=== PATIENT | female | born 1960 | race Caucasian/White ===

== ENCOUNTER 2023-05-25 08:48 | Outpatient (OUT) | payer OTHER, SELFPAY ==
--- NOTE | 2023-05-25 09:02 | ECG_ITS ---
[facility] Test Date: 2023-05-25 Pat Name: SULY HUFFMAN Department: Room: - Gender: Female [employer]: : [id number] Requested By: MATTHEW VICENTE Order Number: [id number] Reading MD: ODALYS SALAZAR Measurements Intervals [place] Rate: 44 P: 25 NC: 193 QRS: -42 QRSD: 108 T: -16 QT: 490 QTc: 421 Interpretive Statements SINUS BRADYCARDIA MARKED LEFT AXIS DEVIATION [QRS AXIS < -30] MINIMAL ST DEPRESSION [0.025+ mV ST DEPRESSION, can't exclude inferolateral ischemia Compared to ECG 05/22/2019 11:27:37 Electronically Signed On 05-26-2023 6:38:53 EDT by ODALYS SALAZAR
[2023-05-25 09:54] LABS: Anion Gap 12.9; BUN Creatinine Ratio 19.6; Carbon Dioxide 29.9 mmol/L (21.0-32.0); Chloride 102 mmol/L (98-107); Estimated GFR (African America >60 (>=60); Estimated GFR (Non-African Ame 50 (>=60); Glucose 123 mg/dL (74-106); Sodium 142 mmol/L (136-145)
[2023-05-25 10:06] LABS: Potassium 2.8 mmol/L (3.5-5.1)
== END 2023-05-25 08:49 | disposition home or self-care (01) ==
LOC: PST 08:51
PROVIDERS: PCP Family Medicine; Visit Provider Obstetrics & Gynecology
DX: Z01.810 Encounter for preprocedural cardiovascular examination (principal); Z01.812 Encounter for preprocedural laboratory examination; D25.0 Submucous leiomyoma of uterus; R10.2 Pelvic and perineal pain
CPT/HCPCS: 80048; 93005

== ENCOUNTER 2023-06-01 13:09 | Outpatient (OUT) | payer OTHER, SELFPAY ==
--- OUTSIDE RECORDS SUMMARY | 2023-06-01 13:23 | XMS_ITS | CCD ---
Author Name Unknown Address [address] [facility] [address] [place] [address] Organization [facility] Care Team Providers Care Athletic Monitor Name Role Phone WADDELL, SELINA S Admitting Unavailable WADDELL, SELINA S Attending Unavailable ELADIA DAVID Primary Care Unavailable ELADIA DAVID Admitting Unavailable ELADIA DAVID Attending Unavailable MISC, DOCTOR Primary Care Unavailable MISC, DOCTOR Consulting Unavailable GILDA REZA Consulting Unavailable WADDELL, SELINA S Admitting Unavailable WADDELL, SELINA S Attending Unavailable ELADIA DAVID Primary Care Unavailable WADDELL, SELINA S Consulting Unavailable WADDELL, SELINA S Admitting Unavailable WADDELL, SELINA S Attending Unavailable ELADIA DAVID Primary Care Unavailable WADDELL, SELINA S Consulting Unavailable WADDELL, SELINA S Admitting Unavailable WADDELL, SELINA S Attending Unavailable ELADIA DAVID Primary Care Unavailable CLINKER, YRIS Consulting Unavailable WADDELL, SELINA S Admitting Unavailable WADDELL, SELINA S Attending Unavailable ELADIA DAVID Primary Care Unavailable WADDELL, SELINA S Consulting Unavailable WADDELL, SELINA S Admitting Unavailable WADDELL, SELINA S Attending Unavailable ELADIA DAVID Primary Care Unavailable WADDELL, SELINA S Consulting Unavailable CLINKER, YRIS Consulting Unavailable WADDELL, SELINA S Admitting Unavailable WADDELL, SELINA S Attending Unavailable ELADIA DAVID Primary Care Unavailable CLINKER, YRIS Consulting Unavailable WADDELL, SELINA S Admitting Unavailable WADDELL, SELINA S Attending Unavailable ELADIA DAVID Consulting Unavailable WADDELL, SELINA S Consulting Unavailable WADDELL, SELINA S Admitting Unavailable WADDELL, SELINA S Attending Unavailable ELADIA DAVID Primary Care Unavailable ELADIA DAVID Primary Care Unavailable NING MCDERMOTT Admitting Unavailable NING MCDERMOTT Attending Unavailable FALGUNI DAVID Consulting Unavailable LOUISE CORCORAN Consulting Unavailable PHIL FRANZ Consulting Unavailable COURTNEY LION Referring Unavailable ELADIA BRAN Primary Care Un available NICOLASA HANNAH Referring Unavailable ELADIA BRAN Primary Care Un available COURTNEY LION Referring Unavailable ELADIA BRAN Primary Care Un available JOSE MICHAEL Consulting Unavailable ELADIA BRAN Primary Care Un available CECILIO SHERMAN Admitting Unavailable CECILIO SHERMAN Attending Unavailable LELA STEPHENS Consulting Unavailable DARRYN CHARLES Consulting Unavailable CECILIO SHERMAN Consulting Unavailable GARFIELD DUMONT Consulting Unavailable CRISTOPHER MCNAIR Consulting Unavailable GERALDINE HUSAIN Consulting Unavailable JESÚS DARBY Consulting Unavailable Eladia Bran Primary Care Provi archana Hussain Kay II Admitting Unavaila shaheen Kay II, Hussain Cowan Attending UnavailEladia Joseph Primary Care Unavailable Eladia David Referring Unavailable MATTEHW VICENTE Attending Unavailable MATTHEW VICENTE Attending Unavailable WHIT GODINEZ Attending Unavailable Allergies Allergy Classification Reported Allergen(s) Allergy Type Date of Onset Reaction(s) Facility (2 sources) Amoxicillin / Clavulanate Drug Allergy 7 [facility] Repository (4 sources) Amoxicillin-Pot Clavulanate Propensity to adverse reactions to drug 0 [place], [place] (2 sources) Amoxicillin; Translations: [amoxicillin] Drug Allergy 1 [facility] (2 sources) Clavulanate; Translations: [clavulanic acid] Drug Allergy 1 [facility] Medications Current Medications Medication Drug Class(es) Dates Sig (Normalized) Sig (Original) acetaminophen 325 mg oral tablet (2 sources) Start: 05-22-2019 acetaminophen (TYLENOL) tablet 650 mg atorvastatin 10 mg oral tablet (7 sources) HMG-CoA Reductase Inhibitor Start: 01-11-2021 take 10 mg by mouth once daily Atorvastatin Active 10 MG PO Daily January 11, 2021 12:00am Start: 05-24-2019 take 1 tablet by ramila th once daily atorvastatin (LIPITOR) 10 MG tablet Take 1 tablet by mouth nightly 30 tablet 3 05/27/2019 Active Start: 05-22-2019 End: 05-24-2019 take 40 mg by mouth once daily 40 mg, Oral, NIGHTLY, F irst dose on 05/22/19 at 2100 docusate sodium 50 mg / sennosides, [facility] 8.6 mg oral tablet (1 source) Start: 05-24-2019 sennosides-docusate sodium (SENOKOT-S) 8.6-50 MG tablet 2 tablet 0.4 ml enoxaparin sodium 100 mg/ml prefilled syringe (1 source) Low Molecular Weight Heparin Start: 05-24-2019 enoxaparin (LOVENOX) injection 40 mg escitalopram 20 mg oral tablet (2 sources) Serotonin Reuptake Inhibitor Start: 01-11-2021 take 20 mg by mouth once daily Escitalopram Oxalate Active 20 MG PO Daily January 11, 2021 12:00am End: 05-27-2019 take 1 tablet by mouth once daily escitalopram (LEXAPRO) 20 MG tablet Take 20 mg by mouth daily 0 05/27/2019 Discontinued (Stop Taking at Discharge) 2 ml famotidine 10 mg/ml injection (2 sources) Histamine-2 Receptor Antagonist Start: 05-24-2019 famotidine (PEPCID) injection 20 mg Start: 05-22-2019 End: 05-23-2019 20 mg, Intravenous, 2 TIMES DAILY, First dose on 05/22/19 at 2100 Administer over 2 minutes. fluticasone propionate 0.05 mg/actuat metered dose nasal spray (5 sources) Corticosteroid Start: 05-28-2019 take 1 spray(s) nasal route once daily fluticasone (FLONASE) 50 MCG/ACT nasal spray 1 spray by Each Nostril route daily 1 Bottle 3 05/28/2019 Active Start: 05-23-2019 fluticasone (F LONASE) 50 MCG/ACT nasal spray 1 spray glucagon (rdna) 1 mg injection (1 source) Antihypoglycemic Agent Start: 05-24-2019 glucago n (rDNA) injection 1 mg 1000 ml glucose 500 mg/ml injection (3 sources) Start: 05-24-2019 glucose (GLUTO SE) 40 % oral gel 15 g Start: 05-24-2019 dextrose 50 % IV solution Start: 05-24-2019 dextrose 5 % s olution 1 ml hydrALAZINE hydrochloride 20 mg/ml injection (1 source) Arteriolar Vasodilator Start: 05-24-2019 hydrALAZINE (APRESOLINE) injection 10 mg hydroCHLOROthiazide 25 mg / triamterene 37.5 mg oral tablet (6 sources) Potassium-sparing Diuretic, Thiazide Diuretic Start: 01-11-2021 take 1 tablet by mouth once daily Triamterene-Eitzen chlorothiazid Active 1 TAB PO Daily January 11, 2021 12:00am Start: 05-25-2019 triamterene-hy drochlorothiazide (MAXZIDE-25) 37.5-25 MG per tablet 1 tablet take 1 tablet by mouth once daily triamterene-hydrochlorothiazide (MAXZIDE -25) 37.5-25 MG per tablet Take 1 tablet by mouth daily 0 Active ibuprofen 800 mg oral tablet (1 source) Nonsteroidal Anti-inflammatory Drug Start: 01-11-2021 take 800 mg by mouth every eight hours Ibuprofen Active 800 MG PO Q8H January 11, 2021 12:00am insulin lispro 100 unt/ml injectable solution (2 sources) Insulin Analog Start: 05-24-2019 insulin lispro (HUMALOG) injection vial 0-3 Units labetalol (NORMODYNE;TRANDA TE) injection syringe 10 mg (1 source) Start: 05-22-2019 10 mg, Intravenous, EVERY 10 MIN PRN, High Blood Pressure, Starting 05/22/19 at 2040 For systolic blood pressure greater than >150 mmHg. Hold for HR less than 50 and notify provider. losartan potassium 50 mg oral tablet (6 sources) Angiotensin 2 Receptor Jay Start: 01-11-2021 take 50 mg by mouth once daily Losartan Active 50 MG PO Daily January 11, 2021 12:00am Start: 05-25-2019 take 50 mg by mouth once daily 50 mg, Oral, DAILY, First dose on Thu05/25/19 at 0900 100 ml magnesium sulfate 10 mg/ml injection (1 source) Start: 05-22-2019 take 1 mL intravenous route every hour as needed 1 g, Intravenous, at 100 mL/hr, Administ er over 1 Hours, PRN, Other, Magnesium Replacement, Starting 05/22/19 at 2041 Mg Lab Replacement Action 1.4-1.6 1 gram IVPB x 2 doses &nb sp; (2 grams total) 1.0-1.3 1 gram IVPB x 4 doses &nb sp; (4 grams total) <1.0 CALL PROVIDER and &nbs p; & nbsp; 1 gram IVPB x 4 doses (4 grams total) Infuse at 1 gram/hr. Repeat Mag level next AM. Not for use in Patients with CrCl less than 30 mL/min. melatonin 1 mg oral tablet (3 sources) Start: 05-25-2019 melatonin tablet 5 mg Start: 05-25-2019 End: 05-25-2019 melatonin tablet 2 mg Start: 05-24-2019 End: 05-24-2019 melatonin tablet 1 mg 24 hr metoprolol succinate 25 mg extended release oral tablet (2 sources) beta-Adrenergic Jay Start: 01-11-2021 take 50 mg by mouth once daily Metoprolol Succinate Active 50 MG PO Daily January 11, 2021 12:00am End: 05-27-2019 take 1 tablet by mouth twice daily metoprolol (LOPRESSOR) 100 MG tablet Take 100 mg by mouth 2 times daily 0 05/27/2019 Discontinued (Stop Taking at Discharge) oxyCODONE hydrochloride 5 mg oral tablet (3 sources) Opioid Agonist Start: 05-24-2019 End: 05-23-2019 oxyCODONE (ROXICODONE) immediate release tablet 5 mg Start: 05-23-2019 End: 05-23-2019 oxyCODONE (ROXICODONE) immed iate release tablet 5 mg perflutren lipid microspheres (DEFINITY) injection 1.65 mg (1 source) Start: 05-22-2019 1.65 mg (1.5 mL), Intravenous, IMG ONCE PRN, Other, Inability to detect 2 or more contiguous segments in any of the 3 apical views due to poor endocardial border definition, Starting 05/22/19 at 2040, For 1 dose Echocardiogram should first be performed without contrast and if exam is adequate then DO NOT administer the contrast and delete the order using Per Protocol order mode. If unable to detect 2 or more contiguous segments in any of the 3 apical views due to poor endocardial border definition, then assess patient for any contraindications to echo contrast and if none present administer the echo contrast. Promethazine (1 source) Phenothiazine Start: 05-22-2019 promethazine (PHENERGAN) tablet 12.5 mg verapamil hydrochloride 40 mg oral tablet (5 sources) Calcium Channel Jay Start: 05-24-2019 take 1 tablet by mouth every eight hours verapamil (CALAN) 40 MG tablet Take 1 tablet by mouth every 8 hours 90 tablet 2 05/27/2019 Active Completed/Discontinued Medications Medication Drug Class(es) Dates Sig (Normalized) Sig (Original) acetaminophen 325 mg / HYDROcodone bitartrate 5 mg oral tablet (1 source) Opioid Agonist Start: 01-11-2021 End: 01-14-2021 take 1 tablet by mouth every six hours Hydrocodone-Acetam inophen ([place]) 5-325 mg Tablet Discontinued 1 TAB PO Q6H January 11, 2021 12:00am January 14, 2021 1:53pm benzonatate 100 mg oral capsule (2 sources) Non-narcotic Antitussive Start: 01-11-2021 End: 01-14-2021 take 1 capsule by mouth three times daily Benzonatate (Tessalon Perles) 100 mg Capsule Discontinued 100 MG PO Three times daily January 11, 2021 12:00am January 14, 2021 1:53pm Start: 05-23-2019 benzonatate (T ESSALON) capsule 100 mg ceFAZolin (ANCEF) 2 g in dextrose 5 % 50 mL IVPB (1 source) Start: 05-24-2019 End: 05-24-2019 ceFAZolin (ANCEF) 2 g in dextrose 5 % 50 mL IVPB 2 ml fentaNYL 0.05 mg/ml injection (3 sources) Opioid Agonist Start: 05-24-2019 End: 05-24-2019 fentaNYL (SUBLIMAZE) injection 50 mcg Start: 05-24-2019 End: 05-24-2019 fentaNYL (SUBLIMAZE) injecti on gadoteridol (PROHANCE) injection 19 mL (1 source) Start: 05-22-2019 End: 05-22-2019 gadoteridol (PROHANCE) injection 19 mL iodixanol (VISIPAQUE) injection 200 mL (1 source) Start: 05-24-2019 End: 05-24-2019 iodixanol (VISIPAQUE) injection 200 mL Iohexol (1 source) Radiographic Contrast Agent Start: 05-22-2019 End: 05-22-2019 iohexol (OMNIPAQUE 350) solution 90 mL iopamidol (ISOVUE-370) 76 % injection 75 mL (1 source) Start: 06-10-2019 End: 06-10-2019 iopamidol (ISOVUE-370) 76 % injection 75 mL levETIRAcetam 500 mg oral tablet (6 sources) Start: 01-11-2021 End: 01-14-2021 take 500 mg by mouth twice daily Levetiracetam Discontinued 500 MG PO Twice daily January 11, 2021 12:00am January 14, 2021 1:53pm Start: 05-23-2019 take 1 tablet by ramila twice daily levETIRAcetam (KEPPRA) 500 MG tablet Take 1 tablet by mouth 2 times daily 60 tablet 2 05/27/2019 Active levETIRAcetam (KEPPRA) 2,000 mg in sodium chloride 0.9 % 100 mL IVPB (1 source) Start: 05-23-2019 End: 05-23-2019 levETIRAcetam (KEPPRA) 2,000 mg in sodium chloride 0.9 % 100 mL IVPB methylPREDNISolone sodium (SOLU-MEDROL) 1,000 mg in sodium chloride 0.9 % 250 mL IVPB (1 source) Start: 05-24-2019 End: 05-26-2019 methylPREDNISolone sodium (SOLU-MEDROL) 1,000 mg in sodium chloride 0.9 % 250 mL IVPB 2 ml midazolam 1 mg/ml injection (1 source) Benzodiazepine Start: 05-24-2019 End: 05-24-2019 midazolam (VERSED) injection niMODipine 30 mg oral capsule (1 source) Dihydropyridine Calcium Channel Jay Start: 05-22-2019 End: 05-24-2019 60 mg, Oral, EVERY 4 HOURS SCHEDULED (6 times per day), First dose on 05/22/19 at 2100 Notify provider for systolic blood pressure below 110 mmHg after administering niMODipine. predniSONE 5 mg oral tablet (1 source) Start: 01-11-2021 End: 01-14-2021 Prednisone Discontinued 5 MG PO As Directed January 11, 2021 12:00am January 14, 2021 1:54pm simvastatin 20 mg oral tablet (2 sources) HMG-CoA Reductase Inhibitor Start: 01-11-2021 End: 01-14-2021 take 1 tablet by mouth once daily at bedtime Simvastatin (Zocor) 20 mg Tablet Discontinued 20 MG PO Daily at bedtime January 11, 2021 12:00am January 14, 2021 1:54pm End: 05-27-2019 take 1 tablet by mouth once daily simvastatin (ZOCOR) 20 MG tablet Take 20 mg by mouth nightly 0 05/27/2019 Discontinued (Stop Taking at Discharge) 50 ml sodium chloride 9 mg/m l injection (5 sources) Start: 06-10-2019 End: 06-10-2019 0.9 % sodium chloride bolus Start: 05-22-2019 End: 05-25-2019 0.9 % sodium chloride infusi on Start: 05-22-2019 10 mL, Intrave nous, EVERY 12 HOURS SCHEDULED (2 times per day), First dose on 05/22/19 at 2100 Start: 05-22-2019 take 10 mL intraveno us route once as needed 10 mL, Intravenous, PRN, Line Care, After every IV line use, Starting 05/22/19 at 2040 Start: 05-22-2019 sodium chlorid e flush 0.9 % injection 10 mL zolpidem tartrate 10 mg oral tablet (1 source) gamma-Aminobutyric Acid-ergic Agonist Start: 01-11-2021 End: 01-14-2021 take 1 tablet by mouth once daily at bedtime Zolpidem (Ambien) 10 mg Tablet Discontinued 10 MG PO Daily at bedtime January 11, 2021 12:00am January 14, 2021 1:54pm Problems Active Problems Problem Classification Problem Date Documented Da te Episodic/Chronic Acute cerebrovascular disease (9 sources) Nontraumatic subarachnoid hemorrhage, unspecified; Translations: [Hemorrhage into subarachnoid space of neuraxis] Onset: 05-22-2019 05-22-2019 Chronic Other aftercare (1 source) 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 extermination inspector (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; Translations: [OTH SECURITY TESTER CURRENT DRUG THERAPY] Onset: 05-24-2019 Episodic Other circulatory disease (1 source) Vasculitis; Translations: [Vasculitis (HCC)] Chronic Other nervous system disorders (3 sources) Anesthesia of skin; Translations: [ANESTHESIA OF SKIN] Onset: 05-22-2019 Episodic Other nervous system disorders (1 source) Ataxia, unspecified; Translations: [ATAXIA UNSPECIFIED] Onset: 05-24-2019 Episodic Paralysis (1 source) 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; Translations: [MONOPLEG UP LIMB LT NONDOM SIDE] Onset: 05-24-2019 Chronic Spondylosis; intervertebral disc disorders; other back problems (2 sources) Other intervertebral disc degeneration, lumbar region; Translations: [Spondylosis without myelopathy or radiculopathy, lumbar region] Onset: 03-29-2019 Chronic Spondylosis; intervertebral disc disorders; other back problems (11 sources) Low back pain; Translations: [Muscle spasm of back] Onset: 08-30-2018 Episodic Transient cerebral ischemia (5 sources) Transient cerebral ischemia; Translations: [TIA (transient ischemic attack)] 05-23-2019 Chronic Past or Other Problems Problem Classification Problem Date Documented Da te Episodic/Chronic Other acquired deformities (1 source) Spondylolisthesis , lumbar region; Translations: [SPONDYLOLISTHESI S LUMBAR REGION] Onset: 12-03-2018 Episodic Other screening for suspected conditions (not mental disorders or infectious disease) (6 sources) Encounter for screening mammogram for malignant neoplasm of breast; Translations: [Protein level - finding] Onset: 07-29-2018 01-14-2021 Episodic Residual codes; unclassified (1 source) Family history of malignant neoplasm of trachea, bronchus and lung; Translations: [FAM HX MALIG NEOPLSM TRACH BRON LNG] Onset: 08-06-2018 Episodic Residual codes; unclassified (1 source) Family history of malignant neoplasm of other organs or systems; Translations: [FAM HX MALIG NEOPLASM OTH ORGN/SYS] Onset: 08-06-2018 Episodic Results Test Name Value Interpretation Reference Range Facility SCREENING MAMMOGRAM W/BOSSMAN, BILATERAL*on 09-10-2021 SCREENING MAMMOGRAM W/BOSSMAN, BILATERAL* COMPARISON: Dating back to August 30, 2020 and August 19, 2019. TECHNIQUE: 2D and 3D Tomosynthesis of the right and left breasts was performed. FINDINGS: Breast composition demonstrates scattered fibroglandular densities. Overall appearance is stable. Typically benign calcifications. No suspicious microcalcifications, dominant mass lesions, or distortion is present. IMPRESSION: BI-RADS 2- Benign Mammogram Board Certified Radiologist. Accredited by the ACR and FDA. MAMMOGRAPHY IS VERY IMPORTANT TO YOUR HEALTH. THE CURRENT [place] [employer] GUIDELINES RECOMMENDS ANNUAL MAMMOGRAPHY BEGINNING AT AGE 42 THIS FACILITY USES A REMINDER SYSTEM TO ENSURE ALL PATIENTS RECEIVE REMINDER NOTIFICATIONS AT THE APPROPRIATE TIME BASED ON THE RECOMMENDATIONS OF THIS EXAM. Report reported and signed by Salo Pacheco on 09/10/2021 1532 Normal [facility] Specialist Discharge CCD Assessmenton 0 11-19-2020 Discharge CCD Assessment [facility] Patient: SULY HUFFMAN [address] [place] [address] MR#: [id number] DISCHARGE CCD ASSESSMENT : 64 Service Date: 11/19/20 0853 Discharge CCD Assessment Assessment Mr Huffman, 59 y/o C f. PMHx of HTN, unprovoked hemorrhagic CVA (2019), HLD, CHRISTIE, obesity, rosacea, CHAPIS. S/p L4-L5 decompressive laminectomy POD#1, done for lumbar stenosis. Surgery was uneventful, with minimal blood loss, done under general anaesthesia. Postoperative period is uneventful. Vitally and medically stable. Ambulates with help since yesterday evening. No Lui, has drainage. Going home with drainage, ppx Abx prescribed. Electronically Signed eSign Date and Time Hina Richardson [place] Normal [facility] Anesthesia Noteon 11-17-2020 Anesthesia Note [facility] Patient: SULY HUFFMAN [address] [place] [address] MR#: [id number] ANESTHESIA NOTE : Service Date: 11/17/20 1223 Post-anesthesia Note Note Patient assessed post operatively for the following: [x ] Respiratory function, including respiratory rate, airway patency and oxygen saturation [x ] Cardiovascular function, including pulse rate and blood pressure [x ] Mental status [x ] Temperature [x ] Pain [x ] Nausea and vomiting [x ] Postoperative hydration [x ] No Visual Changes Due to the following condition(s) additional monitoring may be necessary: [ ] [x ] No apparent anesthesia complications noted. [ ] Status as per pre-op Electronically Signed eSign Date and Time Vicente Llamas 11/17/20 1224 Garland Harris MD Normal [facility] BASIC MET PANELon 11-17-2020 Anion gap [Moles/Vol] 12 mmol/L Normal 6-18 [facility] Comment on above: Performed By: #### L [id number], L500.74629 ####Test performed at: [address] [address] Calcium [Mass/Vol] 8.2 mg/dL Low 8.5-10.1 [facility] Comment on above: Performed By: #### L 500.56158, L500.75830 ####Test performed at: [address] [address] Chloride [Moles/Vol] 100 mmol/L Normal 98-107 [facility] Comment on above: Performed By: #### L 500.31219, L500.92704 ####Test performed at: [address] [address] CO2 [Moles/Vol] 27 mmol/L Normal 21-32 [facility] Comment on above: Performed By: #### L 500.31191, L500.37094 ####Test performed at: [address] [address] Creatinine [Mass/Vol] 0.909 mg/dL Normal 0.550-1.020 [facility] Comment on above: Performed By: #### L 500.94130, L500.66080 ####Test performed at: [address] [address] Glucose [Mass/Vol] 190 mg/dL High 70-99 [facility] Comment on above: Result Comment: Fast ing GLUCOSE reference range has been updated per (ADA) [place] [employer]'s recommendation. 06/08/2018 Performed By: #### L 500.50269, L500.70141 ####Test performed at: [address] [address] OSM 289 mosm/kg Normal 270-300 [facility] Comment on above: Performed By: #### L 500.65977, L500.35709 ####Test performed at: [address] [address] Potassium [Moles/Vol] 3.2 mmol/L Critically low 3.5-5.1 [facility] Comment on above: Result Comment: Crit ical Result(s) Called at: 09:36:29 on 11/17/2020 by: Diana Fontaine and read back by: trinh pandey Performed By: #### L 500.69862, L500.16401 ####Test performed at: [address] [address] Sodium [Moles/Vol] 136 mmol/L Normal 136-145 [facility] Comment on above: Performed By: #### L 500.08714, L500.34848 ####Test performed at: [address] [address] Urea nitrogen [Mass/Vol] 17 mg/dL Normal 7-18 [facility] Comment on above: Performed By: #### L 500.23691, L500.77321 ####Test performed at: [address] [address] GFR ESTIMATEon 11-17-2020 IF AMER > 60 Normal > 60 [facility] Comment on above: Result Comment: eGFR (Estimated GFR) Units of measure:mL/min/1.73 meters sq. *CALCULATION REVISED 01/02/2015;IDMS-traceable MDRD equation eGFR is derived from the reexpressed MDRD Study equation using the following parameters: serum creatinine, age, gender and race. An eGFR<60 mL/min/1.73m2 for >3 months is consistent with chronic kidney disease. Refer to KDOQI guidelines for clinical interpretation. Performed By: #### L 500.42847, L500.20003 ####Test performed at: [place] [id number] IF non-AFR AMER > 60 Normal > 60 [facility] Comment on above: Performed By: #### L 500.25498, L500.31391 ####Test performed at: [address] [address] HGB AND HCTon 11-17-2020 Hematocrit (Bld) [Volume fraction] 39.2 % Normal 36.0-48.0 [facility] Comment on above: Performed By: #### L 200.43811 ####Test performed at: [address] [address] Hemoglobin (Bld) [Mass/Vol] 13.4 g/dL Normal 12.0-15.0 [facility] Comment on above: Performed By: #### L 200.49289 ####Test performed at: [address] [address] Internal Med Progress Noteon 11-17-2020 Internal Med Progress Note [facility] Patient: SULY HUFFMAN [address] [place], [place] [id number] MR#: [id number] PROGRESS NOTE - Internal Medicine : 64 Service Date: 11/17/20 0556 Assessment/Plan-[facility] Director al Med Be sure to note changes Be sure to note changes Electronically Signed eSign Date and Time Hina Richardson Residen Normal [facility] Internal Med Progress Note [facility] Patient: SULY HUFFMAN [facility] [place] [id number] MR#: [id number] PROGRESS NOTE - Internal Medicine : 64 Service Date: 11/17/20 0554 Subjective Primary Resident: Miki Richardson After Hours Call: [phone] Red Team Summary of Stay Mr Huffman, 59 y/o C f. PMHx of HTN, unprovoked hemorrhagic CVA (2019), HLD, CHRISTIE, obesity, rosacea, CHAPIS. S/p L4-L5 decompressive laminectomy POD#1, done for lumbar stenosis. Surgery was uneventful, with minimal blood loss, done under general anaesthesia. Postoperative period is uneventful. Vitally and medically stable. Ambulates with help since yesterday evening. No Lui, has drainage. Events since last encounter Uneventful Subjective seen and examined No complaints, ambulates by herself Objective Exam Vitals and I/O Vital Signs Verdana 4d Result Date Time Pulse Ox 95 11/170 B/P 136/63 11/17 109 O2 Delivery ROOM AIR 11/17 109 Temp 36.3 11/17 109 Pulse 64 11/17 109 Resp 20 11/17 109 O2 Flow Rate 3.0 09/03 1930 Intake AND Output Verdana 4d 11/17 2300 11/16 2300 Intake Total 1480 480 Output Total 30 230 Balance 1450 250 Intake, IV 1000 Oral 480 480 utput, 30 30 rainage Output, Urine 0 200 Patient 95.45 kg eight Weight PREADMISSION TESTING WGT easurement ethod Assessment/Plan-[facility] Laboratory Director al Med Problem List 1. S/P laminectomy Med Reasons/Tx for Con't stay s/p decompressive laminectomy POD #1 Assessment # s/p L4-L5 decompressive laminectomy POD#1 for lumbar stenosis, 11/16/20 * Denies complaints, ambulates well w/o help * V/s: BP 130/60s; HR 62, t 36.3C, sat 95% on RA * PE: 5/5 b/l strength, sensation preserved * Labs: K 3.2 * Plan: - Percocet Q4PRN po - Milk of Mg 30 ml PRN po - Zofran 4 mg Q8PRN - Vasotec 2.5 mg Q6PRN IV - Carisoprodol 350 mg TIDPRN po - Tylenol 650 mg Q4PRN po - incencive spirometry encouraged - given Klor-Con 40 mEq once po # Hx of HTN, controlled * PE: * EKG prior surgery (11/06/20): sinus bradycardia 50 (pt on Metoprolol), normal axis, LA enlargement, no ST-changes * Plan: - Losartan 50 mg daily po - Metoprolol 50 mg daily po - Maxzide 1 tab daily po # Hx of unprovoked hemorrhagic CVA, 2020 # Rosacea # Obesity, BMI 32 # hx of HLD # hx of CHRISTIE * Labs: wnl # hx of CHAPIS * Lexapro 20 mg daily po # DVT ppx * ICPDs * Ambulation Be sure to note changes Be sure to note changes DVT Prophylaxis ICPD, ambulation *Attending Attestation Attending Attestation Attending Attestation patient stable for dc All pertinent elements of history and physical exam were confirmed by me. Agree with above documentation. The [resident's, PA's, RN OPERATING ROOM's] assessment and plan reflect my input. Discussed with documenting provider and patient. Plan is as outlined above. Electronically Signed eSign Date and Time Ushakova,Hina ResideJean Claude Navarrete Res, Katarzyn a MD 11/17/20 1125 Normal [facility] OT Therapy Recommendationson 11-17-2020 OT Therapy Recommendations [facility] Patient: SULY HUFFMAN [address] [id number] MR#: [id number] OT THERAPY RECOMMENDATIONS : 64 Service Date: 11/17/20 1037 Therapy Recommendations Therapy Recommendations Recommendations Occupational therapy eval complete. Continue acute OT as per POC. Recommend d/c home with family assist. See OT eval for details. Electronically Signed eSign Date and Time Brynn Suero OT Rich 11/17/20 1038 Tammi Ham OT Normal [facility] PT Therapy Recommendationson 11-17-2020 PT Therapy Recommendations [facility] Patient: SULY HUFFMAN [address] [place], [place] [id number] MR#: [id number] PT THERAPY RECOMMENDATIONS : 64 Service Date: 11/17/20 1123 Therapy Recommendations Therapy Recommendations Recommendations PT eval complete. No further acute PT needs. Recommend d/c home when medically cleared. Electronically Signed eSign Date and Time Bettie Sorensen PT 11/17/20 1123 Normal [facility] z OT Inpatient Evaluationon 11-17-2020 z OT Inpatient Evaluation [facility] Patient: SULY HUFFMAN [address] [id number] MR#: [id number] OT INPATIENT EVALUATION : 64 Inpatient OT HPI Date of Service 11/17/20 Time In: 09 Time Out: 0939 Total Treatment Time (Mins) 23 Visit Reason LUMBAR STENOSIS Surgery Type/Date L4-L5 decompressive laminectomy 11/16/20 Referral Date 11/17/20 Tx Diagnosis: LUMBAGO Insurance Name [facility] Course Pt is a 59 y/o F POD 1 s/p L4-L5 decompressive laminectomy. Pt has PMHx of HTN, unprovoked hemorrhagic CVA (2019), HLD, CHRISTIE, obesity, rosacea, and CHAPIS. Pt cleared for OT eval by RN. Pt supine in bed, agreeable to therapy session. Past Medical/Social History Problem List Surgical Problems S/P laminectomy Living Arrangements Home Lives With Spouse Steps to Enter House 4 Stairs Inside House 0 Railings Right Handrail ADL Equipment Elev. Toilet Seat w Arms, Produce Team Lead, Shower Chair Bedroom Location 1st Floor Bathroom Location 1st Floor Transportation Method Patient Drives Functional Level Pt reports being independent with all ADLs/IADLs prior to surgery. Pt did not use device for ambulation. Objective Precautions Back Brace, Lumbar Spine Equipment Peripheral IV Orientation Person, Place, Time, Situation Behavior Within Functional Limits Sensation Within Functional Limits Tone Within Functional Limits Hand Dominance Right Coordination Fine Motor Coordination Within Functional Limits Gross Motor Coordination Within Functional Limits Coordination Within Functional Limits Opposition Intact Proprioception Within Normal Limits ROM RUE ROM Within Functional Limits LUE ROM Within Functional Limits Strength RUE Strength Within Functional Limits LUE Strength Within Functional Limits Outcome Measures Mitzi Score Mitzi Score Response Value Feeding Independent 10 Bathing Needs Help 0 Grooming Independent 5 Dressing Independent 10 Bowels Continent 10 Bladder Continent 10 Toilet Independent 10 Transfer(Bed to Chair and Back) Independent 15 obility (On Level Surfaces) Independent 15 tairs Needs Help 5 otal 90 AM-PAC Inpt Daily Activity AM-PAC Inpt Daily Activity Response Value Lower Body Clothing None 4 Bathing A Little 3 Toileting None 4 Upper Body Clothing None 4 Personal Grooming None 4 Eating Meals None 4 Total 23 Comments 10% disability based on the Mitzi Index ADL Function ADL Function Upper Body Dressing Anticipated, Modified Independent Lower Body Dressing Anticipated, Supervision Upper Body Bathing Anticipated, Supervision Lower Body Bathing Anticipated, Standby Assist Toileting Anticipated, Supervision Feeding Anticipated, Independent Grooming Anticipated, Independent Transfers Transfers Supine to Sit Supervision (log roll) Sit to Stand Supervision Stand to Sit Supervision Bed to Chair Supervision Comments Pt ambulated in hallway 100'x2 with supervision, no device Static Sitting Balance Good Dynamic Sitting Balance Good Static Standing Balance Good Dynamic Standing Balance Good Treatment Additional Minutes of Tx Performed 15 Remained in Chair All Needs Within Reach Yes Comments Pt remained in bedside chair, all needs met. Call wade in reach. Assessment/Plan for Inpt OT DC Recommendations Home-No Home Health Care, Family Assistance Topic #1 Rehabilitation Techniques Teaching Method: WRITTEN MATERIALS Teaching Method: VERBAL EXPLANATION Teaching Method: TEACHBACK Outcome: VERBALIZED/ADEQ TEACHBACK Comments Pt provided with home going instructions packet and educated on spinal precautions. Pt educated on modified ADL techniques and use of adaptive equipment for LB dressing. Pt also educated on 3 luis UB exercises and instructed to complete 3-5 times/day. Problems ADL Skills, Activity Tolerance, Functional Mobility, Functional Balance Rehab Potential Good Treatment Tolerance Good Assessment Patient demonstrates limitations and decline from functional baseline due to post operative pain, weakness, and precautions. Skilled OT services are indicated to address patient deficits and to increase patient safety/independence with ADL management and functional mobility tasks. Patient was pleasant, alert, and cooperative throughout the session. Transfer in/out of bed with: MOD I Complete LB dressing/bathing with: MOD I Transfer in/out tub or walk in shower: MOD I Performs UE Exercise With: Mod I LUIS UE HEP Attend to toilet tasks: MOD I Increased Strength and Endurance >8 Mins Standing balance at sink during ADL 10 Mins Verbalize/demo Spinal Precautions for ADLs and Transfers Patient Stated Goal: to go home Goals discussed with: Patient Frequency of Therapy 1-3 Times/Week, PRN Duration Until Discharge Treatment Neuromuscular Reeducation, Therapeutic Exercise, Therapeutic Activity, Gait Trainin (more content not included)... Normal [facility] z PT Inpatient Discharge Not efraín 11-17-2020 z PT Inpatient Discharge Note [facility] Patient: SULY HUFFMAN [address] [place] [address] MR#: [id number] PT INPATIENT DISCHARGE NOTE : 64 Service Date: 11/17/20 1435 z PT Inpt. HPI Discharge Note Total number of visits 1 Date of Discharge 11/17/20 Start of Care Date 11/17/20 Final Date of Care 11/17/20 z PT Inpatient AP Discharge Treatment: Therapeutic Activity, Patient Education, Therapeutic Exercise, Gait Training, HEP Treatment Goals Achieved: Yes Plan Discharge from PT Discharge Recommendations Home-No Home Health Care PT Status: DISCHARGED Electronically Signed eSign Date and Time Bettie Sorensen PT 11/17/20 1436 Normal [facility] z PT Inpatient Evaluationon 11-17-2020 z PT Inpatient Evaluation [facility] Patient: SULY HUFFMAN [address] [place] [address] MR#: [id number] PT INPATIENT EVALUATION : 64 Service Date: 11/17/20 1146 Inpatient PT HPI Date of Service 11/17/20 Time In: 914 Time Out: 0940 Total Treatment Time (Mins) 25 Room Number 617 Visit Reason LUMBAR STENOSIS Surgery Type: Luis L4-5 decompressive lami Surgery Date: 11/16/20 Referral Date 11/16/20 Tx Diagnosis: LOW BACK PAIN Insurance Name [facility] Course 59 y.o female at [facility] for above sx d/t lumbar stenosis. PT orders received eval/tx, encourage ambulation, logroll, up ad yaneth /c assist, brace OOR. Pt supine, agreeable, OT present for OT evaluation. Past Medical/Social History Problem List Surgical Problems S/P laminectomy Living Arrangements Home Lives With Spouse Mobility Aids None Steps to Enter House 4 Stairs Inside House 0 Railings Right Handrail Functional Level Pt denies AD use at baseline, but reports decreased tolerance for standing/walking d/t worsening back pain. Denies falls, retired, +drives. Spouse available for assist upon d/c. Objective Pain Pain Character Ache Pain Location Back Precautions Back Brace, Spinal Equipment Drain, Peripheral IV Dynamic Sitting Balance Good Dynamic Standing Balance Good Orientation Person, Place, Time, Situation Behavior Cooperative Sensation Within Functional Limits Endurance Good Posture Rounded Shoulders (5'8 210#) Wound/Skin WFL;drain in place Coordination Coordination Within Functional Limits ROM Comments WFL Strength Comments At least 3/5 throughout Outcome Measures AM-PAC Inpatient Mobility AM-PAC Inpatient Mobility Response Value Turn Back/Side While Flat WO Bedrails None 4 Move From Lying to Side of Bed WO Bedrails None 4 Move To/From Bed to Chair None 4 Stand Up From Chair Using Arms None 4 Walk in Hospital Room None 4 limb 3-5 Steps W Railing A Little 3 otal 23 Mobility Transfers Supine to Sit Supervision Sit to Stand Supervision Stand to Sit Supervision Rolling Supervision Weight Bearing No Restrictions Comments Supine-sit /c min VC for logroll;good return demo. Pt assisted in donning of brace at bedside, no difficulty. Sit-stands /c UE support, steady transfer. Pt agreeable to sit up in chair end of session, NAD. Gait Patient ambulated With Supervision, With Standby Assist For (Feet) 150x2 Comments Brace in place. Pt /c initial single UE support of IV pole, but able to progress to no UE support. Remains /c step through gait, erect posture, narrow SHAHNAZ. Denies WAHL/dizziness. Stairs Steps Up 3 Steps Down 3 Device Right Handrail Pattern Non-Reciprocating Assistance Required With Supervision Comments Pt cued for technique;good return demo Treatment Additional Minutes of Tx Performed 10 Remained in Chair All Needs Within Reach Yes Comments Pt instructed on lumbar precautions, logroll, activity AND d/c recs. Pt completed supine BLE antiembolics x10, review of written handout. Additional gait/stair training /c discussion of home going recs. Assessment/Plan for Inpt PT Discharge Recommendations Home-No Home Health Care Topic #1 Role of PT, HEP, precautions Teaching Method: TEACHBACK Outcome: VERBALIZED/ADEQ TEACHBACK Problems Decreased ROM, Pain Rehab Potential Good Treatment Tolerance Good Assessment Pt presents /c above problem list s/p lumbar sx /c postop pain/precautions. Pt demonstrates ability to safely complete all mobility tasks at supervision/mod I level within precautions. No further acute PT needs. Recommend d/c home when medically cleared. Patient Stated Goal: NA Patient Status DISCHARGED Eval Completed Yes Eval Complexity Low Treatment Performed Yes Electronically Signed eSign Date and Time Bettie Sorensen PT 11/17/20 1444 Normal [facility] H & Bj 11-16-2020 H & P [facility] Patient: SULY HUFFMAN [address] [place] [address] MR#: [id number] HISTORY and PHYSICAL : Service Date: 11/16/20 181 History of Present Illness Source of Information PATIENT Chief Complaint/Present Illness: s/p L4-L5 decompressive laminectomy HPI Mr Huffman is 59 y/o female, was admitted for scheduled L4-L5 decompressive laminectomy due to lumbar stenosis. PMHx of HTN, unprovoked hemorrhagic stroke (2019), HLD, CHRISTIE, obesity, rosacea, CHAPIS. S/p L4-L5 decompressive laminectomy POD#0. Pt seen and examined in PACU after uneventful surgery, under general anaesthesia with EBL 30 ml. V/s: BP 130/60s, HR 79, sat 91% with NC on 4 L of O2. Vitally and medically stable. Soc hx: denies illicit drug use and smoking; drinks alcohol socially. Medical/Surgical History Past Medical History Neurological History Cerebral Hemorrhage, Spinal Cord Disease Cardiovascular History Hyperlipidemia, Hypertension GI History CHRISTIE Psychiatric History Anxiety Disorder Family/Social History Social History Smoking Status NEVER SMOKER Packs/Day * Alcohol YES Amount OCCASIONAL How Often OCCASIONALLY (Socially) Drug Use NO Drug Type * Opioid Assessment Naive less than 30mme/day FEMALE Opioid Risk Tool Total/Score 0 MALE Opioid Risk Tool Total/Score 0 Risk Stratification LOW RISK (Score <=3) Advance Directives Advance Directives Full Code Allergies/Home Medications Allergies Coded Allergies: NO KNOWN ALLERGENS (07/23/20) Reconcile Medications Scheduled Medications Escitalopram Oxalate * (Lexapro *) 20 MG TABLET 20 MG PO DAILY, Ref 0 (Reported) Entered as Reported by BONIFACIO JOSHI on 07/23/20718 Last Action: Continued on 11/16/202033 by JEAN CLAUDE DALAL Losartan Potassium * (Cozaar *) 50 MG TABLET 50 MG PO DAILY@12N, Ref 0 (Reported) Entered as Reported by BONIFACIO JOSHI on 07/23/20718 Last Action: Continued on 11/16/202033 by JEAN CLAUDE DALAL Metoprolol Succinate* (Toprol XL*) 50 MG TABLET.DR 50 MG PO DAILY, Ref 0 (Reported) Entered as Reported by BONIFACIO JOSHI on 07/23/20718 Last Action: Continued on 11/16/202033 by JEAN CLAUDE DALAL Triamterene/Hydrochlor othiazide * (Maxzide 37.5mg-25mg *) 1 TAB 1 TAB PO DAILY, Ref 0 ( Reported) Entered as Reported by BONIFACIO JOSHI on 07/23/20719 Last Action: Continued on 11/16/202033 by JEAN CLAUDE DALAL Scheduled PRN Medications Carisoprodol * (Soma 350mg Tablet*) 350 MG TABLET 350 MG PO TIDPRN PRN SPASMS 7 Days #21 TABLET, Ref 0 Prescribed by LEANNE BHATIA on 11/16/20 Last Action: Held on 11/16/202033 by JEAN CLAUDE DALAL oxyCODONE HCl 5mg AND Acetaminophen 325mg * (Percocet 5mg/325mg Tablet *) 1 EACH TABLET 1 EACH PO Q4-6H PRN PRN POST OP PAIN 7 Days #42 TABLET, Ref 0 Prescribed by LEANNE BHATIA on 11/16/20 Last Action: Held on 11/16/202033 by JEAN CLAUDE DALAL Review of Systems* Review of Systems Constitutional Denies: Fever. EENT Denies: Vision Change, Vision Problems. Cardiovascular Denies: Chest Pain. Pulmonary Denies: Pleuritic Chest Pain, Dyspnea, Wheezing. GI Denies: Abdominal Pain. Denies: Dysuria. Musculoskeletal Denies: Back Pain, Upper Extremity Pain, Lower Extremity Pain. Skin Denies: Calf Pain, Leg Pain, Back Pain. Peripheral Venous/Lymphatics Denies Rash Neuro Denies: Headache, Dizziness, Numbness, Weakness. Psychiatric Denies: Depression. Physical Exam Vital Signs Vital Signs Vital Signs Verdana 4d Result Date Time Pulse Ox 100 11/16 1121 B/P 169/88 11/16 1121 Temp 37.1 11/16 1121 Pulse 62 11/16 1121 Resp 18 11/16 1121 Appearance Appearance Appears well, Awake, Alert, No distress Cm: 172.72 Wt-K.450 BMI 32 Patient is Obese Pain Scale 9 Neck Neck Normal inspection, Supple, Full range of motion HEENT HEENT Head atraumatic, Eyes normal inspection, Hearing grossly normal, No signs of dehydration Respiratory Respiratory Lungs sound clear, Respirations non-labored, Symmetrical expansion Lung Sounds by Lobe L LOWER LOBE Clear, L UPPER LOBE Clear, R LOWER LOBE Clear, R MIDDLE LOBE Clear, R UPPER LOBE Clear CVS Cardiovascular Rate WNL, Normal heart sounds Neuro * Document results of Cranial Nerve Asmt for all BH pts. Neurological Alert, Oriented x 3, No motor deficit, No sensory deficit Mental Status Oriented x 3 Speech/Language No: Dysarthric. Motor Exam L lower extrmty Normal power, L upper extrmty Normal power, R lower extrmty Normal power, R upper extrmty Normal power, L lower extrmty Normal tone, L upper extrmty Normal tone, R lower extrmty Normal tone, R upper extrmty Normal tone Sensory Exam L lower extrmty Normal light touch, L upper extrmty Normal light touch, R lower extrmty Normal light touch, R upper extrmty Normal light touch Abdomen/Pelvis Abdomen Abdomen soft, Non-tender Ext (more content not included)... Normal [facility] OPERATIVE REPORTon OPERATIVE REPORT This is a preliminar y report only. This report will be final only after practitioner review and authentication has occurred. NAME: SULY HUFFMAN MR#: [id number] SURGEON: Anil Singer MD DATE OF SURGERY: 11/16/2020 OPERATIVE REPORT PREOPERATIVE DIAGNOSIS: Lumbar stenosis. POSTOPERATIVE DIAGNOSIS: Lumbar stenosis. PROCEDURE: Bilateral L4-5 decompressive laminectomy/foraminoto my. PROCEDURE IN DETAIL: After anesthesia, the patient was placed prone on the spine frame. Care was taken to avoid injury to the eyes, axilla, and the median and ulnar nerves. The back was prepped and draped in usual fashion. The incision was planned using needles and C-arm. A longitudinal midline incision was made. Sharp dissection of subcutaneous tissues and fascia. The paraspinal muscles were elevated subperiosteally. A Octaviano was initially placed at the interlaminar space at L3-4 DICTATION ENDS HERE ANIL SINGER MD JFS/[facility]/[id number] E/S: Electronically Signed [facility] PT NAME: SULY HUFFMAN MR#: [id number] [address] [place] [address] ACCT: [id number] : 64 OPERATIVE REPORT Normal [facility] OPERATIVE REPORT NAME: SULY HUFFMAN MR#: [id number] SURGEON: Anil Singer MD DATE OF SURGERY: 11/16/2020 OPERATIVE REPORT PREOPERATIVE DIAGNOSIS: Lumbar stenosis. POSTOPERATIVE DIAGNOSIS: Lumbar stenosis. OPERATIVE PROCEDURE: Bilateral L4-5 decompressive subtotal laminectomy and foraminotomy. PROCEDURE IN DETAIL: After anesthesia, the patient was placed prone on a spine frame. Care was taken to avoid injury to the eyes, axilla, and the median and ulnar nerves. The back was prepped and draped in usual fashion. Incision was planned using a needle and C-arm. A longitudinal incision was made in the midline with sharp dissection of the subcutaneous tissues and fascia. Hemostasis was maintained with electrocautery. The paraspinal muscles were elevated subperiosteally. A Octaviano was placed at the L4-5 interspinous ligament and x-ray confirmed position and this was marked with a rongeur. The spine was then skeletonized in this area. The spinous process of L4 was removed with Kerrison rongeurs. The lamina and medial facets were thinned with a bur. A subtotal laminectomy was performed first on the right with Kerrison rongeurs and partial medial facetectomy was performed on the right with chisel and Kerrison rongeurs. The ligamentum was dissected free of the dura and removed with Kerrison rongeurs. There was a fair amount of loose bony fragments in the axilla on the right at L4-5. Foraminotomy was performed with straight and curved Kerrison rongeurs. The lateral recess was decompressed with straight and curved Kerrison rongeurs. After thorough decompression on the right, the epidural space was palpated with a Ruffin hook. The foramen was patent. The exiting L4 root well decompressed, the lateral recess was well decompressed, and traversing L5 root was well decompressed. Attention was turned to the left side where a subtotal laminectomy performed with Kerrison rongeurs. The medial facet was thinned with a bur and partial medial facetectomy was performed with chisel and Kerrison rongeurs. The ligamentum was dissected free from the dura and removed with Kerrison rongeurs. A foraminotomy was performed with straight and curved Kerrison rongeurs and the lateral recess was decompressed with straight and curved Kerrison rongeurs. After thorough decompression, the epidural space was palpated with a Ruffin hook. The foramen was patent. The exiting L4 root well decompressed, the lateral recess was well decompressed, and traversing L5 root was well decompressed. The wound was irrigated with saline and Betadine solution. Hemostasis was achieved with FloSeal. A silastic drain was left deep in the wound exiting through separate stab incision. The paraspinal muscles were injected with RECKs. The fascia, [facility] PT NAME: SULY HUFFMAN MR#: [id number] [address] [id number] ACCT: [id number] : 64 OPERATIVE REPORT subcutaneous tissues, and skin were closed in the usual manner. Dressings were applied. The patient was woken, taken to recovery room in excellent condition. There were no complications. ANIL SINGER MD JFS/[facility]/[id number] E/S: Anil Singer MD 12/10/20 0937 Electronically Signed [facility] PT NAME: SULY HUFFMAN MR#: [id number] [address] [place], [place] [id number] ACCT: [id number] : 64 OPERATIVE REPORT Normal [facility] Primary Residenton Primary Resident [facility] Pt Name: SULY HUFFMAN MR#: [id number] [address] [place] [address] ACCT: [id number] [address] [place] [id number] : 64 Service Date: 11/16/202024 Primary Resident/Call Primary Resident: 504Abilio Richardson After Hours Call: [phone] Red Team Electronically Signed eSign Date and Time Jean Claude Dalal [place] Resident 11/17/20 1151 Normal [facility] LUMBAR SPINE 2 OR 3 VIEWSon 11-15-2020 LUMBAR SPINE 2 OR 3 VIEWS STUDY: LUMBAR SPINE 2 OR 3 VIEWS; ; 11/16/2020 4:33 pm INDICATION: B/L L4-5 DECOMPRESSION LAMINECTOMY . COMPARISON: No imaging. ACCESSION NUMBER(S): [id number] ORDERING CLINICIAN: Anil Singer FINDINGS: Fluoroscopy time: 5 seconds. 2 intraoperative fluoroscopic still frame images of the lumbar spine were submitted. Images demonstrate localization at the L4-L5 interspace with probe/surgical component. IMPRESSION: Surgical localization at the L4-L5 interspace. Please see operative report regarding procedural details. Normal [facility] CORONAVIRUSon 11-13-2020 SARS-CoV-2 (COVID-19) RNA FERNY+probe Ql (Unsp spec) Methodology: PCR Negative results do not preclude SARS-CoV-2 infection and should not be used as the sole basis for patient management decisions. Negative results must be combined with clinical observations, patient history, and epidemiological information. False-negative results may occur if the viruses are present at a level that is below the analytical sensitivity of the assay or if the virus has genomic mutations, insertions, deletions, or rearrangements or if performed very early in the course of illness. Results may be affected by the quality of the sample collected. [employer] COVID-19 Direct is only for use under the Food and Drug Administration's Emergency Use Authorization. The [employer] COVID-19 Direct Letter of Authorization, along with the authorized Fact Sheet for Healthcare Providers, the authorized Fact Sheet for Patients, and authorized labeling are available on the FDA website: https://www.fda.gov/Me dicalDevices/Safety/ EmergencySituations/uc w739167.htm COVID-19 Negative for COVID-19 (SARS-CoV-2 RNA) Normal [facility] Comment on above: Order Comment: CBN: YESCampus: MAINCOVID Testing: PRE-OP/PROCEDURE SCREENComment: 3AGE at Spec VICENTE 59Report age at specimen VICENTE? YFirst test: UNKNOWNEmployed in Healthcare: NOSymptomatic as defined by CDC: NOHospitalized for COVID-19? NOICU: NOResident in a [facility] [place] [facility] Setting: NOOrder Date: 11/13/20: Not Performed By: #### M [id number] ####Test performed at: [place] [address] COMP META PANELon 11-07-2020 Albumin [Mass/Vol] 3.9 g/dL Normal 3.4-5.0 [facility] Comment on above: Performed By: #### L 500.66905, L500.52522 #### Test performed at: [address] [address] ALK PHOS TOTAL 61 U/L Normal 45-117 [facility] Comment on above: Performed By: #### L 500.11404, L500.84876 #### Test performed at: [address] [address] ALT [Catalytic activity/Vol] 131 U/L High 13-61 [facility] Comment on above: Performed By: #### L 500.50278, L500.30561 #### Test performed at: [address] [address] AST [Catalytic activity/Vol] 126 U/L High 15-37 [facility] Comment on above: Performed By: #### L 500.29927, L500.61295 #### Test performed at: [address] [address] BILI TOTAL 0.4 mg/dL Normal 0.2-1.0 [facility] Comment on above: Performed By: #### L 500.77549, L500.30826 #### Test performed at: [address] [address] Calcium [Mass/Vol] 9.1 mg/dL Normal 8.5-10.1 [facility] Comment on above: Performed By: #### L 500.80567, L500.13735 #### Test performed at: [address] [address] Chloride [Moles/Vol] 102 mmol/L Normal 98-107 [facility] Comment on above: Performed By: #### L 500.57881, L500.92438 #### Test performed at: [address] [address] CO2 [Moles/Vol] 28 mmol/L Normal 21-32 [facility] Comment on above: Performed By: #### L 500.47203, L500.20546 #### Test performed at: [address] [address] Creatinine [Mass/Vol] 0.755 mg/dL Normal 0.550-1.020 [facility] Comment on above: Performed By: #### L 500.64613, L500.24364 #### Test performed at: [address] [address] Glucose [Mass/Vol] 75 mg/dL Normal 70-99 [facility] Comment on above: Result Comment: Fast ing GLUCOSE reference range has been updated per (ADA) [place] [employer]'s recommendation. 06/08/2018 Performed By: #### L 500.74882, L500.28584 #### Test performed at: [address] [address] Potassium [Moles/Vol] 3.6 mmol/L Normal 3.5-5.1 [facility] Comment on above: Performed By: #### L 500.00187, L500.60615 #### Test performed at: [address] [address] Protein [Mass/Vol] 7.1 g/dL Normal 6.4-8.2 [facility] Comment on above: Performed By: #### L 500.18267, L500.07952 #### Test performed at: [address] [address] Sodium [Moles/Vol] 137 mmol/L Normal 136-145 [facility] Comment on above: Performed By: #### L 500.46743, L500.08692 #### Test performed at: [address] [address] Urea nitrogen [Mass/Vol] 18 mg/dL Normal 7-18 [facility] Comment on above: Performed By: #### L 500.10010, L500.50150 #### Test performed at: [place] [id number] GFR ESTIMATEon 11-07-2020 IF AMER > 60 Normal > 60 [facility] Comment on above: Result Comment: eGFR (Estimated GFR) Units of measure:mL/min/1.73 meters sq. *CALCULATION REVISED 01/02/2015;IDMS-traceable MDRD equation eGFR is derived from the reexpressed MDRD Study equation using the following parameters: serum creatinine, age, gender and race. An eGFR<60 mL/min/1.73m2 for >3 months is consistent with chronic kidney disease. Refer to KDOQI guidelines for clinical interpretation. Performed By: #### L 500.08964, L500.03025 #### Test performed at: [place] [address] IF non-AFR AMER > 60 Normal > 60 [facility] Comment on above: Performed By: #### L 500.63809, L500.62639 #### Test performed at: [address] [address] CBC W/DIFFon 11-06-2020 BASO ABS 0.1 K/uL Normal 0.0-0.2 [facility] Comment on above: Performed By: #### L 200.50690 #### Test performed at: [address] [address] Basophils/100 WBC (Bld) 0.9 % Normal [facility] Comment on above: Performed By: #### L 200.15733 #### Test performed at: [place] [id number] EOS ABS 0.2 K/uL Normal 0.0-0.5 [facility] Comment on above: Performed By: #### L 200.15248 #### Test performed at: [address] [address] Eosinophils/100 WBC (Bld) 2.0 % Normal [facility] Comment on above: Performed By: #### L 200.89978 #### Test performed at: [address] [address] IG % 0.3 % Normal [facility] Comment on above: Performed By: #### L 200.12153 #### Test performed at: [address] [address] IG ABS 0.03 K/uL Normal 0-0.05 [facility] Comment on above: Performed By: #### L 200.55346 #### Test performed at: [address] [address] Lymphocytes (Bld) [#/Vol] 3.3 10*3/uL Normal 1.2-3.5 [facility] Comment on above: Performed By: #### L 200.81503 #### Test performed at: [address] [address] Lymphocytes/100 WBC (Bld) 36.1 % Normal [facility] Comment on above: Performed By: #### L 200.49251 #### Test performed at: [address] [address] MONO ABS 0.7 K/uL Normal 0.0-1.0 [facility] Comment on above: Performed By: #### L 200.58771 #### Test performed at: [address] [address] Monocytes/100 WBC (Bld) 7.9 % Normal [facility] Comment on above: Performed By: #### L 200.46917 #### Test performed at: [address] [address] NEUTROPHIL ABS 4.8 K/uL Normal 1.4-6.6 [facility] Comment on above: Performed By: #### L 200.77673 #### Test performed at: [address] [address] Neutrophils/100 WBC (Bld) 52.8 % Normal [facility] Comment on above: Performed By: #### L 200.36240 #### Test performed at: [address] [address] Erythrocyte distribution width (RBC) [Ratio] 14.1 % Normal 11.5-14.5 [facility] Comment on above: Performed By: #### L 200.46198 #### Test performed at: [address] [address] Hematocrit (Bld) [Volume fraction] 45.7 % Normal 36.0-48.0 [facility] Comment on above: Performed By: #### L 200.37896 #### Test performed at: [address] [address] Hemoglobin (Bld) [Mass/Vol] 14.8 g/dL Normal 12.0-15.0 [facility] Comment on above: Performed By: #### L 200.21459 #### Test performed at: [address] [address] MCH (RBC) [Entitic mass] 30.3 pg Normal 25.4-34.6 [facility] Comment on above: Performed By: #### L 200.04401 #### Test performed at: [address] [address] MCHC (RBC) [Mass/Vol] 32.4 g/dL Normal 31.5-36.5 [facility] Comment on above: Performed By: #### L 200.51188 #### Test performed at: [address] [address] MCV (RBC) [Entitic vol] 93.5 fL Normal 79.0-98.0 [facility] Comment on above: Performed By: #### L 200.38524 #### Test performed at: [address] [address] NRBC # 0.000 K/uL Normal 0-0.012 [facility] Comment on above: Performed By: #### L 200.34730 #### Test performed at: [address] [address] NRBC % 0.0 /100 WBC Normal 0-0.2 [facility] Comment on above: Performed By: #### L 200.59581 #### Test performed at: [address] [address] Platelet mean volume (Bld) [Entitic vol] 10.3 fL Normal 8.7-12.4 [facility] Comment on above: Performed By: #### L 200.93621 #### Test performed at: [address] [address] Platelets (Bld) [#/Vol] 219 10*3/uL Normal 140-440 [facility] Comment on above: Performed By: #### L 200.23674 #### Test performed at: [address] [address] RBC (Bld) [#/Vol] 4.89 10*6/uL Normal 3.5-5.5 [facility] Comment on above: Performed By: #### L 200.66413 #### Test performed at: [address] [address] WBC (Bld) [#/Vol] 9.1 10*3/uL Normal 3.9-11.0 [facility] Comment on above: Performed By: #### L 200.97141 #### Test performed at: [facility] [address] [place], [place] [address] CHEST PA/AP & LATERALon 10-15 CHEST PA/AP & LATERAL STUDY: CHEST PA/AP LATERAL; 11/06/2020 12:57 pm INDICATION: SOB/PAT. COMPARISON: None. ACCESSION NUMBER(S): [id number] ORDERING CLINICIAN: Ricky Adame FINDINGS: The lungs are clear without pleural effusion. Mild cardiomegaly. Otherwise unremarkable mediastinum, pedro, and pulmonary vasculature. IMPRESSION: No active disease in the chest. Normal [facility] CONSULTATION REPORTon 2020 CONSULTATION REPORT NAME: SULY HUFFMAN MR#: [id number] WASHER ASSEMBLER: Ricky Adame MD DATE OF CONSULTATION: 11/06/2020 CONSULTATION HISTORY OF PRESENT ILLNESS: Ms. Huffman is a 59-year-old lady and I have been consulted by Dr. Anil Singer for preoperative clearance before undergoing L4- L5 decompressive laminectomy. She is in good functional capacity over 4 METS. She denies chest pain, shortness of breath, nausea, vomiting, diarrhea, constipation, blood in the stools or black stools. PAST HISTORY: Significant for hypertension, hyperlipidemia, and CHAPIS. MEDICATION LIST: Includes Metoprolol-XL 50 mg daily, simvastatin 20 mg daily, Lexapro 20 mg daily, and losartan 50 mg daily. PREVIOUS SURGICAL HISTORY: None. SOCIAL HISTORY: She denies smoking. No major use of alcohol or drugs. ALLERGIES: Augmentin, but that causes only diarrhea, it is not a true allergy. STOP-Bang score is 3. PHYSICAL EXAMINATION: VITAL SIGNS: She is 5 feet 8 inches tall, 226 pounds, 97, 126/70, 60, and 20. HEENT: Atraumatic head. Pupils are equal and reactive. Oral mucosa is normal. NECK: Supple. No thyromegaly. No carotid bruit. LUNGS: Clear. HEART: S1, S2 present. Regular rate and rhythm. ABDOMEN: Soft, nontender. Bowel sounds are present. She has pain in the L4- L5 area with some radiation to the leg. NEUROLOGIC: She is awake, alert, and oriented x3. Cranial nerves, motor, sensory, reflexes, cerebellum within normal limits. DIAGNOSTIC DATA: EKG shows sinus bradycardia. IMPRESSION: 1. Preop clearance for L4-L5 decompressive laminectomy. 2. Hypertension. 3. Hyperlipidemia. PLANS: EKG is within acceptable limits. I am going to do a CBC, a CMP, as well as a chest x-ray on her. Pending the labs, she is cleared for anesthesia with acceptable risk. [facility] PT NAME: SULY HUFFMAN MR#: [id number] [address] [place] [address] ACCT: [id number] : 64 CONSULTATION Thank you for the courtesy of this consultation. RICKY ADAME MD MS/MODL/[id number] E/S: Ricky Adame MD 11/06/20 1746 Electronically Signed [facility] PT NAME: SULY HUFFMAN MR#: [id number] [address] [place], [place] [id number] ACCT: [id number] : 64 CONSULTATION Normal [facility] OPERATIVE REPORTon OPERATIVE REPORT NAME: SULY HUFFMAN MR#: [id number] SURGEON: Anil Singer MD DATE OF SURGERY: 07/23/2020 OPERATIVE REPORT PREOPERATIVE DIAGNOSIS: Lumbar stenosis. POSTOPERATIVE DIAGNOSIS: Lumbar stenosis. OPERATIVE PROCEDURE: L4-5 translaminar epidural injection with 80 mg of Depo- Medrol. DETAILS OF PROCEDURE: The patient was placed prone on the x-ray table and MAC anesthesia was administered. The back was prepped and draped in the usual fashion. Local anesthesia was infiltrated with 1% plain Xylocaine. Under C- arm guidance, a 20-gauge Tuohy epidural needle was placed down to the interlaminar space at L4-5 to the ligamentum flavum. A glass syringe was affixed and insufflation performed as the needle was advanced to the ligamentum flavum. With loss of resistance, aspiration yielded no CSF. The epidural space was injected with 8 mL of 1% plain Xylocaine and 80 mg of Depo- Medrol. The needle was withdrawn. Dressing applied. The patient was awoken and taken to the recovery room in excellent condition. There were no complications. ANIL SINGER MD JFS/MODL/[id number] E/S: Anil Singer MD 08/09/20 1207 Electronically Signed [facility] PT NAME: SULY HUFFMAN MR#: [id number] [address] [place] [address] ACCT: [id number] : 64 OPERATIVE REPORT Normal [facility] CORONAVIRUSon 07-20-2020 SARS-CoV-2 (COVID-19) RNA FERNY+probe Ql (Unsp spec) Methodology: PCR Negative results do not preclude SARS-CoV-2 infection and should not be used as the sole basis for patient management decisions. Negative results must be combined with clinical observations, patient history, and epidemiological information. False-negative results may occur if the viruses are present at a level that is below the analytical sensitivity of the assay or if the virus has genomic mutations, insertions, deletions, or rearrangements or if performed very early in the course of illness. Results may be affected by the quality of the sample collected. Simplexa COVID-19 Direct is only for use under the Food and Drug Administration's Emergency Use Authorization. The Simplexa COVID-19 Direct Letter of Authorization, along with the authorized Fact Sheet for Healthcare Providers, the authorized Fact Sheet for Patients, and authorized labeling are available on the FDA website: https://www.fda.gov/Me dicalDevices/Safety/ EmergencySituations/uc r452584.htm COVID-19 Negative for COVID-19 (SARS-CoV-2 RNA) Normal [facility] Comment on above: Order Comment: CBN: YES [place]: MAIN COVID Testing: PRE-OP/PROCEDURE SCREEN Comment: 07/24 AGE at Spec VICENTE 59 Report age at specimen VICENTE? Y First test: UNKNOWN Employed in Healthcare: NO Symptomatic as defined by CDC: NO Hospitalized for COVID-19? NO ICU: NO Resident in a Congregated Care Setting: NO Order Date: 07/20/20 : Not Performed By: #### M 400.77440 #### Test performed at: [place] [address] MRI LUMBAR SP WO CONTRASTon 07-04-2020 MRI LUMBAR SP WO CONTRAST STUDY: MRI LUMBAR SP WO CONTRAST; 07/04/2020 10:30 am INDICATION: BACK PAIN. COMPARISON: None. ACCESSION NUMBER(S): [id number] ORDERING CLINICIAN: Anil Singer TECHNIQUE: Sagittal T1, T2, STIR, axial T1 and T2 weighted images of the lumbar spine were acquired. FINDINGS: There is partial sacralization of the L5 vertebral body. L5-S1: There are mild hypertrophic facet changes bilaterally. There is no significant central canal or neural foraminal stenosis. L4-5: There is grade 1 spondylolisthesis. There are moderate hypertrophic facet changes bilaterally. There is moderate central canal stenosis. The neural foramina are patent. L3-4: There is diffuse disc bulge which does not cause significant central canal or neural foraminal stenosis. L2-3: There is diffuse disc bulge which does not cause significant central canal or neural foraminal stenosis. L1-2: There is diffuse disc bulge without significant canal or foraminal stenosis. IMPRESSION: Partial sacralization of the L5 vertebral body Grade 1 spondylolisthesis at the L4-5 level Multifocal degenerative changes as described above Normal [facility] LUMB SP COMP W FLEX/EXT 6 VW Son 06-20-2020 LUMB SP COMP W FLEX/EXT 6 VWS STUDY: LUMB SP COMP W FLEX/EXT 6 VWS ; 06/20/2020 11:35 am INDICATION: PAIN. COMPARISON: None. ACCESSION NUMBER(S): [id number] ORDERING CLINICIAN: Anil Singer FINDINGS: Mild dextroscoliosis centered at L3-4. No acute fracture or subluxation of the lumbar spine. Moderate multilevel degenerative disc height loss most pronounced at L3-4. Scattered endplate osteophytes. Lower lumbar predominant facet arthropathy. No spondylolisthesis. No pars defects identified. No instability on flexion or extension. IMPRESSION: Degenerative changes and scoliosis of the lumbar spine without instability. Normal [facility] SACRUM/COCCYXon 06-20-2020 SACRUM/COCCYX STUDY: SACRUM/COCCYX; 06/20/2020 10:10 am INDICATION: PAIN. COMPARISON: None. ACCESSION NUMBER(S): [id number] ORDERING CLINICIAN: Anil Singer FINDINGS: Degenerative changes of the sacroiliac joints. No definite erosions. No definite acute fracture identified. IMPRESSION: Degenerative changes of the sacroiliac joints. Normal [facility] IR ANGIOGRAM CAROTID CEREBRA L BILATERALon 06-14-2019 IR ANGIOGRAM CAROTID CEREBRAL BILATERAL Date of procedure: 05/24/2019 1:50 PM Procedure: Diagnostic cerebral angiogram. Indication: Procedures: 1. Selective right common carotid artery angiogram 2. Selective right internal carotid artery cerebral angiogram 3. Selective right external carotid artery angiogram 4. Selective right vertebral artery cerebral angiogram 5. Selective left common carotid artery angiogram 6. Selective left internal carotid artery cerebral angiogram 7. Selective left external carotid artery angiogram 8. Selective left vertebral artery cerebral angiogram 9. Right common femoral artery angiogram 10. IV moderate sedation was supervised by Dr. Michael x 70 minutes. Neurointerventionalist : Jose Michael MD [place]: MD Nicolasa Beard MD Comparison: None Fluoroscopy time: 15.6 minutes Contrast: 112 cc Visipaque-270 Side of Access: Right femoral. Closure device: Vascade Sedation: Conscious sedation Patient arrived to the angio suite: 0851 Puncture obtained at: 0924 Vascular access removed at: 1027 Consent: After explaining the risks and benefits to the patient and the patient's family, including but not limited to stroke, coma, , vessel injury, dissection, tear, occlusion, and X-ray dye allergic type reaction, a signed consent form was obtained. Anesthesia: IV moderate sedation was supervised by Dr. Michael. The patient was independently monitored by a Registered Nurse assigned to the Department of Radiology?using automated blood pressure, EKG and pulse oximetry.? The detailed Conscious Record is permanently stored in the Hospital Information System. The following is the conscious sedation record including Start and End times: Fentanyl and Versed from 0920 to 1030 . Clinical History: 58 y.o.?female?with past medical history including hypertension, hyperlipidemia and depression. Patient presented to outside hospital after episodes of left body side numbness/tingling/weak ness. These episodes happened multiple times for 5 to 10 minutes duration. She had no headache, no nausea or vomiting. She was found to have right central sulcus subarachnoid hemorrhage. Undergoing angiogram for further evaluation. ? Description and findings: The patient's right groin was prepped and draped in standard sterile fashion and under local anesthesia with conscious sedation, the right common femoral artery was accessed with a single-wall needle technique, and a 5 Palauan intravascular sheath was placed within the right common femoral artery, establishing arterial access. A 5 Palauan multipurpose catheter was then advanced over a guide wire to the level of the aortic arch, and used to selectively catheterize the right common carotid artery. Right CCA technique: The right common carotid artery was selectively catheterized under fluoroscopic guidance and digital subtraction angiography images were obtained in biplane projections of the right cervical carotid artery. Interpretation: The right common carotid artery injection demonstrates normal antegrade flow into the external and internal carotid arteries with normal filling of the external carotid artery branches. Course and caliber of the cervical portion of the right internal carotid artery are unremarkable. Further inspection demonstrates no evidence of dissection, stenosis, aneurysm, or other vascular abnormality within the right CCA into the cervical segment of the right ICA. Right ICA technique: The right internal carotid artery was then selectively catheterized, and digital subtraction angiography of the intracranial right internal carotid circulation was performed in frontal, and lateral projections. Interpretation: There is normal antegrade filling of the distal internal carotid artery, ophthalmic artery, anterior cerebral artery, middle cerebral artery and the distal branches. Inspection of the remaining right internal carotid circulation revealed distended A3 and A4 for focal segmental narrowing. There is a right CARTON WAXING 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 noted. Otherwise no other evidence of cerebral aneurysm, arteriovenous malformation, or arterial stenosis. Capillary and venous phase images were also unremarkable, with no evidence of veno-occlusive disease. Right ECA technique: The catheter was then withdrawn into the right external carotid artery and digital subtraction angiography of the external carotid artery circulation was performed in biplane projections. Interpretation: There is normal antegrade opacification of the right external carotid artery and branches. There is no evidence of abnormal intracranial communication or early venous shunting. Right VA technique: The right vertebral artery was selectively catheterized under fluoroscopic guidance and digital subtraction angiography images were obtained in biplane projections of the vertebral artery intracranial runoff. Interpretation: The right vertebral artery demonstrates normal antegrade opacification of the high cervical segment of the right vertebral artery and basilar artery and respective branches. Retrograde contrast opacification of the contralateral left V4 segment was achieved and demonstrated no evidence of an aneurysm at the origin of the left PICA. 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 Further inspection demonstrates no evidence of dissection, stenosis, aneurysm, or other vascular abnormality. The capillary and venous phases are unremarkable with no evidence of veno-occlusive disease. Left CCA technique: The left common carotid artery was selectively catheterized under fluoroscopic guidance and digital subtraction angiography images were obtained in biplane projections of the left cervical common carotid artery. Interpretation: The left common carotid artery injection demonstrates normal antegrade flow into the external and internal carotid arteries with normal filling of the external carotid artery branches. Caliber and lumen contour of the cervical portion of the left internal carotid artery are unremarkable. Left ICA technique: The left internal carotid artery was then selectively catheterized, and digital subtraction angiography of the intracranial left internal carotid artery circulation was performed in frontal and lateral projections. Interpretation: There is normal antegrade filling of the distal internal carotid artery, ophthalmic artery, anterior cerebral artery, middle cerebral artery and distal branches. There is a left CARTON WAXING 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 noted. Inspection of the remaining left internal carotid artery circulation revealed no other evidence of cerebral aneurysm, arteriovenous malformation, or arterial stenosis. Capillary and venous phase images were also unremarkable, with no evidence of veno-occlusive disease. Left VA technique: The left subclavian artery was then selectively catheterized and the left vertebral artery was selectively catheterized with roadmap guidance. Digital subtraction angiography of the intracranial left vertebrobasilar run-off was obtained in frontal and lateral projections. Interpretation: The left vertebral artery injection demonstrates normal antegrade opacification of the left vertebral artery, including the cervical segment, basilar artery, and respective branches. There was no evidence of cerebral aneurysm, arteriovenous malformation, or arterial stenosis. Capillary and venous phase images were unremarkable. Right GAS FITTER technique: A right common femoral artery angiogram was performed and demonstrated arterial catheterization proximal to the bifurcation. There was no evidence of dissection or occlusion within the right common femoral artery. A 5F Vascade closure device was used to establish hemostasis at the right common femoral artery access site. No immediate complications were experienced. Patient was re-examined after the procedure with no change noted in their neurologic examination, with distal pulses present. The patient was subsequently discharged from the neurointerventional suite. Impression: 1. Right MCA and AMAIRANI distal branches mild to moderate focal segmental narrowing/vasospasm mostly in the right anterior circulation,?distal CARTON WAXING 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 branches with moderate focal segmental vasospasm.? 2. 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 Vasculitis cannot be ruled out. 3. Normal variants include bilateral desilverizer. Dr. Gayathri Maradiaga dictated this invasive procedure. Jose Michael MD was present for all procedural and imaging components of this case. Examination was reviewed and reported findings confirmed and edited by Jose Michael MD. Jose Michael MD supervised and interpreted this procedure. Final report electronically signed by Jose Michael M.D. on 06/14/2019 5:54 PM Interpreted by: MD Gayathri Ricketts MD Signed by: Jose Michael MD 06/14/19 Final result Normal [facility] CTA HEAD W CONTRASTon 2019 CTA HEAD W CONTRAST EXAMINATION: CTA OF THE HEAD WITH CONTRAST 06/10/2019 11:16 am TECHNIQUE: CTA of the head/brain was performed with the administration of intravenous contrast. Multiplanar reformatted images are provided for review. MIP images are provided for review. Dose modulation, iterative reconstruction, and/or weight based adjustment of the mA/kV was utilized to reduce the radiation dose to as low as reasonably achievable. 3D reconstructed images were performed on a separate workstation and provided for review. COMPARISON: CTA head 05/22/2019 HISTORY: ORDERING SYSTEM PROVIDED HISTORY: Subarachnoid hemorrhage (HCC) TECHNOLOGIST PROVIDED HISTORY: RCVS Reason for Exam: Subarachnoid hemorrhage - RCVS Acuity: Acute Type of Exam: Initial Additional signs and symptoms: Per patient - Minor stroke x2 weeks prior. Patient c/o Headaches on/off. Relevant Medical/Surgical History: No relevant surgical hx to area of interest. Hx - TIA and HBP. FINDINGS: ANTERIOR CIRCULATION: Scattered atherosclerotic calcification of the cavernous internal carotid arteries without focal stenosis. No focal stenosis of the anterior or middle cerebral arteries. No aneurysm. POSTERIOR CIRCULATION: No focal stenosis of the intracranial vertebral arteries. Intracranial dominance of the left vertebral artery. Right vertebral artery functionally terminates at the right PICA. Left PICA origin is visualized. Basilar artery is diffusely diminutive. Basilar artery is diffusely diminutive without focal stenosis. Bilateral P1 segments are hypoplastic, with type origin of the posterior cerebral arteries. No aneurysm. OTHER: No dural venous sinus thrombosis on this non-dedicated study. BRAIN: No mass effect or midline shift. No extra-axial fluid collection. The varner-white differentiation is maintained. IMPRESSION: No intracranial flow-limiting stenosis or aneurysm. Interpreted by: Dawna Meade MD Signed by: Dawna Meade MD 06/10/19 Final result Normal [facility] No intracranial flow-limiting stenosis or aneurysm. [facility], [place] EXAMINATION: CTA OF THE HEAD WITH CONTRAST 06/10/2019 11:16 am TECHNIQUE: CTA of the head/brain was performed with the administration of intravenous contrast. Multiplanar reformatted images are provided for review. MIP images are provided for review. Dose modulation, iterative reconstruction, and/or weight based adjustment of the mA/kV was utilized to reduce the radiation dose to as low as reasonably achievable. 3D reconstructed images were performed on a separate workstation and provided for review. COMPARISON: CTA head 05/22/2019 HISTORY: ORDERING SYSTEM PROVIDED HISTORY: Subarachnoid hemorrhage (HCC) TECHNOLOGIST PROVIDED HISTORY: RCVS Reason for Exam: Subarachnoid hemorrhage - RCVS Acuity: Acute Type of Exam: Initial Additional signs and symptoms: Per patient - Minor stroke x2 weeks prior. Patient c/o Headaches on/off. Relevant Medical/Surgical History: No relevant surgical hx to area of interest. Hx - TIA and HBP. FINDINGS: ANTERIOR CIRCULATION: Scattered atherosclerotic calcification of the cavernous internal carotid arteries without focal stenosis. No focal stenosis of the anterior or middle cerebral arteries. No aneurysm. POSTERIOR CIRCULATION: No focal stenosis of the intracranial vertebral arteries. Intracranial dominance of the left vertebral artery. Right vertebral artery functionally terminates at the right PICA. Left PICA origin is visualized. Basilar artery is diffusely diminutive. Basilar artery is diffusely diminutive without focal stenosis. Bilateral P1 segments are hypoplastic, with type origin of the posterior cerebral arteries. No aneurysm. OTHER: No dural venous sinus thrombosis on this non-dedicated study. BRAIN: No mass effect or midline shift. No extra-axial fluid collection. The varner-white differentiation is maintained. [place], [place] [employer], [employer] Incoming Radiant Results From [facility]Vidya/Sqoot - 06/10/2019 4:49 PM EDT EXAMINATION: CTA OF THE HEAD WITH CONTRAST 06/10/2019 11:16 am TECHNIQUE: CTA of the head/brain was performed with the administration of intravenous contrast. Multiplanar reformatted images are provided for review. MIP images are provided for review. Dose modulation, iterative reconstruction, and/or weight based adjustment of the mA/kV was utilized to reduce the radiation dose to as low as reasonably achievable. 3D reconstructed images were performed on a separate workstation and provided for review. COMPARISON: CTA head 05/22/2019 HISTORY: ORDERING SYSTEM PROVIDED HISTORY: Subarachnoid hemorrhage (HCC) TECHNOLOGIST PROVIDED HISTORY: RCVS Reason for Exam: Subarachnoid hemorrhage - RCVS Acuity: Acute Type of Exam: Initial Additional signs and symptoms: Per patient - Minor stroke x2 weeks prior. Patient c/o Headaches on/off. Relevant Medical/Surgical History: No relevant surgical hx to area of interest. Hx - TIA and HBP. FINDINGS: ANTERIOR CIRCULATION: Scattered atherosclerotic calcification of the cavernous internal carotid arteries without focal stenosis. No focal stenosis of the anterior or middle cerebral arteries. No aneurysm. POSTERIOR CIRCULATION: No focal stenosis of the intracranial vertebral arteries. Intracranial dominance of the left vertebral artery. Right vertebral artery functionally terminates at the right PICA. Left PICA origin is visualized. Basilar artery is diffusely diminutive. Basilar artery is diffusely diminutive without focal stenosis. Bilateral P1 segments are hypoplastic, with type origin of the posterior cerebral arteries. No aneurysm. OTHER: No dural venous sinus thrombosis on this non-dedicated study. BRAIN: No mass effect or midline shift. No extra-axial fluid collection. The varner-white differentiation is maintained. IMPRESSION: No intracranial flow-limiting stenosis or aneurysm. [facility] [place] XR CHEST (2 VW)on 06-10-2019 XR CHEST (2 VW) EXAMINATION: TWO XRAY VIEWS OF THE CHEST 06/10/2019 11:09 am COMPARISON: Chest 05/24/2019 HISTORY: ORDERING SYSTEM PROVIDED HISTORY: Vasculitis (HCC) TECHNOLOGIST PROVIDED HISTORY: Reason for Exam: vasculitis Acuity: Acute Type of Exam: Initial FINDINGS: The cardiomediastinal and hilar silhouettes appear unremarkable. Focal density partially obscures mid to lateral aspect of the left hemidiaphragm on frontal view. The right lung appears clear. No pleural effusion evident. No pneumothorax is seen. No acute osseous abnormality is identified. IMPRESSION: Focal subsegmental atelectasis or focal pneumonia mid to lateral lower left lung. Chest radiograph series appears otherwise unremarkable. Interpreted by: Uzair Jon MD Signed by: Uzair Jon MD 06/10/19 Final result Normal [facility] XR CHEST STANDARD (2 VW)on 0 06-10-2019 Focal subsegmental atelectasis or focal pneumonia mid to lateral lower left lung. Chest radiograph series appears otherwise unremarkable. [place] EXAMINATION: TWO XRA Y VIEWS OF THE CHEST 06/10/2019 11:09 am COMPARISON: Chest 05/24/2019 HISTORY: ORDERING SYSTEM PROVIDED HISTORY: Vasculitis ([facility]) TECHNOLOGIST PROVIDED HISTORY: Reason for Exam: vasculitis Acuity: Acute Type of Exam: Initial FINDINGS: The cardiomediastinal and hilar silhouettes appear unremarkable. Focal density partially obscures mid to lateral aspect of the left hemidiaphragm on frontal view. The right lung appears clear. No pleural effusion evident. No pneumothorax is seen. No acute osseous abnormality is identified. [place], M[facility] Incoming Radiant Results From [facility]idya/Sqoot - 06/10/2019 11:47 AM EDT EXAMINATION: TWO XRAY VIEWS OF THE CHEST 06/10/2019 11:09 am COMPARISON: Chest 05/24/2019 HISTORY: ORDERING SYSTEM PROVIDED HISTORY: Vasculitis ([facility]) TECHNOLOGIST PROVIDED HISTORY: Reason for Exam: vasculitis Acuity: Acute Type of Exam: Initial FINDINGS: The cardiomediastinal and hilar silhouettes appear unremarkable. Focal density partially obscures mid to lateral aspect of the left hemidiaphragm on frontal view. The right lung appears clear. No pleural effusion evident. No pneumothorax is seen. No acute osseous abnormality is identified. IMPRESSION: Focal subsegmental atelectasis or focal pneumonia mid to lateral lower left lung. Chest radiograph series appears otherwise unremarkable. [place] Cryoglobulinson 05-30-2019 Cryoglobulins 0 mg/dL Normal 0-10 [facility] Comment on above: Performed By: #### C DP, BMP, LIPR, MG, GLYHGB #### [facility] [employer] [address] [place] [address] Audio Visual Specialist: Zaki Humphries MD Basic Metabolic Profon 05-26 (cont.) Normal [facility] Comment on above: Result Comment: Aver age GFR for 50-59 years old: 93 mL/min/1.73sq m Chronic Kidney Disease: <60 mL/min/1.73sq m Kidney failure: <15 mL/min/1.73sq m eGFR calculated using average adult body mass. Additional eGFR calculator available at: http://www.FITiST/multiple_crcl_2011.htm Performed By: #### C DP, BMP, LIPR, MG, GLYHGB #### [address] [address] Audio Visual Specialist: Zaki Humphries MD Anion gap [Moles/Vol] 12 mmol/L Normal 9-17 [facility] Comment on above: Performed By: #### C DP, BMP, LIPR, MG, GLYHGB #### [facility] [employer] [address] [place] [address] Audio Visual Specialist: Zaki Humphries MD Calcium [Mass/Vol] 9.0 mg/dL Normal 8.6-10.4 [facility] Comment on above: Performed By: #### C DP, BMP, LIPR, MG, GLYHGB #### [facility] [employer] [address] [place] [address] Audio Visual Specialist: Zaki Humphries MD Chloride [Moles/Vol] 102 mmol/L Normal 98-107 [facility] Comment on above: Performed By: #### C DP, BMP, LIPR, MG, GLYHGB #### [facility] [employer] [address] [place] [address] Audio Visual Specialist: Zaki Humphries MD CO2 [Moles/Vol] 23 mmol/L Normal 20-31 [facility] Comment on above: Performed By: #### C DP, BMP, LIPR, MG, GLYHGB #### [address] [address] Audio Visual Specialist: Zaki Humphries MD Creatinine [Mass/Vol] 0.59 mg/dL Normal 0.50-0.90 [facility] Comment on above: Performed By: #### C DP, BMP, LIPR, MG, GLYHGB #### [address] [address] Audio Visual Specialist: Zaki Humphries MD GFR, Amer >60 Normal >60 [facility] Comment on above: Performed By: #### C DP, BMP, LIPR, MG, GLYHGB #### [address] [address] Audio Visual Specialist: Zaki Humphries MD GFR,non Amer >60 Normal >60 [facility] Comment on above: Performed By: #### C DP, BMP, LIPR, MG, GLYHGB #### [address] [address] Audio Visual Specialist: Zaki Humphries MD Glucose [Mass/Vol] 217 mg/dL High 70-99 [facility] Comment on above: Performed By: #### C DP, BMP, LIPR, MG, GLYHGB #### [facility] [employer] [address] [place] [address] Audio Visual Specialist: Zaki Humphries MD Potassium [Moles/Vol] 3.9 mmol/L Normal 3.7-5.3 [facility] Comment on above: Performed By: #### C DP, BMP, LIPR, MG, GLYHGB #### [facility] [employer] [address] [place] [address] Audio Visual Specialist: Zaki Humphries MD Sodium [Moles/Vol] 137 mmol/L Normal 135-144 [facility] Comment on above: Performed By: #### C DP, BMP, LIPR, MG, GLYHGB #### [facility] [address] [place] [address] Audio Visual Specialist: Zaki Humphries MD Urea nitrogen [Mass/Vol] 20 mg/dL Normal - [facility] Comment on above: Performed By: #### C DP, BMP, LIPR, MG, GLYHGB #### [facility] [address] [place], [place] [phone] Audio Visual Specialist: Zaki Humphries MD BUN/CRE Ratio NOT REPORTED Normal - [facility] Comment on above: Performed By: #### C DP, BMP, LIPR, MG, GLYHGB #### [facility] [employer] [address] [place] [address] [phone] Audio Visual Specialist: Zaki Humphries MD Staging: NOT REPORTED Normal [facility] Comment on above: Performed By: #### C DP, BMP, LIPR, MG, GLYHGB #### [facility] [employer] [address] [place] [address] [phone] Audio Visual Specialist: Zaki Humphries MD Basic metabolic panelon 05-14 Anion gap [Moles/Vol] 12 mmol/L 9 - 17 mmol/L [place] Bun/Cre Ratio NOT REPORTED [place], [place] Calcium [Mass/Vol] 9.0 mg/dL 8.6 - 10. 4 mg/dL [place] Chloride [Moles/Vol] 102 mmol/L 98 - 10 7 mmol/L [place] CO2 [Moles/Vol] 23 mmol/L 20 - 31 mmol/L [place] Creatinine [Mass/Vol] 0.59 mg/dL 0.5 - 0.9 mg/dL [place] GFR >60 >60 mL/min [place] GFR Non- >60 >60 mL/min [place] GFR/1.73 sq M predicted among non-blacks MDRD (S/P/Bld) [Vol rate/Area] [place] Comment on above: Average GFR for 50-5 9 years old: 93 mL/min/1.73sq m Chronic Kidney Disease: <60 mL/min/1.73sq m Kidney failure: <15 mL/min/1.73sq m eGFR calculated using average adult body mass. Additional eGFR calculator available at: http://www.FITiST/multiple_crcl_2012.htm GFR/1.73 sq M predicted among non-blacks MDRD (S/P/Bld) [Vol rate/Area] NOT REPORTED [place] Glucose [Mass/Vol] 217 mg/dL High 70 - 99 mg/dL [place], [place] Potassium [Moles/Vol] 3.9 mmol/L 3.7 - 5.3 mmol/L [place] Sodium [Moles/Vol] 137 mmol/L 135 - 144 mmol/L [place] Urea nitrogen [Mass/Vol] 20 mg/dL 6 - 20 mg/dL [place] CBCon 05-27-2019 Erythrocyte distribution width (RBC) [Ratio] 13.4 % Normal 11.8-14.4 [facility] Comment on above: Performed By: #### C DP, BMP, LIPR, MG, GLYHGB #### [facility] [employer] [address] [place] [address] Audio Visual Specialist: Zaki Humphries MD Hematocrit (Bld) [Volume fraction] 40.2 % Normal 36.3-47.1 [facility] Comment on above: Performed By: #### C DP, BMP, LIPR, MG, GLYHGB #### [facility] [employer] [address] [place] [address] Audio Visual Specialist: Zaki Humphries MD Hemoglobin (Bld) [Mass/Vol] 13.3 g/dL Normal 11.9-15.1 [facility] Comment on above: Performed By: #### C DP, BMP, LIPR, MG, GLYHGB #### [address] [address] Audio Visual Specialist: Zaki Humphries MD MCH (RBC) [Entitic mass] 30.0 pg Normal 25.2-33.5 [facility] Comment on above: Performed By: #### C DP, BMP, LIPR, MG, GLYHGB #### [address] [address] Audio Visual Specialist: Zaki Humphries MD MCHC (RBC) [Mass/Vol] 33.1 g/dL Normal 28.4-34.8 [facility] Comment on above: Performed By: #### C DP, BMP, LIPR, MG, GLYHGB #### [place] [address] Audio Visual Specialist: Zaki Humphries MD MCV (RBC) [Entitic vol] 90.7 fL Normal 82.6-102.9 [facility] Comment on above: Performed By: #### C DP, BMP, LIPR, MG, GLYHGB #### [address] [address] Audio Visual Specialist: Zaki Humphries MD NRBC Automated 0.0 per 100 WBC Normal 0.0 [facility] Comment on above: Performed By: #### C DP, BMP, LIPR, MG, GLYHGB #### [place] [address] Audio Visual Specialist: Zaki Humphries MD Platelet mean volume (Bld) [Entitic vol] 10.5 fL Normal 8.1-13.5 [facility] Comment on above: Performed By: #### C DP, BMP, LIPR, MG, GLYHGB #### [address] [address] Audio Visual Specialist: Zaki Humphries MD Platelets (Bld) [#/Vol] 254 10*3/uL Normal 138-453 [facility] Comment on above: Performed By: #### C DP, BMP, LIPR, MG, GLYHGB #### [facility] [place], [place] [phone] Audio Visual Specialist: Zaki Humphries MD RBC (Bld) [#/Vol] 4.43 10*6/uL Normal 3.95-5.11 [facility] Comment on above: Performed By: #### C DP, BMP, LIPR, MG, GLYHGB #### [facility] [employer] [facility] [place], [place] [phone] Audio Visual Specialist: Zaki Humphries MD WBC (Bld) [#/Vol] 14.2 10*3/uL High 3.5-11.3 [facility] Comment on above: Performed By: #### C DP, BMP, LIPR, MG, GLYHGB #### [facility] [place], [place] [phone] Audio Visual Specialist: Zaki Humphries MD Erythrocyte distribution width (RBC) [Ratio] 13.4 % 11.8 - 14.4 % [place] Hematocrit (Bld) [Volume fraction] 40.2 % 36.3 - 47.1 % [place] Hemoglobin (Bld) [Mass/Vol] 13.3 g/dL 11.9 - 15.1 g/dL [place] Interpretation and review of laboratory results Abnormal [place] MCH (RBC) [Entitic mass] 30.0 pg 25.2 - 33.5 pg [place] MCHC (RBC) [Mass/Vol] 33.1 g/dL 28.4 - 34.8 g/dL [place] MCV (RBC) [Entitic vol] 90.7 fL 82.6 - 102.9 fL [place] Platelet mean volume (Bld) [Entitic vol] 10.5 fL 8.1 - 13.5 fL [place] Platelets (Bld) [#/Vol] 254 10*3/uL [place] RBC (Bld) [#/Vol] 4.43 10*6/uL 3.95 - 5.1 1 m/uL [place] WBC (Bld) [#/Vol] 0.0 10*3/uL 0.0 per 10 0 WBC [place] WBC (Bld) [#/Vol] 14.2 10*3/uL High [place] CSF DIFFERENTIALon 0 Bands, CSF % [facility], [place] Baso, CSF % [facility], [place] Blasts, CSF % [place] Eosinophils, CSF % [facility] [place] Fluid Diff Comment [place] Lymphs, CSF 92 % [place] Comment on above: The reference range and other method performance specifications have not been established for this body fluid. The test result must be integrated into the clinical context for interpretation. Metamyelocyte, CSF % [facility], [place]/Macrophage, CSF % [facility], [place] Myelocyte, CSF % [facility] [place] Neutrophils, CSF 1 % [facility] [place] Comment on above: The reference range and other method performance specifications have not been established for this body fluid. The test result must be integrated into the clinical context for interpretation. Other Cells, Fluid MONOCYTES % [place] Comment on above: The reference range and other method performance specifications have not been established for this body fluid. The test result must be integrated into the clinical context for interpretation. CSF Differentialon 0 Other Cells MONOCYTES Normal [facility] Comment on above: Result Comment: The reference range and other method performance specifications have not been established for this body fluid. The test result must be integrated into the clinical context for interpretation. Performed By: #### C DP, BMP, LIPR, MG, GLYHGB #### [facility] [employer] [address] [place] [address] Audio Visual Specialist: Zaki Humphries MD HIV REFLEXon 05-27-2019 HIV Ag/Ab NONREACTIVE NONREACTIVE [place] Comment on above: No laboratory eviden ce of HIV infection. If acute HIV infection is suspected, consider testing for HIV-1 RNA. HIV Reflexon 05-27-2019 HIV Ag/Ab NONREACTIVE Normal NR [facility] Comment on above: Result Comment: No l aboratory evidence of HIV infection. If acute HIV infection is suspected, consider testing for HIV-1 RNA. Performed By: #### C DP, BMP, LIPR, MG, GLYHGB #### [facility] [employer] [address] [place], [place] [phone] Audio Visual Specialist: Zaki Humphries MD Magnesiumon 05-27-2019 Magnesium [Mass/Vol] 2.7 mg/dL High 1.6-2.6 [facility] Comment on above: Performed By: #### C DP, BMP, LIPR, MG, GLYHGB #### [facility] [employer] [facility] [place], [place] [phone] Audio Visual Specialist: Zaki Humphries MD Magnesium [Mass/Vol] 2.7 mg/dL High 1.6 - 2 .6 mg/dL [place] Otheron 05-27-2019 Interpretation and review of laboratory results Abnormal [place] POC Glucose Fingerstickon Glucose [Mass/Vol] 230 mg/dL High 65 - 105 mg/dL [place] Interpretation and review of laboratory results Abnormal [place] Glucose [Mass/Vol] 225 mg/dL High 65 - 105 mg/dL [place] Interpretation and review of laboratory results Abnormal [place] Glucose [Mass/Vol] 216 mg/dL High 65 - 105 mg/dL [place] Interpretation and review of laboratory results Abnormal [place] PROTEIN S FUNCTIONALon 05-26 Interpretation and review of laboratory results Abnormal [place] Protein [Mass/Vol] g/dL High 59 - 130 % [place] Comment on above: Patients on oral anticoagulants will have decreased functional protein C/S values. Oral anticoagulant therapy should be discontinued for two weeks for accurate measurement of functional protein C/S levels. Artifactually elevated levels of functional protein C/S may be seen in patients receiving heparin, while decreased functionality may be seen in patients with abnormally elevated levels of Factor VIII. Protein C Activityon 020 Protein [Mass/Vol] 121 % Normal >80 [facility] Comment on above: Result Comment: Patients on oral anticoagulants will have decreased functional protein C/S values. Oral anticoagulant therapy should be discontinued for two weeks for accurate measurement of functional protein C/S levels. Artifactually elevated levels of functional protein C/S may be seen in patients receiving heparin, while decreased functionality may be seen in patients with abnormally elevated levels of Factor VIII. Performed By: #### C DP, BMP, LIPR, MG, GLYHGB #### [email or web address] [address] [place] [address] Audio Visual Specialist: Zkai Humphries MD Protein C Functionalon 05-26 Protein [Mass/Vol] 121 % >80 [place] Comment on above: Patients on oral anticoagulants will have decreased functional protein C/S values. Oral anticoagulant therapy should be discontinued for two weeks for accurate measurement of functional protein C/S levels. Artifactually elevated levels of functional protein C/S may be seen in patients receiving heparin, while decreased functionality may be seen in patients with abnormally elevated levels of Factor VIII. Protein S Activityon 020 Protein [Mass/Vol] g/dL High 59-130 [facility] Comment on above: Result Comment: Patients on oral anticoagulants will have decreased functional protein C/S values. Oral anticoagulant therapy should be discontinued for two weeks for accurate measurement of functional protein C/S levels. Artifactually elevated levels of functional protein C/S may be seen in patients receiving heparin, while decreased functionality may be seen in patients with abnormally elevated levels of Factor VIII. Performed By: #### C DP, BMP, LIPR, MG, GLYHGB #### [email or web address] [address] [place] [address] Audio Visual Specialist: Zaki Humphries MD ANTI-NEUTROPHILIC CYTOPLASMI C ANTIBODYon 05-26-2019 ANCA Myeloperoxidase 8 AU/mL <100 [place] Comment on above: Reference Ranges (MPO and PR3): <100 AU/mL Negative 100-120 AU/mL Equivocal >120 AU/mL Positive Protein [Mass/Vol] 10 AU/mL <100 [place] Comment on above: Reference Ranges (MPO and PR3): <100 AU/mL Negative 100-120 AU/mL Equivocal >120 AU/mL Positive [facility] Anticardiolipin IgA 1.1 <12 [facility] [place] Comment on above: Reference Range: 12 - 15 Equivocal >15 Positive Anticardiolipin IgG 2.5 <20 GPU [place] Comment on above: Reference Range: 20.0 - 29.9 Low Positive 30.0 - 79.9 Moderate Positive >79.9 High Positive Cardiolipin Ab IgM 1.7 <20 MPU [place] Comment on above: Reference Range: 20.0 - 29.9 Low Positive 30.0 - 79.9 Moderate Positive >79.9 High Positive Anti-Phospholipid [facility] 05-25 Antiphospholipid IgA 1.1 APU Normal <12 [facility] Comment on above: Result Comment: Reference Range: 12 - 15 Equivocal >15 Positive Performed By: #### D AU #### [address] [address] Audio Visual Specialist: Zaki Humphries MD Antiphospholipid IgG 2.5 GPU Normal <20 [facility] Comment on above: Result Comment: Reference Range: 20.0 - 29.9 Low Positive 30.0 - 79.9 Moderate Positive >79.9 High Positive Performed By: #### D AU #### [facility] [address] [place] [address] Audio Visual Specialist: Zaki Humphries MD Antiphospholipid IgM 1.7 MPU Normal <20 [facility] Comment on above: Result Comment: Reference Range: 20.0 - 29.9 Low Positive 30.0 - 79.9 Moderate Positive >79.9 High Positive Performed By: #### D AU #### [address] [address] Audio Visual Specialist: Zaki Humphries MD Basic Metabolic Profon 05-25 (cont.) Normal [facility] Comment on above: Result Comment: Aver age GFR for 50-59 years old: 93 mL/min/1.73sq m Chronic Kidney Disease: <60 mL/min/1.73sq m Kidney failure: <15 mL/min/1.73sq m eGFR calculated using average adult body mass. Additional eGFR calculator available at: http://www.FITiST/multiple_crcl_2012.htm Performed By: #### C DP, BMP, LIPR, MG, GLYHGB #### [facility] [address] [place] [address] Audio Visual Specialist: Zaki Humphries MD Anion gap [Moles/Vol] 12 mmol/L Normal 9-17 [facility] Comment on above: Performed By: #### C DP, BMP, LIPR, MG, GLYHGB #### [address] [address] Audio Visual Specialist: Zaki Humphries MD Calcium [Mass/Vol] 9.2 mg/dL Normal 8.6-10.4 [facility] Comment on above: Performed By: #### C DP, BMP, LIPR, MG, GLYHGB #### [facility] [address] [place] [address] Audio Visual Specialist: Zaki Humphries MD Chloride [Moles/Vol] 103 mmol/L Normal 98-107 [facility] Comment on above: Performed By: #### C DP, BMP, LIPR, MG, GLYHGB #### [facility] [address] [place] [address] Audio Visual Specialist: Zaki Humphries MD CO2 [Moles/Vol] 21 mmol/L Normal 20-31 [facility] Comment on above: Performed By: #### C DP, BMP, LIPR, MG, GLYHGB #### [facility] [address] [place] [address]208 Audio Visual Specialist: Zaki Humphries MD Creatinine [Mass/Vol] 0.57 mg/dL Normal 0.50-0.90 [facility] Comment on above: Performed By: #### C DP, BMP, LIPR, MG, GLYHGB #### [facility] [address] [place] [address] Audio Visual Specialist: Zaki Humphries MD GFR, Amer >60 Normal >60 [facility] Comment on above: Performed By: #### C DP, BMP, LIPR, MG, GLYHGB #### [facility] [address] [place] [address] Audio Visual Specialist: Zaki Humphries MD GFR,non Amer >60 Normal >60 [facility] Comment on above: Performed By: #### C DP, BMP, LIPR, MG, GLYHGB #### [address] [address] Audio Visual Specialist: Zaki Humphries MD Glucose [Mass/Vol] 203 mg/dL High 70-99 [facility] Comment on above: Performed By: #### C DP, BMP, LIPR, MG, GLYHGB #### [address] [address] Audio Visual Specialist: Zaki Humphries MD Potassium [Moles/Vol] 3.9 mmol/L Normal 3.7-5.3 [facility] Comment on above: Performed By: #### C DP, BMP, LIPR, MG, GLYHGB #### [facility] [address] [place] [address]959 Audio Visual Specialist: Zaki Humphries MD Sodium [Moles/Vol] 136 mmol/L Normal 135-144 [facility] Comment on above: Performed By: #### C DP, BMP, LIPR, MG, GLYHGB #### [facility] [address] [place] [address] Audio Visual Specialist: Zaki Humphries MD Urea nitrogen [Mass/Vol] 17 mg/dL Normal 6-20 [facility] Comment on above: Performed By: #### C DP, BMP, LIPR, MG, GLYHGB #### [facility] [address] [place], [place] [phone] Audio Visual Specialist: Zaki Humphries MD BUN/CRE Ratio NOT REPORTED Normal 9-20 [facility] Comment on above: Performed By: #### C DP, BMP, LIPR, MG, GLYHGB #### [facility] [address] [place], [place] [phone] Audio Visual Specialist: Zaki Humphries MD Staging: NOT REPORTED Normal [facility] Comment on above: Performed By: #### C DP, BMP, LIPR, MG, GLYHGB #### [facility] [address] [place], [place] [phone] Audio Visual Specialist: Zaki Humphries MD Basic metabolic panelon 05-14 Anion gap [Moles/Vol] 12 mmol/L 9 - 17 mmol/L [place] Bun/Cre Ratio NOT REPORTED [place], [place] Calcium [Mass/Vol] 9.2 mg/dL 8.6 - 10. 4 mg/dL [place] Chloride [Moles/Vol] 103 mmol/L 98 - 10 7 mmol/L [place] CO2 [Moles/Vol] 21 mmol/L 20 - 31 mmol/L [place] Creatinine [Mass/Vol] 0.57 mg/dL 0.5 - 0.9 mg/dL [place] GFR >60 >60 mL/min [place] GFR Non- >60 >60 mL/min [place] GFR/1.73 sq M predicted among non-blacks MDRD (S/P/Bld) [Vol rate/Area] NOT REPORTED [place] GFR/1.73 sq M predicted among non-blacks MDRD (S/P/Bld) [Vol rate/Area] [place] Comment on above: Average GFR for 50-5 9 years old: 93 mL/min/1.73sq m Chronic Kidney Disease: <60 mL/min/1.73sq m Kidney failure: <15 mL/min/1.73sq m eGFR calculated using average adult body mass. Additional eGFR calculator available at: http://www.FITiST/multiple_crcl_2012.htm Glucose [Mass/Vol] 203 mg/dL High 70 - 99 mg/dL [place], [place] Interpretation and review of laboratory results Abnormal [place] Potassium [Moles/Vol] 3.9 mmol/L 3.7 - 5.3 mmol/L [place] Sodium [Moles/Vol] 136 mmol/L 135 - 144 mmol/L [place] Urea nitrogen [Mass/Vol] 17 mg/dL 6 - 20 mg/dL [place] CBCon 05-26-2019 Erythrocyte distribution width (RBC) [Ratio] 13.7 % Normal 11.8-14.4 [facility] Comment on above: Performed By: #### C DP, BMP, LIPR, MG, GLYHGB #### [facility] [address] [place] [address] [phone] Audio Visual Specialist: Zaki Humphries MD Hematocrit (Bld) [Volume fraction] 39.0 % Normal 36.3-47.1 [facility] Comment on above: Performed By: #### C DP, BMP, LIPR, MG, GLYHGB #### [facility] [address] [place] [address] [phone] Audio Visual Specialist: Zaki Humphries MD Hemoglobin (Bld) [Mass/Vol] 13.0 g/dL Normal 11.9-15.1 [facility] Comment on above: Performed By: #### C DP, BMP, LIPR, MG, GLYHGB #### [facility] [address] [place] [address] [phone] Audio Visual Specialist: Zaki Humphries MD MCH (RBC) [Entitic mass] 30.5 pg Normal 25.2-33.5 [facility] Comment on above: Performed By: #### C DP, BMP, LIPR, MG, GLYHGB #### [address] [address] Audio Visual Specialist: Zaki Humphries MD MCHC (RBC) [Mass/Vol] 33.3 g/dL Normal 28.4-34.8 [facility] Comment on above: Performed By: #### C DP, BMP, LIPR, MG, GLYHGB #### [address] [address] Audio Visual Specialist: Zaki Humphries MD MCV (RBC) [Entitic vol] 91.5 fL Normal 82.6-102.9 [facility] Comment on above: Performed By: #### C DP, BMP, LIPR, MG, GLYHGB #### [address] [address] Audio Visual Specialist: Zaki Humphries MD NRBC Automated 0.0 per 100 WBC Normal 0.0 [facility] Comment on above: Performed By: #### C DP, BMP, LIPR, MG, GLYHGB #### [address] [address] Audio Visual Specialist: Zaki Humphries MD Platelet mean volume (Bld) [Entitic vol] 9.9 fL Normal 8.1-13.5 [facility] Comment on above: Performed By: #### C DP, BMP, LIPR, MG, GLYHGB #### [address] [address] Audio Visual Specialist: Zaki Humphries MD Platelets (Bld) [#/Vol] 234 10*3/uL Normal 138-453 [facility] Comment on above: Performed By: #### C DP, BMP, LIPR, MG, GLYHGB #### [address] [address] Audio Visual Specialist: Zaki Humphries MD RBC (Bld) [#/Vol] 4.26 10*6/uL Normal 3.95-5.11 [facility] Comment on above: Performed By: #### C DP, BMP, LIPR, MG, GLYHGB #### [facility] [address] [place], [place] [phone] Audio Visual Specialist: Zaki Humphries MD WBC (Bld) [#/Vol] 18.3 10*3/uL High 3.5-11.3 [facility] Comment on above: Performed By: #### C DP, BMP, LIPR, MG, GLYHGB #### [facility] [address] [place], [place] [phone] Audio Visual Specialist: Zaki Humphries MD Erythrocyte distribution width (RBC) [Ratio] 13.7 % 11.8 - 14.4 % [place] Hematocrit (Bld) [Volume fraction] 39.0 % 36.3 - 47.1 % [place] Hemoglobin (Bld) [Mass/Vol] 13.0 g/dL 11.9 - 15.1 g/dL [place] Interpretation and review of laboratory results Abnormal [place] MCH (RBC) [Entitic mass] 30.5 pg 25.2 - 33.5 pg [place] MCHC (RBC) [Mass/Vol] 33.3 g/dL 28.4 - 34.8 g/dL [place] MCV (RBC) [Entitic vol] 91.5 fL 82.6 - 102.9 fL [place] Platelet mean volume (Bld) [Entitic vol] 9.9 fL 8.1 - 13.5 fL [place] Platelets (Bld) [#/Vol] 234 10*3/uL [place] RBC (Bld) [#/Vol] 4.26 10*6/uL 3.95 - 5.1 1 m/uL [place] WBC (Bld) [#/Vol] 18.3 10*3/uL High [place] WBC (Bld) [#/Vol] 0.0 10*3/uL 0.0 per 10 0 WBC [place] GLOMERULAR BASEMENT MEMBRANE (GBM) ANTIBODY IGGon 05-26-2019 GBM Ab, IgG 9 AU/mL <100 [place] Comment on above: GBM Reference Range: <100 AU/mL Negative 100-120 AU/mL Equivocal >120 AU/mL Positive Useful for evaluation of patients with rapid onset renal failure or pulmonary hemorrhage. 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 Cautions: A positive test for anti-GBM cannot be relied upon exclusively to establish the diagnosis of anti-GBM diseases. Renal or lung biopsy is often required to establish the diagnosis. Magnesiumon 05-26-2019 Magnesium [Mass/Vol] 2.6 mg/dL Normal 1.6-2.6 [facility] Comment on above: Performed By: #### C DP, BMP, LIPR, MG, GLYHGB #### [facility] [address] [place] [address] [phone] Audio Visual Specialist: Zaki Humphries MD Magnesium [Mass/Vol] 2.6 mg/dL 1.6 - 2 .6 mg/dL [place] Neutrophil Cytopl Abon 05-25 MPO-ANCA 8 AU/mL Normal <100 [facility] Comment on above: Result Comment: Reference Ranges (MPO and PR3): <100 AU/mL Negative 100-120 AU/mL Equivocal >120 AU/mL Positive Performed By: #### D AU #### [facility] [address] [place] [address] [phone] Audio Visual Specialist: Zaki Humphries MD PR3-ANCA 10 AU/mL Normal <100 [facility] Comment on above: Result Comment: Reference Ranges (MPO and PR3): <100 AU/mL Negative 100-120 AU/mL Equivocal >120 AU/mL Positive Performed By: #### D AU #### [facility] [address] [place] [address] [phone] Audio Visual Specialist: Zaki Humphries MD POC Glucose Fingerstickon Glucose [Mass/Vol] 278 mg/dL High 65 - 105 mg/dL [place] Interpretation and review of laboratory results Abnormal [place] Glucose [Mass/Vol] 227 mg/dL High 65 - 105 mg/dL [place] Interpretation and review of laboratory results Abnormal [place] Glucose [Mass/Vol] 179 mg/dL High 65 - 105 mg/dL [place] Interpretation and review of laboratory results Abnormal [place] Glucose [Mass/Vol] 186 mg/dL High 65 - 105 mg/dL [place] Interpretation and review of laboratory results Abnormal [place] AROLDO SCREEN WITH REFLEXon Nuclear Ab IF (S) [Titer] Negative NEGATIVE [place] Comment on above: This test was run on the [employer] Multi[employer]te AROLDO test system. The system provides ten test results (HEp-2NA, dsDNA, SSA, SSB, Sm, LEADERSHIP COACH, Scl-70, Sabine-1, Centromere and Histone analytes) from a single patient sample. A negative AROLDO screen indicates that the specimen was negative for all ten markers. AROLDO Screenon 05-25-2019 AROLDO Screen Negative Normal NEG [facility] Comment on above: Result Comment: This test was run on the [employer] AROLDO test system. The system provides ten test results (HEp-2NA, dsDNA, SSA, SSB, Sm, LEADERSHIP COACH, Scl-70, Sabine-1, Centromere and Histone analytes) from a single patient sample. A negative AROLDO screen indicates that the specimen was negative for all ten markers. Performed By: #### D AU #### [email or web address] [address] [place] [address] Audio Visual Specialist: Zaki Humphries MD Basic Metabolic Profon 05-24 (cont.) Normal [facility] Comment on above: Result Comment: Aver age GFR for 50-59 years old: 93 mL/min/1.73sq m Chronic Kidney Disease: <60 mL/min/1.73sq m Kidney failure: <15 mL/min/1.73sq m eGFR calculated using average adult body mass. Additional eGFR calculator available at: http://www.[employer].com/multiple_crcl_2012.htm Performed By: #### C DP, BMP, LIPR, MG, GLYHGB #### [address] [address] Audio Visual Specialist: Zaki Humphries MD Anion gap [Moles/Vol] 12 mmol/L Normal 9-17 [facility] Comment on above: Performed By: #### C DP, BMP, LIPR, MG, GLYHGB #### [address] [address] Audio Visual Specialist: Zaki Humphries MD Calcium [Mass/Vol] 8.9 mg/dL Normal 8.6-10.4 [facility] Comment on above: Performed By: #### C DP, BMP, LIPR, MG, GLYHGB #### [address] [address] Audio Visual Specialist: Zaki Humphries MD Chloride [Moles/Vol] 109 mmol/L High 98-107 [facility] Comment on above: Performed By: #### C DP, BMP, LIPR, MG, GLYHGB #### [facility] [address] [place] [address] Audio Visual Specialist: Zaki Humphries MD CO2 [Moles/Vol] 17 mmol/L Low 20-31 [facility] Comment on above: Performed By: #### C DP, BMP, LIPR, MG, GLYHGB #### [facility] [address] [place] [address] Audio Visual Specialist: Zaki Humphries MD Creatinine [Mass/Vol] 0.54 mg/dL Normal 0.50-0.90 [facility] Comment on above: Performed By: #### C DP, BMP, LIPR, MG, GLYHGB #### [facility] [address] [place] [address] Audio Visual Specialist: Zaki Humphries MD GFR, Amer >60 Normal >60 [facility] Comment on above: Performed By: #### C DP, BMP, LIPR, MG, GLYHGB #### [facility] [address] [place] [address] Audio Visual Specialist: Zaki Humphries MD GFR,non Amer >60 Normal >60 [facility] Comment on above: Performed By: #### C DP, BMP, LIPR, MG, GLYHGB #### [facility] [address] [place] [address] Audio Visual Specialist: Zaki Humphries MD Glucose [Mass/Vol] 183 mg/dL High 70-99 [facility] Comment on above: Performed By: #### C DP, BMP, LIPR, MG, GLYHGB #### [address] [address] Audio Visual Specialist: Zaki Humphries MD Potassium [Moles/Vol] 4.3 mmol/L Normal 3.7-5.3 [facility] Comment on above: Result Comment: SPEC IMEN SLIGHTLY HEMOLYZED, RESULTS MAY BE ADVERSELY AFFECTED. Performed By: #### C DP, BMP, LIPR, MG, GLYHGB #### [facility] [address] [place] [address] Audio Visual Specialist: Zaki Humphries MD Sodium [Moles/Vol] 138 mmol/L Normal 135-144 [facility] Comment on above: Performed By: #### C DP, BMP, LIPR, MG, GLYHGB #### [facility] [address] [place] [address] Audio Visual Specialist: Zaki Humphries MD Urea nitrogen [Mass/Vol] 17 mg/dL Normal 6-20 [facility] Comment on above: Performed By: #### C DP, BMP, LIPR, MG, GLYHGB #### [facility] [address] [place] [address] [phone] Audio Visual Specialist: Zaki Humphries MD BUN/CRE Ratio NOT REPORTED Normal - [facility] Comment on above: Performed By: #### C DP, BMP, LIPR, MG, GLYHGB #### [facility] [address] [place] [address] Audio Visual Specialist: Zaki Humphries MD Staging: NOT REPORTED Normal [facility] Comment on above: Performed By: #### C DP, BMP, LIPR, MG, GLYHGB #### [facility] [address] [place] [address] Audio Visual Specialist: Zaki Humphries MD Basic metabolic panelon 05-14 Anion gap [Moles/Vol] 12 mmol/L 9 - 17 mmol/L [place] Bun/Cre Ratio NOT REPORTED [place] Calcium [Mass/Vol] 8.9 mg/dL 8.6 - 10. 4 mg/dL [place] Chloride [Moles/Vol] 109 mmol/L High 98 - 10 7 mmol/L [place] CO2 [Moles/Vol] 17 mmol/L Low 20 - 31 mmol/L [place] Creatinine [Mass/Vol] 0.54 mg/dL 0.5 - 0.9 mg/dL [place] GFR >60 >60 mL/min [place] GFR Non- >60 >60 mL/min [place] GFR/1.73 sq M predicted among non-blacks MDRD (S/P/Bld) [Vol rate/Area] [place] Comment on above: Average GFR for 50-5 9 years old: 93 mL/min/1.73sq m Chronic Kidney Disease: <60 mL/min/1.73sq m Kidney failure: <15 mL/min/1.73sq m eGFR calculated using average adult body mass. Additional eGFR calculator available at: http://www.[employer]/multiple_crcl_2012.htm GFR/1.73 sq M predicted among non-blacks MDRD (S/P/Bld) [Vol rate/Area] NOT REPORTED [place] Glucose [Mass/Vol] 183 mg/dL High 70 - 99 mg/dL [place] Interpretation and review of laboratory results Abnormal [place] Potassium [Moles/Vol] 4.3 mmol/L 3.7 - 5.3 mmol/L [place] Comment on above: SPECIMEN SLIGHTLY HE MOLYZED, RESULTS MAY BE ADVERSELY AFFECTED. Sodium [Moles/Vol] 138 mmol/L 135 - 144 mmol/L [place] Urea nitrogen [Mass/Vol] 17 mg/dL 6 - 20 mg/dL [place] CBCon 05-25-2019 Erythrocyte distribution width (RBC) [Ratio] 13.2 % Normal 11.8-14.4 [facility] Comment on above: Performed By: #### C DP, BMP, LIPR, MG, GLYHGB #### [facility] [address] [place] [address] Audio Visual Specialist: Zaki Humphries MD Hematocrit (Bld) [Volume fraction] 42.5 % Normal 36.3-47.1 [facility] Comment on above: Performed By: #### C DP, BMP, LIPR, MG, GLYHGB #### [facility] [address] [place] [address] [phone] Audio Visual Specialist: Zaki Humphries MD Hemoglobin (Bld) [Mass/Vol] 13.7 g/dL Normal 11.9-15.1 [facility] Comment on above: Performed By: #### C DP, BMP, LIPR, MG, GLYHGB #### [facility] [address] [place] [address] Audio Visual Specialist: Zaki Humphries MD MCH (RBC) [Entitic mass] 29.8 pg Normal 25.2-33.5 [facility] Comment on above: Performed By: #### C DP, BMP, LIPR, MG, GLYHGB #### [facility] [address] [place] [address] Audio Visual Specialist: Zaki Humphries MD MCHC (RBC) [Mass/Vol] 32.2 g/dL Normal 28.4-34.8 [facility] Comment on above: Performed By: #### C DP, BMP, LIPR, MG, GLYHGB #### [address] [address] Audio Visual Specialist: Zaki Humphries MD MCV (RBC) [Entitic vol] 92.4 fL Normal 82.6-102.9 [facility] Comment on above: Performed By: #### C DP, BMP, LIPR, MG, GLYHGB #### [place] [address] Audio Visual Specialist: Zaki Humphries MD NRBC Automated 0.0 per 100 WBC Normal 0.0 [facility] Comment on above: Performed By: #### C DP, BMP, LIPR, MG, GLYHGB #### [address] [address] Audio Visual Specialist: Zaki Humphries MD Platelet mean volume (Bld) [Entitic vol] 10.1 fL Normal 8.1-13.5 [facility] Comment on above: Performed By: #### C DP, BMP, LIPR, MG, GLYHGB #### [place] [address] Audio Visual Specialist: Zaki Humphries MD Platelets (Bld) [#/Vol] 288 10*3/uL Normal 138-453 [facility] Comment on above: Performed By: #### C DP, BMP, LIPR, MG, GLYHGB #### [address] [address] Audio Visual Specialist: Zaki Humphries MD RBC (Bld) [#/Vol] 4.60 10*6/uL Normal 3.95-5.11 [facility] Comment on above: Performed By: #### C DP, BMP, LIPR, MG, GLYHGB #### [facility] [address], [place] [phone] Audio Visual Specialist: Zaki Humphries MD WBC (Bld) [#/Vol] 14.5 10*3/uL High 3.5-11.3 [facility] Comment on above: Performed By: #### C DP, BMP, LIPR, MG, GLYHGB #### [facility] [address] [place], [place] [phone] Audio Visual Specialist: Zaki Humphries MD Erythrocyte distribution width (RBC) [Ratio] 13.2 % 11.8 - 14.4 % [place] Hematocrit (Bld) [Volume fraction] 42.5 % 36.3 - 47.1 % [place] Hemoglobin (Bld) [Mass/Vol] 13.7 g/dL 11.9 - 15.1 g/dL [place] Interpretation and review of laboratory results Abnormal [place] MCH (RBC) [Entitic mass] 29.8 pg 25.2 - 33.5 pg [place] MCHC (RBC) [Mass/Vol] 32.2 g/dL 28.4 - 34.8 g/dL [place] MCV (RBC) [Entitic vol] 92.4 fL 82.6 - 102.9 fL [place] Platelet mean volume (Bld) [Entitic vol] 10.1 fL 8.1 - 13.5 fL [place] Platelets (Bld) [#/Vol] 288 10*3/uL [place] RBC (Bld) [#/Vol] 4.60 10*6/uL 3.95 - 5.1 1 m/uL [place] WBC (Bld) [#/Vol] 0.0 10*3/uL 0.0 per 10 0 WBC [place] WBC (Bld) [#/Vol] 14.5 10*3/uL High [place] CSF Cell Counton 05-25-2019 Appearance (U) SLIGHTLY BLOODY Normal [facility] Comment on above: Performed By: #### C DP, BMP, LIPR, MG, GLYHGB #### [address] [address] Audio Visual Specialist: Zaki Humphries MD RBC (Bld) [#/Vol] 87126 /mm3 High 0 [facility] Comment on above: Performed By: #### C DP, BMP, LIPR, MG, GLYHGB #### [facility] [address] [place] [address] Audio Visual Specialist: Zaki Humphries MD Tube Number 3 Normal [facility] Comment on above: Performed By: #### C DP, BMP, LIPR, MG, GLYHGB #### [address] [address] Audio Visual Specialist: Zaki Humphries MD WBC (Bld) [#/Vol] 92 /mm3 High <5 [facility] Comment on above: Performed By: #### C DP, BMP, LIPR, MG, GLYHGB #### [address] [address] Audio Visual Specialist: Zaki Humphries MD [employer] PRESENT Normal [facility] Comment on above: Performed By: #### C DP, BMP, LIPR, MG, GLYHGB #### [facility] [address] [place] [address] Audio Visual Specialist: Zaki Humphries MD Color (U) NOT REPORTED Normal [facility] Comment on above: Performed By: #### C DP, BMP, LIPR, MG, GLYHGB #### [facility] [address] [place] [address] Audio Visual Specialist: Zaki Humphries MD Volume 5 [facility] Comment on above: Performed By: #### C DP, BMP, LIPR, MG, GLYHGB #### [facility] Center[facility] [place] [address] Audio Visual Specialist: Zaki Humphries MD CSF Cell Count with Travis clark 05-25-2019 Appearance, CSF SLIGHTLY BLOODY [facility], [place] Interpretation and review of laboratory results Abnormal [facility], [place] RBC, CSF 69474 /mm3 High 0 [facility], [place] Supernatant Color, CSF NOT REPORTED [facility] [facility], [place] Tube Number, CSF 3 [facility] Volume, CSF 5 [facility], [place] WBC (Bld) [#/Vol] 92 /mm3 High <5 [facility] ealt- [place], [place] Xanthochromia PRESENT [facility]- [place], [place] CSF Differentialon 0 Lymphocytes/100 WBC (Bld) 92 % Normal [facility] Comment on above: Result Comment: The reference range and other method performance specifications have not been established for this body fluid. The test result must be integrated into the clinical context for interpretation. Performed By: #### C DP, BMP, LIPR, MG, GLYHGB #### [facility] [address] [place] [phone] Audio Visual Specialist: Zaki Humphries MD Neutrophils/100 WBC (Bld) 1 % Normal [facility] Comment on above: Result Comment: The reference range and other method performance specifications have not been established for this body fluid. The test result must be integrated into the clinical context for interpretation. Performed By: #### C DP, BMP, LIPR, MG, GLYHGB #### [facility] [address] [place] [address] Audio Visual Specialist: Zaki Humphries MD Bands NOT REPORTED Normal [facility] Comment on above: Performed By: #### C DP, BMP, LIPR, MG, GLYHGB #### [facility] [address] [place] [address] Audio Visual Specialist: Zaki Humphries MD Basophils/100 WBC (Bld) NOT REPORTED Normal [facility] Comment on above: Performed By: #### C DP, BMP, LIPR, MG, GLYHGB #### [facility] [address] [place] [address] Audio Visual Specialist: Zaki Humphries MD Blast NOT REPORTED Normal [facility] Comment on above: Performed By: #### C DP, BMP, LIPR, MG, GLYHGB #### [facility] [address] [place] [address] Audio Visual Specialist: Zaki Humphries MD Comment NOT REPORTED Normal [facility] Comment on above: Performed By: #### C DP, BMP, LIPR, MG, GLYHGB #### [address] [address] Audio Visual Specialist: Zaki Humphries MD Eosinophils (Bld) [#/Vol] NOT REPORTED Normal [facility] Comment on above: Performed By: #### C DP, BMP, LIPR, MG, GLYHGB #### [address] [address] Audio Visual Specialist: Zaki Humphries MD Metamyelocytes/100 WBC (Bld) NOT REPORTED Normal [facility] Comment on above: Performed By: #### C DP, BMP, LIPR, MG, GLYHGB #### [address] [address] Audio Visual Specialist: Zaki Humphries MD [place]/Macrophage NOT REPORTED Normal [facility] Comment on above: Performed By: #### C DP, BMP, LIPR, MG, GLYHGB #### [facility] [employer] [address] [place] [address] Audio Visual Specialist: Zaki Humphries MD Myelocyte NOT REPORTED Normal [facility] Comment on above: Performed By: #### C DP, BMP, LIPR, MG, GLYHGB #### [facility] [employer] [address] [place] [address] Audio Visual Specialist: Zaki Humphries MD Echo Completeon 05-25-2019 Juancarlos, pn Incoming Cardio Results From [facility]/Ge - 05/25/2019 6:26 PM EDT Transthoracic Echocardiography Report (TTE) Patient Name NATHANAEL Date of Study 05/25/2019 SULY Farmer Date of 1960 Gender Female Age 58 year(s) Race Room Number 0523 Height: 68 inch, 172.72 cm Corporate ID [id number] Weight: 210 pounds, 95.3 kg # Patient Acct [id number] BSA: 2.09 m^2 BMI: 31.93 # kg/m^2 MR # [id number] [employer] Renetta Eng Interpreting Physician Tommy Campuzano Fellow Referring Nurse Practitioner Interpreting Referring Physician Bettie Horn DO Fellow Type of Study TTE procedure:2D Echocardiogram, M-Mode, Doppler, Color Doppler, Bubble Study. Procedure Date Date: 05/25/2019 Start: 04:30 PM Study Location: [facility] Technical Quality: Fair visualization History / Tech. Comments: Procedure explained to patient. Study done bedside in Neuro ICU. TIA, Subarachnoid hemorrhage Patient Status: Inpatient Height: 68 inches Weight: 210 pounds BSA: 2.09 m^2 BMI: 31.93 kg/m^2 CONCLUSIONS Summary Left ventricle is normal in size. Global left ventricular systolic function is normal. Estimated ejection fraction is 55 % . Normal left ventricular wall thickness. Negative bubble study, no shunt noted via injection of agitated saline. Trivial mitral regurgitation, pulmonic insufficiency. Signature --------- - --------- - --------- - --------- - FINDINGS Left Atrium Left atrium is normal in size. Inter-atrial septum appears so be intact. No shunt seen by color Doppler. Negative bubble study, no shunt noted via injection of agitated saline. Left Ventricle Left ventricle is normal in size. Global left ventricular systolic function is normal. Estimated ejection fraction is 55 % . Normal left ventricular wall thickness. No obvious wall motion abnormality seen. Right Atrium Right atrium is normal size . Right Ventricle Normal right ventricle size and function. Mitral Valve Normal mitral valve structure. Trivial mitral regurgitation. No mitral stenosis. Aortic Valve Aortic valve structure and function normal. Aortic valve is trileaflet. No aortic insufficiency. No aortic stenosis. Tricuspid Valve Normal tricuspid valve leaflets. No tricuspid regurgitation. No tricuspid stenosis. Insignificant tricuspid regurgitation, unable to estimate RVSP. Pulmonic Valve Pulmonic valve is normal in structure and function. Trivial pulmonic insufficiency. No evidence of pulmonic stenosis. Pericardial Effusion No pericardial effusion. Miscellaneous Normal aortic root dimension. The ascending aorta is normal in size. E/E' average = 9.45. IVC normal diameter & inspiratory collapse indicating normal RA filling pressure . M-mode / 2D Measurements & Calculations: LVIDd:4.9 cm(3.7 - 5.6 cm) Diastolic Volume:113 ml LVIDs:3 cm(2.2 - 4.0 cm) Aortic Root:2.6 cm(2.0 - 3.7 cm) IVSd:1.1 cm(0.6 - 1.1 cm) LA Dimension: 4.1 cm(1.9 - 4.0 cm) LVPWd:1.1 cm(0.6 - 1.1 cm) LA volume/Index: 40.87 ml /20m^2 Fractional Shortenin.78 % LVOT:2.1 cm Estimated LVEF (%): 55 % RVDd:3.7 cm Mitral: Aortic Valve Area (P1/2-Time): 2.1 cm^2 Peak Velocity: 1.92 m/s Peak E-Wave: 0.84 m/s Mean Velocity: 1.26 m/s Peak A-Wave: 0.76 m/s Peak Gradient: 14.75 mmHg E/A Ratio: 1.11 Mean Gradient: 8 mmHg Peak Gradient: 2.85 mmHg Mean Gradient: 2 mmHg Deceleration Time: 349 msec Area (continuity): 2.8 cm^2 P1/2t: 105 msec AV VTI: 44.3 cm Area (continuity): 2.93 cm^2 Mean Velocity: 0.70 m/s Pulmonic: Peak Velocity: 1.22 m/s Peak Gradient: 5.95 mmHg Diastology / Tissue Doppler Septal Wall E' velocity:0.07 m/s Septal Wall E/E':11.6 Lateral Wall E' velocity:0.12 m/s Lateral Wall E/E':7.3 [place], [place] Transthoracic Echocardiography Report (TTE) Patient Name NATHANAEL Date of Study 05/25/2019 SULY Farmer Date of 1960 Gender Female Age 58 year(s) Race Room Number 0523 Height: 68 inch, 172.72 cm Corporate ID [id number] Weight: 210 pounds, 95.3 kg # Patient Acct [id number] BSA: 2.09 m^2 BMI: 31.93 # kg/m^2 MR # [id number] [employer] Gloria Engfany Interpreting Physician Tommy Campuzano Fellow Referring Nurse Practitioner Interpreting Referring Physician Bettie Horn DO Fellow Type of Study TTE procedure:2D Echocardiogram, M-Mode, Doppler, Color Doppler, Bubble Study. Procedure Date Date: 05/25/2019 Start: 04:30 PM Study Location: [facility] Technical Quality: Fair visualization History / Tech. Comments: Procedure explained to patient. Study done bedside in Neuro ICU. TIA, Subarachnoid hemorrhage Patient Status: Inpatient Height: 68 inches Weight: 210 pounds BSA: 2.09 m^2 BMI: 31.93 kg/m^2 CONCLUSIONS Summary Left ventricle is normal in size. Global left ventricular systolic function is normal. Estimated ejection fraction is 55 % . Normal left ventricular wall thickness. Negative bubble study, no shunt noted via injection of agitated saline. Trivial mitral regurgitation, pulmonic insufficiency. Signature FINDINGS Left Atrium Left atrium is normal in size. Inter-atrial septum appears so be intact. No shunt seen by color Doppler. Negative bubble study, no shunt noted via injection of agitated saline. Left Ventricle Left ventricle is normal in size. Global left ventricular systolic function is normal. Estimated ejection fraction is 55 % . Normal left ventricular wall thickness. No obvious wall motion abnormality seen. Right Atrium Right atrium is normal size . Right Ventricle Normal right ventricle size and function. Mitral Valve Normal mitral valve structure. Trivial mitral regurgitation. No mitral stenosis. Aortic Valve Aortic valve structure and function normal. Aortic valve is trileaflet. No aortic insufficiency. No aortic stenosis. Tricuspid Valve Normal tricuspid valve leaflets. No tricuspid regurgitation. No tricuspid stenosis. Insignificant tricuspid regurgitation, unable to estimate RVSP. Pulmonic Valve Pulmonic valve is normal in structure and function. Trivial pulmonic insufficiency. No evidence of pulmonic stenosis. Pericardial Effusion No pericardial effusion. Miscellaneous Normal aortic root dimension. The ascending aorta is normal in size. E/E' average = 9.45. IVC normal diameter & inspiratory collapse indicating normal RA filling pressure . M-mode / 2D Measurements & Calculations: LVIDd:4.9 cm(3.7 - 5.6 cm) Diastolic Volume:113 ml LVIDs:3 cm(2.2 - 4.0 cm) Aortic Root:2.6 cm(2.0 - 3.7 cm) IVSd:1.1 cm(0.6 - 1.1 cm) LA Dimension: 4.1 cm(1.9 - 4.0 cm) LVPWd:1.1 cm(0.6 - 1.1 cm) LA volume/Index: 40.87 ml /20m^2 Fractional Shortenin.78 % LVOT:2.1 cm Estimated LVEF (%): 55 % RVDd:3.7 cm Mitral: Aortic Valve Area (P1/2-Time): 2.1 cm^2 Peak Velocity: 1.92 m/s Peak E-Wave: 0.84 m/s Mean Velocity: 1.26 m/s Peak A-Wave: 0.76 m/s Peak Gradient: 14.75 mmHg E/A Ratio: 1.11 Mean Gradient: 8 mmHg Peak Gradient: 2.85 mmHg Mean Gradient: 2 mmHg Deceleration Time: 349 msec Area (continuity): 2.8 cm^2 P1/2t: 105 msec AV VTI: 44.3 cm Area (continuity): 2.93 cm^2 Mean Velocity: 0.70 m/s Pulmonic: Peak Velocity: 1.22 m/s Peak Gradient: 5.95 mmHg Diastology / Tissue Doppler Septal Wall E' velocity:0.07 m/s Septal Wall E/E':11.6 Lateral Wall E' velocity:0.12 m/s Lateral Wall E/E':7.3 [place], [place] Glucose, CSFon 05-25-2019 Glucose, CSF 97 mg/dL High 40 - 70 mg/dL [place], [place] Glucose,CSFon 05-25-2019 Glucose [Mass/Vol] 97 mg/dL High 40-70 [facility] Comment on above: Performed By: #### C DP, BMP, LIPR, MG, GLYHGB #### [facility] [employer] [address] [place] [address] [phone] Audio Visual Specialist: Zaki Humphries MD Gram Stainon 05-25-2019 Microscopic observation Gram stain Nom (Unsp spec) Specimen Description .CSF Special Requests NOT REPORTED Direct Exam FEW MONONUCLEAR WHITE BLOOD CELLS SEEN NO BACTERIA SEEN Gram stain made from cytocentrifuged specimen. Organisms and cells will be concentrated. Report Status FINAL 05/25/2019 Normal [facility] Comment on above: Performed By: #### C DP, BMP, LIPR, MG, GLYHGB #### [facility] [employer] [address] [place] [phone] Audio Visual Specialist: Zaki Humphries MD Direct Exam Gram stain made from cytocentrifuged specimen. Organisms and cells will be concentrated. [place], [place] Direct Exam NO BACTERIA SEEN [place], [place] Direct Exam FEW MONONUCLEAR WHIT E BLOOD CELLS SEEN Abnormal [place], [place] Interpretation and review of laboratory results Abnormal [place] Special Requests NOT REPORTED [place] Specimen Description .CSF [place], [place] IR LUMBAR PUNCTURE FOR DIAGN OSISon 05-25-2019 IR LUMBAR PUNCTURE FOR DIAGNOSIS EXAMINATION: FLUOROSCOPIC GUIDED LUMBAR PUNCTURE 05/25/2019 12:01 pm HISTORY: ORDERING SYSTEM PROVIDED HISTORY: vasculitis TECHNOLOGIST PROVIDED HISTORY: vasculitis Subarachnoid hemorrhage, workup for subarachnoid hemorrhage FLUOROSCOPY DOSE AND TYPE OR TIME AND EXPOSURES: DAP 134 cGy cm squared PROCEDURE: HEALTH TECHNICIAN HEARING: Geraldine Husain MD Informed consent was obtained after the risks and benefits of the procedure were discussed with the patient and all questions were answered fully. [place] protocol was observed and a standard timeout was performed. The patient was positioned prone and the back was prepped and draped in the normal sterile fashion. 1% lidocaine was used for local anesthesia. The subarachnoid space was accessed with a 20-gauge 3.5 spinal needle at the L2/L3 level. Free flow of clear CSF was noted. Approximately 8 ml of light pink CSF was removed and sent for analysis. The stylet was reinserted, spinal needle was removed and brief pressure was applied at the puncture site. There were no immediate complications and the patient tolerated the procedure well. IMPRESSION: Successful fluoroscopic-guided lumbar puncture. Interpreted by: Geraldine Husain MD Signed by: Geraldine Husain MD 05/25/19 Final result Normal [facility] Successful fluoroscopic-guided lumbar puncture. [facility] [place] Juancarlos, Mhpn Incoming Radiant Results From [facility] - 05/25/2019 2:58 PM EDT EXAMINATION: FLUOROSCOPIC GUIDED LUMBAR PUNCTURE 05/25/2019 12:01 pm HISTORY: ORDERING SYSTEM PROVIDED HISTORY: vasculitis TECHNOLOGIST PROVIDED HISTORY: vasculitis Subarachnoid hemorrhage, workup for subarachnoid hemorrhage FLUOROSCOPY DOSE AND TYPE OR TIME AND EXPOSURES: DAP 134 cGy cm squared PROCEDURE: HEALTH TECHNICIAN HEARING: Geraldine Husain MD Informed consent was obtained after the risks and benefits of the procedure were discussed with the patient and all questions were answered fully. [place] protocol was observed and a standard timeout was performed. The patient was positioned prone and the back was prepped and draped in the normal sterile fashion. 1% lidocaine was used for local anesthesia. The subarachnoid space was accessed with a 20-gauge 3.5 spinal needle at the L2/L3 level. Free flow of clear CSF was noted. Approximately 8 ml of light pink CSF was removed and sent for analysis. The stylet was reinserted, spinal needle was removed and brief pressure was applied at the puncture site. There were no immediate complications and the patient tolerated the procedure well. IMPRESSION: Successful fluoroscopic-guided lumbar puncture. [facility] [place] EXAMINATION: FLUOROSCOPIC GUIDED LUMBAR PUNCTURE 05/25/2019 12:01 pm HISTORY: ORDERING SYSTEM PROVIDED HISTORY: vasculitis TECHNOLOGIST PROVIDED HISTORY: vasculitis Subarachnoid hemorrhage, workup for subarachnoid hemorrhage FLUOROSCOPY DOSE AND TYPE OR TIME AND EXPOSURES: DAP 134 cGy cm squared PROCEDURE: HEALTH TECHNICIAN HEARING: Geraldine Husain MD Informed consent was obtained after the risks and benefits of the procedure were discussed with the patient and all questions were answered fully. [place] protocol was observed and a standard timeout was performed. The patient was positioned prone and the back was prepped and draped in the normal sterile fashion. 1% lidocaine was used for local anesthesia. The subarachnoid space was accessed with a 20-gauge 3.5 spinal needle at the L2/L3 level. Free flow of clear CSF was noted. Approximately 8 ml of light pink CSF was removed and sent for analysis. The stylet was reinserted, spinal needle was removed and brief pressure was applied at the puncture site. There were no immediate complications and the patient tolerated the procedure well. [place] Magnesiumon 05-25-2019 Magnesium [Mass/Vol] 2.4 mg/dL Normal 1.6-2.6 [facility] Comment on above: Performed By: #### C DP, BMP, LIPR, MG, GLYHGB #### [facility] [address] [place] [address] Audio Visual Specialist: Zaki Humphries MD Magnesium [Mass/Vol] 2.4 mg/dL 1.6 - 2 .6 mg/dL [place], [place] Otheron 05-25-2019 Interpretation and review of laboratory results Abnormal [place], [place] POC Glucose Fingerstickon Glucose [Mass/Vol] 218 mg/dL High 65 - 105 mg/dL [place], [place] Interpretation and review of laboratory results Abnormal [place] Glucose [Mass/Vol] 242 mg/dL High 65 - 105 mg/dL [place], [place] Interpretation and review of laboratory results Abnormal [place], [place] Glucose [Mass/Vol] 165 mg/dL High 65 - 105 mg/dL [place], [place] Interpretation and review of laboratory results Abnormal [place] Protein, CSFon 05-25-2019 Protein, CSF 69.2 mg/dL High 15 - 45 mg/dL [place], [place] Protein, Total, CSFon 2019 Total Protein - CSF 69.2 mg/dL High 15.0-45.0 [facility] Comment on above: Performed By: #### C DP, BMP, LIPR, MG, GLYHGB #### [facility] Center[facility] [address] [place] [address] Audio Visual Specialist: Zaki Humphries MD RA Screenon 05-25-2019 RA Screen 123.0 IU/mL High <14 [facility] Comment on above: Performed By: #### D AU #### [id number] [place] [address] Audio Visual Specialist: Zaki Humphries MD RHEUMATOID FACTORon 05-25-19 20 Interpretation and review of laboratory results Abnormal [place], [place] Rheumatoid Factor 123 High <14 IU/mL [place], [place] Basic Metabolic Profon 05-23 (cont.) Normal [facility] Comment on above: Result Comment: Aver age GFR for 50-59 years old: 93 mL/min/1.73sq m Chronic Kidney Disease: <60 mL/min/1.73sq m Kidney failure: <15 mL/min/1.73sq m eGFR calculated using average adult body mass. Additional eGFR calculator available at: http://www.[employer]/multiple_crcl_2012.htm Performed By: #### C BC, BMP, MG ####[facility] CenterTinkoff Digital [address] [place] [address] Lab Director: Zaki Humphries MD Anion gap [Moles/Vol] 12 mmol/L Normal 9-17 [facility] Comment on above: Performed By: #### C BC, BMP, MG ####[facility] CenterT[facility] Digital [address] [place] [address] Lab Director: Zaki Humphries MD Calcium [Mass/Vol] 9.2 mg/dL Normal 8.6-10.4 [facility] Comment on above: Performed By: #### C BC, BMP, MG ####[facility] [address] [place] [address] Lab Director: Zaki Humphries MD Chloride [Moles/Vol] 104 mmol/L Normal 98-107 [facility] Comment on above: Performed By: #### C BC, BMP, MG ####[facility] [address] [place], [place] [phone] Director: Zaki Humphries MD CO2 [Moles/Vol] 21 mmol/L Normal 20-31 [facility] Comment on above: Performed By: #### C BC, BMP, MG ####[facility] [address] [place], [place] [phone] Director: Zaki Humphries MD Creatinine [Mass/Vol] 0.65 mg/dL Normal 0.50-0.90 [facility] Comment on above: Performed By: #### C BC, BMP, MG ####[facility] [address] [place], [place] [phone] Director: Zaki Humphries MD GFR, Amer >60 Normal >60 [facility] Comment on above: Performed By: #### C BC, BMP, MG ####[facility] [address] [place] [address] Lab Director: Zaki Humphries MD GFR,non Amer >60 Normal >60 [facility] Comment on above: Performed By: #### C BC, BMP, MG ####[facility] [address] [place] [address] Lab Director: Zaki Humphries MD Glucose [Mass/Vol] 102 mg/dL High 70-99 [facility] Comment on above: Performed By: #### C BC, BMP, MG ####[facility] [address] [place] [address] Lab Director: Zaki Humphries MD Potassium [Moles/Vol] 4.0 mmol/L Normal 3.7-5.3 [facility] Comment on above: Performed By: #### C BC, BMP, MG ####[facility] [address] [place] [address] Lab Director: Zaki Humphries MD Sodium [Moles/Vol] 137 mmol/L Normal 135-144 [facility] Comment on above: Performed By: #### C BC, BMP, MG ####[facility] [address] [place] [address] Lab Director: Zaki Humphries MD Urea nitrogen [Mass/Vol] 17 mg/dL Normal 6-20 [facility] Comment on above: Performed By: #### C BC, BMP, MG ####[facility] [address] [place] [address] Lab Director: Zaki Humphries MD BUN/CRE Ratio NOT REPORTED Normal - [facility] Comment on above: Performed By: #### C BC, BMP, MG ####[facility] [address] [place] [address] Lab Director: Zaki Humphries MD Staging: NOT REPORTED Normal [facility] Comment on above: Performed By: #### C BC, BMP, MG ####[facility] [address] [place] [address] Lab Director: Zaki Humphries MD Basic metabolic panelon - Anion gap [Moles/Vol] 12 mmol/L 9 - 17 mmol/L [place] Bun/Cre Ratio NOT REPORTED [place], [place] Calcium [Mass/Vol] 9.2 mg/dL 8.6 - 10. 4 mg/dL [place] Chloride [Moles/Vol] 104 mmol/L 98 - 10 7 mmol/L [place] CO2 [Moles/Vol] 21 mmol/L 20 - 31 mmol/L [place] Creatinine [Mass/Vol] 0.65 mg/dL 0.5 - 0.9 mg/dL [place] GFR >60 >60 mL/min [place], [place] GFR Non- >60 >60 mL/min [place] GFR/1.73 sq M predicted among non-blacks MDRD (S/P/Bld) [Vol rate/Area] [place] Comment on above: Average GFR for 50-5 9 years old: 93 mL/min/1.73sq m Chronic Kidney Disease: <60 mL/min/1.73sq m Kidney failure: <15 mL/min/1.73sq m eGFR calculated using average adult body mass. Additional eGFR calculator available at: http://www.[employer]/multiple_crcl_2012.htm GFR/1.73 sq M predicted among non-blacks MDRD (S/P/Bld) [Vol rate/Area] NOT REPORTED [place], [place] Glucose [Mass/Vol] 102 mg/dL High 70 - 99 mg/dL [place], [place] Interpretation and review of laboratory results Abnormal [place] Potassium [Moles/Vol] 4.0 mmol/L 3.7 - 5.3 mmol/L [place] Sodium [Moles/Vol] 137 mmol/L 135 - 144 mmol/L [place] Urea nitrogen [Mass/Vol] 17 mg/dL 6 - 20 mg/dL [place] C-REACTIVE PROTEIN 020 CRP [Mass/Vol] 4.7 mg/L 0 - 5 mg/L [place], [place] C-Reactive Protein 020 CRP [Mass/Vol] 4.7 mg/L Normal 0.0-5.0 [facility] Comment on above: Performed By: #### D AU #### [facility] [employer] [address] [place] [address] Audio Visual Specialist: Zaki Humphries MD C3on 05-24-2019 C3 140 mg/dL Normal 90-180 [facility] Comment on above: Performed By: #### C 3, C4, CRP, TSHX, PHEP, SED, RA, ANASCX, ANCACP, GBMG, APA, HIVX, CRYO ####[facility] Center[facility] [address] [place] [address] [facility] Director: Zaki Humphries MD C3 COMPLEMENTon 05-24-2019 Complement C3 140 mg/dL 90 - 180 mg/dL [facility], [place] C4on 05-24-2019 C4 23 mg/dL Normal 10-40 [facility] Comment on above: Performed By: #### D AU #### [facility] CenterOut[facility] [address] [place] [address] Audio Visual Specialist: Zaki Humphries MD C4 COMPLEMENTon 05-24-2019 Complement C4 23 mg/dL 10 - 40 mg/dL [facility], [place] CBCon 05-24-2019 Erythrocyte distribution width (RBC) [Ratio] 13.1 % Normal 11.8-14.4 [facility] Comment on above: Performed By: #### C BC, BMP, MG ####[facility] CenterOutSmart Power SystemsIbiupqchph[address] [place] [address] Lab Director: Zaki Humphries MD Hematocrit (Bld) [Volume fraction] 43.2 % Normal 36.3-47.1 [facility] Comment on above: Performed By: #### C BC, BMP, MG ####[facility] Center[facility] [address] [place] [address] Lab Director: Zaki Humphries MD Hemoglobin (Bld) [Mass/Vol] 14.0 g/dL Normal 11.9-15.1 [facility] Comment on above: Performed By: #### C BC, BMP, MG ####[facility] [address] [place] [address] Lab Director: Zaki Humphries MD MCH (RBC) [Entitic mass] 30.2 pg Normal 25.2-33.5 [facility] Comment on above: Performed By: #### C BC, BMP, MG ####[facility] [address] [place], [place] [phone] Director: Zaki Humphries MD MCHC (RBC) [Mass/Vol] 32.4 g/dL Normal 28.4-34.8 [facility] Comment on above: Performed By: #### C BC, BMP, MG ####[facility] [address] [place], [place] [phone] Director: Zaki Humphries MD MCV (RBC) [Entitic vol] 93.3 fL Normal 82.6-102.9 [facility] Comment on above: Performed By: #### C BC, BMP, MG ####[facility] [address] [place], [place] [phone] Director: Zaki Humphries MD NRBC Automated 0.0 per 100 WBC Normal 0.0 [facility] Comment on above: Performed By: #### C BC, BMP, MG ####[facility] [address] [place], [place] [phone] Director: Zaki Humphries MD Platelet mean volume (Bld) [Entitic vol] 9.3 fL Normal 8.1-13.5 [facility] Comment on above: Performed By: #### C BC, BMP, MG ####[facility] [address] [place] [address] [phone] Director: Zaki Humphries MD Platelets (Bld) [#/Vol] 262 10*3/uL Normal 138-453 [facility] Comment on above: Performed By: #### C BC, BMP, MG ####[facility] [address] [place], [place] [phone] Director: Zaki Humphries MD RBC (Bld) [#/Vol] 4.63 10*6/uL Normal 3.95-5.11 [facility] Comment on above: Performed By: #### C BC, BMP, MG ####[facility] [address] [place] [address] Lab Director: Zaki Humphries MD WBC (Bld) [#/Vol] 11.0 10*3/uL Normal 3.5-11.3 [facility] Comment on above: Performed By: #### C BC, BMP, MG ####[facility] [address] [place] [address] Lab Director: Zaki Humphries MD Erythrocyte distribution width (RBC) [Ratio] 13.1 % 11.8 - 14.4 % [place] Hematocrit (Bld) [Volume fraction] 43.2 % 36.3 - 47.1 % [place] Hemoglobin (Bld) [Mass/Vol] 14.0 g/dL 11.9 - 15.1 g/dL [place] MCH (RBC) [Entitic mass] 30.2 pg 25.2 - 33.5 pg [place] MCHC (RBC) [Mass/Vol] 32.4 g/dL 28.4 - 34.8 g/dL [place] MCV (RBC) [Entitic vol] 93.3 fL 82.6 - 102.9 fL [place] Platelet mean volume (Bld) [Entitic vol] 9.3 fL 8.1 - 13.5 fL [place] Platelets (Bld) [#/Vol] 262 10*3/uL [place] RBC (Bld) [#/Vol] 4.63 10*6/uL 3.95 - 5.1 1 m/uL [place] WBC (Bld) [#/Vol] 0.0 10*3/uL 0.0 per 10 0 WBC [place] WBC (Bld) [#/Vol] 11.0 10*3/uL [place] DNA Testingon 05-24-2019 DNA Testing (NOTE) Specimen(s) Received: Peripheral blood, [facility] Clinical Information: TIA RESULTS: MOLECULAR GENETIC DIAGNOSIS: Negative for Factor V Leiden Mutation INTERPRETATION: The Factor V Leiden mutation (1691GA) [c.1601G>A([id number] )] was not detected in this study. This patient may, however, still be at risk for venous thrombosis due to another genetic predisposition including the Factor II (Prothrombin 06191TA) mutation or either of the 5, 10-methylenetetrahydro folate reductase (MTHFR) mutations (677T and G5747O) Additional molecular testing is available for these mutations in this laboratory. In addition, other etiologies not studied in this assay may predispose this patient to venous thrombosis. Patients and their families undergoing molecular diagnostic testing should understand that a normal result for such tests does not preclude the unlikely possibility of genotyping errors occurring as a result of rare genetic variants which can interfere with the analysis or an unusual mutation of the gene(s) being studied. This molecular test has been approved for in vitro diagnostic use by the U.S. FDA. This test is used for clinical purposes. Pursuant to the requirements of CLIA '88, this laboratory has established and verified the test's accuracy and precision. It should not be regarded as investigational or for research. This laboratory is certified under the Clinical Laboratory Improvement Amendments of 1988 (CLIA '88) as qualified to perform high complexity clinical laboratory testing. METHODOLOGY: Factor V Leiden is a single point mutation in the Factor V gene at nucleotide position 1691 involving a G to A substitution (1691GA), which predicts a single amino acid replacement ([id number]) at one of three activated protein C (APC) cleavage sites in the Factor Va molecule. Factor V Leiden is inactivated at an approximately 10-fold slower rate than normal Factor V and persists longer in the circulation, resulting in increased thrombin generation and a mild hypercoagulable state. Twenty to 40% of venous thrombosis cases are associated with this mutation, and more than 95% of cases of APC-resistance are caused by this mutation. Individuals heterozygous for the Factor V Leiden mutation have a slightly increased risk (5-fold to 8-fold) for venous thrombosis, and homozygous individuals have a much greater (up to 80-fold) thrombotic risk. Patient DNA is assayed for the presence of wild type or mutant gene sequences in the Factor V gene by the Invader Factor V test that utilizes WireOver chemistry for detecting gene-specific sequences. Target amplification is followed by the signal generation (Invader) phase of the assay. The Invader assay employs a genetically engineered nuclease, known as a Cleavasee enzyme, to recognize and cleave specific genomic structures formed by the addition of two oligonucleotide probes [Wild Type (WT) or Mutant (Mut)] to a nucleic acid target. Fluorescence signal intensity is enhanced through a second Cleavasee cleavage reaction and fluorescence resonance energy transfer (FRET), with detection of fluorescent signal using a fluorescence plate reader. Invader and Cleavase are registered trademarks of [employer]. This test is performed pursuant to an agreement with [employer]. Electronically Signed Out Archie Robison M.D. [facility] [address] [place] [phone] FACTOR V LEIDEN MUTATION ANALYSIS REPORT [facility] Jorge Wilde MD, Archie Robison MD [facility] Comment on above: Performed By: #### C DP, BMP, LIPR, MG, GLYHGB #### [facility] [address] [place] [phone] Audio Visual Specialist: Zaki Humphries MD HEPATITIS PANEL, [facility] HAV IgM IA Qn (S) NONREACTIVE NONREACTIVE [place], [place] Hep B Core Ab, IgM NONREACTIVE NONREACTIVE [place] Hepatitis B Surface Ag NONREACTIVE NONREACTIVE [place] Hepatitis C Ab NONREACTIVE NONREACTIVE [place], [place] Comment on above: The hepatitis C procedure used in our laboratory is a Chemiluminescent test specific for three recombinant HCV antigens. A negative anti-HCV result indicates that the antibodies to hepatitis C virus are not present at this time. Individuals with reactive anti-HCV should be considered infected and infectious until proven otherwise. Confirmation of all equivocal or reactive results is recommended by ordering HCV RNA by PCR. Hepatitis Acute [facility] 05-23 Hep A Ab,IgM NONREACTIVE Normal NR [facility] Comment on above: Performed By: #### D AU #### [facility] [address] [place] [phone] Audio Visual Specialist: Zaki Humphries MD Hep B Core Ab,IgM NONREACTIVE Normal NR [facility] Comment on above: Performed By: #### D AU #### [facility] [place], [place] [phone] Audio Visual Specialist: Zaki Humphries MD Hep B Surf Ag NONREACTIVE Normal NR [facility] Comment on above: Performed By: #### D AU #### [facility] [address] [place] [address] [phone] Audio Visual Specialist: Zaki Humphries MD Hep C Ab NONREACTIVE Normal NR [facility] Comment on above: Result Comment: The hepatitis C procedure used in our laboratory is a Chemiluminescent test specific for three recombinant HCV antigens. A negative anti-HCV result indicates that the antibodies to hepatitis C virus are not present at this time. Individuals with reactive anti-HCV should be considered infected and infectious until proven otherwise. Confirmation of all equivocal or reactive results is recommended by ordering HCV RNA by PCR. Performed By: #### D AU #### [facility] [address] [address] [place] [address] [phone] Audio Visual Specialist: Zaki Humphries MD Magnesiumon 05-24-2019 Magnesium [Mass/Vol] 2.4 mg/dL Normal 1.6-2.6 [facility] Comment on above: Performed By: #### C BC, BMP, MG ####[facility] [address] [place] [address] Lab Director: Zaki Humphries MD Magnesium [Mass/Vol] 2.4 mg/dL 1.6 - 2 .6 mg/dL [place] POC Glucose Fingerstickon Glucose [Mass/Vol] 190 mg/dL High 65 - 105 mg/dL [place] Interpretation and review of laboratory results Abnormal [place] Glucose [Mass/Vol] 170 mg/dL High 65 - 105 mg/dL [place] Interpretation and review of laboratory results Abnormal [place] Glucose [Mass/Vol] 85 mg/dL 65 - 105 mg/dL [place] Sedimentation Rateon 03-10-2 020 Sedimentation Rate 10 mm Normal 0-20 [facility] Comment on above: Performed By: #### D AU #### [facility] [address] [place] [address] Audio Visual Specialist: Zaki Humphries MD Sed Rate 10 mm 0 - 20 mm [place] TSH w/reflex to FT4on 2019 TSH Qn 3.52 m[IU]/L Normal 0.30-5.00 [facility] Comment on above: Performed By: #### D AU #### [email or web address] [address] [place] [address] Audio Visual Specialist: Zaki Humphries MD TSH with Reflexon 05-24-2019 TSH Qn 3.52 m[IU]/L [place] XR CHEST PORTABLEon 05-24-19 20 XR CHEST PORTABLE EXAMINATION: ONE XRAY VIEW OF THE CHEST 05/24/2019 2:14 pm COMPARISON: Chest radiograph performed 05/22/2019. HISTORY: ORDERING SYSTEM PROVIDED HISTORY: coughx2 weeks TECHNOLOGIST PROVIDED HISTORY: coughx2 weeks Reason for Exam: supine port Acuity: Unknown Type of Exam: Unknown FINDINGS: There is no acute consolidation or effusion. There is no pneumothorax. The mediastinal structures are unremarkable. The upper abdomen is unremarkable. The extrathoracic soft tissues are unremarkable. There is no acute osseous abnormality. IMPRESSION: No acute cardiopulmonary process. Interpreted by: Suresh Sanderson MD Signed by: Suresh Sanderson MD 05/24/19 Final result Normal [facility] No acute cardiopulmonary process. [place] EXAMINATION: ONE XRA Y VIEW OF THE CHEST 05/24/2019 2:14 pm COMPARISON: Chest radiograph performed 05/22/2019. HISTORY: ORDERING SYSTEM PROVIDED HISTORY: coughx2 weeks TECHNOLOGIST PROVIDED HISTORY: coughx2 weeks Reason for Exam: supine port Acuity: Unknown Type of Exam: Unknown FINDINGS: There is no acute consolidation or effusion. There is no pneumothorax. The mediastinal structures are unremarkable. The upper abdomen is unremarkable. The extrathoracic soft tissues are unremarkable. There is no acute osseous abnormality. [place] [employer], Mhpn Incoming Radiant Results From [employer]/[employer] - 05/24/2019 2:28 PM EDT EXAMINATION: ONE XRAY VIEW OF THE CHEST 05/24/2019 2:14 pm COMPARISON: Chest radiograph performed 05/22/2019. HISTORY: ORDERING SYSTEM PROVIDED HISTORY: coughx2 weeks TECHNOLOGIST PROVIDED HISTORY: coughx2 weeks Reason for Exam: supine port Acuity: Unknown Type of Exam: Unknown FINDINGS: There is no acute consolidation or effusion. There is no pneumothorax. The mediastinal structures are unremarkable. The upper abdomen is unremarkable. The extrathoracic soft tissues are unremarkable. There is no acute osseous abnormality. IMPRESSION: No acute cardiopulmonary process. [place] APTTon 05-23-2019 aPTT Coag (Bld) [Time] 24.3 s Normal 20.5-30.5 [facility] Comment on above: Performed By: #### P TT, PT ####[place] [place] [address] lab Director: Zaki Humphries MD aPTT Coag (Bld) [Time] 24.3 s [place] BASIC METABOLIC PANELon Anion gap [Moles/Vol] 13 mmol/L 9 - 17 mmol/L [place] Bun/Cre Ratio NOT REPORTED [place], [place] Calcium [Mass/Vol] 9.3 mg/dL 8.6 - 10. 4 mg/dL [place] Chloride [Moles/Vol] 98 mmol/L 98 - 10 7 mmol/L [place] CO2 [Moles/Vol] 23 mmol/L 20 - 31 mmol/L [place] Creatinine [Mass/Vol] 0.63 mg/dL 0.5 - 0.9 mg/dL [place] GFR >60 >60 mL/min [place] GFR Non- >60 >60 mL/min [place] GFR/1.73 sq M predicted among non-blacks MDRD (S/P/Bld) [Vol rate/Area] [place] Comment on above: Average GFR for 50-5 9 years old: 93 mL/min/1.73sq m Chronic Kidney Disease: <60 mL/min/1.73sq m Kidney failure: <15 mL/min/1.73sq m eGFR calculated using average adult body mass. Additional eGFR calculator available at: http://www.FITiST/multiple_crcl_2012.htm GFR/1.73 sq M predicted among non-blacks MDRD (S/P/Bld) [Vol rate/Area] NOT REPORTED [place] Glucose [Mass/Vol] 110 mg/dL High 70 - 99 mg/dL [place], [place] Potassium [Moles/Vol] 3.4 mmol/L Low 3.7 - 5.3 mmol/L [place] Sodium [Moles/Vol] 134 mmol/L Low 135 - 144 mmol/L [place] Urea nitrogen [Mass/Vol] 16 mg/dL 6 - 20 mg/dL [place] Basic Metabolic Profon 05-22 (cont.) Normal [facility] Comment on above: Result Comment: Aver age GFR for 50-59 years old: 93 mL/min/1.73sq m Chronic Kidney Disease: <60 mL/min/1.73sq m Kidney failure: <15 mL/min/1.73sq m eGFR calculated using average adult body mass. Additional eGFR calculator available at: http://www.FITiST/multiple_crcl_2012.htm Performed By: #### C BC, BMP, MG #### [email or web address] [address] [place] [address] [phone] Audio Visual Specialist: Zaki Humphries MD Anion gap [Moles/Vol] 13 mmol/L Normal 9-17 [facility] Comment on above: Performed By: #### C BC, BMP, MG #### [email or web address] [address] [place] [address] Audio Visual Specialist: Zaki Humphries MD Calcium [Mass/Vol] 9.2 mg/dL Normal 8.6-10.4 [facility] Comment on above: Performed By: #### C BC, BMP, MG #### [email or web address] [address] [place] [phone] Audio Visual Specialist: Zaki Humphries MD Chloride [Moles/Vol] 99 mmol/L Normal 98-107 [facility] Comment on above: Performed By: #### C BC, BMP, MG #### [facility] [address] [place] [address] Audio Visual Specialist: Zaki Humphries MD CO2 [Moles/Vol] 24 mmol/L Normal 20-31 [facility] Comment on above: Performed By: #### C BC, BMP, MG #### [facility] [address] [place] [address] Audio Visual Specialist: Zaki Humphries MD Creatinine [Mass/Vol] 0.72 mg/dL Normal 0.50-0.90 [facility] Comment on above: Performed By: #### C BC, BMP, MG #### [facility] [address] [place] [address] Audio Visual Specialist: Zaki Humphries MD GFR, Amer >60 Normal >60 [facility] Comment on above: Performed By: #### C BC, BMP, MG #### [facility] [address] [place] [address] 08907 Audio Visual Specialist: Zaki Humphries MD GFR,non Amer >60 Normal >60 [facility] Comment on above: Performed By: #### C BC, BMP, MG #### [facility] [address] [place] [address] 18811 Audio Visual Specialist: Zaki Humphries MD Glucose [Mass/Vol] 99 mg/dL Normal 70-99 [facility] Comment on above: Performed By: #### C BC, BMP, MG #### [facility] [address] [place] [address] Audio Visual Specialist: Zaki Humphries MD Potassium [Moles/Vol] 3.9 mmol/L Normal 3.7-5.3 [facility] Comment on above: Performed By: #### C BC, BMP, MG #### [facility] [place] [address] Audio Visual Specialist: Zaki Humphries MD Sodium [Moles/Vol] 136 mmol/L Normal 135-144 [facility] Comment on above: Performed By: #### C BC, BMP, MG #### [facility] [address] [place] [address] 23490 Audio Visual Specialist: Zaki Humphries MD Urea nitrogen [Mass/Vol] 15 mg/dL Normal 6-20 [facility] Comment on above: Performed By: #### C BC, BMP, MG #### [facility] [address] [place] [address] 71202 Audio Visual Specialist: Zaki Humphries MD BUN/CRE Ratio NOT REPORTED Normal -20 [facility] Comment on above: Performed By: #### C BC, BMP, MG #### [facility] [address] [place] [address]131 Audio Visual Specialist: Zaki Humphries MD Staging: NOT REPORTED Normal [facility] Comment on above: Performed By: #### C BC, BMP, MG #### [facility] [employer] [address] [place] [address]60 Audio Visual Specialist: Zaki Humphries MD (cont.) Normal [facility] Comment on above: Result Comment: Aver age GFR for 50-59 years old: 93 mL/min/1.73sq m Chronic Kidney Disease: <60 mL/min/1.73sq m Kidney failure: <15 mL/min/1.73sq m eGFR calculated using average adult body mass. Additional eGFR calculator available at: http://www.[employer].com/multiple_crcl_2012.htm Performed By: #### C DP, BMP, LIPR, MG, GLYHGB #### [facility] [address] [place] [address]34 Audio Visual Specialist: Zaki Humphries MD Anion gap [Moles/Vol] 13 mmol/L Normal 9-17 [facility] Comment on above: Performed By: #### C DP, BMP, LIPR, MG, GLYHGB #### [facility] [employer] [address] [place] [address] 19498 Audio Visual Specialist: Zaki Humphries MD Calcium [Mass/Vol] 9.3 mg/dL Normal 8.6-10.4 [facility] Comment on above: Performed By: #### C DP, BMP, LIPR, MG, GLYHGB #### [address] [address] Audio Visual Specialist: Zaki Humphries MD Chloride [Moles/Vol] 98 mmol/L Normal 98-107 [facility] Comment on above: Performed By: #### C DP, BMP, LIPR, MG, GLYHGB #### [address] [address] Audio Visual Specialist: Zaki Humphries MD CO2 [Moles/Vol] 23 mmol/L Normal 20-31 [facility] Comment on above: Performed By: #### C DP, BMP, LIPR, MG, GLYHGB #### [facility] [employer] [address] [place] [address]322 Audio Visual Specialist: Zaki Humphries MD Creatinine [Mass/Vol] 0.63 mg/dL Normal 0.50-0.90 [facility] Comment on above: Performed By: #### C DP, BMP, LIPR, MG, GLYHGB #### [facility] [employer] [address] [place] [address] 88633 Audio Visual Specialist: Zaki Humphries MD GFR, Amer >60 Normal >60 [facility] Comment on above: Performed By: #### C DP, BMP, LIPR, MG, GLYHGB #### [facility] [employer] [address] [place] [address] Audio Visual Specialist: Zaki Humphries MD GFR,non Amer >60 Normal >60 [facility] Comment on above: Performed By: #### C DP, BMP, LIPR, MG, GLYHGB #### [address] [address] Audio Visual Specialist: Zaki Humphries MD Glucose [Mass/Vol] 110 mg/dL High 70-99 [facility] Comment on above: Performed By: #### C DP, BMP, LIPR, MG, GLYHGB #### [address] [address] Audio Visual Specialist: Zaki Humphries MD Potassium [Moles/Vol] 3.4 mmol/L Low 3.7-5.3 [facility] Comment on above: Performed By: #### C DP, BMP, LIPR, MG, GLYHGB #### [address] [address] Audio Visual Specialist: Zaki Humphries MD Sodium [Moles/Vol] 134 mmol/L Low 135-144 [facility] Comment on above: Performed By: #### C DP, BMP, LIPR, MG, GLYHGB #### [address] [address] Audio Visual Specialist: Zaki Humphries MD Urea nitrogen [Mass/Vol] 16 mg/dL Normal -20 [facility] Comment on above: Performed By: #### C DP, BMP, LIPR, MG, GLYHGB #### [address] [address] Audio Visual Specialist: Zaki Humphries MD BUN/CRE Ratio NOT REPORTED Normal -20 [facility] Comment on above: Performed By: #### C DP, BMP, LIPR, MG, GLYHGB #### [facility] [employer] [address] [place] [address] Audio Visual Specialist: Zaki Humphries MD Staging: NOT REPORTED Normal [facility] Comment on above: Performed By: #### C DP, BMP, LIPR, MG, GLYHGB #### [facility] [employer] [address] [place] [address] Audio Visual Specialist: Zaki Humphries MD Basic metabolic panelon Anion gap [Moles/Vol] 13 mmol/L 9 - 17 mmol/L [place] Bun/Cre Ratio NOT REPORTED [place] Calcium [Mass/Vol] 9.2 mg/dL 8.6 - 10. 4 mg/dL [place] Chloride [Moles/Vol] 99 mmol/L 98 - 10 7 mmol/L [place] CO2 [Moles/Vol] 24 mmol/L 20 - 31 mmol/L [place] Creatinine [Mass/Vol] 0.72 mg/dL 0.5 - 0.9 mg/dL [place] GFR >60 >60 mL/min [place] GFR Non- >60 >60 mL/min [place] GFR/1.73 sq M predicted among non-blacks MDRD (S/P/Bld) [Vol rate/Area] [place] Comment on above: Average GFR for 50-5 9 years old: 93 mL/min/1.73sq m Chronic Kidney Disease: <60 mL/min/1.73sq m Kidney failure: <15 mL/min/1.73sq m eGFR calculated using average adult body mass. Additional eGFR calculator available at: http://www.[employer]/multiple_crcl_2012.htm GFR/1.73 sq M predicted among non-blacks MDRD (S/P/Bld) [Vol rate/Area] NOT REPORTED [place] Glucose [Mass/Vol] 99 mg/dL 70 - 99 mg/dL [place] Potassium [Moles/Vol] 3.9 mmol/L 3.7 - 5.3 mmol/L [place] Sodium [Moles/Vol] 136 mmol/L 135 - 144 mmol/L [place] Urea nitrogen [Mass/Vol] 15 mg/dL 6 - 20 mg/dL [place] CBCon 05-23-2019 Erythrocyte distribution width (RBC) [Ratio] 13.2 % Normal 11.8-14.4 [facility] Comment on above: Performed By: #### C BC, BMP, MG #### [facility] [address] [place] [address] Audio Visual Specialist: Zaki Humphries MD Hematocrit (Bld) [Volume fraction] 47.1 % Normal 36.3-47.1 [facility] Comment on above: Performed By: #### C BC, BMP, MG #### [facility] [address] [place] [address] Audio Visual Specialist: Zaki Humphries MD Hemoglobin (Bld) [Mass/Vol] 15.0 g/dL Normal 11.9-15.1 [facility] Comment on above: Performed By: #### C BC, BMP, MG #### [facility] [address] [place] [address] Audio Visual Specialist: Zaki Humphries MD MCH (RBC) [Entitic mass] 29.6 pg Normal 25.2-33.5 [facility] Comment on above: Performed By: #### C BC, BMP, MG #### [facility] [address] [place] [address] Audio Visual Specialist: Zaki Humphries MD MCHC (RBC) [Mass/Vol] 31.8 g/dL Normal 28.4-34.8 [facility] Comment on above: Performed By: #### C BC, BMP, MG #### [facility] [employer] [address] [place] [id number] Audio Visual Specialist: Zaki Humphries MD MCV (RBC) [Entitic vol] 92.9 fL Normal 82.6-102.9 [facility] Comment on above: Performed By: #### C BC, BMP, MG #### [facility] [employer] [facility] [place] [address] Audio Visual Specialist: Zaki Humphries MD NRBC Automated 0.0 per 100 WBC Normal 0.0 [facility] Comment on above: Performed By: #### C BC, BMP, MG #### [facility] [employer] [address] [place] [address] Audio Visual Specialist: Zaki Humphries MD Platelet mean volume (Bld) [Entitic vol] 9.6 fL Normal 8.1-13.5 [facility] Comment on above: Performed By: #### C LAURA BMP, MG #### [facility] [employer] [address] [place] [address] Audio Visual Specialist: Zaki Humphries MD Platelets (Bld) [#/Vol] 300 10*3/uL Normal 138-453 [facility] Comment on above: Performed By: #### C LAURA BMP, MG #### [facility] [employer] [address] [place] [address] Audio Visual Specialist: Zaki Humphries MD RBC (Bld) [#/Vol] 5.07 10*6/uL Normal 3.95-5.11 [facility] Comment on above: Performed By: #### C LAURA BMP, MG #### [facility] [employer] [address] [place] [phone] Audio Visual Specialist: Zaki Humphries MD WBC (Bld) [#/Vol] 14.1 10*3/uL High 3.5-11.3 [facility] Comment on above: Performed By: #### C LAURA BMP, MG #### [facility] [employer] [address] [place] [address] Audio Visual Specialist: Zaki Humphries MD Erythrocyte distribution width (RBC) [Ratio] 13.2 % 11.8 - 14.4 % [facility], [place] Hematocrit (Bld) [Volume fraction] 47.1 % 36.3 - 47.1 % [place] Hemoglobin (Bld) [Mass/Vol] 15.0 g/dL 11.9 - 15.1 g/dL [place] Interpretation and review of laboratory results Abnormal [place] MCH (RBC) [Entitic mass] 29.6 pg 25.2 - 33.5 pg [place] MCHC (RBC) [Mass/Vol] 31.8 g/dL 28.4 - 34.8 g/dL [place] MCV (RBC) [Entitic vol] 92.9 fL 82.6 - 102.9 fL [place] Platelet mean volume (Bld) [Entitic vol] 9.6 fL 8.1 - 13.5 fL [place] Platelets (Bld) [#/Vol] 300 10*3/uL [place] RBC (Bld) [#/Vol] 5.07 10*6/uL 3.95 - 5.1 1 m/uL [place] WBC (Bld) [#/Vol] 0.0 10*3/uL 0.0 per 10 0 WBC [place] WBC (Bld) [#/Vol] 14.1 10*3/uL [place] CBC WITH AUTO DIFFERENTIALon 05-23-2019 Basophils (Bld) [#/Vol] 0.09 10*3/uL [place] Basophils/100 WBC (Bld) 1 % 0 - 2 % [place] Differential Type NOT REPORTED [place] Eosinophils (Bld) [#/Vol] 0.16 10*3/uL [place] Eosinophils/100 WBC (Bld) 1 % 1 - 4 % [place] Erythrocyte distribution width (RBC) [Ratio] 13.2 % 11.8 - 14.4 % [place] Hematocrit (Bld) [Volume fraction] 47.0 % 36.3 - 47.1 % [place] Hemoglobin (Bld) [Mass/Vol] 14.8 g/dL 11.9 - 15.1 g/dL [place] Immature granulocytes (Bld) [#/Vol] 0.11 10*3/uL [place] Immature granulocytes (Bld) [#/Vol] 1 % High 0 [place] Interpretation and review of laboratory results Abnormal [place] Lymphocytes (Bld) [#/Vol] 4.10 10*3/uL [place] Lymphocytes/100 WBC (Bld) 26 % 24 - 43 % [place] MCH (RBC) [Entitic mass] 29.6 pg 25.2 - 33.5 pg [place] MCHC (RBC) [Mass/Vol] 31.5 g/dL 28.4 - 34.8 g/dL [place] MCV (RBC) [Entitic vol] 94.0 fL 82.6 - 102.9 fL [place] Monocytes (Bld) [#/Vol] 1.05 10*3/uL [place] Monocytes/100 WBC (Bld) 7 % 3 - 12 % [place] Platelet mean volume (Bld) [Entitic vol] 9.3 fL 8.1 - 13.5 fL [place] Platelets (Bld) [#/Vol] 296 10*3/uL [place] Platelets (Bld) [#/Vol] NOT REPORTED [place] RBC (Bld) [#/Vol] 5.00 10*6/uL 3.95 - 5.1 1 m/uL [place] RBC morphology finding Nom (Bld) NOT REPORTED [place] Segmented neutrophils/100 WBC (Bld) 64 % 36 - 65 % [place] Segs Absolute 10.39 [place] WBC (Bld) [#/Vol] 0.0 10*3/uL 0.0 per 10 0 WBC [place] WBC (Bld) [#/Vol] 15.9 10*3/uL [place] WBC Morphology NOT REPORTED [place] CBC with Diffon 05-23-2019 Abs. Basophil 0.09 k/uL Normal 0.00-0.20 [facility] Comment on above: Performed By: #### C DP, BMP, LIPR, MG, GLYHGB #### [place] [address] Audio Visual Specialist: Zaki Humphries MD Abs.Imm.Granulocyte 0.11 k/uL Normal 0.00-0.30 [facility] Comment on above: Performed By: #### C DP, BMP, LIPR, MG, GLYHGB #### [place] [address] Audio Visual Specialist: Zaki Humphries MD Abs.Neutrophil (Seg) 10.39 k/uL High 1.50-8.10 [facility] Comment on above: Performed By: #### C DP, BMP, LIPR, MG, GLYHGB #### [place] [address] Audio Visual Specialist: Zaki Humphries MD Basophils/100 WBC (Bld) 1 % Normal 0-2 [facility] Comment on above: Performed By: #### C DP, BMP, LIPR, MG, GLYHGB #### [place] [address] Audio Visual Specialist: Zaki Humphries MD Eosinophils (Bld) [#/Vol] 0.16 10*3/uL Normal 0.00-0.44 [facility] Comment on above: Performed By: #### C DP, BMP, LIPR, MG, GLYHGB #### [place] [address] Audio Visual Specialist: Zaki Humphries MD Eosinophils/100 WBC (Bld) 1 % Normal 1-4 [facility] Comment on above: Performed By: #### C DP, BMP, LIPR, MG, GLYHGB #### [place] [address] Audio Visual Specialist: Zaki Humphries MD Erythrocyte distribution width (RBC) [Ratio] 13.2 % Normal 11.8-14.4 [facility] Comment on above: Performed By: #### C DP, BMP, LIPR, MG, GLYHGB #### [facility] [employer] [address] [place] [address] Audio Visual Specialist: Zaki Humphries MD Hematocrit (Bld) [Volume fraction] 47.0 % Normal 36.3-47.1 [facility] Comment on above: Performed By: #### C DP, BMP, LIPR, MG, GLYHGB #### [facility] [employer] [address] [place] [address]335 Audio Visual Specialist: Zaki Humphries MD Hemoglobin (Bld) [Mass/Vol] 14.8 g/dL Normal 11.9-15.1 [facility] Comment on above: Performed By: #### C DP, BMP, LIPR, MG, GLYHGB #### [facility] [employer] [address] [place] [address] Audio Visual Specialist: Zaki Humphries MD Immature granulocytes (Bld) [#/Vol] 1 % High 0 [facility] Comment on above: Performed By: #### C DP, BMP, LIPR, MG, GLYHGB #### [facility] [employer] [address] [place] [address] Audio Visual Specialist: Zaki Humphries MD Lymphocytes (Bld) [#/Vol] 4.10 10*3/uL High 1.10-3.70 [facility] Comment on above: Performed By: #### C DP, BMP, LIPR, MG, GLYHGB #### [facility] [employer] [address] [place] [address] Audio Visual Specialist: Zaki Humphries MD Lymphocytes/100 WBC (Bld) 26 % Normal 24-43 [facility] Comment on above: Performed By: #### C DP, BMP, LIPR, MG, GLYHGB #### [address] [address] Audio Visual Specialist: Zaki Humphries MD MCH (RBC) [Entitic mass] 29.6 pg Normal 25.2-33.5 [facility] Comment on above: Performed By: #### C DP, BMP, LIPR, MG, GLYHGB #### [address] [address] Audio Visual Specialist: Zaki Humphries MD MCHC (RBC) [Mass/Vol] 31.5 g/dL Normal 28.4-34.8 [facility] Comment on above: Performed By: #### C DP, BMP, LIPR, MG, GLYHGB #### [address] [address] Audio Visual Specialist: Zaki Humphries MD MCV (RBC) [Entitic vol] 94.0 fL Normal 82.6-102.9 [facility] Comment on above: Performed By: #### C DP, BMP, LIPR, MG, GLYHGB #### [address] [address] Audio Visual Specialist: Zaki Humphries MD Monocytes (Bld) [#/Vol] 1.05 10*3/uL Normal 0.10-1.20 [facility] Comment on above: Performed By: #### C DP, BMP, LIPR, MG, GLYHGB #### [address] [address] Audio Visual Specialist: Zaki Humphries MD Monocytes/100 WBC (Bld) 7 % Normal 3-12 [facility] Comment on above: Performed By: #### C DP, BMP, LIPR, MG, GLYHGB #### [address] [address] Audio Visual Specialist: Zaki Humphries MD Neutrophil (Seg) 64 % Normal 36-65 [facility] Comment on above: Performed By: #### C DP, BMP, LIPR, MG, GLYHGB #### [address] [address] Audio Visual Specialist: Zaki Humphries MD NRBC Automated 0.0 per 100 WBC Normal 0.0 [facility] Comment on above: Performed By: #### C DP, BMP, LIPR, MG, GLYHGB #### [address] [address] Audio Visual Specialist: Zaki Humphries MD Platelet mean volume (Bld) [Entitic vol] 9.3 fL Normal 8.1-13.5 [facility] Comment on above: Performed By: #### C DP, BMP, LIPR, MG, GLYHGB #### [address] [address] Audio Visual Specialist: Zaki Humphries MD Platelets (Bld) [#/Vol] 296 10*3/uL Normal 138-453 [facility] Comment on above: Performed By: #### C DP, BMP, LIPR, MG, GLYHGB #### [address] [address] Audio Visual Specialist: Zaki Humphries MD RBC (Bld) [#/Vol] 5.00 10*6/uL Normal 3.95-5.11 [facility] Comment on above: Performed By: #### C DP, BMP, LIPR, MG, GLYHGB #### [address] [address] Audio Visual Specialist: Zaki Humphries MD WBC (Bld) [#/Vol] 15.9 10*3/uL High 3.5-11.3 [facility] Comment on above: Performed By: #### C DP, BMP, LIPR, MG, GLYHGB #### [address] [address] Audio Visual Specialist: Zaki Humphries MD Auto Diff Performed NOT REPORTED Normal [facility] Comment on above: Performed By: #### C DP, BMP, LIPR, MG, GLYHGB #### [address] [address] Audio Visual Specialist: Zaki Humphries MD Platelets (Bld) [#/Vol] NOT REPORTED Normal [facility] Comment on above: Performed By: #### C DP, BMP, LIPR, MG, GLYHGB #### [address] [address] Audio Visual Specialist: Zaki Humphries MD RBC morphology finding Nom (Bld) NOT REPORTED Normal [facility] Comment on above: Performed By: #### C DP, BMP, LIPR, MG, GLYHGB #### [address] [address] Audio Visual Specialist: Zaki Humphries MD WBC Morphology NOT REPORTED Normal [facility] Comment on above: Performed By: #### C DP, BMP, LIPR, MG, GLYHGB #### [address] [address] Audio Visual Specialist: Zaki Humphries MD Drug Scr, Abuse, Uron 2019 Amphetamine(s),Ur Negative Normal NEG [facility] Comment on above: Result Comment: (Positive cutoff 1000 ng/mL) Performed By: #### D AU #### [address] [address] Audio Visual Specialist: Zaki Humphries MD Barbiturate(s),Ur Negative Normal NEG [facility] Comment on above: Result Comment: (Positive cutoff 200 ng/mL) Performed By: #### D AU #### [address] [address] Audio Visual Specialist: Zaki Humphries MD Base excess Calc (Bld) [Moles/Vol] Negative Normal NEG [facility] Comment on above: Result Comment: (Positive cutoff 300 ng/mL) Performed By: #### D AU #### [facility] [address] [place] [address] Audio Visual Specialist: Zaki Humphries MD Benzodiazepine(s) Negative Normal NEG [facility] Comment on above: Result Comment: (Positive cutoff 200 ng/mL) Performed By: #### D AU #### [address] [address] Audio Visual Specialist: Zaki Humphries MD Cannabinoid(s),Ur Negative Normal NEG [facility] Comment on above: Result Comment: (Positive cutoff 50 ng/mL) Performed By: #### D AU #### [address] [address] Audio Visual Specialist: Zaki Humphries MD Interpretive Info Assay provides medic al screening only. The absence of expected drug(s) and/or Normal [facility] Comment on above: Result Comment: meta bolite(s) may indicate diluted or adulterated urine, limitations of testing or timing of collection. Testing for legal purposes should be confirmed by another method. To request confirmation of test result, please call the lab within 7 days of sample submission. Performed By: #### D AU #### [address] [address] Audio Visual Specialist: Zaki Humphries MD Methadone Ql (U) Negative Normal NEG [facility] Comment on above: Result Comment: (Positive cutoff 300 ng/mL) Performed By: #### D AU #### [facility] [address] [place] [address] Audio Visual Specialist: Zaki Humphries MD Opiate(s), Ur Negative Normal NEG [facility] Comment on above: Result Comment: (Positive cutoff 300 ng/mL) Performed By: #### D AU #### [facility] [address] [place] [address] Audio Visual Specialist: Zaki Humphries MD Oxycodone, Urine Negative Normal NEG [facility] Comment on above: Result Comment: (Positive cutoff 100 ng/mL) Performed By: #### D AU #### [address] [phone] Audio Visual Specialist: Zaki Humphries MD Phencyclidine, Ur Negative Normal NEG [facility] Comment on above: Result Comment: (Positive cutoff 25 ng/mL) Performed By: #### D AU #### [address] [phone] Audio Visual Specialist: Zaki Humphries MD EEG video monitoringon 05-22 Meño Reyez MD 05/23/2019 9:31 PM LONG-TERM EEG-VIDEO MONITORING CLINICAL NEUROPHYSIOLOGY LABORATORY DEPARTMENT OF NEUROLOGY [facility] [place] [facility] Patient: Suly Huertajori Age: 58 y.o. Referring Physician: No ref. provider found History: The patient is a 58 y.o. female who presented breakthrough seizure/encephalopathy . This long-term video-EEG monitoring study was performed to determine the nature of the patient's clinical events. The patient is on neuroactive medications. Suly Huffman Current Facility-Administered Medications Medication Dose Route Frequency Provider Last Rate Last Dose benzonatate (TESSALON) capsule 100 mg 100 mg Oral TID PRN Sandra Lock 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 PULP DRIER 100 mg at 05/23/19 1012 fluticasone (FLONASE) 50 MCG/ACT nasal spray 1 spray 1 spray Each Nostril Daily Sandra Lock [employer] - 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 PULP DRIER 1 spray at 05/23/19 1012 levETIRAcetam (KEPPRA) tablet 500 mg 500 mg Oral BID Bettie Horn DO sodium chloride flush 0.9 % injection 10 mL 10 mL Intravenous PRN Sandra Lock [employer] - [employer]LIND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 PULP DRIER sodium chloride flush 0.9 % injection 10 mL 10 mL Intravenous 2 times per day Bettie Horn DO 10 mL at 05/23/19 0842 sodium chloride flush 0.9 % injection 10 mL 10 mL Intravenous PRN Bettie Justina, DO magnesium sulfate 1 g in dextrose 5% 100 mL IVPB 1 g Intravenous PRN Bettie Justina, DO acetaminophen (TYLENOL) tablet 650 mg 650 mg Oral Q4H PRN Bettie Justina, DO 650 mg at 05/23/19 1735 niMODipine (NIMOTOP) capsule 60 mg 60 mg Oral 6 times per day Bettie Justina, DO 60 mg at 05/23/19 1736 perflutren lipid microspheres (DEFINITY) injection 1.65 mg 1.5 mL Intravenous ONCE PRN Bettie Justina, DO promethazine (PHENERGAN) tablet 12.5 mg 12.5 mg Oral Q6H PRN Bettie Justina, DO Or ondansetron (ZOFRAN) injection 4 mg 4 mg Intravenous Q6H PRN Bettie Justina, DO atorvastatin (LIPITOR) tablet 40 mg 40 mg Oral Nightly Bettie Justina, DO 40 mg at 05/22/19 2210 labetalol (NORMODYNE;TRANDATE) injection syringe 10 mg 10 mg Intravenous Q10 Min PRN Bettie Justina, DO hydrALAZINE (APRESOLINE) injection 10 mg 10 mg Intravenous Q6H PRN Bettie Justina, DO 0.9 % sodium chloride infusion Intravenous Continuous Bettie Justina, DO 100 mL/hr at 05/23/19 0905 Technical Description: This is a 21-channel digital EEG recording with time-locked video. Electrodes were placed in accordance with the 10-20 International System of Electrode Placement. Single lead EKG monitoring was included. Baseline EEG Recording: A formal baseline EEG recording was not obtained. Day 1 - 05/23/19, starting at 21:19 Interictal EEG Samples: In the alert state, the posterior background rhythm was a symmetric, well-modulated, 9-10 Hz, 20-40 uV rhythm which reacted symmetrically to eye opening and had a normal frequency-amplitude gradient with an age-appropriate mixture of frequencies. During drowsiness, there were bursts of diffuse slowing and waxing and waning of the posterior dominant rhythm. The EKG channel revealed no abnormalities. Ictal EEG Recording / Patient Events: During this period the patient had no events or seizures. Summary: During this day of recording no events were recorded. The interictal EEG was normal. Monitoring was continued in order to record the patient's typical events. The EKG channel revealed no abnormalities. MEÑO REYEZ MD Diplomate, [place] [employer] Psychiat[employer] and Neurology Diplomate, [place] Board of Clinical Neurophysiology Diplomate, [place] Board of Epilepsy Please note this is a preliminary report and updated daily. The final report will have a summary of behavior and electrographic findings with clinical correlation. [place] EKG 12 Leadon 05-23-2019 Atrial Rate 52 BPM [place] P [place] 32 degrees [place] P-R Interval 194 ms [place] Q-T Interval 468 ms [place] QRS Duration 86 ms [place] QTc Calculation (Bazett) 435 ms [place] R [place] -30 degrees [facility], [place] T [place] -5 degrees [place] Ventricular Rate 52 BPM [place] Sinus bradycardia Le ft axis deviation Abnormal ECG No previous ECGs available [place], Mhpn Incoming E kg Results From [employer] [place] - 05/23/2019 2:16 PM EDT Sinus bradycardia Left axis deviation Abnormal ECG No previous ECGs available [place] HEMOGLOBIN A1Con 05-23-2019 Glucose [Mass/Vol] 111 mg/dL [place] Comment on above: The ADA and AACC rec ommend providing the estimated average glucose result to permit better patient understanding of their HBA1c result. HbA1c (Bld) [Mass fraction] 5.5 % 4 - 6 % [place] Hemoglobin A1Con 05-23-2019 HbA1c (Bld) [Mass fraction] 5.5 % Normal 4.0-6.0 [facility] Comment on above: Performed By: #### C DP, BMP, LIPR, MG, GLYHGB #### [email or web address] [facility] [place] [address] Audio Visual Specialist: Zaki Humphries MD HbA1c (Bld) [Mass fraction] 111 mg/dL Normal [facility] Comment on above: Result Comment: The ADA and AACC recommend providing the estimated average glucose result to permit better patient understanding of their HBA1c result. Performed By: #### C DP, BMP, LIPR, MG, GLYHGB #### [facility] [employer] [facility] [place], [place] [phone] Audio Visual Specialist: Zaki Humphries MD LIPID PANELon 05-23-2019 Cholesterol [Mass/Vol] 150 mg/dL <200 [place] Comment on above: Cholesterol Guidelines: <200 Desirable 200-240 Borderline >240 Undesirable Cholesterol in HDL [Mass/Vol] 31 mg/dL Low >40 [place] Comment on above: HDL Guidelines: <40 Undesirable 40-59 Borderline >59 Desirable Cholesterol in LDL [Mass/Vol] 74 mg/dL 0 - 130 mg/dL [place] Comment on above: LDL Guidelines: <100 Desirable 100-129 Near to/above Desirable 130-159 Borderline >159 Undesirable Direct (measured) LDL and calculated LDL are not interchangeable tests. Cholesterol in VLDL [Mass/Vol] NOT REPORTED High 1 - 30 mg/dL [place] Cholesterol.total/Ch olesterol in HDL [Mass ratio] 4.8 {ratio} <5 [place] Triglyceride [Mass/Vol] 226 mg/dL High <150 [place] Comment on above: Triglyceride Guidelines: <150 Desirable 150-199 Borderline 200-499 High >499 Very high Based on AHA Guidelines for fasting triglyceride, December 2011. Lipid Profileon 05-23-2019 Cholesterol [Mass/Vol] 150 mg/dL Normal <200 [facility] Comment on above: Result Comment: Cholesterol Guidelines: <200 Desirable 200-240 Borderline >240 Undesirable Performed By: #### C DP, BMP, LIPR, MG, GLYHGB #### [facility] [employer] [facility] [place], [place] [phone] Audio Visual Specialist: Zaki Humphries MD Cholesterol in HDL [Mass/Vol] 31 mg/dL Low >40 [facility] Comment on above: Result Comment: HDL Guidelines: <40 Undesirable 40-59 Borderline >59 Desirable Performed By: #### C DP, BMP, LIPR, MG, GLYHGB #### [facility] [employer] [facility] [place], [place] [phone] Audio Visual Specialist: Zaki Humphries MD Cholesterol in LDL [Mass/Vol] 74 mg/dL Normal 0-130 [facility] Comment on above: Result Comment: LDL Guidelines: <100 Desirable 100-129 Near to/above Desirable 130-159 Borderline >159 Undesirable Direct (measured) LDL and calculated LDL are not interchangeable tests. Performed By: #### C DP, BMP, LIPR, MG, GLYHGB #### [facility] [employer] [address] [place] [address] [phone] Audio Visual Specialist: Zaki Humphries MD Cholesterol.total/Ch olesterol in HDL [Mass ratio] 4.8 {ratio} Normal <5 [facility] Comment on above: Performed By: #### C DP, BMP, LIPR, MG, GLYHGB #### [facility] [employer] [address] [place] [address] Audio Visual Specialist: Zaki Humphries MD Triglyceride [Mass/Vol] 226 mg/dL High <150 [facility] Comment on above: Result Comment: Triglyceride Guidelines: <150 Desirable 150-199 Borderline 200-499 High >499 Very high Based on AHA Guidelines for fasting triglyceride, December 2011. Performed By: #### C DP, BMP, LIPR, MG, GLYHGB #### [facility] [employer] [address] [place] [address] Audio Visual Specialist: Zaki Humphries MD Cholesterol in VLDL [Mass/Vol] NOT REPORTED Normal 1-30 [facility] Comment on above: Performed By: #### C DP, BMP, LIPR, MG, GLYHGB #### [facility] [employer] [address] [place] [address] [phone] Audio Visual Specialist: Zaki Humphries MD MAGNESIUMon 05-23-2019 Magnesium [Mass/Vol] 2.4 mg/dL 1.6 - 2 .6 mg/dL [place] MRSA DNA Probe, Nasalon MRSA, DNA, Nasal NEGATIVE: MRSA DNA n ot detected by nucleic acid amplification. NEGATIVE: MRSA DNA not detected by nucleic acid amplificati [place] Comment on above: Results should be used as an adjunct to nosocomial control efforts to identify patients needing enhanced precautions. The test is not intended to identify patients with staphylococcal infections. Results should not be used to guide or monitor treatment for MRSA infections. Specimen Description .NASAL SWAB [place], [place] MRSA, DNA, Nasalon 0 MRSA, DNA, Nasal NEGATIVE: MRSA DNA n ot detected by nucleic acid amplification. Normal NMRSAA [facility] Comment on above: Result Comment: Results should be used as an adjunct to nosocomial control efforts to identify patients needing enhanced precautions. The test is not intended to identify patients with staphylococcal infections. Results should not be used to guide or monitor treatment for MRSA infections. Performed By: #### M RSANO ####[facility] CenterOutSmart Power [id number] [place] [id number] Lab Director: Zaki Humphries MD Magnesiumon 05-23-2019 Magnesium [Mass/Vol] 2.4 mg/dL Normal 1.6-2.6 [facility] Comment on above: Performed By: #### C BC, BMP, MG ####[facility] CenterTinkoff Digital Bagatdrgxyip[address] [place] [address] [id number] Lab Director: Zaki Humphries MD Magnesium [Mass/Vol] 2.4 mg/dL 1.6 - 2 .6 mg/dL [place], [place] Magnesium [Mass/Vol] 2.4 mg/dL Normal 1.6-2.6 [facility] Comment on above: Performed By: #### C DP, BMP, LIPR, MG, GLYHGB #### [facility] [employer] [address] [place] [address] Audio Visual Specialist: Zaki Humphries MD Otheron 05-23-2019 Interpretation and review of laboratory results Abnormal [place], [place] PROTIME-INRon 05-23-2019 INR Coag (PPP) [Relative time] 1.0 {INR} [place], [place] Comment on above: Therapeutic Range: Moderate Anticoagulant Intensity: INR = 2.0-3.0 High Anticoagulant Intensity: INR = 2.5-3.5 PT Coag (PPP) [Time] 11 s [place], [place] PTon 05-23-2019 INR Coag (PPP) [Relative time] 1.0 {INR} Normal [facility] Comment on above: Result Comment: Therapeutic Range: Moderate Anticoagulant Intensity: INR = 2.0-3.0 High Anticoagulant Intensity: INR = 2.5-3.5 Performed By: #### P TT, PT ####[address] [address] Lab Director: Zaki Humphries MD PT Coag (PPP) [Time] 11.0 s Normal 9.0-12.0 [facility] Comment on above: Performed By: #### P TT, PT ####[address] [address] Lab Director: Zaki Humphries MD Troponinon 05-23-2019 Troponin I.cardiac [Mass/Vol] 7 ng/L Normal 0-14 [facility] Comment on above: Result Comment: High Sensitivity Troponin values cannot be compared with other Troponin methodologies. Patients with high levels of Biotin oral intake (i.e >5mg/day) may have falsely decreased Troponin levels. Samples collected within 8 hours of biotin intake may require additional information for diagnosis. Performed By: #### T ROPI ####[facility] [place] [address] [place] [address] Lab Director: Zaki Humphries MD Troponin I.cardiac [Mass/Vol] NOT REPORTED Normal <0.03 [facility] Comment on above: Performed By: #### T ROPI ####[facility] CenterOutSmart Power SystemsVzgysvkvqonm[address] [place] [address] Lab Director: Zaki Humphries MD Troponin I.cardiac [Mass/Vol] NOT REPORTED [place], [place] Troponin T.cardiac [Mass/Vol] NOT REPORTED <0.03 ng/mL [place] Troponin, High Sensitivity 7 ng/L 0 - 14 ng/L [place] Comment on above: High Sensitivity Troponin values cannot be compared with other Troponin methodologies. Patients with high levels of Biotin oral intake (i.e >5mg/day) may have falsely decreased Troponin levels. Samples collected within 8 hours of biotin intake may require additional information for diagnosis. Troponin I.cardiac [Mass/Vol] 7 ng/L Normal 0-14 [facility] Comment on above: Result Comment: High Sensitivity Troponin values cannot be compared with other Troponin methodologies. Patients with high levels of Biotin oral intake (i.e >5mg/day) may have falsely decreased Troponin levels. Samples collected within 8 hours of biotin intake may require additional information for diagnosis. Performed By: #### T ROPI ####[facility] [employer] [address] [place] [address] Lab Director: Zaki Humphries MD Troponin I.cardiac [Mass/Vol] NOT REPORTED Normal [facility] Comment on above: Performed By: #### T ROPI ####[email or web address] [place] [address] lab Director: Zaki Humphries MD Troponin I.cardiac [Mass/Vol] NOT REPORTED [place] Troponin T.cardiac [Mass/Vol] NOT REPORTED <0.03 ng/mL [place] Troponin, High Sensitivity 7 ng/L 0 - 14 ng/L [place] Comment on above: High Sensitivity Troponin values cannot be compared with other Troponin methodologies. Patients with high levels of Biotin oral intake (i.e >5mg/day) may have falsely decreased Troponin levels. Samples collected within 8 hours of biotin intake may require additional information for diagnosis. VL TRANSCRANIAL DOPPLER COMP ANHEon 05-23-2019 Ju[place]os, pn Incoming Cardio Results From Cpacs/Ge - 05/23/2019 5:15 PM EDT [facility] Vascular Transcranial Procedure Patient Name NATHANAEL Date of Study 05/23/2019 SULY Farmer Date of 1960 Gender Female Age 58 year(s) Race Room Number 0523 Corporate ID [id number] # Patient Acct [id number] # MR # [id number] Seconds Grader Carole Hooks RVT, RDMS Interpreting Gunnar Morgan Physician Referring Referring Physician SANDRA LOCK STRAIGHTENER HAND-CYLINDER 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 PULP DRIER Nurse Practitioner Additional Comments CLASSIFICATION OF VASOSPASM MEAN MCA VELOCITY ----- MCA/ICA VELOCITY RATIO ------- INTERPRETATION <120 cm/sec less than 3 ----- Normal, nonspecific elevation or distal MCA spasm >120 cm/sec -- 3 to 6 Mild vasospasm of proximal MCA >160 cm/sec -- 3 to 6 Moderate vasospasm of proximal MCA >200 cm/sec greater than 6 ---- Severe vasospasm of proximal MCA. MEAN BASILAR ARTERY VELOCITY------- INTERPRETATION >60 cm/sec Mild BA vasospasm >90 cm/sec Moderate BA vasospasm >120 cm/sec Severe BA vasospasm. Procedure Type of Study: Cerebral: Transcranial. Indications for Study:Subarachnoid hemorrhage. Patient Status:In Patient. Conclusions Summary Normal bilateral transcranial Doppler. Signature Findings: Right Impression: Left Impression: Right Lindegaard Ratio = 2.93 Left Lindegaard Ratio = 2.05 MEAN VELOCITIES: MEAN VELOCITIES: Transtemporal Approach Transtemporal Approach Proximal MCA: 91.2 Proximal MCA: 68.9 Mid MCA: 68.1 Mid MCA: 57 Distal MCA: 58.5 Distal MCA: 62.8 Proximal AMAIRANI: 70.5 Proximal AMAIRANI: 85.1 Mid AMAIRANI: 83.9 Mid AMAIRANI: 105 CARTON WAXING 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: 32.3 CARTON WAXING 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: 22.7 T ICA: 40.4 T ICA: 37.7 Submandibular Approach Submandibular Approach D ICA: 31.2 D ICA: 31.2 Transorbital Approach Transorbital Approach Siphon: 38.5 Siphon: 34.3 Transforamenal Approach Transforamenal Approach Vertebral: 30.8 Vertebral: 29.6 Risk Factors History + + +-------- + !Diagnosis !Date !Comments! + + +-------- + !Cerebrovascular disease !05/22/2019!SAH ! + + +-------- + - The patient's risk factor(s) include: dyslipidemia and arterial hypertension. Velocities are measured in cm/s ; Diameters are measured in cm Right Transcranial Duplex Measurements Right Transforamenal Approach + +-------+- ------+--------+------ -+-------+--------+--- --------- + !Location !PSV !EDV !Vmean !RI !PI !Depth !Direction ! + +-------+- ------+--------+------ -+-------+--------+--- --------- + !Basilar !56.2 !18.9 !31.33 !0.66 !0.99 ! ! ! + +-------+- ------+--------+------ -+-------+--------+--- --------- + Left Transcranial Duplex Measurements Left Transforamenal Approach + +-------+- ------+--------+------ -+-------+--------+--- --------- + !Location !PSV !EDV !Vmean !RI !PI !Depth !Direction ! + +-------+- ------+--------+------ -+-------+--------+--- --------- + !Basilar !56.2 !18.9 !31.33 !0.66 !0.99 ! ! ! + +-------+- ------+--------+------ -+-------+--------+--- --------- + [facility] Vascular Transcranial Procedure Patient Name NATHANAEL Date of Study 05/23/2019 SULY Farmer Date of 1960 Gender Female Age 58 year(s) Race Room Number 0523 Corporate ID [id number] # Patient Acct [id number] # MR # [id number] Seconds Grader Carole Hooks RVT, [facility] Interpreting Gunnar Morgan Physician Referring Referring Physician SANDRA LOCK APRN-NIKITA Nurse Practitioner Additional Comments CLASSIFICATION OF VASOSPASM MEAN MCA VELOCITY ----- MCA/ICA VELOCITY RATIO ------- INTERPRETATION <120 cm/sec less than 3 ----- Normal, nonspecific elevation or distal MCA spasm >120 cm/sec -- 3 to 6 Mild vasospasm of proximal MCA >160 cm/sec -- 3 to 6 Moderate vasospasm of proximal MCA >200 cm/sec greater than 6 ---- Severe vasospasm of proximal MCA. MEAN BASILAR ARTERY VELOCITY------- INTERPRETATION >60 cm/sec Mild BA vasospasm >90 cm/sec Moderate BA vasospasm >120 cm/sec Severe BA vasospasm. Procedure Type of Study: Cerebral: Transcranial. Indications for Study:Subarachnoid hemorrhage. Patient Status:In Patient. Conclusions Summary Normal bilateral transcranial Doppler. Signature Findings: Right Impression: Left Impression: Right Lindegaard Ratio = 2.93 Left Lindegaard Ratio = 2.05 MEAN VELOCITIES: MEAN VELOCITIES: Transtemporal Approach Transtemporal Approach Proximal MCA: 91.2 Proximal MCA: 68.9 Mid MCA: 68.1 Mid MCA: 57 Distal MCA: 58.5 Distal MCA: 62.8 Proximal AMAIRANI: 70.5 Proximal AMAIRANI: 85.1 Mid AMAIRANI: 83.9 Mid AMAIRANI: 105 CARTON WAXING 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: 32.3 CARTON WAXING 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: 22.7 T ICA: 40.4 T ICA: 37.7 Submandibular Approach Submandibular Approach D ICA: 31.2 D ICA: 31.2 Transorbital Approach Transorbital Approach Siphon: 38.5 Siphon: 34.3 Transforamenal Approach Transforamenal Approach Vertebral: 30.8 Vertebral: 29.6 Risk Factors History + + +--------+ !Diagnosis !Date !Comments! + + +--------+ !Cerebrovascular disease !05/22/2019!SAH ! + + +--------+ - The patient's risk factor(s) include: dyslipidemia and arterial hypertension. Velocities are measured in cm/s ; Diameters are measured in cm Right Transcranial Duplex Measurements Right Transforamenal Approach + +-------+- ------+--------+------ -+-------+--------+--- ---------+ !Location !PSV !EDV !Vmean !RI !PI !Depth !Direction ! + +-------+- ------+--------+------ -+-------+--------+--- ---------+ !Basilar !56.2 !18.9 !31.33 !0.66 !0.99 ! ! ! + +-------+- ------+--------+------ -+-------+--------+--- ---------+ Left Transcranial Duplex Measurements Left Transforamenal Approach + +-------+- ------+--------+------ -+-------+--------+--- ---------+ !Location !PSV !EDV !Vmean !RI !PI !Depth !Direction ! + +-------+- ------+--------+------ -+-------+--------+--- ---------+ !Basilar !56.2 !18.9 !31.33 !0.66 !0.99 ! ! ! + +-------+- ------+--------+------ -+-------+--------+--- ---------+ [facility] [place] [place] CBC AUTO DIFFon 05-22-2019 Basophils (Bld) [#/Vol] 0.1 103/ul Normal 0.0-0.1 [facility] Comment on above: Performed By: #### C BC #### [facility] [address] [place] [address] Piotr Marilee Basophils/100 WBC (Bld) 0.6 % Normal 0.2-2.0 [facility] Comment on above: Performed By: #### C BC #### [facility] [address] [place], [place] [address] Piotr Marilee Eosinophils (Bld) [#/Vol] 0.2 103/ul Normal 0.0-0.7 [facility] Comment on above: Performed By: #### C BC #### [facility] [address] [place] [address] Piotr Marilee Eosinophils/100 WBC (Bld) 1.5 % Normal 0.9-7.0 [facility] Comment on above: Performed By: #### C BC #### [facility] [address] [place] [address] Piotrelías Hunt Erythrocyte distribution width (RBC) [Ratio] 13.2 % Normal 11.0-15.0 [facility] Comment on above: Performed By: #### C BC #### [facility] [address] [place] [address] Piotr Marilee Hematocrit (Bld) [Volume fraction] 47.0 % Normal 36.0-48.0 [facility] Comment on above: Performed By: #### C BC #### [facility] [address] [place] [address] Piotr Marilee Hemoglobin (Bld) [Mass/Vol] 15.5 g/dL Normal 12.0-16.0 [facility] Comment on above: Performed By: #### C BC #### [facility] [address] [place] [address] Piotr Marilee IG # 0.10 10e3/ul Critically high 0.00-0.[address] [facility] Comment on above: Performed By: #### C BC #### [facility] [address] [place] [address] Piotr Marilee IG % 0.8 % Critically high 0.0-0.5 [facility] Comment on above: Performed By: #### C BC #### [facility] [address] [place] [address] Piotr Marilee Lymphocytes (Bld) [#/Vol] 3.3 103/ul Normal 1.2-3.8 [facility] Comment on above: Performed By: #### C BC #### [facility] [address] [place] [address] Piotr Marilee Lymphocytes/100 WBC (Bld) 25.7 % Normal 20.5-60.0 [facility] Comment on above: Performed By: #### C BC #### [facility] [address] [place] [address] Piotr Marilee MANUAL DIFF REQ NO Normal [facility] Comment on above: Performed By: #### C BC #### [facility] [address] [place], [place] [id number] Piotr Hunt MCH (RBC) [Entitic mass] 29.5 pg Normal 26.7-34.0 [facility] Comment on above: Performed By: #### C BC #### [facility] [address] [place], [place] [phone] Piotr Hunt MCHC (RBC) [Mass/Vol] 33.0 g/dL Normal 29.9-35.2 [facility] Comment on above: Performed By: #### C BC #### [facility] [address] [place], [place] [phone] Piotr Hunt MCV (RBC) [Entitic vol] 89.5 fL Normal 81.0-99.0 [facility] Comment on above: Performed By: #### C BC #### [facility] [address] [place], [place] [phone] Piotr Marilee Monocytes (Bld) [#/Vol] 1.0 103/ul Critically high 0.3-0.8 [facility] Comment on above: Performed By: #### C BC #### [facility] [address] [place], [place] [phone] Piotr Hunt Monocytes/100 WBC (Bld) 7.5 % Normal 1.7-12.0 [facility] Comment on above: Performed By: #### C BC #### [facility] [address] [place], [place] [phone] Piotr Marilee Neutrophils (Bld) [#/Vol] 8.1 103/ul Critically high 1.4-6.5 [facility] Comment on above: Performed By: #### C BC #### [facility] [address] [place], [place] [phone] Piotr Marilee Neutrophils/100 WBC (Bld) 63.9 % Normal 43.0-75.0 [facility] Comment on above: Performed By: #### C BC #### [facility] [address] [place], [place] [phone] Piotr Marilee Platelet mean volume (Bld) [Entitic vol] 9.3 fL Critically low 9.5-13.5 [facility] Comment on above: Performed By: #### C BC #### [facility] [address] [place] [address] Piotr Hunt Platelets (Bld) [#/Vol] 319 103/ul Normal 150-450 [facility] Comment on above: Performed By: #### C BC #### [facility] [address] [place] [address] Piotr Hunt RBC (Bld) [#/Vol] 5.25 106/ul Normal 4.20-5.40 [facility] Comment on above: Performed By: #### C BC #### [facility] [address] [place] [address] Piotr Hunt WBC (Bld) [#/Vol] 12.7 103/ul Critically high 4.0-11.0 [facility] Comment on above: Performed By: #### C BC #### [facility] [address] [place] [address] HEAD WO CONon 05-22-2019 CT HEAD WO CON EXAMINATION: CT HEAD WO CON HISTORY: Transient cerebral ischemia. The left side of the body has been going numb on and off for 2 days. Frontal headache. COMPARISON: None. TECHNIQUE: CT examination of the head without IV contrast. Coronal and sagittal multiplanar reconstructions were done. Dose reduction techniques were achieved by using automated exposure control and/or adjustment of mA and/or kV according to patient size and/or use of iterative reconstruction technique. FINDINGS: There is linear opacity in at least one of the right frontal convexity sulci suggesting subarachnoid hemorrhage. This is on axial slice 37 and sagittal slice 36. There appears also to be a tiny opacity in the left frontal pole at the convexity on axial slice 30 and sagittal slice 32 also possibly due to a subarachnoid hemorrhage. There may be a tiny acute subdural hematoma at the operculum on axial slice 21. This is 3 mm in thickness. The underlying brain appears normal. The basal cisterns appear normal. The lateral, third and fourth ventricles are normal in size, shape and position. There is no mass effect or midline shift. The major white matter tracts are symmetric. Varner-white matter differentiation is normal. There is no evidence of infarction or mass. The corpus callosum is intact. The pituitary, suprasellar cistern and optic chiasm appear normal. IMPRESSION: Findings suggest convexity subarachnoid hemorrhage. The differential should include occult trauma, ruptured mycotic aneurysm, dural arteriovenous malformation, dural venous sinus thrombosis or cortical vein thrombosis, reversible cerebral vasoconstriction syndrome, posterior reversible encephalopathy syndrome and vasculitis. There also appears to be a 3 mm right operculum subdural hematoma. There is no evidence of cortical infarction or mass. No midline shift is seen. MRI is recommended for further evaluation. I gave the report to Falguni DOLAN in the ER at 12:35 PM Eastern time on May 22, 2019. Normal [facility] CTA HEAD NECK W CONTRASTon 0 05-22-2019 CTA HEAD NECK W CONTRAST EXAMINATION: CTA OF THE HEAD AND NECK WITH CONTRAST 05/22/2019 6:56 pm: TECHNIQUE: CTA of the head and neck was performed with the administration of intravenous contrast. Multiplanar reformatted images are provided for review. MIP images are provided for review. Stenosis of the internal carotid arteries measured using NASCET criteria. Dose modulation, iterative reconstruction, and/or weight based adjustment of the mA/kV was utilized to reduce the radiation dose to as low as reasonably achievable. COMPARISON: None. HISTORY: ORDERING SYSTEM PROVIDED HISTORY: SAH TECHNOLOGIST PROVIDED HISTORY: SAH Reason for Exam: SAH Acuity: Acute Type of Exam: Initial FINDINGS: CTA NECK: AORTIC ARCH/ARCH VESSELS: No dissection or arterial injury. No significant stenosis of the brachiocephalic or subclavian arteries. CAROTID ARTERIES: No dissection, arterial injury, or hemodynamically significant stenosis by NASCET criteria. VERTEBRAL ARTERIES: No dissection, arterial injury, or significant stenosis. SOFT TISSUES: The lung apices are clear. No cervical or superior mediastinal lymphadenopathy. The larynx and pharynx are unremarkable. No acute abnormality of the salivary and thyroid glands. BONES: Degenerative changes of the spine are present. CTA HEAD: ANTERIOR CIRCULATION: No significant stenosis of the intracranial internal carotid, anterior cerebral, or middle cerebral arteries. No aneurysm. Bilateral posterior communicating arteries are present with probable origins of both posterior cerebral arteries.. POSTERIOR CIRCULATION: No significant stenosis of the vertebral, basilar, or posterior cerebral arteries. No aneurysm. OTHER: No dural venous sinus thrombosis on this non-dedicated study. BRAIN: See separately dictated noncontrast head CT report. IMPRESSION: No cerebral aneurysm or vascular malformation visualized. No flow limiting stenosis or large vessel occlusion detected within the head or neck. Interpreted by: John Jordan MD Signed by: John Jordan MD 05/22/19 Final result Normal [facility], [facility] Incoming Radiant Results From Powerscribe/Pacs - 05/22/2019 8:26 PM EDT EXAMINATION: CTA OF THE HEAD AND NECK WITH CONTRAST 05/22/2019 6:56 pm: TECHNIQUE: CTA of the head and neck was performed with the administration of intravenous contrast. Multiplanar reformatted images are provided for review. MIP images are provided for review. Stenosis of the internal carotid arteries measured using NASCET criteria. Dose modulation, iterative reconstruction, and/or weight based adjustment of the mA/kV was utilized to reduce the radiation dose to as low as reasonably achievable. COMPARISON: None. HISTORY: ORDERING SYSTEM PROVIDED HISTORY: SAH TECHNOLOGIST PROVIDED HISTORY: SAH Reason for Exam: SAH Acuity: Acute Type of Exam: Initial FINDINGS: CTA NECK: AORTIC ARCH/ARCH VESSELS: No dissection or arterial injury. No significant stenosis of the brachiocephalic or subclavian arteries. CAROTID ARTERIES: No dissection, arterial injury, or hemodynamically significant stenosis by NASCET criteria. VERTEBRAL ARTERIES: No dissection, arterial injury, or significant stenosis. SOFT TISSUES: The lung apices are clear. No cervical or superior mediastinal lymphadenopathy. The larynx and pharynx are unremarkable. No acute abnormality of the salivary and thyroid glands. BONES: Degenerative changes of the spine are present. CTA HEAD: ANTERIOR CIRCULATION: No significant stenosis of the intracranial internal carotid, anterior cerebral, or middle cerebral arteries. No aneurysm. Bilateral posterior communicating arteries are present with probable origins of both posterior cerebral arteries.. POSTERIOR CIRCULATION: No significant stenosis of the vertebral, basilar, or posterior cerebral arteries. No aneurysm. OTHER: No dural venous sinus thrombosis on this non-dedicated study. BRAIN: See separately dictated noncontrast head CT report. IMPRESSION: No cerebral aneurysm or vascular malformation visualized. No flow limiting stenosis or large vessel occlusion detected within the head or neck. [facility] [place], [place] EXAMINATION: CTA OF THE HEAD AND NECK WITH CONTRAST 05/22/2019 6:56 pm: TECHNIQUE: CTA of the head and neck was performed with the administration of intravenous contrast. Multiplanar reformatted images are provided for review. MIP images are provided for review. Stenosis of the internal carotid arteries measured using NASCET criteria. Dose modulation, iterative reconstruction, and/or weight based adjustment of the mA/kV was utilized to reduce the radiation dose to as low as reasonably achievable. COMPARISON: None. HISTORY: ORDERING SYSTEM PROVIDED HISTORY: SAH TECHNOLOGIST PROVIDED HISTORY: SAH Reason for Exam: SAH Acuity: Acute Type of Exam: Initial FINDINGS: CTA NECK: AORTIC ARCH/ARCH VESSELS: No dissection or arterial injury. No significant stenosis of the brachiocephalic or subclavian arteries. CAROTID ARTERIES: No dissection, arterial injury, or hemodynamically significant stenosis by NASCET criteria. VERTEBRAL ARTERIES: No dissection, arterial injury, or significant stenosis. SOFT TISSUES: The lung apices are clear. No cervical or superior mediastinal lymphadenopathy. The larynx and pharynx are unremarkable. No acute abnormality of the salivary and thyroid glands. BONES: Degenerative changes of the spine are present. CTA HEAD: ANTERIOR CIRCULATION: No significant stenosis of the intracranial internal carotid, anterior cerebral, or middle cerebral arteries. No aneurysm. Bilateral posterior communicating arteries are present with probable origins of both posterior cerebral arteries.. POSTERIOR CIRCULATION: No significant stenosis of the vertebral, basilar, or posterior cerebral arteries. No aneurysm. OTHER: No dural venous sinus thrombosis on this non-dedicated study. BRAIN: See separately dictated noncontrast head CT report. [place], [place] No cerebral aneurysm or vascular malformation visualized. No flow limiting stenosis or large vessel occlusion detected within the head or neck. [place] DRUG SCREEN MULTI URINEon Amphetamine Screen, Ur Negative NEGATIVE [place] Comment on above: (Positive cutoff 1000 ng/mL) Barbiturate Screen, Ur Negative NEGATIVE [place] Comment on above: (Positive cutoff 200 ng/mL) Benzodiazepine Screen, Urine Negative NEGATIVE [place] Comment on above: (Positive cutoff 200 ng/mL) Buprenorphine Urine NOT REPORTED NEGATIVE [place], [place] Cannabinoid Scrn, Ur Negative NEGATIVE [place], [place] Comment on above: (Positive cutoff 50 ng/mL) Cocaine Metabolite, Urine Negative NEGATIVE [place], [place] Comment on above: (Positive cutoff 300 ng/mL) MDMA, Urine NOT REPORTED NEGATIVE [place], [place] Methadone Screen, Urine Negative NEGATIVE [place], [place] Comment on above: (Positive cutoff 300 ng/mL) Methamphetamine, Urine NOT REPORTED NEGATIVE [place] Opiates, Urine Negative NEGATIVE [place], [place] Comment on above: (Positive cutoff 300 ng/mL) Oxycodone Screen, Ur Negative NEGATIVE [place], [place] Comment on above: (Positive cutoff 100 ng/mL) Phencyclidine, Urine Negative NEGATIVE [place], [place] Comment on above: (Positive cutoff 25 ng/mL) Propoxyphene, Urine NOT REPORTED NEGATIVE [place], [place] Test Information Assay provides medic al screening only. The absence of expected drug(s) and/or metabolite(s) may indicate diluted or adulterated urine, limitations of testing or timing of collection. [place], [place] Comment on above: Testing for legal pu rposes should be confirmed by another method. To request confirmation of test result, please call the lab within 7 days of sample submission. Tricyclic Antidepressants, Urine NOT REPORTED NEGATIVE [place], [place] Drug Scr, Abuse, Uron 2019 Buprenorphrine, Ur NOT REPORTED Normal NEG [facility] Comment on above: Performed By: #### D AU #### [email or web address] [address] [place] [address] [phone] Audio Visual Specialist: Zaki Humphries MD MDMA, Urine NOT REPORTED Normal NEG [facility] Comment on above: Performed By: #### D AU #### [email or web address] [address] [place] [address] [phone] Audio Visual Specialist: Zaki Humphries MD Methamphetamine, Ur NOT REPORTED Normal NEG [facility] Comment on above: Performed By: #### D AU #### [email or web address] [address] [place] [address] [phone] Audio Visual Specialist: Zaki Humphries MD Propoxyphene,Urine NOT REPORTED Normal NEG [facility] Comment on above: Performed By: #### D AU #### [email or web address] [address] [place] [address] [phone] Audio Visual Specialist: Zaki Humphries MD Tricyclic antidepressants Screen Ql (U) NOT REPORTED Normal NEG [facility] Comment on above: Performed By: #### D AU #### [id number] [place], [place] [phone] Audio Visual Specialist: Zaki Humphries MD ER URINE PROFILEon 0 Bilirubin [Mass/Vol] Negative Normal NEGATIVE [facility] Comment on above: Performed By: #### E RUR ####[facility] [address] [place], [place] [id number] Marilee BLOOD Negative Normal NEGATIVE [facility] Comment on above: Performed By: #### E RUR ####[facility] [address] [place] [address] Marilee Clarity (U) CLEAR Normal [facility] Comment on above: Performed By: #### E RUR ####[facility] [address] [place], [place] [phone] Marilee Color (U) LT. YELLOW Normal YELLOW [facility] Comment on above: Performed By: #### E RUR ####[facility] [address] [place] [address] Marilee ERUAHD A micrscopic examination will be performed if indicated. Normal [facility] Comment on above: Performed By: #### E RUR ####[facility] [address] [place] [address] 69155Qovtpd Marilee Glucose [Mass/Vol] Negative Normal NEGATIVE The [facility] Comment on above: Performed By: #### E RUR ####[facility] [address] [place], [place] [phone] Marilee Ketones Ql (U) Negative Normal NEGATIVE [facility] Comment on above: Performed By: #### E RUR ####[facility] [address] [place], [place] [phone] Marilee Nitrite Ql (U) Negative Normal NEGATIVE [facility] Comment on above: Performed By: #### E RUR ####[facility] [address] [place] [address] Marilee pH (Bld) 6.0 Normal 5-9 [facility] Comment on above: Performed By: #### E RUR ####[facility] [address] [place], [place] [address]QgkwezPiotr Hunt Protein (U) [Mass/Vol] Negative Normal [facility] Comment on above: Performed By: #### E RUR ####[facility] [address] [place], [place] [address]BiimoyPiotr Hunt SPEC GRAVITY 1.010 Normal 1.005-<=1.025 [facility] Comment on above: Performed By: #### E RUR ####[facility] [address] [place], [place] [address]VlcabvPiotr Hunt UR MICRO IND NOT INDICATED Normal [facility] Comment on above: Performed By: #### E RUR ####[facility] [address] [place], [place] [address]BlvllxPiotr Hunt Urobilinogen Qn (U) 0.2 EU/dl Normal [facility] Comment on above: Performed By: #### E RUR ####[facility] [address] [place], [place] [address]IfniyxPiotr Hunt WBC (Bld) [#/Vol] Negative Normal NEGATIVE [facility] Comment on above: Performed By: #### E RUR ####[facility] [address] [place], [place] [address]XngwdcPiotr Hunt LACTATE/LACTIC ACIDon 2019 Lactate [Moles/Vol] 0.9 mmol/L Normal 0.7-2.0 [facility] Comment on above: Performed By: #### L ACT ####[facility] [address] [place] [id number] Hunt MRI BRAIN W WO CONTRASTon MRI BRAIN W WO CONTRAST EXAMINATION: MRI OF THE BRAIN WITHOUT AND WITH CONTRAST 05/22/2019 6:38 pm TECHNIQUE: Multiplanar multisequence MRI of the head/brain was performed without and with the administration of intravenous contrast. COMPARISON: May 22, 2019, [address] brain. HISTORY: ORDERING SYSTEM PROVIDED HISTORY: SAH, SDH TECHNOLOGIST PROVIDED HISTORY: SAH, SDH FINDINGS: INTRACRANIAL STRUCTURES/VENTRICLES: There is no acute infarct. No mass effect or midline shift. Curvilinear T2 lengthening within the central sulcus on the right near the vertex. Minute extra-axial hemorrhage along the convexity on the right seen on CT is not appreciated. The ventricles and sulci are normal in size and configuration. The sellar/suprasellar regions appear unremarkable. The normal signal voids within the major intracranial vessels appear maintained. No abnormal focus of enhancement is seen within the brain. At least 4 foci within the centrum semiovale on the left measuring 3-4 mm demonstrated T2 density. ORBITS: The visualized portion of the orbits demonstrate no acute abnormality. SINUSES: The visualized paranasal sinuses and mastoid air cells are well aerated. BONES/SOFT TISSUES: The bone marrow signal intensity appears normal. The soft tissues demonstrate no acute abnormality. Fluid signal within the mastoid air cells bilaterally. IMPRESSION: Subarachnoid hemorrhage central sulcus on the right. Small extra-axial hemorrhage on the right seen on CT today is less conspicuous. At least 4 white matter foci within the centrum semiovale on the left of uncertain significance. Follow-up recommended. Bilateral mastoid effusions. RECOMMENDATIONS: The findings were sent to the Radiology Results Communication Center at 7:52 pm on 05/22/2019to be communicated to a licensed caregiver. Case discussed with Dr. Iqbal at 7:56 p.m. Interpreted by: Filiberto Chamberlain MD Signed by: Filiberto Chamberlain MD 05/22/19 Final result Normal [facility] Juancarlos, Mhpn Incoming Radiant Results From cVidya/Sqoot - 05/22/2019 8:06 PM EDT EXAMINATION: MRI OF THE BRAIN WITHOUT AND WITH CONTRAST 05/22/2019 6:38 pm TECHNIQUE: Multiplanar multisequence MRI of the head/brain was performed without and with the administration of intravenous contrast. COMPARISON: May 22, 2019, [address] brain. HISTORY: ORDERING SYSTEM PROVIDED HISTORY: SAH, SDH TECHNOLOGIST PROVIDED HISTORY: SAH, SDH FINDINGS: INTRACRANIAL STRUCTURES/VENTRICLES: There is no acute infarct. No mass effect or midline shift. Curvilinear T2 lengthening within the central sulcus on the right near the vertex. Minute extra-axial hemorrhage along the convexity on the right seen on CT is not appreciated. The ventricles and sulci are normal in size and configuration. The sellar/suprasellar regions appear unremarkable. The normal signal voids within the major intracranial vessels appear maintained. No abnormal focus of enhancement is seen within the brain. At least 4 foci within the centrum semiovale on the left measuring 3-4 mm demonstrated T2 density. ORBITS: The visualized portion of the orbits demonstrate no acute abnormality. SINUSES: The visualized paranasal sinuses and mastoid air cells are well aerated. BONES/SOFT TISSUES: The bone marrow signal intensity appears normal. The soft tissues demonstrate no acute abnormality. Fluid signal within the mastoid air cells bilaterally. IMPRESSION: Subarachnoid hemorrhage central sulcus on the right. Small extra-axial hemorrhage on the right seen on CT today is less conspicuous. At least 4 white matter foci within the centrum semiovale on the left of uncertain significance. Follow-up recommended. Bilateral mastoid effusions. RECOMMENDATIONS: The findings were sent to the Radiology Results Communication Center at 7:52 pm on 05/22/2019to be communicated to a licensed caregiver. Case discussed with Dr. Iqbal at 7:56 p.m. [place] Subarachnoid hemorrhage central sulcus on the right. Small extra-axial hemorrhage on the right seen on CT today is less conspicuous. At least 4 white matter foci within the centrum semiovale on the left of uncertain significance. Follow-up recommended. Bilateral mastoid effusions. RECOMMENDATIONS: The findings were sent to the Radiology Results Communication Center at 7:52 pm on 05/22/2019to be communicated to a licensed caregiver. Case discussed with Dr. Iqbal at 7:56 p.m. [place] EXAMINATION: MRI OF THE BRAIN WITHOUT AND WITH CONTRAST 05/22/2019 6:38 pm TECHNIQUE: Multiplanar multisequence MRI of the head/brain was performed without and with the administration of intravenous contrast. COMPARISON: May 22, 2019, [address] brain. HISTORY: ORDERING SYSTEM PROVIDED HISTORY: SAH, SDH TECHNOLOGIST PROVIDED HISTORY: SAH, SDH FINDINGS: INTRACRANIAL STRUCTURES/VENTRICLES: There is no acute infarct. No mass effect or midline shift. Curvilinear T2 lengthening within the central sulcus on the right near the vertex. Minute extra-axial hemorrhage along the convexity on the right seen on CT is not appreciated. The ventricles and sulci are normal in size and configuration. The sellar/suprasellar regions appear unremarkable. The normal signal voids within the major intracranial vessels appear maintained. No abnormal focus of enhancement is seen within the brain. At least 4 foci within the centrum semiovale on the left measuring 3-4 mm demonstrated T2 density. ORBITS: The visualized portion of the orbits demonstrate no acute abnormality. SINUSES: The visualized paranasal sinuses and mastoid air cells are well aerated. BONES/SOFT TISSUES: The bone marrow signal intensity appears normal. The soft tissues demonstrate no acute abnormality. Fluid signal within the mastoid air cells bilaterally. [facility], [place] MRSA, DNA, Nasalon 0 Specimen Description .NASAL SWAB Normal [facility] Comment on above: Performed By: #### M RSANO ####[facility] [place] [address] lab Director: Zaki Humphries MD PROF 14(COMP METB)on 020 Albumin [Mass/Vol] 3.8 g/dL Normal 3.5-5.0 [facility] Comment on above: Performed By: #### C MP, TROP, TSH #### [facility] [address] [place], [place] [address] Piotr Marilee Albumin/Globulin [Mass ratio] 0.9 {ratio} Normal [facility] Comment on above: Performed By: #### C MP, TROP, TSH #### [facility] [address] [place], [place] [address] Piotr Marilee ALP [Catalytic activity/Vol] 59 U/L Normal 38-126 [facility] Comment on above: Performed By: #### C MP, TROP, TSH #### [facility] [address] [place], [place] [address] Piotr Marilee ALT [Catalytic activity/Vol] 64 U/L Critically high 9-52 [facility] Comment on above: Performed By: #### C MP, TROP, TSH #### [facility] [address] [place], [place] [address] Piotr Marilee Anion gap [Moles/Vol] 15.5 mmol/L Normal [facility] Comment on above: Performed By: #### C MP, TROP, TSH #### [facility] [address] [place] [id number] Piotr Marilee AST [Catalytic activity/Vol] 33 U/L Normal 14-36 [facility] Comment on above: Performed By: #### C MP, TROP, TSH #### [facility] [address] [place] [id number] Piotr Marilee Bilirubin Ql (U) 0.3 mg/dL Normal 0.2-1.3 The [facility] Comment on above: Performed By: #### C MP, TROP, TSH #### [facility] [address] [place] [address] Piotr Marilee Calcium [Mass/Vol] 9.7 mg/dL Normal 8.4-10.2 The [facility] Comment on above: Performed By: #### C MP, TROP, TSH #### [facility] [address] [place] [address] Piotr Marilee Chloride [Moles/Vol] 100 mmol/L Normal 98-107 [facility] Comment on above: Performed By: #### C MP, TROP, TSH #### [facility] [address] [place] [address] Piotr Marilee CO2 [Moles/Vol] 27.2 mmol/L Normal 22.0-30.0 [facility] Comment on above: Performed By: #### C MP, TROP, TSH #### [facility] [address] [place], [place] [phone] Piotr Marilee Creatinine [Mass/Vol] 0.80 mg/dL Normal 0.52-1.04 [facility] Comment on above: Performed By: #### C MP, TROP, TSH #### [facility] [address] [place] [id number] Piotr Marilee EGFR-AF WALLISIAN >60 Normal >=60 [facility] Comment on above: Performed By: #### C MP, TROP, TSH #### [facility] [address] [place] [id number] Piotr Marilee EGFR-NON AF WALLISIAN >60 Normal >=60 [facility] Comment on above: Performed By: #### C MP, TROP, TSH #### [facility] [address] [place] [id number] Piotr Marilee Globulin (S) [Mass/Vol] 4.2 g/dL Normal [facility] Comment on above: Performed By: #### C ANGELA WHITMAN, TSH #### [facility] [address] [place] [id number] Piotr Marilee Glucose [Mass/Vol] 97 mg/dL Normal 74-106 The [facility] Comment on above: Performed By: #### C ANGELA WHITMAN, TSH #### [facility] [address] [place] [address] Piotr Marilee Potassium [Moles/Vol] 3.7 mmol/L Normal 3.4-5.0 [facility] Comment on above: Performed By: #### C ANGELA WHITMAN, TSH #### [facility] [address] [place] [address] Piotr Marilee Protein [Mass/Vol] 8.0 g/dL Normal 6.1-8.2 The [facility] Comment on above: Performed By: #### C ANGELA WHITMAN, TSH #### [facility] [address] [place] [address] Piotr Marilee Sodium [Moles/Vol] 139 mmol/L Normal 137-145 The [facility] Comment on above: Performed By: #### C ANGELA WHITMAN, TSH #### [facility] [address] [place] [address] Piotr Marilee Urea nitrogen [Mass/Vol] 20.0 mg/dL Critically high 7.0-17.0 [facility] Comment on above: Performed By: #### C J CARLOS TROP, TSH #### [facility] [address] [place] [address] Piotr Marilee Urea nitrogen/Creatinine [Mass ratio] 25.0 mg/mg Normal [facility] Comment on above: Performed By: #### C J CARLOS TROP, TSH #### [facility] [address] [place], [place] [phone] Piotr Marilee PROTIMEon 05-22-2019 INR Coag (PPP) [Relative time] 1.07 {INR} Normal [facility] Comment on above: Performed By: #### P T, PTT #### [facility] [address] [place], [place] [address] Piotr Marilee PT Coag (PPP) [Time] SEE BELOW Normal [facility] Comment on above: Result Comment: DUONG RED INR: 2.0 - 3.0 CONDITIONS NOT LISTED BELOW 2.5 - 3.5 FOR PROSTHETIC HEART VALVE REPLACEMENT 2.5 - 3.5 RECURRENT THROMBOSIS Performed By: #### P T, PTT #### [facility] [address] [place] [id number] Piotr Marilee PT Coag (PPP) [Time] 11.1 s Normal 9.0-11.6 [facility] Comment on above: Performed By: #### P T, PTT #### [facility] [address] [place], [place] [phone] Piotr Marilee PT Coag (PPP) [Time] PLEASE NOTE: NORMAL RANGE CHANGE 12-01-2013 DUE TO REAGENT LOT CHANGE Normal [facility] Comment on above: Performed By: #### P T, PTT #### [facility] [address] [place], [place] [phone] Piotr Marilee PTTon 05-22-2019 aPTT Coag (Bld) [Time] PLEASE NOTE: NORMAL RANGE CHANGE 02-07-2015 DUE TO REAGENT LOT CHANGE Normal [facility] Comment on above: Performed By: #### P T, PTT #### [facility] [address] [place] [address] Piotr Marilee aPTT Coag (Bld) [Time] 23.6 s Normal 22.3-36.2 [facility] Comment on above: Performed By: #### P T, PTT #### [facility] [address] [place], [place] [phone] Piotr Marilee TROPONIN - Ion 05-22-2019 Troponin I.cardiac [Mass/Vol] ng/mL Normal <=0.034 [facility] Comment on above: Performed By: #### C MP, TROP, TSH #### [facility] [address] [place], [place] [phone] Piotr Marilee Troponin I.cardiac [Mass/Vol] SEE BELOW Normal [facility] Comment on above: Result Comment: <0.0 34 ng/ml NEGATIVE 0.034-0.119 INDETERMINATE 0.120 AMI CUT OFF Performed By: #### C MP, TROP, TSH #### [facility] [address] [place], [place] [address] Piotr Hunt TSHon 05-22-2019 TSH Qn 3.019 uIU/mL Normal 0.470-4.[address] [facility] Comment on above: Performed By: #### C MP, TROP, TSH ####[facility] [address] [place], [place] [address]Yniqiz Marilee TSH Qn SEE BELOW Normal [facility] Comment on above: Result Comment: <0.3 4 UIU/ml HYPERTHYROID 0.34-5.60 UIU/ml EUTHYROID >5.60 UIU/ml HYPOTHYROID Performed By: #### C MP, TROP, TSH ####[facility] [address] XR CHEST 2 Von 05-22-2019 XR CHEST 2 V EXAM: XR CHEST 2 V HISTORY: COUGH COMPARISON: None. TECHNIQUE: 2 views of the chest are submitted for review. FINDINGS: The heart size is normal. Lungs are clear. No focal consolidation, pneumothorax or pleural effusion is seen. The osseous structures appear unremarkable. IMPRESSION: No radiographic evidence for acute cardiopulmonary disease. Normal [facility] CONSULTATIONon 03-28-2019 CONSULTATION CONSULTATION PAIN MANAGEMENT Consultation Date: 03-28-19 HISTORY OF PRESENT ILLNESS: This is a very pleasant 58 year-old female patient who comes to the pain clinic with chronic low back pain and left buttock pain. She rates the low back and left buttock pain a 9/10 which is a constant toothache sensation. Activities that increase the pain are sitting in soft chairs, standing, walking, transitioning, morning time, bending, activity, and sleep. Activities that decrease the pain minimally are sitting on a hard chair, Motrin, and Celebrex. At her last office visit we prescribed the Celebrex as she was on this previously and had great results form this. The patient states the Celebrex is not helpful and she discontinued the Celebrex on her own. She would like to proceed with Motrin 800 [id number] as this is more helpful than the Celebrex. The patient was last seen in the office December 20, 2018 for an office visit and she is here for a three month followup. Since her last office visit she denies any new medical conditions as well as any loss of bowel or bladder, injuries or falls. She would like to improve upon the low back pain in the office today. She has had previous lumbar radiofrequency ablation to the low back in the past and states that this was helpful to her in regards to her low back pain. MEDICATIONS: Please see the patient's paper chart for full list of medication. REVIEW OF SYSTEMS: Negative. PHYSICAL EXAM: VITALS:BP 142/86 with a heart rate of 109, respirations 18. The patient is 5'8 , 98.9 kg. HEENT:Head is atraumatic, normocephalic. Facial symmetry is maintained. NECK:Supple without any lesions. Trachea is midline. HEART:Regular rate with no JVD noted. LUNGS:Normal expansion, with unlabored breathing, no audible wheezing noted. ABDOMEN:Soft, nondistended, and obese. BACK:Range of motion is guarded for flexion, extension, and rotation. Tenderness is noted along the extension, compression, and direct palpation along the lumbar facets. There is positive axial loading to the left and right lumbar facets. Vanessa's is slightly positive as is the compression test. Point tenderness is noted to the left and right lumbar region and the pain extends into the left gluteal region. Thee are no paresthesias as well as paravertebral spasms noted to the lumbar region. EXTREMITIES:No pedal edema is noted to the bilateral lower extremities. There in no bilateral lower extremity deconditioning noted. MUSCULOSKELETAL:Intact with no motor weaknesses to the bilateral lower extremities. Muscle strength 5/5 to the bilateral lower extremities. NEUROLOGICAL:The patient is neurologically intact to the bilateral lower extremities. Patellar reflex 2/2 and Achilles reflex 2/2 are present bilaterally to the lower extremities. Cranial nerves are intact. PSYCHIATRIC:The patient is cooperative, alert and oriented x3, and appropriate for mood with a flat affect. The patient is slightly tearful in the office today. DIAGNOSES: 1. Low back pain. 2. Lumbar spondylosis. 3. Lumbar degenerative disc disease. 4. Lumbar spasms. PLAN: 1. We will discontinue the Celebrex. 2. She would like to proceed in regards to the low back pain. She would like to proceed with the #1 medial branch block to bilateral L3, L4, L5 in the office today. 3. We will add [place] 5/325 mg 1 p.o. b.i.d. p.r.n. pain. She is currently not on a opioid medication at this time. She last utilized tramadol in the past at a previous pain clinic and stated she had gastrointestinal issues as in nausea after taking the tramadol. The patient has been advised of the risks and benefits of the [place] medication. [place]ARRS report is reviewed and no advert or drug seeking behavior is noted. Medication effectiveness and evaluation of possible addiction will assessed on a regular basis by this provider. MIPPS, COMM, and depression scale are all updated yearly and are on the patient's chart for review. 4. The patient will return to the pain clinic after the injection to reevaluate her pain. Dictated by Yris Goins APRN [facility] Signed and Approved by: YRIS GOINS 04/04/2019 17:00:00 Normal [facility] CONSULTATIONon 12-20-2018 CONSULTATION CONSULTATION PAIN MANAGEMENT Consultation Date: 12-20-18 HISTORY OF PRESENT ILLNESS: This is a very pleasant 58 year-old female patient who comes to the pain clinic with low back pain. She rates the low back pain a 0/10 while sitting and in the morning time or transitioning rates the pain an 8/10. The pain is intermittent to the low back. Activities that increase the pain are twisting, pushing, pulling, standing, walking, transitioning, morning time, housework, lifting, stairs, bending, activity, and sleep. Activities that decrease the pain are sitting, Motrin, and Tylenol. On November 30, 2018 the patient had a lumbar epidural steroid epidural injection which afforded the patient 75% relief of her pain and symptoms for two days. The patient does state low back pain in the office today, however, does not present with bilateral radicular pain to the lower extremities in the office today. We discussed the reasoning for the epidural steroid injection as in to decrease the bilateral lower extremity paresthesias and pain. We discussed in the office today that she does have spondylosis to the bilateral lumbar region which would cause a low back pain on a daily basis. She states she is happy with where she is at after states that she does not want to proceed with any further interventional therapy at this time due to the success of the injection. We did discuss #1 medial branch block leading up to radiofrequency ablation to the lumbar in the office today and again, she does not want to proceed with improving upon her pain. The patient has failed kqxy-rvs-kwarstm antiinflammatories as well as Tylenol in regards to her low back pain. She asked if we could place her on a nonsteroidal in the office today. She states she has been on Celebrex 100 mg daily in the past and it was very beneficial to her in regards to musculoskeletal pain. She would like to restart this medication in the office today. She denied any complications after the epidural steroid injection as well as any loss of bowel or bladder, injuries or falls. PHYSICAL EXAM: VITALS:BP 129/72 with a heart rate of 58. The patient is 5'7 , 96 kg. HEENT:Head is atraumatic, normocephalic. Facial symmetry is maintained. NECK:Supple without any lesions. Trachea is midline. HEART:Regular rate with no JVD noted. LUNGS:Normal expansion, with unlabored breathing, no audible wheezing noted. ABDOMEN:Soft, nondistended. BACK:Range of motion is guarded for flexion, extension, and rotation. Tenderness is noted along the extension, compression, and direct palpation along the lumbar facets. Vanessa's is positive as is the compression test. Point tenderness is noted to the bilateral lumbar region with pain that does extend into the bilateral gluteal and bilateral hip. There are no paresthesias as well as paravertebral spasms noted. EXTREMITIES:No pedal edema is noted to the bilateral lower extremities. MUSCULOSKELETAL:Intact with no motor weaknesses to the bilateral lower extremities. NEUROLOGICAL:The patient is neurologically intact to the bilateral lower extremities. Patellar reflex 2/2 and Achilles reflex 2/2 are present bilaterally to the lower extremities. PSYCHIATRIC:The patient is cooperative, alert and oriented x3, and appropriate for mood and affect. DIAGNOSES: 1. Low back pain. 2. Lumbar spondylosis. 3. Lumbar degenerative disc disease. 4. Lumbar spasms. PLAN: 1. In regards to musculoskeletal pain, we will add Celebrex 100 mg 1 p.o. daily with food. 2. I did recommend a #1 medial branch block to the bilateral L3, L4, L5 leading up to radiofrequency ablation in the office today and she declined. She states she will call when she is interested in proceeding with this injection. 3. The patient will followup in the pain clinic in three months or sooner for a medication check and progress check. Dictated by Yris Goins APRN [facility] Signed and Approved by: YRIS GOINS 12/27/2018 15:18:00 Normal [facility] CONSULTATIONon 09-20-2018 CONSULTATION CONSULTATION PAIN MANAGEMENT Consultation Date: 09-20-18 HISTORY OF PRESENT ILLNESS: This is a very pleasant 57 year-old female patient who comes to the pain clinic with low back pain. She rates the low back pain a 1-2/10 which is an intermittent pain to the low back as well as the bilateral lower extremities. Activities that increase the pain are pushing, pulling, standing, walking, evening time, lifting, bending, and weather change. Activities that decrease the pain are sitting, baclofen 10 mg, and trjt-kba-zteerao medication Tylenol and Motrin. On August 31, 2018 the patient had a lumbar epidural steroid injection which afforded the patient 100% relief of her pain and symptoms for several weeks, however, does state that its creeping back up on me very slowly . She asked if she may repeat the lumbar epidural steroid injection in November prior to her son's wedding. We discussed in the office that she may repeat the lumbar epidural steroid injection in November and discussed with her possibly doing lumbar epidural steroid injections every 3-4 months or 3-4 times a year for maintenance. She denied any complications after the lumbar epidural steroid injection as well as any loss of bowel or bladder, injuries or falls. PHYSICAL EXAM: VITALS:BP 168/87 with a heart rate of 57. The patient is 5'8 , 96 kg. HEENT:Head is atraumatic, normocephalic. Facial symmetry is maintained. NECK:Supple without any lesions. Trachea is midline. Neck is bullous. HEART:Regular rate with no JVD noted. LUNGS:Normal expansion, with unlabored breathing, no audible wheezing noted. ABDOMEN:Soft, nondistended, and obese. BACK:Range of motion is within functional limits for flexion, extension, and rotation with moderate pain with axial loading to the lumbar facets. EXTREMITIES:No pedal edema is noted to the bilateral lower extremities. Hypoesthesia and tingling sensation is noted along the L5-S1 nerve root distribution extending below the knee on the bilateral side and terminating in the bilateral foot. MUSCULOSKELETAL:Intact with no motor weaknesses to the bilateral lower extremities. NEUROLOGICAL:Patellar reflex 2/2 and Achilles reflex 2/2 are present bilaterally to the lower extremities. Straight leg raise as well as sit/slump test is positive on the right and left side at 25 degrees with pain radiating to the bilateral feet. PSYCHIATRIC:The patient is cooperative, alert and oriented x3, and appropriate for mood and affect. DIAGNOSES: 1. Lumbar radiculitis. 2. Low back pain. 3. Lumbar degenerative disc disease. 4. Lumbar spasms. PLAN: 1. Authorize and schedule the patient for a lumbar epidural steroid injection at the level of L5-S1 in November. 2. The patient will followup in the pain clinic four weeks after the injection to evaluate her pain. Dictated by Yris Goins APRN [facility] Signed and Approved by: YRIS GOINS 09/20/2018 13:40:00 Normal [facility] CONSULTATIONon 08-17-2018 CONSULTATION CONSULTATION PAIN MANAGEMENT Consultation Date: 08-17-18 CHIEF COMPLAINT: 1. Sacral pain. 2. Low back pain. HISTORY OF PRESENT ILLNESS: Today in the office I saw Suly Huffman. This is a very pleasant 57 year-old female who in the remote past has had a caudal epidural which has afforded the patient 70+ percent improvement in her pain symptomatology. This was on 05-21-17. The pain gradually increased to the point where with her increased activity this spring is having increased pain. She states she has difficulty in doing activities of daily living including her laundry. ADL: Pushing, pulling, lifting, climbing stairs, bending forward, physical function aggravates the pain as does standing and walking too long. Sitting mitigates the pain, lying down mitigates the pain. Currently the patient reports having a 0/10, however, she had taken her Motrin 800 mg which she takes t.i.d. to q.i.d. The patient has attended Physical Therapy in the past. MEDICATIONS: The patient currently takes Lexapro 20 mg daily. PAST MEDICAL HISTORY / PAST SURGICAL HISTORY and REVIEW OF SYSTEMS are noted on the chart along with the MEDICATIONS, ALLERGIES, and radiological images. PHYSICAL EXAM: GENERAL:This is a pleasant, cooperative female who does not appear to be in any acute distress. VITALS:Stable at 121/73 with a heart rate of 51. HEAD:Atraumatic, normocephalic. NECK:Bullous. HEART:Regular rate, normal rhythm. LUNGS:Normal expansion, no audible wheezing. ABDOMEN:Soft, nondistended. The patient weighs 97 kg at a height of 5'8 . BACK:Significant paravertebral spasming is seen on the left hand side. The patient is status post remote radiofrequency in 2017. Thoracolumbar paravertebral spasming is also present. The patient has decreased spasming on the right hand side. Interspinous pain is present at the level of L5-S1. EXTREMITIES:No pedal edema is noted. MUSCULOSKELETAL:Intact in the lower extremities. The pain is in the posterior aspect at times radiating into her right leg. NEUROLOGICALLY:Hypoest hesia along the L5 distribution on the right hand side. PSYCHIATRICALLY:Affect is appropriate. IMPRESSION: 1. Low back pain. 2. Lumbar neuritis/radiculitis. 3. Lumbar spasming left hand side. 4. Lumbar degenerative disc disease. PLAN: 1. We will start the patient on baclofen 10 mg p.o. q.p.m. 2. The patient has also been educated and the radiological images reviewed. 3. The patient will be scheduled for a lumbar epidural steroid injection under fluoroscopy. The patient understands and would like to proceed. cc:Dr. David [facility] Signed and Approved by: DR SELINA WADDELL 08/24/2018 08:28:00 Normal [facility] MG MAMM SCREEN LUIS W CADon 0 07-29-2018 MG MAMM SCREEN LUIS W CAD Patient: SULY HUFFMAN Exam Date: 07/29/2018 : 1960 Gender:F Ordering : MRS. GARFIELD ROJO MAGDALENO Admission #: [id number] Family : Order #: [id number] CLICK HERE TO VIEW EXAM RADIOLOGY REPORT PROCEDURE: MAMMOGRAM BILATERAL SCREENING DIGITAL WITH COMPUTER AIDED DETECTION COMPARISON: MG MAMM RT DIAG W CAD, 01/02/2017. MAMMO POST BIOPSY RIGHT, 06/16/2016. MG MAMM RT DIAG W CAD, 06/11/2016. MG MAMM SCREEN LUIS W CAD, 07/16/2017. INDICATIONS: Screening mammography Calculator Name NCI Breast Cancer Risk Assessment Tool 5 Year Breast Cancer Risk 2.00% Lifetime Breast Cancer Risk 13.30% Personal Breast Cancer No Personal Ovarian Cancer No Treatments None Family Cancers Sister with thyroid cancer at age 38; Father with lung cancer at age 74. LOCATION: [facility] BREAST COMPOSITION: Heterogeneously dense, which may obscure small masses. FINDINGS: DIAGNOSTIC CATEGORY 2--BENIGN FINDING: RIGHT BREAST: No significant suspicious finding. Scattered benign-appearing lymph nodes are present. No significant change has occurred. LEFT BREAST: No significant suspicious finding. Scattered benign-appearing lymph nodes are present. No significant change has occurred. RECOMMENDATIONS: ROUTINE MAMMOGRAM AND CLINICAL EVALUATION IN 12 MONTHS. PLEASE NOTE: A NORMAL MAMMOGRAM DOES NOT EXCLUDE THE POSSIBILITY OF BREAST CANCER. A CLINICALLY SUSPICIOUS PALPABLE LUMP SHOULD BE BIOPSIED. Dictated by: Gilda Reza MD on 07/29/2018 at 16:44 Approved by: Gilda Reza MD on 07/29/2018 at 16:46 Normal [facility] Vital Signs Date Time Vital Sign Value Performing Clinician Facility 05-27-2019 15:45-0400 Body Temperature 97.5 [degF] [place], [place] 05-27-2019 15:45-0400 BP Diastolic 70 mm[Hg] [place], [place] 05-27-2019 15:45-0400 BP Systolic 155 mm[Hg] [place], [place] 05-27-2019 15:45-0400 Pulse (Heart Rate) 58 /min [place], [place] 05-27-2019 15:45-0400 Pulse Oximetry 99 % [place], [place] 05-27-2019 15:45-0400 Respiratory Rate 16 /min [place], [place] 05-26-2019 14:09-0400 Body mass index (BMI) [Ratio] 9 AU/mL [facility] Comment on above: Result Comment: GBM Reference Range: <100 AU/mL Negative 100-120 AU/mL Equivocal >120 AU/mL Positive Useful for evaluation of patients with rapid onset renal failure or pulmonary hemorrhage. 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 Cautions: A positive test for anti-GBM cannot be relied upon exclusively to establish the diagnosis of anti-GBM diseases. Renal or lung biopsy is often required to establish the diagnosis. Performed By: #### D AU #### [facility] [address] [place] [address] Audio Visual Specialist: Zaki Humphries MD 05-22-2019 21:05-0400 BMI (Body Mass Index) 31.93 kg/m2 [facility], [place] 05-22-2019 [id number] Body weight 95.25 kg Yogesh [facility] , [place] 05-22-2019 [id number] Height 172.7 cm Yogesh [facility] , [place] Encounters Encounter Date Encounter Type Care Provider Facility Start: 05-04-2023 End: 05-04-2023 ambulatory MATTHEW CINTHIA Not Available Start: 03-26-2023 End: 03-26-2023 ambulatory MATTHEW CINTHIA Not Available Start: 02-18-2023 End: 02-19-2023 ambulatory WHIT GODINEZ Not Available Start: 02-18-2021 End: 02-19-2021 ambulatory Hussain Kay II Facility:[facility] Start: 06-10-2019 End: 06-13-2019 Patient encounter procedure [facility] Start: 06-10-2019 End: 06-12-2019 Subsequent hospital visit by physician [facility] Rm [facility] Comment on above: Subarachnoid hemorrh age (HCC) Vasculitis (HCC) Start: 05-22-2019 End: 05-27-2019 Evaluation and management of inpatient OSAMA O JOHNIDAT [facility] Start: 05-22-2019 End: 05-27-2019 Evaluation and management of inpatient Yogesh Rothman Work Phone: [address] Neuro Comment on above: TIA (transient ische saroj attack) (Primary Dx); Subarachnoid hemorrhage (HCC); Subdural hematoma (HCC); SAH (subarachnoid hemorrhage) (HCC) Start: 05-22-2019 End: 05-22-2019 Patient encounter procedure ELADIA DAVID Facility:[facility] Start: 05-17-2019 Patient encounter procedure SELINA WADDELL Facility:[facility] Start: 03-28-2019 End: 03-29-2019 Patient encounter procedure SELINA WADDELL Facility:[facility] Start: 12-20-2018 End: 12-21-2018 Patient encounter procedure SELINA WADDELL Facility:[facility] Start: 11-30-2018 End: 11-30-2018 Patient encounter procedure SELINA WADDELL Facility:[facility] Start: 09-20-2018 End: 09-21-2018 Patient encounter procedure SELINA WADDELL Facility:[facility] Start: 08-31-2018 End: 08-31-2018 Patient encounter procedure SELINA WADDELL Facility:[facility] Start: 08-17-2018 End: 08-18-2018 Patient encounter procedure SELINA WADDELL Facility:[facility] Start: 08-03-2018 Patient encounter procedure SELINA WADDELL Facility:[facility] Start: 07-29-2018 End: 07-30-2018 Patient encounter procedure ELADIA DAVID Facility:[facility] Procedures Date Procedure Procedure Detail Performing Clinician Start: 06-10-2019 Ct angiography head w/contrast/noncontrast COURTNEY LION Start: 06-10-2019 Radiologic exam ches t 2 views COURTNEY LION Start: 06-10-2019 Ct angiography head w/contrast/noncontrast Courtney Lion Work Phone: Start: 06-10-2019 Radiologic exam ches t 2 views Nicolasa Hannah Work Phone: Start: 05-27-2019 DISCHARGE PATIENT OSAMA ZAIDAT Start: 05-27-2019 PULSE OXIMETRY, CONTINUOUS OSAMA ZAIDAT Start: 05-27-2019 Glucose blood reagent strip OSAMA ZAIDAT Start: 05-27-2019 Glucose blood reagent strip Cecilio Sherman Work Phone: Start: 05-27-2019 PULSE OXIMETRY, CONTINUOUS OSAMA ZAIDAT Start: 05-27-2019 Glucose blood reagent strip OSAMA ZAIDAT Start: 05-27-2019 Glucose blood reagent strip Cecilio Sherman Work Phone: Start: 05-27-2019 Gluc bld gluc mntr d ev cleared fda spec home use OSAMA ZAIDAT Start: 05-27-2019 INITIATE OXYGEN THER APY PROTOCOL OSAMA ZAIDAT Start: 05-27-2019 PULSE OXIMETRY, CONTINUOUS OSAMA ZAIDAT Start: 05-27-2019 Glucose blood reagent strip OSAMA ZAIDAT Start: 05-27-2019 Glucose blood reagent strip Cecilio Sherman Work Phone: Start: 05-27-2019 Assay of magnesium OSAM A ZAIDAT Start: 05-27-2019 Basic metabolic pane l calcium total OSAMA ZAIDAT Start: 05-27-2019 Blood count complete automated OSAMA ZAIDAT Start: 05-27-2019 Gluc bld gluc mntr d ev cleared fda spec home use OSAMA ZAIDAT Start: 05-27-2019 PULSE OXIMETRY, CONTINUOUS OSAMA ZAIDAT Start: 05-27-2019 Assay of magnesium Cecilio Sherman Work Phone: Start: 05-27-2019 Basic metabolic pane l calcium total Cecilio Sherman Work Phone: Start: 05-27-2019 Blood count complete automated Cecilio Sherman Work Phone: Start: 05-27-2019 INTAKE AND OUTPUT OSAMA ZAIDAT Start: 05-27-2019 PULSE OXIMETRY, CONTINUOUS OSAMA ZAIDAT Start: 05-27-2019 Gluc bld gluc mntr d ev cleared fda spec home use OSAMA ZAIDAT Start: 05-26-2019 Glucose blood reagent strip OSAMA ZAIDAT Start: 05-26-2019 PULSE OXIMETRY, CONTINUOUS OSAMA ZAIDAT Start: 05-26-2019 Gluc bld gluc mntr d ev cleared fda spec home use OSAMA ZAIDAT Start: 05-26-2019 Glucose blood reagent strip Cecilio Sherman Work Phone: Start: 05-26-2019 PULSE OXIMETRY, CONTINUOUS OSAMA ZAIDAT Start: 05-26-2019 Glucose blood reagent strip OSAMA ZAIDAT Start: 05-26-2019 Glucose blood reagent strip Cecilio Sherman Work Phone: Start: 05-26-2019 PULSE OXIMETRY, CONTINUOUS OSAMA ZAIDAT Start: 05-26-2019 IP CONSULT TO IV TEAM O BEBA ZAIDAT Start: 05-26-2019 Glucose blood reagent strip Cecilio Sherman Work Phone: Start: 05-26-2019 Gluc bld gluc mntr d ev cleared fda spec home use OSAMA ZAIDAT Start: 05-26-2019 INITIATE OXYGEN THER APY PROTOCOL OSAMA ZAIDAT Start: 05-26-2019 PULSE OXIMETRY, CONTINUOUS OSAMA ZAIDAT Start: 05-26-2019 Glucose blood reagent strip Cecilio Sherman Work Phone: Start: 05-26-2019 Assay of magnesium OSAM A ZAIDAT Start: 05-26-2019 Basic metabolic pane l calcium total OSAMA ZAIDAT Start: 05-26-2019 Blood count complete automated OSAMA ZAIDAT Start: 05-26-2019 Gluc bld gluc mntr d ev cleared fda spec home use OSAMA ZAIDAT Start: 05-26-2019 PULSE OXIMETRY, CONTINUOUS OSAMA ZAIDAT Start: 05-26-2019 Assay of magnesium Cecilio Sherman Work Phone: Start: 05-26-2019 Basic metabolic pane l calcium total Cecilio Sherman Work Phone: Start: 05-26-2019 Blood count complete automated Cecilio Sherman Work Phone: Start: 05-26-2019 INTAKE AND OUTPUT OSAMA ZAIDAT Start: 05-26-2019 PULSE OXIMETRY, CONTINUOUS OSAMA ZAIDAT Start: 05-26-2019 Gluc bld gluc mntr d ev cleared fda spec home use OSAMA ZAIDAT Start: 05-25-2019 Glucose blood reagent strip OSAMA ZAIDAT Start: 05-25-2019 Unlis misc path OSAMA Z AIDAT Start: 05-25-2019 PULSE OXIMETRY, CONTINUOUS OSAMA ZAIDAT Start: 05-25-2019 IP CONSULT TO RHEUMATOLOGY OSAMA ZAIDAT Start: 05-25-2019 Glucose blood reagent strip Cecilio Sherman Work Phone: Start: 05-25-2019 Gluc bld gluc mntr d ev cleared fda spec home use OSAMA ZAIDAT Start: 05-25-2019 Glucose blood reagent strip OSAMA ZAIDAT Start: 05-25-2019 Echo tthrc r-t 2d w/wom-mode compl spec&colr d OSAMA ZAIDAT Start: 05-25-2019 Glucose blood reagent strip Cecilio Sherman Work Phone: Start: 05-25-2019 PULSE OXIMETRY, CONTINUOUS OSAMA ZAIDAT Start: 05-25-2019 Echo tthrc r-t 2d w/wom-mode compl spec&colr d Bettie Horn Work Phone: Start: 05-25-2019 Glucose blood reagent strip OSAMA ZAIDAT Start: 05-25-2019 DIET GENERAL OSAMA RYAN AT Start: 05-25-2019 Smr prim src gram/gi emsa stain bct fungi/cell OSAMA ZAIDAT Start: 05-25-2019 Cell count misc body fluids w/differential count OSAMA ZAIDAT Start: 05-25-2019 Glucose body fluid o ther than blood OSAMA ZAIDAT Start: 05-25-2019 Protein total xcpt refractometry ot src OSAMA ZAIDAT Start: 05-25-2019 IR LUMBAR PUNCTURE F OR DIAGNOSIS OSAMA ZAIDAT Start: 05-25-2019 PULSE OXIMETRY, CONTINUOUS OSAMA ZAIDAT Start: 05-25-2019 Glucose blood reagent strip Cecilio Sherman Work Phone: Start: 05-25-2019 [facility] prim src gram/gi emsa stain bct fungi/cell Radha Arlington Work Phone: Start: 05-25-2019 Cell count misc body fluids w/differential count Radha Arlington Work Phone: Start: 05-25-2019 CSF DIFFERENTIAL Radha Arlington Work Phone: Start: 05-25-2019 Glucose body fluid o ther than blood Radha Arlington Work Phone: Start: 05-25-2019 Protein total xcpt refractometry ot src Radha Arlington Work Phone: Start: 05-25-2019 IR LUMBAR PUNCTURE F OR DIAGNOSIS Radha Arlington Work Phone: Start: 05-25-2019 Gluc bld gluc mntr d ev cleared fda spec home use OSAMA ZAIDAT Start: 05-25-2019 INITIATE OXYGEN THER APY PROTOCOL OSAMA ZAIDAT Start: 05-25-2019 PULSE OXIMETRY, CONTINUOUS OSAMA ZAIDAT Start: 05-25-2019 Assay of magnesium OSAM A ZAIDAT Start: 05-25-2019 Basic metabolic pane l calcium total OSAMA ZAIDAT Start: 05-25-2019 Blood count complete automated OSAMA ZAIDAT Start: 05-25-2019 Gluc bld gluc mntr d ev cleared fda spec home use OSAMA ZAIDAT Start: 05-25-2019 PULSE OXIMETRY, CONTINUOUS OSAMA ZAIDAT Start: 05-25-2019 Assay of magnesium Cecilio Sherman Work Phone: Start: 05-25-2019 Basic metabolic pane l calcium total Cecilio Sherman Work Phone: Start: 05-25-2019 Blood count complete automated Cecilio Sherman Work Phone: Start: 05-25-2019 INTAKE AND OUTPUT OSAMA ZAIDAT Start: 05-25-2019 PULSE OXIMETRY, CONTINUOUS OSAMA ZAIDAT Start: 05-25-2019 VITAL SIGNS OSAMA RYAN AT Start: 05-25-2019 Gluc bld gluc mntr d ev cleared fda spec home use OSAMA ZAIDAT Start: 05-25-2019 TRANSFER PATIENT OSAMA ZAIDAT Start: 05-24-2019 Glucose blood reagent strip OSAMA ZAIDAT Start: 05-24-2019 PULSE OXIMETRY, CONTINUOUS OSAMA ZAIDAT Start: 05-24-2019 Glucose blood reagent strip Cecilio Sherman Work Phone: Start: 05-24-2019 Gluc bld gluc mntr d ev cleared fda spec home use OSAMA ZAIDAT Start: 05-24-2019 MISCELLANEOUS NURSIN G CARE ORDER (SPECIFY) OSAMA ZAIDAT Start: 05-24-2019 Glucose blood reagent strip OSAMA ZAIDAT Start: 05-24-2019 MISCELLANEOUS NURSIN G CARE ORDER (SPECIFY) OSAMA ZAIDAT Start: 05-24-2019 Clotting inhibitors protein c activity OSAMA ZAIDAT Start: 05-24-2019 Clotting inhibitors protein s free OSAMA ZAIDAT Start: 05-24-2019 PULSE OXIMETRY, CONTINUOUS OSAMA ZAIDAT Start: 05-24-2019 Glucose blood reagent strip Cecilio Sherman Work Phone: Start: 05-24-2019 Clotting inhibitors protein c activity Radha Arlington Work Phone: Start: 05-24-2019 Clotting inhibitors protein s free Radha Arlington Work Phone: Start: 05-24-2019 Glucose blood reagent strip OSAMA ZAIDAT Start: 05-24-2019 FACTOR 5 LEIDEN OSAMA Z AIDAT Start: 05-24-2019 MISCELLANEOUS NURSIN G CARE ORDER (SPECIFY) OSAMA ZAIDAT Start: 05-24-2019 ASSESS OSAMA RYAN AT Start: 05-24-2019 BEDREST OSAMA RYAN AT Start: 05-24-2019 FULL CODE OSAMA RYAN AT Start: 05-24-2019 NOTIFY PHYSICIAN (SPECIFY) OSAMA ZAIDAT Start: 05-24-2019 NURSING COMMUNICATION O BEBA ZAIDAT Start: 05-24-2019 INITIATE OXYGEN THER APY PROTOCOL OSAMA ZAIDAT Start: 05-24-2019 INTAKE AND OUTPUT OSAMA ZAIDAT Start: 05-24-2019 NEURO CHECKS OSATRINI RYAN AT Start: 05-24-2019 PULSE OXIMETRY, CONTINUOUS OSAMA ZAIDAT Start: 05-24-2019 FACTOR V LEIDEN MUTATION OSAMA ZAIDAT Start: 05-24-2019 Radiologic exam ches t single view Radha Arlington Work Phone: Start: 05-24-2019 Acute hepatitis panel O BEBA ZAIDAT Start: 05-24-2019 Antibody hiv-1 OSAMA ZA IDAT Start: 05-24-2019 Antinuclear antibodies aroldo OSAMA ZAIDAT Start: 05-24-2019 Assay of thyroid stimulating hormone tsh OSAMA ZAIDAT Start: 05-24-2019 C-reactive protein OSAM A ZAIDAT Start: 05-24-2019 Complement antigen e ach component OSAMA ZAIDAT Start: 05-24-2019 Cryoglobulin qualitative/semi-quantitati ve OSAMA ZAIDAT Start: 05-24-2019 Flow cytometry cell surf marker techl only 1st OSAMA ZAIDAT Start: 05-24-2019 Fluorescent nonnfct agt antb screen ea antibody OSAMA ZAIDAT Start: 05-24-2019 Immunoassay analyte quantitative nos OSAMA ZAIDAT Start: 05-24-2019 Rheumatoid factor quantitative OSAMA ZAIDAT Start: 05-24-2019 Sedimentation rate r bc automated OSAMA ZAIDAT Start: 05-24-2019 Gluc bld gluc mntr d ev cleared fda spec home use OSAMA ZAIDAT Start: 05-24-2019 Glucose blood reagent strip Cecilio Sherman Work Phone: Start: 05-24-2019 Slctv cath carotid/i nnom art angio intrcranl art OSAMA ZAIDAT Start: 05-24-2019 Acute hepatitis panel M cailin Lion Work Phone: Start: 05-24-2019 Antinuclear antibodies aroldo Courtney Lion Work Phone: Start: 05-24-2019 Assay of thyroid stimulating hormone tsh Courtney Lion Work Phone: Start: 05-24-2019 C-reactive protein Jack jaramillo Cuney Work Phone: Start: 05-24-2019 Complement antigen e ach component Courtney Cuney Work Phone: Start: 05-24-2019 Flow cytometry cell surf marker techl only 1st [facility] Work Phone: Start: 05-24-2019 Fluorescent nonnfct agt antb screen ea antibody Courtney Cuney Work Phone: Start: 05-24-2019 GLOMERULAR BASEMENT MEMBRANE (GBM) ANTIBODY IGG [facility] Work Phone: Start: 05-24-2019 HIV REFLEX [facility] Work Phone: Start: 05-24-2019 Rheumatoid factor quantitative Courtney Cuney Work Phone: Start: 05-24-2019 Sedimentation rate r bc automated Courtney Cuney Work Phone: Start: 05-24-2019 INITIATE OXYGEN THER APY PROTOCOL OSAMA ZAIDAT Start: 05-24-2019 PULSE OXIMETRY, CONTINUOUS OSAMA ZAIDAT Start: 05-24-2019 Assay of magnesium OSAM A ZAIDAT Start: 05-24-2019 Basic metabolic pane l calcium total OSAMA ZAIDAT Start: 05-24-2019 Blood count complete automated OSAMA ZAIDAT Start: 05-24-2019 PULSE OXIMETRY, CONTINUOUS OSAMA ZAIDAT Start: 05-24-2019 Assay of magnesium Cecilio Sherman Work Phone: Start: 05-24-2019 Basic metabolic pane l calcium total Cecilio Sherman Work Phone: Start: 05-24-2019 Blood count complete automated Cecilio Sherman Work Phone: Start: 05-24-2019 PULSE OXIMETRY, CONTINUOUS OSAMA ZAIDAT Start: 05-23-2019 Localize cerebral se izure cable/radio eeg/video OSAMA ZAIDAT Start: 05-23-2019 PULSE OXIMETRY, CONTINUOUS OSAMA ZAIDAT Start: 05-23-2019 EEG VIDEO MONITORING Sabine Lock Work Phone: Start: 05-23-2019 PULSE OXIMETRY, CONTINUOUS OSAMA ZAIDAT Start: 05-23-2019 Assay of troponin quantitative OSAMA ZAIDAT Start: 05-23-2019 PULSE OXIMETRY, CONTINUOUS OSAMA ZAIDAT Start: 05-23-2019 Assay of troponin quantitative Sandra M Ruddy Work Phone: Start: 05-23-2019 Prothrombin time OSAMA ZAIDAT Start: 05-23-2019 Thromboplastin time partial plasma/whole blood OSAMA ZAIDAT Start: 05-23-2019 INITIATE OXYGEN THER APY PROTOCOL OSAMA ZAIDAT Start: 05-23-2019 PULSE OXIMETRY, CONTINUOUS OSAMA ZAIDAT Start: 05-23-2019 Assay of troponin quantitative Sandra Lock Work Phone: Start: 05-23-2019 Prothrombin time Garfield Condon Work Phone: Start: 05-23-2019 Thromboplastin time partial plasma/whole blood Garfield Condon Work Phone: Start: 05-23-2019 Ecg routine ecg w/le ast 12 lds w/i&r OSAMA ZAIDAT Start: 05-23-2019 EKG REPORT OSAMA RYAN AT Start: 05-23-2019 Transcranial doppler stdy intracranial art compl OSAMA ZAIDAT Start: 05-23-2019 Ecg routine ecg w/le ast 12 lds i&r only Sandra Lock Work Phone: Start: 05-23-2019 EKG REPORT Hpf Scanni ng Start: 05-23-2019 Transcranial doppler stdy intracranial art compl Sandra Lock Work Phone: Start: 05-23-2019 Assay of magnesium OSAM A ZAIDAT Start: 05-23-2019 Basic metabolic pane l calcium total OSAMA ZAIDAT Start: 05-23-2019 Blood count complete automated OSAMA ZAIDAT Start: 05-23-2019 PULSE OXIMETRY, CONTINUOUS OSAMA ZAIDAT Start: 05-23-2019 Assay of magnesium Cecilio Sherman Work Phone: Start: 05-23-2019 Basic metabolic pane l calcium total Cecilio Sherman Work Phone: Start: 05-23-2019 Blood count complete automated Cecilio Sherman Work Phone: Start: 05-23-2019 Assay of magnesium OSAM A ZAIDAT Start: 05-23-2019 Basic metabolic pane l calcium total OSAMA ZAIDAT Start: 05-23-2019 Blood count complete auto&auto difrntl wbc OSAMA ZAIDAT Start: 05-23-2019 Hemoglobin glycosylated a1c OSAMA ZAIDAT Start: 05-23-2019 Lipid panel OSAMA RYAN AT Start: 05-23-2019 PULSE OXIMETRY, CONTINUOUS OSAMA ZAIDAT Start: 05-23-2019 Assay of magnesium Sorin Horn Work Phone: Start: 05-23-2019 Basic metabolic pane l calcium total Bettie Horn Work Phone: Start: 05-23-2019 Blood count complete auto&auto difrntl wbc Bettie Horn Work Phone: Start: 05-23-2019 Hemoglobin glycosylated a1c Bettie Horn Work Phone: Start: 05-23-2019 Lipid panel Bettie cooper Work Phone: Start: 05-22-2019 Drug screen class list a OSAMA ZAIDAT Start: 05-22-2019 Iadna s aureus methi cillin resist amp probe tq OSAMA ZAIDAT Start: 05-22-2019 IP CONSULT TO PHYSIC AL MEDICINE REHAB OSAMA ZAIDAT Start: 05-22-2019 OT EVAL AND TREAT OSAMA ZAIDAT Start: 05-22-2019 PLACE INTERMITTENT PNEUMATIC COMPRESSION DEVICE OSAMA ZAIDAT Start: 05-22-2019 PT EVAL AND TREAT OSAMA ZAIDAT Start: 05-22-2019 REASON FOR NO CHEMIC AL VTE PROPHYLAXIS OSAMA ZAIDAT Start: 05-22-2019 SALESPERSON FURS EVAL AND TREAT OSAM A ZAIDAT Start: 05-22-2019 TELEMETRY MONITORING OS AMA ZAIDAT Start: 05-22-2019 ADVANCE DIET TOLE RATED (NURSING COMMUNICATION) OSAMA ZAIDAT Start: 05-22-2019 MERI COMA SCALE OSAM A ZAIDAT Start: 05-22-2019 INITIATE OXYGEN THER APY PROTOCOL OSAMA ZAIDAT Start: 05-22-2019 IP CONSULT TO NEUROSURGERY OSAMA ZAIDAT Start: 05-22-2019 NEURO CHECKS OSAMA RYAN AT Start: 05-22-2019 NIHSS OSAMA RYAN AT Start: 05-22-2019 NOTIFY PHYSICIAN (SPECIFY) OSAMA ZAIDAT Start: 05-22-2019 NURSING SWALLOW ASSESSMENT OSAMA ZAIDAT Start: 05-22-2019 PROVIDE PATIENT EDUC ATION MATERIALS OSAMA ZAIDAT Start: 05-22-2019 PULSE OXIMETRY, CONTINUOUS OSAMA ZAIDAT Start: 05-22-2019 SEIZURE PRECAUTIONS ELISA MA ZAIDAT Start: 05-22-2019 VITAL SIGNS - NOTIFY OSATRINI WAGONERT Start: 05-22-2019 Ct angiography head w/contrast/noncontrast OSAMA ZAIDAT Start: 05-22-2019 Drug screen class list a Bettie Horn Work Phone: Start: 05-22-2019 Iadna s aureus methi cillin resist amp probe tq Marty Limon Work Phone: Start: 05-22-2019 Mri brain brain stem w/o w/contrast material OSAMA ZAIDAT Start: 05-22-2019 Speech and language therapy regime Bettie Horn Work Phone: Start: 05-22-2019 PATIENT STATUS (FROM ED OR OR/PROCEDURAL) OSAMA ZAIDAT Start: 05-22-2019 TELEMETRY MONITORING OS AMA ZAIDAT Start: 05-22-2019 Ct angiography neck w/contrast/noncontrast Sandra Lock Work Phone: Start: 05-22-2019 IP CONSULT TO NEUROC RITICAL CARE OSAMA ZAIDAT Start: 05-22-2019 IP CONSULT TO NEUROSURGERY OSAMA ZAIDAT Start: 05-22-2019 Mri brain brain stem w/o w/contrast material Sandra Lock Work Phone: Start: 05-22-2019 IP CONSULT TO TRAUMA SURGERY OSAMA ZAIDAT Start: 05-22-2019 IP CONSULT TO ENDOVA SCULAR NEUROSURGERY OSAMA ZAIDAT Plan of Treatment Date Care Activity Detail Author Start: 10-03-2024 DTaP/Tdap/Td vaccine (2 - Td) DTaP/Tdap/Td vaccine (2 - Td) [place], [place] Start: 05-22-2022 Diabetes screen Diabetes screen [place], [place] Start: 05-26-2020 Creatinine monitoring Creatinine mon [place], [place] Start: 05-26-2020 Potassium monitoring Potassium monit [place], [place] Start: 05-24-2020 Creatinine monitoring Creatinine mon [place], [place] Start: 05-24-2020 Potassium monitoring Potassium monit [place], [place] Start: 05-22-2020 Lipid screen Lipid screen [place], [place] Start: 08-23-2019 End: 08-23-2019 Office Visit 08/23/2019 Office Visit Neurology Jose Michael MD [address] [facility] [address] [place] [address] [phone] [facility] Start: 07-05-2019 End: 07-05-2019 Office Visit 07/05/2019 Office Visit Neurology Ashleigh Mcmahon, STRAIGHTENER HAND - CYLINDER 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 [facility] [employer] [address] [id number] [facility] Neurology Specialist Start: 06-17-2019 End: 06-17-2019 Office Visit 06/17/2019 Office Visit Neurology Gayathri Maradiaga MD [address] [facility] [address] [place], [place] [id number] [facility] Start: 06-10-2019 End: 05-26-2020 CTA HEAD W CONTRAST CTA HEAD W CONTRAST Imaging Routine Subarachnoid hemorrhage (HCC) Expected: 06/10/2019, Expires: 05/26/2020 [place] Comment on above: Expected: 06/10/2019 , Expires: 05/26/2020 Start: 05-30-2019 Patient encounter procedure Ambulatory Facility: Start: 11-14-2018 Influenza vaccination Flu vaccine (# 1) [place], [place] Start: 2012 Breast cancer screen Breast cancer s creen [place] Start: 2012 Colon cancer screen colonoscopy Colon cancer screen colonoscopy [place] Start: 2012 Shingles Vaccine (1 of 2) Shingles Vaccine (1 of 2) [place] Start: 12-14-1983 Cervical cancer screen [facility] Start: [facility] End: 05-29-2019 Basic metabolic 2000 panel Basic metabolic panel Lab Routine Tomorrow AM for 7 Occurrences starting 05/23/2019 until 05/29/2019, 5 completed [facility], [place] Comment on above: Tomorrow AM for 7 Oc currences starting 05/23/2019 until 05/29/2019, 5 completed End: 05-29-2019 CBC CBC Lab Routine Tomorrow AM for 7 Occurrences starting 05/23/2019 until 05/29/2019, 5 completed [facility] Comment on above: Tomorrow AM for 7 Oc currences starting 05/23/2019 until 05/29/2019, 5 completed End: 05-24-2019 CRYOGLOBULIN CRYOGLOBULIN Lab Routine One Time for 1 Occurrences starting 05/24/2019 until 05/24/2019 [facility] [place] Comment on above: One Time for 1 Occur rences starting 05/24/2019 until 05/24/2019 CRYOGLOBULIN CRYOGLOBULIN Lab Routine 05/24/2019 11:29 AM EDT [facility], [facility]AGH[place]EN[facility] End: 05-24-2019 FACTOR 5 LEIDEN FACTOR 5 LEIDEN Lab Routine One Time for 1 Occurrences starting 05/24/2019 until 05/24/2019 [facility] [place] Comment on above: One Time for 1 Occur rences starting 05/24/2019 until 05/24/2019 End: 05-25-2019 Factor V Leiden Mutation Factor V Leiden Mutation Lab Routine Once for 1 Occurrences starting 05/25/2019 until 05/25/2019 [facility] [place] Comment on above: Once for 1 Occurrenc es starting 05/25/2019 until 05/25/2019 Initiate Oxygen Ther apy Protocol [place] Comment on above: Daily until disconti nued starting 05/22/2019 Daily until disconti nued starting 05/24/2019 IR ANGIOGRAM CAROTID C EREBRAL BILATERAL IR ANGIOGRAM CAROTID C EREBRAL BILATERAL Imaging Routine 05/24/2019 10:21 AM EDT [facility], [place] End: 06-05-2019 Magnesium [Mass/Vol] Magnesium Lab Routine Daily for 14 Occurrences starting 05/23/2019 until 06/05/2019, 5 completed [facility], [place] Comment on above: Daily for 14 Occurre nces starting 05/23/2019 until 06/05/2019, 5 completed End: 05-25-2019 Miscellaneous lab test #1 Miscellaneous lab test #1 Lab Add-On One Time for 1 Occurrences starting 05/25/2019 until 05/25/2019 [place] Comment on above: One Time for 1 Occur rences starting 05/25/2019 until 05/25/2019 POCT glucose [place], [place] Comment on above: 4X Daily (AC & HS) u ntil discontinued starting 05/24/2019 As Needed until disc ontinued starting 05/24/2019 Pulse Oximetry Spot Check Pulse Oximetry Spot Check Respiratory Care Routine As Needed until discontinued starting 05/24/2019 [place] Comment on above: As Needed until disc ontinued starting 05/24/2019 Pulse oximetry, continuous Pulse oximetry, continuous Respiratory Care Routine Every 4hr until discontinued starting 05/23/2019 [place] Comment on above: Every 4hr until disc ontinued starting 05/23/2019 Payers Date Payer Category Payer Self-pay [id number] 2014 Unknown NWO PLUMBERS PIP EFITTERS RET NWO WELDING INSTRUCTOR DOG OBEDIENCE INSTRUCTOR FRONTPATH xxxxxxxxxx 2014-Present [phone] [address] [place] [address] xxxxxxxxxx [id number] 1962 Unknown [id number] 2.16.840.1.187446.3.579.2.593 1960 Unknown [id number] 2.16.840.1.328127.3.579.2.593 1962 Unknown [id number] 2.16.840.1.596909.3.579.2.593 1962 Unknown [id number] 2.16.840.1.464232.3.579.2.593 1962 Unknown [id number] 2.16.840.1.289824.3.579.2.593 1962 Unknown [id number] 2.16.840.1.636545.3.579.2.593 1962 Unknown [id number] 2.16.840.1.966109.3.579.2.593 1962 Unknown [id number] 2.16.840.1.046775.3.579.2.593 1962 Unknown [id number] 2.16.840.1.718416.3.579.2.593 1962 Unknown [id number] 2.16.840.1.325141.3.579.2.593 1962 Unknown [id number] 2.16.840.1.515199.3.579.2.593 1962 Unknown [id number] 2.16.840.1.852120.3.579.2.176 1962 Unknown [id number] 2.16.840.1.101226.3.579.2.176 1962 Unknown [id number] 2.16.840.1.374651.3.579.2.176 1962 Unknown [id number] 2.16.840.1.246642.3.579.2.175 1962 Unknown [id number] 2.16.840.1.993726.3.579.2.125 9 1962 Unknown [id number] 2.16.840.1.897748.3.579.2.125 9 1962 Unknown [id number] 2.16.840.1.481954.3.579.2.125 9 1959 Unknown [id number] Unknown [id number] 2.16.840.1.742660.3.579.2.531 Social History Date Type Detail Facility Start: 05-22-2019 Tobacco smoking stat [facility] Start: 05-22-2019 Alcohol intake Current drinke r of alcohol (finding) [facility] Start: 05-22-2019 Alcohol Comment Socially [facility] Sex Assigned At Not on file [facility] Start: 1960 Sex Assigned At Female F [facility] Discharge summary note 11-17-2020 Note Date & Type Note Facility 11-17-2020 Note [facility] Patient: SULY HUFFMAN [address] [place] [address] MR#: [id number] DISCHARGE SUMMARY : 64 Service Date: 11/17/20 1216 Discharge Discharge Date Discharge Date: Secondary Diagnoses/Problem Surgical Problems S/P laminectomy Hospital Course Mr Huffman, 59 y/o C f. PMHx of HTN, unprovoked hemorrhagic CVA (2019), HLD, CHRISTIE, obesity, rosacea, CHAPIS. S/p L4-L5 decompressive laminectomy POD#1, done for lumbar stenosis. Surgery was uneventful, with minimal blood loss, done under general anaesthesia. Postoperative period is uneventful. Vitally and medically stable. Ambulates with help since yesterday evening. No Lui, has drainage. Going home with drainage, ppx Abx prescribed. Discharge Medications Continue taking these medications: Metoprolol Succinate* (Toprol XL*) 50 MG TABLET. 50 MILLIGRAM ORAL EVERY DAY Comments: Take next dose at: TOMORROW Losartan Potassium * (Cozaar *) 50 MG TABLET 50 MILLIGRAM ORAL Every Day @ 12 Noon Comments: Take next dose at: TOMORROW Escitalopram Oxalate * (Lexapro *) 20 MG TABLET 20 MILLIGRAM ORAL EVERY DAY Comments: Take next dose at: TOMORROW Triamterene/Hydrochlorothiazide * (Maxzide 37.5mg-25mg *) 1 TAB 1 TABLET ORAL EVERY DAY Comments: Take next dose at: TOMORROW Docusate Sodium * (Colace *) 100 MG CAPSULE 100 MILLIGRAM ORAL 2 TIMES DAILY Instructions: BUY OVER THE COUNTER, TAKE TO HELP PREVENT CONSTIPATION Comments: Take next dose at: TONIGHT Polyethylene Glycol 3350 * (Miralax *) 17 GM PACKET 17 GRAM ORAL DAILY NEEDED as needed for Constipation Start taking the following new medications: oxyCODONE HCl 5mg AND Acetaminophen 325mg * (Percocet 5mg/325mg Tablet *) 1 EACH TABLET 1 EACH ORAL EVERY 4-6 HRS PRN as needed for POST OP PAIN Days = 7 Qty = 42 No Refills Comments: Take next dose at: 1:30P Carisoprodol * (Soma 350mg Tablet*) 350 MG TABLET 350 MILLIGRAM ORAL THREE TIMES DAILY NEEDED as needed for SPASMS Days = 7 Qty = 21 No Refills Cephalexin Monohydrate * (Cephalexin *) 500 MG TABLET 500 MILLIGRAM ORAL 4 TIMES A DAY Days = 5 Qty = 20 No Refills Comments: Take next dose at: THIS AFTERNOON Referrals Ordered Referrals Followup- Ortho 11/21/20 [place] Providers: [place] [address] [place] [address] CALL OFFICE ON THURSDAY FOR APPOINTMENT TIME ON THURSDAY FOR DRAIN REMOVAL Condition Improved, Stable, Good Disposition Home Electronically Signed eSign Date and Time DylanHina Residen [facility] Evaluation note Note Date & Type Note Facility Evaluation note No assessment information [facility] Work Phone: Summary Purpose Family History No Family History Records Found Relationship Condition Age at Onset Recorded Date/T lily father Heart disease Unknown Malignant neoplasm Unknown Not Specified Hypertension Unknown sister Malignant neoplasm of thyroid gland Unkno wn Advance Directives No Advanced Directives Records FoundDocuments on File Type Date Recorded Patient Chief Controller Expl anation Advance Directives and Living Will Power of Territory Account Representative Latest Code Status on File Code Status Date Activated Date Inactivated Comments Full Code 05/24/2019 12:07 PM Full Code 05/22/2019 8:41 PM 05/24/2019 12:06 PM Documents on File Type Date Recorded Patient Chief Controller Expl anation Advance Directives and Living Will Power of Territory Account Representative Latest Code Status on File Code Status Date Activated Date Inactivated Comments Full Code 05/24/2019 12:07 PM 05/27/2019 7:58 PM Full Code 05/22/2019 8:41 PM 05/24/2019 12:06 PM Latest Code Status on File Code Status Date Activated Date Inactivated Comments Full Code 05/24/2019 12:07 PM 05/27/2019 7:58 PM Reason for Referral Status Reason Specialty Diagnoses / Procedures Referre d By Contact Referred To Contact Open Radiology Diagnoses Subarachnoid hemorrhage (HCC) Procedures CTA HEAD W CONTRAST Courtney Lion APRN - CNP [address] [facility] [address] [place] [id number] Status Reason Specialty Diagnoses / Procedures Referre d By Contact Referred To Contact Closed Radiology Diagnoses Subarachnoid hemorrhage (HCC) Procedures CTA HEAD W CONTRAST HC CTA veterinary medical officerCourtney Lion APRN - CNP [address] [facility] [address] [place] [id number] Discharge Instructions * Discharge Instr - Activity* Courtney Lion APRN - CNP - 05/27/2019 4:27 PM EDT No lifting greater than 10 pounds for 7 days post angio (through 05/31). Otherwise no restrictions. * Discharge Instr - Diet* Courtney Lion APRN - CNP - 05/27/2019 4:26 PM EDT ? Good nutrition is important when healing from an illness, injury, or surgery. Follow any nutrition recommendations given to you during your hospital stay. ? If you were given an oral nutrition supplement while in the hospital, continue to take this supplement at home. You can take it with meals, in-between meals, and/or before bedtime. These supplements can be purchased at most local grocery stores, pharmacies, and chain super-stores. ? If you have any questions about your diet or nutrition, call the hospital and ask for the dietitian. * Discharge Instr - ANGELA* Filiberto Hastings RN - 05/27/2019 5:48 PM EDT Continuity of Care Form Patient Name: Suly Huffman : 1960 Admit date: 05/22/2019 Discharge date: 05/27/2019 Code Status Order: Full Code Advance Directives: Advance Care Flowsheet Documentation Date/Time Healthcare Directive Type of Healthcare Directive Copy in Chart Healthcare Agent Appointed Healthcare Agent's Name Healthcare Agent's Phone Number 05/22/19 220 No, patient does not have an advance directive for healthcare treatment -- -- -- -- -- Admitting Physician: Cecilio Sherman MD PCP: Eladia Bran MD Discharging Nurse: Filiberto Hastings Discharging Hospital Unit/Room#: 0541/0541-01 Discharging Unit Emergency Contact: Extended Emergency Contact Information Primary Emergency Contact: Shon Huffman Relation: Spouse Secondary Emergency Contact: Xander Huffman Relation: Child Past Surgical History: History reviewed. No pertinent surgical history. Immunization History: There is no immunization history on file for this patient. Active Problems: Patient Active Problem List Diagnosis Code Subarachnoid hemorrhage (HCC) I60.9 TIA (transient ischemic attack) G45.9 Isolation/Infection: Isolation No Isolation Patient Infection Status None to display Nurse Assessment: Last Vital Signs: BP (!) 155/70 Pulse 58 Temp 97.5 F (36.4 C) (Oral) Resp 16 Ht 5' 8 (1.727 m) Wt 210 lb (95.3 kg) SpO2 99% BMI 31.93 kg/m Last documented pain score (0-10 scale): Pain Level: 4 Last Weight: Wt Readings from Last 1 Encounters: 05/22/19 210 lb (95.3 kg) Mental Status: oriented IV Access: - None Nursing Mobility/ADLs: Walking Independent Transfer Independent Bathing Independent Dressing Independent Toileting Independent Feeding Assisted Hogshead Wrecker Independent Med Delivery crushed Wound Care Documentation and Therapy: Elimination: Continence: Bowel: Yes Bladder: Yes Urinary Catheter: None Colostomy/Ileostomy/Ileal Conduit: No Date of Last BM: 05/27/2019 No intake or output data in the 24 hours ending 05/27/19 1746 No intake/output data recorded. Safety Concerns: None Impairments/Disabilities: Speech Nutrition Therapy: Current Nutrition Therapy: - Tube Feedings: Diabetic Routes of Feeding: Nasogastric Liquids: No Liquids Daily Fluid Restriction: no Last Modified Barium Swallow with Video (Video Swallowing Test): done on 05/27/2019// Treatments at the Time of Hospital Discharge: Respiratory Treatments: none Oxygen Therapy: {Therapy; copd oxygen:12520} Ventilator: { CC Vent List:199228701} Rehab Therapies: Speech/Language Therapy Weight Bearing Status/Restrictions: No weight bearing restirctions Other Medical Equipment (for information only, NOT a DME order): {EQUIPMENT:998081560} Other Treatments: Patient's personal belongings (please select all that are sent with patient): None RN SIGNATURE: CASE MANAGEMENT/SOCIAL WORK SECTION Inpatient Status Date: Readmission Risk Assessment Score: Readmission Risk Risk of Unplanned Readmission: 11 Discharging to Facility/ Agency Name: Address: Phone: Fax: Dialysis Facility (if applicable) Name: Address: Dialysis Schedule: Phone: Fax: Child Day Care Teacher/Manager File signature: {Esignature:610640375} PHYSICIAN SECTION Prognosis: {Prognosis:6668506803} Condition at Discharge: { Patient Condition:091146230} Rehab Potential (if transferring to Rehab): {Prognosis:3728587906} Recommended Labs or Other Treatments After Discharge: Physician Certification: I certify the above information and transfer of Suly Huffman is necessary for the continuing treatment of the diagnosis listed and that she requires {Admit to Appropriate Level of Care:56771} for {GREATER/LESS:733692502} 30 days. Update Admission H&P: {CHP DME Changes in HandP:702344522} PHYSICIAN SIGNATURE: {Esignature:213348215} * Additional Instructions* Courtney Lion, CLIFFORD - CYLINDER 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 PULP DRIER - 05/25/2019 Take your medications as prescribed. Do not stop taking medications without talking to your doctor first. 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 You are to take Verapamil 40mg every 8 hours for the next three months, this will be re- assessed at your appointment with Neuro Endovascular in 3 months. You are to continue taking Keppra 500mg twice daily for the next three months for possible sensory seizures. This should also be addressed at your follow up appointment. Follow seizure precautions as instructed. No driving for 6 months or until cleared by Neurology. Continue taking your home blood pressure medications exce pt for Metoprolol as your heart rate was low during this admission. If you have any of these symptoms, call 911 or other emergency services right away. You have symptoms of a stroke. These may include: ? Sudden numbness, tingling, weakness, or loss of movement in your face, arm, or leg, especially ononly one side of your body. (different than your typical events or does not go away) ? Sudden vision changes. ? Sudden trouble speaking. ? Sudden confusion or trouble understanding simple statements. ? Sudden problems with walking or balance. ? A sudden, severe headache that is different from past headaches. See your doctor if you have symptoms that seem like a stroke, even if they go away quickly. You mayhave had a transient ischemic attack (TIA), sometimes called a mini-stroke. A TIA is a warning thata stroke may happen soon. Getting early treatment for a TIA can help prevent a stroke. * Attachments The following attachments cannot be sent through Care Everywhere. * Seizure (Emirati) * Subarachnoid Hemorrhage: General Info (Emirati) documented in this encounter History of Present Illness * Kristin Rankin, PT - 05/26/2019 10:28 AM EDT Physical Therapy Facility/Department: [address] NEURO Daily Treatment Note NAME: Suly Huffman : 1960 Date of Service: 05/26/2019 Discharge Recommendations: No further therapy required at discharge. PT Equipment Recommendations Equipment Needed: No Assessment Assessment: Pt demonstrated safe independent mobility. Prognosis: Good Decision Making: Low Complexity PT Education: PT Role;Plan of Care REQUIRES PT FOLLOW UP: No Activity Tolerance Activity Tolerance: Patient Tolerated treatment well Patient Diagnosis(es): The primary encounter diagnosis was TIA (transient ischemic attack). Diagnoses of Subarachnoid hemorrhage (HCC), Subdural hematoma (HCC), and SAH (subarachnoid hemorrhage) (HCC) were also pertinent to this visit. has a past medical history of Depression, Hyperlipidemia, and Hypertension. has no past surgical history on file. Restrictions Restrictions/Precautions Restrictions/Precautions: General Precautions, Fall Risk, Seizure Required Braces or Orthoses?: No Position Activity Restriction Other position/activity restrictions: up with assist, SBP goal <140 Subjective General Family / Caregiver Present: No Subjective Subjective: Pt hoping for discharge home today. Pain Screening Patient Currently in Pain: Denies Vital Signs Patient Currently in Pain: Denies Orientation Orientation Overall Orientation Status: Within Normal Limits Cognition Cognition Overall Cognitive Status: WNL Objective Bed mobility Supine to Sit: Independent Sit to Supine: Independent Scooting: Independent Transfers Sit to Stand: Independent Stand to sit: Independent Ambulation Ambulation?: Yes Ambulation 1 Surface: level tile Device: No Device Assistance: Independent Gait Deviations: None Distance: 300 ft Stairs/Curb Stairs?: Yes Stairs # Steps : 4 Stairs Height: 6 Rails: Right ascending Device: No Device Assistance: Supervision Balance Posture: Good Sitting - Static: Good Sitting - Dynamic: Good Standing - Static: Good Standing - Dynamic: Good Comments: standing balance assessed without AD Goals Short term goals Time Frame for Short term goals: 14 visits Short term goal 1: Perform bed mobility and functional transfers independently Short term goal 2: Ambulate 600ft independently Short term goal 3: Ascend/descend 6 steps with R HR independently Short term goal 4: Demo Good dynamic standing balance Plan Plan Times per week: 3-5x/wk Current Treatment Recommendations: Strengthening, ROM, Balance Training, Transfer Training, Functional Mobility Training, Neuromuscular Re-education, Endurance Training, Home Exercise Program, SafetyEducation & Training, Patient/Caregiver Education & Training, Gait Training, Stair training Plan Comment: Pt is discharged from PT. Safety Devices Type of devices: Gait belt, Nurse notified, Left in bed, Call light within reach Restraints Initially in place: No Therapy Time Individual Concurrent Group Co-treatment Time In 0915 Time Out 0928 Minutes 13 KRISTIN RANKIN PT * Sandra Lock, STRAIGHTENER HAND - CYLINDER 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 [employer] - 05/26/2019 7:36 AM EDT Daily Progress Note Neuro Critical Care Patient Name: Suly Huffman Patient : 1960 Room/Bed: 0541/0541-01 Code Status: Full Allergies: Allergies Allergen Reactions Augmentin [Amoxicillin-Pot Clavulanate] Diarrhea CHIEF COMPLAINT: Intermittent left sided paresthesias and weakness INTERVAL HISTORY Initial Presentation (Admitted 05/22/19): The patient is a 58 yo female with history of HTN, HLD, and depression who presents as a transfer from [facility] for subarachnoid hemorrhage with 3 mm right subdural hematoma. She states thatsince Thursday she has had intermittent numbness and tingling of her left upper and left lower extremity as well as she what she feels like is loss of control of her left upper extremity. She states that these episodes last approximately 5 to 10 minutes, currently denies any complaints at this time. She adamantly denies any falls, trauma. She denies any headache, nausea, vomiting, blurry vision, chest pain, lightheadedness, dizziness, unsteady gait, dysarthria. She states she has never had symptoms like this in the past. Denies any history of strokes. Patient does state that she has had some nasal congestion for the last few days but denies any fevers, cough, neck stiffness. No antiplatelet or anticoagulation at home. Patient was on Lexapro but states she was started on it 20 years ago for episodic depression and just never stopped taking it. Silva&Andrews: 0, Modified Pollard: 1 Hospital Course: 05/22: Multiple episodes of left sided numbness throughout the day. Loaded with 2g Keppra followed [id number] BID. LTME started. 05/23: Two episodes of left sided paresthesias and left arm ataxia/weakness noted by patient and nursing overnight lasting about 2 minutes each. Nurse reports event monitor was pushed on LTME. Events did not have correlation on LTME. 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 Findings concerning for RCVS vs vascultitis. Nimotop stopped, started on Verapamil andSolumedrol 1g QD x3 days. Serum vasculitis panel sent, LP attempt at bedside unsuccessful. 05/24: Reports 3 short episodes of left sided numbness and tingling and left arm ataxia overnight. She feels it is more focused in her left arm recently. On exam this morning, patient remains neurologically intact. LP completed in IR. Last 24h: No acute events overnight. CSF studies concerning for vasculitis vs angitis with elevated protein, WBC, and elevated rheumatoid factor. Rheumatology consulted, will see patient on 05/26. Patient does report she had elevated rheumatoid factor in 2015 and was evaluated at [facility], but specialist at that time did not feel it was clinically significant. Rheumatoid factor in 2016 was 120, 123 t his admission. Will continue Keppra 500 mg BID for focal seizure like activity. Solumedrol 1 g Daily, Day 05/16 - will see if rheumatology feels patient would benefit for immunosuppression therapy. CURRENT MEDICATIONS: SCHEDULED MEDICATIONS: losartan 50 mg Oral Daily triamterene-hydrochlorothiazide 1 tablet Oral Daily verapamil 40 mg Oral 3 times per day methylPREDNISolone (SOLU-MEDROL) IVPB 1,000 mg Intravenous Daily atorvastatin 10 mg Oral Nightly enoxaparin 40 mg Subcutaneous Daily insulin lispro 0-6 Units Subcutaneous TID WC insulin lispro 0-3 Units Subcutaneous Nightly famotidine (PEPCID) injection 20 mg Intravenous BID sennosides-docusate sodium 2 tablet Oral Daily fluticasone 1 spray Each Nostril Daily levETIRAcetam 500 mg Oral BID sodium chloride flush 10 mL Intravenous 2 times per day CONTINUOUS INFUSIONS: dextrose PRN MEDICATIONS: melatonin, oxyCODONE, glucose, dextrose, glucagon (rDNA), dextrose, acetaminophen, hydrALAZINE, benzonatate, sodium chloride flush, sodium chloride flush, magnesium sulfate, acetaminophen, perflutrenlipid microspheres, promethazine OR ondansetron, labetalol VITALS: Temperature Range: Temp: 97.3 F (36.3 C) Temp Av.6 F (36.4 C) Min: 97.3 F (36.3 C) Max: 97.9 F(36.6 C) BP Range: Systolic (24hrs), Av , Min:129 , Max:180 Diastolic (24hrs), Av, Min:55, Max:100 Pulse Range: Pulse Av.3 Min: 56 Max: 65 Respiration Range: Resp Av Min: 17 Max: 24 Current Pulse Ox: SpO2: 98 % 24HR Pulse Ox Range: SpO2 Av.3 % Min: 98 % Max: 99 % Patient Vitals for the past 12 hrs: BP Temp Temp src Pulse Resp 05/26/19 0400 (!) 131/55 97.3 F (36.3 C) Oral 56 19 05/26/19 0000 (!) 147/63 97.9 F (36.6 C) Oral 61 17 05/25/191955 (!) 153/72 97.6 F (36.4 C) Oral 65 24 Estimated body mass index is 31.93 kg/m as calculated from the following: Height as of this encounter: 5' 8 (1.727 m). Weight as of this encounter: 210 lb (95.3 kg). []<16 Severe malnutrition []16 16.99 Moderate malnutrition []17 18.49 Mild malnutrition []18.5 24.9 Normal []25 29.9 Overweight (not obese) [x]30 34.9 Obese class 1 (Low Risk) []35 39.9 Obese class 2 (Moderate Risk) []?40 Obese class 3 (High Risk) RECENT LABS: Lab Results Component Value Date WBC 18.3 (H) 05/26/2019 HGB 13.0 05/26/2019 HCT 39.0 05/26/2019 PLT 234 05/26/2019 CHOL 150 05/23/2019 TRIG 226 (H) 05/23/2019 HDL 31 (L) 05/23/2019 NA 136 05/26/2019 K 3.9 05/26/2019 CL 103 05/26/2019 CREATININE 0.57 05/26/2019 BUN 17 05/26/2019 CO2 21 05/26/2019 TSH 3.52 05/24/2019 INR 1.0 05/23/2019 LABA1C 5.5 05/23/2019 24 HOUR INTAKE/OUTPUT: Intake/Output Summary (Last 24 hours) at 05/26/2019 0736 Last data filed at 05/25/2019 1500 Gross per 24 hour Intake 971 ml Output Net 971 ml IMAGING: IR LUMBAR PUNCTURE FOR DIAGNOSIS Final Result Successful fluoroscopic-guided lumbar puncture. XR CHEST PORTABLE Final Result No acute cardiopulmonary process. IR ANGIOGRAM CAROTID C EREBRAL BILATERAL VL TRANSCRANIAL DOPPLER COMPLETE Final Result CTA HEAD NECK W CONTRAST Final Result No cerebral aneurysm or vascular malformation visualized. No flow limiting stenosis or large vessel occlusion detected within the head or neck. MRI BRAIN W WO CONTRAST Final Result Subarachnoid hemorrhage central sulcus on the right. Small extra-axial hemorrhage on the right seen on CT today is less conspicuous. At least 4 white matter foci within the centrum semiovale on the left of uncertain significance. Follow-up recommended. Bilateral mastoid effusions. RECOMMENDATIONS: The findings were sent to the Radiology Results Communication Center at 7:52 pm on 05/22/2019to be communicated to a licensed caregiver. Case discussed with Dr. Iqbal at 7:56 p.m. IR ANGIOGRAM CAROTID C EREBRAL BILATERAL (Results Pending) Labs and Images reviewed with: [x] Dr. Arleth Wilder [] Dr. Cecilio Sherman [] Dr. James Ramsey [] There are no new interval images to review. PHYSICAL EXAM CONSTITUTIONAL: Well developed, well nourished, alert and oriented x 3, in no acute distress. GCS 15. Nontoxic. No dysarthria. No aphasia. HEAD: normocephalic, atraumatic EYES: PERRLA, EOMI. ENT: moist mucous membranes NECK: supple, symmetric LUNGS: Equal air entry bilaterally, clear CARDIOVASCULAR: normal s1 / s2, RRR, distal pulses intact ABDOMEN: Soft, no rigidity NEUROLOGIC: Mental Status: A & O x3,awake Cranial Nerves: cranial nerves II-XII are grossly intact Motor Exam: Drift: absent Tone: normal Motor exam is symmetrical 5 out of 5 all extremities bilaterally Sensory: Touch: Right Upper Extremity: normal Left Upper Extremity: normal Right Lower Extremity: normal Left Lower Extremity: normal Coordination/Dysmetria: Heel to More[place]: Right: normal Left: normal Finger to Nose: Right: normal Left: normal Gait: normal NIH Stroke Scale Total (if not done complete detailed one below): 1a. Level of consciousness: 0 - alert; keenly responsive 1b. Level of consciousness questions: 0 - answers both questions correctly 1c. Level of consciousness questions: 0 - performs both tasks correctly 2. Best Gaze: 0 - normal 3. Visual: 0 - no visual loss 4. Facial Palsy: 0 - normal symmetric movement 5a. Motor left arm: 0 - no drift, limb holds 90 (or 45) degrees for full 10 seconds 5b. Motor right arm: 0 - no drift, limb holds 90 (or 45) degrees for full 10 seconds 6a. Motor left le - no drift; leg holds 30 degree position for full 5 seconds 6b. Motor right le - no drift; leg holds 30 degree position for full 5 seconds 7. Limb Ataxia: 0 - absent 8. Sensory: 0 - normal; no sensory loss 9. Best Language: 0 - no aphasia, normal 10. Dysarthria: 0 - normal 11. Extinction and Inattention: 0 - no abnormality TOTAL: DRAINS: [] There are no drains for Neuro Critical Care to monitor at this time. ASSESSMENT AND PLAN: The patient is a 58 yo female with a history of HTN, HLD, and depression on SSRI who was admitted to the Neuro ICU for management of SAH and SDH. Initially presented with reports of intermittent leftsided weakness and paresthesias. Angio concerning for RCVS vs vasculitis. NEUROLOGIC: - Non-traumatic SAH, SDH - Etiology RCVS vs vasculitis - Baseline TCD 3/9 normal, no need for daily TCDs - POD #2 s/p diagnostic cerebral angiogram revealing right MCA distal branches and AMAIRANI distale branches with focal segmental mild to moderate narrowing/vasospasm mostly in the right anterior circulation, distal CART[employer] WAXING 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 branches with moderate focal segmental vasospasm - Continue Verapamil 40mg Q8h (Nimotop stopped), Solumedrol 1g QD x3 days (day 3/3) - F/U Vasculitis panel - LP via IR - Protein 69.2, WBC 92 - Rheumatoid factor elevated, 123 - Keep off SSRI, follow up outpatient regarding depression - Neuro Endovascular following; plan for repeat CTA vs cerebral angio in about 2 weeks - Continue Keppra 500 mg BID - Goal SBP<150 - Neuro checks per protocol CARDIOVASCULAR: - Goal SBP<150 - PRN Hydralazine/Labetalol - History of HTN - Continue Losartan 50mg QD and Maxzide 37.5-25mg QD - Troponin 7, EKG sinus dagmar - Echocardiogram: EF 55%, negative bubble - Lipid panel; LDL 74, cholesterol 150 - Lipitor to 10mg QHS - Continue telemetry PULMONARY: - Maintaining O2 sats on room air - Recent cough with mild leukocytosis on admission - CXR with no acute process RENAL/FLUID/ELECTROLYTE: - Normal renal functioning - BUN 17/ Creatinine 0.57 - Adequate urine output per nursing - IVF: discontinued - Replace electrolytes PRN - Daily BMP GI/NUTRITION: NUTRITION: General diet - Bowel regimen: Senokot-S daily, Milk of Mag PRN - GI prophylaxis: Not indicated ID: - Afebrile, Tmax 36.6 - Mild leukocytosis likely secondary to steroids (had returned to normal before steroids started), WBC 18.5 - Cough noted, CXR negative - Continue to monitor for fevers - Daily CBC HEME: - H&H 11.3/39.0 - Platelets 234 - Daily CBC ENDOCRINE: - Continue to monitor blood glucose, goal <180 - Hemoglobin A1C 5.5 OTHER: - Melatonin 5mg QHS PRN for sleep - PT/OT/ST - PM&R evaluated, too high level for inpatient rehab - Code Status: FULL - Rheumatology consult, discussed with Dr. Darby, will evaluate patient on 05/26 PROPHYLAXIS: Stress ulcer: N/A DVT PROPHYLAXIS: - SCD sleeves - Thigh High - Lovenox DISPOSITION: [] To remain ICU: [] OK for out of ICU from Neuro Critical Care standpoint We will continue to follow along. For any changes in exam or patient status please contact Neuro Critical Care. Sandra Lock, STRAIGHTENER HAND - [facility] Neuro Critical Care Pager [phone] 05/26/2019 7:36 AM Associated attestation - Arleth Wilder MD - 05/27/2019 8:50 AM EDT Neuro critical care: CSF studies reviewed and WBCs elevated at 92 and RBC 10,000. Proteins elevated in 90s. Of note, patient reported today visiting [facility] 5 year s ago for elevated RA factor in 120s. No followup , clinical issues or diagnosis since. RA factor elevated again in 120s. 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 CSF sent to [facility] for autoimmune panel testing Continue keppra, verapamil and steroids in the interim. Marleny Wilder MD * Renetta Eng - 05/25/2019 5:47 PM EDT Echo completed at the bedside * Caridad Skinner RN - 05/25/2019 11:58 AM EDT LUMBAR PUNCTURE DR. SELINA Mclean RN Melissa RT PATIENT TO IR, IDENTIFIED, ALLERGIES CONFIRMED. MONITORS ON. PRONE. STABLE. TIME OUT COMPLETE. PREP TO LUMBAR REGION PER 8 MLS OF BLOODY PINKISH COLORED CSF OBTAINED. BANDAGE TO LUMBAR REGION PUNCTURE SITE. NO PROBLEMS NOTED. REPORT CALLED. PATIENT STABLE, OFF MONITOR, BACK TO STRETCHER AND READY FOR TRANSPORT. SAMPLES OBTAINED SENT TO LAB PER DIRECTOR CONSTRUCTION SERVICES RN. * BetoPaulDE mcdowell - 05/25/2019 11:38 AM EDT Occupational Therapy Facility/Department: [address] Daily Treatment Note NAME: Suly Huffman : 1960 Date of Service: 05/25/2019 Discharge Recommendations: No therapy recommended at discharge. Goals were met this day, discussed with OTR, pt to be removed form case load. Assessment Performance deficits / Impairments: Decreased functional mobility ;Decreased fine motor control;Decreased high-level IADLs;Decreased ADL status Prognosis: Good OT Education: OT Role;Plan of Care Patient Education: purpose of OT; C activity Barriers to Learning: pt sabine Pak carry over REQUIRES OT FOLLOW UP: No Activity Tolerance Activity Tolerance: Patient Tolerated treatment well Safety Devices Safety Devices in place: Yes Type of devices: Patient at risk for falls;Left in bed;Call light within reach;Nurse notified Patient Diagnosis(es): The primary encounter diagnosis was TIA (transient ischemic attack). Diagnoses of Subarachnoid hemorrhage (HCC), Subdural hematoma (HCC), and SAH (subarachnoid hemorrhage) (HCC) were also pertinent to this visit. has a past medical history of Depression, Hyperlipidemia, and Hypertension. has no past surgical history on file. Restrictions Restrictions/Precautions Restrictions/Precautions: General Precautions, Fall Risk, Seizure Required Braces or Orthoses?: No Position Activity Restriction Other position/activity restrictions: up with assist, SBP goal <140 Subjective General Patient assessed for rehabilitation services?: Yes Family / Caregiver Present: Yes(Spouse) Diagnosis: SDH/SAH, L sided numbness Pain Assessment Pain Assessment: 0-10 Pain Level: 4 Pain Radiating Towards: headache Vital Signs Patient Currently in Pain: Yes Orientation Orientation Overall Orientation Status: Within Functional Limits Objective ADL LE Dressing: Setup;Independent(to doff/don socks seated at EOB) Additional Comments: Per RN pt compelted oral care prior to session without assist Balance Sitting Balance: Independent Standing Balance: Independent Standing Balance Time: pt tolerated approx 8-10 min Activity: during item retreivel/transport task Comment: without AD Functional Mobility Functional - Mobility Device: No device Activity: Transport items;Retrieve items Assist Level: Independent Functional Mobility Comments: 0 LOB noted Bed mobility Supine to Sit: Independent Sit to Supine: Independent Scooting: Independent Transfers Stand Step Transfers: Independent Sit to stand: Independent Stand to sit: Independent Transfer Comments: without AD Cognition Overall Cognitive Status: WFL Pt and RN agreeable to therapy this day. ADL task of LBD completed see above for LOF. Item retreivel/transport task completed without AD in order to obtain objects from various heights and surfaces, pt sandrao Pasha carry over. FMC activity implemented utilizing L digits for flexion, oppositon, grasp, pincer grasp and tripod grasp in order to obtain small objects, 3 LOG noted with 5th and 4th digit, decreased LOG noted further into session. AGUILAR educated pt on cont use of FMC activity in order to improve ROM and temple marker for ADL tasks, pt sabine Pak understanding. Plan Plan Times per week: 3-4x Current Treatment Recommendations: Neuromuscular Re-education, Home Management Training, Self-Care / ADL, Patient/Caregiver Education & Training, Equipment Evaluation, Education, & procurement, Balance Training Cont POC Goals Short term goals Time Frame for Short term goals: Pt will by discharge Short term goal 1: demo ADL UB/LB dressing/bathing activity (I) Short term goal 2: demo FM coordination activity using only LUE for 10 min+ to promote ADL performance Short term goal 3: demo good safety awareness during func mob around room (I) Short term goal 4: demo bending/reaching func activity while standing (I) Therapy Time Individual Concurrent Group Co-treatment Time In 1040 Time Out 1103 Minutes 23 Timed Code Treatment Minutes: 23 Minutes BLAKE Vann * Kristin Rankin, PT - 05/25/2019 11:37 AM EDT Physical Therapy DATE: 05/25/2019 NAME: Suly Huffman : 1960 Patient not seen this date for Physical Therapy due to: [] Blood transfusion in progress [] Hemodialysis [] Patient Declined [] Spine Precautions [] Strict Bedrest [x] Surgery/ Procedure Leaving for lumbar puncture. Will check 05/25. [] Testing [] Other [] PT being discontinued at this time. Patient independent. No further needs. [] PT being discontinued at this time as the patient has been transferred to palliative care. No further needs. KRISTIN RANKIN PT * Courtney Lion, STRAIGHTENER HAND - CYLINDER 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 PULP DRIER - 05/25/2019 8:05 AM EDT Daily Progress Note Neuro Critical Care Patient Name: Suly Huffman Patient : 1960 Room/Bed: [address] [place] [address] Code Status: FULL Allergies: Allergies Allergen Reactions Augmentin [Amoxicillin-Pot Clavulanate] Diarrhea CHIEF COMPLAINT: Intermittent left sided paresthesias and weakness INTERVAL HISTORY Initial Presentation (Admitted 05/22/19): The patient is a 58 yo female with history of HTN, HLD, and depression who presents as a transfer from [facility] for subarachnoid hemorrhage with 3 mm right subdural hematoma. She states thatsince Thursday she has had intermittent numbness and tingling of her left upper and left lower extremity as well as she what she feels like is loss of control of her left upper extremity. She states that these episodes last approximately 5 to 10 minutes, currently denies any complaints at this time. She adamantly denies any falls, trauma. She denies any headache, nausea, vomiting, blurry vision, chest pain, lightheadedness, dizziness, unsteady gait, dysarthria. She states she has never had symptoms like this in the past. Denies any history of strokes. Patient does state that she has had some nasal congestion for the last few days but denies any fevers, cough, neck stiffness. No antiplatelet or anticoagulation at home. Patient was on Lexapro but states she was started on it 20 years ago for episodic depression and just never stopped taking it. Silva&Andrews: 0, Modified Pollard: 1 Hospital Course: 05/22: Multiple episodes of left sided numbness throughout the day. Loaded with 2g Keppra followed [id number] BID. LTME started. 05/23: Two episodes of left sided paresthesias and left arm ataxia/weakness noted by patient and nursing overnight lasting about 2 minutes each. Nurse reports event monitor was pushed on LTME. Events did not have correlation on LTME. 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 Findings concerning for RCVS vs vascultitis. Nimotop stopped, started on Verapamil andSolumedrol 1g QD x3 days. Serum vasculitis panel sent, LP attempt at bedside unsuccessful. Last 24h: Reports headache is worse at night, improved with PRN Roxicodone. Rates headache a 4 on a 0-10 scale this morning. Reports 3 short episodes of left sided numbness and tingling and left arm ataxia overnight. She feels it is more focused in her left arm recently. On exam this morning, patient remains neurologically intact. Plan for LP in IR today. Vasculitis panel pending but TSH, ESR, and CRP normal, negative Hepatitis panel. CURRENT MEDICATIONS: SCHEDULED MEDICATIONS: losartan 50 mg Oral Daily verapamil 40 mg Oral 3 times per day methylPREDNISolone (SOLU-MEDROL) IVPB 1,000 mg Intravenous Daily atorvastatin 10 mg Oral Nightly [Held by provider] enoxaparin 40 mg Subcutaneous Daily insulin lispro 0-6 Units Subcutaneous TID WC insulin lispro 0-3 Units Subcutaneous Nightly famotidine (PEPCID) injection 20 mg Intravenous BID sennosides-docusate sodium 2 tablet Oral Daily fluticasone 1 spray Each Nostril Daily levETIRAcetam 500 mg Oral BID sodium chloride flush 10 mL Intravenous 2 times per day CONTINUOUS INFUSIONS: dextrose sodium chloride 100 mL/hr at 05/25/19 0629 PRN MEDICATIONS: oxyCODONE, glucose, dextrose, glucagon (rDNA), dextrose, acetaminophen, hydrALAZINE, benzonatate, sodium chloride flush, sodium chloride flush, magnesium sulfate, acetaminophen, perflutren lipid microspheres, promethazine OR ondansetron, labetalol VITALS: Temperature Range: Temp: 98.2 F (36.8 C) Temp Av F (36.7 C) Min: 97.7 F (36.5 C) Max: 98.2 F (36.8 C) BP Range: Systolic (24hrs), Av , Min:102 , Max:171 Diastolic (24hrs), Av, Min:45, Max:91 Pulse Range: Pulse Av.6 Min: 49 Max: 80 Respiration Range: Resp Av.9 Min: 11 Max: 26 Current Pulse Ox: SpO2: 95 % 24HR Pulse Ox Range: SpO2 Av.7 % Min: 92 % Max: 97 % Patient Vitals for the past 12 hrs: BP Temp Temp src Pulse Resp SpO2 05/25/19 0440 (!) 157/66 98.2 F (36.8 C) Oral 62 16 95 % 05/25/19 0022 (!) 155/91 98.1 F (36.7 C) Oral 69 16 94 % 05/24/19 2303 (!) 156/54 73 21 96 % 05/24/19 2300 (!) 163/53 72 20 05/24/19 2203 102/72 80 26 94 % 05/24/19 2103 95 % Estimated body mass index is 31.93 kg/m as calculated from the following: Height as of this encounter: 5' 8 (1.727 m). Weight as of this encounter: 210 lb (95.3 kg). []<16 Severe malnutrition []16 16.99 Moderate malnutrition []17 18.49 Mild malnutrition []18.5 24.9 Normal []25 29.9 Overweight (not obese) [x]30 34.9 Obese class 1 (Low Risk) []35 39.9 Obese class 2 (Moderate Risk) []?40 Obese class 3 (High Risk) RECENT LABS: Lab Results Component Value Date WBC 14.5 (H) 05/25/2019 HGB 13.7 05/25/2019 HCT 42.5 05/25/2019 PLT 288 05/25/2019 CHOL 150 05/23/2019 TRIG 226 (H) 05/23/2019 HDL 31 (L) 05/23/2019 NA 138 05/25/2019 K 4.3 05/25/2019 CL 109 (H) 05/25/2019 CREATININE 0.54 05/25/2019 BUN 17 05/25/2019 CO2 17 (L) 05/25/2019 TSH 3.52 05/24/2019 INR 1.0 05/23/2019 LABA1C 5.5 05/23/2019 24 HOUR INTAKE/OUTPUT: Intake/Output Summary (Last 24 hours) at 05/25/2019 0805 Last data filed at 05/25/2019 0612 Gross per 24 hour Intake 2011 ml Output Net 2011 ml IMAGING: Xr Chest Portable Result Date: 05/24/2019 No acute cardiopulmonary process. Cta Head Neck W Contrast Result Date: 05/22/2019 No cerebral aneurysm or vascular malformation visualized. No flow limiting stenosis or large vesselocclusion detected within the head or neck. Mri Brain W Wo Contrast Result Date: 05/22/2019 Subarachnoid hemorrhage central sulcus on the right. Small extra-axial hemorrhage on the right seenon CT today is less conspicuous. At least 4 white matter foci within the centrum semiovale on the left of uncertain significance. Follow-up recommended. Bilateral mastoid effusions. RECOMMENDATIONS: The findings were sent to the Radiology Results Communication Center at 7:52 pm on 05/22/2019to be communicated to a licensed caregiver. Case discussed with Dr. Iqbal at 7:56 p.m. Vl Transcranial Doppler Complete Result Date: 05/23/2019 Conclusions Summary Normal bilateral transcranial Doppler. Labs and Images reviewed with: [x] Dr. Arleth Wilder [] Dr. Cecilio Sherman [] Dr. James Ramsey [] There are no new interval images to review. PHYSICAL EXAM CONSTITUTIONAL: Well developed, well nourished. Alert and oriented x 3, in no acute distress. GCS 15. Nontoxic. No dysarthria. No aphasia. HEAD: normocephalic, atraumatic EYES: PERRL, EOMI. ENT: moist mucous membranes NECK: supple, symmetric LUNGS: Equal air entry bilaterally, clear CARDIOVASCULAR: normal s1 / s2, RRR, distal pulses intact ABDOMEN: Soft, no rigidity, normal bowel sounds NEUROLOGIC: Mental Status: A & O x3, Awake Cranial Nerves: cranial nerves II-XII are grossly intact Motor Exam: Drift: absent Tone: normal Motor exam is symmetrical 5 out of 5 all extremities bilaterally Sensory: Touch: Right Upper Extremity: normal Left Upper Extremity: normal Right Lower Extremity: normal Left Lower Extremity: normal Coordination/Dysmetria: Heel to Moreno: Right: normal Left: normal Finger to Nose: Right: normal Left: normal DRAINS: [x] There are no drains for Neuro Critical Care to monitor at this time. ASSESSMENT AND PLAN: The patient is a 58 yo female with a history of HTN, HLD, and depression on SSRI who was admitted to the Neuro ICU for management of SAH and SDH. Initially presented with reports of intermittent leftsided weakness and paresthesias. Angio concerning for RCVS vs vasculitis. NEUROLOGIC: - Non-traumatic SAH, SDH - Etiology RCVS vs vasculitis - Baseline TCD 3/9 normal, no need for daily TCDs - POD #1 s/p diagnostic cerebral angiogram revealing right MCA distal branches and AMAIRANI distale branches with focal segmental mild to moderate narrowing/vasospasm mostly in the right anterior circulation, distal CARTON WAXING 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 branches with moderate focal segmental vasospasm - Continue Verapamil 40mg Q8h (Nimotop stopped), Solumedrol 1g QD x3 days (day 2/3) - F/U Vasculitis panel - LP via IR today - Keep off SSRI, follow up outpatient regarding depression - Neuro Endovascular following; plan for repeat CTA vs cerebral angio in about 2 weeks - Goal SBP<150 - Neuro checks per protocol CARDIOVASCULAR: - Goal SBP<150 - PRN Hydralazine/Labetalol - History of HTN - Restart home Losartan 50mg QD and Maxzide 37.5-25mg QD - Troponin 7, EKG sinus dagmar - F/U Echocardiogram - Lipid panel; LDL 74, cholesterol 150 - Lipitor to 10mg QHS - Continue telemetry PULMONARY: - Maintaining O2 sats on room air - Recent cough with mild leukocytosis on admission - CXR with no acute process RENAL/FLUID/ELECTROLYTE: - Normal renal functioning - BUN 17/ Creatinine 0.54 - Adequate urine output per nursing - IVF: NS@75cc/hr, stop when no longer NPO - Replace electrolytes PRN - Daily BMP GI/NUTRITION: NUTRITION: Diet NPO, After Midnight Exceptions are: Sips with Meds - Resume general diet post angio - Bowel regimen: Senokot-S daily, Milk of Mag PRN - GI prophylaxis: Not indicated ID: - Afebrile, Tmax 36.9 - Mild leukocytosis likely secondary to steroids (had returned to normal before steroids started), WBC 14.5 - Cough noted, CXR negative - Continue to monitor for fevers - Daily CBC HEME: - H&H 13.7/42.5, stable - Platelets 288 - Daily CBC ENDOCRINE: - Continue to monitor blood glucose, goal <180 - Hemoglobin A1C 5.5 OTHER: - Melatonin 5mg QHS PRN for sleep - PT/OT/ST - PM&R evaluated, too high level for inpatient rehab - Code Status: FULL PROPHYLAXIS: Stress ulcer: N/A DVT PROPHYLAXIS: - SCD sleeves - Thigh High - Resume Lovenox post LP DISPOSITION: [x] Stepdown status, remain in Neuro ICU for now. Consider transfer out of Neuro ICU depending on LP results. We will continue to follow along. For any changes in exam or patient status please contact Neuro Critical Care. Courtney Lion APRN - [facility] Neuro Critical Care Pager [phone] 05/25/2019 8:05 AM Associated attestation - Arleth Wilder MD - 05/25/2019 3:54 PM EDT Neuro critical care: Cerebral angiogram suggestive of RCVS vs vasculitis patterns D/C nimodipine Start Verapamil On Steroids with GI prophylaxis and SSI LP today by IR Maintenance fluids post angiogram today She was on SSRI outpatient that is discontinued. EEG started to capture her spells of left sided paresthesias. 2 spells captured and had no electrographic- epileptic correlation. Left sided brief spells continue. LDL- 72 , drop lipitor to 10 mg TTE pending M Ismael Wilder MD * Karuna Kapadia, CRISTIAN - 05/24/2019 3:30 PM EDT 10cc air removed from safeguard. All air removed at this time. No redness, drainage, swelling, or hematoma noted. Will continue to monitor. * Karuna Kapadia RN - 05/24/2019 2:30 PM EDT 10cc air removed from safegaurd. No redness, drainage, swelling, or hematoma noted. Pt sat up slowly, tolerated well by pt. denies any needs at this time. Will continue to monitor. * Maliha Gu PTA - 05/24/2019 2:28 PM EDT Physical Therapy DATE: 05/24/2019 NAME: Suly Huffman : 1960 Patient not seen this date for Physical Therapy due to: [] Blood transfusion in progress [] Hemodialysis [] Patient Declined [] Spine Precautions [] Strict Bedrest [] Surgery/ Procedure [] Testing [x] Other--angio--then strict BR, ck back 05/24 [] PT being discontinued at this time. Patient independent. No further needs. [] PT being discontinued at this time as the patient has been transferred to palliative care. No further needs. MALIHA GU, AINSLEY * Karuna Kapadia RN - 05/24/2019 1:30 PM EDT 10cc air removed from safegaurd. No redness, drainage, swelling, or hematoma noted. Pt resting comfortably, denies any needs at this time. Will continue to monitor. * Karuna Kapadia RN - 05/24/2019 12:30 PM EDT 10cc air removed from R femoral Safegaurd. No redness, drainage, swelling, or hematoma noted. Will continue to monitor. * Darryn Charles MD - 05/24/2019 12:18 PM EDT Neurosurgery YFN/Resident Daily Progress Note 05/24/2019 12:18 PM Chart reviewed. No acute events overnight. No new complaints. Recently returned from angiogram. Lying flat at this time Vitals: 05/24/19 1030 05/24/19 1035 05/24/19 1040 05/24/19 1141 BP: 129/75 135/62 133/67 Pulse: 52 58 52 Resp: Temp: 97.7 F (36.5 C) TempSrc: Oral SpO2: 97% 94% 95% Weight: Height: PE: AOx3, slightly drowsy post op angio Motor: 5/5 in BUE/BLE She reports a frontal headache Denies blurry vision double vision Denies numbness/tinlging at this time Lab Results Component Value Date WBC 11.0 05/24/2019 HGB 14.0 05/24/2019 HCT 43.2 05/24/2019 PLT 262 05/24/2019 CHOL 150 05/23/2019 TRIG 226 (H) 05/23/2019 HDL 31 (L) 05/23/2019 NA 137 05/24/2019 K 4.0 05/24/2019 CL 104 05/24/2019 CREATININE 0.65 05/24/2019 BUN 17 05/24/2019 CO2 21 05/24/2019 INR 1.0 05/23/2019 LABA1C 5.5 05/23/2019 Radiology Cta Head Neck W Contrast Result Date: 05/22/2019 EXAMINATION: CTA OF THE HEAD AND NECK WITH CONTRAST 05/22/2019 6:56 pm: TECHNIQUE: CTA of the head and neck was performed with the administration of intravenous contrast. Multiplanar reformatted imagesare provided for review. MIP images are provided for review. Stenosis of the internal carotid arteries measured using NASCET criteria. Dose modulation, iterative reconstruction, and/or weight based adjustment of the mA/kV was utilized to reduce the radiation dose to as low as reasonably achievable.COMPARISON: None. HISTORY: ORDERING SYSTEM PROVIDED HISTORY: SAH TECHNOLOGIST PROVIDED HISTORY: SAHReason for Exam: SAH Acuity: Acute Type of Exam: Initial FINDINGS: CTA NECK: AORTIC ARCH/ARCH VESSELS: No dissection or arterial injury. No significant stenosis of the brachiocephalic or subclavian arteries. CAROTID ARTERIES: No dissection, arterial injury, or hemodynamically significant stenosis by NASCET criteria. VERTEBRAL ARTERIES: No dissection, arterial injury, or significant stenosis. SOFTTISSUES: The lung apices are clear. No cervical or superior mediastinal lymphadenopathy. The larynxand pharynx are unremarkable. No acute abnormality of the salivary and thyroid glands. BONES: Degenerative changes of the spine are present. CTA HEAD: ANTERIOR CIRCULATION: No significant stenosis ofthe intracranial internal carotid, anterior cerebral, or middle cerebral arteries. No aneurysm. Bilateral posterior communicating arteries are present with probable origins of both posterior cerebral arteries.. POSTERIOR CIRCULATION: No significant stenosis of the vertebral, basilar, or posterior cerebral arteries. No aneurysm. OTHER: No dural venous sinus thrombosis on this non-dedicated study. BRAIN: See separately dictated noncontrast head CT report. No cerebral aneurysm or vascular malformation visualized. No flow limiting stenosis or large vesselocclusion detected within the head or neck. Mri Brain W Wo Contrast Result Date: 05/22/2019 EXAMINATION: MRI OF THE BRAIN WITHOUT AND WITH CONTRAST 05/22/2019 6:38 pm TECHNIQUE: Multiplanar multisequence MRI of the head/brain was performed without and with the administration of intravenous contrast. COMPARISON: May 22, 2019, [address] brain. HISTORY: ORDERING SYSTEM PROVIDED HISTORY: SAH, SDH TECHNOLOGIST PROVIDED HISTORY: SAH, SDH FINDINGS: INTRACRANIAL STRUCTURES/VENTRICLES: Thereis no acute infarct. No mass effect or midline shift. Curvilinear T2 lengthening within the centralsulcus on the right near the vertex. Minute extra-axial hemorrhage along the convexity on the rightseen on CT is not appreciated. The ventricles and sulci are normal in size and configuration. The sellar/suprasellar regions appear unremarkable. The normal signal voids within the major intracranialvessels appear maintained. No abnormal focus of enhancement is seen within the brain. At least 4 foci within the centrum semiovale on the left measuring 3-4 mm demonstrated T2 density. ORBITS: The visualized portion of the orbits demonstrate no acute abnormality. SINUSES: The visualized paranasal sinuses and mastoid air cells are well aerated. BONES/SOFT TISSUES: The bone marrow signal intensity appears normal. The soft tissues demonstrate no acute abnormality. Fluid signal within the mastoid air cells bilaterally. Subarachnoid hemorrhage central sulcus on the right. Small extra-axial hemorrhage on the right seenon CT today is less conspicuous. At least 4 white matter foci within the centrum semiovale on the left of uncertain significance. Follow-up recommended. Bilateral mastoid effusions. RECOMMENDATIONS: The findings were sent to the Radiology Results Communication Center at 7:52 pm on 05/22/2019to be communicated to a licensed caregiver. Case discussed with Dr. Iqbal at 7:56 p.m. Vl Transcranial Doppler Complete Result Date: 05/23/2019 [facility] Vascular Transcranial Procedure Patient Name NATHANAEL Date of Study 05/23/2019 SULY Farmer Date of 1960 Gender Female Age 58 year(s) Race Room Number 0523 Corporate ID [id number] # Patient Acct [id number] # MR # [id number] Seconds Grader Carole Hooks RVT, [facility] Interpreting Gunnar Morgan Physician Referring Referring Physician SANDRA LOCK APRN-CYLINDER 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 [employer] Nurse Practitioner Additional Comments CLASSIFICATION OF VASOSPASM MEAN MCA VELOCITY ----- MCA/ICA VELOCITY RATIO ------- INTERPRETATION <120 cm/sec less than 3 -- Normal, nonspecific elevation or distal MCA spasm >120 cm/sec 3 to 6 Mild vasospasm of proximal MCA >160 cm/sec 3 to 6 Moderate vasospasm of proximal MCA >200 cm/sec greater than 6 Severe vasospasm of proximal MCA. MEAN BASILAR ARTERY VELOCITY------- INTERPRETATION >60 cm/sec Mild BA vasospasm >90 cm/sec Moderate BA vasospasm >120 cm/sec Severe BA vasospasm.Procedure Type of Study: Cerebral: Transcranial. Indications for Study:Subarachnoid hemorrhage. Patient Status:In Patient. Conclusions Summary Normal bilateral transcranial Doppler. Signature -------- Findings: Right Impression: Left Impression: Right Lindegaard Ratio = 2.93Left Lindegaard Ratio = 2.05 MEAN VELOCITIES: MEAN VELOCITIES: Transtemporal Approach Transtemporal Approach Proximal MCA: 91.2 Proximal MCA: 68.9 Mid MCA: 68.1 Mid MCA: 57 Distal MCA: 58.5 Distal MCA: 62.8 Proximal AMAIRANI: 70.5 Proximal AMAIRANI: 85.1 Mid AMAIRANI: 83.9 Mid AMAIRANI: 105 CARTON WAXING 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: 32.3 CARTON WAXING 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: 22.7 T ICA: 40.4 T ICA: 37.7 Submandibular Approach Submandibular Approach D ICA: 31.2 D ICA: 31.2 Transorbital Approach Transorbital Approach Siphon: 38.5 Siphon: 34.3 Transforamenal Approach Transforamenal Approach Vertebral: 30.8 Vertebral: 29.6 Risk Factors History + + +--------+ !Diagnosis !Date !Comments! + + +--------+ !Cerebrovascular disease !05/22/2019!SAH ! + + +--------+ - The patient's risk factor(s) include: dyslipidemia and arterial hypertension. Velocities are measured in cm/s ; Diameters are measured in cm Right Transcranial Duplex Measurements Right Transforamenal Approach + +-------+-------+--------+-------+-------+--------+ + !Location !PSV !EDV !Vmean !RI !PI !Depth !Direction ! + +-------+-------+--------+-------+-------+--------+ + !Basilar !56.2 !18.9 !31.33 !0.66 !0.99 ! ! ! + +-------+-------+--------+-------+-------+--------+ + Left Transcranial Duplex Measurements Left Transforamenal Approach + +-------+-------+--------+-------+-------+--------+ + !Location !PSV !EDV !Vmean !RI !PI !Depth !Direction! + +-------+-------+--------+-------+-------+--------+ + !Basilar !56.2 !18.9!31.33 !0.66 !0.99 ! ! ! + +-------+-------+--------+-------+-------+--------+ + A/P SAH POD #0 s/o Diagnostic cerebral angiogram - No neurosurgical intervention planned - CTA and MRI brain reviewed with Dr Charles - CTa H/N negative - MRI brain: SAH - EEG completed yesterday by neurology showing no recorded events - Diagnostic Angio completed 05/23 today showing Right MCA distal distal branches and AMAIRANI distal branches with focal segmental mild to moderate narrowing/vasospasm mostly in the right anterior circulation, distal CARTON WAXING 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 branches with moderate focal segmental vasospasm - Neuro critical care possibly plan for LP for CSF studies to r/o possible vasculitis - Neurosurgery will sign off at this time Please contact neurosurgery with any changes in patients neurologic status. Garfield Dumont CNP 05/24/19 12:18 PM I have seen and examined the patient independently. I reviewed all laboratory and imaging studies that are relevant. I agree with the resident's note with the below addendum. * Nancy Pérez OTA - 05/24/2019 11:09 AM EDT Occupational Therapy Occupational Therapy Not Seen Note DATE: 05/24/2019 Name: Suly Huffman : 1960 Patient not available for Occupational Therapy due to: Surgery/Procedure: Pt off for angio then to be on strict 3 hour bed rest Next Scheduled Treatment: Attempt at later date * Lashawn Sullivan DO - 05/24/2019 11:04 AM EDT TODAY: AWAKE & FOLLOWING COMMANDS: [] No [x] Yes INTUBATED: [x] No [] Yes SEDATION/ANALGESIA: [] Propofol gtt [] Versed gtt [] Ativan gtt [x] No Sedation Pain medications: Tylenol PRN, Roxicodone 5mg x 1 FEEDING: Able to take PO? [] No: [x] NPO for: angiogram, transition to PO today after angiogram [] NG/OG [] PEG Tube Feeds: [] Yes: Diet: DVT Prophylaxis: [x] Yes: Start Lovenox this PM [] No rationale: Stress Ulcer Prophylaxis: [x] Yes: pepcid [] Not indicated VASOPRESSORS: [x] No [] Yes [] Levophed [] Dopamine [] Vasopressin [] Dobutamine [] Phenylephrine [] Epinephrine CENTRAL/ARTERIAL LINES: [x] No [] Yes: Location: , Date placed: , Indication: LUI CATHETER: [x] No [] Yes: Location: , Date placed: , Indication: DRAINS: [x] No [] Yes: Location: , Date placed: , Output: Head of Bed: [x] Elevated: [] Flat Glucose management: [x] Not indicated, consistently less than 180 [] Sliding Scale : [] Long Acting: Secondary Stroke PPX: [] Antiplatelet: [x] Statin: lipitor decreased from 40 to 10 daily * Courtney Lion, CLIFFORD - [facility] - 05/24/2019 7:41 AM EDT Daily Progress Note Neuro Critical Care Patient Name: Suly Huffman Patient : 1960 Room/Bed: 23/0523-01 Code Status: FULL Allergies: Allergies Allergen Reactions Augmentin [Amoxicillin-Pot Clavulanate] Diarrhea CHIEF COMPLAINT: Intermittent left sided paresthesias and weakness INTERVAL HISTORY Initial Presentation (Admitted 05/22/19): The patient is a 58 yo female with history of HTN, HLD, and depression who presents as a transfer from [facility] for subarachnoid hemorrhage with 3 mm right subdural hematoma. She states thatsince Thursday she has had intermittent numbness and tingling of her left upper and left lower extremity as well as she what she feels like is loss of control of her left upper extremity. She states that these episodes last approximately 5 to 10 minutes, currently denies any complaints at this time. She adamantly denies any falls, trauma. She denies any headache, nausea, vomiting, blurry vision, chest pain, lightheadedness, dizziness, unsteady gait, dysarthria. She states she has never had symptoms like this in the past. Denies any history of strokes. Patient does state that she has had some nasal congestion for the last few days but denies any fevers, cough, neck stiffness. No antiplatelet or anticoagulation at home. Silva&Andrews: 0, Modified Pollard: 1 Hospital Course: 05/22: Multiple episodes of left sided numbness throughout the day. Loaded with 2g Keppra followed [id number] BID. LTME started. Last 24h: Two episodes of left sided paresthesias and left arm ataxia/weakness noted by patient and nursing overnight lasting about 2 minutes each. Nurse reports event monitor was pushed on LTME. LTME stopped around 0330AM. Patient doing well and is neurologically intact this morning on exam. Complains of mild bifrontal headache rated a 4 on a 0-10 scale. 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 Findings concerning for RCVS vs vascultitis. Nimotop changed to Verapamil and patient started on Solumedrol 1g QD x3 days. Serum vasculitis panel sent, LP planned for later today. CURRENT MEDICATIONS: SCHEDULED MEDICATIONS: fluticasone 1 spray Each Nostril Daily levETIRAcetam 500 mg Oral BID sodium chloride flush 10 mL Intravenous 2 times per day niMODipine 60 mg Oral 6 times per day atorvastatin 40 mg Oral Nightly CONTINUOUS INFUSIONS: sodium chloride 100 mL/hr at 05/23/19 0905 PRN MEDICATIONS: oxyCODONE, benzonatate, sodium chloride flush, sodium chloride flush, magnesium sulfate, acetaminophen, perflutren lipid microspheres, promethazine OR ondansetron, labetalol, hydrALAZINE VITALS: Temperature Range: Temp: 98.4 F (36.9 C) Temp Av F (36.7 C) Min: 97.6 F (36.4 C) Max: 98.6 F (37 C) BP Range: Systolic (24hrs), Av , Min:100 , Max:154 Diastolic (24hrs), Av, Min:40, Max:72 Pulse Range: Pulse Av.9 Min: 47 Max: 58 Respiration Range: Resp Av Min: 12 Max: 19 Current Pulse Ox: SpO2: 92 % 24HR Pulse Ox Range: SpO2 Av.9 % Min: 87 % Max: 99 % Patient Vitals for the past 12 hrs: BP Temp Temp src Pulse Resp SpO2 05/24/19 0703 (!) 100/48 52 13 05/24/19 0603 (!) 133/50 51 12 05/24/19 0503 (!) 146/67 (!) 49 12 05/24/19 0406 (!) 153/61 98.4 F (36.9 C) Oral 53 16 92 % 05/24/19 0303 (!) 129/48 56 17 05/24/19 0203 (!) 132/59 (!) 47 14 05/24/19 0110 (!) 145/60 58 18 05/24/19 0046 (!) 138/50 98 F (36.7 C) Oral 53 17 05/23/19 2303 (!) 114/45 58 18 (!) 87 % 05/23/19 2203 (!) 154/60 57 17 90 % 05/23/193 139/64 57 15 94 % 05/23/192002 116/72 97.7 F (36.5 C) Oral 57 16 98 % Estimated body mass index is 31.93 kg/m as calculated from the following: Height as of this encounter: 5' 8 (1.727 m). Weight as of this encounter: 210 lb (95.3 kg). []<16 Severe malnutrition []16 16.99 Moderate malnutrition []17 18.49 Mild malnutrition []18.5 24.9 Normal []25 29.9 Overweight (not obese) [x]30 34.9 Obese class 1 (Low Risk) []35 39.9 Obese class 2 (Moderate Risk) []?40 Obese class 3 (High Risk) RECENT LABS: Lab Results Component Value Date WBC 11.0 05/24/2019 HGB 14.0 05/24/2019 HCT 43.2 05/24/2019 PLT 262 05/24/2019 CHOL 150 05/23/2019 TRIG 226 (H) 05/23/2019 HDL 31 (L) 05/23/2019 NA 137 05/24/2019 K 4.0 05/24/2019 CL 104 05/24/2019 CREATININE 0.65 05/24/2019 BUN 17 05/24/2019 CO2 21 05/24/2019 INR 1.0 05/23/2019 LABA1C 5.5 05/23/2019 24 HOUR INTAKE/OUTPUT: Intake/Output Summary (Last 24 hours) at 05/24/2019 0742 Last data filed at 05/23/2019 1721 Gross per 24 hour Intake 1997 ml Output Net 1998 ml IMAGING: Cta Head Neck W Contrast Result Date: 05/22/2019 No cerebral aneurysm or vascular malformation visualized. No flow limiting stenosis or large vesselocclusion detected within the head or neck. Mri Brain W Wo Contrast Result Date: 05/22/2019 Subarachnoid hemorrhage central sulcus on the right. Small extra-axial hemorrhage on the right seenon CT today is less conspicuous. At least 4 white matter foci within the centrum semiovale on the left of uncertain significance. Follow-up recommended. Bilateral mastoid effusions. RECOMMENDATIONS: The findings were sent to the Radiology Results Communication Center at 7:52 pm on 05/22/2019to be communicated to a licensed caregiver. Case discussed with Dr. Iqbal at 7:56 p.m. Vl Transcranial Doppler Complete Result Date: 05/23/2019 Conclusions Summary Normal bilateral transcranial Doppler. Labs and Images reviewed with: [x] Dr. Arleth Wilder [] Dr. Cecilio Sherman [] Dr. James Ramsey [] There are no new interval images to review. PHYSICAL EXAM CONSTITUTIONAL: Well developed, well nourished. Alert and oriented x 3, in no acute distress. GCS 15. Nontoxic. No dysarthria. No aphasia. HEAD: normocephalic, atraumatic EYES: PERRL, EOMI. ENT: moist mucous membranes NECK: supple, symmetric LUNGS: Equal air entry bilaterally, clear CARDIOVASCULAR: normal s1 / s2, RRR, distal pulses intact ABDOMEN: Soft, no rigidity, normal bowel sounds NEUROLOGIC: Mental Status: A & O x3, Awake Cranial Nerves: cranial nerves II-XII are grossly intact Motor Exam: Drift: absent Tone: normal Motor exam is symmetrical 5 out of 5 all extremities bilaterally Sensory: Touch: Right Upper Extremity: normal Left Upper Extremity: normal Right Lower Extremity: normal Left Lower Extremity: normal Coordination/Dysmetria: Heel to Moreno: Right: normal Left: normal Finger to Nose: Right: normal Left: normal NIH Stroke Scale Total (if not done complete detailed one below): 1a. Level of consciousness: 0 - alert; keenly responsive 1b. Level of consciousness questions: 0 - answers both questions correctly 1c. Level of consciousness questions: 0 - performs both tasks correctly 2. Best Gaze: 0 - normal 3. Visual: 0 - no visual loss 4. Facial Palsy: 0 - normal symmetric movement 5a. Motor left arm: 0 - no drift, limb holds 90 (or 45) degrees for full 10 seconds 5b. Motor right arm: 0 - no drift, limb holds 90 (or 45) degrees for full 10 seconds 6a. Motor left le - no drift; leg holds 30 degree position for full 5 seconds 6b. Motor right le - no drift; leg holds 30 degree position for full 5 seconds 7. Limb Ataxia: 0 - absent 8. Sensory: 0 - normal; no sensory loss 9. Best Language: 0 - no aphasia, normal 10. Dysarthria: 0 - normal 11. Extinction and Inattention: 0 - no abnormality TOTAL: 0 DRAINS: [x] There are no drains for Neuro Critical Care to monitor at this time. ASSESSMENT AND PLAN: The patient is a 58 yo female with a history of HTN, HLD, and depression on SSRI who was admitted to the Neuro ICU for management of SAH and SDH. Initially presented with reports of intermittent leftsided weakness and paresthesias. Angio concerning for RCVS vs vasculitis. 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 WAXING 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 branches with moderate focal segmental vasospasm - Started on Verapamil 40mg Q8h (Nimotop stopped), Solumedrol 1g QD x3 days - F/U Vasculitis panel - LP this afternoon - Keep off SSRI, follow up outpatient regarding depression - Neuro Endovascular following; plan for repeat CTA vs cerebral angio in about 2 weeks - Goal SBP<150 - Neuro checks per protocol CARDIOVASCULAR: - Goal SBP<150 - PRN Hydralazine/Labetalol - History of HTN - Hold home antihypertensives for now, restart based on blood pressure trend - Troponin 7, EKG sinus dagmar - F/U Echocardiogram - Lipid panel; LDL 74, cholesterol 150 - Decrease Lipitor to 10mg QHS - Continue telemetry PULMONARY: - Maintaining O2 sats on room air - Recent cough with mild leukocytosis on admission - CXR with no acute process RENAL/FLUID/ELECTROLYTE: - Normal renal functioning - BUN 17/ Creatinine 0.65 - Adequate urine output per nursing - IVF: Continue NS @100cc/hr post angio/contrast, stop later today when eating and drinking - Replace electrolytes PRN - Daily BMP GI/NUTRITION: NUTRITION: Diet NPO, After Midnight Exceptions are: Sips with Meds - Resume general diet post angio - Bowel regimen: Senokot-S daily, Milk of Mag PRN - GI prophylaxis: Not indicated ID: - Afebrile, Tmax 36.9 - No leukocytosis, WBC 11.0 - No signs/symptoms of infection - Continue to monitor for fevers - Daily CBC HEME: - H&H 14.0/43.2 - Platelets 262 - Daily CBC ENDOCRINE: - Continue to monitor blood glucose, goal <180 - Hemoglobin A1C 5.5 OTHER: - PT/OT/ST - Code Status: FULL PROPHYLAXIS: Stress ulcer: N/A DVT PROPHYLAXIS: - SCD sleeves - Thigh High - SWATHI stockings - Thigh High - OK to start Lovenox tonight post LP DISPOSITION: [x] To remain ICU for close neurological monitoring in setting of SAH. We will continue to follow along. For any changes in exam or patient status please contact Neuro Critical Care. Courtney Lion APRN - CYLINDER 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 [employer] Neuro Critical Care Pager [phone] 05/24/2019 7:42 AM Associated attestation - Arleth Wilder MD - 05/24/2019 4:55 PM EDT Neuro critical care: Cerebral angiogram this morning suggestive of RCVS vs vasculitis patterns Send serology for vasculitis studies D/C nimodipine Start Verapamil Start steroids with GI prophylaxis and SSI LP today Maintenance fluids post angiogram today She was on SSRI outpatient that is discontinued. EEG started to capture her spells of left sided paresthesias. 2 spells captured and had no electrographic- epileptic correlation LDL- 72 , drop lipitor to 10 mg TTE pending Marleny Wilder MD * Karolina Wesley - 05/23/2019 7:40 PM EDT ALTM started * Blanka Alas, PT - 05/23/2019 11:34 AM EDT Physical Therapy Facility/Department: [address] Initial Assessment NAME: Suly Huffman : 1960 Chief Complaint Patient presents with Headache Anterior headache Numbness Intermittent LUE and LLE numbness and tingling since Thursday, SAH on CT Date of Service: 05/23/2019 Discharge Recommendations: Further therapy recommended at discharge if ataxia persists. PT Equipment Recommendations Equipment Needed: No Assessment Body structures, Functions, Activity limitations: Decreased functional mobility ;Decreased balance;Decreased strength;Decreased fine motor control;Decreased coordination Assessment: The pt ambulated 200ft with CGA for safety, no LOB noted. Pt demonstrates mild deficitsin gait and balance and would benefit from continued acute PT to progress toward prior level of mobility. Prognosis: Good Decision Making: Medium Complexity PT Education: Goals;Plan of Care;PT Role;General Safety REQUIRES PT FOLLOW UP: Yes Activity Tolerance Activity Tolerance: Patient Tolerated treatment well Patient Diagnosis(es): The primary encounter diagnosis was TIA (transient ischemic attack). Diagnoses of Subarachnoid hemorrhage (HCC) and Subdural hematoma (HCC) were also pertinent to this visit. has a past medical history of Depression, Hyperlipidemia, and Hypertension. has no past surgical history on file. Restrictions Restrictions/Precautions Restrictions/Precautions: General Precautions, Fall Risk, Seizure Required Braces or Orthoses?: No Position Activity Restriction Other position/activity restrictions: up with assist, SBP goal <140 Vision/Hearing Vision: Impaired Vision Exceptions: Wears glasses for reading Hearing: Within functional limits Subjective General Patient assessed for rehabilitation services?: Yes Response To Previous Treatment: Not applicable Family / Caregiver Present: Yes(pt's at bedside) Follows Commands: Within Functional Limits Subjective Subjective: RN and pt agreeable to PT. Pt supine in bed upon arrival with OT present. Pt reports continued abnormal sensation in head and intermittently in LUE. Pain Screening Patient Currently in Pain: Denies Vital Signs Patient Currently in Pain: Denies Orientation Orientation Overall Orientation Status: Within Functional Limits Social/Functional History Social/Functional History Lives With: Spouse Type of Home: House Home Layout: One level, Work area in basement Home Access: Stairs to enter with rails Entrance Stairs - Number of Steps: 6 Entrance Stairs - Rails: Right Bathroom Shower/Tub: Tub/Shower unit Bathroom Toilet: Handicap height Home Equipment: (no DME) ADL Assistance: Independent Homemaking Assistance: Independent Homemaking Responsibilities: Yes Ambulation Assistance: Independent Transfer Assistance: Independent Active Meteorology Teacher: Yes 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 Cognition Cognition Overall Cognitive Status: WFL Objective Joint Mobility Spine: WFL ROM RLE: WFL ROM LLE: WFL ROM RUE: WFL ROM LUE: WFL Strength RLE Strength RLE: WFL Strength LLE Strength LLE: Exception Comment: grossly 5/5 L Hip Flexion: 4/5 Strength RUE Strength RUE: WFL Strength LUE Strength LUE: Exception L Shoulder Flexion: 4+/5 Tone RLE RLE Tone: Normotonic Tone LLE LLE Tone: Normotonic Motor Control Gross Motor?: (mild ataxia noted in L hand and LE) Sensation Overall Sensation Status: WFL(pt denies current numbness and tingling) Bed mobility Supine to Sit: Supervision Scooting: Supervision Comment: Pt supine in bed upon arrival, left standing sinkside with OT upon exit. HOB elevated, useof bedrail. Transfers Sit to Stand: Contact guard assistance Stand to sit: Contact guard assistance Comment: CGA for safety- cues for line awareness Ambulation Ambulation?: Yes Ambulation 1 Surface: level tile Device: No Device Assistance: Contact guard assistance Gait Deviations: Slow Mae;Decreased arm swing;Decreased head and trunk rotation Distance: 100ft + 100ft Comments: Pt reports gait deviations from baseline Stairs/Curb Stairs?: No Balance Posture: Good Sitting - Static: Good Sitting - Dynamic: Good;- Standing - Static: Good;- Standing - Dynamic: Fair;+ Comments: standing balance assessed without AD Plan Plan Times per week: 3-5x/wk Current Treatment Recommendations: Strengthening, ROM, Balance Training, Transfer Training, Functional Mobility Training, Neuromuscular Re-education, Endurance Training, Home Exercise Program, SafetyEducation & Training, Patient/Caregiver Education & Training, Gait Training, Stair training Safety Devices Type of devices: Gait belt, Call light within reach, Nurse notified(left standing in room with OT) Restraints Initially in place: No AM-PAC Score AM-[facility] Inpatient Mobility Raw Score : 20 (05/23/191126) AM-PAC Inpatient T-Scale Score : 47.67 (05/23/191126) Mobility Inpatient CMS 0-100% Score: 35.83 (05/23/191126) Mobility Inpatient CMS G-Code Modifier : CJ (05/23/191126) Goals Short term goals Time Frame for Short term goals: 14 visits Short term goal 1: Perform bed mobility and functional transfers independently Short term goal 2: Ambulate 600ft independently Short term goal 3: Ascend/descend 6 steps with R HR independently Short term goal 4: Demo Good dynamic standing balance Therapy Time Individual Concurrent Group Co-treatment Time In 1017 Time Out 1035 Minutes 18 Timed Code Treatment Minutes: 8 Minutes Blanka Alas PT * Archie Scott OT - 05/23/2019 11:19 AM EDT Occupational Therapy Occupational Therapy Initial Assessment Date: 05/23/2019 Patient Name: Suly Huffman : 1960 Date of Service: 05/23/2019 Discharge Recommendations: Further therapy recommended at discharge. Pt's main deficit is LUE coordination this date, CTA. Pt doing well overall. OT Equipment Recommendations Equipment Needed: Yes Mobility Devices: ADL Assistive Devices ADL Assistive Devices: Transfer Tub Bench Assessment Performance deficits / Impairments: Decreased functional mobility ;Decreased coordination;Decreasedfine motor control;Decreased strength;Decreased balance;Decreased ADL status;Decreased high-level IADLs Prognosis: Good Decision Making: Medium Complexity OT Education: OT Role;Plan of Care;ADL Adaptive Strategies REQUIRES OT FOLLOW UP: Yes Activity Tolerance Activity Tolerance: Patient Tolerated treatment well Safety Devices Safety Devices in place: Yes Type of devices: All fall risk precautions in place;Call light within reach;Left in bed;Nurse notified;Gait belt Restraints Initially in place: No Patient Diagnosis(es): The primary encounter diagnosis was TIA (transient ischemic attack). Diagnoses of Subarachnoid hemorrhage (HCC) and Subdural hematoma (HCC) were also pertinent to this visit. has a past medical history of Depression, Hyperlipidemia, and Hypertension. has no past surgical history on file. Restrictions Restrictions/Precautions Restrictions/Precautions: General Precautions, Fall Risk, Seizure Required Braces or Orthoses?: No Position Activity Restriction Other position/activity restrictions: up with assist, SBP goal <140 Subjective General Patient assessed for rehabilitation services?: Yes Family / Caregiver Present: Yes(Spouse) Diagnosis: SDH/SAH, L sided numbness Patient Currently in Pain: Denies Pain Assessment Pain Assessment: 0-10 Pain Level: 0 Vital Signs Pulse: 52 Resp: 18 BP: 122/70 MAP (mmHg): 88 Level of Consciousness: Alert Patient Currently in Pain: Denies Oxygen Therapy SpO2: 95 % Social/Functional History Social/Functional History Lives With: Spouse Type of Home: House Home Layout: One level, Work area in basement Home Access: Stairs to enter with rails Entrance Stairs - Number of Steps: 6 Entrance Stairs - Rails: Right Bathroom Shower/Tub: Tub/Shower unit Bathroom Toilet: Handicap height Home Equipment: (no DME) ADL Assistance: Independent Homemaking Assistance: Independent Homemaking Responsibilities: Yes Ambulation Assistance: Independent Transfer Assistance: Independent Active Meteorology Teacher: Yes 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 Objective Vision: Impaired Vision Exceptions: Wears glasses for reading Hearing: Within functional limits Orientation Overall Orientation Status: Within Functional Limits Balance Sitting Balance: Modified independent (While sitting EOB first time pt received meds from RN, then pt had an episode of feeling faint and L numbness, pt was returned to supine and symptoms subsided within 4 min, RN present) Standing Balance: Supervision Standing Balance Time: 14 min Activity: Pt stood bedside, sinkside, func mob to/from bathroom Functional Mobility Functional - Mobility Device: No device Activity: To/from bathroom Assist Level: Supervision Functional Mobility Comments: No major LOB or safety concerns noted, picked object from floor with CGA Toilet Transfers Toilet - Technique: Ambulating Equipment Used: Grab bars Toilet Transfer: Modified independent ADL Feeding: Modified independent ;Increased time to complete Grooming: Supervision;Increased time to complete UE Bathing: Supervision;Increased time to complete LE Bathing: Supervision;Increased time to complete UE Dressing: Supervision;Increased time to complete LE Dressing: Supervision;Increased time to complete Toileting: Increased time to complete;Modified independent Additional Comments: Pt sat on toilet to urinate, performed own nash-care sitting, pressed flush lever with foot, stood sinkside for hand/oral/hair care, L hand coordination in pt's main concerns Tone RUE RUE Tone: Normotonic Tone LUE LUE Tone: Normotonic Coordination Movements Are Fluid And Coordinated: No Coordination and Movement description: Left UE;Decreased accuracy;Fine motor impairments;Decreased speed Quality of Movement Other Comment: Pt demo'd poor [id number] test after episode this date, pt performed FM coordination activity for ~7 min using only L hand with some difficulty, CTA Bed mobility Supine to Sit: Supervision Sit to Supine: Modified independent Scooting: Independent Comment: Pt supine in bed upon arrival/exit this date Transfers Sit to stand: Supervision Stand to sit: Modified independent Cognition Overall Cognitive Status: WFL Sensation Overall Sensation Status: WFL LUE AROM (degrees) LUE AROM : WFL RUE AROM (degrees) RUE AROM : WFL LUE Strength Gross LUE Strength: WFL L Shoulder Flex: 4+/5 L Elbow Flex: 5/5 L Elbow Ext: 5/5 L Hand General: 5/5 RUE Strength Gross RUE Strength: WFL R Shoulder Flex: 4+/5 R Elbow Flex: 5/5 R Elbow Ext: 5/5 R Hand General: 5/5 Plan Plan Times per week: 3-4x Current Treatment Recommendations: Neuromuscular Re-education, Home Management Training, Self-Care / ADL, Patient/Caregiver Education & Training, Equipment Evaluation, Education, & procurement, Balance Training [facility] Inpatient Daily Activity Raw Score: 20 (05/23/191114) [facility] Inpatient ADL T-Scale Score : 42.03 (05/23/191114) ADL Inpatient CMS 0-100% Score: 38.32 (05/23/191114) ADL Inpatient CMS G-Code Modifier : CJ (05/23/191114) Goals Short term goals Time Frame for Short term goals: Pt will by discharge Short term goal 1: demo ADL UB/LB dressing/bathing activity (I) Short term goal 2: demo FM coordination activity using only LUE for 10 min+ to promote ADL performance Short term goal 3: demo good safety awareness during func mob around room (I) Short term goal 4: demo bending/reaching func activity while standing (I) Therapy Time Individual Concurrent Group Co-treatment Time In 1003 Time Out 1050 Minutes 47 Archie Scott OTR/L * Radha Johnston MD - 05/23/2019 11:01 AM EDT TODAY: AWAKE & FOLLOWING COMMANDS: [] No [x] Yes INTUBATED: [x] No [] Yes SEDATION/ANALGESIA: [] Propofol gtt [] Versed gtt [] Ativan gtt [x] No Sedation Pain medications: FEEDING: Able to take PO? [] No: [x] NPO for: angiogram [] NG/OG [] PEG Tube Feeds: [] Yes: Diet: DVT Prophylaxis: [] Yes: [x] No rationale: bleeding risk Stress Ulcer Prophylaxis: [] Yes: [x] Not indicated VASOPRESSORS: [x] No [] Yes [] Levophed [] Dopamine [] Vasopressin [] Dobutamine [] Phenylephrine [] Epinephrine CENTRAL/ARTERIAL LINES: [x] No [] Yes: Location: , Date placed: , Indication: LUI CATHETER: [x] No [] Yes: Location: , Date placed: , Indication: DRAINS: [x] No [] Yes: Location: , Date placed: , Output: Head of Bed: [x] Elevated: [] Flat Glucose management: [x] Not indicated, consistently less than 180 [] Sliding Scale : [] Long Acting: Secondary Stroke PPX: [] Antiplatelet: [x] Statin: lipitor * Diamond Barnes - 05/23/2019 9:33 AM EDT Speech Language Pathology Facility/Department: [address] Initial Speech/Language/Cognitive Assessment NAME: Suly Huffman : 1960 ADMISSION DATE: 05/22/2019 ADMITTING DIAGNOSIS: has Subarachnoid hemorrhage (HCC) on their problem list. Date of Eval: 05/23/2019 Evaluating Therapist: Diamond Barnes Primary Complaint: The patient is a 58 y.o. female presented as a transfer from [facility] after being found tohave subarachnoid hemorrhage and 3 mm right subdural hematoma. Patient with past medical history ofdepression, hypertension, hyperlipidemia. Patient on no anticoagulation or antiplatelets. She states that since Thursday she has had intermittent numbness and tingling of her left upper and left lower extremity as well as she what she feels like is loss of control of her left upper extremity. She states that these episodes last approximately 5 to 10 minutes, currently denies any complaints at this time. She adamantly denies any falls, trauma. She denies any headache, nausea, vomiting, blurry vision, chest pain, lightheadedness, dizziness, unsteady gait, dysarthria. She states she has never had symptoms like this in the past. Denies any history of strokes. Patient does state that she has had some nasal congestion for the last few days but denies any fevers, cough, neck stiffness. Pain: Pain Assessment Pain Assessment: 0-10 Pain Level: 0/10 Assessment: Pt presents with no apparent cognitive deficits at this time. No dysarthria noted, no oral motor deficits. No further ST is recommended. Verbal and written education provided. Recommendations: Requires SALESPERSON FURS Intervention: No Plan: Goals: Patient/family involved in developing goals and treatment plan: yes Subjective: General Chart Reviewed: Yes Family / Caregiver Present: Yes Social/Functional History Lives With: Spouse Vision Vision: Within Functional Limits Hearing Hearing: Within functional limits Objective: Oral/Motor Oral Motor: Within functional limits Auditory Comprehension Comprehension: Within Functional Limits Expression Primary Mode of Expression: Verbal Verbal Expression Verbal Expression: Within functional limits Motor Speech Motor Speech: Within Functional Limits Cognition: Orientation Overall Orientation Status: Within Normal Limits Attention Attention: Within Functional Limits Memory Memory: Within Funtional Limits Problem Solving Problem Solving: Within Functional Limits Safety/Judgement Safety/Judgement: Within Functional Limits Prognosis: Speech Therapy Prognosis Prognosis: Fair Individuals consulted Consulted and agree with results and recommendations: Patient Education: Patient Education Response: Verbalizes understanding Therapy Time: Individual Concurrent Group Co-treatment Time In 914 Time Out 09 Minutes 11 Completed by: Diamond Barnes, Acoustical Installer Clinician Cosigned By: Ashlee Grimm M.S.CCC/SALESPERSON FURS 05/23/2019 9:34 AM * Amita Navarro RCP - 05/23/2019 8:35 AM EDT Smoking Cessation - topics covered [] Health Risks [] Benefits of Quitting [] Smoking Cessation [x] Patient has no history of tobacco use per note in significant history. [] Patient is former smoker per note in significant history. Patient quit in [x] No need for tobacco cessation education. [] Booklet given [] Patient verbalizes understanding. [] Patient denies need for tobacco cessation education. [] Unable to meet with patient today. Will follow up as able. AMITA NAVARRO 8:35 AM * Sandra Lock, STRAIGHTENER HAND - CYLINDER 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 [employer] - 05/23/2019 8:26 AM EDT Daily Progress Note Neuro Critical Care Patient Name: Suly Huffman Patient : 1960 Room/Bed: 0523/0523-01 Code Status: Full Allergies: Allergies Allergen Reactions Augmentin [Amoxicillin-Pot Clavulanate] Diarrhea CHIEF COMPLAINT: Left sided numbness INTERVAL HISTORY Initial Presentation (Admitted 05/22/19): The patient is a 58 yo female with history of HTN, HLD, and depression who presents as a transfer from [facility] for subarachnoid hemorrhage with 3 mm right subdural hematoma. She states thatsince Thursday she has had intermittent numbness and tingling of her left upper and left lower extremity as well as she what she feels like is loss of control of her left upper extremity. She states that these episodes last approximately 5 to 10 minutes, currently denies any complaints at this time. She adamantly denies any falls, trauma. She denies any headache, nausea, vomiting, blurry vision, chest pain, lightheadedness, dizziness, unsteady gait, dysarthria. She states she has never had symptoms like this in the past. Denies any history of strokes. Patient does state that she has had some nasal congestion for the last few days but denies any fevers, cough, neck stiffness. No antiplatelet or anticoagulation at home. For SAH Silva&Andrews: 0, Modified Pollard: 1 Last 24h: No acute events overnight. Patient had multiple episodes of left sided numbness throughout day, loaded with 2 grams keppra. Will obtain EEG and capture an episode to further evaluate. NPO after midnight for diagnostic angiogram tomorrow, will determine need for MRV based on angiogram findings. CURRENT MEDICATIONS: SCHEDULED MEDICATIONS: fluticasone 1 spray Each Nostril Daily sodium chloride flush 10 mL Intravenous 2 times per day levetiracetam 500 mg Intravenous Q12H niMODipine 60 mg Oral 6 times per day atorvastatin 40 mg Oral Nightly CONTINUOUS INFUSIONS: sodium chloride 100 mL/hr at 05/22/19 2213 PRN MEDICATIONS: benzonatate, sodium chloride flush, sodium chloride flush, magnesium sulfate, acetaminophen, perflutren lipid microspheres, promethazine OR ondansetron, labetalol, hydrALAZINE VITALS: Temperature Range: Temp: 97.6 F (36.4 C) Temp Av F (36.7 C) Min: 97.6 F (36.4 C) Max: 98.4 F (36.9 C) BP Range: Systolic (24hrs), Av , Min:115 , Max:205 Diastolic (24hrs), Av, Min:52, Max:81 Pulse Range: Pulse Av.3 Min: 46 Max: 58 Respiration Range: Resp Av.7 Min: 14 Max: 22 Current Pulse Ox: SpO2: 99 % 24HR Pulse Ox Range: SpO2 Av.9 % Min: 91 % Max: 100 % Patient Vitals for the past 12 hrs: BP Temp Temp src Pulse Resp SpO2 Height Weight 05/23/19 0800 97.6 F (36.4 C) Oral 52 17 99 % 05/23/19 0700 52 16 99 % 05/23/19 0603 135/63 51 14 100 % 05/23/19 0507 (!) 115/59 (!) 49 15 99 % 05/23/19 0403 (!) 136/56 98.2 F (36.8 C) Oral 50 14 100 % 05/23/19 0303 (!) 116/52 (!) 46 15 98 % 05/23/19 0203 121/60 50 14 96 % 05/23/19 0103 (!) 129/57 50 15 91 % 05/23/19 0003 (!) 129/56 98.4 F (36.9 C) Oral 53 17 94 % 05/22/19 2303 118/73 55 21 94 % 05/22/19 2203 (!) 143/79 55 20 95 % 05/22/19 2105 (!) 168/75 97.9 F (36.6 C) Oral 58 18 96 % 5' 8 (1.727 m) 210 lb (95.3 kg) Estimated body mass index is 31.93 kg/m as calculated from the following: Height as of this encounter: 5' 8 (1.727 m). Weight as of this encounter: 210 lb (95.3 kg). []<16 Severe malnutrition []16 16.99 Moderate malnutrition []17 18.49 Mild malnutrition []18.5 24.9 Normal []25 29.9 Overweight (not obese) [x]30 34.9 Obese class 1 (Low Risk) []35 39.9 Obese class 2 (Moderate Risk) []?40 Obese class 3 (High Risk) RECENT LABS: Lab Results Component Value Date WBC 14.1 (H) 05/23/2019 HGB 15.0 05/23/2019 HCT 47.1 05/23/2019 PLT 300 05/23/2019 CHOL 150 05/23/2019 TRIG 226 (H) 05/23/2019 HDL 31 (L) 05/23/2019 NA 136 05/23/2019 K 3.9 05/23/2019 CL 99 05/23/2019 CREATININE 0.72 05/23/2019 BUN 15 05/23/2019 CO2 24 05/23/2019 24 HOUR INTAKE/OUTPUT:No intake or output data in the 24 hours ending 05/23/19825 IMAGING: VL TRANSCRANIAL DOPPLER COMPLETE Final Result CTA HEAD NECK W CONTRAST Final Result No cerebral aneurysm or vascular malformation visualized. No flow limiting stenosis or large vessel occlusion detected within the head or neck. MRI BRAIN W WO CONTRAST Final Result Subarachnoid hemorrhage central sulcus on the right. Small extra-axial hemorrhage on the right seen on CT today is less conspicuous. At least 4 white matter foci within the centrum semiovale on the left of uncertain significance. Follow-up recommended. Bilateral mastoid effusions. RECOMMENDATIONS: The findings were sent to the Radiology Results Communication Center at 7:52 pm on 05/22/2019to be communicated to a licensed caregiver. Case discussed with Dr. Iqbal at 7:56 p.m. IR ANGIOGRAM CAROTID C EREBRAL BILATERAL (Results Pending) VL Transcranial Doppler Complete (Results Pending) Labs and Images reviewed with: [x] Dr. Arleth Wilder [] Dr. Cecilio Sherman [] Dr. James Ramsey [] There are no new interval images to review. PHYSICAL EXAM CONSTITUTIONAL: Well developed, well nourished, alert and oriented x 3, in no acute distress. GCS 15. Nontoxic. No dysarthria. No aphasia. HEAD: normocephalic, atraumatic EYES: PERRLA, EOMI. ENT: moist mucous membranes NECK: supple, symmetric LUNGS: Equal air entry bilaterally, clear CARDIOVASCULAR: normal s1 / s2, RRR, distal pulses intact ABDOMEN: Soft, no rigidity NEUROLOGIC: Mental Status: A & O x3,awake Cranial Nerves: cranial nerves II-XII are grossly intact Motor Exam: Drift: present - mild left upper extremity drift Tone: normal Motor exam is symmetrical 5 out of 5 all extremities bilaterally Sensory: Touch: Right Upper Extremity: normal Left Upper Extremity: normal Right Lower Extremity: normal Left Lower Extremity: normal Coordination/Dysmetria: Heel to More[place]: Right: normal Left: normal Finger to Nose: Right: normal Left: abnormal - dysmetria DRAINS: [x] There are no drains for Neuro Critical Care to monitor at this time. ASSESSMENT AND PLAN: This is a 58 y.o. female with complaints of intermittent left upper extremity numbness/weakness andleft lower extremity numbness and was found to have subarachnoid hemorrhage and 3 mm right subduralhematoma PLAN/MEDICAL DECISION MAKING: NEUROLOGIC: - CT Head 05/21: Being uploaded to PACs - MRI Brain 05/21: Subarachnoid hemorrhage central sulcus on the right, small extra-axial hemorrhage on the right, at least 4 white matter foci within the centrum semiovale on the left of uncertain significance - Consider MRV to evaluate for CVT -CTA head and neck 05/21: No cerebral aneurysm or vascular malformation visualized, no flow-limiting stenosis or large vessel occlusion - 1g Keppra load and Keppra 500mg BID - Reloaded with 2g Keppra today, seizures precautions - Obtain EEG - Goal SBP <140 - Nimodipine 60mg q4hrs - Neuro exams per protocol CARDIOVASCULAR: - Goal SBP <140 - labetalol and hydralazine prn - Troponin negative - Lipid Panel: Cholesterol 150, LDL 74 - Lipitor 40mg QHS - ECHO - Continue telemetry PULMONARY: - Maintaining oxygen saturations on room air RENAL/FLUID/ELECTROLYTE: - Normal renal function - Monitor I&Os - Normal Saline @ 100 mLhr - Daily BMP, replace electrolytes prn GI/NUTRITION: NUTRITION: General diet - NPO after midnight - Bowel regimen: MoM, Zofran, - GI prophylaxis: Pepcid ID: - Afebrile, Tmax 36.9 - Mild leukocytosis, trending down, WBC 14.1 - likely reactive - Recent URI, start Flonase and tessalon prn - Daily CBC HEME: - H&H 15.0/47.1 - Platelets 300 - Daily CBC - Hold AC/AP ENDOCRINE: - Continue to monitor blood glucose, goal <180 - F/u A1C OTHER: - PT/OT/ST - Code Status: Full Code PROPHYLAXIS: Stress ulcer: H2 jay DVT PROPHYLAXIS: - SCD sleeves - Thigh High - Hold AC/AP DISPOSITION: [x] To remain ICU: close neurological monitoring [] OK for out of ICU from Neuro Critical Care standpoint We will continue to follow along. For any changes in exam or patient status please contact Neuro Critical Care. Sandra Lock, [employer] [facility] - [facility] Neuro Critical Care Pager [phone] 05/23/2019 8:26 AM Associated attestation - Arleth Wilder MD - 05/24/2019 1:46 PM EDT Neuro critical care Patient admitted to neuro ICU for management of focal cortical subarachnoid hemorrhage. H&P from overnight addended. Marleny Wilder MD * Lela Stephens MD - 05/23/2019 8:06 AM EDT PROGRESS NOTE PATIENT NAME: Suly Huffman DATE: 05/23/2019 SURGEON: Dr. Stephens PRIMARY CARE PHYSICIAN: Eladia Bran MD HD: # 1 ASSESSMENT Patient Active Problem List Diagnosis Subarachnoid hemorrhage (HCC) MEDICAL DECISION MAKING AND PLAN 1. Medical and supportive care per primary. 2. No acute traumatic injuries. Pt A&O this am, continues to deny trauma, and no evidence on exams. Trauma surgery to sign off at this time. SUBJECTIVE Suly Huffman is unchanged since yesterday. Had additional episode left sided numbness and weakness overnight, resolved after 5-10 min. This am no new complaints. No weakness, numbness or tingling. Vision intact. Afebrile. OBJECTIVE VITALS: Temp: Temp: 98.2 F (36.8 C)Temp Av.1 F (36.7 C) Min: 97.8 F (36.6 C) Max: 98.4 F (36.9C) BP Systolic (24hrs), Av , Min:115 , Max:205 Diastolic (24hrs), Av, Min:52, Max:81 Pulse Pulse Av.3 Min: 46 Max: 58 Resp Resp Av.7 Min: 14 Max: 22 Pulse ox SpO2 Av.8 %Min: 91 % Max: 100 % GENERAL: alert, no distress NEURO: CN II_XII grossly intact LUNGS: equal and symmetric chest rise/fall, non-labored HEART: normal S1 and S2 ABDOMEN: soft, non-tender, non-distended and no guarding or peritoneal signs present EXTERMITY: no cyanosis, clubbing or edema No intake/output data recorded. Drain/tube output: No intake/output data recorded. LAB: CBC: Recent Labs 05/23/195305/23/19446 WBC 15.9* 14.1* HGB 14.8 15.0 HCT 47.0 47.1 MCV 94.0 92.9 PLT 296 300 BMP: Recent Labs 05/23/195305/23/19446 NA 134* 136 K 3.4* 3.9 CL 98 99 CO2 23 24 BUN 16 15 CREATININE 0.63 0.72 GLUCOSE 110* 99 COAGS: No results for input(s): APTT, PROT, INR in the last 72 hours. RADIOLOGY: Dimas Chaney DO 05/23/19, 8:07 AM Attending Note I have reviewed the above [facility] resident progress note and I either performed the rushing elements of the medical history and physical exam or was present when the resident performed them. I have discussed the findings, established the care plan and recommendations with resident, TECSS nurse Kenneth and bedside nurse. The following confirms and/or amends the IMPRESSION, MEDICAL DECISION MAKING and PLAN from above. ASSESSMENT Patient Active Problem List Diagnosis Subarachnoid hemorrhage (HCC) MEDICAL DECISION MAKING AND PLAN Non traumatic SAH, no trauma issues identified Lela Stephens MD 05/23/2019 10:20 AM * Becky Dawson RN - 05/23/2019 2:47 AM EDT 0245: pt notified RN she was experiencing another episode of numbness/tingling to LUE. Denies WAHL, dizziness. Pt able to communicate with RN without any other noted decicits. States she can feel RN touching her, but feels numb. She is able to move arm, but has loss of fine motor control. Weak temple marker, and able to weakly push/pull against resistance. Episode lasted less than 5 min * Cuong Barbosa, - 05/22/2019 7:01 PM EDT Trauma Tertiary Survey Admit Date: 05/22/2019 Hospital day 0 Other sdh, sah, iph Past Medical History: Diagnosis Date Depression Hyperlipidemia Hypertension Scheduled Meds: Continuous Infusions: PRN Meds:iohexol, sodium chloride flush Subjective: Patient has no complaints. There is not associated numbness, tingling, weakness. Objective: Patient Vitals for the past 8 hrs: BP Temp Temp src Pulse Resp SpO2 Height Weight 05/22/19 1718 (!) 144/58 54 16 98 % 05/22/19 1702 (!) 151/81 53 14 98 % 05/22/19 1639 52 18 97 % 05/22/19 1637 (!) 177/75 53 22 97 % 05/22/19 1623 (!) 205/78 97.8 F (36.6 C) Oral 54 18 96 % 5' 8 (1.727 m) 210 lb (95.3 kg) No intake/output data recorded. No intake/output data recorded. Radiology:pending PHYSICAL EXAM: GCS: 4 - Opens eyes on own 6 - Follows simple motor commands 5 - Alert and oriented Pupil size: Left 2 mm Right 2 mm Pupil reaction: Yes Wiggles fingers: Left Yes Right Yes Hand grasp: Left normal Right normal Wiggles toes: Left Yes Right Yes Plantar flexion: Left normal Right normal BP (!) 144/58 Pulse 54 Temp 97.8 F (36.6 C) (Oral) Resp 16 Ht 5' 8 (1.727 m) Wt 210 lb (95.3 kg) SpO2 98% BMI 31.93 kg/m General appearance: alert, appears stated age and cooperative Head: Normocephalic, without obvious abnormality, atraumatic Eyes: conjuctiva normal in appearance, eomi, pearlla Ears: external ears normal and symmetric Nose: nares normal Throat: moist mucus membranes Back: symmetric, no curvature. ROM normal. No CVA tenderness. Lungs: clear to auscultation bilaterally Chest wall: no tenderness Heart:RRR Abdomen: soft nontender Extremities: extremities normal, atraumatic, no cyanosis or edema Pulses: 2+ and symmetric Skin: Skin color, texture, turgor normal. No rashes or lesions Neurologic: Grossly normal, CN 2-12 intact Spine: Spine Tenderness ROM Cervical 0 /10 Normal Thoracic 0 /10 Normal Lumbar 0 /10 Normal Musculoskeletal Joint Tenderness Swelling ROM Right shoulder absent absent normal Left shoulder absent absent normal Right elbow absent absent normal Left elbow absent absent normal Right wrist absent absent normal Left wrist absent absent normal Right hand grasp absent absent normal Left hand grasp absent absent normal Right hip absent absent normal Left hip absent absent normal Right knee absent absent normal Left knee absent absent normal Right ankle absent absent normal Left ankle absent absent normal Right foot absent absent normal Left foot absent absent normal CONSULTS: neurosurgery PROCEDURES: none INJURIES: sdh, sah, iph Patient Active Problem List Diagnosis Subarachnoid hemorrhage (HCC) Assessment/Plan: See h and p documented in this encounter Assessments Diagnosis TIA (transient ischemic attack) Unspecified transient cerebral ischemia Subarachnoid hemorrhage (HCC) Subarachnoid hemorrhage Subdural hematoma (HCC) Subdural hemorrhage SAH (subarachnoid hemorrhage) (HCC) Subarachnoid hemorrhage Diagnosis Subarachnoid hemorrhage (HCC) Subarachnoid hemorrhage Diagnosis Vasculitis (HCC) Arteritis, unspecified Additional Source Comments INFORMATION SOURCE (unrecogn ized section and content) DATE CREATED AUTHOR 05/24/2019 [facility] DATE CREATED AUTHOR AUTHOR'S ORGANIZ ATION 06/12/2019 [facility] DATE CREATED AUTHOR AUTHOR'S ORGANIZ ATION 06/14/2019 [facility] DATE CREATED AUTHOR AUTHOR'S ORGANIZ ATION 04/29/2021 [facility] DATE CREATED AUTHOR AUTHOR'S ORGANIZ ATION 09/11/2021 [facility] Special[facility] DATE CREATED AUTHOR AUTHOR'S ORGANIZ ATION 11/15/2022 [facility] DATE CREATED AUTHOR AUTHOR'S ORGANIZ ATION 05/05/2023 [facility] dical Specialists [facility] Reason for Visit (unrecogniz ed section and content) Reason Comments Headache Anterior headache Numbness Intermittent LUE and LLE numbness and tingling since Thursday, SAH on CT Status Reason Specialty Diagnoses / Procedures Referre d By Contact Referred To Contact Diagnoses Subarachnoid hemorrhage (HCC) Cecilio Sherman MD [address] [place] [address] [facility] Status Reason Specialty Diagnoses / Procedures Referre d By Contact Referred To Contact Closed Radiology Diagnoses Subarachnoid hemorrhage (HCC) Procedures CTA HEAD W CONTRAST HC CTA veterinary medical officer, Courtney, [employer] HAND - 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 [address] [facility] [address] [facility] [address] [place] [address] Goals (unrecognized section and content) Goals may be documented in a n alternate section FOR RECORDS PERTAINING TO PATIENTS WHO ARE OR HAVE BEEN ENROLLED IN A CHEMICAL DEPENDENCY/SUBSTANCEABUSE PROGRAM, SOME INFORMATION MAY BE OMITTED. This clinical summary was aggregated from multiple sources. Caution should be exercised in using it in the provision of clinical care. This summary normalizes information from multiple sources, and as a consequence, information in this document may materially change the coding, format and clinical context of patient data. In addition, data may be omitted in some cases. CLINICAL DECISIONS SHOULD BE BASED ON THE PRIMARY CLINICAL RECORDS. [employer] [facility]. provides no warranty or guarantee of the accuracy or completeness of information in this document.
[2023-06-01 14:41] LABS: Potassium 4.1 mmol/L (3.5-5.1)
== END 2023-06-01 13:10 | disposition home or self-care (01) ==
PROVIDERS: PCP Family Medicine; Visit Provider Obstetrics & Gynecology
DX: E87.6 Hypokalemia (principal)
CPT/HCPCS: 36415; 84132

== ENCOUNTER 2023-06-04 11:30 | Day surgery (SDC) | payer OTHER, SELFPAY ==
[2023-05-25 09:19] VITALS: BP 115/66; PULSE 48; RESP 16; TEMP 36.2; O2SAT 99
[2023-05-25 09:26] VITALS: BMI 33.0
[2023-06-04] VITALS (14 sets, daily range): BP systolic 109–152; BP diastolic 64–90; PULSE 50–68; RESP 10–20; TEMP 36.3–36.5; O2SAT 94–99; BMI 32.9
[2023-06-04 11:40] LABS: Basophils Absolute Auto 0.1 10^3/uL (0.0-0.1); Basophils Percent Auto 0.9 % (0.2-2.0); Eosinophils Absolute Auto 0.1 10^3/uL (0.0-0.7); Eosinophils Percent Auto 1.3 % (0.9-7.0); Hematocrit 42.3 % (36.0-48.0); Hemoglobin 13.6 g/dL (12.0-16.0); Immature Granulocytes Abs Auto 0.03 10^3/uL (0.00-0.03); Immature Granulocytes Pct Auto 0.3 % (0.0-0.5); Lymphocytes Absolute Auto 2.7 10^3/uL (1.2-3.8); Lymphocytes Percent Auto 29.1 % (20.5-60.0); Mean Corpuscular HGB Conc 32.2 g/dL (29.9-35.2); Mean Corpuscular Hemoglobin 28.5 pg (26.7-34.0); Mean Corpuscular Volume 88.5 fL (81.0-99.0); Mean Platelet Volume 9.5 fL (9.5-13.5); Monocytes Absolute Auto 0.5 10^3/uL (0.3-0.8); Monocytes Percent Auto 5.1 % (1.7-12.0); Neutrophils Absolute Auto 5.8 10^3/uL (1.4-6.5); Neutrophils Percent Auto 63.3 % (43.0-75.0); Platelet Count 245 10^3/uL (150-450); Red Blood Count 4.78 10^6/uL (4.20-5.40); Red Cell Distribution Width 13.7 % (11.0-15.0); White Blood Count 9.1 10^3/uL (4.0-11.0)
--- OUTSIDE RECORDS SUMMARY | 2023-06-04 11:44 | XMS_ITS | CCD ---
Author Organization [facility] Care Team Providers Care Fitting Room Associate Name Role Phone WADDELL, SELINA S Admitting [...] Admitting Unavailable WADDELL, SELINA S Attending Unavailable FRAKNIEELADIA SOLORZANO Primary Care Unavailable WADDELL, SELINA S Consulting Unavailable WADDELL, SELINA S Admitting Unavailable WADDELL, SELINA S Attending Unavailable ELADIA DAVID Primary Care Unavailable WADDELL, SELINA S Consulting Unavailable CLINKER, YRIS Consulting Unavailable WADDELL, SELINA S Admitting Unavailable WADDELL, SELINA S Attending Unavailable ELADIA DAVID Primary Care Unavailable CLINKER, YRIS Consulting Unavailable AWDDELL, SELINA S Admitting Unavailable WADDELL, SELINA S [...] Unavailable Eladia Bran Primary Care Provi archana MATTHEW VICENTE Attending Unavailable MATTHEW VICENTE Attending Unavailable WHIT GODINEZ Attending Unavailable Hussain Kay II Admitting Unavaila ble Rahul RICARDO, Hussain Cowan Attending Unavaila ble Eladia Burns Primary Care Un available Eladia Burns Referring Un available Allergies Allergy Classification Reported Allergen(s) Allergy Type Date of Onset Reaction(s) Facility (2 sources) Amoxicillin / Clavulanate Drug Allergy 7 [facility] Repository (4 sources) Amoxicillin-Pot Clavulanate Propensity to adverse reactions to drug 0 [place], [place] (2 sources) Amoxicillin; Translations: [amoxicillin] Drug Allergy 1 [facility] (2 sources) Clavulanate; Translations: [clavulanic acid] Drug Allergy 1 [facility] Medications Current Medications Medication Drug Class(es) Dates [...] 2100 docusate sodium 50 mg / sennosides, skilled nursing 8.6 mg oral tablet (1 source) Start: [...] take 1 tablet by mouth once daily Triamterene-Crawford chlorothiazid Active 1 TAB PO Daily January [...] by mouth every six hours Hydrocodone-Acetam inophen ([place]) 5-325 mg Tablet Discontinued 1 TAB PO [...] Start: 05-23-2019 take 1 tablet by ramila th twice daily levETIRAcetam (KEPPRA) 500 MG tablet [...] 05-22-2019 Chronic Other aftercare (1 source) Other intermediate (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; Translations: [OTH BONDERITE OPERATOR CURRENT DRUG THERAPY] Onset: 05-24-2019 Episodic Other [...] VERY IMPORTANT TO YOUR HEALTH. THE CURRENT [place] [employer] GUIDELINES RECOMMENDS ANNUAL MAMMOGRAPHY BEGINNING AT AGE 42 THIS FACILITY USES A REMINDER SYSTEM TO ENSURE ALL PATIENTS RECEIVE REMINDER NOTIFICATIONS AT THE APPROPRIATE TIME BASED ON THE RECOMMENDATIONS OF THIS EXAM. Report reported and signed by Salo Pacheco on 09/10/2021 1532 Normal [facility] Specialist Discharge CCD Assessmenton 0 11-19-2020 Discharge CCD Assessment [facility] Patient: SULY HUFFMAN [address] [place] [address] MR#: [id number] DISCHARGE CCD ASSESSMENT : 64 Service Date: [...] Date and Time Hina Richardson [place] Normal [facility] Anesthesia Noteon 11-17-2020 Anesthesia Note [facility] Patient: SULY HUFFMAN [address] [place] [address] MR#: [id number] ANESTHESIA NOTE : Service Date: 11/17/20 1223 [...] Llamas 11/17/20 1224 Garland Harris MD Normal [facility] BASIC MET PANELon 11-17-2020 Anion gap [Moles/Vol] 12 mmol/L Normal 6-18 [facility] Comment on above: Performed By: #### L 500.19743, L500.84151 ####Test performed at: [place] [id number] Calcium [Mass/Vol] 8.2 mg/dL Low 8.5-10.1 [facility] Comment on above: Performed By: #### L 500.42546, L500.47268 ####Test performed at: [address] [address] Chloride [Moles/Vol] 100 mmol/L Normal 98-107 [facility] Comment on above: Performed By: #### L 500.14891, L500.05952 ####Test performed at: [address] [address] CO2 [Moles/Vol] 27 mmol/L Normal 21-32 [facility] Comment on above: Performed By: #### L 500.92949, L500.98854 ####Test performed at: [address] [address] Creatinine [Mass/Vol] 0.909 mg/dL Normal 0.550-1.020 [facility] Comment on above: Performed By: #### L 500.73484, L500.27092 ####Test performed at: [address] [address] Glucose [Mass/Vol] 190 mg/dL High 70-99 [facility] Comment on above: Result Comment: Fast ing GLUCOSE reference range has been updated per (ADA) [place] [employer]'s recommendation. 06/08/2018 Performed By: #### L 500.03374, L500.99723 ####Test performed at: [address] [address] OSM 289 mosm/kg Normal 270-300 [facility] Comment on above: Performed By: #### L 500.25261, L500.79236 ####Test performed at: [address] [address] Potassium [Moles/Vol] 3.2 mmol/L Critically low 3.5-5.1 [facility] Comment on above: Result Comment: Crit ical Result(s) Called at: 09:36:29 on 11/17/2020 by: Diana Fontaine and read back by: trinh pandey Performed By: #### L 500.97401, L500.29579 ####Test performed at: [address] [address] Sodium [Moles/Vol] 136 mmol/L Normal 136-145 [facility] Comment on above: Performed By: #### L 500.87991, L500.30697 ####Test performed at: [place] [address] Urea nitrogen [Mass/Vol] 17 mg/dL Normal 7-18 [facility] Comment on above: Performed By: #### L 500.73699, L500.61525 ####Test performed at: [place] [address] GFR ESTIMATEon 11-17-2020 IF AMER > 60 Normal > 60 [facility] Comment on above: Result Comment: eGFR (Estimated GFR) Units of measure:mL/min/1.73 meters sq. *CALCULATION REVISED 01/02/2015;IDMS-traceable MDRD equation eGFR is derived from the reexpressed MDRD Study equation using the following parameters: serum creatinine, age, gender and race. An eGFR<60 mL/min/1.73m2 for >3 months is consistent with chronic kidney disease. Refer to KDOQI guidelines for clinical interpretation. Performed By: #### L 500.81318, L500.36822 ####Test performed at: [place] [address] IF non-AFR AMER > 60 Normal > 60 [facility] Comment on above: Performed By: #### L 500.59342, L500.30807 ####Test performed at: [place] [id number] HGB AND HCTon 11-17-2020 Hematocrit (Bld) [Volume fraction] 39.2 % Normal 36.0-48.0 [facility] Comment on above: Performed By: #### L 200.26608 ####Test performed at: [place] [address] Hemoglobin (Bld) [Mass/Vol] 13.4 g/dL Normal 12.0-15.0 [facility] Comment on above: Performed By: #### L 200.13698 ####Test performed at: [place] [address] Internal Med Progress Noteon 11-17-2020 Internal Med Progress Note [facility] Patient: SULY HUFFMAN [address] [address] MR#: [id number] PROGRESS NOTE - Internal Medicine : 64 Service Date: 11/17/20 0556 Assessment/Plan-Electrical Accessories I Assembler al Med Be sure to note changes Be sure to note changes Electronically Signed eSign Date and Time Hina Richardson Residen Normal [facility] Internal Med Progress Note [facility] Patient: SULY HUFFMAN [address] [address] MR#: [id number] PROGRESS NOTE - Internal Medicine : 64 Service Date: 11/17/20 0554 Subjective Primary Resident: Miki Richardson After Hours Call: [phone] Red Team Summary of Stay Mr Huffman, [...] 20 11/17 109 O2 Flow Rate 3.0 11/16 1930 Intake AND Output Verdana 4d 09/04 2300 09/03 2300 Intake Total 1480 480 Output Total 30 230 Balance 1450 250 Intake, IV 1000 Oral 480 480 utput, 30 30 rainage Output, Urine 0 200 Patient 95.45 kg eight Weight PREADMISSION TESTING WGT easurement ethod Assessment/Plan-Electrical Accessories I Assembler al Med Problem List 1. S/P laminectomy [...] po # Hx of unprovoked hemorrhagic CVA, 2019 # Rosacea # Obesity, BMI 32 # [...] Agree with above documentation. The [resident's, PA's, ORCHARDIST's] assessment and plan reflect my input. Discussed with documenting provider and patient. Plan is as outlined above. Electronically Signed eSign Date and Time Hina Richardson Massiel Res Hause-Wardega, Katarzyn a MD 11/17/20 1125 Normal [facility] OT Therapy Recommendationson 11-17-2020 OT Therapy Recommendations [facility] Patient: SULY HUFFMAN [address] [place], [place] [id number] MR#: [id number] OT THERAPY RECOMMENDATIONS : 64 Service Date: 11/17/20 1037 Therapy Recommendations Therapy Recommendations Recommendations Occupational therapy eval complete. Continue acute OT as per POC. Recommend d/c home with family assist. See OT eval for details. Electronically Signed eSign Date and Time Brynn Suero OT [place] 11/17/20 Tammi Nichols OT Normal [facility] PT Therapy Recommendationson 11-17-2020 PT Therapy Recommendations [facility] Patient: SULY HUFFMAN [address] [place], [place] [id number] MR#: [id number] PT THERAPY RECOMMENDATIONS : 64 Service Date: 11/17/20 1123 Therapy Recommendations Therapy Recommendations Recommendations PT eval complete. No further acute PT needs. Recommend d/c home when medically cleared. Electronically Signed eSign Date and Time Bettie Sorensen PT 11/17/20 1123 Normal [facility] z OT Inpatient Evaluationon 11-17-2020 z OT Inpatient Evaluation [facility]: [facility] [place] [id number] MR#: [id number] OT INPATIENT EVALUATION : 64 Inpatient OT HPI Date of Service 11/17/20 Time In: 915 Time Out: 0939 Total Treatment Time (Mins) 23 Visit Reason LUMBAR STENOSIS Surgery Type/Date L4-L5 decompressive laminectomy 11/16/20 Referral Date 11/17/20 Tx Diagnosis: LUMBAGO Insurance Name [employer] Pt is a 59 y/o F [...] ADL Equipment Elev. Toilet Seat w Arms, Cert Pharmacy Tech, Shower Chair Bedroom Location 1st Floor Bathroom [...] Gait Trainin (more content not included)... Normal [facility] z PT Inpatient Discharge Not efraín 11-17-2020 z PT Inpatient Discharge Note [facility] Patient: SULY HUFFMAN [address] [place], [place] [id number] MR#: [id number] PT INPATIENT DISCHARGE NOTE : 64 Service [...] Time Bettie Sorensen PT 11/17/20 1436 Normal [facility] z PT Inpatient Evaluationon 11-17-2020 z PT Inpatient Evaluation [facility] Patient: SULY HUFFMAN [address] [place] [id number] MR#: [id number] PT INPATIENT EVALUATION : 64 Service Date: 11/17/20 1146 Inpatient PT HPI Date of Service 11/17/20 Time In: 914 Time Out: 939 Total Treatment Time (Mins) 25 Room Number 617 Visit Reason LUMBAR STENOSIS Surgery Type: Luis L4-5 decompressive lami Surgery Date: 11/16/20 Referral Date 11/16/20 Tx Diagnosis: LOW BACK PAIN Insurance Name [employer] Course 59 y.o female at [facility] for above sx d/t lumbar stenosis. PT [...] Time Bettie Sorensen PT 11/17/20 1444 Normal [facility] H & Bj 11-16-2020 H & P [facility] Patient: SULY HUFFMAN [address] [place] [address] MR#: [id number] HISTORY and PHYSICAL : Service Date: 11/16/201815 History of Present Illness Source of Information [...] Non-tender Ext (more content not included)... Normal [facility] OPERATIVE REPORTon OPERATIVE REPORT This is a preliminar y report only. This report will be final only after practitioner review and authentication has occurred. NAME: SULY HUFFMAN MR#: [id number] SURGEON: Anil Singer MD DATE OF SURGERY: [...] L3-4 DICTATION ENDS HERE ANIL SINGER MD S/[facility]/[id number] E/S: Electronically Signed [facility] [place] [place] NAME: SULY HUFFMAN MR#: [id number] [address] [place] [address] ACCT: [id number] : 64 OPERATIVE REPORT Normal [facility] OPERATIVE REPORT NAME: SULY HUFFMAN MR#: [id number] SURGEON: Anil Singer MD DATE OF SURGERY: [...] muscles were injected with RECKs. The fascia, [facility] [place] [place] NAME: SULY HUFFMAN MR#: [id number] [address] [place], [place] [address] ACCT: [id number] : 64 OPERATIVE REPORT subcutaneous tissues, and skin were closed in the usual manner. Dressings were applied. The patient was woken, taken to recovery room in excellent condition. There were no complications. ANIL SINGER MD JFS/MODL/[id number] E/S: Anil Singer MD 12/10/20 0937 Electronically Signed [facility] [place] NAME: SULY HUFFMAN MR#: [id number] [address] [place], [place] [address] ACCT: [id number] : 64 OPERATIVE REPORT Normal [facility] Primary Residenton Primary Resident [facility] [place] Pt Name: SULY HUFFMAN MR#: [id number] [address] [place] [address] ACCT: [id number] [place] [id number] : 64 Service Date: 11/16/202024 Primary Resident/Call Primary Resident: Miki Richardson After Hours Call: [phone] Red Team Electronically Signed eSign Date and Time Jean Claude Dalal [place] Resident 11/17/20 1151 Normal [facility] LUMBAR SPINE 2 OR 3 VIEWSon 11-15-2020 LUMBAR SPINE 2 OR 3 VIEWS STUDY: LUMBAR SPINE 2 OR 3 VIEWS; ; 11/16/2020 4:33 pm INDICATION: B/L L4-5 DECOMPRESSION LAMINECTOMY . COMPARISON: No imaging. ACCESSION NUMBER(S): [id number] ORDERING CLINICIAN: Anil Singer FINDINGS: Fluoroscopy time: 5 seconds. 2 intraoperative fluoroscopic still frame images of the lumbar spine were submitted. Images demonstrate localization at the L4-L5 interspace with probe/surgical component. IMPRESSION: Surgical localization at the L4-L5 interspace. Please see operative report regarding procedural details. Normal [facility] CORONAVIRUSon 11-13-2020 SARS-CoV-2 (COVID-19) RNA FERNY+probe [...] on the FDA website: https://www.fda.gov/Me dicalDevices/Safety/ EmergencySituations/uc n086332.htm COVID-19 Negative for COVID-19 (SARS-CoV-2 RNA) Normal [facility] Comment on above: Order Comment: CBN: YESCampus: MAINCOVID Testing: PRE-OP/PROCEDURE SCREENComment: 3AGE at Spec VICENTE 59Report age at specimen VICENTE? YFirst test: UNKNOWNEmployed in Healthcare: NOSymptomatic as defined by CDC: NOHospitalized for COVID-19? NOICU: NOResident in a [facility] Care Setting: NOOrder Date: 11/13/20: Not Performed By: #### M 400.58235 ####Test performed at: [place] [address] COMP META PANELon 11-07-2020 Albumin [Mass/Vol] 3.9 g/dL Normal 3.4-5.0 [facility] Comment on above: Performed By: #### L 500.63442, L500.15401 #### Test performed at: [address] [address] ALK PHOS TOTAL 61 U/L Normal 45-117 [facility] Comment on above: Performed By: #### L 500.21626, L500.01656 #### Test performed at: [address] [address] ALT [Catalytic activity/Vol] 131 U/L High 13-61 [facility] Comment on above: Performed By: #### L 500.32204, L500.65637 #### Test performed at: [address] [address] AST [Catalytic activity/Vol] 126 U/L High 15-37 [facility] Comment on above: Performed By: #### L 500.17542, L500.66369 #### Test performed at: [address] [address] BILI TOTAL 0.4 mg/dL Normal 0.2-1.0 [facility] Comment on above: Performed By: #### L 500.32078, L500.03574 #### Test performed at: [address] [address] Calcium [Mass/Vol] 9.1 mg/dL Normal 8.5-10.1 [facility] Comment on above: Performed By: #### L 500.40059, L500.01798 #### Test performed at: [address] [address] Chloride [Moles/Vol] 102 mmol/L Normal 98-107 [facility] Comment on above: Performed By: #### L 500.94452, L500.76769 #### Test performed at: [address] [address] CO2 [Moles/Vol] 28 mmol/L Normal 21-32 [facility] Comment on above: Performed By: #### L 500.13322, L500.98802 #### Test performed at: [address] [address] Creatinine [Mass/Vol] 0.755 mg/dL Normal 0.550-1.020 [facility] Comment on above: Performed By: #### L 500.56864, L500.18589 #### Test performed at: [address] [address] Glucose [Mass/Vol] 75 mg/dL Normal 70-99 [facility] Comment on above: Result Comment: Fast ing GLUCOSE reference range has been updated per (ADA) [place] [employer]'s recommendation. 06/08/2018 Performed By: #### L 500.27336, L500.86516 #### Test performed at: [address] [address] Potassium [Moles/Vol] 3.6 mmol/L Normal 3.5-5.1 [facility] Comment on above: Performed By: #### L 500.34945, L500.02188 #### Test performed at: [address] [address] Protein [Mass/Vol] 7.1 g/dL Normal 6.4-8.2 [facility] Comment on above: Performed By: #### L 500.78213, L500.09526 #### Test performed at: [address] [address] Sodium [Moles/Vol] 137 mmol/L Normal 136-145 [facility] Comment on above: Performed By: #### L 500.19347, L500.23187 #### Test performed at: [address] [address] Urea nitrogen [Mass/Vol] 18 mg/dL Normal 7-18 [facility] Comment on above: Performed By: #### L 500.87238, L500.98039 #### Test performed at: [place] [address] GFR ESTIMATEon 11-07-2020 IF AMER > 60 Normal > 60 [facility] Comment on above: Result Comment: eGFR (Estimated GFR) Units of measure:mL/min/1.73 meters sq. *CALCULATION REVISED 01/02/2015;IDMS-traceable MDRD equation eGFR is derived from the reexpressed MDRD Study equation using the following parameters: serum creatinine, age, gender and race. An eGFR<60 mL/min/1.73m2 for >3 months is consistent with chronic kidney disease. Refer to KDOQI guidelines for clinical interpretation. Performed By: #### L 500.71359, L500.48813 #### Test performed at: [place] [address] IF non-AFR AMER > 60 Normal > 60 [facility] Comment on above: Performed By: #### L 500.99586, L500.80117 #### Test performed at: [address] [address] CBC W/DIFFon 11-06-2020 BASO ABS 0.1 K/uL Normal 0.0-0.2 [facility] Comment on above: Performed By: #### L 200.89495 #### Test performed at: [address] [address] Basophils/100 WBC (Bld) 0.9 % Normal [facility] Comment on above: Performed By: #### L 200.33999 #### Test performed at: [address] [address] EOS ABS 0.2 K/uL Normal 0.0-0.5 [facility] Comment on above: Performed By: #### L 200.04847 #### Test performed at: [address] [address] Eosinophils/100 WBC (Bld) 2.0 % Normal [facility] Comment on above: Performed By: #### L 200.67314 #### Test performed at: [address] [address] IG % 0.3 % Normal [facility] Comment on above: Performed By: #### L 200.37104 #### Test performed at: [address] [address] IG ABS 0.03 K/uL Normal 0-0.05 [facility] Comment on above: Performed By: #### L 200.27699 #### Test performed at: [address] [address] Lymphocytes (Bld) [#/Vol] 3.3 10*3/uL Normal 1.2-3.5 [facility] Comment on above: Performed By: #### L 200.12725 #### Test performed at: [address] [address] Lymphocytes/100 WBC (Bld) 36.1 % Normal [facility] Comment on above: Performed By: #### L 200.60411 #### Test performed at: [address] [address] MONO ABS 0.7 K/uL Normal 0.0-1.0 [facility] Comment on above: Performed By: #### L 200.54698 #### Test performed at: [address] [address] Monocytes/100 WBC (Bld) 7.9 % Normal [facility] Comment on above: Performed By: #### L 200.94782 #### Test performed at: [address] [address] NEUTROPHIL ABS 4.8 K/uL Normal 1.4-6.6 [facility] Comment on above: Performed By: #### L 200.14605 #### Test performed at: [address] [address] Neutrophils/100 WBC (Bld) 52.8 % Normal [facility] Comment on above: Performed By: #### L 200.34010 #### Test performed at: [address] [address] Erythrocyte distribution width (RBC) [Ratio] 14.1 % Normal 11.5-14.5 [facility] Comment on above: Performed By: #### L 200.33277 #### Test performed at: [address] [address] Hematocrit (Bld) [Volume fraction] 45.7 % Normal 36.0-48.0 [facility] Comment on above: Performed By: #### L 200.49845 #### Test performed at: [address] [address] Hemoglobin (Bld) [Mass/Vol] 14.8 g/dL Normal 12.0-15.0 [facility] Comment on above: Performed By: #### L 200.42700 #### Test performed at: [address] [address] MCH (RBC) [Entitic mass] 30.3 pg Normal 25.4-34.6 [facility] Comment on above: Performed By: #### L 200.86435 #### Test performed at: [address] [address] MCHC (RBC) [Mass/Vol] 32.4 g/dL Normal 31.5-36.5 [facility] Comment on above: Performed By: #### L 200.25962 #### Test performed at: [address] [address] MCV (RBC) [Entitic vol] 93.5 fL Normal 79.0-98.0 [facility] Comment on above: Performed By: #### L 200.96652 #### Test performed at: [address] [address] NRBC # 0.000 K/uL Normal 0-0.012 [facility] Comment on above: Performed By: #### L 200.75863 #### Test performed at: [address] [address] NRBC % 0.0 /100 WBC Normal 0-0.2 [facility] Comment on above: Performed By: #### L 200.47783 #### Test performed at: [address] [address] Platelet mean volume (Bld) [Entitic vol] 10.3 fL Normal 8.7-12.4 [facility] Comment on above: Performed By: #### L 200.13413 #### Test performed at: [address] [address] Platelets (Bld) [#/Vol] 219 10*3/uL Normal 140-440 [facility] Comment on above: Performed By: #### L 200.35772 #### Test performed at: [address] [address] RBC (Bld) [#/Vol] 4.89 10*6/uL Normal 3.5-5.5 [facility] Comment on above: Performed By: #### L 200.00759 #### Test performed at: [address] [address] WBC (Bld) [#/Vol] 9.1 10*3/uL Normal 3.9-11.0 [facility] Comment on above: Performed By: #### L 200.60399 #### Test performed at: [facility] [address] [address] CHEST PA/AP & LATERALon 10-15 CHEST PA/AP & LATERAL STUDY: CHEST PA/AP LATERAL; 11/06/2020 12:57 pm INDICATION: SOB/PAT. COMPARISON: None. ACCESSION NUMBER(S): [id number] ORDERING CLINICIAN: Ricky Adame FINDINGS: The lungs are clear without pleural effusion. Mild cardiomegaly. Otherwise unremarkable mediastinum, pedro, and pulmonary vasculature. IMPRESSION: No active disease in the chest. Normal [facility] CONSULTATION REPORTon 2020 CONSULTATION REPORT NAME: SULY HUFFMAN MR#: [id number] CHIEF MAINTENANCE SUPERVISOR: Ricky Adame MD DATE OF CONSULTATION: 11/06/2020 [...] is cleared for anesthesia with acceptable risk. [facility] [place] NAME: SULY HUFFMAN MR#: [id number] [address] [place] [address] ACCT: [id number] : 64 CONSULTATION Thank you for the courtesy of this consultation. RICKY ADAME MD MS/MODL/[id number] E/S: Ricky Adame MD 11/06/20 6656 Electronically Signed [facility] [place] NAME: SULY HUFFMAN MR#: [id number] [address] [place], [place] [address] ACCT: [id number] : 64 CONSULTATION Normal [facility] OPERATIVE REPORTon OPERATIVE REPORT NAME: SULY HUFFMAN MR#: [id number] SURGEON: Anil Singer MD DATE OF SURGERY: [...] There were no complications. ANIL SINGER MD JFMadi/MODL/[id number] E/S: Anil Singer MD 08/09/20 1207 Electronically Signed [facility] [place] NAME: SULY HUFFMAN MR#: [id number] [address] [place] [address] ACCT: [id number] : 64 OPERATIVE REPORT Normal [facility] CORONAVIRUSon 07-20-2020 SARS-CoV-2 (COVID-19) RNA FERNY+probe [...] on the FDA website: https://www.fda.gov/Me dicalDevices/Safety/ EmergencySituations/uc g993710.htm COVID-19 Negative for COVID-19 (SARS-CoV-2 RNA) Normal [facility] Comment on above: Order Comment: CBN: YES [place]: MAIN COVID Testing: PRE-OP/PROCEDURE SCREEN Comment: 07/24 AGE at Spec VICENTE 59 Report age at specimen VICENTE? Y First test: UNKNOWN Employed in Healthcare: NO Symptomatic as defined by CDC: NO Hospitalized for COVID-19? NO ICU: NO Resident in a Congregated Care Setting: NO Order Date: 07/20/20 : Not Performed By: #### M 400.43623 #### Test performed at: [address] [address] MRI LUMBAR SP WO CONTRASTon 07-04-2020 MRI LUMBAR SP WO CONTRAST STUDY: MRI LUMBAR SP WO CONTRAST; 07/04/2020 10:30 am INDICATION: BACK PAIN. COMPARISON: None. ACCESSION NUMBER(S): [id number] ORDERING CLINICIAN: Anil Singer TECHNIQUE: Sagittal T1, [...] Multifocal degenerative changes as described above Normal [facility] [facility] SP COMP W FLEX/EXT 6 VW Son 06-20-2020 LUMB SP COMP W FLEX/EXT 6 VWS STUDY: LUMB SP COMP W FLEX/EXT 6 VWS ; 06/20/2020 11:35 am INDICATION: PAIN. COMPARISON: None. ACCESSION NUMBER(S): [id number] ORDERING CLINICIAN: Anil Singer FINDINGS: Mild dextroscoliosis centered at L3-4. No acute fracture or subluxation of the lumbar spine. Moderate multilevel degenerative disc height loss most pronounced at L3-4. Scattered endplate osteophytes. Lower lumbar predominant facet arthropathy. No spondylolisthesis. No pars defects identified. No instability on flexion or extension. IMPRESSION: Degenerative changes and scoliosis of the lumbar spine without instability. Normal [facility] SACRUM/COCCYXon 06-20-2020 SACRUM/COCCYX STUDY: SACRUM/COCCYX; 06/20/2020 10:10 am INDICATION: PAIN. COMPARISON: None. ACCESSION NUMBER(S): [id number] ORDERING CLINICIAN: Anil Singer FINDINGS: Degenerative changes of the sacroiliac joints. No definite erosions. No definite acute fracture identified. IMPRESSION: Degenerative changes of the sacroiliac joints. Normal [facility] IR ANGIOGRAM CAROTID CEREBRA L BILATERALon [...] 70 minutes. Neurointerventionalist : Jose Michael MD [place]: MD Nicolasa Beard MD Comparison: None Fluoroscopy [...] a single-wall needle technique, and a 5 Tuvaluan intravascular sheath was placed within the right common femoral artery, establishing arterial access. A 5 Tu[place]uan multipurpose catheter was then advanced over a [...] focal segmental narrowing. There is a right DIRECTOR INDUSTRIAL NURSING noted. Otherwise no other evidence of cerebral [...] and distal branches. There is a left DIRECTOR INDUSTRIAL NURSING noted. Inspection of the remaining left internal [...] and venous phase images were unremarkable. 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 2. 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 Vasculitis cannot be ruled out. 3. 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 Dr. Gayathri Maradiaga dictated this invasive procedure. [...] Jose Michael MD 06/14/19 Final result Normal [facility] CTA HEAD W CONTRASTon 2019 CTA HEAD [...] Dawna Meade MD 06/10/19 Final result Normal [facility] No intracranial flow-limiting stenosis or aneurysm. [facility], [place] EXAMINATION: CTA OF THE HEAD WITH CONTRAST [...] fluid collection. The varner-white differentiation is maintained. [facility] [place] Ju[place], pn Incoming Radiant Results From [employer] - 06/10/2019 4:49 PM EDT EXAMINATION: CTA [...] IMPRESSION: No intracranial flow-limiting stenosis or aneurysm. [facility] RAGHAVENDRA XR CHEST (2 VW)on 06-10-2019 XR CHEST [...] Uzair Jon MD 06/10/19 Final result Normal [facility] XR CHEST STANDARD (2 VW)on 0 06-10-2019 Focal subsegmental atelectasis or focal pneumonia mid to lateral lower left lung. Chest radiograph series appears otherwise unremarkable. [place], [place] EXAMINATION: TWO XRA Y VIEWS OF THE CHEST 06/10/2019 11:09 am COMPARISON: Chest 05/24/2019 HISTORY: ORDERING SYSTEM PROVIDED HISTORY: Vasculitis ([facility]) TECHNOLOGIST PROVIDED HISTORY: Reason for Exam: vasculitis Acuity: Acute Type of Exam: Initial FINDINGS: The cardiomediastinal and hilar silhouettes appear unremarkable. Focal density partially obscures mid to lateral aspect of the left hemidiaphragm on frontal view. The right lung appears clear. No pleural effusion evident. No pneumothorax is seen. No acute osseous abnormality is identified. [place], [place], Mhpn Incoming Radiant Results From [employer] - 06/10/2019 11:47 AM EDT EXAMINATION: TWO XRAY VIEWS OF THE CHEST 06/10/2019 11:09 am COMPARISON: Chest 05/24/2019 HISTORY: ORDERING SYSTEM PROVIDED HISTORY: Vasculitis ([facility]) TECHNOLOGIST PROVIDED HISTORY: Reason for Exam: vasculitis [...] lung. Chest radiograph series appears otherwise unremarkable. [place], [place] Cryoglobulinson 05-30-2019 Cryoglobulins 0 mg/dL Normal 0-10 [facility] Comment on above: Performed By: #### C DP, BMP, LIPR, MG, GLYHGB #### [address] [address] Deboner: Zaki Humphries MD Basic Metabolic Profon 05-26 (cont.) Normal [facility] Comment on above: Result Comment: Aver age GFR for 50-59 years old: 93 mL/min/1.73sq m Chronic Kidney Disease: <60 mL/min/1.73sq m Kidney failure: <15 mL/min/1.73sq m eGFR calculated using average adult body mass. Additional eGFR calculator available at: http://www.[employer]/PageFreezer_crcl_2011.htm Performed By: #### C DP, BMP, LIPR, MG, GLYHGB #### [address] [address] Deboner: Zaki Humphries MD Anion gap [Moles/Vol] 12 mmol/L Normal 9-17 [facility] Comment on above: Performed By: #### C DP, BMP, LIPR, MG, GLYHGB #### [address] [address] Deboner: Zaki Humphries MD Calcium [Mass/Vol] 9.0 mg/dL Normal 8.6-10.4 [facility] Comment on above: Performed By: #### C DP, BMP, LIPR, MG, GLYHGB #### [facility] [employer] [address] [place] [address] Deboner: Zaki Humphries MD Chloride [Moles/Vol] 102 mmol/L Normal 98-107 [facility] Comment on above: Performed By: #### C DP, BMP, LIPR, MG, GLYHGB #### [facility] [employer] [address] [place] [address] Deboner: Zaki Humphries MD CO2 [Moles/Vol] 23 mmol/L Normal 20-31 [facility] Comment on above: Performed By: #### C DP, BMP, LIPR, MG, GLYHGB #### [address] [address] Deboner: Zaki Humphries MD Creatinine [Mass/Vol] 0.59 mg/dL Normal 0.50-0.90 [facility] Comment on above: Performed By: #### C DP, BMP, LIPR, MG, GLYHGB #### [address] [address] Deboner: Zaki Humphries MD GFR, Amer >60 Normal >60 [facility] Comment on above: Performed By: #### C DP, BMP, LIPR, MG, GLYHGB #### [address] [address] Deboner: Zaki Humphries MD GFR,non Amer >60 Normal >60 [facility] Comment on above: Performed By: #### C DP, BMP, LIPR, MG, GLYHGB #### [address] [address] Deboner: Zaki Humphries MD Glucose [Mass/Vol] 217 mg/dL High 70-99 [facility] Comment on above: Performed By: #### C DP, BMP, LIPR, MG, GLYHGB #### [address] [address] Deboner: Zaki Humphries MD Potassium [Moles/Vol] 3.9 mmol/L Normal 3.7-5.3 [facility] Comment on above: Performed By: #### C DP, BMP, LIPR, MG, GLYHGB #### [address] [address] Deboner: Zaki Humphries MD Sodium [Moles/Vol] 137 mmol/L Normal 135-144 [facility] Comment on above: Performed By: #### C DP, BMP, LIPR, MG, GLYHGB #### [facility] [address] [place] [address] Deboner: Zaki Humphries MD Urea nitrogen [Mass/Vol] 20 mg/dL Normal -20 [facility] Comment on above: Performed By: #### C DP, BMP, LIPR, MG, GLYHGB #### [facility] [address] [place], [place] [id number] Deboner: Zaki Humphries MD BUN/CRE Ratio NOT REPORTED Normal - [facility] Comment on above: Performed By: #### C DP, BMP, LIPR, MG, GLYHGB #### [facility] [place], [place] [id number] Deboner: Zaki Humphries MD Staging: NOT REPORTED Normal [facility] Comment on above: Performed By: #### C DP, BMP, LIPR, MG, GLYHGB #### [facility] [address] [place], [place] [phone] Deboner: Zaki Humphries MD Basic metabolic panel 05-14 Anion gap [Moles/Vol] 12 mmol/L 9 - 17 mmol/L [place] Bun/Cre Ratio NOT REPORTED [place] Calcium [Mass/Vol] 9.0 mg/dL 8.6 - 10. 4 mg/dL [place] Chloride [Moles/Vol] 102 mmol/L 98 - 10 7 mmol/L [place] CO2 [Moles/Vol] 23 mmol/L 20 - 31 mmol/L [place] Creatinine [Mass/Vol] 0.59 mg/dL 0.5 - 0.9 mg/dL [place] GFR >60 >60 mL/min [place] GFR Non- >60 >60 mL/min [place] GFR/1.73 sq M predicted among non-blacks MDRD (S/P/Bld) [Vol rate/Area] [place] Comment on above: Average GFR for 50-5 9 years old: 93 mL/min/1.73sq m Chronic Kidney Disease: <60 mL/min/1.73sq m Kidney failure: <15 mL/min/1.73sq m eGFR calculated using average adult body mass. Additional eGFR calculator available at: http://www.[employer]/multiple_crcl_2012.htm GFR/1.73 sq M predicted among non-blacks MDRD (S/P/Bld) [Vol rate/Area] NOT REPORTED [place] Glucose [Mass/Vol] 217 mg/dL High 70 - 99 mg/dL [place], [place] Potassium [Moles/Vol] 3.9 mmol/L 3.7 - 5.3 mmol/L [place] Sodium [Moles/Vol] 137 mmol/L 135 - 144 mmol/L [place] Urea nitrogen [Mass/Vol] 20 mg/dL 6 - 20 mg/dL [place] CBCon 05-27-2019 Erythrocyte distribution width (RBC) [Ratio] 13.4 % Normal 11.8-14.4 [facility] Comment on above: Performed By: #### C DP, BMP, LIPR, MG, GLYHGB #### [facility] [employer] [address] [place] [address] Deboner: Zaki Humphries MD Hematocrit (Bld) [Volume fraction] 40.2 % Normal 36.3-47.1 [facility] Comment on above: Performed By: #### C DP, BMP, LIPR, MG, GLYHGB #### [facility] [employer] [address] [place], [place] [id number] Deboner: Zaki Humphries MD Hemoglobin (Bld) [Mass/Vol] 13.3 g/dL Normal 11.9-15.1 [facility] Comment on above: Performed By: #### C DP, BMP, LIPR, MG, GLYHGB #### [address] [address] Deboner: Zaki Humphries MD MCH (RBC) [Entitic mass] 30.0 pg Normal 25.2-33.5 [facility] Comment on above: Performed By: #### C DP, BMP, LIPR, MG, GLYHGB #### [address] [address] Deboner: Zaki Humphries MD MCHC (RBC) [Mass/Vol] 33.1 g/dL Normal 28.4-34.8 [facility] Comment on above: Performed By: #### C DP, BMP, LIPR, MG, GLYHGB #### [address] [address] Deboner: Zaki Humphries MD MCV (RBC) [Entitic vol] 90.7 fL Normal 82.6-102.9 [facility] Comment on above: Performed By: #### C DP, BMP, LIPR, MG, GLYHGB #### [address] [address] Deboner: Zaki Humphries MD NRBC Automated 0.0 per 100 WBC Normal 0.0 [facility] Comment on above: Performed By: #### C DP, BMP, LIPR, MG, GLYHGB #### [address] [address] Deboner: Zaki Humphries MD Platelet mean volume (Bld) [Entitic vol] 10.5 fL Normal 8.1-13.5 [facility] Comment on above: Performed By: #### C DP, BMP, LIPR, MG, GLYHGB #### [address] [address] Deboner: Zaki Humphries MD Platelets (Bld) [#/Vol] 254 10*3/uL Normal 138-453 [facility] Comment on above: Performed By: #### C DP, BMP, LIPR, MG, GLYHGB #### [facility] [employer] [facility] [place], [place] [phone] Deboner: Zaki Humphries MD RBC (Bld) [#/Vol] 4.43 10*6/uL Normal 3.95-5.11 [facility] Comment on above: Performed By: #### C DP, BMP, LIPR, MG, GLYHGB #### [facility] [employer] [facility] [place], [place] [phone] Deboner: Zaki Humphries MD WBC (Bld) [#/Vol] 14.2 10*3/uL High 3.5-11.3 [facility] Comment on above: Performed By: #### C DP, BMP, LIPR, MG, GLYHGB #### [facility] [employer] [address] [place] [id number] Deboner: Zaki Humphries MD Erythrocyte distribution width (RBC) [Ratio] 13.4 % 11.8 - 14.4 % [place] Hematocrit (Bld) [Volume fraction] 40.2 % 36.3 - 47.1 % [place] Hemoglobin (Bld) [Mass/Vol] 13.3 g/dL 11.9 - 15.1 g/dL [place] Interpretation and review of laboratory results Abnormal [place] MCH (RBC) [Entitic mass] 30.0 pg 25.2 - 33.5 pg [place] MCHC (RBC) [Mass/Vol] 33.1 g/dL 28.4 - 34.8 g/dL [place] MCV (RBC) [Entitic vol] 90.7 fL 82.6 - 102.9 fL [place] Platelet mean volume (Bld) [Entitic vol] 10.5 fL 8.1 - 13.5 fL [place] Platelets (Bld) [#/Vol] 254 10*3/uL [place] RBC (Bld) [#/Vol] 4.43 10*6/uL 3.95 - 5.1 1 m/uL [place] WBC (Bld) [#/Vol] 0.0 10*3/uL 0.0 per 10 0 WBC [place] WBC (Bld) [#/Vol] 14.2 10*3/uL [place] CSF DIFFERENTIALon 0 Bands, CSF % [facility], [place] Baso, CSF % [facility], [place] Blasts, CSF % [place] Eosinophils, CSF % [facility] [place] Fluid Diff Comment [place] Lymphs, CSF 92 % [place] Comment on above: The reference range and other method performance specifications have not been established for this body fluid. The test result must be integrated into the clinical context for interpretation. Metamyelocyte, CSF % [place]/Macrophage, CSF % [facility], [place] Myelocyte, CSF % [facility] [place] Neutrophils, CSF 1 % [facility] [place] Comment on above: The reference range and other method performance specifications have not been established for this body fluid. The test result must be integrated into the clinical context for interpretation. Other Cells, Fluid MONOCYTES % [place] Comment on above: The reference range and other method performance specifications have not been established for this body fluid. The test result must be integrated into the clinical context for interpretation. CSF Differentialon 0 Other Cells MONOCYTES Normal [facility] Comment on above: Result Comment: The reference range and other method performance specifications have not been established for this body fluid. The test result must be integrated into the clinical context for interpretation. Performed By: #### C DP, BMP, LIPR, MG, GLYHGB #### [facility] [employer] [address] [place] [address] Deboner: Zaki Humphries MD HIV REFLEXon 05-27-2019 HIV Ag/Ab NONREACTIVE NONREACTIVE [place] Comment on above: No laboratory eviden ce of HIV infection. If acute HIV infection is suspected, consider testing for HIV-1 RNA. HIV Reflexon 05-27-2019 HIV Ag/Ab NONREACTIVE Normal NR [facility] Comment on above: Result Comment: No l aboratory evidence of HIV infection. If acute HIV infection is suspected, consider testing for HIV-1 RNA. Performed By: #### C DP, BMP, LIPR, MG, GLYHGB #### [facility] [employer] [address] [place], [place] [phone] Deboner: Zaki Humphries MD Magnesiumon 05-27-2019 Magnesium [Mass/Vol] 2.7 mg/dL High 1.6-2.6 [facility] Comment on above: Performed By: #### C DP, BMP, LIPR, MG, GLYHGB #### [facility] [employer] [address] [place], [place] [phone] Deboner: Zaki Humphries MD Magnesium [Mass/Vol] 2.7 mg/dL High 1.6 - 2 .6 mg/dL [place] Otheron 05-27-2019 Interpretation and review of laboratory results Abnormal [place] POC Glucose Fingerstickon Glucose [Mass/Vol] 230 mg/dL High 65 - 105 mg/dL [place] Interpretation and review of laboratory results Abnormal [place] Glucose [Mass/Vol] 225 mg/dL High 65 - 105 mg/dL [place] Interpretation and review of laboratory results Abnormal [place] Glucose [Mass/Vol] 216 mg/dL High 65 - 105 mg/dL [place] Interpretation and review of laboratory results Abnormal [place] PROTEIN S FUNCTIONALon 05-26 Interpretation and review of laboratory results Abnormal [place] Protein [Mass/Vol] g/dL High 59 - 130 % [place] Comment on above: Patients on oral [...] 020 Protein [Mass/Vol] 121 % Normal >80 [facility] Comment on above: Result Comment: Patients on [...] C DP, BMP, LIPR, MG, GLYHGB #### [employer] [address] [place] [address] Deboner: Zaki Humphries MD Protein C Functionalon 05-26 Protein [Mass/Vol] 121 % >80 [place] Comment on above: Patients on oral [...] Activityon 020 Protein [Mass/Vol] g/dL High 59-130 [facility] Comment on above: Result Comment: Patients on [...] C DP, BMP, LIPR, MG, GLYHGB #### [employer] [address] [place] [address] Deboner: Zaki Humphries MD ANTI-NEUTROPHILIC CYTOPLASMI C ANTIBODYon 05-26-2019 ANCA Myeloperoxidase 8 AU/mL <100 [facility], [place] Comment on above: Reference Ranges (MPO and PR3): <100 AU/mL Negative 100-120 AU/mL Equivocal >120 AU/mL Positive Protein [Mass/Vol] 10 AU/mL <100 [place] Comment on above: Reference Ranges (MPO and PR3): <100 AU/mL Negative 100-120 AU/mL Equivocal >120 AU/mL Positive ANTI-PHOSPHOLIPID [facility] 05-25 Anticardiolipin IgA 1.1 <12 AP[facility] [place] Comment on above: Reference Range: 12 - 15 Equivocal >15 Positive Anticardiolipin IgG 2.5 <20 GPU [place] Comment on above: Reference Range: 20.0 - 29.9 Low Positive 30.0 - 79.9 Moderate Positive >79.9 High Positive Cardiolipin Ab IgM 1.7 <20 MPU [place] Comment on above: Reference Range: 20.0 - 29.9 Low Positive 30.0 - 79.9 Moderate Positive >79.9 High Positive Anti-Phospholipid [facility] 05-25 Antiphospholipid IgA 1.1 APU Normal <12 [facility] Comment on above: Result Comment: Reference Range: 12 - 15 Equivocal >15 Positive Performed By: #### D AU #### [address] [id number] Deboner: Zaki Humphries MD Antiphospholipid IgG 2.5 GPU Normal <20 [facility] Comment on above: Result Comment: Reference Range: 20.0 - 29.9 Low Positive 30.0 - 79.9 Moderate Positive >79.9 High Positive Performed By: #### D AU #### [address] [address] Deboner: Zaki Humphries MD Antiphospholipid IgM 1.7 MPU Normal <20 [facility] Comment on above: Result Comment: Reference Range: 20.0 - 29.9 Low Positive 30.0 - 79.9 Moderate Positive >79.9 High Positive Performed By: #### D AU #### [address] [address] Deboner: Zaki Humphries MD Basic Metabolic Profon 05-25 (cont.) Normal [facility] Comment on above: Result Comment: Aver age GFR for 50-59 years old: 93 mL/min/1.73sq m Chronic Kidney Disease: <60 mL/min/1.73sq m Kidney failure: <15 mL/min/1.73sq m eGFR calculated using average adult body mass. Additional eGFR calculator available at: http://www.[employer]/multiple_crcl_2012.htm Performed By: #### C DP, BMP, LIPR, MG, GLYHGB #### [facility] [employer] [address] [place] [address] Deboner: Zaki Humphries MD Anion gap [Moles/Vol] 12 mmol/L Normal 9-17 [facility] Comment on above: Performed By: #### C DP, BMP, LIPR, MG, GLYHGB #### [address] [address] Deboner: Zaki Humphries MD Calcium [Mass/Vol] 9.2 mg/dL Normal 8.6-10.4 [facility] Comment on above: Performed By: #### C DP, BMP, LIPR, MG, GLYHGB #### [address] [address] Deboner: Zaki Humphries MD Chloride [Moles/Vol] 103 mmol/L Normal 98-107 [facility] Comment on above: Performed By: #### C DP, BMP, LIPR, MG, GLYHGB #### [facility] [employer] [address] [place] [address] Deboner: Zaki Humphries MD CO2 [Moles/Vol] 21 mmol/L Normal 20-31 [facility] Comment on above: Performed By: #### C DP, BMP, LIPR, MG, GLYHGB #### [facility] [employer] [address] [place] [address] Deboner: Zaki Humphries MD Creatinine [Mass/Vol] 0.57 mg/dL Normal 0.50-0.90 [facility] Comment on above: Performed By: #### C DP, BMP, LIPR, MG, GLYHGB #### [address] [address] Deboner: Zaki Humphries MD GFR, Amer >60 Normal >60 [facility] Comment on above: Performed By: #### C DP, BMP, LIPR, MG, GLYHGB #### [address] [address] Deboner: Zaki Humphries MD GFR,non Amer >60 Normal >60 [facility] Comment on above: Performed By: #### C DP, BMP, LIPR, MG, GLYHGB #### [address] [address] Deboner: Zaki Humphries MD Glucose [Mass/Vol] 203 mg/dL High 70-99 [facility] Comment on above: Performed By: #### C DP, BMP, LIPR, MG, GLYHGB #### [address] [address] Deboner: Zaki Humphries MD Potassium [Moles/Vol] 3.9 mmol/L Normal 3.7-5.3 [facility] Comment on above: Performed By: #### C DP, BMP, LIPR, MG, GLYHGB #### [address] [address] Deboner: Zaki Humphries MD Sodium [Moles/Vol] 136 mmol/L Normal 135-144 [facility] Comment on above: Performed By: #### C DP, BMP, LIPR, MG, GLYHGB #### [address] [address] Deboner: Zaki Humphries MD Urea nitrogen [Mass/Vol] 17 mg/dL Normal 6-20 [facility] Comment on above: Performed By: #### C DP, BMP, LIPR, MG, GLYHGB #### [facility] [address] [place], [place] [id number] Deboner: Zaki Humphries MD BUN/CRE Ratio NOT REPORTED Normal 12-03 [facility] Comment on above: Performed By: #### C DP, BMP, LIPR, MG, GLYHGB #### [facility] [address] [place], [place] [phone] Deboner: Zaki Humphries MD Staging: NOT REPORTED Normal [facility] Comment on above: Performed By: #### C DP, BMP, LIPR, MG, GLYHGB #### [facility] [address] [place], [place] [phone] Deboner: Zaki Humphries MD Basic metabolic panelon 05-14 Anion gap [Moles/Vol] 12 mmol/L 9 - 17 mmol/L [place] Bun/Cre Ratio NOT REPORTED [place] Calcium [Mass/Vol] 9.2 mg/dL 8.6 - 10. 4 mg/dL [place] Chloride [Moles/Vol] 103 mmol/L 98 - 10 7 mmol/L [place] CO2 [Moles/Vol] 21 mmol/L 20 - 31 mmol/L [place] Creatinine [Mass/Vol] 0.57 mg/dL 0.5 - 0.9 mg/dL [place] GFR >60 >60 mL/min [place], [place] GFR Non- >60 >60 mL/min [place] GFR/1.73 sq M predicted among non-blacks MDRD (S/P/Bld) [Vol rate/Area] NOT REPORTED [place] GFR/1.73 sq M predicted among non-blacks MDRD (S/P/Bld) [Vol rate/Area] [place] Comment on above: Average GFR for 50-5 9 years old: 93 mL/min/1.73sq m Chronic Kidney Disease: <60 mL/min/1.73sq m Kidney failure: <15 mL/min/1.73sq m eGFR calculated using average adult body mass. Additional eGFR calculator available at: http://www.[employer]/multiple_crcl_2012.htm Glucose [Mass/Vol] 203 mg/dL High 70 - 99 mg/dL [place], [place] Interpretation and review of laboratory results Abnormal [place] Potassium [Moles/Vol] 3.9 mmol/L 3.7 - 5.3 mmol/L [place] Sodium [Moles/Vol] 136 mmol/L 135 - 144 mmol/L [place] Urea nitrogen [Mass/Vol] 17 mg/dL 6 - 20 mg/dL [place] CBCon 05-26-2019 Erythrocyte distribution width (RBC) [Ratio] 13.7 % Normal 11.8-14.4 [facility] Comment on above: Performed By: #### C DP, BMP, LIPR, MG, GLYHGB #### [address] [id number] Deboner: Zaki Humphries MD Hematocrit (Bld) [Volume fraction] 39.0 % Normal 36.3-47.1 [facility] Comment on above: Performed By: #### C DP, BMP, LIPR, MG, GLYHGB #### [facility] [employer] [address] [place] [phone] Deboner: Zaki Humphries MD Hemoglobin (Bld) [Mass/Vol] 13.0 g/dL Normal 11.9-15.1 [facility] Comment on above: Performed By: #### C DP, BMP, LIPR, MG, GLYHGB #### [facility] [employer] [address] [place] [address] Deboner: Zaki Humphries MD MCH (RBC) [Entitic mass] 30.5 pg Normal 25.2-33.5 [facility] Comment on above: Performed By: #### C DP, BMP, LIPR, MG, GLYHGB #### [address] [address] Deboner: Zaki Humphries MD MCHC (RBC) [Mass/Vol] 33.3 g/dL Normal 28.4-34.8 [facility] Comment on above: Performed By: #### C DP, BMP, LIPR, MG, GLYHGB #### [address] [address] Deboner: Zaki Humphries MD MCV (RBC) [Entitic vol] 91.5 fL Normal 82.6-102.9 [facility] Comment on above: Performed By: #### C DP, BMP, LIPR, MG, GLYHGB #### [address] [address] Deboner: Zaki Humphries MD NRBC Automated 0.0 per 100 WBC Normal 0.0 [facility] Comment on above: Performed By: #### C DP, BMP, LIPR, MG, GLYHGB #### [address] [address] Deboner: Zaki Humphries MD Platelet mean volume (Bld) [Entitic vol] 9.9 fL Normal 8.1-13.5 [facility] Comment on above: Performed By: #### C DP, BMP, LIPR, MG, GLYHGB #### [address] [address] Deboner: Zaki Humphries MD Platelets (Bld) [#/Vol] 234 10*3/uL Normal 138-453 [facility] Comment on above: Performed By: #### C DP, BMP, LIPR, MG, GLYHGB #### [address] [address] Deboner: Zaki Humphries MD RBC (Bld) [#/Vol] 4.26 10*6/uL Normal 3.95-5.11 [facility] Comment on above: Performed By: #### C DP, BMP, LIPR, MG, GLYHGB #### [facility] [employer] [address] [place], [place] [id number] Deboner: Zaki Humphries MD WBC (Bld) [#/Vol] 18.3 10*3/uL High 3.5-11.3 [facility] Comment on above: Performed By: #### C DP, BMP, LIPR, MG, GLYHGB #### [facility] [employer] [address] [place], [place] [id number] Deboner: Zaki Humphries MD Erythrocyte distribution width (RBC) [Ratio] 13.7 % 11.8 - 14.4 % [place], [place] Hematocrit (Bld) [Volume fraction] 39.0 % 36.3 - 47.1 % [place] Hemoglobin (Bld) [Mass/Vol] 13.0 g/dL 11.9 - 15.1 g/dL [place] Interpretation and review of laboratory results Abnormal [place] MCH (RBC) [Entitic mass] 30.5 pg 25.2 - 33.5 pg [place] MCHC (RBC) [Mass/Vol] 33.3 g/dL 28.4 - 34.8 g/dL [place] MCV (RBC) [Entitic vol] 91.5 fL 82.6 - 102.9 fL [place] Platelet mean volume (Bld) [Entitic vol] 9.9 fL 8.1 - 13.5 fL [place] Platelets (Bld) [#/Vol] 234 10*3/uL [place] RBC (Bld) [#/Vol] 4.26 10*6/uL 3.95 - 5.1 1 m/uL [place] WBC (Bld) [#/Vol] 18.3 10*3/uL High [place] WBC (Bld) [#/Vol] 0.0 10*3/uL 0.0 per 10 0 WBC [place] GLOMERULAR BASEMENT MEMBRANE (GBM) ANTIBODY IGGon 05-26-2019 GBM Ab, IgG 9 AU/mL <100 [place] Comment on above: GBM Reference Range: [...] 05-26-2019 Magnesium [Mass/Vol] 2.6 mg/dL Normal 1.6-2.6 [facility] Comment on above: Performed By: #### C DP, BMP, LIPR, MG, GLYHGB #### [address] [id number] Deboner: Zaki Humphries MD Magnesium [Mass/Vol] 2.6 mg/dL 1.6 - 2 .6 mg/dL [place] Neutrophil Cytopl Abon 05-25 MPO-ANCA 8 AU/mL Normal <100 [facility] Comment on above: Result Comment: Reference Ranges (MPO and PR3): <100 AU/mL Negative 100-120 AU/mL Equivocal >120 AU/mL Positive Performed By: #### D AU #### [address] [id number] Deboner: Zaki Humphries MD PR3-ANCA 10 AU/mL Normal <100 [facility] Comment on above: Result Comment: Reference Ranges (MPO and PR3): <100 AU/mL Negative 100-120 AU/mL Equivocal >120 AU/mL Positive Performed By: #### D AU #### [address] [id number] Deboner: Zaki Humphries MD POC Glucose Fingerstickon Glucose [Mass/Vol] 278 mg/dL High 65 - 105 mg/dL [place] Interpretation and review of laboratory results Abnormal [place] Glucose [Mass/Vol] 227 mg/dL High 65 - 105 mg/dL [place] Interpretation and review of laboratory results Abnormal [place] Glucose [Mass/Vol] 179 mg/dL High 65 - 105 mg/dL [place] Interpretation and review of laboratory results Abnormal [place] Glucose [Mass/Vol] 186 mg/dL High 65 - 105 mg/dL [place] Interpretation and review of laboratory results Abnormal [place] AROLDO SCREEN WITH REFLEXon Nuclear Ab IF (S) [Titer] Negative NEGATIVE [place] Comment on above: This test was run on the [employer] AROLDO test system. The system provides ten test results (HEp-2NA, dsDNA, SSA, SSB, Sm, DIRECT MARKETING MANAGER, Scl-70, Sabine-1, Centromere and Histone analytes) from a single patient sample. A negative AROLDO screen indicates that the specimen was negative for all ten markers. AROLDO Screenon 05-25-2019 AROLDO Screen Negative Normal NEG [facility] Comment on above: Result Comment: This test was run on the [employer] AROLDO test system. The system provides ten test results (HEp-2NA, dsDNA, SSA, SSB, Sm, DIRECT MARKETING MANAGER, Scl-70, Sabine-1, Centromere and Histone analytes) from a single patient sample. A negative AROLDO screen indicates that the specimen was negative for all ten markers. Performed By: #### D AU #### [employer] [address] [place] [address] Deboner: Zaki Humphries MD Basic Metabolic Profon 05-24 (cont.) Normal [facility] Comment on above: Result Comment: Aver age GFR for 50-59 years old: 93 mL/min/1.73sq m Chronic Kidney Disease: <60 mL/min/1.73sq m Kidney failure: <15 mL/min/1.73sq m eGFR calculated using average adult body mass. Additional eGFR calculator available at: http://www.zealot network.Beyond [employer] Box/multiple_crcl_2011.htm Performed By: #### C DP, BMP, LIPR, MG, GLYHGB #### [address] [address] Deboner: Zaki Humphries MD Anion gap [Moles/Vol] 12 mmol/L Normal 9-17 [facility] Comment on above: Performed By: #### C DP, BMP, LIPR, MG, GLYHGB #### [address] [address] Deboner: Zaki Humphries MD Calcium [Mass/Vol] 8.9 mg/dL Normal 8.6-10.4 [facility] Comment on above: Performed By: #### C DP, BMP, LIPR, MG, GLYHGB #### [address] [address] Deboner: Zaki Humphries MD Chloride [Moles/Vol] 109 mmol/L High 98-107 [facility] Comment on above: Performed By: #### C DP, BMP, LIPR, MG, GLYHGB #### [address] [address] Deboner: Zaki Humphries MD CO2 [Moles/Vol] 17 mmol/L Low 20-31 [facility] Comment on above: Performed By: #### C DP, BMP, LIPR, MG, GLYHGB #### [address] [address] Deboner: Zaki Humphries MD Creatinine [Mass/Vol] 0.54 mg/dL Normal 0.50-0.90 [facility] Comment on above: Performed By: #### C DP, BMP, LIPR, MG, GLYHGB #### [facility] [employer] [address] [place] [address] Deboner: Zaki Humphries MD GFR, Amer >60 Normal >60 [facility] Comment on above: Performed By: #### C DP, BMP, LIPR, MG, GLYHGB #### [address] [address] Deboner: Zaki Humphries MD GFR,non Amer >60 Normal >60 [facility] Comment on above: Performed By: #### C DP, BMP, LIPR, MG, GLYHGB #### [address] [address] Deboner: Zaki Humphries MD Glucose [Mass/Vol] 183 mg/dL High 70-99 [facility] Comment on above: Performed By: #### C DP, BMP, LIPR, MG, GLYHGB #### [address] [address] Deboner: Zaki Humphries MD Potassium [Moles/Vol] 4.3 mmol/L Normal 3.7-5.3 [facility] Comment on above: Result Comment: SPEC IMEN SLIGHTLY HEMOLYZED, RESULTS MAY BE ADVERSELY AFFECTED. Performed By: #### C DP, BMP, LIPR, MG, GLYHGB #### [address] [address] Deboner: Zaki Humphries MD Sodium [Moles/Vol] 138 mmol/L Normal 135-144 [facility] Comment on above: Performed By: #### C DP, BMP, LIPR, MG, GLYHGB #### [facility] [employer] [address] [place] [address] Deboner: Zaki Humphries MD Urea nitrogen [Mass/Vol] 17 mg/dL Normal 6-20 [facility] Comment on above: Performed By: #### C DP, BMP, LIPR, MG, GLYHGB #### [facility] [employer] [address] [place] [address] Deboner: Zaki Humphries MD BUN/CRE Ratio NOT REPORTED Normal 9- [facility] Comment on above: Performed By: #### C DP, BMP, LIPR, MG, GLYHGB #### [facility] [employer] [address] [place], [place] [id number] Deboner: Zaki Humphries MD Staging: NOT REPORTED Normal [facility] Comment on above: Performed By: #### C DP, BMP, LIPR, MG, GLYHGB #### [facility] [address] [place], [place] [id number] Deboner: Zaki Humphries MD Basic metabolic panelon 05-14 Anion gap [Moles/Vol] 12 mmol/L 9 - 17 mmol/L [place] Bun/Cre Ratio NOT REPORTED [place], [place] Calcium [Mass/Vol] 8.9 mg/dL 8.6 - 10. 4 mg/dL [place] Chloride [Moles/Vol] 109 mmol/L High 98 - 10 7 mmol/L [place] CO2 [Moles/Vol] 17 mmol/L Low 20 - 31 mmol/L [place] Creatinine [Mass/Vol] 0.54 mg/dL 0.5 - 0.9 mg/dL [place] GFR >60 >60 mL/min [place], [place] GFR Non- >60 >60 mL/min [place] GFR/1.73 sq M predicted among non-blacks MDRD (S/P/Bld) [Vol rate/Area] [place] Comment on above: Average GFR for 50-5 9 years old: 93 mL/min/1.73sq m Chronic Kidney Disease: <60 mL/min/1.73sq m Kidney failure: <15 mL/min/1.73sq m eGFR calculated using average adult body mass. Additional eGFR calculator available at: http://www.zealot network.Beyond [employer] Box/multiple_crcl_2012.htm GFR/1.73 sq M predicted among non-blacks MDRD (S/P/Bld) [Vol rate/Area] NOT REPORTED [place] Glucose [Mass/Vol] 183 mg/dL High 70 - 99 mg/dL [place], [place] Interpretation and review of laboratory results Abnormal [place] Potassium [Moles/Vol] 4.3 mmol/L 3.7 - 5.3 mmol/L [place] Comment on above: SPECIMEN SLIGHTLY HE MOLYZED, RESULTS MAY BE ADVERSELY AFFECTED. Sodium [Moles/Vol] 138 mmol/L 135 - 144 mmol/L [place] Urea nitrogen [Mass/Vol] 17 mg/dL 6 - 20 mg/dL [place] CBCon 05-25-2019 Erythrocyte distribution width (RBC) [Ratio] 13.2 % Normal 11.8-14.4 [facility] Comment on above: Performed By: #### C DP, BMP, LIPR, MG, GLYHGB #### [address] [address] Deboner: Zaki Humphries MD Hematocrit (Bld) [Volume fraction] 42.5 % Normal 36.3-47.1 [facility] Comment on above: Performed By: #### C DP, BMP, LIPR, MG, GLYHGB #### [facility] [employer] [address] [place] [address] Deboner: Zaki Humphries MD Hemoglobin (Bld) [Mass/Vol] 13.7 g/dL Normal 11.9-15.1 [facility] Comment on above: Performed By: #### C DP, BMP, LIPR, MG, GLYHGB #### [facility] [employer] [address] [place] [address] Deboner: Zaki Humphries MD MCH (RBC) [Entitic mass] 29.8 pg Normal 25.2-33.5 [facility] Comment on above: Performed By: #### C DP, BMP, LIPR, MG, GLYHGB #### [facility] [employer] [address] [place] [address] Deboner: Zaki Humphries MD MCHC (RBC) [Mass/Vol] 32.2 g/dL Normal 28.4-34.8 [facility] Comment on above: Performed By: #### C DP, BMP, LIPR, MG, GLYHGB #### [address] [address] Deboner: Zaki Humphries MD MCV (RBC) [Entitic vol] 92.4 fL Normal 82.6-102.9 [facility] Comment on above: Performed By: #### C DP, BMP, LIPR, MG, GLYHGB #### [place] [address] Deboner: Zaki Humphries MD NRBC Automated 0.0 per 100 WBC Normal 0.0 [facility] Comment on above: Performed By: #### C DP, BMP, LIPR, MG, GLYHGB #### [place] [address] Deboner: Zaki Humphries MD Platelet mean volume (Bld) [Entitic vol] 10.1 fL Normal 8.1-13.5 [facility] Comment on above: Performed By: #### C DP, BMP, LIPR, MG, GLYHGB #### [address] [address] Deboner: Zaki Humphries MD Platelets (Bld) [#/Vol] 288 10*3/uL Normal 138-453 [facility] Comment on above: Performed By: #### C DP, BMP, LIPR, MG, GLYHGB #### [address] [address] Deboner: Zaki Humphries MD RBC (Bld) [#/Vol] 4.60 10*6/uL Normal 3.95-5.11 [facility] Comment on above: Performed By: #### C DP, BMP, LIPR, MG, GLYHGB #### [facility] [address] [place], [place] [id number] Deboner: Zaki Humphries MD WBC (Bld) [#/Vol] 14.5 10*3/uL High 3.5-11.3 [facility] Comment on above: Performed By: #### C DP, BMP, LIPR, MG, GLYHGB #### [facility] [employer] [address] [place], [place] [phone] Deboner: Zaki Humphries MD Erythrocyte distribution width (RBC) [Ratio] 13.2 % 11.8 - 14.4 % [place] Hematocrit (Bld) [Volume fraction] 42.5 % 36.3 - 47.1 % [place] Hemoglobin (Bld) [Mass/Vol] 13.7 g/dL 11.9 - 15.1 g/dL [place] Interpretation and review of laboratory results Abnormal [place] MCH (RBC) [Entitic mass] 29.8 pg 25.2 - 33.5 pg [place] MCHC (RBC) [Mass/Vol] 32.2 g/dL 28.4 - 34.8 g/dL [place] MCV (RBC) [Entitic vol] 92.4 fL 82.6 - 102.9 fL [place] Platelet mean volume (Bld) [Entitic vol] 10.1 fL 8.1 - 13.5 fL [place] Platelets (Bld) [#/Vol] 288 10*3/uL [place] RBC (Bld) [#/Vol] 4.60 10*6/uL 3.95 - 5.1 1 m/uL [place] WBC (Bld) [#/Vol] 0.0 10*3/uL 0.0 per 10 0 WBC [place] WBC (Bld) [#/Vol] 14.5 10*3/uL [place] CSF Cell Counton 05-25-2019 Appearance (U) SLIGHTLY BLOODY [facility] Comment on above: Performed By: #### C DP, BMP, LIPR, MG, GLYHGB #### [facility] [address] [place] [address] Deboner: Zaki Humphries MD RBC (Bld) [#/Vol] 29349 /mm3 High 0 [facility] Comment on above: Performed By: #### C DP, BMP, LIPR, MG, GLYHGB #### [facility] [address] [place] [address] Deboner: Zaki Humphries MD Tube Number 3 [facility] Comment on above: Performed By: #### C DP, BMP, LIPR, MG, GLYHGB #### [address] [address] Deboner: Zaki Humphries MD WBC (Bld) [#/Vol] 92 /mm3 High <5 [facility] Comment on above: Performed By: #### C DP, BMP, LIPR, MG, GLYHGB #### [address] [address] Deboner: Zaki Humphries MD Xanthochromia PRESENT [facility] Comment on above: Performed By: #### C DP, BMP, LIPR, MG, GLYHGB #### [address] [address] Deboner: Zaki Humphries MD Color (U) NOT REPORTED Normal [facility] Comment on above: Performed By: #### C DP, BMP, LIPR, MG, GLYHGB #### [facility] [employer] [address] [place] [address] Deboner: Zaki Humphries MD Volume 5 [facility] Comment on above: Performed By: #### C DP, BMP, LIPR, MG, GLYHGB #### [facility] [address] [phone] Deboner: Zaki Humphries MD CSF Cell Count with Travis clark 05-25-2019 Appearance, CSF SLIGHTLY BLOODY [facility], [place] Interpretation and review of laboratory results Abnormal [facility] [place], [place] RBC, CSF [address] /mm3 High 0 [facility] [place], [place] Supernatant Color, CSF NOT REPORTED [facility], [place] Tube Number, CSF 3 [facility]- [place] Volume, CSF 5 [facility] [place] WBC (Bld) [#/Vol] 92 /mm3 High <5 [facility] Xanthochromia PRESENT [facility]- [place], [place] CSF Differentialon 0 Lymphocytes/100 WBC (Bld) 92 % Normal [facility] Comment on above: Result Comment: The reference range and other method performance specifications have not been established for this body fluid. The test result must be integrated into the clinical context for interpretation. Performed By: #### C DP, BMP, LIPR, MG, GLYHGB #### [facility] [employer] [address] [place] [address] Deboner: Zaki Humphries MD Neutrophils/100 WBC (Bld) 1 % Normal [facility] Comment on above: Result Comment: The reference range and other method performance specifications have not been established for this body fluid. The test result must be integrated into the clinical context for interpretation. Performed By: #### C DP, BMP, LIPR, MG, GLYHGB #### [facility] [employer] [address] [place] [address] [phone] Deboner: Zaki Humphries MD Bands NOT REPORTED Normal [facility] Comment on above: Performed By: #### C DP, BMP, LIPR, MG, GLYHGB #### [facility] [employer] [address] [place] [address] [phone] Deboner: Zaki Humphries MD Basophils/100 WBC (Bld) NOT REPORTED Normal [facility] Comment on above: Performed By: #### C DP, BMP, LIPR, MG, GLYHGB #### [facility] [address] [place] [address] Deboner: Zaki Humphries MD Blast NOT REPORTED Normal [facility] Comment on above: Performed By: #### C DP, BMP, LIPR, MG, GLYHGB #### [facility] [address] [place] [address] Deboner: Zaki Humphries MD Comment NOT REPORTED Normal [facility] Comment on above: Performed By: #### C DP, BMP, LIPR, MG, GLYHGB #### [facility] [address] [place] [address] Deboner: Zaki Humphries MD Eosinophils (Bld) [#/Vol] NOT REPORTED Normal [facility] Comment on above: Performed By: #### C DP, BMP, LIPR, MG, GLYHGB #### [facility] [address] [place] [address] Deboner: Zaki Humphries MD Metamyelocytes/100 WBC (Bld) NOT REPORTED Normal [facility] Comment on above: Performed By: #### C DP, BMP, LIPR, MG, GLYHGB #### [facility] [address] [place] [address] Deboner: Zaki Humphries MD [place]/Macrophage NOT REPORTED Normal [facility] Comment on above: Performed By: #### C DP, BMP, LIPR, MG, GLYHGB #### [facility] [address] [place] [address] Deboner: Zaki Humphries MD Myelocyte NOT REPORTED Normal [facility] Comment on above: Performed By: #### C DP, BMP, LIPR, MG, GLYHGB #### [facility] [address] [place] [address] Deboner: Zaki Humphries MD Echo Completeon 05-25-2019 Juanc[employer], [place] Incoming Cardio Results From [employer] - 05/25/2019 6:26 PM EDT Transthoracic Echocardiography Report (TTE) Patient Name NATHANAEL Date of Study 05/25/2019 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 Procedure Date Date: 05/25/2019 Start: 04:30 PM Study Location: [facility] Technical Quality: Fair visualization History [...] Wall E' velocity:0.12 m/s Lateral Wall E/E':7.3 [place] Glucose, CSFon 05-25-2019 Glucose, CSF 97 mg/dL High 40 - 70 mg/dL [place], [place] Glucose,CSFon 05-25-2019 Glucose [Mass/Vol] 97 mg/dL High 40-70 [facility] Comment on above: Performed By: #### C DP, BMP, LIPR, MG, GLYHGB #### [facility] [employer] [address] [place] [id number] Deboner: Zaki Humphries MD Gram Stainon 05-25-2019 Microscopic observation Gram stain Nom (Unsp spec) Specimen Description .CSF Special Requests NOT REPORTED Direct Exam FEW MONONUCLEAR WHITE BLOOD CELLS SEEN NO BACTERIA SEEN Gram stain made from cytocentrifuged specimen. Organisms and cells will be concentrated. Report Status FINAL 05/25/2019 Normal [facility] Comment on above: Performed By: #### C DP, BMP, LIPR, MG, GLYHGB #### [facility] [employer] [address] [place] [id number] Deboner: Zaki Humphries MD Direct Exam Gram stain made from cytocentrifuged specimen. Organisms and cells will be concentrated. [place] Direct Exam NO BACTERIA SEEN [place] Direct Exam FEW MONONUCLEAR WHIT E BLOOD CELLS SEEN Abnormal [place] Interpretation and review of laboratory results Abnormal [place] Special Requests NOT REPORTED [place] Specimen Description .CSF [place] IR LUMBAR PUNCTURE FOR DIAGN OSISon 05-25-2019 IR LUMBAR PUNCTURE FOR DIAGNOSIS EXAMINATION: FLUOROSCOPIC GUIDED LUMBAR PUNCTURE 05/25/2019 12:01 pm HISTORY: ORDERING SYSTEM PROVIDED HISTORY: vasculitis TECHNOLOGIST PROVIDED HISTORY: vasculitis Subarachnoid hemorrhage, workup for subarachnoid hemorrhage FLUOROSCOPY DOSE AND TYPE OR TIME AND EXPOSURES: DAP 134 cGy cm squared PROCEDURE: LICENSED APPRAISER: Geraldine Husain MD Informed consent was obtained after the risks and benefits of the procedure were discussed with the patient and all questions were answered fully. [place] protocol was observed and a standard timeout [...] Geraldine Husain MD 05/25/19 Final result Normal [facility] Successful fluoroscopic-guided lumbar puncture. [place], [place] Juanc[employer]os, [employer] Incoming Radiant Results From [employer] - 05/25/2019 2:58 PM EDT EXAMINATION: FLUOROSCOPIC GUIDED LUMBAR PUNCTURE 05/25/2019 12:01 pm HISTORY: ORDERING SYSTEM PROVIDED HISTORY: vasculitis TECHNOLOGIST PROVIDED HISTORY: vasculitis Subarachnoid hemorrhage, workup for subarachnoid hemorrhage FLUOROSCOPY DOSE AND TYPE OR TIME AND EXPOSURES: DAP 134 cGy cm squared PROCEDURE: LICENSED APPRAISER: Geraldine Husain MD Informed consent was obtained after the risks and benefits of the procedure were discussed with the patient and all questions were answered fully. [place] protocol was observed and a standard timeout [...] procedure well. IMPRESSION: Successful fluoroscopic-guided lumbar puncture. [facility], [place] EXAMINATION: FLUOROSCOPIC GUIDED LUMBAR PUNCTURE 05/25/2019 12:01 pm HISTORY: ORDERING SYSTEM PROVIDED HISTORY: vasculitis TECHNOLOGIST PROVIDED HISTORY: vasculitis Subarachnoid hemorrhage, workup for subarachnoid hemorrhage FLUOROSCOPY DOSE AND TYPE OR TIME AND EXPOSURES: DAP 134 cGy cm squared PROCEDURE: LICENSED APPRAISER: Geraldine Husain MD Informed consent was obtained after the risks and benefits of the procedure were discussed with the patient and all questions were answered fully. [place] protocol was observed and a standard timeout [...] and the patient tolerated the procedure well. [place] Magnesiumon 05-25-2019 Magnesium [Mass/Vol] 2.4 mg/dL Normal 1.6-2.6 [facility] Comment on above: Performed By: #### C DP, BMP, LIPR, MG, GLYHGB #### [facility] [employer] [address] [place] [id number] Deboner: Zaki Humphries MD Magnesium [Mass/Vol] 2.4 mg/dL 1.6 - 2 .6 mg/dL [place] Otheron 05-25-2019 Interpretation and review of laboratory results Abnormal [place] POC Glucose Fingerstickon Glucose [Mass/Vol] 218 mg/dL High 65 - 105 mg/dL [place] Interpretation and review of laboratory results Abnormal [place] Glucose [Mass/Vol] 242 mg/dL High 65 - 105 mg/dL [place] Interpretation and review of laboratory results Abnormal [place] Glucose [Mass/Vol] 165 mg/dL High 65 - 105 mg/dL [place] Interpretation and review of laboratory results Abnormal [place] Protein, CSFon 05-25-2019 Protein, CSF 69.2 mg/dL High 15 - 45 mg/dL [place], [place] Protein, Total, CSFon 2019 Total Protein - CSF 69.2 mg/dL High 15.0-45.0 [facility] Comment on above: Performed By: #### C DP, BMP, LIPR, MG, GLYHGB #### [facility] [address] [place] [address] Deboner: Zaki Humphries MD RA Screenon 05-25-2019 RA Screen 123.0 IU/mL High <14 [facility] Comment on above: Performed By: #### D AU #### [facility] [employer] [address] [place] [address] Deboner: Zaki Humphries MD RHEUMATOID FACTORon 05-25-19 20 Interpretation and review of laboratory results Abnormal [place], [place] Rheumatoid Factor 123 High <14 IU/mL [place], [place] Basic Metabolic Profon 05-23 (cont.) Normal [facility] Comment on above: Result Comment: Aver age GFR for 50-59 years old: 93 mL/min/1.73sq m Chronic Kidney Disease: <60 mL/min/1.73sq m Kidney failure: <15 mL/min/1.73sq m eGFR calculated using average adult body mass. Additional eGFR calculator available at: http://www.[employer]/multiple_crcl_2012.htm Performed By: #### C BC, BMP, MG ####[facility] [address] [place] [address] Lab Director: Zaki Humphries MD Anion gap [Moles/Vol] 12 mmol/L Normal 9-17 [facility] Comment on above: Performed By: #### C BC, BMP, MG ####[facility] [address] [place] [address] Lab Director: Zaki Humphries MD Calcium [Mass/Vol] 9.2 mg/dL Normal 8.6-10.4 [facility] Comment on above: Performed By: #### C BC, BMP, MG ####[facility] [address] [place] [address] Lab Director: Zaki Humphries MD Chloride [Moles/Vol] 104 mmol/L Normal 98-107 [facility] Comment on above: Performed By: #### C BC, BMP, MG ####[facility] [address] [place] [address] Lab Director: Zaki Humphries MD CO2 [Moles/Vol] 21 mmol/L Normal 20-31 [facility] Comment on above: Performed By: #### C BC, BMP, MG ####[facility] [address] [place], [place] [phone] Director: Zaki Humphries MD Creatinine [Mass/Vol] 0.65 mg/dL Normal 0.50-0.90 [facility] Comment on above: Performed By: #### C BC, BMP, MG ####[facility] [address] [place] [address] Lab Director: Zaki Humphries MD GFR, Amer >60 Normal >60 [facility] Comment on above: Performed By: #### C BC, BMP, MG ####[facility] [address] [place], [place] [phone] Director: Zaki Humphries MD GFR,non Amer >60 Normal >60 [facility] Comment on above: Performed By: #### C BC, BMP, MG ####[facility] [address] [place], [place] [phone] Director: Zaki Humphries MD Glucose [Mass/Vol] 102 mg/dL High 70-99 [facility] Comment on above: Performed By: #### C BC, BMP, MG ####[facility] [address] [place], [place] [phone] Director: Zaki Humphries MD Potassium [Moles/Vol] 4.0 mmol/L Normal 3.7-5.3 [facility] Comment on above: Performed By: #### C BC, BMP, MG ####[facility] [address] [place] [address] Lab Director: Zaki Humphries MD Sodium [Moles/Vol] 137 mmol/L Normal 135-144 [facility] Comment on above: Performed By: #### C BC, BMP, MG ####[facility] [address] [place] [address] Lab Director: Zaki Humphries MD Urea nitrogen [Mass/Vol] 17 mg/dL Normal - [facility] Comment on above: Performed By: #### C BC, BMP, MG ####[facility] [address] [place] [address] lab Director: Zaki Humphries MD BUN/CRE Ratio NOT REPORTED Normal - [facility] Comment on above: Performed By: #### C BC, BMP, MG ####[facility] [address] [place] [address] Lab Director: Zaki Humphries MD Staging: NOT REPORTED Normal [facility] Comment on above: Performed By: #### C BC, BMP, MG ####[facility] [address] [place] [address] Lab Director: Zaki Humphries MD Basic metabolic panelon - Anion gap [Moles/Vol] 12 mmol/L 9 - 17 mmol/L [facility], [place] Bun/Cre Ratio NOT REPORTED [facility] [place], [place] Calcium [Mass/Vol] 9.2 mg/dL 8.6 - 10. 4 mg/dL [facility], [place] Chloride [Moles/Vol] 104 mmol/L 98 - 10 7 mmol/L [facility] CO2 [Moles/Vol] 21 mmol/L 20 - 31 mmol/L [facility], [place] Creatinine [Mass/Vol] 0.65 mg/dL 0.5 - 0.9 mg/dL [place], [place] GFR >60 >60 mL/min [place], [place] GFR Non- >60 >60 mL/min [place] GFR/1.73 sq M predicted among non-blacks MDRD (S/P/Bld) [Vol rate/Area] [place], [place] Comment on above: Average GFR for 50-5 9 years old: 93 mL/min/1.73sq m Chronic Kidney Disease: <60 mL/min/1.73sq m Kidney failure: <15 mL/min/1.73sq m eGFR calculated using average adult body mass. Additional eGFR calculator available at: http://www.[employer]/multiple_crcl_2012.htm GFR/1.73 sq M predicted among non-blacks MDRD (S/P/Bld) [Vol rate/Area] NOT REPORTED [place], [place] Glucose [Mass/Vol] 102 mg/dL High 70 - 99 mg/dL [place], [place] Interpretation and review of laboratory results Abnormal [place], [place] Potassium [Moles/Vol] 4.0 mmol/L 3.7 - 5.3 mmol/L [place], [place] Sodium [Moles/Vol] 137 mmol/L 135 - 144 mmol/L [place], [place] Urea nitrogen [Mass/Vol] 17 mg/dL 6 - 20 mg/dL [place] C-REACTIVE PROTEINon 020 CRP [Mass/Vol] 4.7 mg/L 0 - 5 mg/L [place], [place] C-Reactive Protein 020 CRP [Mass/Vol] 4.7 mg/L Normal 0.0-5.0 [facility] Comment on above: Performed By: #### D AU #### [facility] [employer] [facility] [place], [place] [phone] Deboner: Zaki Humphries MD C3on 05-24-2019 C3 140 mg/dL Normal 90-180 [facility] Comment on above: Performed By: #### C 3, C4, CRP, TSHX, PHEP, SED, RA, ANASCX, ANCACP, GBMG, APA, HIVX, CRYO ####[facility] [address] [place] [address] Lab Director: Zaki Humphries MD C3 COMPLEMENTon 05-24-2019 Complement C3 140 mg/dL 90 - 180 mg/dL [facility] [place] C4on 05-24-2019 C4 23 mg/dL Normal 10-40 [facility] Comment on above: Performed By: #### D AU #### [facility] [employer] [address] [place] [address] Deboner: Zaki Humphries MD C4 COMPLEMENTon 05-24-2019 Complement C4 23 mg/dL 10 - 40 mg/dL [facility] CBCon 05-24-2019 Erythrocyte distribution width (RBC) [Ratio] 13.1 % Normal 11.8-14.4 [facility] Comment on above: Performed By: #### C BC BMP, MG ####[facility] FinancialLpvkyibopfjs3[address] [place] [address] Lab Director: Zaki Humphries MD Hematocrit (Bld) [Volume fraction] 43.2 % Normal 36.3-47.1 [facility] Comment on above: Performed By: #### C BC BMP, MG ####[employer] [place] [address] Lab Director: Zaik Humphries MD Hemoglobin (Bld) [Mass/Vol] 14.0 g/dL Normal 11.9-15.1 [facility] Comment on above: Performed By: #### C BC, BMP, MG ####[employer] [address] [place] [address] Lab Director: Zaki Humphries MD MCH (RBC) [Entitic mass] 30.2 pg Normal 25.2-33.5 [facility] Comment on above: Performed By: #### C BC, BMP, MG ####[employer] [place], [place] [phone] Director: Zaki Humphries MD MCHC (RBC) [Mass/Vol] 32.4 g/dL Normal 28.4-34.8 [facility] Comment on above: Performed By: #### C BC, BMP, MG ####[facility] [address] [place], [place] [phone] Director: Zaki Humphries MD MCV (RBC) [Entitic vol] 93.3 fL Normal 82.6-102.9 [facility] Comment on above: Performed By: #### C BC, BMP, MG ####[facility] [address] [place], [place] [phone] Director: Zaki Humphries MD NRBC Automated 0.0 per 100 WBC Normal 0.0 [facility] Comment on above: Performed By: #### C BC, BMP, MG ####[facility] [address] [place] [address] [phone] Director: Zaki Humphries MD Platelet mean volume (Bld) [Entitic vol] 9.3 fL Normal 8.1-13.5 [facility] Comment on above: Performed By: #### C BC, BMP, MG ####[facility] [address] [place] [address] [phone] Director: Zaki Humphries MD Platelets (Bld) [#/Vol] 262 10*3/uL Normal 138-453 [facility] Comment on above: Performed By: #### C BC, BMP, MG ####[facility] [address] [place], [place] [phone] Director: Zaki Humphries MD RBC (Bld) [#/Vol] 4.63 10*6/uL Normal 3.95-5.11 [facility] Comment on above: Performed By: #### C BC, BMP, MG ####[facility] [address] [place] [address], [place] [address] Lab Director: Zaki Humphries MD WBC (Bld) [#/Vol] 11.0 10*3/uL Normal 3.5-11.3 [facility] Comment on above: Performed By: #### C BC, BMP, MG ####[facility] H[address]xurmgltqt2321 [place] [address] Lab Director: Zaki Humphries MD Erythrocyte distribution width (RBC) [Ratio] 13.1 % 11.8 - 14.4 % [place], [place] Hematocrit (Bld) [Volume fraction] 43.2 % 36.3 - 47.1 % [place] Hemoglobin (Bld) [Mass/Vol] 14.0 g/dL 11.9 - 15.1 g/dL [place] MCH (RBC) [Entitic mass] 30.2 pg 25.2 - 33.5 pg [place] MCHC (RBC) [Mass/Vol] 32.4 g/dL 28.4 - 34.8 g/dL [place] MCV (RBC) [Entitic vol] 93.3 fL 82.6 - 102.9 fL [place], [place] Platelet mean volume (Bld) [Entitic vol] 9.3 fL 8.1 - 13.5 fL [place], [place] Platelets (Bld) [#/Vol] 262 10*3/uL [place] RBC (Bld) [#/Vol] 4.63 10*6/uL 3.95 - 5.1 1 m/uL [place] WBC (Bld) [#/Vol] 0.0 10*3/uL 0.0 per 10 0 WBC [place] WBC (Bld) [#/Vol] 11.0 10*3/uL [place] DNA Testingon 05-24-2019 DNA Testing (NOTE) Specimen(s) Received: Peripheral blood, [facility] Clinical Information: TIA RESULTS: MOLECULAR GENETIC DIAGNOSIS: Negative for Factor V Leiden Mutation INTERPRETATION: The Factor V Leiden mutation (1691GA) [c.1601G>A([id number] )] was not detected in this study. This patient may, however, still be at risk for venous thrombosis due to another genetic predisposition including the Factor II (Prothrombin [id number]) mutation or either of the 5, 10-methylenetetrahydro folate reductase (MTHFR) mutations (677T and O3275F) Additional molecular testing is available for these [...] which predicts a single amino acid replacement ([id number]) at one of three activated protein C [...] the Invader Factor V test that utilizes [employer] and [employer] chemistry for detecting gene-specific sequences. Target amplification [...] Invader and Cleavase are registered trademarks of [employer]. This test is performed pursuant to an agreement with [employer] Electronically Signed Out Archie Robison M.D. [facility] PATH[facility] [address] [place] [phone] FACTOR V LEIDEN MUTATION ANALYSIS REPORT [facility] Jorge Wilde MD, Archie Robison MD [facility] Comment on above: Performed By: #### C DP, BMP, LIPR, MG, GLYHGB #### [facility] [employer] [address] [place] [address] [phone] Deboner: Zaki Humphries MD HEPATITIS PANEL, [facility] HAV IgM IA Qn (S) NONREACTIVE NONREACTIVE [place], [place] Hep B Core Ab, IgM NONREACTIVE NONREACTIVE [place], [place] Hepatitis B Surface Ag NONREACTIVE NONREACTIVE [place] Hepatitis C Ab NONREACTIVE NONREACTIVE [place], [place] Comment on above: The hepatitis C [...] ordering HCV RNA by PCR. Hepatitis Acute [facility] 05-23 Hep A Ab,IgM NONREACTIVE Normal NR [facility] Comment on above: Performed By: #### D AU #### [address] [phone] Deboner: Zaki Humphries MD Hep B Core Ab,IgM NONREACTIVE Normal NR [facility] Comment on above: Performed By: #### D AU #### [facility] [place] [address] Deboner: Zaki Humphries MD Hep B Surf Ag NONREACTIVE Normal NR [facility] Comment on above: Performed By: #### D AU #### [facility] [employer] [address] [place] [address] Deboner: Zaki Humphries MD Hep C Ab NONREACTIVE Normal NR [facility] Comment on above: Result Comment: The hepatitis [...] PCR. Performed By: #### D AU #### [facility] [employer] [address] [place] [address] Deboner: Zaki Humphries MD Magnesiumon 05-24-2019 Magnesium [Mass/Vol] 2.4 mg/dL Normal 1.6-2.6 [facility] Comment on above: Performed By: #### C BC, BMP, MG ####[facility] [address] [place] [address] Lab Director: Zaki Humphries MD Magnesium [Mass/Vol] 2.4 mg/dL 1.6 - 2 .6 mg/dL [place], [place] POC Glucose Fingerstickon Glucose [Mass/Vol] 190 mg/dL High 65 - 105 mg/dL [place], [place] Interpretation and review of laboratory results Abnormal [place], [place] Glucose [Mass/Vol] 170 mg/dL High 65 - 105 mg/dL [place] Interpretation and review of laboratory results Abnormal [place], [place] Glucose [Mass/Vol] 85 mg/dL 65 - 105 mg/dL [place] Sedimentation Rateon 020 Sedimentation Rate 10 mm Normal 0-20 [facility] Comment on above: Performed By: #### D AU #### [employer] [address] [place] [address] Deboner: Zaki Humphries MD Sed Rate 10 mm 0 - 20 mm [place] TSH w/reflex to FT4on 2019 TSH Qn 3.52 m[IU]/L Normal 0.30-5.00 [facility] Comment on above: Performed By: #### D AU #### [employer] [address] [place] [address] Deboner: Zaki Humphries MD TSH with Reflexon 05-24-2019 TSH Qn 3.52 m[IU]/L [place] XR CHEST PORTABLEon 05-24-19 20 XR [...] Suresh Sanderson MD 05/24/19 Final result Normal [facility] No acute cardiopulmonary process. [place] EXAMINATION: ONE XRA Y VIEW OF THE CHEST 05/24/2019 2:14 pm COMPARISON: Chest radiograph performed 05/22/2019. HISTORY: ORDERING SYSTEM PROVIDED HISTORY: coughx2 weeks TECHNOLOGIST PROVIDED HISTORY: coughx2 Reason for Exam: supine port Acuity: Unknown Type of Exam: Unknown FINDINGS: There is no acute consolidation or effusion. There is no pneumothorax. The mediastinal structures are unremarkable. The upper abdomen is unremarkable. The extrathoracic soft tissues are unremarkable. There is no acute osseous abnormality. [place], [place] Juancarlos, Mhpn Incoming Radiant Results From [employer] - 05/24/2019 2:28 PM EDT EXAMINATION: ONE [...] osseous abnormality. IMPRESSION: No acute cardiopulmonary process. [place] APTTon 05-23-2019 aPTT Coag (Bld) [Time] 24.3 s Normal 20.5-30.5 [facility] Comment on above: Performed By: #### P TT, PT ####[address] [place] [address] lab Director: Zaki Humphries MD aPTT Coag (Bld) [Time] 24.3 s [place], [place] BASIC METABOLIC PANELon Anion gap [Moles/Vol] 13 mmol/L 9 - 17 mmol/L [place], [place] Bun/Cre Ratio NOT REPORTED [place], [place] Calcium [Mass/Vol] 9.3 mg/dL 8.6 - 10. 4 mg/dL [place] Chloride [Moles/Vol] 98 mmol/L 98 - 10 7 mmol/L [place] CO2 [Moles/Vol] 23 mmol/L 20 - 31 mmol/L [place], [place] Creatinine [Mass/Vol] 0.63 mg/dL 0.5 - 0.9 mg/dL [place], [place] GFR >60 >60 mL/min [place], [place] GFR Non- >60 >60 mL/min [place], [place] GFR/1.73 sq M predicted among non-blacks MDRD (S/P/Bld) [Vol rate/Area] [place], [place] Comment on above: Average GFR for 50-5 9 years old: 93 mL/min/1.73sq m Chronic Kidney Disease: <60 mL/min/1.73sq m Kidney failure: <15 mL/min/1.73sq m eGFR calculated using average adult body mass. Additional eGFR calculator available at: http://www.[employer]/multiple_crcl_2012.htm GFR/1.73 sq M predicted among non-blacks MDRD (S/P/Bld) [Vol rate/Area] NOT REPORTED [place], [place] Glucose [Mass/Vol] 110 mg/dL High 70 - 99 mg/dL [place], [place] Potassium [Moles/Vol] 3.4 mmol/L Low 3.7 - 5.3 mmol/L [place], [place] Sodium [Moles/Vol] 134 mmol/L Low 135 - 144 mmol/L [place], [place] Urea nitrogen [Mass/Vol] 16 mg/dL 6 - 20 mg/dL [place] Basic Metabolic Profon 05-22 (cont.) Normal [facility] Comment on above: Result Comment: Aver age GFR for 50-59 years old: 93 mL/min/1.73sq m Chronic Kidney Disease: <60 mL/min/1.73sq m Kidney failure: <15 mL/min/1.73sq m eGFR calculated using average adult body mass. Additional eGFR calculator available at: http://www.[employer]/multiple_crcl_2012.htm Performed By: #### C LAURA BMP, MG #### [employer] [address] [place] [id number] Deboner: Zaki Humphries MD Anion gap [Moles/Vol] 13 mmol/L Normal 9-17 [facility] Comment on above: Performed By: #### C BC BMP, MG #### [facility] [address] [place] [address] Deboner: Zaki Humphries MD Calcium [Mass/Vol] 9.2 mg/dL Normal 8.6-10.4 [facility] Comment on above: Performed By: #### C BC, BMP, MG #### [employer] [address] [place] [address] [phone] Deboner: Zaki Humphries MD Chloride [Moles/Vol] 99 mmol/L Normal 98-107 [facility] Comment on above: Performed By: #### C BC, BMP, MG #### [facility] [employer] [address] [place] [address] Deboner: Zaki Humphries MD CO2 [Moles/Vol] 24 mmol/L Normal 20-31 [facility] Comment on above: Performed By: #### C BC, BMP, MG #### [facility] [employer] [address] [place] [address] Deboner: Zaki Humphries MD Creatinine [Mass/Vol] 0.72 mg/dL Normal 0.50-0.90 [facility] Comment on above: Performed By: #### C BC, BMP, MG #### [facility] [employer] [address] [place] [address] Deboner: Zaki Humphries MD GFR, Amer >60 Normal >60 [facility] Comment on above: Performed By: #### C BC, BMP, MG #### [address] [address] Deboner: Zaki Humphries MD GFR,non Amer >60 Normal >60 [facility] Comment on above: Performed By: #### C BC, BMP, MG #### [facility] [employer] [address] [place] [address] Deboner: Zaki Humphries MD Glucose [Mass/Vol] 99 mg/dL Normal 70-99 [facility] Comment on above: Performed By: #### C BC, BMP, MG #### [facility] [employer] [address] [place] [address] Deboner: Zaki Humphries MD Potassium [Moles/Vol] 3.9 mmol/L Normal 3.7-5.3 [facility] Comment on above: Performed By: #### C BC, BMP, MG #### [facility] [address] [place] [address] Deboner: Zaki Humphries MD Sodium [Moles/Vol] 136 mmol/L Normal 135-144 [facility] Comment on above: Performed By: #### C BC, BMP, MG #### [facility] [address] [place] [address] Deboner: Zaki Humphries MD Urea nitrogen [Mass/Vol] 15 mg/dL Normal 6-20 [facility] Comment on above: Performed By: #### C BC, BMP, MG #### [facility] [address] [place] [address] Deboner: Zaki Humphries MD BUN/CRE Ratio NOT REPORTED Normal -20 [facility] Comment on above: Performed By: #### C BC, BMP, MG #### [facility] [address] [place] [address] Deboner: Zaki Humphries MD Staging: NOT REPORTED Normal [facility] Comment on above: Performed By: #### C BC, BMP, MG #### [facility] [employer] [address] [place] [address] Deboner: Zaki Humphries MD (cont.) [facility] Comment on above: Result Comment: Aver age GFR for 50-59 years old: 93 mL/min/1.73sq m Chronic Kidney Disease: <60 mL/min/1.73sq m Kidney failure: <15 mL/min/1.73sq m eGFR calculated using average adult body mass. Additional eGFR calculator available at: http://www.[employer].com/multiple_crcl_2012.htm Performed By: #### C DP, BMP, LIPR, MG, GLYHGB #### [facility] [address] [place] [address] Deboner: Zaki Humphries MD Anion gap [Moles/Vol] 13 mmol/L Normal 9-17 [facility] Comment on above: Performed By: #### C DP, BMP, LIPR, MG, GLYHGB #### [address] [address] Deboner: Zaki Humphries MD Calcium [Mass/Vol] 9.3 mg/dL Normal 8.6-10.4 [facility] Comment on above: Performed By: #### C DP, BMP, LIPR, MG, GLYHGB #### [address] [address] Deboner: Zaki Humphries MD Chloride [Moles/Vol] 98 mmol/L Normal 98-107 [facility] Comment on above: Performed By: #### C DP, BMP, LIPR, MG, GLYHGB #### [address] [address] Deboner: Zaki Humphries MD CO2 [Moles/Vol] 23 mmol/L Normal 20-31 [facility] Comment on above: Performed By: #### C DP, BMP, LIPR, MG, GLYHGB #### [address] [address] Deboner: Zaki Humphries MD Creatinine [Mass/Vol] 0.63 mg/dL Normal 0.50-0.90 [facility] Comment on above: Performed By: #### C DP, BMP, LIPR, MG, GLYHGB #### [address] [address] Deboner: Zaki Humphries MD GFR, Amer >60 Normal >60 [facility] Comment on above: Performed By: #### C DP, BMP, LIPR, MG, GLYHGB #### [facility] [employer] [address] [place] [address] Deboner: Zaki Humphries MD GFR,non Amer >60 Normal >60 [facility] Comment on above: Performed By: #### C DP, BMP, LIPR, MG, GLYHGB #### [facility] [employer] [address] [place] [address] Deboner: Zaki Humphries MD Glucose [Mass/Vol] 110 mg/dL High 70-99 [facility] Comment on above: Performed By: #### C DP, BMP, LIPR, MG, GLYHGB #### [address] [address] Deboner: Zaki Humphries MD Potassium [Moles/Vol] 3.4 mmol/L Low 3.7-5.3 [facility] Comment on above: Performed By: #### C DP, BMP, LIPR, MG, GLYHGB #### [address] [address] Deboner: Zaki Humphries MD Sodium [Moles/Vol] 134 mmol/L Low 135-144 [facility] Comment on above: Performed By: #### C DP, BMP, LIPR, MG, GLYHGB #### [address] [address] Deboner: Zaki Humphries MD Urea nitrogen [Mass/Vol] 16 mg/dL Normal 6-20 [facility] Comment on above: Performed By: #### C DP, BMP, LIPR, MG, GLYHGB #### [address] [address] Deboner: Zaki Humphries MD BUN/CRE Ratio NOT REPORTED Normal 9-20 [facility] Comment on above: Performed By: #### C DP, BMP, LIPR, MG, GLYHGB #### [facility] [employer] [address] [place] [address] Deboner: Zaki Humphries MD Staging: NOT REPORTED Normal [facility] Comment on above: Performed By: #### C DP, BMP, LIPR, MG, GLYHGB #### [facility] [address] [address] [place] [address] Deboner: Zaki Humphries MD Basic metabolic panelon Anion gap [Moles/Vol] 13 mmol/L 9 - 17 mmol/L [place] Bun/Cre Ratio NOT REPORTED [place] Calcium [Mass/Vol] 9.2 mg/dL 8.6 - 10. 4 mg/dL [place] Chloride [Moles/Vol] 99 mmol/L 98 - 10 7 mmol/L [place] CO2 [Moles/Vol] 24 mmol/L 20 - 31 mmol/L [place] Creatinine [Mass/Vol] 0.72 mg/dL 0.5 - 0.9 mg/dL [place] GFR >60 >60 mL/min [place] GFR Non- >60 >60 mL/min [place] GFR/1.73 sq M predicted among non-blacks MDRD (S/P/Bld) [Vol rate/Area] [place] Comment on above: Average GFR for 50-5 9 years old: 93 mL/min/1.73sq m Chronic Kidney Disease: <60 mL/min/1.73sq m Kidney failure: <15 mL/min/1.73sq m eGFR calculated using average adult body mass. Additional eGFR calculator available at: http://www.[employer].Beyond the [email or web address] GFR/1.73 sq M predicted among non-blacks MDRD (S/P/Bld) [Vol rate/Area] NOT REPORTED [place], [place] Glucose [Mass/Vol] 99 mg/dL 70 - 99 mg/dL [place], [place] Potassium [Moles/Vol] 3.9 mmol/L 3.7 - 5.3 mmol/L [place] Sodium [Moles/Vol] 136 mmol/L 135 - 144 mmol/L [place] Urea nitrogen [Mass/Vol] 15 mg/dL 6 - 20 mg/dL [facility], [place] CBCon 05-23-2019 Erythrocyte distribution width (RBC) [Ratio] 13.2 % Normal 11.8-14.4 [facility] Comment on above: Performed By: #### C BC, BMP, MG #### [facility] [employer] [address] [place] [address] Deboner: Zaki Humphries MD Hematocrit (Bld) [Volume fraction] 47.1 % Normal 36.3-47.1 [facility] Comment on above: Performed By: #### C BC, BMP, MG #### [facility] [employer] [address] [place] [address] Deboner: Zaki Humphries MD Hemoglobin (Bld) [Mass/Vol] 15.0 g/dL Normal 11.9-15.1 [facility] Comment on above: Performed By: #### C BC, BMP, MG #### [facility] [employer] [address] [place] [address] Deboner: Zaki Humphries MD MCH (RBC) [Entitic mass] 29.6 pg Normal 25.2-33.5 [facility] Comment on above: Performed By: #### C BC, BMP, MG #### [facility] [employer] [address] [place] [address] Deboner: Zaki Humphries MD MCHC (RBC) [Mass/Vol] 31.8 g/dL Normal 28.4-34.8 [facility] Comment on above: Performed By: #### C BC, BMP, MG #### [facility] [employer] [address] [place] [address] 270[address] Deboner: Zaki Humphries MD MCV (RBC) [Entitic vol] 92.9 fL Normal 82.6-102.9 [facility] Comment on above: Performed By: #### C BC, BMP, MG #### [facility] [employer] [address] [place] [address] Deboner: Zaki Humphries MD NRBC Automated 0.0 per 100 WBC Normal 0.0 [facility] Comment on above: Performed By: #### C LAURA BMP, MG #### [facility] [address] [place] [address] Deboner: Zaki Humphries MD Platelet mean volume (Bld) [Entitic vol] 9.6 fL Normal 8.1-13.5 [facility] Comment on above: Performed By: #### C LAURA BMP, MG #### [facility] [employer] [address] [place] [address] Deboner: Zaki Humphries MD Platelets (Bld) [#/Vol] 300 10*3/uL Normal 138-453 [facility] Comment on above: Performed By: #### C LAURA BMP, MG #### [facility] [address] [place] [address] Deboner: Zaki Humphries MD RBC (Bld) [#/Vol] 5.07 10*6/uL Normal 3.95-5.11 [facility] Comment on above: Performed By: #### C BC BMP, MG #### [facility] [address] [place] [address] Deboner: Zaki Humphries MD WBC (Bld) [#/Vol] 14.1 10*3/uL High 3.5-11.3 [facility] Comment on above: Performed By: #### C LAURA BMP, MG #### [facility] [address] [place] [address] Deboner: Zaki Humphries MD Erythrocyte distribution width (RBC) [Ratio] 13.2 % 11.8 - 14.4 % [place] Hematocrit (Bld) [Volume fraction] 47.1 % 36.3 - 47.1 % [place] Hemoglobin (Bld) [Mass/Vol] 15.0 g/dL 11.9 - 15.1 g/dL [place] Interpretation and review of laboratory results Abnormal [place] MCH (RBC) [Entitic mass] 29.6 pg 25.2 - 33.5 pg [place] MCHC (RBC) [Mass/Vol] 31.8 g/dL 28.4 - 34.8 g/dL [place] MCV (RBC) [Entitic vol] 92.9 fL 82.6 - 102.9 fL [place] Platelet mean volume (Bld) [Entitic vol] 9.6 fL 8.1 - 13.5 fL [place] Platelets (Bld) [#/Vol] 300 10*3/uL [place] RBC (Bld) [#/Vol] 5.07 10*6/uL 3.95 - 5.1 1 m/uL [place] WBC (Bld) [#/Vol] 0.0 10*3/uL 0.0 per 10 0 WBC [place] WBC (Bld) [#/Vol] 14.1 10*3/uL [place] CBC WITH AUTO DIFFERENTIALon 05-23-2019 Basophils (Bld) [#/Vol] 0.09 10*3/uL [place] Basophils/100 WBC (Bld) 1 % 0 - 2 % [place] Differential Type NOT REPORTED [place] Eosinophils (Bld) [#/Vol] 0.16 10*3/uL [place] Eosinophils/100 WBC (Bld) 1 % 1 - 4 % [place] Erythrocyte distribution width (RBC) [Ratio] 13.2 % 11.8 - 14.4 % [place] Hematocrit (Bld) [Volume fraction] 47.0 % 36.3 - 47.1 % [place] Hemoglobin (Bld) [Mass/Vol] 14.8 g/dL 11.9 - 15.1 g/dL [place] Immature granulocytes (Bld) [#/Vol] 0.11 10*3/uL [place] Immature granulocytes (Bld) [#/Vol] 1 % High 0 [place] Interpretation and review of laboratory results Abnormal [place] Lymphocytes (Bld) [#/Vol] 4.10 10*3/uL [place] Lymphocytes/100 WBC (Bld) 26 % 24 - 43 % [place] MCH (RBC) [Entitic mass] 29.6 pg 25.2 - 33.5 pg [place] MCHC (RBC) [Mass/Vol] 31.5 g/dL 28.4 - 34.8 g/dL [place] MCV (RBC) [Entitic vol] 94.0 fL 82.6 - 102.9 fL [place] Monocytes (Bld) [#/Vol] 1.05 10*3/uL [place] Monocytes/100 WBC (Bld) 7 % 3 - 12 % [place] Platelet mean volume (Bld) [Entitic vol] 9.3 fL 8.1 - 13.5 fL [place] Platelets (Bld) [#/Vol] 296 10*3/uL [place] Platelets (Bld) [#/Vol] NOT REPORTED [place] RBC (Bld) [#/Vol] 5.00 10*6/uL 3.95 - 5.1 1 m/uL [place] RBC morphology finding Nom (Bld) NOT REPORTED [place] Segmented neutrophils/100 WBC (Bld) 64 % 36 - 65 % [place] Segs Absolute 10.39 High [place] WBC (Bld) [#/Vol] 0.0 10*3/uL 0.0 per 10 0 WBC [place] WBC (Bld) [#/Vol] 15.9 10*3/uL [place] WBC Morphology NOT REPORTED [place] CBC with Diffon 05-23-2019 Abs. Basophil 0.09 k/uL Normal 0.00-0.20 [facility] Comment on above: Performed By: #### C DP, BMP, LIPR, MG, GLYHGB #### [address] [address] Deboner: Zaki Humphries MD Abs.Imm.Granulocyte 0.11 k/uL Normal 0.00-0.30 [facility] Comment on above: Performed By: #### C DP, BMP, LIPR, MG, GLYHGB #### [address] [address] Deboner: Zaki Humphries MD Abs.Neutrophil (Seg) 10.39 k/uL High 1.50-8.10 [facility] Comment on above: Performed By: #### C DP, BMP, LIPR, MG, GLYHGB #### [address] [address] Deboner: Zaki Humphries MD Basophils/100 WBC (Bld) 1 % Normal 0-2 [facility] Comment on above: Performed By: #### C DP, BMP, LIPR, MG, GLYHGB #### [place] [address] Deboner: Zaki Humphries MD Eosinophils (Bld) [#/Vol] 0.16 10*3/uL Normal 0.00-0.44 [facility] Comment on above: Performed By: #### C DP, BMP, LIPR, MG, GLYHGB #### [address] [address] Deboner: Zaki Humphries MD Eosinophils/100 WBC (Bld) 1 % Normal 1-4 [facility] Comment on above: Performed By: #### C DP, BMP, LIPR, MG, GLYHGB #### [address] [address] Deboner: Zaki Humphries MD Erythrocyte distribution width (RBC) [Ratio] 13.2 % Normal 11.8-14.4 [facility] Comment on above: Performed By: #### C DP, BMP, LIPR, MG, GLYHGB #### [facility] [employer] [address] [place] [address] Deboner: Zaki Humphries MD Hematocrit (Bld) [Volume fraction] 47.0 % Normal 36.3-47.1 [facility] Comment on above: Performed By: #### C DP, BMP, LIPR, MG, GLYHGB #### [facility] [employer] [address] [place] [address] Deboner: Zaki Humphries MD Hemoglobin (Bld) [Mass/Vol] 14.8 g/dL Normal 11.9-15.1 [facility] Comment on above: Performed By: #### C DP, BMP, LIPR, MG, GLYHGB #### [address] [address] Deboner: Zaki Humphries MD Immature granulocytes (Bld) [#/Vol] 1 % High 0 [facility] Comment on above: Performed By: #### C DP, BMP, LIPR, MG, GLYHGB #### [facility] [employer] [address] [place] [address] 278[address] Deboner: Zaki Humphries MD Lymphocytes (Bld) [#/Vol] 4.10 10*3/uL High 1.10-3.70 [facility] Comment on above: Performed By: #### C DP, BMP, LIPR, MG, GLYHGB #### [facility] [employer] [address] [place] [address] Deboner: Zaki Humphries MD Lymphocytes/100 WBC (Bld) 26 % Normal 24-43 [facility] Comment on above: Performed By: #### C DP, BMP, LIPR, MG, GLYHGB #### [facility] [employer] [address] [place] [address] [phone] Deboner: Zaik Humphries MD MCH (RBC) [Entitic mass] 29.6 pg Normal 25.2-33.5 [facility] Comment on above: Performed By: #### C DP, BMP, LIPR, MG, GLYHGB #### [address] [address] Deboner: Zaki Humphries MD MCHC (RBC) [Mass/Vol] 31.5 g/dL Normal 28.4-34.8 [facility] Comment on above: Performed By: #### C DP, BMP, LIPR, MG, GLYHGB #### [address] [address] Deboner: Zaki Humphries MD MCV (RBC) [Entitic vol] 94.0 fL Normal 82.6-102.9 [facility] Comment on above: Performed By: #### C DP, BMP, LIPR, MG, GLYHGB #### [address] [address] Deboner: Zaki Humphries MD Monocytes (Bld) [#/Vol] 1.05 10*3/uL Normal 0.10-1.20 [facility] Comment on above: Performed By: #### C DP, BMP, LIPR, MG, GLYHGB #### [address] [address] Deboner: Zaki Humphries MD Monocytes/100 WBC (Bld) 7 % Normal 3-12 [facility] Comment on above: Performed By: #### C DP, BMP, LIPR, MG, GLYHGB #### [address] [address] Deboner: Zaki Humphries MD Neutrophil (Seg) 64 % Normal 36-65 [facility] Comment on above: Performed By: #### C DP, BMP, LIPR, MG, GLYHGB #### [address] [address] Deboner: Zaki Humphries MD NRBC Automated 0.0 per 100 WBC Normal 0.0 [facility] Comment on above: Performed By: #### C DP, BMP, LIPR, MG, GLYHGB #### [address] [address] Deboner: Zaki Humphries MD Platelet mean volume (Bld) [Entitic vol] 9.3 fL Normal 8.1-13.5 [facility] Comment on above: Performed By: #### C DP, BMP, LIPR, MG, GLYHGB #### [address] [address] Deboner: Zaki Humphries MD Platelets (Bld) [#/Vol] 296 10*3/uL Normal 138-453 [facility] Comment on above: Performed By: #### C DP, BMP, LIPR, MG, GLYHGB #### [address] [address] Deboner: Zaki Humphries MD RBC (Bld) [#/Vol] 5.00 10*6/uL Normal 3.95-5.11 [facility] Comment on above: Performed By: #### C DP, BMP, LIPR, MG, GLYHGB #### [address] [address] Deboner: Zaki Humphries MD WBC (Bld) [#/Vol] 15.9 10*3/uL High 3.5-11.3 [facility] Comment on above: Performed By: #### C DP, BMP, LIPR, MG, GLYHGB #### [address] [address] Deboner: Zaki Humphries MD Auto Diff Performed NOT REPORTED Normal [facility] Comment on above: Performed By: #### C DP, BMP, LIPR, MG, GLYHGB #### [address] [address] Deboner: Zaki Humphries MD Platelets (Bld) [#/Vol] NOT REPORTED Normal [facility] Comment on above: Performed By: #### C DP, BMP, LIPR, MG, GLYHGB #### [address] [address] Deboner: Zaki Humphries MD RBC morphology finding Nom (Bld) NOT REPORTED Normal [facility] Comment on above: Performed By: #### C DP, BMP, LIPR, MG, GLYHGB #### [facility] [employer] [address] [place] [address] Deboner: Zaki Humphries MD WBC Morphology NOT REPORTED Normal [facility] Comment on above: Performed By: #### C DP, BMP, LIPR, MG, GLYHGB #### [facility] [employer] [address] [place] [address] Deboner: Zaki Humphries MD Drug Scr, Abuse, Uron 2019 Amphetamine(s),Ur Negative Normal NEG [facility] Comment on above: Result Comment: (Positive cutoff 1000 ng/mL) Performed By: #### D AU #### [address] [address] Deboner: Zaki Humphries MD Barbiturate(s),Ur Negative Normal NEG [facility] Comment on above: Result Comment: (Positive cutoff 200 ng/mL) Performed By: #### D AU #### [address] [address] Deboner: Zaki Humphries MD Base excess Calc (Bld) [Moles/Vol] Negative Normal NEG [facility] Comment on above: Result Comment: (Positive cutoff 300 ng/mL) Performed By: #### D AU #### [address] [address] Deboner: Zaki Humphries MD Benzodiazepine(s) Negative Normal NEG [facility] Comment on above: Result Comment: (Positive cutoff 200 ng/mL) Performed By: #### D AU #### [address] [address] Deboner: Zaki Humphries MD Cannabinoid(s),Ur Negative Normal NEG [facility] Comment on above: Result Comment: (Positive cutoff 50 ng/mL) Performed By: #### D AU #### [address] [address] Deboner: Zaki Humphries MD Interpretive Info Assay provides medic al screening only. The absence of expected drug(s) and/or Normal [facility] Comment on above: Result Comment: meta bolite(s) may indicate diluted or adulterated urine, limitations of testing or timing of collection. Testing for legal purposes should be confirmed by another method. To request confirmation of test result, please call the lab within 7 days of sample submission. Performed By: #### D AU #### [address] [address] Deboner: Zaki Humphries MD Methadone Ql (U) Negative Normal NEG [facility] Comment on above: Result Comment: (Positive cutoff 300 ng/mL) Performed By: #### D AU #### [address] [address] Deboner: Zaki Humphries MD Opiate(s), Ur Negative Normal NEG [facility] Comment on above: Result Comment: (Positive cutoff 300 ng/mL) Performed By: #### D AU #### [address] [address] Deboner: Zaki Humphries MD Oxycodone, Urine Negative Normal NEG [facility] Comment on above: Result Comment: (Positive cutoff 100 ng/mL) Performed By: #### D AU #### [facility] [address] [place] [address] [phone] Deboner: Zaki Humphries MD Phencyclidine, Ur Negative Normal NEG [facility] Comment on above: Result Comment: (Positive cutoff 25 ng/mL) Performed By: #### D AU #### [address] [phone] Deboner: Zaki Humphries MD EEG video monitoringon 05-22 Meño Reyez MD 05/23/2019 9:31 PM LONG-TERM EEG-VIDEO MONITORING CLINICAL NEUROPHYSIOLOGY LABORATORY DEPARTMENT OF NEUROLOGY [facility] Patient: Suly Huffman Age: 58 y.o. Referring Physician: No ref. [...] 100 mg Oral TID PRN Sandra Lock APRN - [employer] 100 mg at 05/23/19 1012 fluticasone (FLONASE) 50 MCG/ACT nasal spray 1 spray 1 spray Each Nostril Daily Sandra Lock APRN - [employer] 1 spray at 05/23/19 1012 levETIRAcetam (KEPPRA) tablet 500 mg 500 mg Oral BID Bettie Horn DO sodium chloride flush 0.9 % injection 10 mL 10 mL Intravenous PRN Sandra Lock [employer] - [employer] sodium chloride flush 0.9 % injection 10 mL 10 mL Intravenous 2 times per day Bettie Horn DO 10 mL at 05/23/19 0842 sodium chloride flush 0.9 % injection 10 mL 10 mL Intravenous PRN Bettie Horn DO magnesium sulfate 1 g in dextrose 5% 100 mL IVPB 1 g Intravenous PRN Bettie Justina, DO acetaminophen (TYLENOL) tablet 650 mg 650 mg Oral Q4H PRN Bettie Justina, DO 650 mg at 05/23/19 1735 niMODipine (NIMOTOP) capsule 60 mg 60 mg Oral 6 times per day Bettie Justina, DO 60 mg at 05/23/19 173 perflutren lipid microspheres (DEFINITY) injection 1.65 mg [...] revealed no abnormalities. MEÑO REYEZ MD Diplomate, [place] [employer] Diplomate, [place] [employer] Clinical Neurophysiology Diplomate, [place] [employer] Epilepsy Please note this is a preliminary report and updated daily. The final report will have a summary of behavior and electrographic findings with clinical correlation. [place], [place] EKG 12 Leadon 05-23-2019 Atrial Rate 52 BPM [place], [place] P Casco 32 degrees [place] P-R Interval 194 ms [place] Q-T Interval 468 ms [facility], [place] QRS Duration 86 ms [place] QTc Calculation (Bazett) 435 ms [place], [place] R Casco -30 degrees [facility], [place] T Casco -5 degrees [place] Ventricular Rate 52 BPM [place] Sinus bradycardia Le ft axis deviation Abnormal ECG No previous ECGs available [place] Juancarlos, Mhpn Incoming E kg Results From [facility] - 05/23/2019 2:16 PM EDT Sinus bradycardia Left axis deviation Abnormal ECG No previous ECGs available [place] HEMOGLOBIN A1Con 05-23-2019 Glucose [Mass/Vol] 111 mg/dL [place] Comment on above: The ADA and AACC rec ommend providing the estimated average glucose result to permit better patient understanding of their HBA1c result. HbA1c (Bld) [Mass fraction] 5.5 % 4 - 6 % [place] Hemoglobin A1Con 05-23-2019 HbA1c (Bld) [Mass fraction] 5.5 % Normal 4.0-6.0 [facility] Comment on above: Performed By: #### C DP, BMP, LIPR, MG, GLYHGB #### [employer] [address] [place], [place] [id number] Deboner: Zaki Humphries MD HbA1c (Bld) [Mass fraction] 111 mg/dL Normal [facility] Comment on above: Result Comment: The ADA and AACC recommend providing the estimated average glucose result to permit better patient understanding of their HBA1c result. Performed By: #### C DP, BMP, LIPR, MG, GLYHGB #### [employer] [address] [place], [place] [id number] Deboner: Zaki Humphries MD LIPID PANELon 05-23-2019 Cholesterol [Mass/Vol] 150 mg/dL <200 [place] Comment on above: Cholesterol Guidelines: <200 Desirable 200-240 Borderline >240 Undesirable Cholesterol in HDL [Mass/Vol] 31 mg/dL Low >40 [place] Comment on above: HDL Guidelines: <40 Undesirable 40-59 Borderline >59 Desirable Cholesterol in LDL [Mass/Vol] 74 mg/dL 0 - 130 mg/dL [place] Comment on above: LDL Guidelines: <100 Desirable 100-129 Near to/above Desirable 130-159 Borderline >159 Undesirable Direct (measured) LDL and calculated LDL are not interchangeable tests. Cholesterol in VLDL [Mass/Vol] NOT REPORTED High 1 - 30 mg/dL [place] Cholesterol.total/Ch olesterol in HDL [Mass ratio] 4.8 {ratio} <5 [place] Triglyceride [Mass/Vol] 226 mg/dL High <150 [place] Comment on above: Triglyceride Guidelines: <150 Desirable 150-199 Borderline 200-499 High >499 Very high Based on AHA Guidelines for fasting triglyceride, December 2011. Lipid Profileon 05-23-2019 Cholesterol [Mass/Vol] 150 mg/dL Normal <200 [facility] Comment on above: Result Comment: Cholesterol Guidelines: <200 Desirable 200-240 Borderline >240 Undesirable Performed By: #### C DP, BMP, LIPR, MG, GLYHGB #### [facility] [employer] [facility] [place], [place] [phone] Deboner: Zaki Humphries MD Cholesterol in HDL [Mass/Vol] 31 mg/dL Low >40 [facility] Comment on above: Result Comment: HDL Guidelines: <40 Undesirable 40-59 Borderline >59 Desirable Performed By: #### C DP, BMP, LIPR, MG, GLYHGB #### [facility] [employer] [address] [place], [place] [phone] Deboner: Zaki Humphries MD Cholesterol in LDL [Mass/Vol] 74 mg/dL Normal 0-130 [facility] Comment on above: Result Comment: LDL Guidelines: <100 Desirable 100-129 Near to/above Desirable 130-159 Borderline >159 Undesirable Direct (measured) LDL and calculated LDL are not interchangeable tests. Performed By: #### C DP, BMP, LIPR, MG, GLYHGB #### [facility] [employer] [address] [place] [address] Deboner: Zaki Humphries MD Cholesterol.total/Ch olesterol in HDL [Mass ratio] 4.8 {ratio} Normal <5 [facility] Comment on above: Performed By: #### C DP, BMP, LIPR, MG, GLYHGB #### [facility] [employer] [address] [place] [address] Deboner: Zaki Humphries MD Triglyceride [Mass/Vol] 226 mg/dL High <150 [facility] Comment on above: Result Comment: Triglyceride Guidelines: <150 Desirable 150-199 Borderline 200-499 High >499 Very high Based on AHA Guidelines for fasting triglyceride, December 2011. Performed By: #### C DP, BMP, LIPR, MG, GLYHGB #### [facility] [employer] [address] [place] [address] Deboner: Zaki Humphries MD Cholesterol in VLDL [Mass/Vol] NOT REPORTED Normal 1-30 [facility] Comment on above: Performed By: #### C DP, BMP, LIPR, MG, GLYHGB #### [facility] [employer] [address] [place] [address] Deboner: Zaki Humphries MD MAGNESIUMon 05-23-2019 Magnesium [Mass/Vol] 2.4 mg/dL 1.6 - 2 .6 mg/dL [place] MRSA DNA Probe, Nasalon MRSA, DNA, Nasal NEGATIVE: MRSA DNA n ot detected by nucleic acid amplification. NEGATIVE: MRSA DNA not detected by nucleic acid amplificati [place] Comment on above: Results should be used as an adjunct to nosocomial control efforts to identify patients needing enhanced precautions. The test is not intended to identify patients with staphylococcal infections. Results should not be used to guide or monitor treatment for MRSA infections. Specimen Description .NASAL SWAB [place], [place] MRSA, DNA, Nasalon 0 MRSA, DNA, Nasal NEGATIVE: MRSA DNA n ot detected by nucleic acid amplification. Normal NMRSAA [facility] Comment on above: Result Comment: Results should be used as an adjunct to nosocomial control efforts to identify patients needing enhanced precautions. The test is not intended to identify patients with staphylococcal infections. Results should not be used to guide or monitor treatment for MRSA infections. Performed By: #### M RSANO ####[employer] [id number] [place] [address] Lab Director: Zaki Humphries MD Magnesiumon 05-23-2019 Magnesium [Mass/Vol] 2.4 mg/dL Normal 1.6-2.6 [facility] Comment on above: Performed By: #### C BC, BMP, MG ####[facility] [address] [place] [address] Lab Director: Zaki Humphries MD Magnesium [Mass/Vol] 2.4 mg/dL 1.6 - 2 .6 mg/dL [place] Magnesium [Mass/Vol] 2.4 mg/dL Normal 1.6-2.6 [facility] Comment on above: Performed By: #### C DP, BMP, LIPR, MG, GLYHGB #### [facility] [address] [place] [address] Deboner: Zaki Humphries MD Otheron 05-23-2019 Interpretation and review of laboratory results Abnormal [place] PROTIME-INRon 05-23-2019 INR Coag (PPP) [Relative time] 1.0 {INR} [place] Comment on above: Therapeutic Range: Moderate Anticoagulant Intensity: INR = 2.0-3.0 High Anticoagulant Intensity: INR = 2.5-3.5 PT Coag (PPP) [Time] 11 s [place], [place] PTon 05-23-2019 INR Coag (PPP) [Relative time] 1.0 {INR} Normal [facility] Comment on above: Result Comment: Therapeutic Range: Moderate Anticoagulant Intensity: INR = 2.0-3.0 High Anticoagulant Intensity: INR = 2.5-3.5 Performed By: #### P TT, PT ####[address] [place] [address] Lab Director: Zaki Humphries MD PT Coag (PPP) [Time] 11.0 s Normal 9.0-12.0 [facility] Comment on above: Performed By: #### P TT, PT ####[address] [address] Lab Director: Zaki Humphries MD Troponinon 05-23-2019 Troponin I.cardiac [Mass/Vol] 7 ng/L Normal 0-14 [facility] Comment on above: Result Comment: High Sensitivity Troponin values cannot be compared with other Troponin methodologies. Patients with high levels of Biotin oral intake (i.e >5mg/day) may have falsely decreased Troponin levels. Samples collected within 8 hours of biotin intake may require additional information for diagnosis. Performed By: #### T ROPI ####[address] [address] Lab Director: Zaki Humphries MD Troponin I.cardiac [Mass/Vol] NOT REPORTED Normal <0.03 [facility] Comment on above: Performed By: #### T ROPI ####[address] [address] Lab Director: Zaki Humphries MD Troponin I.cardiac [Mass/Vol] NOT REPORTED [place] Troponin T.cardiac [Mass/Vol] NOT REPORTED <0.03 ng/mL [place] Troponin, High Sensitivity 7 ng/L 0 - 14 ng/L [place] Comment on above: High Sensitivity Troponin values cannot be compared with other Troponin methodologies. Patients with high levels of Biotin oral intake (i.e >5mg/day) may have falsely decreased Troponin levels. Samples collected within 8 hours of biotin intake may require additional information for diagnosis. Troponin I.cardiac [Mass/Vol] 7 ng/L Normal 0-14 [facility] Comment on above: Result Comment: High Sensitivity Troponin values cannot be compared with other Troponin methodologies. Patients with high levels of Biotin oral intake (i.e >5mg/day) may have falsely decreased Troponin levels. Samples collected within 8 hours of biotin intake may require additional information for diagnosis. Performed By: #### T ROPI ####[facility] [address] [place], [place] [id number] Lab Director: Zaki Humphries MD Troponin I.cardiac [Mass/Vol] NOT REPORTED Normal [facility] Comment on above: Performed By: #### T ROPI ####[facility] [address] [place], [place] [id number] lab Director: Zaki Humphries MD Troponin I.cardiac [Mass/Vol] NOT REPORTED [place] Troponin T.cardiac [Mass/Vol] NOT REPORTED <0.03 ng/mL [place] Troponin, High Sensitivity 7 ng/L 0 - 14 ng/L [place] Comment on above: High Sensitivity Troponin values cannot be compared with other Troponin methodologies. Patients with high levels of Biotin oral intake (i.e >5mg/day) may have falsely decreased Troponin levels. Samples collected within 8 hours of biotin intake may require additional information for diagnosis. VL TRANSCRANIAL DOPPLER COMP LETEon 05-23-2019 Juancarlos, pn Incoming Cardio Results From Cpa/Ge - 05/23/2019 5:15 PM EDT [facility] Vascular Transcranial Procedure Patient Name NATHANAEL Date of Study 05/23/2019 SULY Farmer Date of 1960 Gender Female Age 58 year(s) Race Room Number 0523 Corporate ID [id number] # Patient Acct [id number] # MR # [id number] Roller Coaster Engineer Carole Hooks RVT, RDMS Interpreting Gunnar Morgan Physician Referring Referring Physician SANDRA [employer] [facility] [employer] Nurse Practitioner Additional Comments CLASSIFICATION OF VASOSPASM [...] Conclusions Summary Normal bilateral transcranial Doppler. Signature Electronically signed by [facility]) on 05/23/2019 05:15 PM Findings: Right Impression: Left Impression: Right Lindegaard Ratio = 2.93 Left Lindegaard Ratio = 2.05 MEAN VELOCITIES: MEAN VELOCITIES: Transtemporal Approach Transtemporal Approach Proximal MCA: 91.2 Proximal MCA: 68.9 Mid MCA: 68.1 Mid MCA: 57 Distal MCA: 58.5 Distal MCA: 62.8 Proximal AMAIRANI: 70.5 Proximal AMAIRANI: 85.1 Mid AMAIRANI: 83.9 Mid AMAIRANI: 105 DIRECTOR INDUSTRIAL NURSING: 32.3 DIRECTOR INDUSTRIAL NURSING: 22.7 T ICA: 40.4 T ICA: 37.7 [...] + +-------+- ------+--------+------ -+-------+--------+--- --------- + [facility] Vascular Transcranial Procedure Patient Name NATHANAEL Date of Study 05/23/2019 SULY Farmer Date of 1960 Gender Female Age 58 year(s) Race Room Number 0523 Corporate ID [id number] # Patient Acct [id number] # MR # [id number] Roller Coaster Engineer Carole Hooks RVT, RDMS Interpreting Gunnar Morgan [...] Conclusions Summary Normal bilateral transcranial Doppler. Signature Electronically signed by Gunnar Morgan([facility] physician) on 05/23/2019 05:15 PM Findings: Right Impression: Left Impression: Right Lindegaard Ratio = 2.93 Left Lindegaard Ratio = 2.05 MEAN VELOCITIES: MEAN VELOCITIES: Transtemporal Approach Transtemporal Approach Proximal MCA: 91.2 Proximal MCA: 68.9 Mid MCA: 68.1 Mid MCA: 57 Distal MCA: 58.5 Distal MCA: 62.8 Proximal AMAIRANI: 70.5 Proximal AMAIRANI: 85.1 Mid AMAIRANI: 83.9 Mid AMAIRANI: 105 DIRECTOR INDUSTRIAL NURSING: 32.3 DIRECTOR INDUSTRIAL NURSING: 22.7 T ICA: 40.4 T ICA: 37.7 [...] ! ! + +-------+- ------+--------+------ -+-------+--------+--- ---------+ [facility] [place], [place] CBC AUTO DIFFon 05-22-2019 Basophils (Bld) [#/Vol] 0.1 103/ul Normal 0.0-0.1 [facility] Comment on above: Performed By: #### C BC #### [facility] [address] [place], [place] [address] Piotr Marilee Basophils/100 WBC (Bld) 0.6 % Normal 0.2-2.0 [facility] Comment on above: Performed By: #### C BC #### [facility] [address] [place], [place] [address] Piotr Marilee Eosinophils (Bld) [#/Vol] 0.2 103/ul Normal 0.0-0.7 [facility] Comment on above: Performed By: #### C BC #### [facility] [address] [place], [place] [address] Piotr Marilee Eosinophils/100 WBC (Bld) 1.5 % Normal 0.9-7.0 [facility] Comment on above: Performed By: #### C BC #### [facility] [address] [place] [address] Piotr Hunt Erythrocyte distribution width (RBC) [Ratio] 13.2 % Normal 11.0-15.0 [facility] Comment on above: Performed By: #### C BC #### [facility] [address] [place] [address] Piotr Marilee Hematocrit (Bld) [Volume fraction] 47.0 % Normal 36.0-48.0 [facility] Comment on above: Performed By: #### C BC #### [facility] [address] [place] [address] Piotr Marilee Hemoglobin (Bld) [Mass/Vol] 15.5 g/dL Normal 12.0-16.0 [facility] Comment on above: Performed By: #### C BC #### [facility] [address] [place] [address] Piotrelías Hunt IG # 0.10 10e3/ul Critically high 0.00-0.03 [facility] Comment on above: Performed By: #### C BC #### [facility] [address] [place] [address] Piotrelías Hunt IG % 0.8 % Critically high 0.0-0.5 [facility] Comment on above: Performed By: #### C BC #### [facility] [address] [place] [address] Piotr Marilee Lymphocytes (Bld) [#/Vol] 3.3 103/ul Normal 1.2-3.8 [facility] Comment on above: Performed By: #### C BC #### [facility] [address] [place], [place] [id number] Piotr Marilee Lymphocytes/100 WBC (Bld) 25.7 % Normal 20.5-60.0 [facility] Comment on above: Performed By: #### C BC #### [facility] [address] [place], [place] [id number] Piotr Hunt MANUAL DIFF REQ NO Normal [facility] Comment on above: Performed By: #### C BC #### [facility] [address] [place], [place] [address] Piotrelías Hunt MCH (RBC) [Entitic mass] 29.5 pg Normal 26.7-34.0 [facility] Comment on above: Performed By: #### C BC #### [facility] [address] [place], [place] [address] Piotrelías Hunt MCHC (RBC) [Mass/Vol] 33.0 g/dL Normal 29.9-35.2 [facility] Comment on above: Performed By: #### C BC #### [facility] [address] [place], [place] [address] Piotrelías Hunt MCV (RBC) [Entitic vol] 89.5 fL Normal 81.0-99.0 [facility] Comment on above: Performed By: #### C BC #### [facility] [address] [place] [address] Piotr Marilee Monocytes (Bld) [#/Vol] 1.0 103/ul Critically high 0.3-0.8 [facility] Comment on above: Performed By: #### C BC #### [facility] [address] [place] [address] Piotr Marilee Monocytes/100 WBC (Bld) 7.5 % Normal 1.7-12.0 [facility] Comment on above: Performed By: #### C BC #### [facility] [address] [place] [address] Piotr Marilee Neutrophils (Bld) [#/Vol] 8.1 103/ul Critically high 1.4-6.5 [facility] Comment on above: Performed By: #### C BC #### [facility] [address] [place] [address] Piotr Marilee Neutrophils/100 WBC (Bld) 63.9 % Normal 43.0-75.0 [facility] Comment on above: Performed By: #### C BC #### [facility] [address] [place], [place] [address] Piotr Marilee Platelet mean volume (Bld) [Entitic vol] 9.3 fL Critically low 9.5-13.5 [facility] Comment on above: Performed By: #### C BC #### [facility] [address] [place], [place] [address] Piotr Hunt Platelets (Bld) [#/Vol] 319 103/ul Normal 150-450 [facility] Comment on above: Performed By: #### C BC #### [facility] [address] [place] [address] Piotr Hunt RBC (Bld) [#/Vol] 5.25 106/ul Normal 4.20-5.40 [facility] Comment on above: Performed By: #### C BC #### [facility] [address] [place] [address] Piotr Hunt WBC (Bld) [#/Vol] 12.7 103/ul Critically high 4.0-11.0 [facility] Comment on above: Performed By: #### C BC #### [facility] [address] [place] [address] HEAD WO CONon 05-22-2019 [...] time on May 22, 2019. Normal [facility] CTA HEAD NECK W CONTRASTon 0 05-22-2019 [...] John Jordan MD 05/22/19 Final result Normal [facility] Juancarlos, Mhpn Incoming Radiant Results From [employer]acs - 05/22/2019 8:26 PM EDT EXAMINATION: CTA [...] occlusion detected within the head or neck. [facility] [place] EXAMINATION: CTA OF THE HEAD [...] See separately dictated noncontrast head CT report. [place], [place] No cerebral aneurysm or vascular malformation visualized. No flow limiting stenosis or large vessel occlusion detected within the head or neck. [place] DRUG SCREEN MULTI URINEon Amphetamine Screen, Ur Negative NEGATIVE [place] Comment on above: (Positive cutoff 1000 ng/mL) Barbiturate Screen, Ur Negative NEGATIVE [place] Comment on above: (Positive cutoff 200 ng/mL) Benzodiazepine Screen, Urine Negative NEGATIVE [place] Comment on above: (Positive cutoff 200 ng/mL) Buprenorphine Urine NOT REPORTED NEGATIVE [place], [place] Cannabinoid Scrn, Ur Negative NEGATIVE [place] Comment on above: (Positive cutoff 50 ng/mL) Cocaine Metabolite, Urine Negative NEGATIVE [place] Comment on above: (Positive cutoff 300 ng/mL) MDMA, Urine NOT REPORTED NEGATIVE [place], [place] Methadone Screen, Urine Negative NEGATIVE [place] Comment on above: (Positive cutoff 300 ng/mL) Methamphetamine, Urine NOT REPORTED NEGATIVE [facility] [place], [place] Opiates, Urine Negative NEGATIVE [facility], [place] Comment on above: (Positive cutoff 300 ng/mL) Oxycodone Screen, Ur Negative NEGATIVE [facility] [place], [place] Comment on above: (Positive cutoff 100 ng/mL) Phencyclidine, Urine Negative NEGATIVE [facility] [place], [place] Comment on above: (Positive cutoff 25 ng/mL) Propoxyphene, Urine NOT REPORTED NEGATIVE [facility], [place] Test Information Assay provides medic al screening only. The absence of expected drug(s) and/or metabolite(s) may indicate diluted or adulterated urine, limitations of testing or timing of collection. [facility] [place] Comment on above: Testing for legal pu rposes should be confirmed by another method. To request confirmation of test result, please call the lab within 7 days of sample submission. Tricyclic Antidepressants, Urine NOT REPORTED NEGATIVE [facility] [place], [place] Drug Scr, Abuse, Uron 2019 Buprenorphrine, Ur NOT REPORTED Normal NEG [facility] Comment on above: Performed By: #### D AU #### [employer] [address] [place] [address] [phone] Deboner: Zaki Humphries MD MDMA, Urine NOT REPORTED Normal NEG [facility] Comment on above: Performed By: #### D AU #### [employer] [address] [place] [address] [id number] Deboner: Zaki Humphries MD Methamphetamine, Ur NOT REPORTED Normal NEG [facility] Comment on above: Performed By: #### D AU #### [employer] [address] [place] [address] [phone] Deboner: Zaki Humphries MD Propoxyphene,Urine NOT REPORTED Normal NEG [facility] Comment on above: Performed By: #### D AU #### [employer] [address] [place] [address] [phone] Deboner: Zaki Humphries MD Tricyclic antidepressants Screen Ql (U) NOT REPORTED Normal NEG [facility] Comment on above: Performed By: #### D AU #### [address] [place] [address] Deboner: Zaki Humphries MD ER URINE PROFILEon 0 Bilirubin [Mass/Vol] Negative Normal NEGATIVE [facility] Comment on above: Performed By: #### E RUR ####[facility] [address] [place] [phone] Marilee BLOOD Negative Normal NEGATIVE [facility] Comment on above: Performed By: #### E RUR ####[facility] [address] [place] [address] Marilee Clarity (U) CLEAR Normal [facility] Comment on above: Performed By: #### E RUR ####[facility] [address] [place] [address] Marilee Color (U) LT. YELLOW Normal YELLOW [facility] Comment on above: Performed By: #### E RUR ####[facility] [address] [place] [address] Marilee ERUAHD A micrscopic examination will be performed if indicated. Normal [facility] Comment on above: Performed By: #### E RUR ####[facility] [address] [place], [place] [id number] Marilee Glucose [Mass/Vol] Negative Normal NEGATIVE [facility] Comment on above: Performed By: #### E RUR ####[facility] [address] [place] [address] Marilee Ketones Ql (U) Negative Normal NEGATIVE [facility] Comment on above: Performed By: #### E RUR ####[facility] [address] [place], [place] [address]ken Marilee Nitrite Ql (U) Negative Normal NEGATIVE [facility] Comment on above: Performed By: #### E RUR ####[facility] [address] [place] [address] Marilee pH (Bld) 6.0 Normal 5-9 [facility] Comment on above: Performed By: #### E RUR ####[facility] [address] [place], [place] [address]Soszus Marilee Protein (U) [Mass/Vol] Negative Normal [facility] Comment on above: Performed By: #### E RUR ####[facility] [address] [place], [place] [address]Wznivm Karen SPEC GRAVITY 1.010 Normal 1.005-<=1.025 [facility] Comment on above: Performed By: #### E RUR ####[facility] [address] [place] [phone] Marilee UR MICRO IND NOT INDICATED Normal [facility] Comment on above: Performed By: #### E RUR ####[facility] [address] [place] [address]Zrhlzr Mairlee Urobilinogen Qn (U) 0.2 EU/dl Normal [facility] Comment on above: Performed By: #### E RUR ####[facility] [address] [place], [place] [address]Gerken Marilee WBC (Bld) [#/Vol] Negative Normal NEGATIVE [facility] Comment on above: Performed By: #### E RUR ####[facility] [address] [place] [address]Vvccel Marilee LACTATE/LACTIC ACIDon 2019 Lactate [Moles/Vol] 0.9 mmol/L Normal 0.7-2.0 [facility] Comment on above: Performed By: #### L ACT ####[facility] [address] [place] [address]Emiual Marilee MRI BRAIN W WO CONTRASTon MRI BRAIN [...] Filiberto Chamberlain MD 05/22/19 Final result Normal [facility] Juancarlos, Mhpn Incoming Radiant Results From [employer]/Pacs - 05/22/2019 8:06 PM EDT EXAMINATION: MRI [...] discussed with Dr. Iqbal at 7:56 p.m. [place], [place] Subarachnoid hemorrhage central sulcus on the [...] discussed with Dr. Iqbal at 7:56 p.m. [place], [place] EXAMINATION: MRI OF THE BRAIN WITHOUT [...] signal within the mastoid air cells bilaterally. [facility], [place] MRSA, DNA, Nasalon 0 Specimen Description .NASAL SWAB Normal [facility] Comment on above: Performed By: #### M RSANO ####[facility] [address] [place] [address] lab Director: Zaki Humphries MD PROF 14(COMP METB)on 020 Albumin [Mass/Vol] 3.8 g/dL Normal 3.5-5.0 [facility] Comment on above: Performed By: #### C MP, TROP, TSH #### [facility] [address] [place] [address] Piotr Marilee Albumin/Globulin [Mass ratio] 0.9 {ratio} Normal [facility] Comment on above: Performed By: #### C MP, TROP, TSH #### [facility] [address] [place], [place] [address] Piotr Marilee ALP [Catalytic activity/Vol] 59 U/L Normal 38-126 [facility] Comment on above: Performed By: #### C MP, TROP, TSH #### [facility] [address] [place], [place] [address] Piotr Marilee ALT [Catalytic activity/Vol] 64 U/L Critically high 9-52 [facility] Comment on above: Performed By: #### C MP, TROP, TSH #### [facility] [address] [place], [place] [address] Piotr Marilee Anion gap [Moles/Vol] 15.5 mmol/L Normal [facility] Comment on above: Performed By: #### C MP, TROP, TSH #### [facility] [address] [place] [address] Piotr Marilee AST [Catalytic activity/Vol] 33 U/L Normal 14-36 [facility] Comment on above: Performed By: #### C J CARLOS TROP, TSH #### [facility] [address] [place] [address] Piotr Marilee Bilirubin Ql (U) 0.3 mg/dL Normal 0.2-1.3 [facility] Comment on above: Performed By: #### C J CARLOS TROP, TSH #### [facility] [address] [place] [address] Piotr Marilee Calcium [Mass/Vol] 9.7 mg/dL Normal 8.4-10.2 [facility] Comment on above: Performed By: #### C J CARLOS TROP, TSH #### [facility] [address] [place] [address] Piotr Amrilee Chloride [Moles/Vol] 100 mmol/L Normal 98-107 [facility] Comment on above: Performed By: #### C J CARLOS TROP, TSH #### [facility] [address] [place] [address] Piotr Marilee CO2 [Moles/Vol] 27.2 mmol/L Normal 22.0-30.0 [facility] Comment on above: Performed By: #### C J CARLOS TROP, TSH #### [facility] [address] [place] [address] Piotr Marilee Creatinine [Mass/Vol] 0.80 mg/dL Normal 0.52-1.04 [facility] Comment on above: Performed By: #### C J CARLOS TROP, TSH #### [facility] [address] [place] [address] Piotr Marilee EGFR-AF MOLDOVAN >60 Normal >=60 [facility] Comment on above: Performed By: #### C MP TROP, TSH #### [facility] [address] [place] [address] Piotr Marilee EGFR-NON AF MOLDOVAN >60 Normal >=60 [facility] Comment on above: Performed By: #### C MP TROP, TSH #### [facility] [address] [place] [address] Piotr Marilee Globulin (S) [Mass/Vol] 4.2 g/dL Normal [facility] Comment on above: Performed By: #### C ANGELA WHITMAN, TSH #### [facility] [address] [place] [address] Piotr Marilee Glucose [Mass/Vol] 97 mg/dL Normal 74-106 [facility] Comment on above: Performed By: #### C ANGELA WHITMAN, TSH #### [facility] [address] [place] [address] Piotr Marilee Potassium [Moles/Vol] 3.7 mmol/L Normal 3.4-5.0 [facility] Comment on above: Performed By: #### C ANGELA WHITMAN, TSH #### [facility] [address] [place] [address] Piotr Marilee Protein [Mass/Vol] 8.0 g/dL Normal 6.1-8.2 [facility] Comment on above: Performed By: #### C ANGELA WHITMAN, TSH #### [facility] [address] [place] [address] Piotr Marilee Sodium [Moles/Vol] 139 mmol/L Normal 137-145 [facility] Comment on above: Performed By: #### C ANGELA WHITMAN, TSH #### [facility] [address] [place] [address] Piotr Marilee Urea nitrogen [Mass/Vol] 20.0 mg/dL Critically high 7.0-17.0 [facility] Comment on above: Performed By: #### C ANGELA WHITMAN, TSH #### [facility] [address] [place] [address] Piotr Marilee Urea nitrogen/Creatinine [Mass ratio] 25.0 mg/mg Normal [facility] Comment on above: Performed By: #### C ANGELA WHITMAN, TSH #### [facility] [address] [place] [address] Piotr Marilee PROTIMEon 05-22-2019 INR Coag (PPP) [Relative time] 1.07 {INR} Normal [facility] Comment on above: Performed By: #### P T, PTT #### [facility] [address] [place] [address] Piotr Marilee PT Coag (PPP) [Time] SEE BELOW Normal [facility] Comment on above: Result Comment: DUONG RED INR: 2.0 - 3.0 CONDITIONS NOT LISTED BELOW 2.5 - 3.5 FOR PROSTHETIC HEART VALVE REPLACEMENT 2.5 - 3.5 RECURRENT THROMBOSIS Performed By: #### P T, PTT #### [facility] [address] [place], [place] [id number] Piotr Marilee PT Coag (PPP) [Time] 11.1 s Normal 9.0-11.6 [facility] Comment on above: Performed By: #### P T, PTT #### [facility] [address] [place], [place] [id number] Piotr Marilee PT Coag (PPP) [Time] PLEASE NOTE: NORMAL RANGE CHANGE 12-01-2013 DUE TO REAGENT LOT CHANGE Normal [facility] Comment on above: Performed By: #### P T, PTT #### [facility] [address] [place], [place] [phone] Piotr Marilee PTTon 05-22-2019 aPTT Coag (Bld) [Time] PLEASE NOTE: NORMAL RANGE CHANGE 02-07-2015 DUE TO REAGENT LOT CHANGE Normal [facility] Comment on above: Performed By: #### P T, PTT #### [facility] [address] [place] [address] Piotr Marilee aPTT Coag (Bld) [Time] 23.6 s Normal 22.3-36.2 [facility] Comment on above: Performed By: #### P T, PTT #### [facility] [address] [place] [address] Piotr Marilee TROPONIN - Ion 05-22-2019 Troponin I.cardiac [Mass/Vol] ng/mL Normal <=0.034 [facility] Comment on above: Performed By: #### C MP, TROP, TSH #### [facility] [address] [place] [address] Piotr Marilee Troponin I.cardiac [Mass/Vol] SEE BELOW Normal [facility] Comment on above: Result Comment: <0.0 34 ng/ml NEGATIVE 0.034-0.119 INDETERMINATE 0.120 AMI CUT OFF Performed By: #### C MP, TROP, TSH #### [facility] [address] [place], [place] [address] Piotr Hunt TSHon 05-22-2019 TSH Qn 3.019 uIU/mL Normal 0.470-4.[address] [facility] Comment on above: Performed By: #### C MP, TROP, TSH ####[facility] [address] TSH Qn SEE BELOW Normal [facility] Comment on above: Result Comment: <0.3 4 UIU/ml HYPERTHYROID 0.34-5.60 UIU/ml EUTHYROID >5.60 UIU/ml HYPOTHYROID Performed By: #### C MP, TROP, TSH ####[facility] [address] XR CHEST 2 Von 05-22-2019 XR CHEST 2 V EXAM: XR CHEST 2 V HISTORY: COUGH COMPARISON: None. TECHNIQUE: 2 views of the chest are submitted for review. FINDINGS: The heart size is normal. Lungs are clear. No focal consolidation, pneumothorax or pleural effusion is seen. The osseous structures appear unremarkable. IMPRESSION: No radiographic evidence for acute cardiopulmonary disease. Normal [facility] CONSULTATIONon 03-28-2019 CONSULTATION CONSULTATION PAIN MANAGEMENT Consultation [...] would like to proceed with Motrin 800 [id number] as this is more helpful than the [...] the office today. 3. We will add Vineland 5/325 mg 1 p.o. b.i.d. p.r.n. pain. She is currently not on a opioid medication at this time. She last utilized tramadol in the past at a previous pain clinic and stated she had gastrointestinal issues as in nausea after taking the tramadol. The patient has been advised of the risks and benefits of the Vineland medication. OARRS report is reviewed and no [...] her pain. Dictated by Yris Goins APRN [facility] Signed and Approved by: YRIS GOINS 04/04/2019 17:00:00 [facility] System CONSULTATIONon 12-20-2018 CONSULTATION CONSULTATION PAIN MANAGEMENT Consultation [...] upon her pain. The patient has failed lnrr-jgc-ccheabf antiinflammatories as well as Tylenol in regards [...] progress check. Dictated by Yris Goins APRN [facility] Signed and Approved by: YRIS GOINS 12/27/2018 15:18:00 [facility] CONSULTATION PAIN MANAGEMENT Consultation Date: [...] pain are sitting, baclofen 10 mg, and tzsb-beg-iomahan medication Tylenol and Motrin. On August 31, [...] her pain. Dictated by Yris Goins APRN [facility] Signed and Approved by: YRIS GOINS 09/20/2018 13:40:00 Normal [facility] CONSULTATIONon 08-17-2018 CONSULTATION CONSULTATION PAIN MANAGEMENT Consultation [...] and would like to proceed. cc:Dr. David [facility] Signed and Approved by: DR SELINA WADDELL 08/24/2018 08:28:00 Normal [facility] MG MAMM SCREEN LUIS W CADon 0 07-29-2018 MG MAMM SCREEN LUIS W CAD Patient: SULY HUFFMAN Exam Date: 07/29/2018 : 1960 Gender:F Ordering : GARFIELD ROJO MAGDALENO Admission #: [id number] Family : Order #: [id number] CLICK HERE TO VIEW EXAM RADIOLOGY REPORT [...] lung cancer at age 76. LOCATION: [facility] BREAST COMPOSITION: Heterogeneously dense, which may obscure [...] MD on 07/29/2018 at 16:46 Normal [facility] Vital Signs Date Time Vital Sign Value Performing Clinician Facility 05-27-2019 15:45-0400 Body Temperature 97.5 [degF] [place], [place] 05-27-2019 15:45-0400 BP Diastolic 70 mm[Hg] [place], [place] 05-27-2019 15:45-0400 BP Systolic 155 mm[Hg] [place] 05-27-2019 15:45-0400 Pulse (Heart Rate) 58 /min [place] 05-27-2019 15:45-0400 Pulse Oximetry 99 % [place] 05-27-2019 15:45-0400 Respiratory Rate 16 /min [place] 05-26-2019 14:09-0400 Body mass index (BMI) [Ratio] 9 AU/mL [facility] Comment on above: Result Comment: GBM [...] diagnosis. Performed By: #### D AU #### [employer] [address] [place] [address] Deboner: Zaki Humphries MD 05-22-2019 21:05-0400 BMI (Body Mass Index) 31.93 kg/m2 Yogesh Lazaro [facility] [place], [place] 05-22-2019 21:05-0400 Body weight 95.25 kg Yogesh Rothman [facility] , [place] 05-22-2019 21:050400 Height 172.7 cm Yogesh Rothman [facility] , [place] Encounters Encounter Date Encounter Type Care Provider Facility Start: 05-04-2023 End: 05-04-2023 ambulatory MATTHEW CINTHIA Not Available Start: 03-26-2023 End: 03-26-2023 ambulatory MATTHEW CINTHIA Not Available Start: 02-18-2023 End: 02-19-2023 ambulatory WHIT GODINEZ Not Available Start: 02-18-2021 End: 02-19-2021 ambulatory Hussain Kay II Facility:[facility] Start: 06-10-2019 End: 06-13-2019 Patient encounter procedure [facility] Start: 06-10-2019 End: 06-12-2019 [facility] Radiology Comment on above: Subarachnoid hemorrh age (HCC) Vasculitis (HCC) Start: 05-22-2019 End: 05-27-2019 Evaluation and management of inpatient OSAMA O CARLOS [facility] Start: 05-22-2019 End: 05-27-2019 Evaluation and management of inpatient Yogesh Rothman Work Phone: [address] Neuro Comment on above: TIA (transient ische saroj attack) (Primary Dx); Subarachnoid hemorrhage (HCC); Subdural hematoma (HCC); SAH (subarachnoid hemorrhage) (HCC) Start: 05-22-2019 End: 05-22-2019 Patient encounter procedure ELADIA DAVID Facility:[facility] Start: 05-17-2019 Patient encounter procedure SELINA WADDELL Facility:[facility] Start: 03-28-2019 End: 03-29-2019 Patient encounter procedure SELINA S WADDELL Facility:[facility] Start: 12-20-2018 End: 12-21-2018 Patient encounter procedure SELINA S WADDELL Facility:[facility] Start: 11-30-2018 End: 11-30-2018 Patient [...] Start: 05-26-2019 Blood count complete automated Cecilio Gage Work Phone: Start: 05-26-2019 INTAKE AND OUTPUT [...] strip Cecilio Sherman Work Phone: Start: 05-25-2019 Smr prim src gram/gi emsa stain bct fungi/cell Radha [place] Work Phone: Start: 05-25-2019 Cell count misc body fluids w/differential count Radha [place] Work Phone: Start: 05-25-2019 CSF DIFFERENTIAL Radha [place] Work Phone: Start: 05-25-2019 Glucose body fluid o ther than blood Radha [place] Work Phone: Start: 05-25-2019 Protein total xcpt refractometry ot src Radha [place] Work Phone: Start: 05-25-2019 IR LUMBAR PUNCTURE F OR DIAGNOSIS Radha [place] Work Phone: Start: 05-25-2019 Gluc bld gluc [...] 05-24-2019 Clotting inhibitors protein c activity Radha [place] Work Phone: Start: 05-24-2019 Clotting inhibitors protein s free Radha [place] Work Phone: Start: 05-24-2019 Glucose blood reagent [...] OUTPUT OSAMA ZAIDAT Start: 05-24-2019 NEURO CHECKS OSAMA RYAN AT Start: 05-24-2019 PULSE OXIMETRY, CONTINUOUS OSAMA ZAIDAT Start: 05-24-2019 FACTOR V LEIDEN MUTATION OSAMA ZAIDAT Start: 05-24-2019 Radiologic exam ches t single view Radha [place] Work Phone: Start: 05-24-2019 Acute hepatitis panel [...] Work Phone: Start: 05-24-2019 C-reactive protein Jack Lion Work Phone: Start: 05-24-2019 Complement antigen e ach component Courtney Lion Work Phone: Start: 05-24-2019 Flow cytometry cell surf marker techl only 1st Courtney Lion Work Phone: Start: 05-24-2019 Fluorescent nonnfct agt antb screen ea antibody Courtney Lion Work Phone: Start: 05-24-2019 GLOMERULAR BASEMENT MEMBRANE (GBM) ANTIBODY IGG Courtney Lion Work Phone: Start: 05-24-2019 HIV REFLEX [facility] Work Phone: Start: 05-24-2019 Rheumatoid factor quantitative Courtney Lion Work Phone: Start: 05-24-2019 Sedimentation rate r bc automated Courtney Lion Work Phone: Start: 05-24-2019 INITIATE OXYGEN THER [...] Start: 05-23-2019 Assay of troponin quantitative Sandra Farmer Ruddy Work Phone: Start: 05-23-2019 Prothrombin time [...] ecg w/le ast 12 lds i&r only Sandrabrittney Lock Work Phone: Start: 05-23-2019 EKG REPORT [...] AL VTE PROPHYLAXIS OSAMA ZAIDAT Start: 05-22-2019 GLASS ROBOT OPERATOR EVAL AND TREAT OSAM A ZAIDAT Start: [...] Start: 05-22-2019 VITAL SIGNS - NOTIFY OSATRINI ZAIDAT Start: 05-22-2019 Ct angiography head w/contrast/noncontrast OSAMA [...] - Td) DTaP/Tdap/Td vaccine (2 - Td) [place], [place] Start: 05-22-2022 Diabetes screen Diabetes screen [place], [place] Start: 05-26-2020 Creatinine monitoring Creatinine mon [place]oring [place], [place] Start: 05-26-2020 Potassium monitoring Potassium monit [place], [place] Start: 05-24-2020 Creatinine monitoring Creatinine mon [place]oring [place] Start: 05-24-2020 Potassium monitoring Potassium monit [place], [place] Start: 05-22-2020 Lipid screen Lipid screen [place], [place] Start: 08-23-2019 End: 08-23-2019 Office Visit 08/23/2019 Office Visit Neurology Jose Michael MD [address] [facility] [address] [place] [address] [phone] [facility] Neuroscience Start: 07-05-2019 End: 07-05-2019 Office Visit 07/05/2019 Office Visit Neurology Ashleigh Mcmahon, [employer] [facility] [employer] [address] [id number] [facility] Neurology Specialist Start: 06-17-2019 End: 06-17-2019 Office Visit 06/17/2019 Office Visit Neurology Gayathri Maradiaga MD [address] [facility] [address] [place] [address] [phone] [facility] Neuroscience Start: 06-10-2019 End: 05-26-2020 CTA HEAD W CONTRAST CTA HEAD W CONTRAST Imaging Routine Subarachnoid hemorrhage (HCC) Expected: 06/10/2019, Expires: 05/26/2020 [place], [place] Comment on above: Expected: 06/10/2019 , Expires: 05/26/2020 Start: 05-30-2019 Patient encounter procedure Ambulatory Facility: Start: 11-14-2018 Influenza vaccination Flu vaccine (# 1) [place], [place] Start: 2012 Breast cancer screen Breast cancer s creen [place], [place] Start: 2012 Colon cancer screen colonoscopy Colon cancer screen colonoscopy [place], [place] Start: 2012 Shingles Vaccine (1 of 2) Shingles Vaccine (1 of 2) [place], [place] Start: 12-14-1983 Cervical cancer screen Cervical canc er screen [place], [place] Start: 1977 HIV screen HIV screen [place], [place] End: 05-29-2019 Basic metabolic 2000 panel Basic metabolic panel Lab Routine Tomorrow AM for 7 Occurrences starting 05/23/2019 until 05/29/2019, 5 completed [place] Comment on above: Tomorrow AM for 7 Oc currences starting 05/23/2019 until 05/29/2019, 5 completed End: 05-29-2019 CBC CBC Lab Routine Tomorrow AM for 7 Occurrences starting 05/23/2019 until 05/29/2019, 5 completed [facility], [place] Comment on above: Tomorrow AM for 7 Oc currences starting 05/23/2019 until 05/29/2019, 5 completed End: 05-24-2019 CRYOGLOBULIN CRYOGLOBULIN Lab Routine One Time for 1 Occurrences starting 05/24/2019 until 05/24/2019 [place] Comment on above: One Time for 1 Occur rences starting 05/24/2019 until 05/24/2019 CRYOGLOBULIN CRYOGLOBULIN Lab Routine 05/24/2019 11:29 AM EDT [facility], [place] End: 05-24-2019 FACTOR 5 LEIDEN FACTOR 5 LEIDEN Lab Routine One Time for 1 Occurrences starting 05/24/2019 until 05/24/2019 [place] Comment on above: One Time for 1 Occur rences starting 05/24/2019 until 05/24/2019 End: 05-25-2019 Factor V Leiden Mutation Factor V Leiden Mutation Lab Routine Once for 1 Occurrences starting 05/25/2019 until 05/25/2019 [place] Comment on above: Once for 1 Occurrenc es starting 05/25/2019 until 05/25/2019 Initiate Oxygen Ther apy Protocol [facility], [place] Comment on above: Daily until disconti nued starting 05/22/2019 Daily until disconti nued starting 05/24/2019 IR ANGIOGRAM CAROTID C EREBRAL BILATERAL IR ANGIOGRAM CAROTID C EREBRAL BILATERAL Imaging Routine 05/24/2019 10:21 AM EDT [facility], [place] End: 06-05-2019 Magnesium [Mass/Vol] Magnesium Lab Routine Daily for 14 Occurrences starting 05/23/2019 until 06/05/2019, 5 completed [facility], [place] Comment on above: Daily for 14 Occurre nces starting 05/23/2019 until 06/05/2019, 5 completed End: 05-25-2019 Miscellaneous lab test #1 Miscellaneous lab test #1 Lab Add-On One Time for 1 Occurrences starting 05/25/2019 until 05/25/2019 [place] Comment on above: One Time for 1 Occur rences starting 05/25/2019 until 05/25/2019 POCT glucose [place] Comment on above: 4X Daily (AC & HS) u ntil discontinued starting 05/24/2019 As Needed until disc ontinued starting 05/24/2019 Pulse Oximetry Spot Check Pulse Oximetry Spot Check Respiratory Care Routine As Needed until discontinued starting 05/24/2019 [place] Comment on above: As Needed until disc ontinued starting 05/24/2019 Pulse oximetry, continuous Pulse oximetry, continuous Respiratory Care Routine Every 4hr until discontinued starting 05/23/2019 [place] Comment on above: Every 4hr until disc ontinued starting 05/23/2019 Payers Date Payer Category Payer Self-pay [id number] 2014 Unknown NWO PLUMBERS PIP EFITTERS RET NWO MUSEUM EXHIBIT DESIGNER FOOD DEMONSTRATOR FRONTPATH xxxxxxxxxx 2014-Present [phone] [address] [place] [address] xxxxxxxxxx [id number] 1960 Unknown [id number] 2.16.840.1.781904.3.579.2.593 1960 Unknown [id number] 2.16.840.1.311889.3.579.2.593 1960 Unknown [id number] 2.16.840.1.650932.3.579.2.593 1960 Unknown [id number] 2.16.840.1.352022.3.579.2.593 1960 Unknown [id number] 2.16.840.1.210990.3.579.2.593 1960 Unknown [id number] 2.16.840.1.921355.3.579.2.593 1960 Unknown [id number] 2.16.840.1.418918.3.579.2.593 1960 Unknown [id number] 2.16.840.1.418862.3.579.2.593 1960 Unknown [id number] 2.16.840.1.988821.3.579.2.593 1960 Unknown [id number] 2.16.840.1.196931.3.579.2.593 1960 Unknown [id number] 2.16.840.1.320552.3.579.2.593 1960 Unknown [id number] 2.16.840.1.176788.3.579.2.176 1960 Unknown [id number] 2.16.840.1.645722.3.579.2.176 1960 Unknown [id number] 2.16.840.1.019733.3.579.2.176 1960 Unknown [id number] 2.16.840.1.935363.3.579.2.175 1960 Unknown [id number] 2.16.840.1.887571.3.579.2.125 9 1960 Unknown [id number] 2.16.840.1.462317.3.579.2.125 9 1960 Unknown [id number] 2.16.840.1.373739.3.579.2.125 9 1959 Unknown [id number] Unknown [id number] 2.16.840.1.807514.3.579.2.531 Social History Date Type Detail Facility Start: 05-22-2019 Tobacco smoking stat [facility] Never smoker [place], [place] Start: 05-22-2019 Alcohol intake Current drinke r [facility]finding[facility] Start: 05-22-2019 Alcohol Comment Socially [facility] Sex Assigned At Not on file [facility] Start: 1960 Sex Assigned At Female F [facility] Discharge summary note 11-17-2020 Note Date & Type Note Facility 11-17-2020 Note [facility] Patient: SULY HUFFMAN [address] [place] [address] MR#: [id number] DISCHARGE SUMMARY : 64 Service Date: 11/17/20 [...] Ortho 11/21/20 For Providers: Anil Singer MD [address] [place] [address] CALL OFFICE ON THURSDAY FOR APPOINTMENT TIME ON THURSDAY FOR DRAIN REMOVAL Condition Improved, Stable, Good Disposition Home Electronically Signed eSign Date and Time Hina Richardsonn [facility] Evaluation note Note Date & Type Note Facility Evaluation note No assessment information availa [facility] Work Phone: Summary Purpose Family History No Family History Records Found Relationship Condition Age at Onset Recorded Date/T lily father Heart disease Unknown Malignant neoplasm Unknown Not Specified Hypertension Unknown sister Malignant neoplasm of thyroid gland Unkno wn Advance Directives No Advanced Directives Records FoundDocuments on File Type Date Recorded Patient Stock Transfer Clerk Expl anation Advance Directives and Living Will Power of Rodeo Performer Latest Code Status on File Code Status Date Activated Date Inactivated Comments Full Code 05/24/2019 12:07 PM Full Code 05/22/2019 8:41 PM 05/24/2019 12:06 PM Documents on File Type Date Recorded Patient Stock Transfer Clerk Expl anation Advance Directives and Living Will Power of Rodeo Performer Latest Code Status on File Code Status [...] CONTRAST Courtney Lion APRN - CNP [address] [address] Status Reason Specialty Diagnoses / Procedures Referre d By Contact Referred To Contact Closed Radiology Diagnoses Subarachnoid hemorrhage (HCC) Procedures CTA HEAD W CONTRAST HC CTA master printerCourtney Lion APRN - CNP [address] [address] Discharge Instructions * Discharge Instr - Activity* [...] Independent Dressing Independent Toileting Independent Feeding Assisted Pulmonary Function Technologist Independent Med Delivery crushed Wound Care Documentation [...] Respiratory Treatments: none Oxygen Therapy: {Therapy; copd oxygen:01105} Ventilator: { CC Vent List:876254064} Rehab Therapies: Speech/Language Therapy Weight Bearing Status/Restrictions: No weight bearing restirctions Other Medical Equipment (for information only, NOT a DME order): {EQUIPMENT:820961964} Other Treatments: Patient's personal belongings (please select all that are sent with patient): None RN SIGNATURE: CASE MANAGEMENT/SOCIAL WORK SECTION Inpatient Status Date: Readmission Risk Assessment Score: Readmission Risk Risk of Unplanned Readmission: 11 Discharging to Facility/ Agency Name: Address: Phone: Fax: Dialysis Facility (if applicable) Name: Address: Dialysis Schedule: Phone: Fax: Gis Professor/Boomswing Operator signature: {Esignature:955775942} PHYSICIAN SECTION Prognosis: {Prognosis:5203381415} Condition at Discharge: { Patient Condition:088620698} Rehab Potential (if transferring to Rehab): {Prognosis:8763198550} Recommended Labs or Other Treatments After Discharge: Physician Certification: I certify the above information and transfer of Suly Huffman is necessary for the continuing treatment of the diagnosis listed and that she requires {Admit to Appropriate Level of Care:72125} for {GREATER/LESS:223145590} 30 days. Update Admission H&P: {CHP DME Changes in HandP:659058020} PHYSICIAN SIGNATURE: {Esignature:704515442} * Additional Instructions* Courtney Lion, [facility] - 05/25/2019 Take your medications as prescribed. [...] be sent through Care Everywhere. * Seizure (Iranian) * Subarachnoid Hemorrhage: General Info (Iranian) documented in this encounter History of Present Illness * Kristin Rankin, PT - 05/26/2019 10:28 AM EDT Physical Therapy Facility/Department: [address] NEURO Daily Treatment Note NAME: Suly [...] 13 KRISTIN RANKIN PT * Sandra Lock, [employer] [facility] - 05/26/2019 7:36 AM EDT Daily Progress [...] depression who presents as a transfer from [facility] for subarachnoid hemorrhage with 3 mm right subdural hematoma. She states thatsince Thursday she has had intermittent numbness and tingling of her left upper and left lower extremity as well as she what she feels like is loss of control of her left upper extremity. She states that these episodes last approximately 5 to 10 minutes, currently denies any complaints at this time.She adamantly denies any falls, trauma. She denies [...] was started on it 20 years ago forepisodic depression and just never stopped taking it. Silva&Andrews: 0, Modified Pollard: 1 Hospital Course: 05/22: Multiple episodes of left sided numbness throughout the day. Loaded with 2g Keppra followed us396ug BID. LTME started. 05/23: Two episodes of [...] mostly in the right anterior circulation, distal DIRECTOR INDUSTRIAL NURSING branches with moderate focal segmental vasospasm. Findings [...] factor in 2015 and was evaluated at [facility], but specialist at that time did [...] 97.9 F (36.6 C) Oral 61 17 05/25/19 1956 (!) 153/72 97.6 F (36.4 C) Oral [...] mostly in the right anterior circulation, distal DIRECTOR INDUSTRIAL NURSING branches with moderate focal segmental vasospasm - [...] 37.5-25mg QD - Troponin 7, EKG sinus gage - Echocardiogram: EF 55%, negative bubble - [...] please contact Neuro Critical Care. Sandra Lock, [facility] Neuro Critical Care Pager [phone] 05/26/2019 7:36 AM Associated attestation - Arleth Wilder MD - 05/27/2019 8:50 AM EDT Neuro critical care: CSF studies reviewed and WBCs elevated at 92 and RBC 10,000. Proteins elevated in 90s. Of note, patient reported today visiting [facility] 5 year s ago for elevated RA factor in 120s. No followup , clinical issues or diagnosis since. RA factor elevated again in 120s. Rheumatology consulted to evaluate for suspicion/ differential of [employer] vasculitis. CSF sent to [facility] for autoimmune panel testing Continue keppra, verapamil and steroids in the interim. Marleny Wilder MD * Renetta Eng - 05/25/2019 5:47 PM EDT Echo completed at the bedside * Caridad Skinner RN - 05/25/2019 11:58 AM EDT LUMBAR PUNCTURE DR. SELINA Moralescy RT PATIENT TO IR, IDENTIFIED, ALLERGIES CONFIRMED. MONITORS ON. PRONE. STABLE. TIME OUT COMPLETE. PREP TO LUMBAR REGION PER 8 MLS OF BLOODY PINKISH COLORED CSF OBTAINED. BANDAGE TO LUMBAR REGION PUNCTURE SITE. NO PROBLEMS NOTED. REPORT CALLED. PATIENT STABLE, OFF MONITOR, BACK TO STRETCHER AND READY FOR TRANSPORT. SAMPLES OBTAINED SENT TO LAB PER OUTPATIENT ADMITTING CLERK RN. * Nancy Pérez OPERATION SUPERVISOR - 05/25/2019 11:38 AM EDT Occupational Therapy Facility/Department: [address] Daily Treatment Note NAME: Suly Huffman [...] of Care Patient Education: purpose of OT; FMC activity Barriers to Learning: pt sabine Pak [...] objects from various heights and surfaces, pt sabine Pak carry over. FMC activity implemented utilizing L digits for flexion, oppositon, grasp, pincer grasp and tripod grasp in order to obtain small objects, 3 LOG noted with 5th and 4th digit, decreased LOG noted further into session. AGUILAR educated pt on cont use of FMC activity in order to improve ROM and director of occupational therapy for ADL tasks, pt sandrao G understanding. Plan Plan Times per week: 3-4x [...] 23 Timed Code Treatment Minutes: 23 Minutes LAUREN Vann/Mikaela * Kristin Rankin, PT - 05/25/2019 11:37 [...] to palliative care. No further needs. KRISTIN MASSIEL, PT * Courtney Lion, [employer] - 05/25/2019 8:05 AM EDT Daily Progress Note Neuro Critical Care Patient Name: Suly Huffman Patient : 1960 Room/Bed: [facility]0523- Code Status: FULL Allergies: Allergies Allergen Reactions Augmentin [Amoxicillin-Pot Clavulanate] Diarrhea CHIEF COMPLAINT: Intermittent left sided paresthesias and weakness INTERVAL HISTORY Initial Presentation (Admitted 05/22/19): The patient is a 58 yo female with history of HTN, HLD, and depression who presents as a transfer from [facility] for subarachnoid hemorrhage with 3 mm right [...] the day. Loaded with 2g Keppra followed dl460ix BID. LTME started. 05/23: Two episodes of [...] mostly in the right anterior circulation, distal DIRECTOR INDUSTRIAL NURSING branches with moderate focal segmental vasospasm. Findings [...] mostly in the right anterior circulation, distal DIRECTOR INDUSTRIAL NURSING branches with moderate focal segmental vasospasm - [...] 37.5-25mg QD - Troponin 7, EKG sinus gage - F/U Echocardiogram - Lipid panel; LDL [...] APRN - NIKITA Neuro Critical Care Pager [phone] 05/25/2019 8:05 AM Associated attestation - Arleth [...] pending M Ismael Wilder MD * Karuna Kapadia RN - 05/24/2019 3:30 PM EDT 10cc air [...] Testing [x] Other--angio--then strict BR, ck back 3/11 [] PT being discontinued at this time. [...] SYSTEM PROVIDED HISTORY: SAH TECHNOLOGIST PROVIDED HISTORY: LUCReason for Exam: SAH Acuity: Acute Type of [...] Vl Transcranial Doppler Complete Result Date: 05/23/2019 [facility] Vascular Transcranial Procedure Patient Name NATHANAEL Date of Study 05/23/2019 SULY Farmer Date of 1960 Gender Female Age 58 year(s) Race Room Number 0523 Corporate ID [id number] # Patient Acct [id number] # MR # [id number] Roller Coaster Engineer Carole Hooks RVT, DEV Interpreting Gunnar Morgan Physician Referring Referring Physician SANDRA LOCK [facility] Nurse Practitioner Additional Comments CLASSIFICATION OF VASOSPASM [...] 85.1 Mid AMAIRANI: 83.9 Mid AMAIRANI: 105 DIRECTOR INDUSTRIAL NURSING: 32.3 DIRECTOR INDUSTRIAL NURSING: 22.7 T ICA: 40.4 T ICA: 37.7 [...] mostly in the right anterior circulation, distal DIRECTOR INDUSTRIAL NURSING branches with moderate focal segmental vasospasm - [...] from 40 to 10 daily * Courtney Lion APRN - NIKITA - 05/24/2019 7:41 AM EDT Daily Progress Note Neuro Critical Care Patient Name: Suly Huffman Patient : 1960 Room/Bed: 0523/0523-01 Code Status: FULL Allergies: Allergies Allergen Reactions Augmentin [Amoxicillin-Pot Clavulanate] Diarrhea CHIEF COMPLAINT: Intermittent left sided paresthesias and weakness INTERVAL HISTORY Initial Presentation (Admitted 05/22/19): The patient is a 58 yo female with history of HTN, HLD, and depression who presents as a transfer from [facility] for subarachnoid hemorrhage with 3 mm right [...] the day. Loaded with 2g Keppra followed [id number] BID. LTME started. Last 24h: Two episodes [...] mostly in the right anterior circulation, distal DIRECTOR INDUSTRIAL NURSING branches with moderate focal segmental vasospasm. Findings [...] 2203 (!) 154/60 57 17 90 % 05/23/192102 139/64 57 15 94 % 05/23/192002 116/72 [...] 24 hour Intake 1997 ml Output Net 1997 ml IMAGING: Cta Head Neck W Contrast [...] mostly in the right anterior circulation, distal DIRECTOR INDUSTRIAL NURSING branches with moderate focal segmental vasospasm - [...] pressure trend - Troponin 7, EKG sinus gage - F/U Echocardiogram - Lipid panel; LDL [...] APRN - NIKITA Neuro Critical Care Pager [phone] 05/24/2019 7:42 AM Associated attestation - Arleth [...] 05/23/2019 11:34 AM EDT Physical Therapy Facility/Department: [address] Initial Assessment NAME: Suly Huffman : [...] Ambulation Assistance: Independent Transfer Assistance: Independent Active Correction Lieutenant: Yes 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 [...] Ambulation Assistance: Independent Transfer Assistance: Independent Active Correction Lieutenant: Yes 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 [...] of Movement Other Comment: Pt demo'd poor [id number] test after episode this date, pt performed [...] Equipment Evaluation, Education, & procurement, Balance Training [facility] Inpatient Daily Activity Raw Score: 20 (05/23/191114) [facility] Inpatient ADL T-Scale Score : 42.03 (05/23/191114) ADL Inpatient CMS 0-100% Score: 38.32 (05/23/191114) ADL Inpatient [facility] G-Code Modifier : CJ (05/23/191114) Goals Short [...] 9:33 AM EDT Speech Language Pathology Facility/Department: [address] Initial Speech/Language/Cognitive Assessment NAME: Suly Huffman : 1960 ADMISSION DATE: 05/22/2019 ADMITTING DIAGNOSIS: has Subarachnoid hemorrhage (HCC) on their problem list. Date of Eval: 05/23/2019 Evaluating Therapist: Diamond Barnes Primary Complaint: The patient is a 58 y.o. female presented as a transfer from [facility] after being found tohave subarachnoid hemorrhage and [...] Verbal and written education provided. Recommendations: Requires GLASS ROBOT OPERATOR Intervention: No Plan: Goals: Patient/family involved in [...] 09 Minutes 11 Completed by: Diamond Barnes, Wall Covering Installer Clinician Cosigned By: Ashlee Grimm M.S.CCC/GLASS ROBOT OPERATOR 05/23/2019 9:34 AM * Amita Navarro RCP [...] able. AMITA NAVARRO 8:35 AM * Sandra Lock APRN - NIKITA - 05/23/2019 8:26 AM EDT Daily Progress Note Neuro Critical Care Patient Name: Suly Huffman Patient : 1960 Room/Bed: 0523/0523-01 Code Status: Full Allergies: Allergies Allergen Reactions Augmentin [Amoxicillin-Pot Clavulanate] Diarrhea CHIEF COMPLAINT: Left sided numbness INTERVAL HISTORY Initial Presentation (Admitted 05/22/19): The patient is a 58 yo female with history of HTN, HLD, and depression who presents as a transfer from [facility] for subarachnoid hemorrhage with 3 mm right [...] INFUSIONS: sodium chloride 100 mL/hr at 05/22/19 9293 PRN MEDICATIONS: benzonatate, sodium chloride flush, sodium [...] output data in the 24 hours ending 05/23/19 08 IMAGING: VL TRANSCRANIAL DOPPLER COMPLETE Final Result [...] please contact Neuro Critical Care. Sandra Lock, [facility] Neuro Critical Care Pager [phone] 05/23/2019 8:26 AM Associated attestation - Arleth [...] Attending Note I have reviewed the above [facility] resident progress note and I either performed [...] has loss of fine motor control. Weak director of occupational therapy, and able to weakly push/pull against resistance. Episode lasted less than 5 min * Cuong Barbosa, DO - 05/22/2019 7:01 PM EDT Trauma Tertiary [...] content) DATE CREATED AUTHOR 05/24/2019 [facility] DATE CREATED AUTHOR AUTHOR'S ORGANIZ ATION 06/12/2019 [facility] DATE CREATED AUTHOR AUTHOR'S ORGANIZ ATION 06/14/[address] [facility] DATE CREATED AUTHOR AUTHOR'S ORGANIZ ATION 04/29/2021 [facility] DATE CREATED AUTHOR AUTHOR'S ORGANIZ ATION 09/11/2021 [facility] DATE CREATED AUTHOR AUTHOR'S ORGANIZ ATION 05/05/2023 [facility] EPIC DATE CREATED AUTHOR AUTHOR'S ORGANIZ ATION 06/02/2023 [facility] Reason for Visit (unrecogniz ed section and content) Reason Comments Headache Anterior headache Numbness Intermittent LUE and LLE numbness and tingling since Thursday, SAH on CT Status Reason Specialty Diagnoses / Procedures Referre d By Contact Referred To Contact Diagnoses Subarachnoid hemorrhage (HCC) Cecilio Sherman MD [address] [place] [address] [facility] Status Reason Specialty Diagnoses / Procedures Referre d By Contact Referred To Contact Closed Radiology Diagnoses Subarachnoid hemorrhage (HCC) Procedures CTA HEAD W CONTRAST HC CTA master printer, Courtney, [employer] [address] [facility] [address] [place] [address] Goals (unrecognized section and content) Goals may [...] BE BASED ON THE PRIMARY CLINICAL RECORDS. [facility] provides no warranty or guarantee of the accuracy or completeness of information in this document.
[2023-06-04] MEDS: LACTATED RINGER'S SOLUTION 1,000 ML 50 ML IV (11:56)
--- NOTE | 2023-06-04 13:31 | PM.ONB ---
Brief Operative Note Date of procedure: 06/04/23 Pre-op diagnosis: pmb, pelvic pain, uterine fiborid Post-op diagnosis: same as pre-op Procedure: NAME OF PROCEDURE: [ D&c hysteroscopy with myosure] findings-large intramural fibroid PROCEDURE: The patient was taken back to the Operating Room where she was prepped and draped in normal sterile fashion after being placed under general anesthesia without difficulty. She was also placed in the dorsal lithotomy position. A weighted speculum was placed in the patient?s vagina. The anterior lip of the cervix was identified and grasped with a single tooth tenaculum. The patient?s uterus was then sounded roughly to [? 8] cm. The patient was then gently dilated using Hegar dilators. The hysteroscope was passed through the patient?s cervix into the uterus. Both ostia were identified. fluffy appearing endometrium. No gross evidence of malignancy, no gross evidence of polyps or fibroids. The myosure apparatus was placed through the scope, The myosure was engaged and endometrial curretting were removed along with endometrial polyp, The hysteroscope was then removed from the uterus. The endometrial curettings were sent out to pathology. The single tooth tenaculum was then removed from the patient's anterior lip of the cervix where excellent hemostasis was noted. All instruments were removed from the patient?s vagina. The patient tolerated the procedure well. Sponge, lap and needle counts were correct times two. The patient was taken to the Recovery Room in stable condition.Room in stable condition. Anesthesia: MAC Surgeon: Bart Liz Estimated blood loss (mL): 5 Pathology: other (endometrial and endocervical currettings) Condition: stable Disposition: PACU Urinary Catheter Management Urinary Catheter Management Urethral: Cath placed during this visit: no
== END 2023-06-04 14:50 | disposition home or self-care (01) ==
PROVIDERS: PCP Family Medicine; Visit Provider Obstetrics & Gynecology
PROC: (CPT 952; principal; 2023-06-04 12:30)
DX: D25.0 Submucous leiomyoma of uterus (principal); R10.2 Pelvic and perineal pain; I10 Essential (primary) hypertension; N95.0 Postmenopausal bleeding; N93.9 Abnormal uterine and vaginal bleeding, unspecified; F41.8 Other specified anxiety disorders; E78.00 Pure hypercholesterolemia, unspecified; K21.9 Gastro-esophageal reflux disease without esophagitis; E66.9 Obesity, unspecified; Z68.30 Body mass index [BMI] 30.0-30.9, adult
CPT/HCPCS: 58558; 36415; 85025; 88305; 99999; J1094; J2704

== ENCOUNTER 2023-06-18 08:56 | Outpatient (OUT) | payer OTHER, SELFPAY ==
--- OUTSIDE RECORDS SUMMARY | 2023-06-18 09:10 | XMS_ITS | CCD ---
Author Organization [facility] Care Team Providers Care Therapy Director Name Role Phone WADDELL, SELINA S Admitting Unavailable WADDELL, SELINA S Attending Unavailable ELADIA DAVID Primary Care Unavailable ELADIA DAVID Admitting Unavailable ELADIA DAVID Attending Unavailable MISC, DOCTOR Primary Care Unavailable MISC, DOCTOR Consulting Unavailable GILDA REZA Consulting Unavailable WADDELL, SELINA S Admitting Unavailable WADDELL, SELINA S Attending Unavailable LEADIA DAVID Primary Care Unavailable WADDELL, SELINA S Consulting Unavailable WADDELL, SELINA S Admitting Unavailable WADDELL, SELINA S Attending Unavailable ELADIA DAVID Primary Care Unavailable WADDELL, SELINA S Consulting Unavailable WADDELL, SELINA S Admitting Unavailable WADDELL, SELINA S Attending Unavailable ELADIA DAVID Primary Care Unavailable CLINKER, YRIS Consulting Unavailable WADDELL, SELINA S Admitting Unavailable WADDELL, SELINA S Attending Unavailable FRANKIEELADIA SOLORZANO Primary Care Unavailable WADDELL, SELINA S [...] Unavailable Eladia Bran Primary Care Provi archana Bart Liz Attending Provider [phone] BART LIZ Attending Unavailable BART LIZ Attending Unavailable WHIT GODINEZ Attending Unavailable BART LIZ Attending Unavailable Bart Liz Attending Unavailable Bart Liz Admitting Unavailable Allergies Allergy Classification Reported Allergen(s) Allergy Type Date of Onset Reaction(s) Facility (2 sources) Amoxicillin / Clavulanate Drug Allergy 7 [facility] Repository (4 sources) Amoxicillin-Pot Clavulanate Propensity to adverse reactions to drug 0 [place], [place] (3 sources) Amoxicillin; Translations: [amoxicillin] Drug Allergy [facility] (3 sources) Clavulanate; Translations: [clavulanic acid] Drug Allergy [facility] Medications Current Medications Medication Drug Class(es) Dates Sig (Normalized) Sig (Original) acetaminophen 325 mg oral tablet (2 sources) Start: 05-22-2019 acetaminophen (TYLENOL) tablet 650 mg atorvastatin 10 mg oral tablet (8 sources) HMG-CoA Reductase Inhibitor Start: 01-11-2021 take [...] 2100 docusate sodium 50 mg / sennosides, fpc 8.6 mg oral tablet (1 source) Start: 05-24-2019 sennosides-docusate sodium (SENOKOT-S) 8.6-50 MG tablet 2 tablet 0.4 ml enoxaparin sodium 100 mg/ml prefilled syringe (1 source) Low Molecular Weight Heparin Start: 05-24-2019 enoxaparin (LOVENOX) injection 40 mg escitalopram 20 mg oral tablet (3 sources) Serotonin Reuptake Inhibitor Start: 01-11-2021 take [...] mg / triamterene 37.5 mg oral tablet (7 sources) Potassium-sparing Diuretic, Thiazide Diuretic Start: 01-11-2021 take 1 tablet by mouth once daily Triamterene-Girdwood chlorothiazid Active 1 TAB PO Daily January 11, 2021 12:00am Start: 05-25-2019 triamterene-hy drochlorothiazide (MAXZIDE-25) 37.5-25 MG per tablet 1 tablet take 1 tablet by mouth once daily triamterene-hydrochlorothiazide (MAXZIDE -25) 37.5-25 MG per tablet Take 1 tablet by mouth daily 0 Active ibuprofen 800 mg oral tablet (2 sources) Nonsteroidal Anti-inflammatory Drug Start: 01-11-2021 take 800 [...] provider. losartan potassium 50 mg oral tablet (7 sources) Angiotensin 2 Receptor Jay Start: 01-11-2021 [...] succinate 25 mg extended release oral tablet (3 sources) beta-Adrenergic Jay Start: 01-11-2021 take 50 [...] / HYDROcodone bitartrate 5 mg oral tablet (2 sources) Opioid Agonist Start: 01-11-2021 End: 01-14-2021 take 1 tablet by mouth every six hours Hydrocodone-Acetam inophen (Trent) 5-325 mg Tablet Discontinued 1 TAB PO Q6H January 11, 2021 12:00am January 14, 2021 1:53pm benzonatate 100 mg oral capsule (3 sources) Non-narcotic Antitussive Start: 01-11-2021 End: 01-14-2021 [...] 75 mL levETIRAcetam 500 mg oral tablet (7 sources) Start: 01-11-2021 End: 01-14-2021 take 500 [...] administering niMODipine. 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 DRUG THERAPY] Onset: 05-24-2019 Episodic Other circulatory disease (1 source) Vasculitis; Translations: [Vasculitis (HCC)] Chronic Other nervous system disorders (3 sources) Anesthesia of skin; Translations: [ANESTHESIA OF SKIN] Onset: 05-22-2019 Episodic Other nervous system disorders (1 source) Ataxia, unspecified; Translations: [ATAXIA UNSPECIFIED] Onset: 05-24-2019 Episodic Other screening for suspected conditions (not mental disorders or infectious disease) (6 sources) Encounter for screening mammogram for malignant neoplasm of breast; Translations: [Protein level - finding] Onset: 07-29-2018 01-14-2021 Episodic Paralysis (1 source) Monoplegia of upper [...] [SPONDYLOLISTHESI S LUMBAR REGION] Onset: 12-03-2018 Episodic Residual codes; unclassified (1 source) Family history of malignant neoplasm of trachea, bronchus and lung; Translations: [FAM HX MALVELVET NEOPLSM TRACH BRON LNG] Onset: 08-06-2018 Episodic Residual codes; unclassified (1 source) Family history of malignant neoplasm of other organs or systems; Translations: [FAM HX MALIG NEOPLASM OTH ORGN/SYS] Onset: 08-06-2018 Episodic Results Test Name Value Interpretation Reference Range Facility [facility] 06-04-2023 L Specimen: [id number] Received: 06/05/23 Status: SALVATORE King Num: [id number] Spec Type: Surgical Subm Dr: Bart Liz Tissues: A Endometrium - Curettings (EMC) Procedures: HE/2, Gross/Micro L4 Age/ Patient Sex Location Account Attending Physician Suly Huffman 62/F LABELL [id number] Bart Liz SPEC NUM: [id number] RECD: 06/05/23 STATUS: SALVATORE KING NUM: [id number] VICENTE: 06/04/[address]: Bart Liz ENTERED: 06/05/[address] [facility] [address]: Franco,Lab SPEC TYPE: Surgical DEPT: MARQUIS TOWNSEND ORDERED: HE/2, Gross/Micro L4 ORDERED: HE/2, Gross/Micro L4 Pathological Diagnosis Endometrium, Curettings:? Mostly mucoid material with scanty Fragments Of Cervical Mucosa, non-diagnostic. Clinical Information Uterine fibroid, pelvic pain Gross Description Received in formalin labeled with the patient's name, date of and endometrial curettings is a 2.7 x 2.4 x 0.4 cm aggregate of varner-ramsey mucus and tissue. Entirely submitted in one cassette labeled A1. CPT Codes 74204 ---- ---- Specimen: [id number] Received: 06/05/23 Status: SALVATORE King Num: [id number] Spec Type: Surgical Subm Dr: Bart Liz Tissues: A Endometrium - Curettings (EMC) Procedures: HE/2, Gross/Micro L4 ---- Patient: Suly Huffman [id number] (Continued) ---- Signed (signature on file) Shea Jovel MD 06/08/23 1447 [facility] SCREENING MAMMOGRAM W/BOSSMAN, BILATERAL*on 09-10-2021 SCREENING MAMMOGRAM [...] VERY IMPORTANT TO YOUR HEALTH. THE CURRENT [employer] GUIDELINES RECOMMENDS ANNUAL MAMMOGRAPHY BEGINNING AT AGE 42 THIS FACILITY USES A REMINDER SYSTEM TO ENSURE ALL PATIENTS RECEIVE REMINDER NOTIFICATIONS AT THE APPROPRIATE TIME BASED ON THE RECOMMENDATIONS OF THIS EXAM. Report reported and signed by Salo Pacheco on 09/10/2021 1532 Normal [facility] Discharge CCD Assessmenton 0 11-19-2020 Discharge CCD Assessment [facility] Patient: SULY HUFFMAN [address] [place], [place] [id number] MR#: [id number] DISCHARGE CCD ASSESSMENT : 64 Service Date: [...] Date and Time Hina Richardson Residen Normal [facility] Anesthesia Noteon 11-17-2020 Anesthesia Note [facility] Patient: SULY HUFFMAN [address] [id number] MR#: [id number] ANESTHESIA NOTE : Service Date: 11/17/20 1223 [...] Llamas 11/17/20 1224 Garland Harris MD Normal [facility] BASIC MET PANELon 11-17-2020 Anion gap [Moles/Vol] 12 mmol/L Normal 6-18 [facility] Comment on above: Performed By: #### L 500.94451, L500.46736 ####Test performed at: [address] [address] Calcium [Mass/Vol] 8.2 mg/dL Low 8.5-10.1 [facility] Comment on above: Performed By: #### L 500.38423, L500.74193 ####Test performed at: [address] [address] Chloride [Moles/Vol] 100 mmol/L Normal 98-107 [facility] Comment on above: Performed By: #### L 500.16834, L500.79704 ####Test performed at: [address] [address] CO2 [Moles/Vol] 27 mmol/L Normal 21-32 [facility] Comment on above: Performed By: #### L 500.40551, L500.89684 ####Test performed at: [address] [address] Creatinine [Mass/Vol] 0.909 mg/dL Normal 0.550-1.020 [facility] Comment on above: Performed By: #### L 500.38592, L500.88816 ####Test performed at: [address] [address] Glucose [Mass/Vol] 190 mg/dL High 70-99 [facility] Comment on above: Result Comment: Fast ing GLUCOSE reference range has been updated per (ADA) [employer] Diabetes Association's recommendation. 06/08/2018 Performed By: #### L 500.85871, L500.04147 ####Test performed at: [address] [address] OSM 289 mosm/kg Normal 270-300 [facility] Comment on above: Performed By: #### L 500.13247, L500.48297 ####Test performed at: [address] [address] Potassium [Moles/Vol] 3.2 mmol/L Critically low 3.5-5.1 [facility] Comment on above: Result Comment: Crit ical Result(s) Called at: 09:36:29 on 11/17/2020 by: Diana Fontaine and read back by: trinh pandey Performed By: #### L 500.35042, L500.67958 ####Test performed at: [address] [address] Sodium [Moles/Vol] 136 mmol/L Normal 136-145 [facility] Comment on above: Performed By: #### L 500.16450, L500.71570 ####Test performed at: [address] [address] Urea nitrogen [Mass/Vol] 17 mg/dL Normal 7-18 [facility] Comment on above: Performed By: #### L 500.56333, L500.70654 ####Test performed at: [address] [address] GFR ESTIMATEon 11-17-2020 IF AMER > 60 Normal > 60 [facility] Comment on above: Result Comment: eGFR (Estimated GFR) Units of measure:mL/min/1.73 meters sq. *CALCULATION REVISED 01/02/2015;IDMS-traceable MDRD equation eGFR is derived from the reexpressed MDRD Study equation using the following parameters: serum creatinine, age, gender and race. An eGFR<60 mL/min/1.73m2 for >3 months is consistent with chronic kidney disease. Refer to KDOQI guidelines for clinical interpretation. Performed By: #### L 500.25377, L500.05229 ####Test performed at: [address] [address] IF non-AFR AMER > 60 Normal > 60 [facility] Comment on above: Performed By: #### L 500.07963, L500.09135 ####Test performed at: [address] [address] HGB AND HCTon 11-17-2020 Hematocrit (Bld) [Volume fraction] 39.2 % Normal 36.0-48.0 [facility] Comment on above: Performed By: #### L 200.12235 ####Test performed at: [address] [address] Hemoglobin (Bld) [Mass/Vol] 13.4 g/dL Normal 12.0-15.0 [facility] Comment on above: Performed By: #### L 200.42906 ####Test performed at: [address] [address] Internal Med Progress Noteon 11-17-2020 Internal Med Progress Note [facility] Patient: SULY HUFFMAN [address] [place], [place] [id number] MR#: [id number] PROGRESS NOTE - Internal Medicine : 64 Service Date: 11/17/20 0556 Assessment/Plan-Policy Loan Calculator al Med Be sure to note changes Be sure to note changes Electronically Signed eSign Date and Time Hina Richardson Residen Normal [facility] Internal Med Progress Note [facility] Patient: SULY HUFFMAN [address] [place], [place] [id number] MR#: [id number] PROGRESS NOTE - Internal Medicine : 64 Service Date: 11/17/20 0554 Subjective Primary Resident: Miki Richardson After Hours Call: [phone] Red Team Summary of Stay Mr Huffman, [...] 4d Result Date Time Pulse Ox 95 11/17 0110 B/P 136/63 11/17 0110 O2 Delivery ROOM AIR 11/17 011 Temp 36.3 11/17 0110 Pulse 64 11/17 0110 Resp 20 11/17 0110 O2 Flow Rate 3.0 11/16 1930 Intake AND Output Verdana 4d 11/17 2300 11/16 2300 Intake Total 1480 480 Output Total 30 230 Balance 1450 250 Intake, IV 1000 Oral 480 480 utput, 30 30 rainage Output, Urine 0 200 Patient 95.45 kg eight Weight PREADMISSION TESTING WGT easurement ethod Assessment/Plan-Policy Loan Calculator al Med Problem List 1. S/P laminectomy [...] Agree with above documentation. The [resident's, PA's, ASSOCIATE PROFESSOR OF COMMUNICATION's] assessment and plan reflect my input. Discussed with documenting provider and patient. Plan is as outlined above. Electronically Signed eSign Date and Time Hina Richardson Massiel Res Hause-Wardega, Katarzyn a MD 11/17/20 1125 Normal [facility] OT Therapy Recommendationson 11-17-2020 OT Therapy Recommendations [facility] Patient: SULY HUFFMAN [address] [place], [place] [address] MR#: [id number] OT THERAPY RECOMMENDATIONS : 64 Service Date: 11/17/20 1037 Therapy Recommendations Therapy Recommendations Recommendations Occupational therapy eval complete. Continue acute OT as per POC. Recommend d/c home with family assist. See OT eval for details. Electronically Signed eSign Date and Time Brynn Suero OT Rich 11/17/20 1038 Tammi Ham OT Normal [facility] PT Therapy Recommendationson 11-17-2020 PT Therapy Recommendations [facility] Patient: SULY HUFFMAN [address] [id number] MR#: [id number] PT THERAPY RECOMMENDATIONS : 64 Service Date: 11/17/20 1123 Therapy Recommendations Therapy Recommendations Recommendations PT eval complete. No further acute PT needs. Recommend d/c home when medically cleared. Electronically Signed eSign Date and Time Bettie Sorensen PT 11/17/20 1123 Normal [facility] z OT Inpatient Evaluationon 11-17-2020 z OT Inpatient Evaluation [facility] Patient: SULY HUFFMAN [address] [place] [address] MR#: [id number] OT INPATIENT EVALUATION : 64 Inpatient OT HPI Date of Service 11/17/20 Time In: 915 Time Out: 938 Total Treatment Time (Mins) 23 Visit Reason LUMBAR STENOSIS Surgery Type/Date L4-L5 decompressive laminectomy 11/16/20 Referral Date 11/17/20 Tx Diagnosis: LUMBAGO Insurance Name [facility] Course Pt is a 59 y/o [...] ADL Equipment Elev. Toilet Seat w Arms, Principal Clerk, Shower Chair Bedroom Location 1st Floor Bathroom [...] Gait Trainin (more content not included)... Normal [facility] z PT Inpatient Discharge Not efraín 11-17-2020 z PT Inpatient Discharge Note [facility] Patient: SULY HUFFMAN [address] [id number] MR#: [id number] PT INPATIENT DISCHARGE NOTE : 64 Service [...] Time Bettie Sorensen PT 11/17/20 1436 Normal [facility] z PT Inpatient Evaluationon 11-17-2020 z PT Inpatient Evaluation [facility] Patient: SULY HUFFMAN [address] [address] MR#: [id number] PT INPATIENT EVALUATION : 64 Service Date: 11/17/20 1146 Inpatient PT HPI Date of Service 11/17/20 Time In: 0915 Time Out: 0940 Total Treatment Time (Mins) 25 Room Number 617 Visit Reason LUMBAR STENOSIS Surgery Type: Luis L4-5 decompressive lami Surgery Date: 11/16/20 Referral Date 11/16/20 Tx Diagnosis: LOW BACK PAIN Insurance Name [facility] Course 59 y.o female at [facility] for above sx d/t lumbar stenosis. [...] Time Bettie Sorensen PT 11/17/20 1444 Normal [facility] H & Bj 11-16-2020 H & P [facility] Patient: SULY HUFFMAN [address] [place] [address] MR#: [id number] HISTORY and PHYSICAL : Service Date: 11/16/201815 [...] Entered as Reported by BONIFACIO JOSHI on 05/10/21 0719 Last Action: Continued on 11/16/202033 by JEAN [...] results of Cranial Nerve Asmt for all pts. Neurological Alert, Oriented x 3, No [...] Non-tender Ext (more content not included)... Normal [facility] OPERATIVE REPORTon OPERATIVE REPORT This is a preliminar y report only. This report will be final only after practitioner review and authentication has occurred. NAME: SULY HUFFMAN MR#: [id number] SURGEON: Anil Singer MD DATE OF SURGERY: [...] L3-4 DICTATION ENDS HERE ANIL SINGER MD [facility]/[id number] E/S: Electronically Signed [facility] PT NAME: SULY HUFFMAN MR#: [id number] [address] [place] [address] ACCT: [id number] : 64 OPERATIVE REPORT Normal [facility] OPERATIVE REPORT NAME: SULY HUFFMAN MR#: [id number] SURGEON: Anil Singer MD DATE OF SURGERY: [...] paraspinal muscles were injected with RECKs. [facility], [facility] PT NAME: SULY HUFFMAN MR#: [id number] [address] [place] [address] ACCT: [id number] : 64 OPERATIVE REPORT subcutaneous tissues, and skin were closed in the usual manner. Dressings were applied. The patient was woken, taken to recovery room in excellent condition. There were no complications. ANIL SINGER MD JFS/MODL/[id number] E/S: Anil Singer MD 12/10/20 0937 Electronically Signed [facility] PT NAME: SULY HUFFMAN MR#: [id number] [address] [place], [place] [address] ACCT: [id number] : 64 OPERATIVE REPORT Normal [facility] Primary Residenton Primary Resident [facility] Pt Name: SULY HUFFMAN MR#: [id number] [address] [place] [address] ACCT: [id number] [address] [id number] : 64 Service Date: 11/16/202024 Primary Resident/Call Primary Resident: Miki Richardson After Hours Call: [phone] Red Team Electronically Signed eSign Date and Time Jean Claude Dalal [place] Resident 11/17/20 1151 Normal [facility] LUMBAR SPINE 2 OR 3 VIEWSon 11-15-2020 LUMBAR SPINE 2 OR 3 VIEWS STUDY: LUMBAR SPINE 2 OR 3 VIEWS; ; 11/16/2020 4:33 pm INDICATION: B/L L4-5 DECOMPRESSION LAMINECTOMY . COMPARISON: No imaging. ACCESSION NUMBER(S): [id number] ORDERING CLINICIAN: Anil Singer FINDINGS: Fluoroscopy time: 5 seconds. 2 intraoperative fluoroscopic still frame images of the lumbar spine were submitted. Images demonstrate localization at the L4-L5 interspace with probe/surgical component. IMPRESSION: Surgical localization at the L4-L5 interspace. Please see operative report regarding procedural details. Normal [facility] CORONAVIRUSon 11-13-2020 SARS-CoV-2 (COVID-19) RNA FERNY+probe Ql [...] and Drug Administration's Emergency Use Authorization. [facility] COVID-19 Direct Letter of Authorization, along with the authorized Fact Sheet for Healthcare Providers, the authorized Fact Sheet for Patients, and authorized labeling are available on the FDA website: https://www.fda.gov/Me dicalDevices/Safety/ EmergencySituations/uc k210907.htm COVID-19 Negative for COVID-19 (SARS-CoV-2 RNA) Normal [facility] Comment on above: Order Comment: CBN: YESCampus: MAINCOVID Testing: PRE-OP/PROCEDURE SCREENComment: GE at Spec VICENTE 59Report age at specimen VICENTE? YFirst test: UNKNOWNEmployed in Healthcare: NOSymptomatic as defined by CDC: NOHospitalized for COVID-19? NOICU: NOResident in a [facility] Care Setting: NOOrder Date: 11/13/20: Not Performed By: #### M 400.77455 ####Test performed at: [address] [address] COMP META PANELon 11-07-2020 Albumin [Mass/Vol] 3.9 g/dL Normal 3.4-5.0 [facility] Comment on above: Performed By: #### L 500.81274, L500.77370 #### Test performed at: [address] [address] ALK PHOS TOTAL 61 U/L Normal 45-117 [facility] Comment on above: Performed By: #### L 500.22899, L500.67682 #### Test performed at: [address] [address] ALT [Catalytic activity/Vol] 131 U/L High 13-61 [facility] Comment on above: Performed By: #### L 500.18381, L500.25259 #### Test performed at: [address] [address] AST [Catalytic activity/Vol] 126 U/L High 15-37 [facility] Comment on above: Performed By: #### L 500.29125, L500.78393 #### Test performed at: [address] [address] BILI TOTAL 0.4 mg/dL Normal 0.2-1.0 [facility] Comment on above: Performed By: #### L 500.84972, L500.12664 #### Test performed at: [address] [address] Calcium [Mass/Vol] 9.1 mg/dL Normal 8.5-10.1 [facility] Comment on above: Performed By: #### L 500.31638, L500.24977 #### Test performed at: [address] [address] Chloride [Moles/Vol] 102 mmol/L Normal 98-107 [facility] Comment on above: Performed By: #### L 500.17478, L500.62725 #### Test performed at: [address] [address] CO2 [Moles/Vol] 28 mmol/L Normal 21-32 [facility] Comment on above: Performed By: #### L 500.01126, L500.20240 #### Test performed at: [address] [address] Creatinine [Mass/Vol] 0.755 mg/dL Normal 0.550-1.020 [facility] Comment on above: Performed By: #### L 500.96216, L500.26874 #### Test performed at: [address] [address] Glucose [Mass/Vol] 75 mg/dL Normal 70-99 [facility] Comment on above: Result Comment: Fast ing GLUCOSE reference range has been updated per (ADA) [employer] Diabetes Association's recommendation. 06/08/2018 Performed By: #### L 500.23859, L500.09376 #### Test performed at: [address] [address] Potassium [Moles/Vol] 3.6 mmol/L Normal 3.5-5.1 [facility] Comment on above: Performed By: #### L 500.67617, L500.55627 #### Test performed at: [address] [address] Protein [Mass/Vol] 7.1 g/dL Normal 6.4-8.2 [facility] Comment on above: Performed By: #### L 500.01633, L500.66983 #### Test performed at: [address] [address] Sodium [Moles/Vol] 137 mmol/L Normal 136-145 [facility] Comment on above: Performed By: #### L 500.05747, L500.99798 #### Test performed at: [address] [address] Urea nitrogen [Mass/Vol] 18 mg/dL Normal 7-18 [facility] Comment on above: Performed By: #### L 500.92952, L500.99488 #### Test performed at: [address] [address] GFR ESTIMATEon 11-07-2020 IF AMER > 60 Normal > 60 [facility] Comment on above: Result Comment: eGFR (Estimated GFR) Units of measure:mL/min/1.73 meters sq. *CALCULATION REVISED 01/02/2015;IDMS-traceable MDRD equation eGFR is derived from the reexpressed MDRD Study equation using the following parameters: serum creatinine, age, gender and race. An eGFR<60 mL/min/1.73m2 for >3 months is consistent with chronic kidney disease. Refer to KDOQI guidelines for clinical interpretation. Performed By: #### L 500.26889, L500.76049 #### Test performed at: [address] [address] IF non-AFR AMER > 60 Normal > 60 [facility] Comment on above: Performed By: #### L 500.85433, L500.78193 #### Test performed at: [address] [address] CBC W/DIFFon 11-06-2020 BASO ABS 0.1 K/uL Normal 0.0-0.2 [facility] Comment on above: Performed By: #### L 200.03203 #### Test performed at: [address] [address] Basophils/100 WBC (Bld) 0.9 % Normal [facility] Comment on above: Performed By: #### L 200.76861 #### Test performed at: [address] [address] EOS ABS 0.2 K/uL Normal 0.0-0.5 [facility] Comment on above: Performed By: #### L 200.68462 #### Test performed at: [address] [address] Eosinophils/100 WBC (Bld) 2.0 % Normal [facility] Comment on above: Performed By: #### L 200.05067 #### Test performed at: [address] [address] IG % 0.3 % Normal [facility] Comment on above: Performed By: #### L 200.95669 #### Test performed at: [address] [address] IG ABS 0.03 K/uL Normal 0-0.05 [facility] Comment on above: Performed By: #### L 200.95053 #### Test performed at: [address] [address] Lymphocytes (Bld) [#/Vol] 3.3 10*3/uL Normal 1.2-3.5 [facility] Comment on above: Performed By: #### L 200.03521 #### Test performed at: [address] [address] Lymphocytes/100 WBC (Bld) 36.1 % Normal [facility] Comment on above: Performed By: #### L 200.22131 #### Test performed at: [address] [address] MONO ABS 0.7 K/uL Normal 0.0-1.0 [facility] Comment on above: Performed By: #### L 200.03036 #### Test performed at: [address] [address] Monocytes/100 WBC (Bld) 7.9 % Normal [facility] Comment on above: Performed By: #### L 200.27300 #### Test performed at: [address] [address] NEUTROPHIL ABS 4.8 K/uL Normal 1.4-6.6 [facility] Comment on above: Performed By: #### L 200.73252 #### Test performed at: [address] [address] Neutrophils/100 WBC (Bld) 52.8 % Normal [facility] Comment on above: Performed By: #### L 200.48428 #### Test performed at: [address] [address] Erythrocyte distribution width (RBC) [Ratio] 14.1 % Normal 11.5-14.5 [facility] Comment on above: Performed By: #### L 200.98437 #### Test performed at: [place] [address] [address] Hematocrit (Bld) [Volume fraction] 45.7 % Normal 36.0-48.0 [facility] Comment on above: Performed By: #### L 200.32789 #### Test performed at: [address] [address] Hemoglobin (Bld) [Mass/Vol] 14.8 g/dL Normal 12.0-15.0 [facility] Comment on above: Performed By: #### L 200.60347 #### Test performed at: [place] [id number] MCH (RBC) [Entitic mass] 30.3 pg Normal 25.4-34.6 [facility] Comment on above: Performed By: #### L 200.74011 #### Test performed at: [place] [id number] MCHC (RBC) [Mass/Vol] 32.4 g/dL Normal 31.5-36.5 [facility] Comment on above: Performed By: #### L 200.11937 #### Test performed at: [address] [address] MCV (RBC) [Entitic vol] 93.5 fL Normal 79.0-98.0 [facility] Comment on above: Performed By: #### L 200.84728 #### Test performed at: [address] [address] NRBC # 0.000 K/uL Normal 0-0.012 [facility] Comment on above: Performed By: #### L 200.31935 #### Test performed at: [address] [address] NRBC % 0.0 /100 WBC Normal 0-0.2 [facility] Comment on above: Performed By: #### L 200.56289 #### Test performed at: [address] [address] Platelet mean volume (Bld) [Entitic vol] 10.3 fL Normal 8.7-12.4 [facility] Comment on above: Performed By: #### L 200.19799 #### Test performed at: [address] [address] Platelets (Bld) [#/Vol] 219 10*3/uL Normal 140-440 [facility] Comment on above: Performed By: #### L 200.24869 #### Test performed at: [address] [address] RBC (Bld) [#/Vol] 4.89 10*6/uL Normal 3.5-5.5 [facility] Comment on above: Performed By: #### L 200.22870 #### Test performed at: [address] [address] WBC (Bld) [#/Vol] 9.1 10*3/uL Normal 3.9-11.0 [facility] Comment on above: Performed By: #### L 200.84611 #### Test performed at: [address] [address] CHEST PA/AP & LATERALon 10-15 CHEST PA/AP & LATERAL STUDY: CHEST PA/AP LATERAL; 11/06/2020 12:57 pm INDICATION: SOB/PAT. COMPARISON: None. ACCESSION NUMBER(S): [id number] ORDERING CLINICIAN: Ricky Adame FINDINGS: The lungs are clear without pleural effusion. Mild cardiomegaly. Otherwise unremarkable mediastinum, pedro, and pulmonary vasculature. IMPRESSION: No active disease in the chest. Normal [facility] CONSULTATION REPORTon 2020 CONSULTATION REPORT NAME: SULY HUFFMAN MR#: [id number] WINDSHIELD INSTALLER: Ricky Adame MD DATE OF CONSULTATION: 11/06/2020 [...] is cleared for anesthesia with acceptable risk. [facility] PT NAME: SULY HUFFMAN MR#: [id number] [address] [place] [address] ACCT: [id number] : 64 CONSULTATION Thank you for the courtesy of this consultation. RICKY ADAME MD MS/LUCAS/[id number] E/S: Ricky Adame MD 11/06/20 1746 Electronically Signed [facility] PT NAME: SULY HUFFMAN MR#: [id number] [address] [place] [address] ACCT: [id number] : 64 CONSULTATION Normal [facility] OPERATIVE REPORTon OPERATIVE REPORT NAME: SULY HUFFMAN MR#: [id number] SURGEON: Anil Singer MD DATE OF SURGERY: [...] in excellent condition. There were no complications. MD EUFEMIA ROUSSEAU/LUCAS/[id number] E/S: Anil Singer MD 08/09/20 1207 Electronically Signed [facility] PT NAME: SULY HUFFMAN MR#: [id number] [address] [place] [address] ACCT: [id number] : 64 OPERATIVE REPORT Normal [facility] CORONAVIRUSon 07-20-2020 SARS-CoV-2 (COVID-19) RNA FERNY+probe Ql [...] labeling are available on the FDA website: https://www.fda.gov/Nd dicalDevices/Safety/ EmergencySituations/uc r419856.htm COVID-19 Negative for COVID-19 (SARS-CoV-2 RNA) Normal [facility] Comment on above: Order Comment: CBN: YES [place]: MAIN COVID Testing: PRE-OP/PROCEDURE SCREEN Comment: 07/24 AGE at Spec VICENTE 59 Report age at specimen VICENTE? Y First test: UNKNOWN Employed in Healthcare: NO Symptomatic as defined by CDC: NO Hospitalized for COVID-19? NO ICU: NO Resident in a Congregated Care Setting: NO Order Date: 07/20/20 : Not Performed By: #### M 400.90673 #### Test performed at: [place] [address] MRI LUMBAR SP WO CONTRASTon 07-04-2020 MRI LUMBAR SP WO CONTRAST STUDY: MRI LUMBAR SP WO CONTRAST; 07/04/2020 10:30 am INDICATION: BACK PAIN. COMPARISON: None. ACCESSION NUMBER(S): [id number] ORDERING CLINICIAN: Anil Singer TECHNIQUE: Sagittal T1, [...] Multifocal degenerative changes as described above Normal [facility] LUMB SP COMP W FLEX/EXT 6 VW Son 06-20-2020 LUMB SP COMP W FLEX/EXT 6 VWS STUDY: LUMB SP COMP W FLEX/EXT 6 VWS ; 06/20/2020 11:35 am INDICATION: PAIN. COMPARISON: None. ACCESSION NUMBER(S): [id number] ORDERING CLINICIAN: Anil Singer FINDINGS: Mild dextroscoliosis centered at L3-4. No acute fracture or subluxation of the lumbar spine. Moderate multilevel degenerative disc height loss most pronounced at L3-4. Scattered endplate osteophytes. Lower lumbar predominant facet arthropathy. No spondylolisthesis. No pars defects identified. No instability on flexion or extension. IMPRESSION: Degenerative changes and scoliosis of the lumbar spine without instability. Normal [facility] SACRUM/COCCYXon 06-20-2020 SACRUM/COCCYX STUDY: SACRUM/COCCYX; 06/20/2020 10:10 am INDICATION: PAIN. COMPARISON: None. ACCESSION NUMBER(S): [id number] ORDERING CLINICIAN: Anil Singer FINDINGS: Degenerative changes of the sacroiliac joints. No definite erosions. No definite acute fracture identified. IMPRESSION: Degenerative changes of the sacroiliac joints. Normal [facility] IR ANGIOGRAM CAROTID CEREBRA L BILATERALon 06-14-2019 [...] 70 minutes. Neurointerventionalist : Jose Michael MD [place]: MD Nicolasa Beard MD Comparison: None Fluoroscopy [...] a single-wall needle technique, and a 5 Burkinan intravascular sheath was placed within the right common femoral artery, establishing arterial access. A 5 Burkinan multipurpose catheter was then advanced over a [...] focal segmental narrowing. There is a right TYPESETTING MACHINE TENDER noted. Otherwise no other evidence of cerebral [...] and distal branches. There is a left TYPESETTING MACHINE TENDER noted. Inspection of the remaining left internal [...] and venous phase images were unremarkable. Right COOKY PACKER technique: A right common femoral artery angiogram [...] narrowing/vasospasm mostly in the right anterior circulation,?distal TYPESETTING MACHINE TENDER branches with moderate focal segmental vasospasm.? 2. 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 Vasculitis cannot be ruled out. 3. 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 Dr. Gayathri Maradiaga dictated this invasive procedure. [...] Jose Michael MD 06/14/19 Final result Normal [facility] CTA HEAD W CONTRASTon 2019 CTA HEAD [...] Dawna Meade MD 06/10/19 Final result Normal [facility] No intracranial flow-limiting stenosis or aneurysm. [facility], [place] EXAMINATION: CTA OF THE HEAD WITH CONTRAST [...] fluid collection. The varner-white differentiation is maintained. [facility] [place], [place] Juanc[place]os, pn Incoming Radiant Results From [email or web address] - 06/10/2019 4:49 PM EDT EXAMINATION: CTA [...] IMPRESSION: No intracranial flow-limiting stenosis or aneurysm. [place], [place] XR CHEST (2 VW)on 06-10-2019 XR CHEST (2 VW) EXAMINATION: TWO XRAY VIEWS OF THE CHEST 06/10/2019 11:09 am COMPARISON: Chest 05/24/2019 HISTORY: ORDERING SYSTEM PROVIDED HISTORY: Vasculitis ([facility]) TECHNOLOGIST PROVIDED HISTORY: Reason for Exam: [...] Uzair Jon MD 06/10/19 Final result Normal [facility] XR CHEST STANDARD (2 VW)on 0 06-10-2019 Focal subsegmental atelectasis or focal pneumonia mid to lateral lower left lung. Chest radiograph series appears otherwise unremarkable. [place] EXAMINATION: TWO XRA Y VIEWS OF THE CHEST 06/10/2019 11:09 am COMPARISON: Chest 05/24/2019 HISTORY: ORDERING SYSTEM PROVIDED HISTORY: Vasculitis ([facility]) TECHNOLOGIST PROVIDED HISTORY: Reason for Exam: vasculitis Acuity: Acute Type of Exam: Initial FINDINGS: The cardiomediastinal and hilar silhouettes appear unremarkable. Focal density partially obscures mid to lateral aspect of the left hemidiaphragm on frontal view. The right lung appears clear. No pleural effusion evident. No pneumothorax is seen. No acute osseous abnormality is identified. [facility] [place] Juancarlos, Mhpn Incoming Radiant Results From [employer] - 06/10/2019 11:47 AM EDT EXAMINATION: TWO XRAY VIEWS OF THE CHEST 06/10/2019 11:09 am COMPARISON: Chest 05/24/2019 HISTORY: ORDERING SYSTEM PROVIDED HISTORY: Vasculitis ([facility]) TECHNOLOGIST PROVIDED HISTORY: Reason for Exam: [...] lung. Chest radiograph series appears otherwise unremarkable. [facility] [place] Cryoglobulinson 05-30-2019 Cryoglobulins 0 mg/dL Normal 0-10 [facility] Comment on above: Performed By: #### C DP, BMP, LIPR, MG, GLYHGB #### [employer] [address] [place] [address] [employer] Operator: Zaki Humphries MD Basic Metabolic Profon 05-26 (cont.) Normal [facility] Comment on above: Result Comment: Aver age GFR for 50-59 years old: 93 mL/min/1.73sq m Chronic Kidney Disease: <60 mL/min/1.73sq m Kidney failure: <15 mL/min/1.73sq m eGFR calculated using average adult body mass. Additional eGFR calculator available at: http://www.Receept.EnergyChest/multiple_crcl_2012.htm Performed By: #### C DP, BMP, LIPR, MG, GLYHGB #### [employer] [address] [place] [address] [employer] Operator: Zaki Humphries MD Anion gap [Moles/Vol] 12 mmol/L Normal 9-17 [facility] Comment on above: Performed By: #### C DP, BMP, LIPR, MG, GLYHGB #### [address] [address] [employer] Operator: Zaki Humphries MD Calcium [Mass/Vol] 9.0 mg/dL Normal 8.6-10.4 [facility] Comment on above: Performed By: #### C DP, BMP, LIPR, MG, GLYHGB #### [address] [address] [employer] Operator: Zaki Humphries MD Chloride [Moles/Vol] 102 mmol/L Normal 98-107 [facility] Comment on above: Performed By: #### C DP, BMP, LIPR, MG, GLYHGB #### [address] [address] [employer] Operator: Zaki Humphries MD CO2 [Moles/Vol] 23 mmol/L Normal 20-31 [facility] Comment on above: Performed By: #### C DP, BMP, LIPR, MG, GLYHGB #### [address] [address] [employer] Operator: Zaki Humphries MD Creatinine [Mass/Vol] 0.59 mg/dL Normal 0.50-0.90 [facility] Comment on above: Performed By: #### C DP, BMP, LIPR, MG, GLYHGB #### [address] [address] [employer] Operator: Zaki Humphries MD GFR, Amer >60 Normal >60 [facility] Comment on above: Performed By: #### C DP, BMP, LIPR, MG, GLYHGB #### [address] [address] [employer] Operator: Zaki Humphries MD GFR,non Amer >60 Normal >60 [facility] Comment on above: Performed By: #### C DP, BMP, LIPR, MG, GLYHGB #### [address] [address] [employer] Operator: Zaki Humphries MD Glucose [Mass/Vol] 217 mg/dL High 70-99 [facility] Comment on above: Performed By: #### C DP, BMP, LIPR, MG, GLYHGB #### [address] [address] [employer] Operator: Zaki Humphries MD Potassium [Moles/Vol] 3.9 mmol/L Normal 3.7-5.3 [facility] Comment on above: Performed By: #### C DP, BMP, LIPR, MG, GLYHGB #### [address] [address] [employer] Operator: Zaki Humphries MD Sodium [Moles/Vol] 137 mmol/L Normal 135-144 [facility] Comment on above: Performed By: #### C DP, BMP, LIPR, MG, GLYHGB #### [address] [address] [employer] Operator: Zaki Humphires MD Urea nitrogen [Mass/Vol] 20 mg/dL Normal -20 [facility] Comment on above: Performed By: #### C DP, BMP, LIPR, MG, GLYHGB #### [address] [address] [employer] Operator: Zaki Humphries MD BUN/CRE Ratio NOT REPORTED Normal -20 [facility] Comment on above: Performed By: #### C DP, BMP, LIPR, MG, GLYHGB #### [facility] [address] [place] [address] [employer] Operator: Zaki Humphries MD Staging: NOT REPORTED Normal [facility] Comment on above: Performed By: #### C DP, BMP, LIPR, MG, GLYHGB #### [facility] [address] [place] [address] [employer] Operator: Zaki Humphries MD Basic metabolic panelon 05-14 Anion gap [Moles/Vol] 12 mmol/L 9 - 17 mmol/L [place] Bun/Cre Ratio NOT REPORTED [place] Calcium [Mass/Vol] 9.0 mg/dL 8.6 - 10. 4 mg/dL [place] Chloride [Moles/Vol] 102 mmol/L 98 - 10 7 mmol/L [place] CO2 [Moles/Vol] 23 mmol/L 20 - 31 mmol/L [place] Creatinine [Mass/Vol] 0.59 mg/dL 0.5 - 0.9 mg/dL [place] GFR >60 >60 mL/min [place] GFR Non- >60 >60 mL/min [place] GFR/1.73 sq M predicted among non-blacks MDRD (S/P/Bld) [Vol rate/Area] [place] Comment on above: Average GFR for 50-5 9 years old: 93 mL/min/1.73sq m Chronic Kidney Disease: <60 mL/min/1.73sq m Kidney failure: <15 mL/min/1.73sq m eGFR calculated using average adult body mass. Additional eGFR calculator available at: http://www.Receept.EnergyChest/multiple_crcl_2012.htm GFR/1.73 sq M predicted among non-blacks MDRD (S/P/Bld) [Vol rate/Area] NOT REPORTED [place] Glucose [Mass/Vol] 217 mg/dL High 70 - 99 mg/dL [place] Potassium [Moles/Vol] 3.9 mmol/L 3.7 - 5.3 mmol/L [place] Sodium [Moles/Vol] 137 mmol/L 135 - 144 mmol/L [place] Urea nitrogen [Mass/Vol] 20 mg/dL 6 - 20 mg/dL [place] CBCon 05-27-2019 Erythrocyte distribution width (RBC) [Ratio] 13.4 % Normal 11.8-14.4 [facility] Comment on above: Performed By: #### C DP, BMP, LIPR, MG, GLYHGB #### [facility] [facility] [address] [place] [address] [employer] Operator: Zaki Humphries MD Hematocrit (Bld) [Volume fraction] 40.2 % Normal 36.3-47.1 [facility] Comment on above: Performed By: #### C DP, BMP, LIPR, MG, GLYHGB #### [facility] [address] [place] [address] [employer] Operator: Zaki Humphries MD Hemoglobin (Bld) [Mass/Vol] 13.3 g/dL Normal 11.9-15.1 [facility] Comment on above: Performed By: #### C DP, BMP, LIPR, MG, GLYHGB #### [facility] [address] [place] [address] [employer] Operator: Zaki Humphries MD MCH (RBC) [Entitic mass] 30.0 pg Normal 25.2-33.5 [facility] Comment on above: Performed By: #### C DP, BMP, LIPR, MG, GLYHGB #### [facility] [address] [place] [address] [employer] Operator: Zaki Humphries MD MCHC (RBC) [Mass/Vol] 33.1 g/dL Normal 28.4-34.8 [facility] Comment on above: Performed By: #### C DP, BMP, LIPR, MG, GLYHGB #### [facility] [address] [place] [id number] [employer] Operator: Zaki Humphries MD MCV (RBC) [Entitic vol] 90.7 fL Normal 82.6-102.9 [facility] Comment on above: Performed By: #### C DP, BMP, LIPR, MG, GLYHGB #### [facility] [address] [place] [address] [employer] Operator: Zaki Humphries MD NRBC Automated 0.0 per 100 WBC Normal 0.0 [facility] Comment on above: Performed By: #### C DP, BMP, LIPR, MG, GLYHGB #### [facility] [address] [place] [address] [employer] Operator: Zaki Humphries MD Platelet mean volume (Bld) [Entitic vol] 10.5 fL Normal 8.1-13.5 [facility] Comment on above: Performed By: #### C DP, BMP, LIPR, MG, GLYHGB #### [address] [address] [employer] Operator: Zaki Humphries MD Platelets (Bld) [#/Vol] 254 10*3/uL Normal 138-453 [facility] Comment on above: Performed By: #### C DP, BMP, LIPR, MG, GLYHGB #### [address] [address] [employer] Operator: Zaki Humphries MD RBC (Bld) [#/Vol] 4.43 10*6/uL Normal 3.95-5.11 [facility] Comment on above: Performed By: #### C DP, BMP, LIPR, MG, GLYHGB #### [facility] [address] [place] [address] [employer] Operator: Zaki Humphries MD WBC (Bld) [#/Vol] 14.2 10*3/uL High 3.5-11.3 [facility] Comment on above: Performed By: #### C DP, BMP, LIPR, MG, GLYHGB #### [facility] [address] [place] [address] [employer] Batching Plant Operator: Zaki Humphries MD Erythrocyte distribution width (RBC) [Ratio] 13.4 % 11.8 - 14.4 % [place] Hematocrit (Bld) [Volume fraction] 40.2 % 36.3 - 47.1 % [place] Hemoglobin (Bld) [Mass/Vol] 13.3 g/dL 11.9 - 15.1 g/dL [place] Interpretation and review of laboratory results Abnormal [place] MCH (RBC) [Entitic mass] 30.0 pg 25.2 - 33.5 pg [place] MCHC (RBC) [Mass/Vol] 33.1 g/dL 28.4 - 34.8 g/dL [place] MCV (RBC) [Entitic vol] 90.7 fL 82.6 - 102.9 fL [place] Platelet mean volume (Bld) [Entitic vol] 10.5 fL 8.1 - 13.5 fL [place] Platelets (Bld) [#/Vol] 254 10*3/uL [place] RBC (Bld) [#/Vol] 4.43 10*6/uL 3.95 - 5.1 1 m/uL [place] WBC (Bld) [#/Vol] 0.0 10*3/uL 0.0 per 10 0 WBC [place] WBC (Bld) [#/Vol] 14.2 10*3/uL High [place] CSF DIFFERENTIALon 0 Bands, CSF % [place] Baso, CSF % [place] Blasts, CSF % [place] Eosinophils, CSF % [place] Fluid Diff Comment [place] Lymphs, CSF 92 % [place] Comment on above: The reference range and other method performance specifications have not been established for this body fluid. The test result must be integrated into the clinical context for interpretation. Metamyelocyte, CSF % [place] Trinity/Macrophage, CSF % [place] Myelocyte, CSF % [place] Neutrophils, CSF 1 % [place] Comment on above: The reference range and other method performance specifications have not been established for this body fluid. The test result must be integrated into the clinical context for interpretation. Other Cells, Fluid MONOCYTES % [place] Comment on above: The reference range and other method performance specifications have not been established for this body fluid. The test result must be integrated into the clinical context for interpretation. CSF Differentialon 0 Other Cells MONOCYTES Normal [facility] Comment on above: Result Comment: The reference range and other method performance specifications have not been established for this body fluid. The test result must be integrated into the clinical context for interpretation. Performed By: #### C DP, BMP, LIPR, MG, GLYHGB #### [address] [id number] [employer] Operator: Zaki Humphries MD HIV REFLEXon 05-27-2019 HIV Ag/Ab NONREACTIVE NONREACTIVE [place] Comment on above: No laboratory eviden ce of HIV infection. If acute HIV infection is suspected, consider testing for HIV-1 RNA. HIV Reflexon 05-27-2019 HIV Ag/Ab NONREACTIVE Normal NR [facility] Comment on above: Result Comment: No l aboratory evidence of HIV infection. If acute HIV infection is suspected, consider testing for HIV-1 RNA. Performed By: #### C DP, BMP, LIPR, MG, GLYHGB #### [facility] [address] [place] [address] Con[employer]atching Plant Operator: Zaki Humphries MD Magnesiumon 05-27-2019 Magnesium [Mass/Vol] 2.7 mg/dL High 1.6-2.6 [facility] Comment on above: Performed By: #### C DP, BMP, LIPR, MG, GLYHGB #### [facility] [address] [place] [address] [employer] Operator: Zaki Humphries MD Magnesium [Mass/Vol] 2.7 mg/dL High 1.6 - 2 .6 mg/dL [place] Otheron 05-27-2019 Interpretation and review of laboratory results Abnormal [place] POC Glucose Fingerstickon Glucose [Mass/Vol] 230 mg/dL High 65 - 105 mg/dL [place] Interpretation and review of laboratory results Abnormal [place] Glucose [Mass/Vol] 225 mg/dL High 65 - 105 mg/dL [place] Interpretation and review of laboratory results Abnormal [place] Glucose [Mass/Vol] 216 mg/dL High 65 - 105 mg/dL [place] Interpretation and review of laboratory results Abnormal [place] PROTEIN S FUNCTIONALon 05-26 Interpretation and review of laboratory results Abnormal [place] Protein [Mass/Vol] g/dL High 59 - 130 % [place] Comment on above: Patients on oral [...] 020 Protein [Mass/Vol] 121 % Normal >80 [facility] Comment on above: Result Comment: Patients on [...] BMP, LIPR, MG, GLYHGB #### [facility] [address] [place] [address] Concrete Batching Plant Operator: Zaki Humphries MD Protein C Functionalon 05-26 Protein [Mass/Vol] 121 % >80 [place] Comment on above: Patients on oral [...] Activityon 020 Protein [Mass/Vol] g/dL High 59-130 [facility] Comment on above: Result Comment: Patients on [...] BMP, LIPR, MG, GLYHGB #### [facility] [place] [address] Concrete Batching Plant Operator: Zaki Humphries MD ANTI-NEUTROPHILIC CYTOPLASMI C ANTIBODYon 05-26-2019 ANCA Myeloperoxidase 8 AU/mL <100 [place] Comment on above: Reference Ranges (MPO and PR3): <100 AU/mL Negative 100-120 AU/mL Equivocal >120 AU/mL Positive Protein [Mass/Vol] 10 AU/mL <100 [place] Comment on above: Reference Ranges (MPO and PR3): <100 AU/mL Negative 100-120 AU/mL Equivocal >120 AU/mL Positive ANTI-PHOSPHOLIPID ABon 05-25 Anticardiolipin IgA 1.1 <12 APU [place] Comment on above: Reference Range: 12 - 15 Equivocal >15 Positive Anticardiolipin IgG 2.5 <20 GPU [place] Comment on above: Reference Range: 20.0 - 29.9 Low Positive 30.0 - 79.9 Moderate Positive >79.9 High Positive Cardiolipin Ab IgM 1.7 <20 MPU [place] Comment on above: Reference Range: 20.0 - 29.9 Low Positive 30.0 - 79.9 Moderate Positive >79.9 High Positive Anti-Phospholipid Abon 05-25 Antiphospholipid IgA 1.1 APU Normal <12 [facility] Comment on above: Result Comment: Reference Range: 12 - 15 Equivocal >15 Positive Performed By: #### D AU #### [address] [address] [employer] Operator: Zaki Humphries MD Antiphospholipid IgG 2.5 GPU Normal <20 [facility] Comment on above: Result Comment: Reference Range: 20.0 - 29.9 Low Positive 30.0 - 79.9 Moderate Positive >79.9 High Positive Performed By: #### D AU #### [address] [address] [employer] Operator: Zaki Humphries MD Antiphospholipid IgM 1.7 MPU Normal <20 [facility] Comment on above: Result Comment: Reference Range: 20.0 - 29.9 Low Positive 30.0 - 79.9 Moderate Positive >79.9 High Positive Performed By: #### D AU #### [address] [address] [employer] Operator: Zaki Humphries MD Basic Metabolic Profon 05-25 (cont.) Normal [facility] Comment on above: Result Comment: Aver age GFR for 50-59 years old: 93 mL/min/1.73sq m Chronic Kidney Disease: <60 mL/min/1.73sq m Kidney failure: <15 mL/min/1.73sq m eGFR calculated using average adult body mass. Additional eGFR calculator available at: http://www.Receept.EnergyChest/multiple_crcl_2012.htm Performed By: #### C DP, BMP, LIPR, MG, GLYHGB #### [address] [address] [employer] Operator: Zaki Humphries MD Anion gap [Moles/Vol] 12 mmol/L Normal -17 [facility] Comment on above: Performed By: #### C DP, BMP, LIPR, MG, GLYHGB #### [address] [address] [employer] Operator: Zaki Humphries MD Calcium [Mass/Vol] 9.2 mg/dL Normal 8.6-10.4 [facility] Comment on above: Performed By: #### C DP, BMP, LIPR, MG, GLYHGB #### [address] [address] [employer] Operator: Zaki Humphries MD Chloride [Moles/Vol] 103 mmol/L Normal 98-107 [facility] Comment on above: Performed By: #### C DP, BMP, LIPR, MG, GLYHGB #### [address] [address] [employer] Operator: Zaki Humphries MD CO2 [Moles/Vol] 21 mmol/L Normal 20-31 [facility] Comment on above: Performed By: #### C DP, BMP, LIPR, MG, GLYHGB #### [address] [address] [employer] Operator: Zaki Humphries MD Creatinine [Mass/Vol] 0.57 mg/dL Normal 0.50-0.90 [facility] Comment on above: Performed By: #### C DP, BMP, LIPR, MG, GLYHGB #### [address] [address] [employer] Operator: Zaki Humphries MD GFR, Amer >60 Normal >60 [facility] Comment on above: Performed By: #### C DP, BMP, LIPR, MG, GLYHGB #### [address] [address] [employer] Operator: Zaki Humphries MD GFR,non Amer >60 Normal >60 [facility] Comment on above: Performed By: #### C DP, BMP, LIPR, MG, GLYHGB #### [facility] [address] [place] [address] [employer] Operator: Zaki Humphries MD Glucose [Mass/Vol] 203 mg/dL High 70-99 [facility] Comment on above: Performed By: #### C DP, BMP, LIPR, MG, GLYHGB #### [facility] [address] [place] [address] [employer] Operator: Zaki Humphries MD Potassium [Moles/Vol] 3.9 mmol/L Normal 3.7-5.3 [facility] Comment on above: Performed By: #### C DP, BMP, LIPR, MG, GLYHGB #### [facility] [address] [place] [address] [employer] Operator: Zaki Humphries MD Sodium [Moles/Vol] 136 mmol/L Normal 135-144 [facility] Comment on above: Performed By: #### C DP, BMP, LIPR, MG, GLYHGB #### [facility] [address] [place] [address] [employer] Operator: Zaki Humphries MD Urea nitrogen [Mass/Vol] 17 mg/dL Normal 6-20 [facility] Comment on above: Performed By: #### C DP, BMP, LIPR, MG, GLYHGB #### [facility] [address] [place] [address] [employer] Operator: Zaki Humphries MD BUN/CRE Ratio NOT REPORTED Normal 9-20 [facility] Comment on above: Performed By: #### C DP, BMP, LIPR, MG, GLYHGB #### [facility] [address] [place] [address] [employer] Operator: Zaki Humphries MD Staging: NOT REPORTED Normal [facility] Comment on above: Performed By: #### C DP, BMP, LIPR, MG, GLYHGB #### [facility] [address] [place] [address] [employer] Operator: Zaki Humphries MD Basic metabolic panelon 05-14 Anion gap [Moles/Vol] 12 mmol/L 9 - 17 mmol/L [place] Bun/Cre Ratio NOT REPORTED [facility] [place] Calcium [Mass/Vol] 9.2 mg/dL 8.6 - 10. 4 mg/dL [place] Chloride [Moles/Vol] 103 mmol/L 98 - 10 7 mmol/L [place] CO2 [Moles/Vol] 21 mmol/L 20 - 31 mmol/L [place] Creatinine [Mass/Vol] 0.57 mg/dL 0.5 - 0.9 mg/dL [place] GFR >60 >60 mL/min [place] GFR Non- >60 >60 mL/min [place] GFR/1.73 sq M predicted among non-blacks MDRD (S/P/Bld) [Vol rate/Area] NOT REPORTED [place] GFR/1.73 sq M predicted among non-blacks MDRD (S/P/Bld) [Vol rate/Area] [place] Comment on above: Average GFR for 50-5 9 years old: 93 mL/min/1.73sq m Chronic Kidney Disease: <60 mL/min/1.73sq m Kidney failure: <15 mL/min/1.73sq m eGFR calculated using average adult body mass. Additional eGFR calculator available at: http://www.Receept.EnergyChest/multiple_crcl_2012.htm Glucose [Mass/Vol] 203 mg/dL High 70 - 99 mg/dL [place] Interpretation and review of laboratory results Abnormal [place] Potassium [Moles/Vol] 3.9 mmol/L 3.7 - 5.3 mmol/L [place] Sodium [Moles/Vol] 136 mmol/L 135 - 144 mmol/L [place] Urea nitrogen [Mass/Vol] 17 mg/dL 6 - 20 mg/dL [place] CBCon 05-26-2019 Erythrocyte distribution width (RBC) [Ratio] 13.7 % Normal 11.8-14.4 [facility] Comment on above: Performed By: #### C DP, BMP, LIPR, MG, GLYHGB #### [address] [address] [employer]: Zaki Humphries MD Hematocrit (Bld) [Volume fraction] 39.0 % Normal 36.3-47.1 [facility] Comment on above: Performed By: #### C DP, BMP, LIPR, MG, GLYHGB #### [address] [address] [employer] Operator: Zaki Humphries MD Hemoglobin (Bld) [Mass/Vol] 13.0 g/dL Normal 11.9-15.1 [facility] Comment on above: Performed By: #### C DP, BMP, LIPR, MG, GLYHGB #### [address] [address] [employer] Operator: Zaki Humphries MD MCH (RBC) [Entitic mass] 30.5 pg Normal 25.2-33.5 [facility] Comment on above: Performed By: #### C DP, BMP, LIPR, MG, GLYHGB #### [address] [address] [employer] Operator: Zaki Humphries MD MCHC (RBC) [Mass/Vol] 33.3 g/dL Normal 28.4-34.8 [facility] Comment on above: Performed By: #### C DP, BMP, LIPR, MG, GLYHGB #### [address] [address] [employer]: Zaki Humphries MD MCV (RBC) [Entitic vol] 91.5 fL Normal 82.6-102.9 [facility] Comment on above: Performed By: #### C DP, BMP, LIPR, MG, GLYHGB #### [address] [id number] [employer]: Zaki Humphries MD NRBC Automated 0.0 per 100 WBC Normal 0.0 [facility] Comment on above: Performed By: #### C DP, BMP, LIPR, MG, GLYHGB #### [address] [address] [employer]: Zaki Humphries MD Platelet mean volume (Bld) [Entitic vol] 9.9 fL Normal 8.1-13.5 [facility] Comment on above: Performed By: #### C DP, BMP, LIPR, MG, GLYHGB #### [address] [address] [employer]: Zaki Humphries MD Platelets (Bld) [#/Vol] 234 10*3/uL Normal 138-453 [facility] Comment on above: Performed By: #### C DP, BMP, LIPR, MG, GLYHGB #### [address] [address] [employer] Operator: Zaki Humphries MD RBC (Bld) [#/Vol] 4.26 10*6/uL Normal 3.95-5.11 [facility] Comment on above: Performed By: #### C DP, BMP, LIPR, MG, GLYHGB #### [address] [address] [employer] Operator: Zaki Humphries MD WBC (Bld) [#/Vol] 18.3 10*3/uL High 3.5-11.3 [facility] Comment on above: Performed By: #### C DP, BMP, LIPR, MG, GLYHGB #### [address] [address] [employer] Operator: Zaki Humphries MD Erythrocyte distribution width (RBC) [Ratio] 13.7 % 11.8 - 14.4 % [place] Hematocrit (Bld) [Volume fraction] 39.0 % 36.3 - 47.1 % [place] Hemoglobin (Bld) [Mass/Vol] 13.0 g/dL 11.9 - 15.1 g/dL [place] Interpretation and review of laboratory results Abnormal [place] MCH (RBC) [Entitic mass] 30.5 pg 25.2 - 33.5 pg [place] MCHC (RBC) [Mass/Vol] 33.3 g/dL 28.4 - 34.8 g/dL [place] MCV (RBC) [Entitic vol] 91.5 fL 82.6 - 102.9 fL [place] Platelet mean volume (Bld) [Entitic vol] 9.9 fL 8.1 - 13.5 fL [place] Platelets (Bld) [#/Vol] 234 10*3/uL [place] RBC (Bld) [#/Vol] 4.26 10*6/uL 3.95 - 5.1 1 m/uL [place] WBC (Bld) [#/Vol] 18.3 10*3/uL [place] WBC (Bld) [#/Vol] 0.0 10*3/uL 0.0 per 10 0 WBC [place] GLOMERULAR BASEMENT MEMBRANE (GBM) ANTIBODY IGGon 05-26-2019 GBM Ab, IgG 9 AU/mL <100 [place] Comment on above: GBM Reference Range: [...] 05-26-2019 Magnesium [Mass/Vol] 2.6 mg/dL Normal 1.6-2.6 [facility] Comment on above: Performed By: #### C DP, BMP, LIPR, MG, GLYHGB #### [facility] [address] [place] [address] [phone] [employer] Operator: Zaki Humphries MD Magnesium [Mass/Vol] 2.6 mg/dL 1.6 - 2 .6 mg/dL [place] Neutrophil Cytopl Abon 05-25 MPO-ANCA 8 AU/mL Normal <100 [facility] Comment on above: Result Comment: Reference Ranges (MPO and PR3): <100 AU/mL Negative 100-120 AU/mL Equivocal >120 AU/mL Positive Performed By: #### D AU #### [facility] [place], [place] [id number] [employer] Operator: Zaki Humphries MD PR3-ANCA 10 AU/mL Normal <100 [facility] Comment on above: Result Comment: Reference Ranges (MPO and PR3): <100 AU/mL Negative 100-120 AU/mL Equivocal >120 AU/mL Positive Performed By: #### D AU #### [address] [id number] [employer] Operator: Zaki Humphries MD POC Glucose Fingerstickon Glucose [Mass/Vol] 278 mg/dL High 65 - 105 mg/dL [place] Interpretation and review of laboratory results Abnormal [place] Glucose [Mass/Vol] 227 mg/dL High 65 - 105 mg/dL [place] Interpretation and review of laboratory results Abnormal [place] Glucose [Mass/Vol] 179 mg/dL High 65 - 105 mg/dL [place] Interpretation and review of laboratory results Abnormal [place] Glucose [Mass/Vol] 186 mg/dL High 65 - 105 mg/dL [place] Interpretation and review of laboratory results Abnormal [place] AROLDO SCREEN WITH REFLEXon Nuclear Ab IF (S) [Titer] Negative NEGATIVE [place] Comment on above: This test was run on the [employer] AROLDO test system. The system provides ten test results (HEp-2NA, dsDNA, SSA, SSB, Sm, CLEARANCE CENTER MANAGER, Scl-70, Sabine-1, Centromere and Histone analytes) from a single patient sample. A negative AROLDO screen indicates that the specimen was negative for all ten markers. AROLDO Screenon 05-25-2019 AROLDO Screen Negative Normal NEG [facility] Comment on above: Result Comment: This test was run on the [employer] AROLDO test system. The system provides ten test results (HEp-2NA, dsDNA, SSA, SSB, Sm, CLEARANCE CENTER MANAGER, Scl-70, Sabine-1, Centromere and Histone analytes) from a single patient sample. A negative AROLDO screen indicates that the specimen was negative for all ten markers. Performed By: #### D AU #### [address] [address] [employer] Operator: Zaki Humphries MD Basic Metabolic Profon 05-24 (cont.) Normal [facility] Comment on above: Result Comment: Aver age GFR for 50-59 years old: 93 mL/min/1.73sq m Chronic Kidney Disease: <60 mL/min/1.73sq m Kidney failure: <15 mL/min/1.73sq m eGFR calculated using average adult body mass. Additional eGFR calculator available at: http://www.Receept.EnergyChest/multiple_crcl_2012.htm Performed By: #### C DP, BMP, LIPR, MG, GLYHGB #### [facility] [address] [place] [address] [employer] Operator: Zaki Humphries MD Anion gap [Moles/Vol] 12 mmol/L Normal 9-17 [facility] Comment on above: Performed By: #### C DP, BMP, LIPR, MG, GLYHGB #### [facility] [address] [place] [address] [employer] Operator: Zaki Humphries MD Calcium [Mass/Vol] 8.9 mg/dL Normal 8.6-10.4 [facility] Comment on above: Performed By: #### C DP, BMP, LIPR, MG, GLYHGB #### [facility] [address] [place] [address] [employer] Operator: Zaki Humphries MD Chloride [Moles/Vol] 109 mmol/L High 98-107 [facility] Comment on above: Performed By: #### C DP, BMP, LIPR, MG, GLYHGB #### [facility] [address] [place] [address] [employer] Operator: Zaki Humphries MD CO2 [Moles/Vol] 17 mmol/L Low 20-31 [facility] Comment on above: Performed By: #### C DP, BMP, LIPR, MG, GLYHGB #### [address] [address] [employer]: Zaki Humphries MD Creatinine [Mass/Vol] 0.54 mg/dL Normal 0.50-0.90 [facility] Comment on above: Performed By: #### C DP, BMP, LIPR, MG, GLYHGB #### [facility] [address] [place] [address] [employer] Operator: Zaki Humphries MD GFR, Amer >60 Normal >60 [facility] Comment on above: Performed By: #### C DP, BMP, LIPR, MG, GLYHGB #### [facility] [address] [place] [address] [employer] Operator: Zaki Humphries MD GFR,non Amer >60 Normal >60 [facility] Comment on above: Performed By: #### C DP, BMP, LIPR, MG, GLYHGB #### [facility] [address] [place] [address] [employer] Operator: Zaki Humphries MD Glucose [Mass/Vol] 183 mg/dL High 70-99 [facility] Comment on above: Performed By: #### C DP, BMP, LIPR, MG, GLYHGB #### [facility] [address] [place] [address] [employer] Operator: Zaki Humphries MD Potassium [Moles/Vol] 4.3 mmol/L Normal 3.7-5.3 [facility] Comment on above: Result Comment: SPEC IMEN SLIGHTLY HEMOLYZED, RESULTS MAY BE ADVERSELY AFFECTED. Performed By: #### C DP, BMP, LIPR, MG, GLYHGB #### [facility] [address] [place] [address] [employer] Operator: Zaki Humphries MD Sodium [Moles/Vol] 138 mmol/L Normal 135-144 [facility] Comment on above: Performed By: #### C DP, BMP, LIPR, MG, GLYHGB #### [facility] [address] [place] [address] [employer] Operator: Zaki Humphries MD Urea nitrogen [Mass/Vol] 17 mg/dL Normal -20 [facility] Comment on above: Performed By: #### C DP, BMP, LIPR, MG, GLYHGB #### [facility] [address] [place] [address] [employer] Operator: Zaki Humphries MD BUN/CRE Ratio NOT REPORTED Normal - [facility] Comment on above: Performed By: #### C DP, BMP, LIPR, MG, GLYHGB #### [facility] [address] [place] [address] [employer] Operator: Zaki Humphries MD Staging: NOT REPORTED Normal [facility] Comment on above: Performed By: #### C DP, BMP, LIPR, MG, GLYHGB #### [facility] [address] [place] [address] [employer] Operator: Zaki Humphries MD Basic metabolic panelon 05-14 Anion gap [Moles/Vol] 12 mmol/L 9 - 17 mmol/L [place] Bun/Cre Ratio NOT REPORTED [place] Calcium [Mass/Vol] 8.9 mg/dL 8.6 - 10. 4 mg/dL [place] Chloride [Moles/Vol] 109 mmol/L High 98 - 10 7 mmol/L [place] CO2 [Moles/Vol] 17 mmol/L Low 20 - 31 mmol/L [place] Creatinine [Mass/Vol] 0.54 mg/dL 0.5 - 0.9 mg/dL [place] GFR >60 >60 mL/min [place] GFR Non- >60 >60 mL/min [place] GFR/1.73 sq M predicted among non-blacks MDRD (S/P/Bld) [Vol rate/Area] [place] Comment on above: Average GFR for 50-5 9 years old: 93 mL/min/1.73sq m Chronic Kidney Disease: <60 mL/min/1.73sq m Kidney failure: <15 mL/min/1.73sq m eGFR calculated using average adult body mass. Additional eGFR calculator available at: http://www.iCoolhunt/multiple_crcl_2012.htm GFR/1.73 sq M predicted among non-blacks MDRD (S/P/Bld) [Vol rate/Area] NOT REPORTED [place] Glucose [Mass/Vol] 183 mg/dL High 70 - 99 mg/dL [place] Interpretation and review of laboratory results Abnormal [place] Potassium [Moles/Vol] 4.3 mmol/L 3.7 - 5.3 mmol/L [place] Comment on above: SPECIMEN SLIGHTLY HE MOLYZED, RESULTS MAY BE ADVERSELY AFFECTED. Sodium [Moles/Vol] 138 mmol/L 135 - 144 mmol/L [place] Urea nitrogen [Mass/Vol] 17 mg/dL 6 - 20 mg/dL [place] CBCon 05-25-2019 Erythrocyte distribution width (RBC) [Ratio] 13.2 % Normal 11.8-14.4 [facility] Comment on above: Performed By: #### C DP, BMP, LIPR, MG, GLYHGB #### [facility] [address] [place] [address] [employer] Operator: Zaki Humphries MD Hematocrit (Bld) [Volume fraction] 42.5 % Normal 36.3-47.1 [facility] Comment on above: Performed By: #### C DP, BMP, LIPR, MG, GLYHGB #### [address] [address] [employer] Operator: Zaki Humphries MD Hemoglobin (Bld) [Mass/Vol] 13.7 g/dL Normal 11.9-15.1 [facility] Comment on above: Performed By: #### C DP, BMP, LIPR, MG, GLYHGB #### [address] [address] [employer] Operator: Zaki Humphries MD MCH (RBC) [Entitic mass] 29.8 pg Normal 25.2-33.5 [facility] Comment on above: Performed By: #### C DP, BMP, LIPR, MG, GLYHGB #### [address] [address] [employer] Operator: Zaki Humphries MD MCHC (RBC) [Mass/Vol] 32.2 g/dL Normal 28.4-34.8 [facility] Comment on above: Performed By: #### C DP, BMP, LIPR, MG, GLYHGB #### [facility] [address] [place] [address] [employer] Operator: Zaki Humphries MD MCV (RBC) [Entitic vol] 92.4 fL Normal 82.6-102.9 [facility] Comment on above: Performed By: #### C DP, BMP, LIPR, MG, GLYHGB #### [facility] [address] [place] [address] [employer] Operator: Zaki Humphries MD NRBC Automated 0.0 per 100 WBC Normal 0.0 [facility] Comment on above: Performed By: #### C DP, BMP, LIPR, MG, GLYHGB #### [address] [address] [employer] Operator: Zaki Humphries MD Platelet mean volume (Bld) [Entitic vol] 10.1 fL Normal 8.1-13.5 [facility] Comment on above: Performed By: #### C DP, BMP, LIPR, MG, GLYHGB #### [facility] [address] [place] [address] [employer] Operator: Zaki Humphries MD Platelets (Bld) [#/Vol] 288 10*3/uL Normal 138-453 [facility] Comment on above: Performed By: #### C DP, BMP, LIPR, MG, GLYHGB #### [address] [address] [employer] Operator: Zaki Humphries MD RBC (Bld) [#/Vol] 4.60 10*6/uL Normal 3.95-5.11 [facility] Comment on above: Performed By: #### C DP, BMP, LIPR, MG, GLYHGB #### [address] [address] [employer] Operator: Zaki Humphries MD WBC (Bld) [#/Vol] 14.5 10*3/uL High 3.5-11.3 [facility] Comment on above: Performed By: #### C DP, BMP, LIPR, MG, GLYHGB #### [facility] [address] [place] [address] [employer] Operator: Zaki Humphries MD Erythrocyte distribution width (RBC) [Ratio] 13.2 % 11.8 - 14.4 % [place] Hematocrit (Bld) [Volume fraction] 42.5 % 36.3 - 47.1 % [place] Hemoglobin (Bld) [Mass/Vol] 13.7 g/dL 11.9 - 15.1 g/dL [place] Interpretation and review of laboratory results Abnormal [place] MCH (RBC) [Entitic mass] 29.8 pg 25.2 - 33.5 pg [place] MCHC (RBC) [Mass/Vol] 32.2 g/dL 28.4 - 34.8 g/dL [place] MCV (RBC) [Entitic vol] 92.4 fL 82.6 - 102.9 fL [place] Platelet mean volume (Bld) [Entitic vol] 10.1 fL 8.1 - 13.5 fL [place] Platelets (Bld) [#/Vol] 288 10*3/uL [place] RBC (Bld) [#/Vol] 4.60 10*6/uL 3.95 - 5.1 1 m/uL [place] WBC (Bld) [#/Vol] 0.0 10*3/uL 0.0 per 10 0 WBC [place] WBC (Bld) [#/Vol] 14.5 10*3/uL High [place] CSF Cell Counton 05-25-2019 Appearance (U) SLIGHTLY BLOODY Normal [facility] Comment on above: Performed By: #### C DP, BMP, LIPR, MG, GLYHGB #### [facility] [address] [place] [address] [phone] [employer] Operator: Zaki Humphries MD RBC (Bld) [#/Vol] 29915 /mm3 High 0 [facility] Comment on above: Performed By: #### C DP, BMP, LIPR, MG, GLYHGB #### [facility] [address] [place] [address] [phone] [employer] Operator: Zaki Humphries MD Tube Number 3 Normal [facility] Comment on above: Performed By: #### C DP, BMP, LIPR, MG, GLYHGB #### [facility] [address] [place] [address] [phone] [employer] Operator: Zaki Humphries MD WBC (Bld) [#/Vol] 92 /mm3 High <5 [facility] Comment on above: Performed By: #### C DP, BMP, LIPR, MG, GLYHGB #### [facility] [address] [place] [address] [employer] Operator: Zaki Humphries MD Xanthochromia PRESENT Normal [facility] Comment on above: Performed By: #### C DP, BMP, LIPR, MG, GLYHGB #### [facility] [address] [place] [address] [employer] Operator: Zaki Humphries MD Color (U) NOT REPORTED Normal [facility] Comment on above: Performed By: #### C DP, BMP, LIPR, MG, GLYHGB #### [facility] [address] [place] [address] [employer] Operator: Zaki Humphries MD Volume 5 Normal [facility] Comment on above: Performed By: #### C DP, BMP, LIPR, MG, GLYHGB #### [facility] [address] [place] [address] [employer] Operator: Zaki Humphries MD CSF Cell Count with Travis clark 05-25-2019 Appearance, CSF SLIGHTLY BLOODY [facility] Interpretation and review of laboratory results Abnormal [facility] RBC, CSF [address] /mm3 High 0 [facility] Supernatant Color, CSF NOT REPORTED [facility] Tube Number, CSF 3 [facility] [place] Volume, CSF 5 [facility] WBC (Bld) [#/Vol] 92 /mm3 High <5 [facility]- [place] Xanthochromia PRESENT [facility] [place] CSF Differentialon 0 Lymphocytes/100 WBC (Bld) 92 % Normal [facility] Comment on above: Result Comment: The reference range and other method performance specifications have not been established for this body fluid. The test result must be integrated into the clinical context for interpretation. Performed By: #### C DP, BMP, LIPR, MG, GLYHGB #### [facility] [address] [place] [address] [employer] Operator: Zaki Humphries MD Neutrophils/100 WBC (Bld) 1 % Normal [facility] Comment on above: Result Comment: The reference range and other method performance specifications have not been established for this body fluid. The test result must be integrated into the clinical context for interpretation. Performed By: #### C DP, BMP, LIPR, MG, GLYHGB #### [facility] [address] [place] [address] [employer] Operator: Zaki Humphries MD Bands NOT REPORTED Normal [facility] Comment on above: Performed By: #### C DP, BMP, LIPR, MG, GLYHGB #### [address] [address] [employer] Operator: Zaki Humphries MD Basophils/100 WBC (Bld) NOT REPORTED Normal [facility] Comment on above: Performed By: #### C DP, BMP, LIPR, MG, GLYHGB #### [facility] [address] [place] [address] [employer] Operator: Zaki Humphries MD Blast NOT REPORTED Normal [facility] Comment on above: Performed By: #### C DP, BMP, LIPR, MG, GLYHGB #### [facility] [address] [place] [address] [employer] Operator: Zaki Humphries MD Comment NOT REPORTED Normal [facility] Comment on above: Performed By: #### C DP, BMP, LIPR, MG, GLYHGB #### [facility] [address] [place] [address] [employer] Operator: Zaki Humphries MD Eosinophils (Bld) [#/Vol] NOT REPORTED Normal [facility] Comment on above: Performed By: #### C DP, BMP, LIPR, MG, GLYHGB #### [facility] [address] [place] [address] [employer] Batching Plant Operator: Zaki Humphries MD Metamyelocytes/100 WBC (Bld) NOT REPORTED Normal [facility] Comment on above: Performed By: #### C DP, BMP, LIPR, MG, GLYHGB #### [facility] [address] [place] [address] [employer]crete Batching Plant Operator: Zaki Humphries MD Trinity/Macrophage NOT REPORTED Normal [facility] Comment on above: Performed By: #### C DP, BMP, LIPR, MG, GLYHGB #### [facility] [address] [place] [address] [employer] Batching Plant Operator: Zaki Humphries MD Myelocyte NOT REPORTED Normal [facility] Comment on above: Performed By: #### C DP, BMP, LIPR, MG, GLYHGB #### [facility] [address] [place] [address] [employer]crete Batching Plant Operator: Zaki Humphries MD Echo Completeon 05-25-2019 Juancarlos, pn Incoming Cardio Results From [facility]/ - 05/25/2019 6:26 PM EDT Transthoracic Echocardiography Report (TTE) Patient Name NATHANAEL Date of Study 05/25/2019 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 Procedure Date Date: 05/25/2019 Start: 04:30 PM Study Location: [facility] Technical Quality: Fair visualization History / Tech. 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 Procedure Date Date: 05/25/2019 Start: 04:30 PM Study Location: [facility] Technical Quality: Fair visualization History [...] Wall E' velocity:0.12 m/s Lateral Wall E/E':7.3 [place], [place] Glucose, CSFon 05-25-2019 Glucose, CSF 97 mg/dL High 40 - 70 mg/dL [facility], [place] Glucose,CSFon 05-25-2019 Glucose [Mass/Vol] 97 mg/dL High 40-70 [facility] Comment on above: Performed By: #### C DP, BMP, LIPR, MG, GLYHGB #### [facility] [address] [place] [address] Concrete Batching Plant Operator: Zaki Humphries MD Gram Stainon 05-25-2019 Microscopic observation Gram stain Nom (Unsp spec) Specimen Description .CSF Special Requests NOT REPORTED Direct Exam FEW MONONUCLEAR WHITE BLOOD CELLS SEEN NO BACTERIA SEEN Gram stain made from cytocentrifuged specimen. Organisms and cells will be concentrated. Report Status FINAL 05/25/2019 Normal [facility] Comment on above: Performed By: #### C DP, BMP, LIPR, MG, GLYHGB #### [facility] [address] [place] [address] Concrete Batching Plant Operator: Zaki Humphries MD Direct Exam Gram stain made from cytocentrifuged specimen. Organisms and cells will be concentrated. [place], [place] Direct Exam NO BACTERIA SEEN [place], [place] Direct Exam FEW MONONUCLEAR WHIT E BLOOD CELLS SEEN Abnormal [place] Interpretation and review of laboratory results Abnormal [place] Special Requests NOT REPORTED [place] Specimen Description .CSF [place] IR LUMBAR PUNCTURE FOR DIAGN OSISon 05-25-2019 IR LUMBAR PUNCTURE FOR DIAGNOSIS EXAMINATION: FLUOROSCOPIC GUIDED LUMBAR PUNCTURE 05/25/2019 12:01 pm HISTORY: ORDERING SYSTEM PROVIDED HISTORY: vasculitis TECHNOLOGIST PROVIDED HISTORY: vasculitis Subarachnoid hemorrhage, workup for subarachnoid hemorrhage FLUOROSCOPY DOSE AND TYPE OR TIME AND EXPOSURES: DAP 134 cGy cm squared PROCEDURE: SAP TECHNICAL DEVELOPER: Geraldine Husain MD Informed consent was obtained after the risks and benefits of the procedure were discussed with the patient and all questions were answered fully. [place] protocol was observed and a standard timeout [...] Geraldine Husain MD 05/25/19 Final result Normal [facility] Successful fluoroscopic-guided lumbar puncture. [place] Juancarlos, Mhpn Incoming Radiant Results From [facility] - 05/25/2019 2:58 PM EDT EXAMINATION: FLUOROSCOPIC GUIDED LUMBAR PUNCTURE 05/25/2019 12:01 pm HISTORY: ORDERING SYSTEM PROVIDED HISTORY: vasculitis TECHNOLOGIST PROVIDED HISTORY: vasculitis Subarachnoid hemorrhage, workup for subarachnoid hemorrhage FLUOROSCOPY DOSE AND TYPE OR TIME AND EXPOSURES: DAP 134 cGy cm squared PROCEDURE: SAP TECHNICAL DEVELOPER: Geraldine Husain MD Informed consent was obtained after the risks and benefits of the procedure were discussed with the patient and all questions were answered fully. [place] protocol was observed and a standard timeout [...] procedure well. IMPRESSION: Successful fluoroscopic-guided lumbar puncture. [place] EXAMINATION: FLUOROSCOPIC GUIDED LUMBAR PUNCTURE 05/25/2019 12:01 pm HISTORY: ORDERING SYSTEM PROVIDED HISTORY: vasculitis TECHNOLOGIST PROVIDED HISTORY: vasculitis Subarachnoid hemorrhage, workup for subarachnoid hemorrhage FLUOROSCOPY DOSE AND TYPE OR TIME AND EXPOSURES: DAP 134 cGy cm squared PROCEDURE: SAP TECHNICAL DEVELOPER: Geraldine Husain MD Informed consent was obtained after the risks and benefits of the procedure were discussed with the patient and all questions were answered fully. [place] protocol was observed and a standard timeout [...] and the patient tolerated the procedure well. [place] Magnesiumon 05-25-2019 Magnesium [Mass/Vol] 2.4 mg/dL Normal 1.6-2.6 [facility] Comment on above: Performed By: #### C DP, BMP, LIPR, MG, GLYHGB #### [facility] [address] [place] [address] Concrete Batching Plant Operator: Zaki Humphries MD Magnesium [Mass/Vol] 2.4 mg/dL 1.6 - 2 .6 mg/dL [place] Otheron 05-25-2019 Interpretation and review of laboratory results Abnormal [place] POC Glucose Fingerstickon Glucose [Mass/Vol] 218 mg/dL High 65 - 105 mg/dL [place] Interpretation and review of laboratory results Abnormal [place] Glucose [Mass/Vol] 242 mg/dL High 65 - 105 mg/dL [place] Interpretation and review of laboratory results Abnormal [place] Glucose [Mass/Vol] 165 mg/dL High 65 - 105 mg/dL [place] Interpretation and review of laboratory results Abnormal [place] Protein, CSFon 05-25-2019 Protein, CSF 69.2 mg/dL High 15 - 45 mg/dL [facility] [place] Protein, Total, CSFon 2019 Total Protein - CSF 69.2 mg/dL High 15.0-45.0 [facility] Comment on above: Performed By: #### C DP, BMP, LIPR, MG, GLYHGB #### [facility] [address] [place] [address] Concrete Batching Plant Operator: Zaki Humphries MD RA Screenon 05-25-2019 RA Screen 123.0 IU/mL High <14 [facility] Comment on above: Performed By: #### D AU #### [address] [address] Concrete Batching Plant Operator: Zaki Humphries MD RHEUMATOID FACTORon 05-25-19 20 Interpretation and review of laboratory results Abnormal [place] Rheumatoid Factor 123 High <14 IU/mL [place], [place] Basic Metabolic Profon 05-23 (cont.) Normal [facility] Comment on above: Result Comment: Aver age GFR for 50-59 years old: 93 mL/min/1.73sq m Chronic Kidney Disease: <60 mL/min/1.73sq m Kidney failure: <15 mL/min/1.73sq m eGFR calculated using average adult body mass. Additional eGFR calculator available at: http://www.Receept.EnergyChest/multiple_crcl_2011.htm Performed By: #### C BC, BMP, MG ####[facility] [address] [place] [address] Lab Director: Zaki Humphries MD Anion gap [Moles/Vol] 12 mmol/L Normal 9-17 [facility] Comment on above: Performed By: #### C BC, BMP, MG ####[facility] [address] [place] [address] Lab Director: Zaki Humphries MD Calcium [Mass/Vol] 9.2 mg/dL Normal 8.6-10.4 [facility] Comment on above: Performed By: #### C BC, BMP, MG ####[facility] [address] [place] [address] Lab Director: Zaki Humphries MD Chloride [Moles/Vol] 104 mmol/L Normal 98-107 [facility] Comment on above: Performed By: #### C BC, BMP, MG ####[facility] [address] [place] [address] Lab Director: Zaki Humphries MD CO2 [Moles/Vol] 21 mmol/L Normal 20-31 [facility] Comment on above: Performed By: #### C BC, BMP, MG ####[facility] [address] [place], [place] [phone] Director: Zaki Humphries MD Creatinine [Mass/Vol] 0.65 mg/dL Normal 0.50-0.90 [facility] Comment on above: Performed By: #### C BC, BMP, MG ####[facility] [address] [place] [address] Lab Director: Zaki Humphries MD GFR, Amer >60 Normal >60 [facility] Comment on above: Performed By: #### C BC, BMP, MG ####[facility] [address] [place] [address] Lab Director: Zaki Humphries MD GFR,non Amer >60 Normal >60 [facility] Comment on above: Performed By: #### C BC, BMP, MG ####[facility] [address] [place], [place] [phone] Director: Zaki Humphries MD Glucose [Mass/Vol] 102 mg/dL High 70-99 [facility] Comment on above: Performed By: #### C BC, BMP, MG ####[facility] [address] [place], [place] [phone] Director: Zaki Humphries MD Potassium [Moles/Vol] 4.0 mmol/L Normal 3.7-5.3 [facility] Comment on above: Performed By: #### C BC, BMP, MG ####[facility] [address] [place], [place] [phone] Director: Zaki Humphries MD Sodium [Moles/Vol] 137 mmol/L Normal 135-144 [facility] Comment on above: Performed By: #### C BC, BMP, MG ####[facility] [address] [place] [address] Lab Director: Zaki Humphries MD Urea nitrogen [Mass/Vol] 17 mg/dL Normal 6-20 [facility] Comment on above: Performed By: #### C BC, BMP, MG ####[facility] [address] [place] [address] Lab Director: Zaki Humphries MD BUN/CRE Ratio NOT REPORTED Normal 9- [facility] Comment on above: Performed By: #### C BC, BMP, MG ####[facility] [address] [place], [place] [id number] Lab Director: Zaki Humphries MD Staging: NOT REPORTED Normal [facility] Comment on above: Performed By: #### C BC, BMP, MG ####[facility] [address] [place], [place] [phone] lab Director: Zaki Humphries MD Basic metabolic panelon 05-14 Anion gap [Moles/Vol] 12 mmol/L 9 - 17 mmol/L [place] Bun/Cre Ratio NOT REPORTED [place], [place] Calcium [Mass/Vol] 9.2 mg/dL 8.6 - 10. 4 mg/dL [place] Chloride [Moles/Vol] 104 mmol/L 98 - 10 7 mmol/L [place] CO2 [Moles/Vol] 21 mmol/L 20 - 31 mmol/L [place] Creatinine [Mass/Vol] 0.65 mg/dL 0.5 - 0.9 mg/dL [place] GFR >60 >60 mL/min [place] GFR Non- >60 >60 mL/min [place] GFR/1.73 sq M predicted among non-blacks MDRD (S/P/Bld) [Vol rate/Area] [place] Comment on above: Average GFR for 50-5 9 years old: 93 mL/min/1.73sq m Chronic Kidney Disease: <60 mL/min/1.73sq m Kidney failure: <15 mL/min/1.73sq m eGFR calculated using average adult body mass. Additional eGFR calculator available at: http://www.Receept.EnergyChest/multiple_crcl_2012.htm GFR/1.73 sq M predicted among non-blacks MDRD (S/P/Bld) [Vol rate/Area] NOT REPORTED [place] Glucose [Mass/Vol] 102 mg/dL High 70 - 99 mg/dL [facility], [place] Interpretation and review of laboratory results Abnormal [place] Potassium [Moles/Vol] 4.0 mmol/L 3.7 - 5.3 mmol/L [place] Sodium [Moles/Vol] 137 mmol/L 135 - 144 mmol/L [place] Urea nitrogen [Mass/Vol] 17 mg/dL 6 - 20 mg/dL [place] C-REACTIVE PROTEIN 020 CRP [Mass/Vol] 4.7 mg/L 0 - 5 mg/L [place], [place] C-Reactive Proteinon 020 CRP [Mass/Vol] 4.7 mg/L Normal 0.0-5.0 [facility] Comment on above: Performed By: #### D AU #### [address] [place], [place] [phone] Concrete Batching Plant Operator: Zaki Humphries MD C3on 05-24-2019 C3 140 mg/dL Normal 90-180 [facility] Comment on above: Performed By: #### C 3, C4, CRP, TSHX, PHEP, SED, RA, ANASCX, ANCACP, GBMG, APA, HIVX, CRYO ####[facility] [address] [place], [place] [phone] Lab Director: Zaki Humphries MD C3 COMPLEMENTon 05-24-2019 Complement C3 140 mg/dL 90 - 180 mg/dL [place] C4on 05-24-2019 C4 23 mg/dL Normal 10-40 [facility] Comment on above: Performed By: #### D AU #### [facility] [address] [place] [address] Concrete Batching Plant Operator: Zaki Humphries MD C4 COMPLEMENTon 05-24-2019 Complement C4 23 mg/dL 10 - 40 mg/dL [place] CBCon 05-24-2019 Erythrocyte distribution width (RBC) [Ratio] 13.1 % Normal 11.8-14.4 [facility] Comment on above: Performed By: #### C BC, BMP, MG ####[facility] [address] [place] [address] Lab Director: Zaki Humphries MD Hematocrit (Bld) [Volume fraction] 43.2 % Normal 36.3-47.1 [facility] Comment on above: Performed By: #### C BC, BMP, MG ####[facility] [address] [place], [place] [phone] Director: Zaki Humphries MD Hemoglobin (Bld) [Mass/Vol] 14.0 g/dL Normal 11.9-15.1 [facility] Comment on above: Performed By: #### C BC, BMP, MG ####[facility] [address] [place] [address] Lab Director: Zaki Humphries MD MCH (RBC) [Entitic mass] 30.2 pg Normal 25.2-33.5 [facility] Comment on above: Performed By: #### C BC, BMP, MG ####[facility] [address] [place] [address] Lab Director: Zaki Humphries MD MCHC (RBC) [Mass/Vol] 32.4 g/dL Normal 28.4-34.8 [facility] Comment on above: Performed By: #### C BC, BMP, MG ####[facility] [address] [place], [place] [phone] Director: Zaki Humphries MD MCV (RBC) [Entitic vol] 93.3 fL Normal 82.6-102.9 [facility] Comment on above: Performed By: #### C BC, BMP, MG ####[facility] [address] [place] [address] Lab Director: Zaki Humphries MD NRBC Automated 0.0 per 100 WBC Normal 0.0 [facility] Comment on above: Performed By: #### C BC, BMP, MG ####[facility] [address] [place] [address] Lab Director: Zaki Humphries MD Platelet mean volume (Bld) [Entitic vol] 9.3 fL Normal 8.1-13.5 [facility] Comment on above: Performed By: #### C BC, BMP, MG ####[facility] [address] [place] [address] Lab Director: Zaki Humphries MD Platelets (Bld) [#/Vol] 262 10*3/uL Normal 138-453 [facility] Comment on above: Performed By: #### C LAURA BMP, MG ####[facility] [address] [place] [address] Lab Director: Zaki Humphries MD RBC (Bld) [#/Vol] 4.63 10*6/uL Normal 3.95-5.11 [facility] Comment on above: Performed By: #### C LAURA, BMP, MG ####[facility] [address] [place] [address] Lab Director: Zaki Humphries MD WBC (Bld) [#/Vol] 11.0 10*3/uL Normal 3.5-11.3 [facility] Comment on above: Performed By: #### C BC, BMP, MG ####[facility] [address] [place] [address] Lab Director: Zaki Humphries MD Erythrocyte distribution width (RBC) [Ratio] 13.1 % 11.8 - 14.4 % [place] Hematocrit (Bld) [Volume fraction] 43.2 % 36.3 - 47.1 % [place] Hemoglobin (Bld) [Mass/Vol] 14.0 g/dL 11.9 - 15.1 g/dL [place] MCH (RBC) [Entitic mass] 30.2 pg 25.2 - 33.5 pg [place] MCHC (RBC) [Mass/Vol] 32.4 g/dL 28.4 - 34.8 g/dL [place] MCV (RBC) [Entitic vol] 93.3 fL 82.6 - 102.9 fL [place] Platelet mean volume (Bld) [Entitic vol] 9.3 fL 8.1 - 13.5 fL [place] Platelets (Bld) [#/Vol] 262 10*3/uL [place] RBC (Bld) [#/Vol] 4.63 10*6/uL 3.95 - 5.1 1 m/uL [place] WBC (Bld) [#/Vol] 0.0 10*3/uL 0.0 per 10 0 WBC [place] WBC (Bld) [#/Vol] 11.0 10*3/uL [place] DNA Testingon 05-24-2019 DNA Testing (NOTE) Specimen(s) Received: Peripheral blood, [facility] Clinical Information: TIA RESULTS: MOLECULAR GENETIC DIAGNOSIS: Negative for Factor V Leiden Mutation INTERPRETATION: The Factor V Leiden mutation (1691GA) [c.1601G>A(p.Que256Ycf )] was not detected in this study. This patient may, however, still be at risk for venous thrombosis due to another genetic predisposition including the Factor II (Prothrombin 31681RG) mutation or either of the 5, 10-methylenetetrahydro folate reductase (MTHFR) mutations (677T and P4942F) Additional molecular testing is available for these [...] which predicts a single amino acid replacement ([id number]) at one of three activated protein C [...] the Invader Factor V test that utilizes Reading Trails chemistry for detecting gene-specific sequences. Target amplification [...] Invader and Cleavase are registered trademarks of [employer] This test is performed pursuant to an agreement with [employer] Electronically Signed Out Archie Robison M.D. [facility] [employer] [facility] [address] [place] [phone] FACTOR V LEIDEN MUTATION ANALYSIS REPORT [place] [facility] Jorge Wilde MD, Archie Robison MD [facility] Comment on above: Performed By: #### C DP, BMP, LIPR, MG, GLYHGB #### [facility] [address] [phone] [employer]crete Batching Plant Operator: Zaki Humphries MD HEPATITIS PANEL, [facility] HAV IgM IA Qn (S) NONREACTIVE NONREACTIVE [facility], [place] Hep B Core Ab, IgM NONREACTIVE NONREACTIVE [facility], [place] Hepatitis B Surface Ag NONREACTIVE NONREACTIVE [facility], [place] Hepatitis C Ab NONREACTIVE NONREACTIVE [facility], [place] Comment on above: The hepatitis C procedure [...] ordering HCV RNA by PCR. Hepatitis Acute [facility] 05-23 Hep A Ab,IgM NONREACTIVE Normal NR [facility] Comment on above: Performed By: #### D AU #### [facility] [address] [place] [address] Concrete Batching Plant Operator: Zaki Humphries MD Hep B Core Ab,IgM NONREACTIVE Normal [facility] Comment on above: Performed By: #### D AU #### [facility] [address] [place] [address] [phone] [employer] Batching Plant Operator: Zaki Humphries MD Hep B Surf Ag NONREACTIVE Normal [facility] Comment on above: Performed By: #### D AU #### [facility] [address] [place] [address] Concrete Batching Plant Operator: Zaki Humphries MD Hep C Ab NONREACTIVE Normal [facility] Comment on above: Result Comment: The [...] By: #### D AU #### [facility] [address] [place] [address] [phone] Concrete Batching Plant Operator: Zaki Humphries MD Magnesiumon 05-24-2019 Magnesium [Mass/Vol] 2.4 mg/dL Normal 1.6-2.6 [facility] Comment on above: Performed By: #### C BC, BMP, MG ####[facility] [address] [place], [place] [phone] Lab Director: Zaki Humphries MD Magnesium [Mass/Vol] 2.4 mg/dL 1.6 - 2 .6 mg/dL [place] POC Glucose Fingerstickon Glucose [Mass/Vol] 190 mg/dL High 65 - 105 mg/dL [place] Interpretation and review of laboratory results Abnormal [place] Glucose [Mass/Vol] 170 mg/dL High 65 - 105 mg/dL [place] Interpretation and review of laboratory results Abnormal [place] Glucose [Mass/Vol] 85 mg/dL 65 - 105 mg/dL [place] Sedimentation Rateon 020 Sedimentation Rate 10 mm Normal 0-20 [facility] Comment on above: Performed By: #### D AU #### [facility] [address] [place] [address] [employer]crete Batching Plant Operator: Zaki Humphries MD Sed Rate 10 mm 0 - 20 mm [place] TSH w/reflex to FT4on 2019 TSH Qn 3.52 m[IU]/L Normal 0.30-5.00 [facility] Comment on above: Performed By: #### D AU #### [facility] [address] [place], [place] [phone] [employer]crete Batching Plant Operator: Zaki Humphries MD TSH with Reflexon 05-24-2019 TSH Qn 3.52 m[IU]/L [place] XR CHEST PORTABLEon 05-24-19 20 XR CHEST PORTABLE EXAMINATION: ONE XRAY VIEW OF THE CHEST 05/24/2019 2:14 pm COMPARISON: Chest radiograph performed 05/22/2019. HISTORY: ORDERING SYSTEM PROVIDED HISTORY: timoteo weeks TECHNOLOGIST PROVIDED HISTORY: cough Reason for Exam: supine port Acuity: Unknown [...] Suresh Sanderson MD 05/24/19 Final result Normal [facility] No acute cardiopulmonary process. [place] EXAMINATION: ONE XRA Y VIEW OF THE CHEST 05/24/2019 2:14 pm COMPARISON: Chest radiograph performed 05/22/2019. HISTORY: ORDERING SYSTEM PROVIDED HISTORY: timoteo crawford TECHNOLOGIST PROVIDED HISTORY: timoteo crawford Reason for Exam: supine port Acuity: Unknown Type of Exam: Unknown FINDINGS: There is no acute consolidation or effusion. There is no pneumothorax. The mediastinal structures are unremarkable. The upper abdomen is unremarkable. The extrathoracic soft tissues are unremarkable. There is no acute osseous abnormality. [place] Juancarlos, Mhpn Incoming Radiant Results From [email or web address] - 05/24/2019 2:28 PM EDT EXAMINATION: ONE XRAY VIEW OF THE CHEST 05/24/2019 2:14 pm COMPARISON: Chest radiograph performed 05/22/2019. HISTORY: ORDERING SYSTEM PROVIDED HISTORY: timoteo crawford TECHNOLOGIST PROVIDED HISTORY: bess Reason for Exam: supine port Acuity: Unknown Type of Exam: Unknown FINDINGS: There is no acute consolidation or effusion. There is no pneumothorax. The mediastinal structures are unremarkable. The upper abdomen is unremarkable. The extrathoracic soft tissues are unremarkable. There is no acute osseous abnormality. IMPRESSION: No acute cardiopulmonary process. [facility] [place] APTTon 05-23-2019 aPTT Coag (Bld) [Time] 24.3 s Normal 20.5-30.5 [facility] Comment on above: Performed By: #### P TT, PT ####[id number] [place] [address] lab Director: Zaki Humphries MD aPTT Coag (Bld) [Time] 24.3 s [facility] [place] BASIC METABOLIC PANELon Anion gap [Moles/Vol] 13 mmol/L 9 - 17 mmol/L [place] Bun/Cre Ratio NOT REPORTED [facility] [place] Calcium [Mass/Vol] 9.3 mg/dL 8.6 - 10. 4 mg/dL [place] Chloride [Moles/Vol] 98 mmol/L 98 - 10 7 mmol/L [place] CO2 [Moles/Vol] 23 mmol/L 20 - 31 mmol/L [place] Creatinine [Mass/Vol] 0.63 mg/dL 0.5 - 0.9 mg/dL [place] GFR >60 >60 mL/min [place] GFR Non- >60 >60 mL/min [place] GFR/1.73 sq M predicted among non-blacks MDRD (S/P/Bld) [Vol rate/Area] [place] Comment on above: Average GFR for 50-5 9 years old: 93 mL/min/1.73sq m Chronic Kidney Disease: <60 mL/min/1.73sq m Kidney failure: <15 mL/min/1.73sq m eGFR calculated using average adult body mass. Additional eGFR calculator available at: http://www.iCoolhunt/multiple_crcl_2012.htm GFR/1.73 sq M predicted among non-blacks MDRD (S/P/Bld) [Vol rate/Area] NOT REPORTED [place] Glucose [Mass/Vol] 110 mg/dL High 70 - 99 mg/dL [place] Potassium [Moles/Vol] 3.4 mmol/L Low 3.7 - 5.3 mmol/L [place] Sodium [Moles/Vol] 134 mmol/L Low 135 - 144 mmol/L [place] Urea nitrogen [Mass/Vol] 16 mg/dL 6 - 20 mg/dL [place] Basic Metabolic Profon 05-22 (cont.) Normal [facility] Comment on above: Result Comment: Aver age GFR for 50-59 years old: 93 mL/min/1.73sq m Chronic Kidney Disease: <60 mL/min/1.73sq m Kidney failure: <15 mL/min/1.73sq m eGFR calculated using average adult body mass. Additional eGFR calculator available at: http://www.iCoolhunt/multiple_crcl_2012.htm Performed By: #### C BC, BMP, MG #### [facility] [facility] [address] [place] [address] [employer] Operator: Zaki Humphries MD Anion gap [Moles/Vol] 13 mmol/L Normal 9-17 [facility] Comment on above: Performed By: #### C BC, BMP, MG #### [facility] [address] [place] [address] [employer] Operator: Zaki Humphries MD Calcium [Mass/Vol] 9.2 mg/dL Normal 8.6-10.4 [facility] Comment on above: Performed By: #### C BC, BMP, MG #### [facility] [address] [place] [address] [employer] Operator: Zaki Humphries MD Chloride [Moles/Vol] 99 mmol/L Normal 98-107 [facility] Comment on above: Performed By: #### C BC, BMP, MG #### [facility] [address] [place] [address] [employer] Operator: Zaki Humphries MD CO2 [Moles/Vol] 24 mmol/L Normal 20-31 [facility] Comment on above: Performed By: #### C BC, BMP, MG #### [facility] [address] [place] [address] [employer] Operator: Zaki Humphries MD Creatinine [Mass/Vol] 0.72 mg/dL Normal 0.50-0.90 [facility] Comment on above: Performed By: #### C BC, BMP, MG #### [facility] [address] [place] [address] [employer] Operator: Zaki Humphries MD GFR, Amer >60 Normal >60 [facility] Comment on above: Performed By: #### C BC, BMP, MG #### [facility] [address] [place] [address] [employer] Operator: Zaki Humphries MD GFR,non Amer >60 Normal >60 [facility] Comment on above: Performed By: #### C BC, BMP, MG #### [facility] [address] [place] [address] [employer] Operator: Zaki Humphries MD Glucose [Mass/Vol] 99 mg/dL Normal 70-99 [facility] Comment on above: Performed By: #### C BC, BMP, MG #### [address] [address] [employer] Operator: Zaki Humphries MD Potassium [Moles/Vol] 3.9 mmol/L Normal 3.7-5.3 [facility] Comment on above: Performed By: #### C BC, BMP, MG #### [address] [address] [employer] Operator: Zaki Humphries MD Sodium [Moles/Vol] 136 mmol/L Normal 135-144 [facility] Comment on above: Performed By: #### C BC, BMP, MG #### [facility] [address] [place] [address] [employer] Operator: Zaki Humphries MD Urea nitrogen [Mass/Vol] 15 mg/dL Normal 6-20 [facility] Comment on above: Performed By: #### C BC, BMP, MG #### [facility] [address] [place] [address] [employer] Operator: Zaki Humphries MD BUN/CRE Ratio NOT REPORTED Normal 9-20 [facility] Comment on above: Performed By: #### C BC, BMP, MG #### [address] [address] [employer] Operator: Zaki Humphries MD Staging: NOT REPORTED Normal [facility] Comment on above: Performed By: #### C BC, BMP, MG #### [address] [address] [employer] Operator: Zaki Humphries MD (cont.) Normal [facility] Comment on above: Result Comment: Aver age GFR for 50-59 years old: 93 mL/min/1.73sq m Chronic Kidney Disease: <60 mL/min/1.73sq m Kidney failure: <15 mL/min/1.73sq m eGFR calculated using average adult body mass. Additional eGFR calculator available at: http://www.iCoolhunt/multiple_crcl_2012.htm Performed By: #### C DP, BMP, LIPR, MG, GLYHGB #### [address] [address] [employer] Operator: Zaki Humphries MD Anion gap [Moles/Vol] 13 mmol/L Normal 9-17 [facility] Comment on above: Performed By: #### C DP, BMP, LIPR, MG, GLYHGB #### [address] [address] [employer] Operator: Zaki Humphries MD Calcium [Mass/Vol] 9.3 mg/dL Normal 8.6-10.4 [facility] Comment on above: Performed By: #### C DP, BMP, LIPR, MG, GLYHGB #### [address] [address] [employer] Operator: Zaki Humphries MD Chloride [Moles/Vol] 98 mmol/L Normal 98-107 [facility] Comment on above: Performed By: #### C DP, BMP, LIPR, MG, GLYHGB #### [facility] [address] [place] [address] [employer] Operator: Zaki Humphries MD CO2 [Moles/Vol] 23 mmol/L Normal 20-31 [facility] Comment on above: Performed By: #### C DP, BMP, LIPR, MG, GLYHGB #### [address] [address] [employer] Operator: Zaki Humphries MD Creatinine [Mass/Vol] 0.63 mg/dL Normal 0.50-0.90 [facility] Comment on above: Performed By: #### C DP, BMP, LIPR, MG, GLYHGB #### [address] [address] [employer] Operator: Zaki Humphries MD GFR, Amer >60 Normal >60 [facility] Comment on above: Performed By: #### C DP, BMP, LIPR, MG, GLYHGB #### [address] [address] [employer] Operator: Zaki Humphries MD GFR,non Amer >60 Normal >60 [facility] Comment on above: Performed By: #### C DP, BMP, LIPR, MG, GLYHGB #### [address] [address] [employer] Operator: Zaki Humphries MD Glucose [Mass/Vol] 110 mg/dL High 70-99 [facility] Comment on above: Performed By: #### C DP, BMP, LIPR, MG, GLYHGB #### [address] [address] [employer] Operator: Zaki Humphries MD Potassium [Moles/Vol] 3.4 mmol/L Low 3.7-5.3 [facility] Comment on above: Performed By: #### C DP, BMP, LIPR, MG, GLYHGB #### [address] [id number] [employer] Operator: Zaki Humphries MD Sodium [Moles/Vol] 134 mmol/L Low 135-144 [facility] Comment on above: Performed By: #### C DP, BMP, LIPR, MG, GLYHGB #### [facility] [address] [place] [address] [employer] Operator: Zaki Humphries MD Urea nitrogen [Mass/Vol] 16 mg/dL Normal -20 [facility] Comment on above: Performed By: #### C DP, BMP, LIPR, MG, GLYHGB #### [facility] [address] [place] [address] [employer] Operator: Zaki Humphries MD BUN/CRE Ratio NOT REPORTED Normal - [facility] Comment on above: Performed By: #### C DP, BMP, LIPR, MG, GLYHGB #### [facility] [address] [place] [address] [employer] Operator: Zaki Humphries MD Staging: NOT REPORTED Normal [facility] Comment on above: Performed By: #### C DP, BMP, LIPR, MG, GLYHGB #### [facility] [address] [place] [address] [employer] Operator: Zaki Humphries MD Basic metabolic panelon -0 Anion gap [Moles/Vol] 13 mmol/L 9 - 17 mmol/L [place] Bun/Cre Ratio NOT REPORTED [place], [place] Calcium [Mass/Vol] 9.2 mg/dL 8.6 - 10. 4 mg/dL [place] Chloride [Moles/Vol] 99 mmol/L 98 - 10 7 mmol/L [place] CO2 [Moles/Vol] 24 mmol/L 20 - 31 mmol/L [place] Creatinine [Mass/Vol] 0.72 mg/dL 0.5 - 0.9 mg/dL [place] GFR >60 >60 mL/min [place] GFR Non- >60 >60 mL/min [place] GFR/1.73 sq M predicted among non-blacks MDRD (S/P/Bld) [Vol rate/Area] [place] Comment on above: Average GFR for 50-5 9 years old: 93 mL/min/1.73sq m Chronic Kidney Disease: <60 mL/min/1.73sq m Kidney failure: <15 mL/min/1.73sq m eGFR calculated using average adult body mass. Additional eGFR calculator available at: http://www.iCoolhunt/multiple_crcl_2012.htm GFR/1.73 sq M predicted among non-blacks MDRD (S/P/Bld) [Vol rate/Area] NOT REPORTED [place] Glucose [Mass/Vol] 99 mg/dL 70 - 99 mg/dL [place] Potassium [Moles/Vol] 3.9 mmol/L 3.7 - 5.3 mmol/L [place] Sodium [Moles/Vol] 136 mmol/L 135 - 144 mmol/L [place] Urea nitrogen [Mass/Vol] 15 mg/dL 6 - 20 mg/dL [place] CBCon 05-23-2019 Erythrocyte distribution width (RBC) [Ratio] 13.2 % Normal 11.8-14.4 [facility] Comment on above: Performed By: #### C KATHY SANCHEZ MG #### [facility] [address] [place] [address] [employer] Operator: Zaki Humphries MD Hematocrit (Bld) [Volume fraction] 47.1 % Normal 36.3-47.1 [facility] Comment on above: Performed By: #### C KATHY SANCHEZ MG #### [facility] [address] [place] [address] [employer] Operator: Zaki Humphries MD Hemoglobin (Bld) [Mass/Vol] 15.0 g/dL Normal 11.9-15.1 [facility] Comment on above: Performed By: #### C BC, BMP, MG #### [facility] [address] [place] [address] [employer] Operator: Zaki Humphries MD MCH (RBC) [Entitic mass] 29.6 pg Normal 25.2-33.5 [facility] Comment on above: Performed By: #### C BC, BMP, MG #### [facility] [address] [place] [address] [employer] Operator: Zaki Humphries MD MCHC (RBC) [Mass/Vol] 31.8 g/dL Normal 28.4-34.8 [facility] Comment on above: Performed By: #### C BC, BMP, MG #### [facility] [address] [place] [address] [employer] Operator: Zaki Humphries MD MCV (RBC) [Entitic vol] 92.9 fL Normal 82.6-102.9 [facility] Comment on above: Performed By: #### C BC, BMP, MG #### [facility] [address] [place] [address] [employer] Operator: Zaki Humphries MD NRBC Automated 0.0 per 100 WBC Normal 0.0 [facility] Comment on above: Performed By: #### C BC BMP, MG #### [facility] [address] [place] [address] [employer] Operator: Zaki Humphries MD Platelet mean volume (Bld) [Entitic vol] 9.6 fL Normal 8.1-13.5 [facility] Comment on above: Performed By: #### C BC, BMP, MG #### [facility] [address] [place] [address] [employer] Operator: Zaki Humphries MD Platelets (Bld) [#/Vol] 300 10*3/uL Normal 138-453 [facility] Comment on above: Performed By: #### C BC, BMP, MG #### [facility] [address] [place] [address] [employer] Operator: Zaki Humphries MD RBC (Bld) [#/Vol] 5.07 10*6/uL Normal 3.95-5.11 [facility] Comment on above: Performed By: #### C LAURA BMP, MG #### [facility] [address] [place] [address] [employer] Operator: Zaki Humphries MD WBC (Bld) [#/Vol] 14.1 10*3/uL High 3.5-11.3 [facility] Comment on above: Performed By: #### C KATHY SANCHEZ, MG #### [facility] [address] [place] [address] [employer] Operator: Zaki Humphries MD Erythrocyte distribution width (RBC) [Ratio] 13.2 % 11.8 - 14.4 % [place] Hematocrit (Bld) [Volume fraction] 47.1 % 36.3 - 47.1 % [place] Hemoglobin (Bld) [Mass/Vol] 15.0 g/dL 11.9 - 15.1 g/dL [place] Interpretation and review of laboratory results Abnormal [place] MCH (RBC) [Entitic mass] 29.6 pg 25.2 - 33.5 pg [place] MCHC (RBC) [Mass/Vol] 31.8 g/dL 28.4 - 34.8 g/dL [place] MCV (RBC) [Entitic vol] 92.9 fL 82.6 - 102.9 fL [place] Platelet mean volume (Bld) [Entitic vol] 9.6 fL 8.1 - 13.5 fL [place] Platelets (Bld) [#/Vol] 300 10*3/uL [place] RBC (Bld) [#/Vol] 5.07 10*6/uL 3.95 - 5.1 1 m/uL [place] WBC (Bld) [#/Vol] 0.0 10*3/uL 0.0 per 10 0 WBC [place] WBC (Bld) [#/Vol] 14.1 10*3/uL [place] CBC WITH AUTO DIFFERENTIALon 05-23-2019 Basophils (Bld) [#/Vol] 0.09 10*3/uL [place] Basophils/100 WBC (Bld) 1 % 0 - 2 % [place] Differential Type NOT REPORTED [place] Eosinophils (Bld) [#/Vol] 0.16 10*3/uL [place] Eosinophils/100 WBC (Bld) 1 % 1 - 4 % [place] Erythrocyte distribution width (RBC) [Ratio] 13.2 % 11.8 - 14.4 % [place] Hematocrit (Bld) [Volume fraction] 47.0 % 36.3 - 47.1 % [place] Hemoglobin (Bld) [Mass/Vol] 14.8 g/dL 11.9 - 15.1 g/dL [place] Immature granulocytes (Bld) [#/Vol] 0.11 10*3/uL [place] Immature granulocytes (Bld) [#/Vol] 1 % High 0 [place] Interpretation and review of laboratory results Abnormal [place] Lymphocytes (Bld) [#/Vol] 4.10 10*3/uL [place] Lymphocytes/100 WBC (Bld) 26 % 24 - 43 % [place] MCH (RBC) [Entitic mass] 29.6 pg 25.2 - 33.5 pg [place] MCHC (RBC) [Mass/Vol] 31.5 g/dL 28.4 - 34.8 g/dL [place] MCV (RBC) [Entitic vol] 94.0 fL 82.6 - 102.9 fL [place] Monocytes (Bld) [#/Vol] 1.05 10*3/uL [place] Monocytes/100 WBC (Bld) 7 % 3 - 12 % [place] Platelet mean volume (Bld) [Entitic vol] 9.3 fL 8.1 - 13.5 fL [place] Platelets (Bld) [#/Vol] 296 10*3/uL [place] Platelets (Bld) [#/Vol] NOT REPORTED [place] RBC (Bld) [#/Vol] 5.00 10*6/uL 3.95 - 5.1 1 m/uL [place] RBC morphology finding Nom (Bld) NOT REPORTED [place] Segmented neutrophils/100 WBC (Bld) 64 % 36 - 65 % [place] Segs Absolute 10.39 [place] WBC (Bld) [#/Vol] 0.0 10*3/uL 0.0 per 10 0 WBC [place] WBC (Bld) [#/Vol] 15.9 10*3/uL [place] WBC Morphology NOT REPORTED [place] CBC with Diffon 05-23-2019 Abs. Basophil 0.09 k/uL Normal 0.00-0.20 [facility] Comment on above: Performed By: #### C DP, BMP, LIPR, MG, GLYHGB #### [facility] [address] [place] [address] [employer] Operator: Zaki Humphries MD Abs.Imm.Granulocyte 0.11 k/uL Normal 0.00-0.30 [facility] Comment on above: Performed By: #### C DP, BMP, LIPR, MG, GLYHGB #### [facility] [place] [address] [employer] Operator: Zaki Humphries MD Abs.Neutrophil (Seg) 10.39 k/uL High 1.50-8.10 [facility] Comment on above: Performed By: #### C DP, BMP, LIPR, MG, GLYHGB #### [facility] [address] [place] [address] [employer] Operator: Zaki Humphries MD Basophils/100 WBC (Bld) 1 % Normal 0-2 [facility] Comment on above: Performed By: #### C DP, BMP, LIPR, MG, GLYHGB #### [facility] [address] [place] [address] [employer] Operator: Zaki Humphries MD Eosinophils (Bld) [#/Vol] 0.16 10*3/uL Normal 0.00-0.44 [facility] Comment on above: Performed By: #### C DP, BMP, LIPR, MG, GLYHGB #### [place] [address] [employer] Operator: Zaki Humphries MD Eosinophils/100 WBC (Bld) 1 % Normal 1-4 [facility] Comment on above: Performed By: #### C DP, BMP, LIPR, MG, GLYHGB #### [place] [address] [employer] Operator: Zaki Humphries MD Erythrocyte distribution width (RBC) [Ratio] 13.2 % Normal 11.8-14.4 [facility] Comment on above: Performed By: #### C DP, BMP, LIPR, MG, GLYHGB #### [facility] [address] [place] [address] [employer] Operator: Zaki Humphries MD Hematocrit (Bld) [Volume fraction] 47.0 % Normal 36.3-47.1 [facility] Comment on above: Performed By: #### C DP, BMP, LIPR, MG, GLYHGB #### [place] [address] [employer] Operator: Zaki Humphries MD Hemoglobin (Bld) [Mass/Vol] 14.8 g/dL Normal 11.9-15.1 [facility] Comment on above: Performed By: #### C DP, BMP, LIPR, MG, GLYHGB #### [address] [address] [employer] Operator: Zaki Humphries MD Immature granulocytes (Bld) [#/Vol] 1 % High 0 [facility] Comment on above: Performed By: #### C DP, BMP, LIPR, MG, GLYHGB #### [address] [address] [employer] Operator: Zaki Humphries MD Lymphocytes (Bld) [#/Vol] 4.10 10*3/uL High 1.10-3.70 [facility] Comment on above: Performed By: #### C DP, BMP, LIPR, MG, GLYHGB #### [address] [address] [employer] Operator: Zaki Humphries MD Lymphocytes/100 WBC (Bld) 26 % Normal 24-43 [facility] Comment on above: Performed By: #### C DP, BMP, LIPR, MG, GLYHGB #### [address] [address] [employer] Operator: Zaki Humphries MD MCH (RBC) [Entitic mass] 29.6 pg Normal 25.2-33.5 [facility] Comment on above: Performed By: #### C DP, BMP, LIPR, MG, GLYHGB #### [address] [address] [employer] Operator: Zaki Humphries MD MCHC (RBC) [Mass/Vol] 31.5 g/dL Normal 28.4-34.8 [facility] Comment on above: Performed By: #### C DP, BMP, LIPR, MG, GLYHGB #### [address] [address] [employer] Operator: Zaki Humphries MD MCV (RBC) [Entitic vol] 94.0 fL Normal 82.6-102.9 [facility] Comment on above: Performed By: #### C DP, BMP, LIPR, MG, GLYHGB #### [place] [address] [employer] Operator: Zaki Humphries MD Monocytes (Bld) [#/Vol] 1.05 10*3/uL Normal 0.10-1.20 [facility] Comment on above: Performed By: #### C DP, BMP, LIPR, MG, GLYHGB #### [place] [address] [employer] Operator: Zaki Humphries MD Monocytes/100 WBC (Bld) 7 % Normal 3-12 [facility] Comment on above: Performed By: #### C DP, BMP, LIPR, MG, GLYHGB #### [place] [address] [employer] Operator: Zaki Humphries MD Neutrophil (Seg) 64 % Normal 36-65 [facility] Comment on above: Performed By: #### C DP, BMP, LIPR, MG, GLYHGB #### [place] [address] [employer] Operator: Zaki Humphries MD NRBC Automated 0.0 per 100 WBC Normal 0.0 [facility] Comment on above: Performed By: #### C DP, BMP, LIPR, MG, GLYHGB #### [place] [address] [employer] Operator: Zaki Humphries MD Platelet mean volume (Bld) [Entitic vol] 9.3 fL Normal 8.1-13.5 [facility] Comment on above: Performed By: #### C DP, BMP, LIPR, MG, GLYHGB #### [address] [address] [employer] Operator: Zaki Humphries MD Platelets (Bld) [#/Vol] 296 10*3/uL Normal 138-453 [facility] Comment on above: Performed By: #### C DP, BMP, LIPR, MG, GLYHGB #### [address] [address] [employer] Operator: Zaki Humphries MD RBC (Bld) [#/Vol] 5.00 10*6/uL Normal 3.95-5.11 [facility] Comment on above: Performed By: #### C DP, BMP, LIPR, MG, GLYHGB #### [address] [address] [employer] Operator: Zaki Humphries MD WBC (Bld) [#/Vol] 15.9 10*3/uL High 3.5-11.3 [facility] Comment on above: Performed By: #### C DP, BMP, LIPR, MG, GLYHGB #### [address] [address] [employer] Operator: Zaki Humphries MD Auto Diff Performed NOT REPORTED Normal [facility] Comment on above: Performed By: #### C DP, BMP, LIPR, MG, GLYHGB #### [address] [address] [employer] Operator: Zaki Humphries MD Platelets (Bld) [#/Vol] NOT REPORTED Normal [facility] Comment on above: Performed By: #### C DP, BMP, LIPR, MG, GLYHGB #### [facility] [address] [place] [address] [employer] Operator: Zaki Humphries MD RBC morphology finding Nom (Bld) NOT REPORTED Normal [facility] Comment on above: Performed By: #### C DP, BMP, LIPR, MG, GLYHGB #### [facility] [address] [place] [address] [employer] Operator: Zaki Humphries MD WBC Morphology NOT REPORTED Normal [facility] Comment on above: Performed By: #### C DP, BMP, LIPR, MG, GLYHGB #### [address] [address] [employer] Operator: Zaki Humphries MD Drug Scr, Abuse, Uron 2019 Amphetamine(s),Ur Negative Normal NEG [facility] Comment on above: Result Comment: (Positive cutoff 1000 ng/mL) Performed By: #### D AU #### [address] [address] [employer] Operator: Zaki Humphries MD Barbiturate(s),Ur Negative Normal NEG [facility] Comment on above: Result Comment: (Positive cutoff 200 ng/mL) Performed By: #### D AU #### [address] [address] [employer] Operator: Zaki Humphries MD Base excess Calc (Bld) [Moles/Vol] Negative Normal NEG [facility] Comment on above: Result Comment: (Positive cutoff 300 ng/mL) Performed By: #### D AU #### [address] [address] [employer] Operator: Zaki Humphries MD Benzodiazepine(s) Negative Normal NEG [facility] Comment on above: Result Comment: (Positive cutoff 200 ng/mL) Performed By: #### D AU #### [address] [address] [employer] Operator: Zaki Humprhies MD Cannabinoid(s),Ur Negative Normal NEG [facility] Comment on above: Result Comment: (Positive cutoff 50 ng/mL) Performed By: #### D AU #### [address] [address] [employer] Operator: Zaki Humphries MD Interpretive Info Assay provides medic al screening only. The absence of expected drug(s) and/or Normal [facility] Comment on above: Result Comment: meta bolite(s) may indicate diluted or adulterated urine, limitations of testing or timing of collection. Testing for legal purposes should be confirmed by another method. To request confirmation of test result, please call the lab within 7 days of sample submission. Performed By: #### D AU #### [address] [address] [employer] Operator: Zaki Humphries MD Methadone Ql (U) Negative Normal NEG [facility] Comment on above: Result Comment: (Positive cutoff 300 ng/mL) Performed By: #### D AU #### [address] [address] [employer] Operator: Zaki Humphries MD Opiate(s), Ur Negative Normal NEG [facility] Comment on above: Result Comment: (Positive cutoff 300 ng/mL) Performed By: #### D AU #### [address] [address] [employer] Operator: Zaki Humphries MD Oxycodone, Urine Negative Normal NEG [facility] Comment on above: Result Comment: (Positive cutoff 100 ng/mL) Performed By: #### D AU #### [address] [address] [employer] Operator: Zaki Humphries MD Phencyclidine, Ur Negative Normal NEG [facility] Comment on above: Result Comment: (Positive cutoff 25 ng/mL) Performed By: #### D AU #### [address] [address] [employer] Operator: Zaki Humphries MD EEG video monitoringon 05-22 Meño Reyez MD 05/23/2019 9:31 PM LONG-TERM EEG-VIDEO MONITORING CLINICAL NEUROPHYSIOLOGY LABORATORY DEPARTMENT OF NEUROLOGY [facility] Patient: Suly Huffman Age: 58 y.o. Referring [...] 100 mg Oral TID PRN Sandra Lock [employer] 100 mg at 05/23/19 1012 fluticasone (FLONASE) 50 MCG/ACT nasal spray 1 spray 1 spray Each Nostril Daily Sandra Lcok [employer] 1 spray at 05/23/19 1012 levETIRAcetam (KEPPRA) tablet 500 mg 500 mg Oral BID Bettie Horn DO sodium chloride flush 0.9 % injection 10 mL 10 mL Intravenous PRN Sandra Lock [employer] sodium chloride flush 0.9 % injection 10 mL 10 mL Intravenous 2 times per day Bettie Horn DO 10 mL at 05/23/19 0842 sodium chloride flush 0.9 % injection 10 mL 10 mL Intravenous PRN Bettie Horn DO magnesium sulfate 1 g in dextrose 5% 100 mL IVPB 1 g Intravenous PRN Bettie Horn DO acetaminophen (TYLENOL) tablet 650 mg 650 mg Oral Q4H PRN Bettie Horn DO 650 mg at 05/23/19 1735 niMODipine (NIMOTOP) capsule 60 mg 60 mg Oral 6 times per day Bettie Horn DO 60 mg at 05/23/19 1736 perflutren lipid microspheres (DEFINITY) injection 1.65 mg 1.5 mL Intravenous ONCE PRN Bettie Horn, DO promethazine (PHENERGAN) tablet 12.5 mg 12.5 mg Oral Q6H PRN Bettie Horn DO Or ondansetron (ZOFRAN) injection 4 mg 4 mg Intravenous Q6H PRN Bettie Horn DO atorvastatin (LIPITOR) tablet 40 mg 40 mg Oral Nightly Bettie Horn DO 40 mg at 05/22/19 2210 labetalol (NORMODYNE;TRANDATE) injection syringe 10 mg 10 mg Intravenous Q10 Min PRN Bettie Horn DO hydrALAZINE (APRESOLINE) injection 10 mg 10 [...] revealed no abnormalities. MEÑO REYEZ MD Diplomate, [place] [employer] Neurology Diplomate, [place] [employer] Clinical Neurophysiology Diplomate, [place] [employer] Epilepsy Please note this is a preliminary report and updated daily. The final report will have a summary of behavior and electrographic findings with clinical correlation. [facility] [place] E[facility] 12 [place] 05-23-2019 Atrial Rate 52 BPM [facility], [employer] [facility] [place] 32 degrees [facility], [place] P-R Interval 194 ms [facility], [place] Q-T Interval 468 ms [facility], [place] QRS Duration 86 ms [facility], [place] QTc Calculation (Bazett) 435 ms [facility], [place] [place] -30 degrees [facility], [place] -5 degrees [facility], [place] Ventricular Rate 52 BPM [facility], [place] Sinus bradycardia Le ft axis deviation Abnormal ECG No previous ECGs available [facility], [place] Juancarlos, Mhpn Incoming E kg Results From [employer] [place] - 05/23/2019 2:16 PM EDT Sinus bradycardia Left axis deviation Abnormal ECG No previous ECGs available [place], [place] HEMOGLOBIN A1Con 05-23-2019 Glucose [Mass/Vol] 111 mg/dL [place] Comment on above: The ADA and AACC rec ommend providing the estimated average glucose result to permit better patient understanding of their HBA1c result. HbA1c (Bld) [Mass fraction] 5.5 % 4 - 6 % [place] Hemoglobin A1Con 05-23-2019 HbA1c (Bld) [Mass fraction] 5.5 % Normal 4.0-6.0 [facility] Comment on above: Performed By: #### C DP, BMP, LIPR, MG, GLYHGB #### [facility] [facility] [address] [place] [address] [employer] Operator: Zaki Humphries MD HbA1c (Bld) [Mass fraction] 111 mg/dL Normal [facility] Comment on above: Result Comment: The ADA and AACC recommend providing the estimated average glucose result to permit better patient understanding of their HBA1c result. Performed By: #### C DP, BMP, LIPR, MG, GLYHGB #### [facility] [address] [place] [address] [employer] Operator: Zaki Humphries MD LIPID PANELon 05-23-2019 Cholesterol [Mass/Vol] 150 mg/dL <200 [place] Comment on above: Cholesterol Guidelines: <200 Desirable 200-240 Borderline >240 Undesirable Cholesterol in HDL [Mass/Vol] 31 mg/dL Low >40 [place] Comment on above: HDL Guidelines: <40 Undesirable 40-59 Borderline >59 Desirable Cholesterol in LDL [Mass/Vol] 74 mg/dL 0 - 130 mg/dL [place] Comment on above: LDL Guidelines: <100 Desirable 100-129 Near to/above Desirable 130-159 Borderline >159 Undesirable Direct (measured) LDL and calculated LDL are not interchangeable tests. Cholesterol in VLDL [Mass/Vol] NOT REPORTED High 1 - 30 mg/dL [place] Cholesterol.total/Ch olesterol in HDL [Mass ratio] 4.8 {ratio} <5 [place] Triglyceride [Mass/Vol] 226 mg/dL High <150 [place] Comment on above: Triglyceride Guidelines: <150 Desirable 150-199 Borderline 200-499 High >499 Very high Based on AHA Guidelines for fasting triglyceride, December 2011. Lipid Profileon 05-23-2019 Cholesterol [Mass/Vol] 150 mg/dL Normal <200 [facility] Comment on above: Result Comment: Cholesterol Guidelines: <200 Desirable 200-240 Borderline >240 Undesirable Performed By: #### C DP, BMP, LIPR, MG, GLYHGB #### [facility] [facility] [address] [place] [address] [id number] [employer] Operator: Zaki Humphries MD Cholesterol in HDL [Mass/Vol] 31 mg/dL Low >40 [facility] Comment on above: Result Comment: HDL Guidelines: <40 Undesirable 40-59 Borderline >59 Desirable Performed By: #### C DP, BMP, LIPR, MG, GLYHGB #### [facility] [address] [place] [address] [phone] [employer] Operator: Zaki Humphries MD Cholesterol in LDL [Mass/Vol] 74 mg/dL Normal 0-130 [facility] Comment on above: Result Comment: LDL Guidelines: <100 Desirable 100-129 Near to/above Desirable 130-159 Borderline >159 Undesirable Direct (measured) LDL and calculated LDL are not interchangeable tests. Performed By: #### C DP, BMP, LIPR, MG, GLYHGB #### [facility] [address] [place] [address] [phone] [employer] Operator: Zaki Humphries MD Cholesterol.total/Ch olesterol in HDL [Mass ratio] 4.8 {ratio} Normal <5 [facility] Comment on above: Performed By: #### C DP, BMP, LIPR, MG, GLYHGB #### [facility] [address] [place] [address] [phone] [employer] Operator: Zaki Humphries MD Triglyceride [Mass/Vol] 226 mg/dL High <150 [facility] Comment on above: Result Comment: Triglyceride Guidelines: <150 Desirable 150-199 Borderline 200-499 High >499 Very high Based on AHA Guidelines for fasting triglyceride, December 2011. Performed By: #### C DP, BMP, LIPR, MG, GLYHGB #### [facility] [place] [address] [employer] Operator: Zaki Humphries MD Cholesterol in VLDL [Mass/Vol] NOT REPORTED Normal 1-30 [facility] Comment on above: Performed By: #### C DP, BMP, LIPR, MG, GLYHGB #### [facility] [address] [place] [address] [employer] Operator: Zaki Humphries MD MAGNESIUMon 05-23-2019 Magnesium [Mass/Vol] 2.4 mg/dL 1.6 - 2 .6 mg/dL [place] MRSA DNA Probe, Nasalon MRSA, DNA, Nasal NEGATIVE: MRSA DNA n ot detected by nucleic acid amplification. NEGATIVE: MRSA DNA not detected by nucleic acid amplificati [place] Comment on above: Results should be used as an adjunct to nosocomial control efforts to identify patients needing enhanced precautions. The test is not intended to identify patients with staphylococcal infections. Results should not be used to guide or monitor treatment for MRSA infections. Specimen Description .NASAL SWAB [place] MRSA, DNA, Nasalon 0 MRSA, DNA, Nasal NEGATIVE: MRSA DNA n ot detected by nucleic acid amplification. Normal NMRSAA [facility] Comment on above: Result Comment: Results should be used as an adjunct to nosocomial control efforts to identify patients needing enhanced precautions. The test is not intended to identify patients with staphylococcal infections. Results should not be used to guide or monitor treatment for MRSA infections. Performed By: #### M RSANO ####[address] [address] Lab Director: Zaki Humphries MD Magnesiumon 05-23-2019 Magnesium [Mass/Vol] 2.4 mg/dL Normal 1.6-2.6 [facility] Comment on above: Performed By: #### C BC, BMP, MG ####[facility] [address] [place], [place] [id number] Lab Director: Zaki Humphries MD Magnesium [Mass/Vol] 2.4 mg/dL 1.6 - 2 .6 mg/dL [place] Magnesium [Mass/Vol] 2.4 mg/dL Normal 1.6-2.6 [facility] Comment on above: Performed By: #### C DP, BMP, LIPR, MG, GLYHGB #### [facility] [place] [address] [employer] Operator: Zaki Humphries MD Otheron 05-23-2019 Interpretation and review of laboratory results Abnormal [place] PROTIME-INRon 05-23-2019 INR Coag (PPP) [Relative time] 1.0 {INR} [place] Comment on above: Therapeutic Range: Moderate Anticoagulant Intensity: INR = 2.0-3.0 High Anticoagulant Intensity: INR = 2.5-3.5 PT Coag (PPP) [Time] 11 s [place] PTon 05-23-2019 INR Coag (PPP) [Relative time] 1.0 {INR} Normal [facility] Comment on above: Result Comment: Therapeutic Range: Moderate Anticoagulant Intensity: INR = 2.0-3.0 High Anticoagulant Intensity: INR = 2.5-3.5 Performed By: #### P TT, PT ####[address] [address] Lab Director: Zaki Humphries MD PT Coag (PPP) [Time] 11.0 s Normal 9.0-12.0 [facility] Comment on above: Performed By: #### P TT, PT ####[facility] [place] [address] Lab Director: Zaki Humphries MD Troponinon 05-23-2019 Troponin I.cardiac [Mass/Vol] 7 ng/L Normal 0-14 [facility] Comment on above: Result Comment: High Sensitivity Troponin values cannot be compared with other Troponin methodologies. Patients with high levels of Biotin oral intake (i.e >5mg/day) may have falsely decreased Troponin levels. Samples collected within 8 hours of biotin intake may require additional information for diagnosis. Performed By: #### T ROPI ####[facility] [address] [place] [address] Lab Director: Zaki Humphries MD Troponin I.cardiac [Mass/Vol] NOT REPORTED Normal <0.03 [facility] Comment on above: Performed By: #### T ROPI ####[facility] [address] [place] [address] Lab Director: Zaki Humphries MD Troponin I.cardiac [Mass/Vol] NOT REPORTED [place] Troponin T.cardiac [Mass/Vol] NOT REPORTED <0.03 ng/mL [place] Troponin, High Sensitivity 7 ng/L 0 - 14 ng/L [place] Comment on above: High Sensitivity Troponin values cannot be compared with other Troponin methodologies. Patients with high levels of Biotin oral intake (i.e >5mg/day) may have falsely decreased Troponin levels. Samples collected within 8 hours of biotin intake may require additional information for diagnosis. Troponin I.cardiac [Mass/Vol] 7 ng/L Normal 0-14 [facility] Comment on above: Result Comment: High Sensitivity Troponin values cannot be compared with other Troponin methodologies. Patients with high levels of Biotin oral intake (i.e >5mg/day) may have falsely decreased Troponin levels. Samples collected within 8 hours of biotin intake may require additional information for diagnosis. Performed By: #### T ROPI ####[facility] [address] [place] [address] Lab Director: Zaki Humphries MD Troponin I.cardiac [Mass/Vol] NOT REPORTED Normal [facility] Comment on above: Performed By: #### T ROPI ####[facility] [address] [place] [address] Lab Director: Zaki Humphries MD Troponin I.cardiac [Mass/Vol] NOT REPORTED [place] Troponin T.cardiac [Mass/Vol] NOT REPORTED <0.03 ng/mL [place] Troponin, High Sensitivity 7 ng/L 0 - 14 ng/L [place] Comment on above: High Sensitivity Troponin values cannot be compared with other Troponin methodologies. Patients with high levels of Biotin oral intake (i.e >5mg/day) may have falsely decreased Troponin levels. Samples collected within 8 hours of biotin intake may require additional information for diagnosis. VL TRANSCRANIAL DOPPLER COMP LETEon 05-23-2019 Juancarlos, pn Incoming Cardio Results From [employer] - 05/23/2019 5:15 PM EDT [facility] Vascular Transcranial Procedure Patient Name NATHANAEL Date of Study 05/23/2019 SULY Farmer Date of 1960 Gender Female Age 58 year(s) Race Room Number 0523 Corporate ID [id number] # Patient Acct [id number] # MR # [id number] Credit Report Checker Carole Hooks, [place], [facility] Interpreting Gunnar Morgan Physician Referring Referring Physician SANDRA LOCK APRN-MAT MAN Nurse Practitioner Additional Comments CLASSIFICATION OF VASOSPASM [...] 85.1 Mid AMAIRANI: 83.9 Mid AMAIRANI: 105 TYPESETTING MACHINE TENDER: 32.3 TYPESETTING MACHINE TENDER: 22.7 T ICA: 40.4 T ICA: 37.7 [...] ! + +-------+- ------+--------+------ -+-------+--------+--- --------- + [facility] Vascular Transcranial Procedure Patient Name NATHANAEL Date of Study 05/23/2019 SULY Farmer Date of 1960 Gender Female Age 58 year(s) Race Room Number 0523 Corporate ID [id number] # Patient Acct [id number] # MR # [id number] Credit Report Checker Carole Hooks, [place], [facility] Interpreting Gunnar Morgan Physician Referring [...] 85.1 Mid AMAIRANI: 83.9 Mid AMAIRANI: 105 TYPESETTING MACHINE TENDER: 32.3 TYPESETTING MACHINE TENDER: 22.7 T ICA: 40.4 T ICA: 37.7 [...] ! ! + +-------+- ------+--------+------ -+-------+--------+--- ---------+ [facility] [place] CBC AUTO DIFFon 05-22-2019 Basophils (Bld) [#/Vol] 0.1 103/ul Normal 0.0-0.1 [facility] Comment on above: Performed By: #### C BC #### [facility] [address] [id number] Piotr Marilee Basophils/100 WBC (Bld) 0.6 % Normal 0.2-2.0 [facility] Comment on above: Performed By: #### C BC #### [facility] [address] [place] [address] Piotr Marilee Eosinophils (Bld) [#/Vol] 0.2 103/ul Normal 0.0-0.7 [facility] Comment on above: Performed By: #### C BC #### [facility] [address] [place], [place] [phone] Piotr Marilee Eosinophils/100 WBC (Bld) 1.5 % Normal 0.9-7.0 [facility] Comment on above: Performed By: #### C BC #### [facility] [address] [place], [place] [phone] Piotr Marilee Erythrocyte distribution width (RBC) [Ratio] 13.2 % Normal 11.0-15.0 [facility] Comment on above: Performed By: #### C BC #### [facility] [address] [place], [place] [phone] Piotr Marilee Hematocrit (Bld) [Volume fraction] 47.0 % Normal 36.0-48.0 [facility] Comment on above: Performed By: #### C BC #### [facility] [address] [place], [place] [phone] Piotr Marilee Hemoglobin (Bld) [Mass/Vol] 15.5 g/dL Normal 12.0-16.0 [facility] Comment on above: Performed By: #### C BC #### [facility] [address] [id number] Piotr Marilee IG # 0.10 10e3/ul Critically high 0.00-0.03 [facility] Comment on above: Performed By: #### C BC #### [facility] [address] [id number] Piotr Marilee IG % 0.8 % Critically high 0.0-0.5 [facility] Comment on above: Performed By: #### C BC #### [facility] [address] [place], [place] [phone] Piotr Marilee Lymphocytes (Bld) [#/Vol] 3.3 103/ul Normal 1.2-3.8 [facility] Comment on above: Performed By: #### C BC #### [facility] [address] [place] [address] Piotr Marilee Lymphocytes/100 WBC (Bld) 25.7 % Normal 20.5-60.0 [facility] Comment on above: Performed By: #### C BC #### [facility] [address] [place], [place] [phone] Piotr Marilee MANUAL DIFF REQ NO Normal [facility] Comment on above: Performed By: #### C BC #### [facility] [address] [place], [place] [phone] Piotr Marilee MCH (RBC) [Entitic mass] 29.5 pg Normal 26.7-34.0 [facility] Comment on above: Performed By: #### C BC #### [facility] [address] [place] [address] Piotr Marilee MCHC (RBC) [Mass/Vol] 33.0 g/dL Normal 29.9-35.2 [facility] Comment on above: Performed By: #### C BC #### [facility] [address] [place], [place] [phone] Piotr Marilee MCV (RBC) [Entitic vol] 89.5 fL Normal 81.0-99.0 [facility] Comment on above: Performed By: #### C BC #### [facility] [address] [place], [place] [phone] Piotr Marilee Monocytes (Bld) [#/Vol] 1.0 103/ul Critically high 0.3-0.8 [facility] Comment on above: Performed By: #### C BC #### [facility] [address] [id number] Piotr Marilee Monocytes/100 WBC (Bld) 7.5 % Normal 1.7-12.0 [facility] Comment on above: Performed By: #### C BC #### [facility] [address] [place], [place] [phone] Piotr Marilee Neutrophils (Bld) [#/Vol] 8.1 103/ul Critically high 1.4-6.5 [facility] Comment on above: Performed By: #### C BC #### [facility] [address] [place], [place] [phone] Piotr Marilee Neutrophils/100 WBC (Bld) 63.9 % Normal 43.0-75.0 [facility] Comment on above: Performed By: #### C BC #### [facility] [address] [place], [place] [phone] Piotr Marilee Platelet mean volume (Bld) [Entitic vol] 9.3 fL Critically low 9.5-13.5 [facility] Comment on above: Performed By: #### C BC #### [facility] [address] [place], [place] [phone] Piotr Marilee Platelets (Bld) [#/Vol] 319 103/ul Normal 150-450 [facility] Comment on above: Performed By: #### C BC #### [facility] [address] [place], [place] [phone] Piotr Marilee RBC (Bld) [#/Vol] 5.25 106/ul Normal 4.20-5.40 [facility] Comment on above: Performed By: #### C BC #### [facility] [address] [place], [place] [phone] Piotr Marilee WBC (Bld) [#/Vol] 12.7 103/ul Critically high 4.0-11.0 [facility] Comment on above: Performed By: #### C BC #### [facility] [address] [phone] HEAD WO CONon 05-22-2019 [...] time on May 22, 2019. Normal [facility] CTA HEAD NECK W CONTRASTon 0 05-22-2019 [...] John Jordan MD 05/22/19 Final result Normal [facility] Juancarlos, Mhpn Incoming Radiant Results From [email or web address] - 05/22/2019 8:26 PM EDT EXAMINATION: CTA [...] occlusion detected within the head or neck. [facility], [place] EXAMINATION: CTA OF THE HEAD AND NECK [...] See separately dictated noncontrast head CT report. [place], [place] No cerebral aneurysm or vascular malformation visualized. No flow limiting stenosis or large vessel occlusion detected within the head or neck. [place] DRUG SCREEN MULTI URINEon Amphetamine Screen, Ur Negative NEGATIVE [place] Comment on above: (Positive cutoff 1000 ng/mL) Barbiturate Screen, Ur Negative NEGATIVE [place] Comment on above: (Positive cutoff 200 ng/mL) Benzodiazepine Screen, Urine Negative NEGATIVE [place] Comment on above: (Positive cutoff 200 ng/mL) Buprenorphine Urine NOT REPORTED NEGATIVE [place] Cannabinoid Scrn, Ur Negative NEGATIVE [place] Comment on above: (Positive cutoff 50 ng/mL) Cocaine Metabolite, Urine Negative NEGATIVE [place] Comment on above: (Positive cutoff 300 ng/mL) MDMA, Urine NOT REPORTED NEGATIVE [place], [place] Methadone Screen, Urine Negative NEGATIVE [place] Comment on above: (Positive cutoff 300 ng/mL) Methamphetamine, Urine NOT REPORTED NEGATIVE [place] Opiates, Urine Negative NEGATIVE [place] Comment on above: (Positive cutoff 300 ng/mL) Oxycodone Screen, Ur Negative NEGATIVE [place] Comment on above: (Positive cutoff 100 ng/mL) Phencyclidine, Urine Negative NEGATIVE [place] Comment on above: (Positive cutoff 25 ng/mL) Propoxyphene, Urine NOT REPORTED NEGATIVE [place] Test Information Assay provides medic al screening only. The absence of expected drug(s) and/or metabolite(s) may indicate diluted or adulterated urine, limitations of testing or timing of collection. [place] Comment on above: Testing for legal pu rposes should be confirmed by another method. To request confirmation of test result, please call the lab within 7 days of sample submission. Tricyclic Antidepressants, Urine NOT REPORTED NEGATIVE [place] Drug Scr, Abuse, Uron 2019 Buprenorphrine, Ur NOT REPORTED Normal NEG [facility] Comment on above: Performed By: #### D AU #### [facility] [address] [place] [address] [employer] Operator: Zaki Humphries MD MDMA, Urine NOT REPORTED Normal NEG [facility] Comment on above: Performed By: #### D AU #### [address] [address] [employer] Operator: Zaki Humphries MD Methamphetamine, Ur NOT REPORTED Normal NEG [facility] Comment on above: Performed By: #### D AU #### [address] [address] [employer] Operator: Zaki Humphries MD Propoxyphene,Urine NOT REPORTED Normal NEG [facility] Comment on above: Performed By: #### D AU #### [address] [address] [employer] Operator: Zaki Humphries MD Tricyclic antidepressants Screen Ql (U) NOT REPORTED Normal NEG [facility] Comment on above: Performed By: #### D AU #### [address] [address] [employer] Operator: Zaki Humphries MD ER URINE PROFILEon 0 Bilirubin [Mass/Vol] Negative Normal NEGATIVE [facility] Comment on above: Performed By: #### E RUR ####[facility] [address] [place] BLOOD Negative Normal NEGATIVE [facility] Comment on above: Performed By: #### E RUR ####[facility] [address] [place] Clarity (U) CLEAR Normal [facility] Comment on above: Performed By: #### E RUR ####[facility] [address] [id number] Marilee Color (U) LT. YELLOW Normal YELLOW [facility] Comment on above: Performed By: #### E RUR ####[facility] [address] [phone] Marilee ERUAHD A micrscopic examination will be performed if indicated. Normal [facility] Comment on above: Performed By: #### E RUR ####[facility] [address] [phone] Marliee Glucose [Mass/Vol] Negative Normal NEGATIVE [facility] Comment on above: Performed By: #### E RUR ####[facility] [address] [id number] Marilee Ketones Ql (U) Negative Normal NEGATIVE [facility] Comment on above: Performed By: #### E RUR ####[facility] [address] [place] [address] [place] Nitrite Ql (U) Negative Normal NEGATIVE [facility] Comment on above: Performed By: #### E RUR ####[facility] [address] [place] [address] [place] pH (Bld) 6.0 Normal 5-9 [facility] Comment on above: Performed By: #### E RUR ####[facility] [address] [place] [address] [place] Protein (U) [Mass/Vol] Negative Normal [facility] Comment on above: Performed By: #### E RUR ####[facility] [address] [place] [address] [place] SPEC GRAVITY 1.010 Normal 1.005-<=1.025 [facility] Comment on above: Performed By: #### E RUR ####[facility] [address] [place] [address] Mar[place] UR MICRO IND NOT INDICATED Normal [facility] Comment on above: Performed By: #### E RUR ####[facility] [address] [place] [address] [place] Urobilinogen Qn (U) 0.2 EU/dl Normal [facility] Comment on above: Performed By: #### E RUR ####[facility] [address] [place], [place] [address]F[address]sxm[address] Hunt WBC (Bld) [#/Vol] Negative Normal NEGATIVE [facility] Comment on above: Performed By: #### E RUR ####[facility] [address] [place], [place] [address]cf[address] LACTATE/LACTIC ACIDon 2019 Lactate [Moles/Vol] 0.9 mmol/L Normal 0.7-2.0 [facility] Comment on above: Performed By: #### L ACT ####[facility] [address] [place], [place] [address]Odmmfm Marilee MRI BRAIN W WO CONTRASTon MRI [...] Filiberto Chamberlain MD 05/22/19 Final result Normal [facility] Juancarlos, Mhpn Incoming Radiant Results From [email or web address] - 05/22/2019 8:06 PM EDT EXAMINATION: MRI [...] discussed with Dr. Iqbal at 7:56 p.m. [place] Subarachnoid hemorrhage central sulcus on the [...] discussed with Dr. Iqbal at 7:56 p.m. [place] EXAMINATION: MRI OF THE BRAIN WITHOUT [...] signal within the mastoid air cells bilaterally. [place] MRSA, DNA, Nasalon 0 Specimen Description .NASAL SWAB Normal [facility] Comment on above: Performed By: #### M RSANO ####[facility] [place] [address] lab Director: Zaki Humphries MD PROF 14(COMP METB)on 020 Albumin [Mass/Vol] 3.8 g/dL Normal 3.5-5.0 [facility] Comment on above: Performed By: #### C MP, TROP, TSH #### [facility] [address] [place], [place] [address] Piotr Marilee Albumin/Globulin [Mass ratio] 0.9 {ratio} Normal [facility] Comment on above: Performed By: #### C MP, TROP, TSH #### [facility] [address] [place], [place] [address] Piotr Marilee ALP [Catalytic activity/Vol] 59 U/L Normal 38-126 [facility] Comment on above: Performed By: #### C MP, TROP, TSH #### [facility] [address] [place] [id number] Piotr Marilee ALT [Catalytic activity/Vol] 64 U/L Critically high 9-52 [facility] Comment on above: Performed By: #### C MP, TROP, TSH #### [facility] [address] [place] [id number] Piotr Marilee Anion gap [Moles/Vol] 15.5 mmol/L Normal [facility] Comment on above: Performed By: #### C MP, TROP, TSH #### [facility] [address] [place] [id number] Piotr Marilee AST [Catalytic activity/Vol] 33 U/L Normal 14-36 [facility] Comment on above: Performed By: #### C MP, TROP, TSH #### [facility] [address] [place], [place] [address] Piotr Marilee Bilirubin Ql (U) 0.3 mg/dL Normal 0.2-1.3 [facility] Comment on above: Performed By: #### C MP, TROP, TSH #### [facility] [address] [place], [place] [address] Piotr Marilee Calcium [Mass/Vol] 9.7 mg/dL Normal 8.4-10.2 [facility] Comment on above: Performed By: #### C MP, TROP, TSH #### [facility] [address] [place] [id number] Piotr Marilee Chloride [Moles/Vol] 100 mmol/L Normal 98-107 [facility] Comment on above: Performed By: #### C MP, TROP, TSH #### [facility] [address] [place], [place] [address] Piotr Marilee CO2 [Moles/Vol] 27.2 mmol/L Normal 22.0-30.0 [facility] Comment on above: Performed By: #### C MP, TROP, TSH #### [facility] [address] [place] [id number] Piotr Marilee Creatinine [Mass/Vol] 0.80 mg/dL Normal 0.52-1.04 [facility] Comment on above: Performed By: #### C MP, TROP, TSH #### [facility] [address] [address] Piotr Marilee EGFR-AF TAJIK >60 Normal >=60 [facility] Comment on above: Performed By: #### C MP, TROP, TSH #### [facility] [address] [place] [address] Piotr Marilee EGFR-NON AF TAJIK >60 Normal >=60 [facility] Comment on above: Performed By: #### C MP, TROP, TSH #### [facility] [address] [place] [id number] Piotr Marilee Globulin (S) [Mass/Vol] 4.2 g/dL Normal [facility] Comment on above: Performed By: #### C MP, TROP, TSH #### [facility] [address] [place] [address] Piotr Marilee Glucose [Mass/Vol] 97 mg/dL Normal 74-106 [facility] Comment on above: Performed By: #### C MP, TROP, TSH #### [facility] [address] [address] Piotr Marilee Potassium [Moles/Vol] 3.7 mmol/L Normal 3.4-5.0 [facility] Comment on above: Performed By: #### C MP, TROP, TSH #### [facility] [address] [id number] Piotr Marilee Protein [Mass/Vol] 8.0 g/dL Normal 6.1-8.2 [facility] Comment on above: Performed By: #### C MP, TROP, TSH #### [facility] [address] [place] [address] Piotr Marilee Sodium [Moles/Vol] 139 mmol/L Normal 137-145 [facility] Comment on above: Performed By: #### C MP, TROP, TSH #### [facility] [address] [place] [address] Piotr Marilee Urea nitrogen [Mass/Vol] 20.0 mg/dL Critically high 7.0-17.0 [facility] Comment on above: Performed By: #### C MP, TROP, TSH #### [facility] [address] [place] [address] Piotr Marilee Urea nitrogen/Creatinine [Mass ratio] 25.0 mg/mg Normal [facility] Comment on above: Performed By: #### C MP, TROP, TSH #### [facility] [address] [place] [address] Piotr Marilee PROTIMEon 05-22-2019 INR Coag (PPP) [Relative time] 1.07 {INR} Normal [facility] Comment on above: Performed By: #### P T, PTT #### [facility] [address] [place], [place] [id number] Piotr Marilee PT Coag (PPP) [Time] SEE BELOW Normal [facility] Comment on above: Result Comment: DUONG RED INR: 2.0 - 3.0 CONDITIONS NOT LISTED BELOW 2.5 - 3.5 FOR PROSTHETIC HEART VALVE REPLACEMENT 2.5 - 3.5 RECURRENT THROMBOSIS Performed By: #### P T, PTT #### [facility] [address] [place] [address] Piotr Marilee PT Coag (PPP) [Time] 11.1 s Normal 9.0-11.6 [facility] Comment on above: Performed By: #### P T, PTT #### [facility] [address] [place], [place] [id number] Piotr Marilee PT Coag (PPP) [Time] PLEASE NOTE: NORMAL RANGE CHANGE 12-01-2013 DUE TO REAGENT LOT CHANGE Normal [facility] Comment on above: Performed By: #### P T, PTT #### [facility] [address] [place] [address] Piotr Hunt PTTon 05-22-2019 aPTT Coag (Bld) [Time] PLEASE NOTE: NORMAL RANGE CHANGE 02-07-2015 DUE TO REAGENT LOT CHANGE Normal [facility] Comment on above: Performed By: #### P T, PTT #### [facility] [address] [place] [address] Piotr Hunt aPTT Coag (Bld) [Time] 23.6 s Normal 22.3-36.2 [facility] Comment on above: Performed By: #### P T, PTT #### [facility] [address] [place] [address] Marilee TROPONIN - Ion 05-22-2019 Troponin I.cardiac [Mass/Vol] ng/mL Normal <=0.034 [facility] Comment on above: Performed By: #### C MP, TROP, TSH #### [facility] [address] [place] [address] Marilee Troponin I.cardiac [Mass/Vol] SEE BELOW Normal [facility] Comment on above: Result Comment: <0.0 34 ng/ml NEGATIVE 0.034-0.119 INDETERMINATE 0.120 AMI CUT OFF Performed By: #### C MP, TROP, TSH #### [facility] [address] [place], [place] [address]elías Hunt TSHon 05-22-2019 TSH Qn 3.019 uIU/mL Normal 0.470-4.680 [facility] Comment on above: Performed By: #### C MP, TROP, TSH ####[facility] [id number] TSH Qn SEE BELOW Normal [facility] Comment on above: Result Comment: <0.3 4 UIU/ml HYPERTHYROID 0.34-5.60 UIU/ml EUTHYROID >5.60 UIU/ml HYPOTHYROID Performed By: #### C MP, TROP, TSH ####[facility] [id number] XR CHEST 2 Von 05-22-2019 XR CHEST 2 V EXAM: XR CHEST 2 V HISTORY: COUGH COMPARISON: None. TECHNIQUE: 2 views of the chest are submitted for review. FINDINGS: The heart size is normal. Lungs are clear. No focal consolidation, pneumothorax or pleural effusion is seen. The osseous structures appear unremarkable. IMPRESSION: No radiographic evidence for acute cardiopulmonary disease. Normal [facility] CONSULTATIONon 03-28-2019 CONSULTATION CONSULTATION PAIN MANAGEMENT Consultation [...] would like to proceed with Motrin 800 [id number] as this is more helpful than the [...] the office today. 3. We will add Trent 5/325 mg 1 p.o. b.i.d. p.r.n. pain. She is currently not on a opioid medication at this time. She last utilized tramadol in the past at a previous pain clinic and stated she had gastrointestinal issues as in nausea after taking the tramadol. The patient has been advised of the risks and benefits of the Trent medication. OARRS report is reviewed and no [...] her pain. Dictated by Yris Goins APRN [facility] Signed and Approved by: YRIS GOINS 04/04/2019 17:00:00 [facility] 12-20-2018 CONSULTATION CONSULTATION PAIN MANAGEMENT Consultation Date: [...] upon her pain. The patient has failed cjpl-ifj-mgooccg antiinflammatories as well as Tylenol in regards [...] progress check. Dictated by Yris Goins APRN [facility] Signed and Approved by: YRIS GOINS 12/27/2018 15:18:00 Normal [facility] CONSULTATIONon 09-20-2018 CONSULTATION CONSULTATION PAIN MANAGEMENT [...] pain are sitting, baclofen 10 mg, and ramw-svl-tvlyreu medication Tylenol and Motrin. On August 31, [...] her pain. Dictated by Yris Goins APRN [facility] Signed and Approved by: YRIS GOINS 09/20/2018 13:40:00 Normal [facility] 08-17-2018 CONSULTATION CONSULTATION PAIN MANAGEMENT Consultation Date: [...] and would like to proceed. cc:Dr. David [facility] Signed and Approved by: DR SELINA WADDELL 08/24/2018 08:28:00 Normal [facility] MG MAMM SCREEN LUIS W CADon 0 07-29-2018 MG MAMM SCREEN LUIS W CAD Patient: SULY HUFFMAN Exam Date: 07/29/2018 : 1960 Gender:F Ordering : MRS. GARFIELD ROJO MAGDALENO Admission #: [id number] Family : Order #: [id number] CLICK HERE TO VIEW EXAM RADIOLOGY REPORT [...] lung cancer at age 76. LOCATION: [facility] BREAST COMPOSITION: Heterogeneously dense, which may obscure [...] Reza MD on 07/29/2018 at 16:46 Normal [facility] Vital Signs Date Time Vital Sign Value Performing Clinician Facility 05-27-2019 15:45-0400 Body Temperature 97.5 [degF] [place], [place] 05-27-2019 15:45-0400 BP Diastolic 70 mm[Hg] Yogesh Rothman [facility] , [place] 05-27-2019 15:45-0400 BP Systolic 155 mm[Hg] [facility] , [place] 05-27-2019 15:45-0400 Pulse (Heart Rate) 58 /min Yogesh Lzaaro [facility] 05-27-2019 15:45-0400 Pulse Oximetry 99 % [facility] [place] 05-27-2019 15:45-0400 Respiratory Rate 16 /min Yogesh Lazaro [facility] [place], [place] 05-26-2019 14:09-0400 Body mass index (BMI) [Ratio] 9 AU/mL [facility] Comment on above: Result Comment: GBM Reference [...] diagnosis. 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 Batching Plant Operator: Zaki Humphries MD 05-22-2019 21:05-0400 BMI (Body Mass Index) 31.93 kg/m2 [facility] [place] 05-22-2019 21:05-0400 Body weight 95.25 kg Yogesh Rothman [place], [place] 05-22-2019 21:05-0400 Height 172.7 cm Yogesh Rothman [place] Encounters Encounter Date Encounter Type Care Provider Facility Start: 06-08-2023 End: 06-08-2023 ambulatory BART AGUSTO Not Available Start: 06-05-2023 End: 06-05-2023 ambulatory Bart Agusto Facility:[facility] Start: 06-05-2023 End: 06-05-2023 ambulatory Bart Agusto Work Phone: [facility] Work Phone: Start: 06-05-2023 End: 06-05-2023 Departed Referred Bart Wellingtono Work Phone: [facility] Start: 05-04-2023 End: 05-04-2023 ambulatory BART WELLINGTONO Not Available Start: 03-26-2023 End: 03-26-2023 ambulatory BART AGUSTO Not Available Start: 02-18-2023 End: 02-19-2023 ambulatory WHIT GODINEZ Not Available Start: 06-10-2019 End: 06-13-2019 Patient encounter procedure [facility] Start: 06-10-2019 End: 06-12-2019 Subsequent hospital visit by physician [address] 1 [facility] Radiology Comment on above: Subarachnoid hemorrh age (HCC) Vasculitis (HCC) Start: 05-22-2019 End: 05-27-2019 Evaluation and management of inpatient OSAMA O RIZWANAT [facility] Start: 05-22-2019 End: 05-27-2019 Evaluation and management of inpatient Yogesh Rothman [facility] Comment on above: TIA (transient ische saroj attack) (Primary Dx); Subarachnoid hemorrhage (HCC); Subdural hematoma (HCC); SAH (subarachnoid hemorrhage) (HCC) Start: 05-22-2019 End: 05-22-2019 Patient encounter procedure ELADIA DAVID Facility:[facility] Start: 05-17-2019 Patient encounter procedure SELINA S WADDELL Facility:[facility] Start: 03-28-2019 End: 03-29-2019 Patient encounter procedure SELINA S WADDELL Facility:[facility] Start: 12-20-2018 End: 12-21-2018 Patient encounter procedure SELINA S WADDELL Facility:[facility] Start: 11-30-2018 End: 11-30-2018 Patient encounter procedure SELINA S WADDELL Facility:[facility] Start: 09-20-2018 End: 09-21-2018 Patient encounter procedure SELINA S WADDELL Facility:[facility] Start: 08-31-2018 End: 08-31-2018 Patient encounter procedure SELINA S WADDELL Facility:[facility] Start: 08-17-2018 End: 08-18-2018 Patient encounter procedure SELINA S WADDELL Facility:[facility] Start: 08-03-2018 Patient encounter procedure [...] ZAIDAT Start: 05-25-2019 Protein total xcpt refractometry oth src OSAMA ZAIDAT Start: 05-25-2019 IR LUMBAR PUNCTURE F OR DIAGNOSIS OSAMA ZAIDAT Start: 05-25-2019 PULSE OXIMETRY, CONTINUOUS OSAMA ZAIDAT Start: 05-25-2019 Glucose blood reagent strip Cecilio Sherman Work Phone: Start: 05-25-2019 Smr prim src gram/gi emsa stain bct fungi/cell Radha Johnston Work Phone: Start: 05-25-2019 Cell count misc body fluids w/differential count [facility] Work Phone: Start: 05-25-2019 CSF DIFFERENTIAL Radha Vickie Work Phone: Start: 05-25-2019 Glucose body fluid o ther than blood [facility] Work Phone: Start: 05-25-2019 Protein total xcpt refractometry oth src Radha Johnston Work Phone: Start: 05-25-2019 IR LUMBAR PUNCTURE F OR DIAGNOSIS Radha Vickie Work Phone: Start: 05-25-2019 Gluc bld gluc [...] 05-24-2019 Clotting inhibitors protein c activity [facility] Work Phone: Start: 05-24-2019 Clotting inhibitors protein s free [facility] Work Phone: Start: 05-24-2019 Glucose blood reagent [...] Radiologic exam ches t single view [facility] Work Phone: Start: 05-24-2019 Acute hepatitis panel [...] Start: 05-24-2019 Glucose blood reagent strip Cecilio Gage Work Phone: Start: 05-24-2019 Slctv cath carotid/i nnom art angio intrcranl art OSAMA ZAIDAT Start: 05-24-2019 Acute hepatitis panel M cailin Lion Work Phone: Start: 05-24-2019 Antinuclear antibodies aroldo Courtney Lion Work Phone: Start: 05-24-2019 Assay of thyroid stimulating hormone tsh Courtney Lion Work Phone: Start: 05-24-2019 C-reactive protein Jack clint Lion Work Phone: Start: 05-24-2019 Complement antigen e ach component Courtney Lion Work Phone: Start: 05-24-2019 Flow cytometry cell surf marker techl only 1st Courtney Lion Work Phone: Start: 05-24-2019 Fluorescent nonnfct agt antb screen ea antibody Courtney Lion Work Phone: Start: 05-24-2019 GLOMERULAR BASEMENT MEMBRANE (GBM) ANTIBODY IGG Courtney Lion Work Phone: Start: 05-24-2019 HIV REFLEX Courtney landry Work Phone: Start: 05-24-2019 Rheumatoid factor quantitative [...] Lock Work Phone: Start: 05-23-2019 Prothrombin time OSAMA [...] AL VTE PROPHYLAXIS OSAMA ZAIDAT Start: 05-22-2019 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 EVAL AND TREAT OSAM A ZAIDAT [...] ZAIDAT Start: 05-22-2019 VITAL SIGNS - NOTIFY MD JOSE MICHAEL Start: 05-22-2019 Ct angiography head w/contrast/noncontrast OSAMA ZAIDAT Start: 05-22-2019 Drug screen class list a Bettie Horn Work Phone: Start: 05-22-2019 Iadna s aureus methi cillin resist amp probe tq Marty Limon Work Phone: Start: 05-22-2019 Mri brain brain stem w/o w/contrast material OSAMA ZAIDAT Start: 05-22-2019 Speech and language therapy regime Bettie Justina Work Phone: Start: 05-22-2019 PATIENT STATUS (FROM ED OR OR/PROCEDURAL) OSAMA ZAIDAT Start: 05-22-2019 TELEMETRY MONITORING OS AMA ZAIDAT Start: 05-22-2019 Ct angiography neck w/contrast/noncontrast Sandra Lock Work Phone: Start: 05-22-2019 IP CONSULT TO NEUROC RITICAL CARE OSAMA ZAIDAT Start: 05-22-2019 IP CONSULT TO NEUROSURGERY OSANY ZAIDAT Start: 05-22-2019 Mri brain brain stem w/o w/contrast material Sandra Lock Work Phone: Start: 05-22-2019 [facility] Start: 05-22-2019 IP CONSULT TO ENDOVA SCULAR NEUROSURGERY OSANY JOHNIDAT Plan of Treatment Date Care Activity Detail Author Start: 10-03-2024 DTaP/Tdap/Td vaccine (2 - Td) DTaP/Tdap/Td vaccine (2 - Td) [place], [place] Start: 05-22-2022 Diabetes screen Diabetes screen [place], [place] Start: 05-26-2020 Creatinine monitoring Creatinine mon [place], [place] Start: 05-26-2020 Potassium monitoring Potassium monit [place], [place] Start: 05-24-2020 Creatinine monitoring Creatinine mon [place] Start: 05-24-2020 Potassium monitoring Potassium monit [place], [place] Start: 05-22-2020 Lipid screen Lipid screen [place], [place] Start: 08-23-2019 End: 08-23-2019 Office Visit 08/23/2019 Office Visit Neurology Jose Michael MD [address] [place], [place] [id number] [facility] Neuroscience Start: 07-05-2019 End: 07-05-2019 Office Visit 07/05/2019 Office Visit Neurology Ashleigh Mcmahon, TREE SURGEON HELPER - MAT MAN [address] [place], [place] [id number] [facility] Neurology Specialist Start: 06-17-2019 End: 06-17-2019 Office Visit 06/17/2019 Office Visit Neurology Gayathri Maradiaga MD [address] [place] [address] [phone] [facility] Start: 06-10-2019 End: 05-26-2020 CTA HEAD W CONTRAST CTA HEAD W CONTRAST Imaging Routine Subarachnoid hemorrhage (HCC) Expected: 06/10/2019, Expires: 05/26/2020 [place], [place] Comment on above: Expected: 06/10/2019 , Expires: 05/26/2020 Start: 05-30-2019 Patient encounter procedure Ambulatory Facility: Start: 11-14-2018 Influenza vaccination Flu vaccine (# 1) [place], [place] Start: 2012 Breast cancer screen Breast cancer s creen [place], [place] Start: 2012 Colon cancer screen colonoscopy Colon cancer screen colonoscopy [place], [place] Start: 2012 Shingles Vaccine (1 of 2) Shingles Vaccine (1 of 2) [place] Start: 12-14-1983 Cervical cancer screen Cervical canc er screen [place], [place] Start: 1977 HIV screen HIV screen [place], [place] End: 05-29-2019 Basic metabolic 2000 panel Basic metabolic panel Lab Routine Tomorrow AM for 7 Occurrences starting 05/23/2019 until 05/29/2019, 5 completed [place] Comment on above: Tomorrow AM for 7 Oc currences starting 05/23/2019 until 05/29/2019, 5 completed End: 05-29-2019 CBC CBC Lab Routine Tomorrow AM for 7 Occurrences starting 05/23/2019 until 05/29/2019, 5 completed [facility], [place] Comment on above: Tomorrow AM for 7 Oc currences starting 05/23/2019 until 05/29/2019, 5 completed End: 05-24-2019 CRYOGLOBULIN CRYOGLOBULIN Lab Routine One Time for 1 Occurrences starting 05/24/2019 until 05/24/2019 [facility] Comment on above: One Time for 1 Occur rences starting 05/24/2019 until 05/24/2019 CRYOGLOBULIN CRYOGLOBULIN Lab Routine 05/24/2019 11:29 AM EDT [facility], [place] End: 05-24-2019 FACTOR 5 LEIDEN FACTOR 5 LEIDEN Lab Routine One Time for 1 Occurrences starting 05/24/2019 until 05/24/2019 [facility] Comment on above: One Time for 1 Occur rences starting 05/24/2019 until 05/24/2019 End: 05-25-2019 Factor V Leiden Mutation Factor V Leiden Mutation Lab Routine Once for 1 Occurrences starting 05/25/2019 until 05/25/2019 [facility] Comment on above: Once for 1 Occurrenc es starting 05/25/2019 until 05/25/2019 Initiate Oxygen Ther apy Protocol [facility], [place] Comment on above: Daily until disconti nued starting 05/22/2019 Daily until disconti nued starting 05/24/2019 IR ANGIOGRAM CAROTID C EREBRAL BILATERAL IR ANGIOGRAM CAROTID C EREBRAL BILATERAL Imaging Routine 05/24/2019 10:21 AM EDT [facility], [place] End: 06-05-2019 Magnesium [Mass/Vol] Magnesium Lab Routine Daily for 14 Occurrences starting 05/23/2019 until 06/05/2019, 5 completed [facility] Comment on above: Daily for 14 Occurre nces starting 05/23/2019 until 06/05/2019, 5 completed End: 05-25-2019 Miscellaneous lab test #1 Miscellaneous lab test #1 Lab Add-On One Time for 1 Occurrences starting 05/25/2019 until 05/25/2019 [facility], RAGHAVENDRA Comment on above: One Time for 1 Occur rences starting 05/25/2019 until 05/25/2019 POCT glucose [facility] [place] Comment on above: 4X Daily (AC & HS) u ntil discontinued starting 05/24/2019 As Needed until disc ontinued starting 05/24/2019 Pulse Oximetry Spot Check Pulse Oximetry Spot Check Respiratory Care Routine As Needed until discontinued starting 05/24/2019 [facility] Comment on above: As Needed until disc ontinued starting 05/24/2019 Pulse oximetry, continuous Pulse oximetry, continuous Respiratory Care Routine Every 4hr until discontinued starting 05/23/2019 [facility] Comment on above: Every 4hr until disc ontinued starting 05/23/2019 Payers Date Payer Category Payer Self-pay [id number] 2014 Unknown [employer] PIP EFITTERS 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3.579.2.593 1960 Unknown [id number] 2.16.840.1.625120.3.579.2.593 1960 Unknown [id number] 2.16.840.1.002301.3.579.2.593 1960 Unknown [id number] 2.16.840.1.856084.3.579.2.176 1960 Unknown [id number] 2.16.840.1.702263.3.579.2.176 1960 Unknown [id number] 2.16.840.1.467308.3.579.2.176 1960 Unknown [id number] 2.16.840.1.167207.3.579.2.175 1960 Unknown [id number] 2.16.840.1.461431.3.579.2.125 9 1960 Unknown [id number] 2.16.840.1.328102.3.579.2.125 9 1960 Unknown [id number] 2.16.840.1.426465.3.579.2.125 9 1960 Unknown [id number] 2.16.840.1.457413.3.579.2.125 9 1959 Unknown [id number] Unknown [id number] 2.16.840.1.930651.3.579.2.531 Social History Date Type Detail Facility Start: 05-22-2019 End: 01-14-2021 Tobacco smoking status [facility] Never smoker [facility] Start: 05-22-2019 Alcohol intake Current drinke r of alcohol (finding) [place], [place] Start: 05-22-2019 Alcohol Comment Socially [place], [place] Sex Assigned At Not on file [place] Start: 1960 Sex Assigned At Female F [facility] Discharge summary note 11-17-2020 Note Date & Type Note Facility 11-17-2020 Note [facility] Patient: SULY HUFFMAN [id number] [id number] MR#: [id number] DISCHARGE SUMMARY : 64 Service Date: 11/17/20 [...] Ortho 11/21/20 For Providers: Anil Singer MD [address] [place] [address] CALL OFFICE ON THURSDAY FOR APPOINTMENT TIME ON THURSDAY FOR DRAIN REMOVAL Condition Improved, Stable, Good Disposition Home Electronically Signed eSign Date and Time Hina Richardson Nagin [facility] Evaluation note Note Date & Type Note Facility Evaluation note No assessment information availa [facility] Work Phone: Summary Purpose Family History No Family History Records Found Relationship Condition Age at Onset Recorded Date/T lily father Heart disease Unknown Malignant neoplasm Unknown Not Specified Hypertension Unknown sister Malignant neoplasm of thyroid gland Unkno wn Advance Directives No Advanced Directives Records FoundDocuments on File Type Date Recorded Patient Internet Webmaster Expl anation Advance Directives and Living Will Power of Clinical Biochemical Geneticist Latest Code Status on File Code Status Date Activated Date Inactivated Comments Full Code 05/24/2019 12:07 PM Full Code 05/22/2019 8:41 PM 05/24/2019 12:06 PM Documents on File Type Date Recorded Patient Internet Webmaster Expl anation Advance Directives and Living Will Power of Clinical Biochemical Geneticist Latest Code Status on File Code Status Date Activated Date Inactivated Comments Full Code 05/24/2019 12:07 PM 05/27/2019 7:58 PM Full Code 05/22/2019 8:41 PM 05/24/2019 12:06 PM Latest Code Status on File Code Status Date Activated Date Inactivated Comments Full Code 05/24/2019 12:07 PM 05/27/2019 7:58 PM Advance Directive Response Recorded Date/ Time Advance Directives No January 11, 2021 2:28pm Reason for Referral Status Reason Specialty Diagnoses / Procedures Referre d By Contact Referred To Contact Open Radiology Diagnoses Subarachnoid hemorrhage (HCC) Procedures CTA HEAD W CONTRAST Courtney Lion, TREE SURGEON HELPER - MAT MAN [address] [facility] [address] [place] [address] Status Reason Specialty Diagnoses / Procedures Referre d By Contact Referred To Contact Closed Radiology Diagnoses Subarachnoid hemorrhage (HCC) Procedures CTA HEAD W CONTRAST HC CTA rail car maintenance mechanicCourtney Lion APRN - CNP [address] [facility] [address] [place] [address] Discharge Instructions * Discharge Instr - Activity* Courtney Lion APRN - CNP - 05/27/2019 4:27 PM EDT No lifting greater than 10 pounds for 7 days post angio (through 05/31). Otherwise no restrictions. * Discharge Instr - Diet* Courteny Lion APRN - CNP - 05/27/2019 4:26 [...] most local grocery stores, pharmacies, and chain [employer]. ? If you have any questions about [...] Agent's Name Healthcare Agent's Phone Number 05/22/19 [phone] No, patient does not have an advance [...] Independent Dressing Independent Toileting Independent Feeding Assisted Assistant Finance Manager Independent Med Delivery crushed Wound Care Documentation [...] Respiratory Treatments: none Oxygen Therapy: {Therapy; copd oxygen:62731} Ventilator: { CC Vent List:642973416} Rehab Therapies: Speech/Language Therapy Weight Bearing Status/Restrictions: No weight bearing restirctions Other Medical Equipment (for information only, NOT a DME order): {EQUIPMENT:098483452} Other Treatments: Patient's personal belongings (please select all that are sent with patient): None RN SIGNATURE: CASE MANAGEMENT/SOCIAL WORK SECTION Inpatient Status Date: Readmission Risk Assessment Score: Readmission Risk Risk of Unplanned Readmission: 11 Discharging to Facility/ Agency Name: Address: Phone: Fax: Dialysis Facility (if applicable) Name: Address: Dialysis Schedule: Phone: Fax: Naturalist/Quenching Machine Operator signature: {Esignature:033751801} PHYSICIAN SECTION Prognosis: {Prognosis:7768099120} Condition at Discharge: {MH Patient Condition:299146704} Rehab Potential (if transferring to Rehab): {Prognosis:3986937492} Recommended Labs or Other Treatments After Discharge: Physician Certification: I certify the above information and transfer of Suly Huffman is necessary for the continuing treatment of the diagnosis listed and that she requires {Admit to Appropriate Level of Care:74953} for {GREATER/LESS:876861789} 30 days. Update Admission H&P: {CHP DME Changes in HandP:895705966} PHYSICIAN SIGNATURE: {Esignature:618460483} * Additional Instructions* Courtney Lion, TREE SURGEON HELPER - MAT MAN - 05/25/2019 Take your medications as prescribed. [...] be sent through Care Everywhere. * Seizure (Wallisian) * Subarachnoid Hemorrhage: General Info (Wallisian) documented in this encounter History of Present Illness * Kristin Rankin, PT - 05/26/2019 10:28 AM EDT Physical Therapy Facility/Department: [address] NEURO Daily Treatment Note NAME: Suly [...] 13 KRISTIN RANKIN PT * Sandra Lock, TREE SURGEON HELPER - MAT MAN - 05/26/2019 7:36 AM EDT Daily Progress [...] depression who presents as a transfer from [facility] for subarachnoid hemorrhage with 3 mm right [...] the day. Loaded with 2g Keppra followed [id number] BID. LTME started. 05/23: Two episodes of [...] mostly in the right anterior circulation, distal TYPESETTING MACHINE TENDER branches with moderate focal segmental vasospasm. Findings [...] factor in 2015 and was evaluated at [facility], but specialist at that time did not [...] mostly in the right anterior circulation, distal TYPESETTING MACHINE TENDER branches with moderate focal segmental vasospasm - [...] please contact Neuro Critical Care. Sandra Lock, TREE SURGEON HELPER - [facility] Neuro Critical Care Pager [phone] 05/26/2019 7:36 AM Associated attestation - Arleth Wilder MD - 05/27/2019 8:50 AM EDT Neuro critical care: CSF studies reviewed and WBCs elevated at 92 and RBC 10,000. Proteins elevated in 90s. Of note, patient reported today visiting [facility] 5 year s ago for elevated RA factor in 120s. No followup , clinical issues or diagnosis since. RA factor elevated again in 120s. Rheumatology consulted to evaluate for suspicion/ differential of TECHNICAL TRAINING COORDINATOR vasculitis. CSF sent to [facility] for autoimmune panel testing Continue keppra, verapamil [...] TRANSPORT. SAMPLES OBTAINED SENT TO LAB PER FOREST PATHOLOGIST RN. * Nancy Pérez OTA - 05/25/2019 11:38 AM EDT Occupational Therapy Facility/Department: [facility] NSICU Daily Treatment Note NAME: Suly Huffman : 1960 Date of Service: 05/25/2019 Discharge Recommendations: No therapy recommended at discharge. Goals were met this day, discussed with OTR, pt to be removed form case load. Assessment Performance deficits / Impairments: Decreased functional mobility ;Decreased fine motor control;Decreased high-level IADLs;Decreased ADL status Prognosis: Good OT Education: OT Role;Plan of Care Patient Education: purpose of OT; [facility] activity Barriers to Learning: pt sabine Pak [...] activity in order to improve ROM and hospice nurse practitioner for ADL tasks, pt sabine Pak understanding. [...] Minutes: 23 Minutes LAUREN Vann/Mikaela * Kristin Rankin PT - 05/25/2019 11:37 AM EDT Physical [...] further needs. KRISTIN RANKIN PT * Courtney Lion APRN - NIKITA - 05/25/2019 8:05 AM EDT Daily Progress [...] depression who presents as a transfer from [facility] for subarachnoid hemorrhage with 3 mm right [...] the day. Loaded with 2g Keppra followed [id number] BID. LTME started. 05/23: Two episodes of [...] mostly in the right anterior circulation, distal TYPESETTING MACHINE TENDER branches with moderate focal segmental vasospasm. Findings [...] 2203 102/72 80 26 94 % 05/24/19 210 95 % Estimated body mass index is [...] mostly in the right anterior circulation, distal TYPESETTING MACHINE TENDER branches with moderate focal segmental vasospasm - [...] Neuro Critical Care. Courtney Lion APRN - [facility] Neuro Critical Care Pager [phone] 05/25/2019 8:05 AM Associated attestation - Arleth [...] time. Will continue to monitor. * Maliha Gu, RN INTERNSHIP - 05/24/2019 2:28 PM EDT Physical Therapy [...] to palliative care. No further needs. MALIHA GU PTA * Karuna Kapadia RN - 05/24/2019 1:30 [...] SYSTEM PROVIDED HISTORY: SAH TECHNOLOGIST PROVIDED HISTORY: SAHRejose for Exam: SAH Acuity: Acute Type of [...] discussed with Dr. Iqbal at 7:56 p.m. Transcranial Doppler Complete Result Date: 05/23/2019 [facility] Vascular Transcranial Procedure Patient Name NATHANAEL Date of Study 05/23/2019 SULY M Date of 1960 Gender Female Age 58 year(s) Race Room Number 0523 Corporate ID [id number] # Patient Acct [id number] # MR # [id number] Credit Report Checker Carole Hooks RVT, ALVINNH Interpreting Gunnar Morgan Physician Referring Referring Physician SANDRA LOCK APRN-MAT MAN Nurse Practitioner Additional Comments CLASSIFICATION OF VASOSPASM [...] 85.1 Mid AMAIRANI: 83.9 Mid AMAIRANI: 105 TYPESETTING MACHINE TENDER: 32.3 TYPESETTING MACHINE TENDER: 22.7 T ICA: 40.4 T ICA: 37.7 [...] mostly in the right anterior circulation, distal TYPESETTING MACHINE TENDER branches with moderate focal segmental vasospasm - [...] 10 daily * Courtney Lion APRN - CNP - 05/24/2019 7:41 AM EDT Daily Progress Note Neuro Critical Care Patient Name: Suly Huffman Patient : 1960 Room/Bed: [address] [place] [address] Code Status: FULL Allergies: Allergies Allergen Reactions Augmentin [Amoxicillin-Pot Clavulanate] Diarrhea CHIEF COMPLAINT: Intermittent left sided paresthesias and weakness INTERVAL HISTORY Initial Presentation (Admitted 05/22/19): The patient is a 58 yo female with history of HTN, HLD, and depression who presents as a transfer from [facility] for subarachnoid hemorrhage with 3 mm right [...] the day. Loaded with 2g Keppra followed [id number] BID. LTME started. Last 24h: Two episodes [...] mostly in the right anterior circulation, distal TYPESETTING MACHINE TENDER branches with moderate focal segmental vasospasm. Findings [...] 2203 (!) 154/60 57 17 90 % 05/23/19 2103 139/64 57 15 94 % 05/23/192002 116/72 [...] mostly in the right anterior circulation, distal TYPESETTING MACHINE TENDER branches with moderate focal segmental vasospasm - [...] Neuro Critical Care. 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 Inpatient Daily Activity Raw Score: 20 (05/23/191114) [facility] Inpatient ADL T-Scale Score : 42.03 (05/23/191114) ADL Inpatient CMS 0-100% Score: 38.32 (05/23/191114) ADL Inpatient [facility] G-Code Modifier : CJ (05/23/191114) Goals Short [...] 9:33 AM EDT Speech Language Pathology Facility/Department: [address] Initial Speech/Language/Cognitive Assessment NAME: Suly Huffman : 1960 ADMISSION DATE: 05/22/2019 ADMITTING DIAGNOSIS: has Subarachnoid hemorrhage (HCC) on their problem list. Date of Eval: 05/23/2019 Evaluating Therapist: Diamond Barnes Primary Complaint: The patient is a 58 y.o. female presented as a transfer from [facility] after being found tohave subarachnoid hemorrhage and [...] Verbal and written education provided. Recommendations: Requires HOT DIMPLING 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 Intervention: No Plan: Goals: Patient/family involved [...] Group Co-treatment Time In 914 Time Out 925 Minutes 11 Completed by: Diamond Barnes, Platform Loader Clinician Cosigned By: Ashlee Grimm M.S.CCC/HOT DIMPLING 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 05/23/2019 9:34 AM * Amita Navarro [...] AMITA NAVARRO 8:35 AM * Sandra Lock, CLIFFORD - MAT MAN - 05/23/2019 8:26 AM EDT Daily Progress Note Neuro Critical Care Patient Name: Suly Huffman Patient : 1960 Room/Bed: [address] [place] [address] Code Status: Full Allergies: Allergies Allergen Reactions Augmentin [Amoxicillin-Pot Clavulanate] Diarrhea CHIEF COMPLAINT: Left sided numbness INTERVAL HISTORY Initial Presentation (Admitted 05/22/19): The patient is a 58 yo female with history of HTN, HLD, and depression who presents as a transfer from [facility] for subarachnoid hemorrhage with 3 mm right [...] status please contact Neuro Critical Care. Sandra Lock APRN - [facility] Neuro Critical Care Pager [phone] 05/23/2019 8:26 AM Associated attestation - Arleth [...] intake/output data recorded. LAB: CBC: Recent Labs 05/23/195305/23/19 0447 WBC 15.9* 14.1* HGB 14.8 15.0 HCT 47.0 47.1 MCV 94.0 92.9 PLT 296 300 BMP: Recent Labs 05/23/194 05/23/19 0447 NA 134* 136 K 3.4* 3.9 CL 98 99 CO2 23 24 BUN 16 15 CREATININE 0.63 0.72 GLUCOSE 110* 99 COAGS: No results for input(s): APTT, PROT, INR in the last 72 hours. RADIOLOGY: Dimas Chaney DO 05/23/19, 8:07 AM Attending Note I have reviewed the above [facility] resident progress note and I either [...] has loss of fine motor control. Weak hospice nurse practitioner, and able to weakly push/pull against resistance. Episode lasted less than 5 min * Cuong Barbosa DO - 05/22/2019 7:01 PM EDT Trauma [...] and content) DATE CREATED AUTHOR 05/24/[address] [facility] DATE CREATED AUTHOR AUTHOR'S ORGANIZ ATION 06/12/2019 [facility] DATE CREATED AUTHOR AUTHOR'S ORGANIZ ATION 06/14/2019 [facility] DATE CREATED AUTHOR AUTHOR'S ORGANIZ ATION 04/29/2021 [facility] DATE CREATED AUTHOR AUTHOR'S ORGANIZ ATION 09/11/2021 [facility] dical Specialist DATE CREATED AUTHOR AUTHOR'S ORGANIZ ATION 06/09/2023 [facility] d[facility] Specialists [facility] DATE CREATED AUTHOR AUTHOR'S ORGANIZ ATION 06/09/2023 [facility] Reason for Visit (unrecogniz ed section and content) Reason Comments Headache Anterior headache Numbness Intermittent LUE and LLE numbness and tingling since Thursday, SAH on CT Status Reason Specialty Diagnoses / Procedures Referre d By Contact Referred To Contact Diagnoses Subarachnoid hemorrhage (HCC) Cecilio Sherman MD [address] [place] [address] [facility] Status Reason Specialty Diagnoses / Procedures Referre d By Contact Referred To Contact Closed Radiology Diagnoses Subarachnoid hemorrhage (HCC) Procedures CTA HEAD W CONTRAST HC CTA rail car maintenance mechanicCourtney Lion, TREE SURGEON HELPER - MAT MAN [address] [facility] [address] [place] [address] Goals (unrecognized section and content) Goals may be documented in a n alternate sectionGoals may be documented in an alternate section Care Teams (unrecognized sec tion and content) Team Status: Inactive Member Role Status Dates Bart Liz Attending Provider Active Start: [facility] 2023 End: June 05, 2023 FOR RECORDS PERTAINING TO PATIENTS WHO ARE [...] BE BASED ON THE PRIMARY CLINICAL RECORDS. [facility] [employer] [facility]. provides no warranty or guarantee of the accuracy or completeness of information in this document.
[2023-06-18 10:35] LABS: Alanine Aminotransferase 26 U/L (14-59); Albumin Globulin Ratio 0.9; Albumin Level 3.3 g/dL (3.4-5.0); Alkaline Phosphatase 74 U/L (46-116); Anion Gap 13.5; Aspartate Amino Transferase 17 U/L (15-37); BUN Creatinine Ratio 19.6; Bilirubin Direct 0.1 mg/dL (0.0-0.2); Bilirubin Total 0.4 mg/dL (0.2-1.0); Calcium 9.2 mg/dL (8.5-10.1); Carbon Dioxide 27.1 mmol/L (21.0-32.0); Chloride 104 mmol/L (98-107); Estimated GFR (African America >60 (>=60); Estimated GFR (Non-African Ame 55 (>=60); Globulin 3.8 g/dL; Glucose 104 mg/dL (74-106); Potassium 3.6 mmol/L (3.5-5.1); Sodium 141 mmol/L (136-145); Total Protein 7.1 g/dL (6.4-8.2)
[2023-06-18 11:06] LABS: Basophils Absolute Auto 0.1 10^3/uL (0.0-0.1); Basophils Percent Auto 0.5 % (0.2-2.0); Eosinophils Absolute Auto 0.2 10^3/uL (0.0-0.7); Hematocrit 41.8 % (36.0-48.0); Hemoglobin 13.6 g/dL (12.0-16.0); Immature Granulocytes Abs Auto 0.06 10^3/uL (0.00-0.03); Immature Granulocytes Pct Auto 0.4 % (0.0-0.5); Lymphocytes Absolute Auto 2.3 10^3/uL (1.2-3.8); Lymphocytes Percent Auto 14.7 % (20.5-60.0); Mean Corpuscular HGB Conc 32.5 g/dL (29.9-35.2); Mean Corpuscular Hemoglobin 28.6 pg (26.7-34.0); Mean Corpuscular Volume 87.8 fL (81.0-99.0); Monocytes Absolute Auto 0.8 10^3/uL (0.3-0.8); Monocytes Percent Auto 5.1 % (1.7-12.0); Neutrophils Absolute Auto 12.1 10^3/uL (1.4-6.5); Neutrophils Percent Auto 78.3 % (43.0-75.0); Platelet Count 277 10^3/uL (150-450); Red Blood Count 4.76 10^6/uL (4.20-5.40); Red Cell Distribution Width 13.6 % (11.0-15.0); White Blood Count 15.4 10^3/uL (4.0-11.0)
[2023-06-18 11:11] LABS: INR 0.97; Partial Thromboplastin Time 28.2 sec (22.3-36.2); Prothrombin Time 10.3 sec (9.0-11.6)
== END 2023-06-18 08:57 | disposition home or self-care (01) ==
LOC: PST 08:57
PROVIDERS: PCP Family Medicine; Visit Provider Obstetrics & Gynecology
DX: Z01.810 Encounter for preprocedural cardiovascular examination (principal); N92.0 Excessive and frequent menstruation with regular cycle; R10.2 Pelvic and perineal pain; N94.6 Dysmenorrhea, unspecified; N94.10 Unspecified dyspareunia
CPT/HCPCS: 80048; 80076; 85025; 85610; 85730; 86850; 86900; 86901

== ENCOUNTER 2023-07-07 06:14 | Outpatient (OUT) | payer OTHER, SELFPAY ==
--- NOTE | 2023-07-07 06:15 | NM_ITS ---
Patient Name: SULY HUFFMAN MR#: [id number] : 1960 Exam Date: 07/07/2023 Ordering Doctor: DR NICOLA DAVID M.D. RADIOLOGY REPORT PROCEDURE: NM CLARKE PERF SPECT REST STR COMPARISON: None. INDICATIONS: ABNORMAL EKG, PREPROCEDURE CARDIOVASCULAR EXAM TECHNIQUE: Exam Description: Stress/Rest one day protocol gated SPECT Rest Imagin.0 mCi Tc-99m Cardiolite IV on 07/07/2023 Stress Imaging 30.5 mCi Tc-99m Cardiolite IV on 07/07/2023 Exercise Protocol: 0.4 mg Lexiscan given IV Heart Rate (bpm): Rest: 67 Max: 78 PMHR: 48 Blood Pressure: Rest: 154/74 Max: 157/74 Symptoms: Rest and peak stress ECG findings were abnormal and the exercise portion of the study was Non-diagnostic per attending physician Dr. Bridges due to EKG changes. For more details please see separate cardiac stress test report. FINDINGS: QUALITY OF STUDY: Excellent. PERFUSION DEFECT: None. LOCATION: N/A SIZE: N/A. SEVERITY: N/A. TYPE: N/A. WALL MOTION: Normal. LV SIZE: Normal. 99 mL. TID / TCD: None; 0.9 LVEF: Normal. Calculated EF 63%. SUMMARY: Myocardial perfusion imaging study is NORMAL. CONCLUSION: 1. No reversible ischemia 2. Nondiagnostic exercise test secondary EKG changes Dictated by: Gunnar Smith MD on 07/07/2023 at 13:27 Approved by: Gunnar Smith MD on 07/07/2023 at 13:29
--- OUTSIDE RECORDS SUMMARY | 2023-07-07 06:16 | XMS_ITS | CCD ---
Author Organization [facility] Care Team Providers Care Medical Chemist Name Role Phone WADDELL, SELINA S Admitting [...] Care Un available COURTNEY LION Referring Unavailable ELDAIA BRAN Primary Care Un available JOSE MICHAEL Consulting Unavailable ELADIA BRAN Primary Care Un available CECILIO SHERMAN Admitting Unavailable CECILIO SHERMAN Attending Unavailable LELA STEPHENS Consulting Unavailable DARRYN CHARLES Unavailable CECILIO SHERMAN Consulting Unavailable GARFIELD DUMONT Consulting Unavailable CRISTOPHER MCNAIR Consulting Unavailable GERALDINE HUSAIN Consulting Unavailable JESÚS DARBY Consulting Unavailable Eladia Bran Primary Care Provi archana Bart Liz Attending Provider Bart Liz Attending Unavailable Bart Liz Admitting Unavailable BART LIZ Attending Unavailable BART LIZ Attending Unavailable BART LIZ Attending Unavailable ELADIA DAVID Attending Unavailable WHIT GODINEZ Attending Unavailable Allergies Allergy Classification Reported Allergen(s) Allergy Type Date of Onset Reaction(s) Facility (2 sources) Amoxicillin / Clavulanate Drug Allergy 7 [facility] Repository (4 sources) Amoxicillin-Pot Clavulanate Propensity to adverse reactions to drug 0 [place], [place] (3 sources) Amoxicillin; Translations: [amoxicillin] Drug Allergy 1 [facility] (3 sources) Clavulanate; Translations: [clavulanic acid] Drug Allergy 1 [facility] Medications Current Medications Medication Drug Class(es) [...] 2100 docusate sodium 50 mg / sennosides, mcfp 8.6 mg oral tablet (1 source) Start: [...] take 1 tablet by mouth once daily Triamterene-[place] chlorothiazid Active 1 TAB PO Daily January [...] by mouth every six hours Hydrocodone-Acetam inophen ([place]) 5-325 mg Tablet Discontinued 1 TAB PO [...] 05-22-2019 Chronic Other aftercare (1 source) Other watcher automat long goods (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; Translations: [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 CURRENT DRUG THERAPY] Onset: 05-24-2019 Episodic Other [...] Test Name Value Interpretation Reference Range Facility [facility] 06-04-2023 L Specimen: [id number] Received: 06/05/23 Status: SALVATORE King Num: [id number] Spec Type: Surgical Subm Dr: Bart Liz Tissues: A Endometrium - Curettings (EMC) Procedures: HE/2, Gross/Micro L4 Age/ Patient Sex Location Account Attending Physician Suly Huffman 62/F LABELL [id number] Bart Liz SPEC NUM: [id number] RECD: 06/05/23 STATUS: SALVATORE KING NUM: [id number] VICENTE: 06/04/[address]: Bart Liz ENTERED: 06/05/[address]: Franco,Lab SPEC TYPE: Surgical DEPT: MARQUIS [...] in one cassette labeled A1. CPT Codes 77829 ---- ---- Specimen: [id number] Received: 06/05/23-1349 Status: SALVATORE King Num: [id number] Spec Type: Surgical Subm Dr: Bart Liz Tissues: A Endometrium - Curettings (EMC) Procedures: HE/Ania, Gross/Micro L4 ---- Patient: Suly Huffman [id number] (Continued) ---- Signed (signature on file) Shea Jovel MD 06/08/23 1447 [facility] SCREENING MAMMOGRAM W/BOSSMAN, BILATERAL*on 09-10-2021 SCREENING MAMMOGRAM [...] VERY IMPORTANT TO YOUR HEALTH. THE CURRENT [place] [employer] GUIDELINES RECOMMENDS ANNUAL MAMMOGRAPHY BEGINNING AT AGE 42 THIS FACILITY USES A REMINDER SYSTEM TO ENSURE ALL PATIENTS RECEIVE REMINDER NOTIFICATIONS AT THE APPROPRIATE TIME BASED ON THE RECOMMENDATIONS OF THIS EXAM. Report reported and signed by Salo Pacheco on 09/10/2021 1532 Normal [facility] Discharge CCD Assessmenton 0 11-19-2020 Discharge CCD Assessment [facility] Patient: SULY HUFFMAN [address] [place], [place] [id number] MR#: [id number] DISCHARGE CCD ASSESSMENT : 64 Service Date: 11/19/20 0853 Discharge CCD Assessment Assessment Mr Huffman, 59 y/o C f. PMHx of HTN, unprovoked hemorrhagic CVA (2020), HLD, CHRISTIE, obesity, rosacea, CHAPIS. S/p L4-L5 decompressive laminectomy POD#1, done for lumbar stenosis. Surgery was uneventful, with minimal blood loss, done under general anaesthesia. Postoperative period is uneventful. Vitally and medically stable. Ambulates with help since yesterday evening. No Lui, has drainage. Going home with drainage, ppx Abx prescribed. Electronically Signed eSign Date and Time Hina Richardson Residen Normal [facility] Anesthesia Noteon 11-17-2020 Anesthesia Note [facility] Patient: SULY HUFFMAN [address] [id number] MR#: [id number] ANESTHESIA NOTE : Service Date: 11/17/20 1223 [...] Llamas 11/17/20 1224 Garland Harris MD Normal [facility] BASIC MET PANELon 11-17-2020 Anion gap [Moles/Vol] 12 mmol/L Normal 6-18 [facility] Comment on above: Performed By: #### L 500.20249, L500.33348 ####Test performed at: [address] [address] Calcium [Mass/Vol] 8.2 mg/dL Low 8.5-10.1 [facility] Comment on above: Performed By: #### L 500.62733, L500.54584 ####Test performed at: [address] [address] Chloride [Moles/Vol] 100 mmol/L Normal 98-107 [facility] Comment on above: Performed By: #### L 500.13367, L500.11609 ####Test performed at: [address] [address] CO2 [Moles/Vol] 27 mmol/L Normal 21-32 [facility] Comment on above: Performed By: #### L 500.97009, L500.25069 ####Test performed at: [address] [address] Creatinine [Mass/Vol] 0.909 mg/dL Normal 0.550-1.020 [facility] Comment on above: Performed By: #### L 500.08885, L500.87329 ####Test performed at: [address] [address] Glucose [Mass/Vol] 190 mg/dL High 70-99 [facility] Comment on above: Result Comment: Fast ing GLUCOSE reference range has been updated per (ADA) English Diabetes Association's recommendation. 06/08/2018 Performed By: #### L 500.34346, L500.37799 ####Test performed at: [address] [address] OSM 289 mosm/kg Normal 270-300 [facility] Comment on above: Performed By: #### L 500.13138, L500.33069 ####Test performed at: [address] [address] Potassium [Moles/Vol] 3.2 mmol/L Critically low 3.5-5.1 [facility] Comment on above: Result Comment: Crit ical Result(s) Called at: 09:36:29 on 11/17/2020 by: Diana Fontaine and read back by: trinh pandey Performed By: #### L 500.35236, L500.46984 ####Test performed at: [address] [address] Sodium [Moles/Vol] 136 mmol/L Normal 136-145 [facility] Comment on above: Performed By: #### L 500.96720, L500.02531 ####Test performed at: [address] [address] Urea nitrogen [Mass/Vol] 17 mg/dL Normal 7-18 [facility] Comment on above: Performed By: #### L 500.60914, L500.60595 ####Test performed at: [address] [address] GFR ESTIMATEon 11-17-2020 IF AMER > 60 Normal > 60 [facility] Comment on above: Result Comment: eGFR (Estimated GFR) Units of measure:mL/min/1.73 meters sq. *CALCULATION REVISED 01/02/2015;IDMS-traceable MDRD equation eGFR is derived from the reexpressed MDRD Study equation using the following parameters: serum creatinine, age, gender and race. An eGFR<60 mL/min/1.73m2 for >3 months is consistent with chronic kidney disease. Refer to KDOQI guidelines for clinical interpretation. Performed By: #### L 500.43562, L500.32132 ####Test performed at: [place] [address] IF non-AFR AMER > 60 Normal > 60 [facility] Comment on above: Performed By: #### L 500.40496, L500.35794 ####Test performed at: [place] [address] HGB AND HCTon 11-17-2020 Hematocrit (Bld) [Volume fraction] 39.2 % Normal 36.0-48.0 [facility] Comment on above: Performed By: #### L 200.01564 ####Test performed at: [address] [place] [address] Hemoglobin (Bld) [Mass/Vol] 13.4 g/dL Normal 12.0-15.0 [facility] Comment on above: Performed By: #### L 200.74983 ####Test performed at: [place] [address] Internal Med Progress Noteon 11-17-2020 Internal Med Progress Note [facility] Patient: SULY HUFFMAN [address] [place] [address] MR#: [id number] PROGRESS NOTE - Internal Medicine : 64 Service Date: 11/17/20 0556 Assessment/Plan-Cycle Liaison al Med Be sure to note changes Be sure to note changes Electronically Signed eSign Date and Time Hina Richardson Residen Normal [facility] Internal Med Progress Note [facility] Patient: SULY HUFFMAN [address] [place] [address] MR#: [id number] PROGRESS NOTE - Internal Medicine : 64 Service Date: 11/17/20 0554 Subjective Primary Resident: Miki Richardson After Hours Call: [phone] Red Team Summary of Stay Mr Huffman, [...] 11/17 0110 O2 Delivery ROOM AIR 11/17 0110 Temp 36.3 11/17 0110 Pulse 64 11/17 0110 Resp 20 11/17 0110 O2 Flow Rate 3.0 11/16 1930 Intake AND Output Verdana 4d 11/17 2300 11/16 2300 Intake Total 1480 480 Output Total 30 230 Balance 1450 250 Intake, IV 1000 Oral 480 480 utput, 30 30 rainage Output, Urine 0 200 Patient 95.45 kg eight Weight PREADMISSION TESTING WGT easurement ethod Assessment/Plan-Cycle Liaison al Med Problem List 1. S/P laminectomy [...] Agree with above documentation. The [resident's, PA's, FARM TRACTOR MECHANIC's] assessment and plan reflect my input. Discussed with documenting provider and patient. Plan is as outlined above. Electronically Signed eSign Date and Time Hina Richardson Massiel Res Hause-Wardega, Katarzyn a MD 11/17/20 1125 Normal [facility] OT Therapy Recommendationson 11-17-2020 OT Therapy Recommendations [facility] Patient: SULY HUFFMAN [address] [place] [address] MR#: [id number] OT THERAPY RECOMMENDATIONS : 64 Service Date: 11/17/20 1037 Therapy Recommendations Therapy Recommendations Recommendations Occupational therapy eval complete. Continue acute OT as per POC. Recommend d/c home with family assist. See OT eval for details. Electronically Signed eSign Date and Time Brynn Suero OT Rich 11/17/20 1038 Tammi Ham OT Normal [facility] PT Therapy Recommendationson 11-17-2020 PT Therapy Recommendations [facility] Patient: SULY HUFFMAN [address] [id number] MR#: [id number] PT THERAPY RECOMMENDATIONS : 64 Service Date: 11/17/20 1123 Therapy Recommendations Therapy Recommendations Recommendations PT eval complete. No further acute PT needs. Recommend d/c home when medically cleared. Electronically Signed eSign Date and Time Bettie Sorensen PT 11/17/20 1123 Normal [facility] z OT Inpatient Evaluationon 11-17-2020 z OT Inpatient Evaluation [facility] Patient: SULY HUFFMAN [address] [address] MR#: [id number] OT INPATIENT EVALUATION : 64 Inpatient OT HPI Date of Service 11/17/20 Time In: 915 Time Out: 938 Total Treatment Time (Mins) 23 Visit Reason LUMBAR STENOSIS Surgery Type/Date L4-L5 decompressive laminectomy 11/16/20 Referral Date 11/17/20 Tx Diagnosis: LUMBAGO Insurance Name [employer] Course Pt is a 59 y/o F [...] ADL Equipment Elev. Toilet Seat w Arms, Dental Technology Advisor, Shower Chair Bedroom Location 1st Floor Bathroom [...] Gait Trainin (more content not included)... Normal [facility] z PT Inpatient Discharge Not efraín 11-17-2020 z PT Inpatient Discharge Note [facility] Patient: SULY HUFFMAN [address] [id number] MR#: [id number] PT INPATIENT DISCHARGE NOTE : 64 Service [...] Time Bettie Sorensen PT 11/17/20 1436 Normal [facility] z PT Inpatient Evaluationon 11-17-2020 z PT Inpatient Evaluation [facility] Patient: SULY HUFFMAN [address] [id number] MR#: [id number] PT INPATIENT EVALUATION : 64 Service Date: 11/17/20 1146 Inpatient PT HPI Date of Service 11/17/20 Time In: 15 Time Out: 0940 Total Treatment Time (Mins) 25 Room Number 617 Visit Reason LUMBAR STENOSIS Surgery Type: Luis L4-5 decompressive lami Surgery Date: 11/16/20 Referral Date 11/16/20 Tx Diagnosis: LOW BACK PAIN Insurance Name [employer] Course 59 y.o female [facility] for above sx d/t lumbar [...] Time Bettie Sorensen PT 11/17/20 1444 Normal [facility] H & Bj 11-16-2020 H & P [facility] Patient: SULY HUFFMAN [address] [place] [address] MR#: [id number] HISTORY and PHYSICAL : Service Date: 11/16/20 [...] Days #21 TABLET, Ref 0 Prescribed by ELANNE BHATIA on 11/16/20 Last Action: Held on [...] Ox 100 11/16 1121 B/P 169/88 11/16 112 Temp 37.1 11/16 1121 Pulse 62 11/16 [...] Non-tender Ext (more content not included)... Normal [facility] OPERATIVE REPORTon OPERATIVE REPORT This is a preliminar y report only. This report will be final only after practitioner review and authentication has occurred. NAME: SULY HUFFMAN MR#: [id number] SURGEON: Anil Singer MD DATE OF SURGERY: [...] L3-4 DICTATION ENDS HERE ANIL SINGER MD JFS/MODL/[id number] E/S: Electronically Signed [facility] PT NAME: SULY HUFFMAN MR#: [id number] [address] [place] [address] ACCT: [id number] : 64 OPERATIVE REPORT Normal [facility] OPERATIVE REPORT NAME: SULY HUFFMAN MR#: [id number] SURGEON: Anil Singer MD DATE OF SURGERY: [...] paraspinal muscles were injected with RECKs. [facility], [facility] PT NAME: SULY HUFFMAN MR#: [id number] [address] [place] [address] ACCT: [id number] : 64 OPERATIVE REPORT subcutaneous tissues, and skin were closed in the usual manner. Dressings were applied. The patient was woken, taken to recovery room in excellent condition. There were no complications. MD EUFEMIA ROUSSEAU/LUCAS/[id number] E/S: Anil Singer MD 12/10/20 0937 Electronically Signed [facility] PT NAME: SULY HUFFMAN MR#: [id number] [address] [place], [place] [address] ACCT: [id number] : 64 OPERATIVE REPORT Normal [facility] Primary Residenton Primary Resident [facility] Pt Name: SULY HUFFMAN MR#: [id number] [address] [place] [address] ACCT: [id number] [address] [id number] : 64 Service Date: 11/16/202024 Primary Resident/Call Primary Resident: Miki Richardson After Hours Call: [phone] Red Team Electronically Signed eSign Date and Time Jean Claude Dalal [place] Resident 11/17/20 1151 Normal [facility] LUMBAR SPINE 2 OR 3 VIEWSon 11-15-2020 LUMBAR SPINE 2 OR 3 VIEWS STUDY: LUMBAR SPINE 2 OR 3 VIEWS; ; 11/16/2020 4:33 pm INDICATION: B/L L4-5 DECOMPRESSION LAMINECTOMY . COMPARISON: No imaging. ACCESSION NUMBER(S): [id number] ORDERING CLINICIAN: Anil Singer FINDINGS: Fluoroscopy time: 5 seconds. 2 intraoperative fluoroscopic still frame images of the lumbar spine were submitted. Images demonstrate localization at the L4-L5 interspace with probe/surgical component. IMPRESSION: Surgical localization at the L4-L5 interspace. Please see operative report regarding procedural details. Normal [facility] CORONAVIRUSon 11-13-2020 SARS-CoV-2 (COVID-19) RNA FERNY+probe [...] available on the FDA website: https://www.fda.gov/Me dicalDevices/Safety/ EmergencySituations/ b308316.htm COVID-19 Negative for COVID-19 (SARS-CoV-2 RNA) Normal [facility] Comment on above: Order Comment: CBN: YESCampus: MAINCOVID Testing: PRE-OP/PROCEDURE SCREENComment: GE at Spec VICENTE 59Report age at specimen VICENTE? YFirst test: UNKNOWNEmployed in Healthcare: NOSymptomatic as defined by CDC: NOHospitalized for COVID-19? NOICU: NOResident in a [facility] Care Setting: NOOrder Date: 11/13/20: Not Performed By: #### M 400.88067 ####Test performed at: [address] [address] COMP META PANELon 11-07-2020 Albumin [Mass/Vol] 3.9 g/dL Normal 3.4-5.0 [facility] Comment on above: Performed By: #### L 500.79463, L500.27156 #### Test performed at: [address] [address] ALK PHOS TOTAL 61 U/L Normal 45-117 [facility] Comment on above: Performed By: #### L 500.06580, L500.30175 #### Test performed at: [address] [address] ALT [Catalytic activity/Vol] 131 U/L High 13-61 [facility] Comment on above: Performed By: #### L 500.85673, L500.48407 #### Test performed at: [address] [address] AST [Catalytic activity/Vol] 126 U/L High 15-37 [facility] Comment on above: Performed By: #### L 500.29358, L500.96691 #### Test performed at: [address] [address] BILI TOTAL 0.4 mg/dL Normal 0.2-1.0 [facility] Comment on above: Performed By: #### L 500.04506, L500.91124 #### Test performed at: [address] [address] Calcium [Mass/Vol] 9.1 mg/dL Normal 8.5-10.1 [facility] Comment on above: Performed By: #### L 500.11550, L500.26825 #### Test performed at: [address] [address] Chloride [Moles/Vol] 102 mmol/L Normal 98-107 [facility] Comment on above: Performed By: #### L 500.72426, L500.45258 #### Test performed at: [address] [address] CO2 [Moles/Vol] 28 mmol/L Normal 21-32 [facility] Comment on above: Performed By: #### L 500.97073, L500.06597 #### Test performed at: [address] [address] Creatinine [Mass/Vol] 0.755 mg/dL Normal 0.550-1.020 [facility] Comment on above: Performed By: #### L 500.86920, L500.02812 #### Test performed at: [address] [address] Glucose [Mass/Vol] 75 mg/dL Normal 70-99 [facility] Comment on above: Result Comment: Fast ing GLUCOSE reference range has been updated per (ADA) English Diabetes Association's recommendation. 06/08/2018 Performed By: #### L 500.58137, L500.10530 #### Test performed at: [address] [address] Potassium [Moles/Vol] 3.6 mmol/L Normal 3.5-5.1 [facility] Comment on above: Performed By: #### L 500.15917, L500.76418 #### Test performed at: [address] [address] Protein [Mass/Vol] 7.1 g/dL Normal 6.4-8.2 [facility] Comment on above: Performed By: #### L 500.64128, L500.06853 #### Test performed at: [address] [address] Sodium [Moles/Vol] 137 mmol/L Normal 136-145 [facility] Comment on above: Performed By: #### L 500.25758, L500.97495 #### Test performed at: [address] [address] Urea nitrogen [Mass/Vol] 18 mg/dL Normal 7-18 [facility] Comment on above: Performed By: #### L 500.72571, L500.82927 #### Test performed at: [address] [address] GFR ESTIMATEon 11-07-2020 IF AMER > 60 Normal > 60 [facility] Comment on above: Result Comment: eGFR (Estimated GFR) Units of measure:mL/min/1.73 meters sq. *CALCULATION REVISED 01/02/2015;IDMS-traceable MDRD equation eGFR is derived from the reexpressed MDRD Study equation using the following parameters: serum creatinine, age, gender and race. An eGFR<60 mL/min/1.73m2 for >3 months is consistent with chronic kidney disease. Refer to KDOQI guidelines for clinical interpretation. Performed By: #### L 500.19258, L500.82583 #### Test performed at: [address] [address] IF non-AFR AMER > 60 Normal > 60 [facility] Comment on above: Performed By: #### L 500.81461, L500.99184 #### Test performed at: [address] [address] CBC W/DIFFon 11-06-2020 BASO ABS 0.1 K/uL Normal 0.0-0.2 [facility] Comment on above: Performed By: #### L 200.93882 #### Test performed at: [address] [address] Basophils/100 WBC (Bld) 0.9 % Normal [facility] Comment on above: Performed By: #### L 200.28994 #### Test performed at: [address] [address] EOS ABS 0.2 K/uL Normal 0.0-0.5 [facility] Comment on above: Performed By: #### L 200.92381 #### Test performed at: [address] [address] Eosinophils/100 WBC (Bld) 2.0 % Normal [facility] Comment on above: Performed By: #### L 200.41439 #### Test performed at: [address] [address] IG % 0.3 % Normal [facility] Comment on above: Performed By: #### L 200.31609 #### Test performed at: [address] [address] IG ABS 0.03 K/uL Normal 0-0.05 [facility] Comment on above: Performed By: #### L 200.63831 #### Test performed at: [address] [address] Lymphocytes (Bld) [#/Vol] 3.3 10*3/uL Normal 1.2-3.5 [facility] Comment on above: Performed By: #### L 200.42408 #### Test performed at: [address] [address] Lymphocytes/100 WBC (Bld) 36.1 % Normal [facility] Comment on above: Performed By: #### L 200.67414 #### Test performed at: [address] [address] MONO ABS 0.7 K/uL Normal 0.0-1.0 [facility] Comment on above: Performed By: #### L 200.25715 #### Test performed at: [address] [address] Monocytes/100 WBC (Bld) 7.9 % Normal [facility] Comment on above: Performed By: #### L 200.51182 #### Test performed at: [address] [address] NEUTROPHIL ABS 4.8 K/uL Normal 1.4-6.6 [facility] Comment on above: Performed By: #### L 200.17802 #### Test performed at: [address] [address] Neutrophils/100 WBC (Bld) 52.8 % Normal [facility] Comment on above: Performed By: #### L 200.66765 #### Test performed at: [address] [address] Erythrocyte distribution width (RBC) [Ratio] 14.1 % Normal 11.5-14.5 [facility] Comment on above: Performed By: #### L 200.84958 #### Test performed at: [address] [address] Hematocrit (Bld) [Volume fraction] 45.7 % Normal 36.0-48.0 [facility] Comment on above: Performed By: #### L 200.36288 #### Test performed at: [address] [address] Hemoglobin (Bld) [Mass/Vol] 14.8 g/dL Normal 12.0-15.0 [facility] Comment on above: Performed By: #### L 200.22150 #### Test performed at: [place] [address] MCH (RBC) [Entitic mass] 30.3 pg Normal 25.4-34.6 [facility] Comment on above: Performed By: #### L 200.89808 #### Test performed at: [address] [address] MCHC (RBC) [Mass/Vol] 32.4 g/dL Normal 31.5-36.5 [facility] Comment on above: Performed By: #### L 200.77302 #### Test performed at: [address] [address] MCV (RBC) [Entitic vol] 93.5 fL Normal 79.0-98.0 [facility] Comment on above: Performed By: #### L 200.18202 #### Test performed at: [address] [address] NRBC # 0.000 K/uL Normal 0-0.012 [facility] Comment on above: Performed By: #### L 200.44420 #### Test performed at: [address] [address] NRBC % 0.0 /100 WBC Normal 0-0.2 [facility] Comment on above: Performed By: #### L 200.30368 #### Test performed at: [address] [address] Platelet mean volume (Bld) [Entitic vol] 10.3 fL Normal 8.7-12.4 [facility] Comment on above: Performed By: #### L 200.90515 #### Test performed at: [address] [address] Platelets (Bld) [#/Vol] 219 10*3/uL Normal 140-440 [facility] Comment on above: Performed By: #### L 200.38056 #### Test performed at: [address] [address] RBC (Bld) [#/Vol] 4.89 10*6/uL Normal 3.5-5.5 [facility] Comment on above: Performed By: #### L 200.03991 #### Test performed at: [address] [address] WBC (Bld) [#/Vol] 9.1 10*3/uL Normal 3.9-11.0 [facility] Comment on above: Performed By: #### L 200.32793 #### Test performed at: [address] [address] CHEST PA/AP & LATERALon 10-15 CHEST PA/AP & LATERAL STUDY: CHEST PA/AP LATERAL; 11/06/2020 12:57 pm INDICATION: SOB/PAT. COMPARISON: None. ACCESSION NUMBER(S): [id number] ORDERING CLINICIAN: Ricky Adame FINDINGS: The lungs are clear without pleural effusion. Mild cardiomegaly. Otherwise unremarkable mediastinum, pedro, and pulmonary vasculature. IMPRESSION: No active disease in the chest. Normal [facility] CONSULTATION REPORTon 2020 CONSULTATION REPORT NAME: SULY HUFFMAN MR#: [id number] TOOL OPERATOR: Ricky Adame MD DATE OF CONSULTATION: 11/06/2020 [...] is cleared for anesthesia with acceptable risk. [facility] PT NAME: SULY HUFFMAN MR#: [id number] [address] [place] [address] ACCT: [id number] : 64 CONSULTATION Thank you for the courtesy of this consultation. RICKY ADAME MD MS/LUCAS/[id number] E/S: Ricky Adame MD 11/06/20 1746 Electronically Signed [facility] PT NAME: SULY HUFFMAN MR#: [id number] [address] [place] [address] ACCT: [id number] : 64 CONSULTATION Normal [facility] OPERATIVE REPORTon OPERATIVE REPORT NAME: SULY HUFFMAN MR#: [id number] SURGEON: Anil Singer MD DATE OF SURGERY: [...] condition. There were no complications. MD EUFEMIA ROUSSEAU/LUCAS/[id number] E/S: Anil Singer MD 08/09/20 1207 Electronically Signed [facility] PT NAME: SULY HUFFMAN MR#: [id number] [address] [place] [address] ACCT: [id number] : 64 OPERATIVE REPORT Normal [facility] CORONAVIRUSon 07-20-2020 SARS-CoV-2 (COVID-19) RNA FERNY+probe [...] on the FDA website: https://www.fda.gov/Me dicalDevices/Safety/ EmergencySituations/uc g472294.htm COVID-19 Negative for COVID-19 (SARS-CoV-2 RNA) Normal [facility] Comment on above: Order Comment: CBN: YES [place]: MAIN COVID Testing: PRE-OP/PROCEDURE SCREEN Comment: 07/24 AGE at Spec VICENTE 59 Report age at specimen VICENTE? Y First test: UNKNOWN Employed in Healthcare: NO Symptomatic as defined by CDC: NO Hospitalized for COVID-19? NO ICU: NO Resident in a Congregated Care Setting: NO Order Date: 07/20/20 : Not Performed By: #### M [phone] #### Test performed at: [place] [address] MRI LUMBAR SP WO CONTRASTon 07-04-2020 MRI LUMBAR SP WO CONTRAST STUDY: MRI LUMBAR SP WO CONTRAST; 07/04/2020 10:30 am INDICATION: BACK PAIN. COMPARISON: None. ACCESSION NUMBER(S): [id number] ORDERING CLINICIAN: Anil Singer TECHNIQUE: Sagittal T1, [...] Multifocal degenerative changes as described above Normal [facility] LUMB SP COMP W FLEX/EXT 6 VW Son 06-20-2020 LUMB SP COMP W FLEX/EXT 6 VWS STUDY: LUMB SP COMP W FLEX/EXT 6 VWS ; 06/20/2020 11:35 am INDICATION: PAIN. COMPARISON: None. ACCESSION NUMBER(S): [id number] ORDERING CLINICIAN: Anil Singer FINDINGS: Mild dextroscoliosis centered at L3-4. No acute fracture or subluxation of the lumbar spine. Moderate multilevel degenerative disc height loss most pronounced at L3-4. Scattered endplate osteophytes. Lower lumbar predominant facet arthropathy. No spondylolisthesis. No pars defects identified. No instability on flexion or extension. IMPRESSION: Degenerative changes and scoliosis of the lumbar spine without instability. Normal [facility] SACRUM/COCCYXon 06-20-2020 SACRUM/COCCYX STUDY: SACRUM/COCCYX; 06/20/2020 10:10 am INDICATION: PAIN. COMPARISON: None. ACCESSION NUMBER(S): [id number] ORDERING CLINICIAN: Anil Singer FINDINGS: Degenerative changes of the sacroiliac joints. No definite erosions. No definite acute fracture identified. IMPRESSION: Degenerative changes of the sacroiliac joints. Normal [facility] IR ANGIOGRAM CAROTID CEREBRA L BILATERALon [...] 70 minutes. Neurointerventionalist : Jose Michael MD [place]: MD Nicolasa Beard MD Comparison: None Fluoroscopy [...] a single-wall needle technique, and a 5 Congolese intravascular sheath was placed within the right common femoral artery, establishing arterial access. A 5 Congolese multipurpose catheter was then advanced over a [...] focal segmental narrowing. There is a right SEAFOOD AND SERVICE MEAT MANAGER noted. Otherwise no other evidence of cerebral [...] and distal branches. There is a left SEAFOOD AND SERVICE MEAT MANAGER noted. Inspection of the remaining left internal [...] and venous phase images were unremarkable. Right ANALYSIS DIRECTOR technique: A right common femoral artery angiogram [...] narrowing/vasospasm mostly in the right anterior circulation,?distal SEAFOOD AND SERVICE MEAT MANAGER branches with moderate focal segmental vasospasm.? 2. 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 Vasculitis cannot be ruled out. 3. Normal variants include bilateral line driver. Dr. Gayathri Maradiaga dictated this invasive procedure. [...] Jose Michael MD 06/14/19 Final result Normal [facility] CTA HEAD W CONTRASTon 2019 CTA [...] Dawna Meade MD 06/10/19 Final result Normal [facility] No intracranial flow-limiting stenosis or aneurysm. [facility], [place] EXAMINATION: CTA OF THE HEAD WITH CONTRAST [...] fluid collection. The varner-white differentiation is maintained. [facility] [place], [place] Juancarlos, pn Incoming Radiant Results From [place]/[employer] - 06/10/2019 4:49 PM EDT EXAMINATION: CTA [...] IMPRESSION: No intracranial flow-limiting stenosis or aneurysm. [place], [place] XR CHEST (2 VW)on 06-10-2019 XR CHEST (2 VW) EXAMINATION: TWO XRAY VIEWS OF THE CHEST 06/10/2019 11:09 am COMPARISON: Chest 05/24/2019 HISTORY: ORDERING SYSTEM PROVIDED HISTORY: Vasculitis (FORMERLY [facility]) TECHNOLOGIST PROVIDED HISTORY: Reason for Exam: vasculitis [...] Uzair Jon MD 06/10/19 Final result Normal [facility] XR CHEST STANDARD (2 VW)on 0 06-10-2019 Focal subsegmental atelectasis or focal pneumonia mid to lateral lower left lung. Chest radiograph series appears otherwise unremarkable. [place] EXAMINATION: TWO XRA Y VIEWS OF THE CHEST 06/10/2019 11:09 am COMPARISON: Chest 05/24/2019 HISTORY: ORDERING SYSTEM PROVIDED HISTORY: Vasculitis (FORMERLY [facility]) TECHNOLOGIST PROVIDED HISTORY: Reason for Exam: vasculitis Acuity: Acute Type of Exam: Initial FINDINGS: The cardiomediastinal and hilar silhouettes appear unremarkable. Focal density partially obscures mid to lateral aspect of the left hemidiaphragm on frontal view. The right lung appears clear. No pleural effusion evident. No pneumothorax is seen. No acute osseous abnormality is identified. [facility] Juancarlos, Mhpn Incoming Radiant Results From [employer] - 06/10/2019 11:47 AM EDT EXAMINATION: TWO [...] lung. Chest radiograph series appears otherwise unremarkable. [facility] Cryoglobulinson 05-30-2019 Cryoglobulins 0 mg/dL Normal 0-10 [facility] Comment on above: Performed By: #### C DP, BMP, LIPR, MG, GLYHGB #### [employer] [address] [place] [address] Coordinate Measuring Machine Operator: Zaki Humphries MD Basic Metabolic Profon 05-26 (cont.) Normal [facility] Comment on above: Result Comment: Aver age GFR for 50-59 years old: 93 mL/min/1.73sq m Chronic Kidney Disease: <60 mL/min/1.73sq m Kidney failure: <15 mL/min/1.73sq m eGFR calculated using average adult body mass. Additional eGFR calculator available at: http://www.Certus.Infinia/multiple_crcl_2012.htm Performed By: #### C DP, BMP, LIPR, MG, GLYHGB #### [employer] [address] [place] [address] Coordinate Measuring Machine Operator: Zaki Humphries MD Anion gap [Moles/Vol] 12 mmol/L Normal 9-17 [facility] Comment on above: Performed By: #### C DP, BMP, LIPR, MG, GLYHGB #### [address] [address] Coordinate Measuring Machine Operator: Zaki Humphries MD Calcium [Mass/Vol] 9.0 mg/dL Normal 8.6-10.4 [facility] Comment on above: Performed By: #### C DP, BMP, LIPR, MG, GLYHGB #### [address] [address] Coordinate Measuring Machine Operator: Zaki Humphries MD Chloride [Moles/Vol] 102 mmol/L Normal 98-107 [facility] Comment on above: Performed By: #### C DP, BMP, LIPR, MG, GLYHGB #### [address] [address] Coordinate Measuring Machine Operator: Zaki Humphries MD CO2 [Moles/Vol] 23 mmol/L Normal 20-31 [facility] Comment on above: Performed By: #### C DP, BMP, LIPR, MG, GLYHGB #### [address] [address] Coordinate Measuring Machine Operator: Zaki Humphries MD Creatinine [Mass/Vol] 0.59 mg/dL Normal 0.50-0.90 [facility] Comment on above: Performed By: #### C DP, BMP, LIPR, MG, GLYHGB #### [address] [address] Coordinate Measuring Machine Operator: Zaki Humphries MD GFR, Amer >60 Normal >60 [facility] Comment on above: Performed By: #### C DP, BMP, LIPR, MG, GLYHGB #### [address] [address] Coordinate Measuring Machine Operator: Zaki Humphries MD GFR,non Amer >60 Normal >60 [facility] Comment on above: Performed By: #### C DP, BMP, LIPR, MG, GLYHGB #### [address] [address] Coordinate Measuring Machine Operator: Zaki Humphries MD Glucose [Mass/Vol] 217 mg/dL High 70-99 [facility] Comment on above: Performed By: #### C DP, BMP, LIPR, MG, GLYHGB #### [address] [address] Coordinate Measuring Machine Operator: Zaki Humphries MD Potassium [Moles/Vol] 3.9 mmol/L Normal 3.7-5.3 [facility] Comment on above: Performed By: #### C DP, BMP, LIPR, MG, GLYHGB #### [address] [address] Coordinate Measuring Machine Operator: Zaki Humphries MD Sodium [Moles/Vol] 137 mmol/L Normal 135-144 [facility] Comment on above: Performed By: #### C DP, BMP, LIPR, MG, GLYHGB #### [address] [address] Coordinate Measuring Machine Operator: Zaki Humphries MD Urea nitrogen [Mass/Vol] 20 mg/dL Normal 6-20 [facility] Comment on above: Performed By: #### C DP, BMP, LIPR, MG, GLYHGB #### [address] [address] Coordinate Measuring Machine Operator: Zaki Humphries MD BUN/CRE Ratio NOT REPORTED Normal 9-20 [facility] Comment on above: Performed By: #### C DP, BMP, LIPR, MG, GLYHGB #### [facility] [address] [place] [id number] Coordinate Measuring Machine Operator: Zaki Humphries MD Staging: NOT REPORTED Normal [facility] Comment on above: Performed By: #### C DP, BMP, LIPR, MG, GLYHGB #### [facility] [address] [place], [place] [address] Coordinate Measuring Machine Operator: Zaki Humphries MD Basic metabolic panelon 05-14 Anion gap [Moles/Vol] 12 mmol/L 9 - 17 mmol/L [place] Bun/Cre Ratio NOT REPORTED [place], [place] Calcium [Mass/Vol] 9.0 mg/dL 8.6 - 10. 4 mg/dL [place] Chloride [Moles/Vol] 102 mmol/L 98 - 10 7 mmol/L [place] CO2 [Moles/Vol] 23 mmol/L 20 - 31 mmol/L [place] Creatinine [Mass/Vol] 0.59 mg/dL 0.5 - 0.9 mg/dL [place] GFR >60 >60 mL/min [place] GFR Non- >60 >60 mL/min [place] GFR/1.73 sq M predicted among non-blacks MDRD (S/P/Bld) [Vol rate/Area] [place] Comment on above: Average GFR for 50-5 9 years old: 93 mL/min/1.73sq m Chronic Kidney Disease: <60 mL/min/1.73sq m Kidney failure: <15 mL/min/1.73sq m eGFR calculated using average adult body mass. Additional eGFR calculator available at: http://www.Certus.com/multiple_crcl_2012.htm GFR/1.73 sq M predicted among non-blacks MDRD (S/P/Bld) [Vol rate/Area] NOT REPORTED [place] Glucose [Mass/Vol] 217 mg/dL High 70 - 99 mg/dL [place] Potassium [Moles/Vol] 3.9 mmol/L 3.7 - 5.3 mmol/L [place] Sodium [Moles/Vol] 137 mmol/L 135 - 144 mmol/L [place] Urea nitrogen [Mass/Vol] 20 mg/dL 6 - 20 mg/dL [place] CBCon 05-27-2019 Erythrocyte distribution width (RBC) [Ratio] 13.4 % Normal 11.8-14.4 [facility] Comment on above: Performed By: #### C DP, BMP, LIPR, MG, GLYHGB #### [facility] [address] [place] [address] Coordinate Measuring Machine Operator: Zaki Humphries MD Hematocrit (Bld) [Volume fraction] 40.2 % Normal 36.3-47.1 [facility] Comment on above: Performed By: #### C DP, BMP, LIPR, MG, GLYHGB #### [facility] [address] [place] [address] Coordinate Measuring Machine Operator: Zaki Humphries MD Hemoglobin (Bld) [Mass/Vol] 13.3 g/dL Normal 11.9-15.1 [facility] Comment on above: Performed By: #### C DP, BMP, LIPR, MG, GLYHGB #### [facility] [address] [place] [address] Coordinate Measuring Machine Operator: Zaki Humphries MD MCH (RBC) [Entitic mass] 30.0 pg Normal 25.2-33.5 [facility] Comment on above: Performed By: #### C DP, BMP, LIPR, MG, GLYHGB #### [facility] [address] [place] [address] Coordinate Measuring Machine Operator: Zaki Humphries MD MCHC (RBC) [Mass/Vol] 33.1 g/dL Normal 28.4-34.8 [facility] Comment on above: Performed By: #### C DP, BMP, LIPR, MG, GLYHGB #### [facility] [address] [place] [address] Coordinate Measuring Machine Operator: Zaki Humphries MD MCV (RBC) [Entitic vol] 90.7 fL Normal 82.6-102.9 [facility] Comment on above: Performed By: #### C DP, BMP, LIPR, MG, GLYHGB #### [address] [address] Coordinate Measuring Machine Operator: Zaki Humphries MD NRBC Automated 0.0 per 100 WBC Normal 0.0 [facility] Comment on above: Performed By: #### C DP, BMP, LIPR, MG, GLYHGB #### [address] [address] Coordinate Measuring Machine Operator: Zaki Humphries MD Platelet mean volume (Bld) [Entitic vol] 10.5 fL Normal 8.1-13.5 [facility] Comment on above: Performed By: #### C DP, BMP, LIPR, MG, GLYHGB #### [address] [address] Coordinate Measuring Machine Operator: Zaki Humphries MD Platelets (Bld) [#/Vol] 254 10*3/uL Normal 138-453 [facility] Comment on above: Performed By: #### C DP, BMP, LIPR, MG, GLYHGB #### [address] [address] Coordinate Measuring Machine Operator: Zaki Humphries MD RBC (Bld) [#/Vol] 4.43 10*6/uL Normal 3.95-5.11 [facility] Comment on above: Performed By: #### C DP, BMP, LIPR, MG, GLYHGB #### [address] [address] Coordinate Measuring Machine Operator: Zaki Humphries MD WBC (Bld) [#/Vol] 14.2 10*3/uL High 3.5-11.3 [facility] Comment on above: Performed By: #### C DP, BMP, LIPR, MG, GLYHGB #### [facility] [address] [place] [address] Coordinate Measuring Machine Operator: Zaki Humphries MD Erythrocyte distribution width (RBC) [Ratio] 13.4 % 11.8 - 14.4 % [place] Hematocrit (Bld) [Volume fraction] 40.2 % 36.3 - 47.1 % [place] Hemoglobin (Bld) [Mass/Vol] 13.3 g/dL 11.9 - 15.1 g/dL [place] Interpretation and review of laboratory results Abnormal [place] MCH (RBC) [Entitic mass] 30.0 pg 25.2 - 33.5 pg [place] MCHC (RBC) [Mass/Vol] 33.1 g/dL 28.4 - 34.8 g/dL [place] MCV (RBC) [Entitic vol] 90.7 fL 82.6 - 102.9 fL [place] Platelet mean volume (Bld) [Entitic vol] 10.5 fL 8.1 - 13.5 fL [place] Platelets (Bld) [#/Vol] 254 10*3/uL [place] RBC (Bld) [#/Vol] 4.43 10*6/uL 3.95 - 5.1 1 m/uL [place] WBC (Bld) [#/Vol] 0.0 10*3/uL 0.0 per 10 0 WBC [place] WBC (Bld) [#/Vol] 14.2 10*3/uL High [place] CSF DIFFERENTIALon 0 Bands, CSF % [place] Baso, CSF % [place] Blasts, CSF % [place] Eosinophils, CSF % [place] Fluid Diff Comment [place] Lymphs, CSF 92 % [place] Comment on above: The reference range and other method performance specifications have not been established for this body fluid. The test result must be integrated into the clinical context for interpretation. Metamyelocyte, CSF % [facility], [place]/Macrophage, CSF % [facility], [place] Myelocyte, CSF % [facility], [place] Neutrophils, CSF 1 % [place] Comment on above: The reference range and other method performance specifications have not been established for this body fluid. The test result must be integrated into the clinical context for interpretation. Other Cells, Fluid MONOCYTES % [place] Comment on above: The reference range and other method performance specifications have not been established for this body fluid. The test result must be integrated into the clinical context for interpretation. CSF Differentialon 0 Other Cells MONOCYTES Normal [facility] Comment on above: Result Comment: The reference range and other method performance specifications have not been established for this body fluid. The test result must be integrated into the clinical context for interpretation. Performed By: #### C DP, BMP, LIPR, MG, GLYHGB #### [facility] [address] [place] [address] [id number] Coordinate Measuring Machine Operator: Zaki Humphries MD HIV REFLEXon 05-27-2019 HIV Ag/Ab NONREACTIVE NONREACTIVE [place] Comment on above: No laboratory eviden ce of HIV infection. If acute HIV infection is suspected, consider testing for HIV-1 RNA. HIV Reflexon 05-27-2019 HIV Ag/Ab NONREACTIVE Normal NR [facility] Comment on above: Result Comment: No l aboratory evidence of HIV infection. If acute HIV infection is suspected, consider testing for HIV-1 RNA. Performed By: #### C DP, BMP, LIPR, MG, GLYHGB #### [facility] [address] [place] [id number] Coordinate Measuring Machine Operator: Zaki Humphries MD Magnesiumon 05-27-2019 Magnesium [Mass/Vol] 2.7 mg/dL High 1.6-2.6 [facility] Comment on above: Performed By: #### C DP, BMP, LIPR, MG, GLYHGB #### [facility] [address] [place] [address] Coordinate Measuring Machine Operator: Zaki Humphries MD Magnesium [Mass/Vol] 2.7 mg/dL High 1.6 - 2 .6 mg/dL [place] Otheron 05-27-2019 Interpretation and review of laboratory results Abnormal [place] POC Glucose Fingerstickon Glucose [Mass/Vol] 230 mg/dL High 65 - 105 mg/dL [place], [place] Interpretation and review of laboratory results Abnormal [place] Glucose [Mass/Vol] 225 mg/dL High 65 - 105 mg/dL [place] Interpretation and review of laboratory results Abnormal [place] Glucose [Mass/Vol] 216 mg/dL High 65 - 105 mg/dL [place] Interpretation and review of laboratory results Abnormal [place] PROTEIN S FUNCTIONALon 05-26 Interpretation and review of laboratory results Abnormal [place] Protein [Mass/Vol] g/dL High 59 - 130 % [place] Comment on above: Patients on oral [...] 020 Protein [Mass/Vol] 121 % Normal >80 [facility] Comment on above: Result Comment: Patients [...] C DP, BMP, LIPR, MG, GLYHGB #### [facility] [address] [place] [address] Coordinate Measuring Machine Operator: Zaki Humphries MD Protein C Functionalon 05-26 Protein [Mass/Vol] 121 % >80 [place] Comment on above: Patients on oral [...] Activityon 020 Protein [Mass/Vol] g/dL High 59-130 [facility] Comment on above: Result Comment: Patients [...] C DP, BMP, LIPR, MG, GLYHGB #### [facility] [place] [address] Coordinate Measuring Machine Operator: Zaki Humphries MD ANTI-NEUTROPHILIC CYTOPLASMI C ANTIBODYon 05-26-2019 ANCA Myeloperoxidase 8 AU/mL <100 [place] Comment on above: Reference Ranges (MPO and PR3): <100 AU/mL Negative 100-120 AU/mL Equivocal >120 AU/mL Positive Protein [Mass/Vol] 10 AU/mL <100 [place] Comment on above: Reference Ranges (MPO and PR3): <100 AU/mL Negative 100-120 AU/mL Equivocal >120 AU/mL Positive ANTI-PHOSPHOLIPID ABo 05-25 Anticardiolipin IgA 1.1 <12 [facility] [place] Comment on above: Reference Range: 12 - 15 Equivocal >15 Positive Anticardiolipin IgG 2.5 <20 GPU [place] Comment on above: Reference Range: 20.0 - 29.9 Low Positive 30.0 - 79.9 Moderate Positive >79.9 High Positive Cardiolipin Ab IgM 1.7 <20 MPU [place] Comment on above: Reference Range: 20.0 - 29.9 Low Positive 30.0 - 79.9 Moderate Positive >79.9 High Positive Anti-Phospholipid Abon 05-25 Antiphospholipid IgA 1.1 APU Normal <12 [facility] Comment on above: Result Comment: Reference Range: 12 - 15 Equivocal >15 Positive Performed By: #### D AU #### [address] [address] Coordinate Measuring Machine Operator: Zaki Humphries MD Antiphospholipid IgG 2.5 GPU Normal <20 [facility] Comment on above: Result Comment: Reference Range: 20.0 - 29.9 Low Positive 30.0 - 79.9 Moderate Positive >79.9 High Positive Performed By: #### D AU #### [address] [address] Coordinate Measuring Machine Operator: Zaki Humphries MD Antiphospholipid IgM 1.7 MPU Normal <20 [facility] Comment on above: Result Comment: Reference Range: 20.0 - 29.9 Low Positive 30.0 - 79.9 Moderate Positive >79.9 High Positive Performed By: #### D AU #### [place] [address] Coordinate Measuring Machine Operator: Zaki Humphries MD Basic Metabolic Profon 05-25 (cont.) Normal [facility] Comment on above: Result Comment: Aver age GFR for 50-59 years old: 93 mL/min/1.73sq m Chronic Kidney Disease: <60 mL/min/1.73sq m Kidney failure: <15 mL/min/1.73sq m eGFR calculated using average adult body mass. Additional eGFR calculator available at: http://www.Certus.com/multiple_crcl_2012.htm Performed By: #### C DP, BMP, LIPR, MG, GLYHGB #### [address] [address] Coordinate Measuring Machine Operator: Zaki Humphries MD Anion gap [Moles/Vol] 12 mmol/L Normal -17 [facility] Comment on above: Performed By: #### C DP, BMP, LIPR, MG, GLYHGB #### [address] [address] Coordinate Measuring Machine Operator: Zaki Humphries MD Calcium [Mass/Vol] 9.2 mg/dL Normal 8.6-10.4 [facility] Comment on above: Performed By: #### C DP, BMP, LIPR, MG, GLYHGB #### [address] [address] Coordinate Measuring Machine Operator: Zaki Humphries MD Chloride [Moles/Vol] 103 mmol/L Normal 98-107 [facility] Comment on above: Performed By: #### C DP, BMP, LIPR, MG, GLYHGB #### [address] [address] Coordinate Measuring Machine Operator: Zaki Humphries MD CO2 [Moles/Vol] 21 mmol/L Normal 20-31 [facility] Comment on above: Performed By: #### C DP, BMP, LIPR, MG, GLYHGB #### [address] [address] Coordinate Measuring Machine Operator: Zaki Humphries MD Creatinine [Mass/Vol] 0.57 mg/dL Normal 0.50-0.90 [facility] Comment on above: Performed By: #### C DP, BMP, LIPR, MG, GLYHGB #### [address] [address] Coordinate Measuring Machine Operator: Zaki Humphries MD GFR, Amer >60 Normal >60 [facility] Comment on above: Performed By: #### C DP, BMP, LIPR, MG, GLYHGB #### [address] [address] Coordinate Measuring Machine Operator: Zaki Humphries MD GFR,non Amer >60 Normal >60 [facility] Comment on above: Performed By: #### C DP, BMP, LIPR, MG, GLYHGB #### [address] [address] Coordinate Measuring Machine Operator: Zaki Humphries MD Glucose [Mass/Vol] 203 mg/dL High 70-99 [facility] Comment on above: Performed By: #### C DP, BMP, LIPR, MG, GLYHGB #### [facility] [address] [place] [address] Coordinate Measuring Machine Operator: Zaki Humphreis MD Potassium [Moles/Vol] 3.9 mmol/L Normal 3.7-5.3 [facility] Comment on above: Performed By: #### C DP, BMP, LIPR, MG, GLYHGB #### [facility] [address] [place] [address] Coordinate Measuring Machine Operator: Zaki Humphries MD Sodium [Moles/Vol] 136 mmol/L Normal 135-144 [facility] Comment on above: Performed By: #### C DP, BMP, LIPR, MG, GLYHGB #### [facility] [address] [place] [address] Coordinate Measuring Machine Operator: Zaki Humphries MD Urea nitrogen [Mass/Vol] 17 mg/dL Normal 6-20 [facility] Comment on above: Performed By: #### C DP, BMP, LIPR, MG, GLYHGB #### [facility] [address] [place] [address] Coordinate Measuring Machine Operator: Zaki Humphries MD BUN/CRE Ratio NOT REPORTED Normal -20 [facility] Comment on above: Performed By: #### C DP, BMP, LIPR, MG, GLYHGB #### [facility] [address] [place] [address] Coordinate Measuring Machine Operator: Zaki Humphries MD Staging: NOT REPORTED Normal [facility] Comment on above: Performed By: #### C DP, BMP, LIPR, MG, GLYHGB #### [facility] [address] [place] [address] Coordinate Measuring Machine Operator: Zaki Humphries MD Basic metabolic panelon 05-14 Anion gap [Moles/Vol] 12 mmol/L 9 - 17 mmol/L [place] Bun/Cre Ratio NOT REPORTED [place] Calcium [Mass/Vol] 9.2 mg/dL 8.6 - 10. 4 mg/dL [place] Chloride [Moles/Vol] 103 mmol/L 98 - 10 7 mmol/L [place] CO2 [Moles/Vol] 21 mmol/L 20 - 31 mmol/L [place] Creatinine [Mass/Vol] 0.57 mg/dL 0.5 - 0.9 mg/dL [place] GFR >60 >60 mL/min [place] GFR Non- >60 >60 mL/min [place] GFR/1.73 sq M predicted among non-blacks MDRD (S/P/Bld) [Vol rate/Area] NOT REPORTED [place] GFR/1.73 sq M predicted among non-blacks MDRD (S/P/Bld) [Vol rate/Area] [place], [place] Comment on above: Average GFR for 50-5 9 years old: 93 mL/min/1.73sq m Chronic Kidney Disease: <60 mL/min/1.73sq m Kidney failure: <15 mL/min/1.73sq m eGFR calculated using average adult body mass. Additional eGFR calculator available at: http://www.Certus.Infinia/multiple_crcl_2012.htm Glucose [Mass/Vol] 203 mg/dL High 70 - 99 mg/dL [place], [place] Interpretation and review of laboratory results Abnormal [place] Potassium [Moles/Vol] 3.9 mmol/L 3.7 - 5.3 mmol/L [place] Sodium [Moles/Vol] 136 mmol/L 135 - 144 mmol/L [place] Urea nitrogen [Mass/Vol] 17 mg/dL 6 - 20 mg/dL [place] CBCon 05-26-2019 Erythrocyte distribution width (RBC) [Ratio] 13.7 % Normal 11.8-14.4 [facility] Comment on above: Performed By: #### C DP, BMP, LIPR, MG, GLYHGB #### [address] [address] Coordinate Measuring Machine Operator: Zaki Humphries MD Hematocrit (Bld) [Volume fraction] 39.0 % Normal 36.3-47.1 [facility] Comment on above: Performed By: #### C DP, BMP, LIPR, MG, GLYHGB #### [facility] [address] [place] [address] Coordinate Measuring Machine Operator: Zaki Humphries MD Hemoglobin (Bld) [Mass/Vol] 13.0 g/dL Normal 11.9-15.1 [facility] Comment on above: Performed By: #### C DP, BMP, LIPR, MG, GLYHGB #### [place] [address] Coordinate Measuring Machine Operator: Zaki Humphries MD MCH (RBC) [Entitic mass] 30.5 pg Normal 25.2-33.5 [facility] Comment on above: Performed By: #### C DP, BMP, LIPR, MG, GLYHGB #### [address] [address] Coordinate Measuring Machine Operator: Zaki Humphries MD MCHC (RBC) [Mass/Vol] 33.3 g/dL Normal 28.4-34.8 [facility] Comment on above: Performed By: #### C DP, BMP, LIPR, MG, GLYHGB #### [address] [address] Coordinate Measuring Machine Operator: Zaki Humphries MD MCV (RBC) [Entitic vol] 91.5 fL Normal 82.6-102.9 [facility] Comment on above: Performed By: #### C DP, BMP, LIPR, MG, GLYHGB #### [address] [address] Coordinate Measuring Machine Operator: Zaki Humphries MD NRBC Automated 0.0 per 100 WBC Normal 0.0 [facility] Comment on above: Performed By: #### C DP, BMP, LIPR, MG, GLYHGB #### [address] [address] Coordinate Measuring Machine Operator: Zaki Humphries MD Platelet mean volume (Bld) [Entitic vol] 9.9 fL Normal 8.1-13.5 [facility] Comment on above: Performed By: #### C DP, BMP, LIPR, MG, GLYHGB #### [address] [address] Coordinate Measuring Machine Operator: Zaki Humphries MD Platelets (Bld) [#/Vol] 234 10*3/uL Normal 138-453 [facility] Comment on above: Performed By: #### C DP, BMP, LIPR, MG, GLYHGB #### [address] [address] Coordinate Measuring Machine Operator: Zaki Humphries MD RBC (Bld) [#/Vol] 4.26 10*6/uL Normal 3.95-5.11 [facility] Comment on above: Performed By: #### C DP, BMP, LIPR, MG, GLYHGB #### [address] [address] Coordinate Measuring Machine Operator: Zaki Humphries MD WBC (Bld) [#/Vol] 18.3 10*3/uL High 3.5-11.3 [facility] Comment on above: Performed By: #### C DP, BMP, LIPR, MG, GLYHGB #### [address] [address] Coordinate Measuring Machine Operator: Zaki Humphries MD Erythrocyte distribution width (RBC) [Ratio] 13.7 % 11.8 - 14.4 % [place] Hematocrit (Bld) [Volume fraction] 39.0 % 36.3 - 47.1 % [place] Hemoglobin (Bld) [Mass/Vol] 13.0 g/dL 11.9 - 15.1 g/dL [place] Interpretation and review of laboratory results Abnormal [place] MCH (RBC) [Entitic mass] 30.5 pg 25.2 - 33.5 pg [place] MCHC (RBC) [Mass/Vol] 33.3 g/dL 28.4 - 34.8 g/dL [place] MCV (RBC) [Entitic vol] 91.5 fL 82.6 - 102.9 fL [place] Platelet mean volume (Bld) [Entitic vol] 9.9 fL 8.1 - 13.5 fL [place] Platelets (Bld) [#/Vol] 234 10*3/uL [place] RBC (Bld) [#/Vol] 4.26 10*6/uL 3.95 - 5.1 1 m/uL [place] WBC (Bld) [#/Vol] 18.3 10*3/uL [place] WBC (Bld) [#/Vol] 0.0 10*3/uL 0.0 per 10 0 WBC [place] GLOMERULAR BASEMENT MEMBRANE (GBM) ANTIBODY IGGon 05-26-2019 GBM Ab, IgG 9 AU/mL <100 [place] Comment on above: GBM Reference Range: [...] [Mass/Vol] 2.6 mg/dL Normal 1.6-2.6 [facility] Comment on above: Performed By: #### C DP, BMP, LIPR, MG, GLYHGB #### [facility] [address] [place] [address] [id number] Coordinate Measuring Machine Operator: Zaki Humphries MD Magnesium [Mass/Vol] 2.6 mg/dL 1.6 - 2 .6 mg/dL [place] Neutrophil Cytopl Abon 05-25 MPO-ANCA 8 AU/mL Normal <100 [facility] Comment on above: Result Comment: Reference Ranges (MPO and PR3): <100 AU/mL Negative 100-120 AU/mL Equivocal >120 AU/mL Positive Performed By: #### D AU #### [facility] [address] [place] [address] [phone] Coordinate Measuring Machine Operator: Zaki Humphries MD PR3-ANCA 10 AU/mL Normal <100 [facility] Comment on above: Result Comment: Reference Ranges (MPO and PR3): <100 AU/mL Negative 100-120 AU/mL Equivocal >120 AU/mL Positive Performed By: #### D AU #### [address] [phone] Coordinate Measuring Machine Operator: Zaki Humphries MD POC Glucose Fingerstickon Glucose [Mass/Vol] 278 mg/dL High 65 - 105 mg/dL [place], [place] Interpretation and review of laboratory results Abnormal [place] Glucose [Mass/Vol] 227 mg/dL High 65 - 105 mg/dL [place], [place] Interpretation and review of laboratory results Abnormal [place] Glucose [Mass/Vol] 179 mg/dL High 65 - 105 mg/dL [place], [place] Interpretation and review of laboratory results Abnormal [place] Glucose [Mass/Vol] 186 mg/dL High 65 - 105 mg/dL [place], [place] Interpretation and review of laboratory results Abnormal [place] AROLDO SCREEN WITH REFLEXon Nuclear Ab IF (S) [Titer] Negative NEGATIVE [place] Comment on above: This test was run on the [employer] AROLDO test system. The system provides ten test results (HEp-2NA, dsDNA, SSA, SSB, Sm, UPHOLSTERY REPAIRER, Scl-70, Sabine-1, Centromere and Histone analytes) from a single patient sample. A negative AROLDO screen indicates that the specimen was negative for all ten markers. AROLDO Screenon 05-25-2019 AROLDO Screen Negative Normal NEG [facility] Comment on above: Result Comment: This test was run on the [employer] AROLDO test system. The system provides ten test results (HEp-2NA, dsDNA, SSA, SSB, Sm, UPHOLSTERY REPAIRER, Scl-70, Sabine-1, Centromere and Histone analytes) from a single patient sample. A negative AROLDO screen indicates that the specimen was negative for all ten markers. Performed By: #### D AU #### [place] [id number] Coordinate Measuring Machine Operator: Zaki Humphries MD Basic Metabolic Profon 05-24 (cont.) Normal [facility] Comment on above: Result Comment: Aver age GFR for 50-59 years old: 93 mL/min/1.73sq m Chronic Kidney Disease: <60 mL/min/1.73sq m Kidney failure: <15 mL/min/1.73sq m eGFR calculated using average adult body mass. Additional eGFR calculator available at: http://www.DiscountDoc/multiple_crcl_2012.htm Performed By: #### C DP, BMP, LIPR, MG, GLYHGB #### [facility] [address] [place], [place] [phone] Coordinate Measuring Machine Operator: Zaki Humphries MD Anion gap [Moles/Vol] 12 mmol/L Normal 9-17 [facility] Comment on above: Performed By: #### C DP, BMP, LIPR, MG, GLYHGB #### [facility] [address] [place] [address] Coordinate Measuring Machine Operator: Zaki Humphries MD Calcium [Mass/Vol] 8.9 mg/dL Normal 8.6-10.4 [facility] Comment on above: Performed By: #### C DP, BMP, LIPR, MG, GLYHGB #### [facility] [address] Coordinate Measuring Machine Operator: Zaki Humphries MD Chloride [Moles/Vol] 109 mmol/L High 98-107 [facility] Comment on above: Performed By: #### C DP, BMP, LIPR, MG, GLYHGB #### [address] [address] Coordinate Measuring Machine Operator: Zaki Humphries MD CO2 [Moles/Vol] 17 mmol/L Low 20-31 [facility] Comment on above: Performed By: #### C DP, BMP, LIPR, MG, GLYHGB #### [address] [address] Coordinate Measuring Machine Operator: Zaki Humphries MD Creatinine [Mass/Vol] 0.54 mg/dL Normal 0.50-0.90 [facility] Comment on above: Performed By: #### C DP, BMP, LIPR, MG, GLYHGB #### [address] [address] Coordinate Measuring Machine Operator: Zaki Humphries MD GFR, Amer >60 Normal >60 [facility] Comment on above: Performed By: #### C DP, BMP, LIPR, MG, GLYHGB #### [address] [address] Coordinate Measuring Machine Operator: Zaki Humphries MD GFR,non Amer >60 Normal >60 [facility] Comment on above: Performed By: #### C DP, BMP, LIPR, MG, GLYHGB #### [address] [address] Coordinate Measuring Machine Operator: Zaki Humphries MD Glucose [Mass/Vol] 183 mg/dL High 70-99 [facility] Comment on above: Performed By: #### C DP, BMP, LIPR, MG, GLYHGB #### [facility] [address] [place] [address] Coordinate Measuring Machine Operator: Zaki Humphries MD Potassium [Moles/Vol] 4.3 mmol/L Normal 3.7-5.3 [facility] Comment on above: Result Comment: SPEC IMEN SLIGHTLY HEMOLYZED, RESULTS MAY BE ADVERSELY AFFECTED. Performed By: #### C DP, BMP, LIPR, MG, GLYHGB #### [facility] [address] [place] [address] Coordinate Measuring Machine Operator: Zaki Humphries MD Sodium [Moles/Vol] 138 mmol/L Normal 135-144 [facility] Comment on above: Performed By: #### C DP, BMP, LIPR, MG, GLYHGB #### [facility] [address] [place] [address] Coordinate Measuring Machine Operator: Zaki Humphries MD Urea nitrogen [Mass/Vol] 17 mg/dL Normal -20 [facility] Comment on above: Performed By: #### C DP, BMP, LIPR, MG, GLYHGB #### [facility] [address] [place] [address] Coordinate Measuring Machine Operator: Zaki Humphries MD BUN/CRE Ratio NOT REPORTED Normal -20 [facility] Comment on above: Performed By: #### C DP, BMP, LIPR, MG, GLYHGB #### [facility] [address] [place] [address] Coordinate Measuring Machine Operator: Zaki Humphries MD Staging: NOT REPORTED Normal [facility] Comment on above: Performed By: #### C DP, BMP, LIPR, MG, GLYHGB #### [facility] [address] [place] [address] Coordinate Measuring Machine Operator: Zaki Humphries MD Basic metabolic panelon 05-14 Anion gap [Moles/Vol] 12 mmol/L 9 - 17 mmol/L [place] Bun/Cre Ratio NOT REPORTED [place] Calcium [Mass/Vol] 8.9 mg/dL 8.6 - 10. 4 mg/dL [place] Chloride [Moles/Vol] 109 mmol/L High 98 - 10 7 mmol/L [place] CO2 [Moles/Vol] 17 mmol/L Low 20 - 31 mmol/L [place] Creatinine [Mass/Vol] 0.54 mg/dL 0.5 - 0.9 mg/dL [place] GFR >60 >60 mL/min [place] GFR Non- >60 >60 mL/min [place] GFR/1.73 sq M predicted among non-blacks MDRD (S/P/Bld) [Vol rate/Area] [place] Comment on above: Average GFR for 50-5 9 years old: 93 mL/min/1.73sq m Chronic Kidney Disease: <60 mL/min/1.73sq m Kidney failure: <15 mL/min/1.73sq m eGFR calculated using average adult body mass. Additional eGFR calculator available at: http://www.DiscountDoc/multiple_crcl_2012.htm GFR/1.73 sq M predicted among non-blacks MDRD (S/P/Bld) [Vol rate/Area] NOT REPORTED [place] Glucose [Mass/Vol] 183 mg/dL High 70 - 99 mg/dL [place], [place] Interpretation and review of laboratory results Abnormal [place] Potassium [Moles/Vol] 4.3 mmol/L 3.7 - 5.3 mmol/L [place] Comment on above: SPECIMEN SLIGHTLY HE MOLYZED, RESULTS MAY BE ADVERSELY AFFECTED. Sodium [Moles/Vol] 138 mmol/L 135 - 144 mmol/L [place] Urea nitrogen [Mass/Vol] 17 mg/dL 6 - 20 mg/dL [place] CBCon 05-25-2019 Erythrocyte distribution width (RBC) [Ratio] 13.2 % Normal 11.8-14.4 [facility] Comment on above: Performed By: #### C DP, BMP, LIPR, MG, GLYHGB #### [address] [address] Coordinate Measuring Machine Operator: Zaki Humphries MD Hematocrit (Bld) [Volume fraction] 42.5 % Normal 36.3-47.1 [facility] Comment on above: Performed By: #### C DP, BMP, LIPR, MG, GLYHGB #### [address] [phone] Coordinate Measuring Machine Operator: Zaki Humphries MD Hemoglobin (Bld) [Mass/Vol] 13.7 g/dL Normal 11.9-15.1 [facility] Comment on above: Performed By: #### C DP, BMP, LIPR, MG, GLYHGB #### [address] [address] Coordinate Measuring Machine Operator: Zaki Humphries MD MCH (RBC) [Entitic mass] 29.8 pg Normal 25.2-33.5 [facility] Comment on above: Performed By: #### C DP, BMP, LIPR, MG, GLYHGB #### [address] [address] Coordinate Measuring Machine Operator: Zaki Humphries MD MCHC (RBC) [Mass/Vol] 32.2 g/dL Normal 28.4-34.8 [facility] Comment on above: Performed By: #### C DP, BMP, LIPR, MG, GLYHGB #### [place] [address] Coordinate Measuring Machine Operator: Zaki Humphries MD MCV (RBC) [Entitic vol] 92.4 fL Normal 82.6-102.9 [facility] Comment on above: Performed By: #### C DP, BMP, LIPR, MG, GLYHGB #### [address] [address] Coordinate Measuring Machine Operator: Zaki Humphries MD NRBC Automated 0.0 per 100 WBC Normal 0.0 [facility] Comment on above: Performed By: #### C DP, BMP, LIPR, MG, GLYHGB #### [facility] [address] [place] [address] Coordinate Measuring Machine Operator: Zaki Humphries MD Platelet mean volume (Bld) [Entitic vol] 10.1 fL Normal 8.1-13.5 [facility] Comment on above: Performed By: #### C DP, BMP, LIPR, MG, GLYHGB #### [facility] [address] [place] [address] Coordinate Measuring Machine Operator: Zaki Humphries MD Platelets (Bld) [#/Vol] 288 10*3/uL Normal 138-453 [facility] Comment on above: Performed By: #### C DP, BMP, LIPR, MG, GLYHGB #### [address] [address] Coordinate Measuring Machine Operator: Zaki Humphries MD RBC (Bld) [#/Vol] 4.60 10*6/uL Normal 3.95-5.11 [facility] Comment on above: Performed By: #### C DP, BMP, LIPR, MG, GLYHGB #### [facility] [address] [place] [address] Coordinate Measuring Machine Operator: Zaki Humphries MD WBC (Bld) [#/Vol] 14.5 10*3/uL High 3.5-11.3 [facility] Comment on above: Performed By: #### C DP, BMP, LIPR, MG, GLYHGB #### [facility] [address] [place] [address] Coordinate Measuring Machine Operator: Zaki Humphries MD Erythrocyte distribution width (RBC) [Ratio] 13.2 % 11.8 - 14.4 % [place] Hematocrit (Bld) [Volume fraction] 42.5 % 36.3 - 47.1 % [place] Hemoglobin (Bld) [Mass/Vol] 13.7 g/dL 11.9 - 15.1 g/dL [place] Interpretation and review of laboratory results Abnormal [place] MCH (RBC) [Entitic mass] 29.8 pg 25.2 - 33.5 pg [place] MCHC (RBC) [Mass/Vol] 32.2 g/dL 28.4 - 34.8 g/dL [place] MCV (RBC) [Entitic vol] 92.4 fL 82.6 - 102.9 fL [place] Platelet mean volume (Bld) [Entitic vol] 10.1 fL 8.1 - 13.5 fL [place] Platelets (Bld) [#/Vol] 288 10*3/uL [place] RBC (Bld) [#/Vol] 4.60 10*6/uL 3.95 - 5.1 1 m/uL [place] WBC (Bld) [#/Vol] 0.0 10*3/uL 0.0 per 10 0 WBC [place] WBC (Bld) [#/Vol] 14.5 10*3/uL [place] CSF Cell Counton 05-25-2019 Appearance (U) SLIGHTLY BLOODY Normal [facility] Comment on above: Performed By: #### C DP, BMP, LIPR, MG, GLYHGB #### [facility] [address] [place] [address] Coordinate Measuring Machine Operator: Zaki Humphries MD RBC (Bld) [#/Vol] 61597 /mm3 High 0 [facility] Comment on above: Performed By: #### C DP, BMP, LIPR, MG, GLYHGB #### [facility] [address] [place] [address] Coordinate Measuring Machine Operator: Zaki Humphries MD Tube Number 3 Normal [facility] Comment on above: Performed By: #### C DP, BMP, LIPR, MG, GLYHGB #### [facility] [address] [place] [address] [phone] Coordinate Measuring Machine Operator: Zaki Humphries MD WBC (Bld) [#/Vol] 92 /mm3 High <5 [facility] Comment on above: Performed By: #### C DP, BMP, LIPR, MG, GLYHGB #### [facility] [address] [place] [address] Coordinate Measuring Machine Operator: Zaki Humphries MD Xanthochromia PRESENT Normal [facility] Comment on above: Performed By: #### C DP, BMP, LIPR, MG, GLYHGB #### [facility] [address] [place] [address] Coordinate Measuring Machine Operator: Zaki Humphries MD Color (U) NOT REPORTED Normal [facility] Comment on above: Performed By: #### C DP, BMP, LIPR, MG, GLYHGB #### [facility] [address] [place] [address] Coordinate Measuring Machine Operator: Zaki Humphries MD Volume 5 Normal [facility] Comment on above: Performed By: #### C DP, BMP, LIPR, MG, GLYHGB #### [facility] [address] [place] [address] Coordinate Measuring Machine Operator: Zaki Humphries MD CSF Cell Count with Travis clark 05-25-2019 Appearance, CSF SLIGHTLY BLOODY [facility] [place], [place] Interpretation and review of laboratory results Abnormal [facility] [place] RBC, CSF [address] /mm3 High 0 [facility] [place] Supernatant Color, CSF NOT REPORTED [facility] [place] Tube Number, [facility] [place] [place] Volume, CSF 5 [facility] [place] WBC (Bld) [#/Vol] 92 /mm3 High <5 [facility] [place] [facility]chromia [facility] [place] [place] CSF Differentialon 0 Lymphocytes/100 WBC (Bld) 92 % Normal [facility] Comment on above: Result Comment: The reference range and other method performance specifications have not been established for this body fluid. The test result must be integrated into the clinical context for interpretation. Performed By: #### C DP, BMP, LIPR, MG, GLYHGB #### [facility] [address] [place] [address] Coordinate Measuring Machine Operator: Zaki Humphries MD Neutrophils/100 WBC (Bld) 1 % Normal [facility] Comment on above: Result Comment: The reference range and other method performance specifications have not been established for this body fluid. The test result must be integrated into the clinical context for interpretation. Performed By: #### C DP, BMP, LIPR, MG, GLYHGB #### [facility] [address] [place] [address] Coordinate Measuring Machine Operator: Zaki Humphries MD Bands NOT REPORTED Normal [facility] Comment on above: Performed By: #### C DP, BMP, LIPR, MG, GLYHGB #### [address] [address] Coordinate Measuring Machine Operator: Zaki Humphries MD Basophils/100 WBC (Bld) NOT REPORTED Normal [facility] Comment on above: Performed By: #### C DP, BMP, LIPR, MG, GLYHGB #### [facility] [address] [place] [address] Coordinate Measuring Machine Operator: Zaki Humphries MD Blast NOT REPORTED Normal [facility] Comment on above: Performed By: #### C DP, BMP, LIPR, MG, GLYHGB #### [facility] [address] [place] [address] Coordinate Measuring Machine Operator: Zaki Humphries MD Comment NOT REPORTED Normal [facility] Comment on above: Performed By: #### C DP, BMP, LIPR, MG, GLYHGB #### [facility] [address] [place] [address] Coordinate Measuring Machine Operator: Zaki Humphries MD Eosinophils (Bld) [#/Vol] NOT REPORTED Normal [facility] Comment on above: Performed By: #### C DP, BMP, LIPR, MG, GLYHGB #### [facility] [address] [place] [address] Coordinate Measuring Machine Operator: Zaki Humphries MD Metamyelocytes/100 WBC (Bld) NOT REPORTED Normal [facility] Comment on above: Performed By: #### C DP, BMP, LIPR, MG, GLYHGB #### [facility] [address] [place] [address] Coordinate Measuring Machine Operator: Zaki Humphries MD Beckham/Macrophage NOT REPORTED Normal [facility] Comment on above: Performed By: #### C DP, BMP, LIPR, MG, GLYHGB #### [facility] [address] [place] [address] Coordinate Measuring Machine Operator: Zaki Humphries MD Myelocyte NOT REPORTED Normal [facility] Comment on above: Performed By: #### C DP, BMP, LIPR, MG, GLYHGB #### [facility] [address] [place] [address] Coordinate Measuring Machine Operator: Zaki Humphries MD Echo Completeon 05-25-2019 Juancarlos, pn Incoming Cardio Results From [facility]/ - 05/25/2019 6:26 PM EDT Transthoracic Echocardiography Report (TTE) Patient Name NATHANAEL Date of Study 05/25/2019 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 Procedure Date Date: 05/25/2019 Start: 04:30 PM Study Location: [facility] Technical Quality: Fair visualization [...] Wall E' velocity:0.12 m/s Lateral Wall E/E':7.3 [facility] [place] Transthoracic Echocardiography Report (TTE) Patient Name NATHANAEL Date of Study 05/25/2019 SULY Farmer Date of 1960 Gender Female Age 58 year(s) Race Room Number 0523 Height: 68 inch, 172.72 cm Corporate ID [id number] Weight: 210 pounds, 95.3 kg # Patient Acct [id number] BSA: 2.09 m^2 BMI: 31.93 # kg/m^2 MR # [id number] Skin Lifter Bacon Renetta Eng Interpreting Physician Tommy Campuzano Fellow Referring Nurse Practitioner Interpreting Referring Physician Bettie Horn DO Fellow Type of Study TTE procedure:2D Echocardiogram, M-Mode, Doppler, Color Doppler, Bubble Study. Procedure Date Date: 05/25/2019 Start: 04:30 PM Study Location: [facility] Technical Quality: Fair visualization [...] Wall E' velocity:0.12 m/s Lateral Wall E/E':7.3 [place] Glucose, CSFon 05-25-2019 Glucose, CSF 97 mg/dL High 40 - 70 mg/dL [facility], [place] Glucose,CSFon 05-25-2019 Glucose [Mass/Vol] 97 mg/dL High 40-70 [facility] Comment on above: Performed By: #### C DP, BMP, LIPR, MG, GLYHGB #### [facility] [address] [place] [address] Coordinate Measuring Machine Operator: Zaki Humphries MD Gram Stainon 05-25-2019 Microscopic observation Gram stain Nom (Unsp spec) Specimen Description .CSF Special Requests NOT REPORTED Direct Exam FEW MONONUCLEAR WHITE BLOOD CELLS SEEN NO BACTERIA SEEN Gram stain made from cytocentrifuged specimen. Organisms and cells will be concentrated. Report Status FINAL 05/25/2019 Normal [facility] Comment on above: Performed By: #### C DP, BMP, LIPR, MG, GLYHGB #### [facility] [place] [address] Coordinate Measuring Machine Operator: Zaki Humphries MD Direct Exam Gram stain made from cytocentrifuged specimen. Organisms and cells will be concentrated. [place] Direct Exam NO BACTERIA SEEN [place] Direct Exam FEW MONONUCLEAR WHIT E BLOOD CELLS SEEN Abnormal [place] Interpretation and review of laboratory results Abnormal [place] Special Requests NOT REPORTED [place] Specimen Description .CSF [place] IR LUMBAR PUNCTURE FOR DIAGN OSISon 05-25-2019 IR LUMBAR PUNCTURE FOR DIAGNOSIS EXAMINATION: FLUOROSCOPIC GUIDED LUMBAR PUNCTURE 05/25/2019 12:01 pm HISTORY: ORDERING SYSTEM PROVIDED HISTORY: vasculitis TECHNOLOGIST PROVIDED HISTORY: vasculitis Subarachnoid hemorrhage, workup for subarachnoid hemorrhage FLUOROSCOPY DOSE AND TYPE OR TIME AND EXPOSURES: DAP 134 cGy cm squared PROCEDURE: STERILE PROCESSING TECH: Geraldine Husain MD Informed consent was obtained after the risks and benefits of the procedure were discussed with the patient and all questions were answered fully. [place] protocol was observed and a standard timeout [...] Geraldine Husain MD 05/25/19 Final result Normal [facility] Successful fluoroscopic-guided lumbar puncture. [place] Juancarlos, Mhpn Incoming Radiant Results From [employer]acs - 05/25/2019 2:58 PM EDT EXAMINATION: FLUOROSCOPIC GUIDED LUMBAR PUNCTURE 05/25/2019 12:01 pm HISTORY: ORDERING SYSTEM PROVIDED HISTORY: vasculitis TECHNOLOGIST PROVIDED HISTORY: vasculitis Subarachnoid hemorrhage, workup for subarachnoid hemorrhage FLUOROSCOPY DOSE AND TYPE OR TIME AND EXPOSURES: DAP 134 cGy cm squared PROCEDURE: STERILE PROCESSING TECH: Geraldine Husain MD Informed consent was obtained after the risks and benefits of the procedure were discussed with the patient and all questions were answered fully. [place] protocol was observed and a standard timeout [...] procedure well. IMPRESSION: Successful fluoroscopic-guided lumbar puncture. [place] EXAMINATION: FLUOROSCOPIC GUIDED LUMBAR PUNCTURE 05/25/2019 12:01 pm HISTORY: ORDERING SYSTEM PROVIDED HISTORY: vasculitis TECHNOLOGIST PROVIDED HISTORY: vasculitis Subarachnoid hemorrhage, workup for subarachnoid hemorrhage FLUOROSCOPY DOSE AND TYPE OR TIME AND EXPOSURES: DAP 134 cGy cm squared PROCEDURE: STERILE PROCESSING TECH: Geraldine Husain MD Informed consent was obtained after the risks and benefits of the procedure were discussed with the patient and all questions were answered fully. [place] protocol was observed and a standard timeout [...] and the patient tolerated the procedure well. [place] Magnesiumon 05-25-2019 Magnesium [Mass/Vol] 2.4 mg/dL Normal 1.6-2.6 [facility] Comment on above: Performed By: #### C DP, BMP, LIPR, MG, GLYHGB #### [facility] [place], [place] [phone] Coordinate Measuring Machine Operator: Zaki Humphries MD Magnesium [Mass/Vol] 2.4 mg/dL 1.6 - 2 .6 mg/dL [place] Otheron 05-25-2019 Interpretation and review of laboratory results Abnormal [place] POC Glucose Fingerstickon Glucose [Mass/Vol] 218 mg/dL High 65 - 105 mg/dL [place], [place] Interpretation and review of laboratory results Abnormal [place] Glucose [Mass/Vol] 242 mg/dL High 65 - 105 mg/dL [place] Interpretation and review of laboratory results Abnormal [place] Glucose [Mass/Vol] 165 mg/dL High 65 - 105 mg/dL [place], [place] Interpretation and review of laboratory results Abnormal [place] Protein, CSFon 05-25-2019 Protein, CSF 69.2 mg/dL High 15 - 45 mg/dL [place] Protein, Total, CSFon 2019 Total Protein - CSF 69.2 mg/dL High 15.0-45.0 [facility] Comment on above: Performed By: #### C DP, BMP, LIPR, MG, GLYHGB #### [facility] [employer] [address] [place] [address] [phone] Coordinate Measuring Machine Operator: Zaki Humphries MD RA Screenon 05-25-2019 RA Screen 123.0 IU/mL High <14 [facility] Comment on above: Performed By: #### D AU #### [facility] [employer] [address] [place] [address] Coordinate Measuring Machine Operator: Zaki Humphries MD RHEUMATOID FACTORon 05-25-19 20 Interpretation and review of laboratory results Abnormal [place] Rheumatoid Factor 123 High <14 IU/mL [place], [place] Basic Metabolic Profon 05-23 (cont.) Normal [facility] Comment on above: Result Comment: Aver age GFR for 50-59 years old: 93 mL/min/1.73sq m Chronic Kidney Disease: <60 mL/min/1.73sq m Kidney failure: <15 mL/min/1.73sq m eGFR calculated using average adult body mass. Additional eGFR calculator available at: http://www.DiscountDoc/multiple_crcl_2012.htm Performed By: #### C BC, BMP, MG ####[facility] [address] [place] [address] Lab Director: Zaki Humphries MD Anion gap [Moles/Vol] 12 mmol/L Normal 9-17 [facility] Comment on above: Performed By: #### C BC, BMP, MG ####[facility] [address] [place] [address] Lab Director: Zaki Humphries MD Calcium [Mass/Vol] 9.2 mg/dL Normal 8.6-10.4 [facility] Comment on above: Performed By: #### C BC, BMP, MG ####[facility] [address] [place], [place] [phone] Director: Zaki Humphries MD Chloride [Moles/Vol] 104 mmol/L Normal 98-107 [facility] Comment on above: Performed By: #### C BC, BMP, MG ####[facility] [address] [place], [place] [phone] Director: Zaki Humphries MD CO2 [Moles/Vol] 21 mmol/L Normal 20-31 [facility] Comment on above: Performed By: #### C BC, BMP, MG ####[facility] [address] [place], [place] [phone] Director: Zaki Humphries MD Creatinine [Mass/Vol] 0.65 mg/dL Normal 0.50-0.90 [facility] Comment on above: Performed By: #### C BC, BMP, MG ####[facility] [address] [place] [address] Lab Director: Zaki Humphries MD GFR, Amer >60 Normal >60 [facility] Comment on above: Performed By: #### C BC, BMP, MG ####[facility] [address] [place], [place] [phone] Director: Zaki Humphries MD GFR,non Amer >60 Normal >60 [facility] Comment on above: Performed By: #### C BC, BMP, MG ####[facility] [address] [place], [place] [phone] Director: Zaki Humphries MD Glucose [Mass/Vol] 102 mg/dL High 70-99 [facility] Comment on above: Performed By: #### C BC, BMP, MG ####[facility] [address] [place], [place] [phone] Director: Zaki Humphries MD Potassium [Moles/Vol] 4.0 mmol/L Normal 3.7-5.3 [facility] Comment on above: Performed By: #### C BC, BMP, MG ####[facility] [address] [place] [address] Lab Director: Zaki Humphries MD Sodium [Moles/Vol] 137 mmol/L Normal 135-144 [facility] Comment on above: Performed By: #### C BC, BMP, MG ####[facility] [address] [place] [address] Lab Director: Zaki Humphries MD Urea nitrogen [Mass/Vol] 17 mg/dL Normal 6-20 [facility] Comment on above: Performed By: #### C BC, BMP, MG ####[facility] [address] [place] [address] lab Director: Zaki Humphries MD BUN/CRE Ratio NOT REPORTED Normal 9-20 [facility] Comment on above: Performed By: #### C BC, BMP, MG ####[facility] [address] [place], [place] [phone] lab Director: Zaki Humphries MD Staging: NOT REPORTED Normal [facility] Comment on above: Performed By: #### C BC, BMP, MG ####[facility] [address] [place], [place] [phone] lab Director: Zaki Humphries MD Basic metabolic panelon 05-14 Anion gap [Moles/Vol] 12 mmol/L 9 - 17 mmol/L [place] Bun/Cre Ratio NOT REPORTED [place] Calcium [Mass/Vol] 9.2 mg/dL 8.6 - 10. 4 mg/dL [place] Chloride [Moles/Vol] 104 mmol/L 98 - 10 7 mmol/L [place] CO2 [Moles/Vol] 21 mmol/L 20 - 31 mmol/L [place] Creatinine [Mass/Vol] 0.65 mg/dL 0.5 - 0.9 mg/dL [place] GFR >60 >60 mL/min [place] GFR Non- >60 >60 mL/min [place] GFR/1.73 sq M predicted among non-blacks MDRD (S/P/Bld) [Vol rate/Area] [place] Comment on above: Average GFR for 50-5 9 years old: 93 mL/min/1.73sq m Chronic Kidney Disease: <60 mL/min/1.73sq m Kidney failure: <15 mL/min/1.73sq m eGFR calculated using average adult body mass. Additional eGFR calculator available at: http://www.Certus.Infinia/multiple_crcl_2012.htm GFR/1.73 sq M predicted among non-blacks MDRD (S/P/Bld) [Vol rate/Area] NOT REPORTED [place] Glucose [Mass/Vol] 102 mg/dL High 70 - 99 mg/dL [place], [place] Interpretation and review of laboratory results Abnormal [place] Potassium [Moles/Vol] 4.0 mmol/L 3.7 - 5.3 mmol/L [place] Sodium [Moles/Vol] 137 mmol/L 135 - 144 mmol/L [place] Urea nitrogen [Mass/Vol] 17 mg/dL 6 - 20 mg/dL [place] C-REACTIVE PROTEIN 020 CRP [Mass/Vol] 4.7 mg/L 0 - 5 mg/L [place], [place] C-Reactive Protein 020 CRP [Mass/Vol] 4.7 mg/L Normal 0.0-5.0 [facility] Comment on above: Performed By: #### D AU #### [facility] [address] [place], [place] [phone] Coordinate Measuring Machine Operator: Zaki Humphries MD C3on 05-24-2019 C3 140 mg/dL Normal 90-180 [facility] Comment on above: Performed By: #### C 3, C4, CRP, TSHX, PHEP, SED, RA, ANASCX, ANCACP, GBMG, APA, HIVX, CRYO ####[facility] [address] [place], [place] [phone] Lab Director: Zaki Humphries MD C3 COMPLEMENTon 05-24-2019 Complement C3 140 mg/dL 90 - 180 mg/dL [place] C4on 05-24-2019 C4 23 mg/dL Normal 10-40 [facility] Comment on above: Performed By: #### D AU #### [facility] [address] [place], [place] [phone] Coordinate Measuring Machine Operator: Zaki Humphries MD C4 COMPLEMENTon 05-24-2019 Complement C4 23 mg/dL 10 - 40 mg/dL [place] CBCon 05-24-2019 Erythrocyte distribution width (RBC) [Ratio] 13.1 % Normal 11.8-14.4 [facility] Comment on above: Performed By: #### C BC, BMP, MG ####[facility] [address] [place] [address] Lab Director: Zaki Humphries MD Hematocrit (Bld) [Volume fraction] 43.2 % Normal 36.3-47.1 [facility] Comment on above: Performed By: #### C BC, BMP, MG ####[facility] [address] [place] [address] Lab Director: Zaki Humphries MD Hemoglobin (Bld) [Mass/Vol] 14.0 g/dL Normal 11.9-15.1 [facility] Comment on above: Performed By: #### C BC, BMP, MG ####[facility] [address] [place] [address] Lab Director: Zaki Humphries MD MCH (RBC) [Entitic mass] 30.2 pg Normal 25.2-33.5 [facility] Comment on above: Performed By: #### C BC, BMP, MG ####[facility] [address] [place] [address] Lab Director: Zaki Humphries MD MCHC (RBC) [Mass/Vol] 32.4 g/dL Normal 28.4-34.8 [facility] Comment on above: Performed By: #### C BC, BMP, MG ####[facility] [address] [place] [address] Lab Director: Zaki Humphries MD MCV (RBC) [Entitic vol] 93.3 fL Normal 82.6-102.9 [facility] Comment on above: Performed By: #### C BC, BMP, MG ####[facility] [address] [place] [address] Lab Director: Zaki Humphries MD NRBC Automated 0.0 per 100 WBC Normal 0.0 [facility] Comment on above: Performed By: #### C BC, BMP, MG ####[facility] [address] [place] [address] Lab Director: Zaki Humphries MD Platelet mean volume (Bld) [Entitic vol] 9.3 fL Normal 8.1-13.5 [facility] Comment on above: Performed By: #### C BC, BMP, MG ####[facility] [address] [place], [place] [phone] Director: Zaki Humphries MD Platelets (Bld) [#/Vol] 262 10*3/uL Normal 138-453 [facility] Comment on above: Performed By: #### C BC, BMP, MG ####[facility] [address] [place], [place] [phone] Director: Zaki Humphries MD RBC (Bld) [#/Vol] 4.63 10*6/uL Normal 3.95-5.11 [facility] Comment on above: Performed By: #### C LAURA BMP, MG ####[facility] [address] [place], [place] [phone] Director: Zaki Humphries MD WBC (Bld) [#/Vol] 11.0 10*3/uL Normal 3.5-11.3 [facility] Comment on above: Performed By: #### C BC, BMP, MG ####[facility] [address] [place], [place] [phone] Director: Zaki Humphries MD Erythrocyte distribution width (RBC) [Ratio] 13.1 % 11.8 - 14.4 % [place] Hematocrit (Bld) [Volume fraction] 43.2 % 36.3 - 47.1 % [place] Hemoglobin (Bld) [Mass/Vol] 14.0 g/dL 11.9 - 15.1 g/dL [place] MCH (RBC) [Entitic mass] 30.2 pg 25.2 - 33.5 pg [place] MCHC (RBC) [Mass/Vol] 32.4 g/dL 28.4 - 34.8 g/dL [place] MCV (RBC) [Entitic vol] 93.3 fL 82.6 - 102.9 fL [place] Platelet mean volume (Bld) [Entitic vol] 9.3 fL 8.1 - 13.5 fL [place], [place] Platelets (Bld) [#/Vol] 262 10*3/uL [place] RBC (Bld) [#/Vol] 4.63 10*6/uL 3.95 - 5.1 1 m/uL [place] WBC (Bld) [#/Vol] 0.0 10*3/uL 0.0 per 10 0 WBC [place] WBC (Bld) [#/Vol] 11.0 10*3/uL [place] DNA Testingon 05-24-2019 DNA Testing (NOTE) Specimen(s) Received: Peripheral blood, [facility] Clinical Information: TIA RESULTS: MOLECULAR GENETIC DIAGNOSIS: Negative for Factor V Leiden Mutation INTERPRETATION: The Factor V Leiden mutation (1691GA) [c.1601G>A(p.Hve889Ebm )] was not detected in this study. This patient may, however, still be at risk for venous thrombosis due to another genetic predisposition including the Factor II (Prothrombin 44928EN) mutation or either of the 5, 10-methylenetetrahydro folate reductase (MTHFR) mutations (677T and Q7221B) Additional molecular testing is available for these [...] which predicts a single amino acid replacement ([id number]) at one of three activated protein C [...] the Invader Factor V test that utilizes [employer] chemistry for detecting gene-specific sequences. Target amplification [...] Invader and Cleavase are registered trademarks of [employer]. This test is performed pursuant to an agreement with [employer] Electronically Signed Out Archie Robison M.D. [facility] [address] [place] [phone] FACTOR V LEIDEN MUTATION ANALYSIS REPORT Lynd for [employer] Jorge Wilde MD, Archie Robison MD [facility] Comment on above: Performed By: #### C DP, BMP, LIPR, MG, GLYHGB #### [facility] [facility] [place], [place] [id number] Coordinate Measuring Machine Operator: Zaki Humphries MD HEPATITIS PANEL, [facility] HAV IgM IA Qn (S) NONREACTIVE NONREACTIVE [facility], [place] Hep B Core Ab, IgM NONREACTIVE NONREACTIVE [facility] Hepatitis B Surface Ag NONREACTIVE NONREACTIVE [facility] Hepatitis C Ab NONREACTIVE NONREACTIVE [facility], [place] Comment on above: The hepatitis C procedure [...] HCV RNA by PCR. Hepatitis Acute [facility] 05-23 Hep A Ab,IgM NONREACTIVE Normal NR [facility] Comment on above: Performed By: #### D AU #### [facility] [address] [place] [address] Coordinate Measuring Machine Operator: Zaki Humphries MD Hep B Core Ab,IgM NONREACTIVE Normal NR [facility] Comment on above: Performed By: #### D AU #### [facility] [address] [place] [address] [phone] Coordinate Measuring Machine Operator: Zaki Humphries MD Hep B Surf Ag NONREACTIVE Normal [facility] Comment on above: Performed By: #### D AU #### [facility] [employer] [address] [place] [address] Coordinate Measuring Machine Operator: Zaki Humphries MD Hep C Ab NONREACTIVE Normal NR [facility] Comment on above: Result Comment: The [...] PCR. Performed By: #### D AU #### [employer] [facility] [place] [address] Coordinate Measuring Machine Operator: Zaki Humphries MD Magnesiumon 05-24-2019 Magnesium [Mass/Vol] 2.4 mg/dL Normal 1.6-2.6 [facility] Comment on above: Performed By: #### C BC, BMP, MG ####[facility] [address] [place] [address] Lab Director: Zaki Humphries MD Magnesium [Mass/Vol] 2.4 mg/dL 1.6 - 2 .6 mg/dL [place] POC Glucose Fingerstickon Glucose [Mass/Vol] 190 mg/dL High 65 - 105 mg/dL [place] Interpretation and review of laboratory results Abnormal [place] Glucose [Mass/Vol] 170 mg/dL High 65 - 105 mg/dL [place] Interpretation and review of laboratory results Abnormal [place] Glucose [Mass/Vol] 85 mg/dL 65 - 105 mg/dL [place] Sedimentation Rateon 020 Sedimentation Rate 10 mm Normal 0-20 [facility] Comment on above: Performed By: #### D AU #### [facility] [address] [place] [address] Coordinate Measuring Machine Operator: Zaki Humphries MD Sed Rate 10 mm 0 - 20 mm [place] TSH w/reflex to FT4on 2019 TSH Qn 3.52 m[IU]/L Normal 0.30-5.00 [facility] Comment on above: Performed By: #### D AU #### [facility] [address] [place] [address] Coordinate Measuring Machine Operator: Zaki Humphries MD TSH with Reflexon 05-24-2019 TSH Qn 3.52 m[IU]/L [place] XR CHEST PORTABLEon 05-24-19 20 XR CHEST PORTABLE EXAMINATION: ONE XRAY VIEW OF THE CHEST 05/24/2019 2:14 pm COMPARISON: Chest radiograph performed 05/22/2019. HISTORY: ORDERING SYSTEM PROVIDED HISTORY: coughx2 weeks TECHNOLOGIST PROVIDED HISTORY: cough Reason for [...] Suresh Sanderson MD 05/24/19 Final result Normal [facility] No acute cardiopulmonary process. [place] EXAMINATION: ONE XRA Y VIEW OF THE CHEST 05/24/2019 2:14 pm COMPARISON: Chest radiograph performed 05/22/2019. HISTORY: ORDERING SYSTEM PROVIDED HISTORY: timoteo crawford TECHNOLOGIST PROVIDED HISTORY: cough Reason for Exam: supine port Acuity: Unknown Type of Exam: Unknown FINDINGS: There is no acute consolidation or effusion. There is no pneumothorax. The mediastinal structures are unremarkable. The upper abdomen is unremarkable. The extrathoracic soft tissues are unremarkable. There is no acute osseous abnormality. [place] Juancarlos, Mhpn Incoming Radiant Results From [employer] - 05/24/2019 2:28 PM EDT EXAMINATION: ONE XRAY VIEW OF THE CHEST 05/24/2019 2:14 pm COMPARISON: Chest radiograph performed 05/22/2019. HISTORY: ORDERING SYSTEM PROVIDED HISTORY: timoteo crawford TECHNOLOGIST PROVIDED HISTORY: cough Reason for Exam: supine port Acuity: Unknown Type of Exam: Unknown FINDINGS: There is no acute consolidation or effusion. There is no pneumothorax. The mediastinal structures are unremarkable. The upper abdomen is unremarkable. The extrathoracic soft tissues are unremarkable. There is no acute osseous abnormality. IMPRESSION: No acute cardiopulmonary process. [facility] [place] APTTon 05-23-2019 aPTT Coag (Bld) [Time] 24.3 s Normal 20.5-30.5 [facility] Comment on above: Performed By: #### P TT, PT ####[place] [place] [address] lab Director: Zaki Humphries MD aPTT Coag (Bld) [Time] 24.3 s [place] BASIC METABOLIC PANELon Anion gap [Moles/Vol] 13 mmol/L 9 - 17 mmol/L [place] Bun/Cre Ratio NOT REPORTED [place] Calcium [Mass/Vol] 9.3 mg/dL 8.6 - 10. 4 mg/dL [place] Chloride [Moles/Vol] 98 mmol/L 98 - 10 7 mmol/L [place] CO2 [Moles/Vol] 23 mmol/L 20 - 31 mmol/L [place] Creatinine [Mass/Vol] 0.63 mg/dL 0.5 - 0.9 mg/dL [place] GFR >60 >60 mL/min [place] GFR Non- >60 >60 mL/min [place] GFR/1.73 sq M predicted among non-blacks MDRD (S/P/Bld) [Vol rate/Area] [place] Comment on above: Average GFR for 50-5 9 years old: 93 mL/min/1.73sq m Chronic Kidney Disease: <60 mL/min/1.73sq m Kidney failure: <15 mL/min/1.73sq m eGFR calculated using average adult body mass. Additional eGFR calculator available at: http://www.DiscountDoc/multiple_crcl_2012.htm GFR/1.73 sq M predicted among non-blacks MDRD (S/P/Bld) [Vol rate/Area] NOT REPORTED [place] Glucose [Mass/Vol] 110 mg/dL High 70 - 99 mg/dL [place], [place] Potassium [Moles/Vol] 3.4 mmol/L Low 3.7 - 5.3 mmol/L [place] Sodium [Moles/Vol] 134 mmol/L Low 135 - 144 mmol/L [place] Urea nitrogen [Mass/Vol] 16 mg/dL 6 - 20 mg/dL [place] Basic Metabolic Profon 05-22 (cont.) Normal [facility] Comment on above: Result Comment: Aver age GFR for 50-59 years old: 93 mL/min/1.73sq m Chronic Kidney Disease: <60 mL/min/1.73sq m Kidney failure: <15 mL/min/1.73sq m eGFR calculated using average adult body mass. Additional eGFR calculator available at: http://www.DiscountDoc/multiple_crcl_2012.htm Performed By: #### C BC, BMP, MG #### [facility] [address] [place] [address] Coordinate Measuring Machine Operator: Zaki Humphries MD Anion gap [Moles/Vol] 13 mmol/L Normal 9-17 [facility] Comment on above: Performed By: #### C BC, BMP, MG #### [facility] [address] [place] [address] Coordinate Measuring Machine Operator: Zaki Humphries MD Calcium [Mass/Vol] 9.2 mg/dL Normal 8.6-10.4 [facility] Comment on above: Performed By: #### C BC, BMP, MG #### [facility] [address] [place] [address] Coordinate Measuring Machine Operator: Zaki Humphries MD Chloride [Moles/Vol] 99 mmol/L Normal 98-107 [facility] Comment on above: Performed By: #### C BC, BMP, MG #### [facility] [address] [place] [address] Coordinate Measuring Machine Operator: Zaki Humphries MD CO2 [Moles/Vol] 24 mmol/L Normal 20-31 [facility] Comment on above: Performed By: #### C BC, BMP, MG #### [facility] [employer] [address] [place] [address] Coordinate Measuring Machine Operator: Zaki Humphries MD Creatinine [Mass/Vol] 0.72 mg/dL Normal 0.50-0.90 [facility] Comment on above: Performed By: #### C BC, BMP, MG #### [facility] [address] [place] [address], [place] [address] Coordinate Measuring Machine Operator: Zaki Humphries MD GFR, Amer >60 Normal >60 [facility] Comment on above: Performed By: #### C BC, BMP, MG #### [facility] [address] [place] [address] Coordinate Measuring Machine Operator: Zaki Humphries MD GFR,non Amer >60 Normal >60 [facility] Comment on above: Performed By: #### C BC, BMP, MG #### [facility] [address] [place] [address] Coordinate Measuring Machine Operator: Zaki Humphries MD Glucose [Mass/Vol] 99 mg/dL Normal 70-99 [facility] Comment on above: Performed By: #### C BC, BMP, MG #### [facility] [address] [place] [address] Coordinate Measuring Machine Operator: Zaki Humphries MD Potassium [Moles/Vol] 3.9 mmol/L Normal 3.7-5.3 [facility] Comment on above: Performed By: #### C BC, BMP, MG #### [facility] [address] [place] [address] Coordinate Measuring Machine Operator: Zaki Humphries MD Sodium [Moles/Vol] 136 mmol/L Normal 135-144 [facility] Comment on above: Performed By: #### C BC, BMP, MG #### [facility] [address] [place] [address] Coordinate Measuring Machine Operator: Zaki Humphries MD Urea nitrogen [Mass/Vol] 15 mg/dL Normal 6-20 [facility] Comment on above: Performed By: #### C BC, BMP, MG #### [facility] [address] [place] [address] Coordinate Measuring Machine Operator: Zaki Humphries MD BUN/CRE Ratio NOT REPORTED Normal 9-20 [facility] Comment on above: Performed By: #### C BC, BMP, MG #### [address] [address] Coordinate Measuring Machine Operator: Zaki Humphries MD Staging: NOT REPORTED Normal [facility] Comment on above: Performed By: #### C BC, BMP, MG #### [address] [address] Coordinate Measuring Machine Operator: Zaki Humphries MD (cont.) Normal [facility] Comment on above: Result Comment: Aver age GFR for 50-59 years old: 93 mL/min/1.73sq m Chronic Kidney Disease: <60 mL/min/1.73sq m Kidney failure: <15 mL/min/1.73sq m eGFR calculated using average adult body mass. Additional eGFR calculator available at: http://www.DiscountDoc/multiple_crcl_2012.htm Performed By: #### C DP, BMP, LIPR, MG, GLYHGB #### [address] [address] Coordinate Measuring Machine Operator: Zaki Humphries MD Anion gap [Moles/Vol] 13 mmol/L Normal 9-17 [facility] Comment on above: Performed By: #### C DP, BMP, LIPR, MG, GLYHGB #### [address] [phone] Coordinate Measuring Machine Operator: Zaki Humphries MD Calcium [Mass/Vol] 9.3 mg/dL Normal 8.6-10.4 [facility] Comment on above: Performed By: #### C DP, BMP, LIPR, MG, GLYHGB #### [address] [address] Coordinate Measuring Machine Operator: Zaki Humphries MD Chloride [Moles/Vol] 98 mmol/L Normal 98-107 [facility] Comment on above: Performed By: #### C DP, BMP, LIPR, MG, GLYHGB #### [facility] [employer] [address] [place] [address] Coordinate Measuring Machine Operator: Zaki Humphries MD CO2 [Moles/Vol] 23 mmol/L Normal 20-31 [facility] Comment on above: Performed By: #### C DP, BMP, LIPR, MG, GLYHGB #### [address] [address] Coordinate Measuring Machine Operator: Zaki Humphries MD Creatinine [Mass/Vol] 0.63 mg/dL Normal 0.50-0.90 [facility] Comment on above: Performed By: #### C DP, BMP, LIPR, MG, GLYHGB #### [address] [address] Coordinate Measuring Machine Operator: Zaki Humphries MD GFR, Amer >60 Normal >60 [facility] Comment on above: Performed By: #### C DP, BMP, LIPR, MG, GLYHGB #### [address] [address] Coordinate Measuring Machine Operator: Zaki Humphries MD GFR,non Amer >60 Normal >60 [facility] Comment on above: Performed By: #### C DP, BMP, LIPR, MG, GLYHGB #### [address] [address] Co[employer] Measuring Machine Operator: Zaki Humphries MD Glucose [Mass/Vol] 110 mg/dL High 70-99 [facility] Comment on above: Performed By: #### C DP, BMP, LIPR, MG, GLYHGB #### [address] [address] Coordinate Measuring Machine Operator: Zaki Humphries MD Potassium [Moles/Vol] 3.4 mmol/L Low 3.7-5.3 [facility] Comment on above: Performed By: #### C DP, BMP, LIPR, MG, GLYHGB #### [address] [place] [address] Coordinate Measuring Machine Operator: Zaki Humphries MD Sodium [Moles/Vol] 134 mmol/L Low 135-144 [facility] Comment on above: Performed By: #### C DP, BMP, LIPR, MG, GLYHGB #### [facility] [employer] [address] [place] [address] Coordinate Measuring Machine Operator: Zaki Humphries MD Urea nitrogen [Mass/Vol] 16 mg/dL Normal -20 [facility] Comment on above: Performed By: #### C DP, BMP, LIPR, MG, GLYHGB #### [facility] [address] [place] [address] Coordinate Measuring Machine Operator: Zaki Humphries MD BUN/CRE Ratio NOT REPORTED Normal 12-03 [facility] Comment on above: Performed By: #### C DP, BMP, LIPR, MG, GLYHGB #### [facility] [employer] [address] [place] [address] [phone] Coordinate Measuring Machine Operator: Zaki Humphries MD Staging: NOT REPORTED Normal [facility] Comment on above: Performed By: #### C DP, BMP, LIPR, MG, GLYHGB #### [facility] [address] [place] [address] Coordinate Measuring Machine Operator: Zaki Humphries MD Basic metabolic panelon Anion gap [Moles/Vol] 13 mmol/L 9 - 17 mmol/L [place] Bun/Cre Ratio NOT REPORTED [place] Calcium [Mass/Vol] 9.2 mg/dL 8.6 - 10. 4 mg/dL [place] Chloride [Moles/Vol] 99 mmol/L 98 - 10 7 mmol/L [place] CO2 [Moles/Vol] 24 mmol/L 20 - 31 mmol/L [place] Creatinine [Mass/Vol] 0.72 mg/dL 0.5 - 0.9 mg/dL [place] GFR >60 >60 mL/min [place] GFR Non- >60 >60 mL/min [place] GFR/1.73 sq M predicted among non-blacks MDRD (S/P/Bld) [Vol rate/Area] [place] Comment on above: Average GFR for 50-5 9 years old: 93 mL/min/1.73sq m Chronic Kidney Disease: <60 mL/min/1.73sq m Kidney failure: <15 mL/min/1.73sq m eGFR calculated using average adult body mass. Additional eGFR calculator available at: http://www.DiscountDoc/multiple_crcl_2012.htm GFR/1.73 sq M predicted among non-blacks MDRD (S/P/Bld) [Vol rate/Area] NOT REPORTED [place] Glucose [Mass/Vol] 99 mg/dL 70 - 99 mg/dL [place] Potassium [Moles/Vol] 3.9 mmol/L 3.7 - 5.3 mmol/L [place] Sodium [Moles/Vol] 136 mmol/L 135 - 144 mmol/L [place] Urea nitrogen [Mass/Vol] 15 mg/dL 6 - 20 mg/dL [place] CBCon 05-23-2019 Erythrocyte distribution width (RBC) [Ratio] 13.2 % Normal 11.8-14.4 [facility] Comment on above: Performed By: #### C KATHY SANCHEZ, MG #### [employer] [facility] [place] [address] Coordinate Measuring Machine Operator: Zaki Humphries MD Hematocrit (Bld) [Volume fraction] 47.1 % Normal 36.3-47.1 [facility] Comment on above: Performed By: #### C KATHY SANCHEZ, MG #### [employer] [address] [place] [phone] Coordinate Measuring Machine Operator: Zaki Humphries MD Hemoglobin (Bld) [Mass/Vol] 15.0 g/dL Normal 11.9-15.1 [facility] Comment on above: Performed By: #### C BC, BMP, MG #### [address] [address] Coordinate Measuring Machine Operator: Zaki Humphries MD MCH (RBC) [Entitic mass] 29.6 pg Normal 25.2-33.5 [facility] Comment on above: Performed By: #### C BC, BMP, MG #### [address] [address] Coordinate Measuring Machine Operator: Zaki Humphries MD MCHC (RBC) [Mass/Vol] 31.8 g/dL Normal 28.4-34.8 [facility] Comment on above: Performed By: #### C BC, BMP, MG #### [address] [address] Coordinate Measuring Machine Operator: Zaki Humphries MD MCV (RBC) [Entitic vol] 92.9 fL Normal 82.6-102.9 [facility] Comment on above: Performed By: #### C BC, BMP, MG #### [address] [address] Coordinate Measuring Machine Operator: Zaki Humphries MD NRBC Automated 0.0 per 100 WBC Normal 0.0 [facility] Comment on above: Performed By: #### C BC, BMP, MG #### [address] [address] Coordinate Measuring Machine Operator: Zaki Humphries MD Platelet mean volume (Bld) [Entitic vol] 9.6 fL Normal 8.1-13.5 [facility] Comment on above: Performed By: #### C BC, BMP, MG #### [facility] [employer] [address] [place] [address] Coordinate Measuring Machine Operator: Zaki Humphries MD Platelets (Bld) [#/Vol] 300 10*3/uL Normal 138-453 [facility] Comment on above: Performed By: #### C BC, BMP, MG #### [facility] [address] [place], [place] [phone] Coordinate Measuring Machine Operator: Zaki Humphries MD RBC (Bld) [#/Vol] 5.07 10*6/uL Normal 3.95-5.11 [facility] Comment on above: Performed By: #### C BC, BMP, MG #### [facility] [address] [place], [place] [phone] Coordinate Measuring Machine Operator: Zaki Humphries MD WBC (Bld) [#/Vol] 14.1 10*3/uL High 3.5-11.3 [facility] Comment on above: Performed By: #### C BC, BMP, MG #### [facility] [address] [place], [place] [phone] Coordinate Measuring Machine Operator: Zaki Humphries MD Erythrocyte distribution width (RBC) [Ratio] 13.2 % 11.8 - 14.4 % [place] Hematocrit (Bld) [Volume fraction] 47.1 % 36.3 - 47.1 % [place] Hemoglobin (Bld) [Mass/Vol] 15.0 g/dL 11.9 - 15.1 g/dL [place] Interpretation and review of laboratory results Abnormal [place] MCH (RBC) [Entitic mass] 29.6 pg 25.2 - 33.5 pg [place] MCHC (RBC) [Mass/Vol] 31.8 g/dL 28.4 - 34.8 g/dL [place] MCV (RBC) [Entitic vol] 92.9 fL 82.6 - 102.9 fL [place] Platelet mean volume (Bld) [Entitic vol] 9.6 fL 8.1 - 13.5 fL [place] Platelets (Bld) [#/Vol] 300 10*3/uL [place] RBC (Bld) [#/Vol] 5.07 10*6/uL 3.95 - 5.1 1 m/uL [place] WBC (Bld) [#/Vol] 0.0 10*3/uL 0.0 per 10 0 WBC [place] WBC (Bld) [#/Vol] 14.1 10*3/uL [place] CBC WITH AUTO DIFFERENTIALon 05-23-2019 Basophils (Bld) [#/Vol] 0.09 10*3/uL [place] Basophils/100 WBC (Bld) 1 % 0 - 2 % [place] Differential Type NOT REPORTED [place] Eosinophils (Bld) [#/Vol] 0.16 10*3/uL [place] Eosinophils/100 WBC (Bld) 1 % 1 - 4 % [place] Erythrocyte distribution width (RBC) [Ratio] 13.2 % 11.8 - 14.4 % [place] Hematocrit (Bld) [Volume fraction] 47.0 % 36.3 - 47.1 % [place] Hemoglobin (Bld) [Mass/Vol] 14.8 g/dL 11.9 - 15.1 g/dL [place] Immature granulocytes (Bld) [#/Vol] 0.11 10*3/uL [place] Immature granulocytes (Bld) [#/Vol] 1 % High 0 [place] Interpretation and review of laboratory results Abnormal [place] Lymphocytes (Bld) [#/Vol] 4.10 10*3/uL [place] Lymphocytes/100 WBC (Bld) 26 % 24 - 43 % [place] MCH (RBC) [Entitic mass] 29.6 pg 25.2 - 33.5 pg [place] MCHC (RBC) [Mass/Vol] 31.5 g/dL 28.4 - 34.8 g/dL [place] MCV (RBC) [Entitic vol] 94.0 fL 82.6 - 102.9 fL [place] Monocytes (Bld) [#/Vol] 1.05 10*3/uL [place] Monocytes/100 WBC (Bld) 7 % 3 - 12 % [place] Platelet mean volume (Bld) [Entitic vol] 9.3 fL 8.1 - 13.5 fL [place] Platelets (Bld) [#/Vol] 296 10*3/uL [place] Platelets (Bld) [#/Vol] NOT REPORTED [place] RBC (Bld) [#/Vol] 5.00 10*6/uL 3.95 - 5.1 1 m/uL [place] RBC morphology finding Nom (Bld) NOT REPORTED [place] Segmented neutrophils/100 WBC (Bld) 64 % 36 - 65 % [place] Segs Absolute 10.39 [place] WBC (Bld) [#/Vol] 0.0 10*3/uL 0.0 per 10 0 WBC [place] WBC (Bld) [#/Vol] 15.9 10*3/uL [place] WBC Morphology NOT REPORTED [place] CBC with Diffon 05-23-2019 Abs. Basophil 0.09 k/uL Normal 0.00-0.20 [facility] Comment on above: Performed By: #### C DP, BMP, LIPR, MG, GLYHGB #### [facility] [address] [place] [address] Coordinate Measuring Machine Operator: Zaki Humphries MD Abs.Imm.Granulocyte 0.11 k/uL Normal 0.00-0.30 [facility] Comment on above: Performed By: #### C DP, BMP, LIPR, MG, GLYHGB #### [facility] [address] [place] [address] Coordinate Measuring Machine Operator: Zaki Humphries MD Abs.Neutrophil (Seg) 10.39 k/uL High 1.50-8.10 [facility] Comment on above: Performed By: #### C DP, BMP, LIPR, MG, GLYHGB #### [facility] [address] [place] [address] Coordinate Measuring Machine Operator: Zaki Humphries MD Basophils/100 WBC (Bld) 1 % Normal 0-2 [facility] Comment on above: Performed By: #### C DP, BMP, LIPR, MG, GLYHGB #### [address] [address] Coordinate Measuring Machine Operator: Zaki Humphries MD Eosinophils (Bld) [#/Vol] 0.16 10*3/uL Normal 0.00-0.44 [facility] Comment on above: Performed By: #### C DP, BMP, LIPR, MG, GLYHGB #### [place] [address] Coordinate Measuring Machine Operator: Zaki Humphries MD Eosinophils/100 WBC (Bld) 1 % Normal 1-4 [facility] Comment on above: Performed By: #### C DP, BMP, LIPR, MG, GLYHGB #### [place] [address] Coordinate Measuring Machine Operator: Zaki Humphries MD Erythrocyte distribution width (RBC) [Ratio] 13.2 % Normal 11.8-14.4 [facility] Comment on above: Performed By: #### C DP, BMP, LIPR, MG, GLYHGB #### [place] [address] Coordinate Measuring Machine Operator: Zaki Humphries MD Hematocrit (Bld) [Volume fraction] 47.0 % Normal 36.3-47.1 [facility] Comment on above: Performed By: #### C DP, BMP, LIPR, MG, GLYHGB #### [place] [address] Coordinate Measuring Machine Operator: Zaki Humphries MD Hemoglobin (Bld) [Mass/Vol] 14.8 g/dL Normal 11.9-15.1 [facility] Comment on above: Performed By: #### C DP, BMP, LIPR, MG, GLYHGB #### [address] [address] Coordinate Measuring Machine Operator: Zaki Humphries MD Immature granulocytes (Bld) [#/Vol] 1 % High 0 [facility] Comment on above: Performed By: #### C DP, BMP, LIPR, MG, GLYHGB #### [place] [address] Coordinate Measuring Machine Operator: Zaki Humphries MD Lymphocytes (Bld) [#/Vol] 4.10 10*3/uL High 1.10-3.70 [facility] Comment on above: Performed By: #### C DP, BMP, LIPR, MG, GLYHGB #### [address] [address] Coordinate Measuring Machine Operator: Zaki Humphries MD Lymphocytes/100 WBC (Bld) 26 % Normal 24-43 [facility] Comment on above: Performed By: #### C DP, BMP, LIPR, MG, GLYHGB #### [address] [address] Coordinate Measuring Machine Operator: Zaki Humphries MD MCH (RBC) [Entitic mass] 29.6 pg Normal 25.2-33.5 [facility] Comment on above: Performed By: #### C DP, BMP, LIPR, MG, GLYHGB #### [address] [address] Coordinate Measuring Machine Operator: Zaki Humphries MD MCHC (RBC) [Mass/Vol] 31.5 g/dL Normal 28.4-34.8 [facility] Comment on above: Performed By: #### C DP, BMP, LIPR, MG, GLYHGB #### [address] [address] Coordinate Measuring Machine Operator: Zaki Humphries MD MCV (RBC) [Entitic vol] 94.0 fL Normal 82.6-102.9 [facility] Comment on above: Performed By: #### C DP, BMP, LIPR, MG, GLYHGB #### [address] [address] Coordinate Measuring Machine Operator: Zaki Humphries MD Monocytes (Bld) [#/Vol] 1.05 10*3/uL Normal 0.10-1.20 [facility] Comment on above: Performed By: #### C DP, BMP, LIPR, MG, GLYHGB #### [address] [address] Coordinate Measuring Machine Operator: Zaki Humphries MD Monocytes/100 WBC (Bld) 7 % Normal 3-12 [facility] Comment on above: Performed By: #### C DP, BMP, LIPR, MG, GLYHGB #### [address] [address] Coordinate Measuring Machine Operator: Zaki Humphries MD Neutrophil (Seg) 64 % Normal 36-65 [facility] Comment on above: Performed By: #### C DP, BMP, LIPR, MG, GLYHGB #### [address] [address] Coordinate Measuring Machine Operator: Zaki Humphries MD NRBC Automated 0.0 per 100 WBC Normal 0.0 [facility] Comment on above: Performed By: #### C DP, BMP, LIPR, MG, GLYHGB #### [address] [address] Coordinate Measuring Machine Operator: Zaki Humphries MD Platelet mean volume (Bld) [Entitic vol] 9.3 fL Normal 8.1-13.5 [facility] Comment on above: Performed By: #### C DP, BMP, LIPR, MG, GLYHGB #### [address] [address] Coordinate Measuring Machine Operator: Zaki Humphries MD Platelets (Bld) [#/Vol] 296 10*3/uL Normal 138-453 [facility] Comment on above: Performed By: #### C DP, BMP, LIPR, MG, GLYHGB #### [address] [address] Coordinate Measuring Machine Operator: Zaki Humphries MD RBC (Bld) [#/Vol] 5.00 10*6/uL Normal 3.95-5.11 [facility] Comment on above: Performed By: #### C DP, BMP, LIPR, MG, GLYHGB #### [address] [address] Coordinate Measuring Machine Operator: Zaki Humphries MD WBC (Bld) [#/Vol] 15.9 10*3/uL High 3.5-11.3 [facility] Comment on above: Performed By: #### C DP, BMP, LIPR, MG, GLYHGB #### [address] [address] Coordinate Measuring Machine Operator: Zaki Humphries MD Auto Diff Performed NOT REPORTED Normal [facility] Comment on above: Performed By: #### C DP, BMP, LIPR, MG, GLYHGB #### [address] [address] Coordinate Measuring Machine Operator: Zaki Humphries MD Platelets (Bld) [#/Vol] NOT REPORTED Normal [facility] Comment on above: Performed By: #### C DP, BMP, LIPR, MG, GLYHGB #### [facility] [employer] [address] [place] [address] Coordinate Measuring Machine Operator: Zaki Humphries MD RBC morphology finding Nom (Bld) NOT REPORTED Normal [facility] Comment on above: Performed By: #### C DP, BMP, LIPR, MG, GLYHGB #### [address] [address] Coordinate Measuring Machine Operator: Zaki Humphries MD WBC Morphology NOT REPORTED Normal [facility] Comment on above: Performed By: #### C DP, BMP, LIPR, MG, GLYHGB #### [address] [address] Coordinate Measuring Machine Operator: Zaki Humphries MD Drug Scr, Abuse, Uron 2019 Amphetamine(s),Ur Negative Normal NEG [facility] Comment on above: Result Comment: (Positive cutoff 1000 ng/mL) Performed By: #### D AU #### [address] [address] Coordinate Measuring Machine Operator: Zaki Humphries MD Barbiturate(s),Ur Negative Normal NEG [facility] Comment on above: Result Comment: (Positive cutoff 200 ng/mL) Performed By: #### D AU #### [address] [address] Coordinate Measuring Machine Operator: Zaki Humphries MD Base excess Calc (Bld) [Moles/Vol] Negative Normal NEG [facility] Comment on above: Result Comment: (Positive cutoff 300 ng/mL) Performed By: #### D AU #### [address] [address] Coordinate Measuring Machine Operator: Zaki Humphries MD Benzodiazepine(s) Negative Normal NEG [facility] Comment on above: Result Comment: (Positive cutoff 200 ng/mL) Performed By: #### D AU #### [facility] [employer] [address] [place] [address] Coordinate Measuring Machine Operator: Zaki Humphries MD Cannabinoid(s),Ur Negative Normal NEG [facility] Comment on above: Result Comment: (Positive cutoff 50 ng/mL) Performed By: #### D AU #### [address] [address] Coordinate Measuring Machine Operator: Zaki Humphries MD Interpretive Info Assay provides medic al screening only. The absence of expected drug(s) and/or Normal [facility] Comment on above: Result Comment: meta bolite(s) may indicate diluted or adulterated urine, limitations of testing or timing of collection. Testing for legal purposes should be confirmed by another method. To request confirmation of test result, please call the lab within 7 days of sample submission. Performed By: #### D AU #### [address] [address] Coordinate Measuring Machine Operator: Zaki Humphries MD Methadone Ql (U) Negative Normal NEG [facility] Comment on above: Result Comment: (Positive cutoff 300 ng/mL) Performed By: #### D AU #### [address] [address] Coordinate Measuring Machine Operator: Zaki Humphries MD Opiate(s), Ur Negative Normal NEG [facility] Comment on above: Result Comment: (Positive cutoff 300 ng/mL) Performed By: #### D AU #### [address] [address] Coordinate Measuring Machine Operator: Zaki Humphries MD Oxycodone, Urine Negative Normal NEG [facility] Comment on above: Result Comment: (Positive cutoff 100 ng/mL) Performed By: #### D AU #### [address] [address] Coordinate Measuring Machine Operator: Zaki Humphries MD Phencyclidine, Ur Negative Normal NEG [facility] Comment on above: Result Comment: (Positive cutoff 25 ng/mL) Performed By: #### D AU #### [address] [address] Coordinate Measuring Machine Operator: Zaki Humphries MD EEG video monitoringon 05-22 Meño Reyez MD 05/23/2019 9:31 PM LONG-TERM EEG-VIDEO MONITORING CLINICAL NEUROPHYSIOLOGY LABORATORY DEPARTMENT OF NEUROLOGY [facility] Patient: Suly Huffman Age: 58 y.o. Referring [...] Oral TID PRN Sandra Lock APRN - GUEST EXPERIENCE CAPTAIN 100 mg at 05/23/19 1012 fluticasone (FLONASE) 50 MCG/ACT nasal spray 1 spray 1 spray Each Nostril Daily Sandra Lock APRN - GUEST EXPERIENCE CAPTAIN 1 spray at 05/23/19 1012 levETIRAcetam (KEPPRA) tablet 500 mg 500 mg Oral BID Bettie Horn DO sodium chloride flush 0.9 % injection 10 mL 10 mL Intravenous PRN Sandra Lock COMPUTER DISCOVERY TEACHER - GUEST EXPERIENCE CAPTAIN sodium chloride flush 0.9 % injection 10 [...] mg 1.5 mL Intravenous ONCE PRN Bettie Horn DO promethazine (PHENERGAN) tablet 12.5 mg 12.5 [...] mg 10 mg Intravenous Q6H PRN Bettie Horn DO 0.9 % sodium chloride infusion Intravenous Continuous Bettie Horn DO 100 mL/hr at 05/23/19 0905 Technical [...] revealed no abnormalities. MEÑO REYEZ MD Diplomate, [place] Board of Psychiatry and Neurology Diplomate, [place] Board of Clinical Neurophysiology Diplomate, [place] Board of Epilepsy Please note this is a preliminary report and updated daily. The final report will have a summary of behavior and electrographic findings with clinical correlation. [facility], [place] EKG 12 Leadon 05-23-2019 Atrial Rate [address] [facility], [place] P [place] [address] [facility], [place] P-R Interval 194 ms [facility], [place] Q-T Interval 468 ms [facility], [place] QRS Duration 86 ms [facility], [place] QTc Calculation (Bazett) [address] [facility], [place] R [place] -30 degrees [facility] [place], [place] T [place] -[address] [facility], [place] Ventricular Rate 52 BPM [facility] [place] Sinus bradycardia Le ft axis deviation Abnormal ECG No previous ECGs available [facility], [place] [facility], Mhpn Incoming E kg Results From [facility] - 05/23/2019 2:16 PM EDT Sinus bradycardia Left axis deviation Abnormal ECG No previous ECGs available [place] HEMOGLOBIN A1Con 05-23-2019 Glucose [Mass/Vol] 111 mg/dL [place] Comment on above: The ADA and AACC rec ommend providing the estimated average glucose result to permit better patient understanding of their HBA1c result. HbA1c (Bld) [Mass fraction] 5.5 % 4 - 6 % [place] Hemoglobin A1Con 05-23-2019 HbA1c (Bld) [Mass fraction] 5.5 % Normal 4.0-6.0 [facility] Comment on above: Performed By: #### C DP, BMP, LIPR, MG, GLYHGB #### [facility] [address] [place] [address] Coordinate Measuring Machine Operator: Zaki Humphries MD HbA1c (Bld) [Mass fraction] 111 mg/dL Normal [facility] Comment on above: Result Comment: The ADA and AACC recommend providing the estimated average glucose result to permit better patient understanding of their HBA1c result. Performed By: #### C DP, BMP, LIPR, MG, GLYHGB #### [facility] [address] [place] [address] Coordinate Measuring Machine Operator: Zaki Humphries MD LIPID PANELon 05-23-2019 Cholesterol [Mass/Vol] 150 mg/dL <200 [place] Comment on above: Cholesterol Guidelines: <200 Desirable 200-240 Borderline >240 Undesirable Cholesterol in HDL [Mass/Vol] 31 mg/dL Low >40 [place] Comment on above: HDL Guidelines: <40 Undesirable 40-59 Borderline >59 Desirable Cholesterol in LDL [Mass/Vol] 74 mg/dL 0 - 130 mg/dL [place] Comment on above: LDL Guidelines: <100 Desirable 100-129 Near to/above Desirable 130-159 Borderline >159 Undesirable Direct (measured) LDL and calculated LDL are not interchangeable tests. Cholesterol in VLDL [Mass/Vol] NOT REPORTED High 1 - 30 mg/dL [place] Cholesterol.total/Ch olesterol in HDL [Mass ratio] 4.8 {ratio} <5 [place] Triglyceride [Mass/Vol] 226 mg/dL High <150 [place] Comment on above: Triglyceride Guidelines: <150 Desirable 150-199 Borderline 200-499 High >499 Very high Based on AHA Guidelines for fasting triglyceride, December 2011. Lipid Profileon 05-23-2019 Cholesterol [Mass/Vol] 150 mg/dL Normal <200 [facility] Comment on above: Result Comment: Cholesterol Guidelines: <200 Desirable 200-240 Borderline >240 Undesirable Performed By: #### C DP, BMP, LIPR, MG, GLYHGB #### [employer] [address] [place] [address] [phone] Coordinate Measuring Machine Operator: Zaki Humphries MD Cholesterol in HDL [Mass/Vol] 31 mg/dL Low >40 [facility] Comment on above: Result Comment: HDL Guidelines: <40 Undesirable 40-59 Borderline >59 Desirable Performed By: #### C DP, BMP, LIPR, MG, GLYHGB #### [facility] [address] [place] [address] [phone] Coordinate Measuring Machine Operator: Zaki Humphries MD Cholesterol in LDL [Mass/Vol] 74 mg/dL Normal 0-130 [facility] Comment on above: Result Comment: LDL Guidelines: <100 Desirable 100-129 Near to/above Desirable 130-159 Borderline >159 Undesirable Direct (measured) LDL and calculated LDL are not interchangeable tests. Performed By: #### C DP, BMP, LIPR, MG, GLYHGB #### [facility] [address] [place] [address] [phone] Coordinate Measuring Machine Operator: Zaki Humphries MD Cholesterol.total/Ch olesterol in HDL [Mass ratio] 4.8 {ratio} Normal <5 [facility] Comment on above: Performed By: #### C DP, BMP, LIPR, MG, GLYHGB #### [facility] [address] [place] [address] [phone] Coordinate Measuring Machine Operator: Zaki Humphries MD Triglyceride [Mass/Vol] 226 mg/dL High <150 [facility] Comment on above: Result Comment: Triglyceride Guidelines: <150 Desirable 150-199 Borderline 200-499 High >499 Very high Based on AHA Guidelines for fasting triglyceride, December 2011. Performed By: #### C DP, BMP, LIPR, MG, GLYHGB #### [facility] [address] [place], [place] [phone] Coordinate Measuring Machine Operator: Zaki Humphries MD Cholesterol in VLDL [Mass/Vol] NOT REPORTED Normal -30 [facility] Comment on above: Performed By: #### C DP, BMP, LIPR, MG, GLYHGB #### [address] [place] [address] Coordinate Measuring Machine Operator: Zaki Humphries MD MAGNESIUMon 05-23-2019 Magnesium [Mass/Vol] 2.4 mg/dL 1.6 - 2 .6 mg/dL [place], [place] MRSA DNA Probe, Nasalon MRSA, DNA, Nasal NEGATIVE: MRSA DNA n ot detected by nucleic acid amplification. NEGATIVE: MRSA DNA not detected by nucleic acid amplificati [place], [place] Comment on above: Results should be used as an adjunct to nosocomial control efforts to identify patients needing enhanced precautions. The test is not intended to identify patients with staphylococcal infections. Results should not be used to guide or monitor treatment for MRSA infections. Specimen Description .NASAL SWAB [place], [place] MRSA, DNA, Nasalon 0 MRSA, DNA, Nasal NEGATIVE: MRSA DNA n ot detected by nucleic acid amplification. Normal NMRSAA [facility] Comment on above: Result Comment: Results should be used as an adjunct to nosocomial control efforts to identify patients needing enhanced precautions. The test is not intended to identify patients with staphylococcal infections. Results should not be used to guide or monitor treatment for MRSA infections. Performed By: #### M RSANO ####[address] [address] Lab Director: Zaki Humphries MD Magnesiumon 05-23-2019 Magnesium [Mass/Vol] 2.4 mg/dL Normal 1.6-2.6 [facility] Comment on above: Performed By: #### C BC, BMP, MG ####[facility] [address] [place], [place] [id number] Lab Director: Zaki Humphries MD Magnesium [Mass/Vol] 2.4 mg/dL 1.6 - 2 .6 mg/dL [place], [place] Magnesium [Mass/Vol] 2.4 mg/dL Normal 1.6-2.6 [facility] Comment on above: Performed By: #### C DP, BMP, LIPR, MG, GLYHGB #### [facility] [address] [place] [address] Coordinate Measuring Machine Operator: Zaki Humphries MD Otheron 05-23-2019 Interpretation and review of laboratory results Abnormal [place], [place] PROTIME-INRon 05-23-2019 INR Coag (PPP) [Relative time] 1.0 {INR} [place] Comment on above: Therapeutic Range: Moderate Anticoagulant Intensity: INR = 2.0-3.0 High Anticoagulant Intensity: INR = 2.5-3.5 PT Coag (PPP) [Time] 11 s [place], [place] PTon 05-23-2019 INR Coag (PPP) [Relative time] 1.0 {INR} Normal [facility] Comment on above: Result Comment: Therapeutic Range: Moderate Anticoagulant Intensity: INR = 2.0-3.0 High Anticoagulant Intensity: INR = 2.5-3.5 Performed By: #### P TT, PT ####[address] [address] Lab Director: Zaki Humphries MD PT Coag (PPP) [Time] 11.0 s Normal 9.0-12.0 [facility] Comment on above: Performed By: #### P TT, PT ####[facility] [address] [place] [address] Lab Director: Zaki Humphries MD Troponinon 05-23-2019 Troponin I.cardiac [Mass/Vol] 7 ng/L Normal 0-14 [facility] Comment on above: Result Comment: High Sensitivity Troponin values cannot be compared with other Troponin methodologies. Patients with high levels of Biotin oral intake (i.e >5mg/day) may have falsely decreased Troponin levels. Samples collected within 8 hours of biotin intake may require additional information for diagnosis. Performed By: #### T ROPI ####[address] [place] [address] Lab Director: Zaki Humphries MD Troponin I.cardiac [Mass/Vol] NOT REPORTED Normal <0.03 [facility] Comment on above: Performed By: #### T ROPI ####[employer] [place], [place] [id number] Lab Director: Zaki Humphries MD Troponin I.cardiac [Mass/Vol] NOT REPORTED [place] Troponin T.cardiac [Mass/Vol] NOT REPORTED <0.03 ng/mL [place] Troponin, High Sensitivity 7 ng/L 0 - 14 ng/L [place] Comment on above: High Sensitivity Troponin values cannot be compared with other Troponin methodologies. Patients with high levels of Biotin oral intake (i.e >5mg/day) may have falsely decreased Troponin levels. Samples collected within 8 hours of biotin intake may require additional information for diagnosis. Troponin I.cardiac [Mass/Vol] 7 ng/L Normal 0-14 [facility] Comment on above: Result Comment: High Sensitivity Troponin values cannot be compared with other Troponin methodologies. Patients with high levels of Biotin oral intake (i.e >5mg/day) may have falsely decreased Troponin levels. Samples collected within 8 hours of biotin intake may require additional information for diagnosis. Performed By: #### T ROPI ####[address] [place] [address] Lab Director: Zaki Humphries MD Troponin I.cardiac [Mass/Vol] NOT REPORTED Normal [facility] Comment on above: Performed By: #### T ROPI ####[address] [place], [place] [id number] Lab Director: Zaki Humphries MD Troponin I.cardiac [Mass/Vol] NOT REPORTED [place] Troponin T.cardiac [Mass/Vol] NOT REPORTED <0.03 ng/mL [place] Troponin, High Sensitivity 7 ng/L 0 - 14 ng/L [place] Comment on above: High Sensitivity Troponin values cannot be compared with other Troponin methodologies. Patients with high levels of Biotin oral intake (i.e >5mg/day) may have falsely decreased Troponin levels. Samples collected within 8 hours of biotin intake may require additional information for diagnosis. VL TRANSCRANIAL DOPPLER COMP LETEon 05-23-2019 Juancarlos, pn Incoming Cardio Results From [facility]/Ge - 05/23/2019 5:15 PM EDT [facility] Vascular Transcranial Procedure Patient Name NATHANAEL Date of Study 05/23/2019 SULY Marleny Date of 1960 Gender Female Age 58 year(s) Race Room Number 0523 Corporate ID [id number] # Patient Acct [id number] # MR # [id number] Skin Lifter Bacon Carole Hooks RVT, [facility] [[email or web address]] Interpreting Gunnar Morgan Physician Referring Referring Physician SANDRA LOCK APRN-GUEST EXPERIENCE CAPTAIN Nurse Practitioner Additional Comments CLASSIFICATION OF VASOSPASM [...] 85.1 Mid AMAIRANI: 83.9 Mid AMAIRANI: 105 [employer]AFOOD [employer] SERVICE MEAT MANAGER: 32.3 SEAFOOD AND SERVICE MEAT MANAGER: 22.7 T ICA: 40.4 T ICA: 37.7 [...] ! + +-------+- ------+--------+------ -+-------+--------+--- --------- + [facility] Vascular Transcranial Procedure Patient Name NATHANAEL Date of Study 05/23/2019 SULY Farmer Date of 1960 Gender Female Age 58 year(s) Race Room Number 0523 Corporate ID [id number] # Patient Acct [id number] # MR # [id number] Skin Lifter Bacon Carole Hooks, LEN[place], [facility] [[email or web address]] Interpreting Gunnar Morgan Physician Referring Referring Physician [...] 85.1 Mid AMAIRANI: 83.9 Mid AMAIRANI: 105 SEAFOOD AND SERVICE MEAT MANAGER: 32.3 SEAFOOD AND SERVICE MEAT MANAGER: 22.7 T ICA: 40.4 T ICA: 37.7 [...] ! ! + +-------+- ------+--------+------ -+-------+--------+--- ---------+ [facility] [place], [place] CBC AUTO DIFFon 05-22-2019 Basophils (Bld) [#/Vol] 0.1 103/ul Normal 0.0-0.1 [facility] Comment on above: Performed By: #### C BC #### [facility] [address] [place] [address] Piotr Marilee Basophils/100 WBC (Bld) 0.6 % Normal 0.2-2.0 [facility] Comment on above: Performed By: #### C BC #### [facility] [address] [place] [address] Piotr Marilee Eosinophils (Bld) [#/Vol] 0.2 103/ul Normal 0.0-0.7 [facility] Comment on above: Performed By: #### C BC #### [facility] [address] [place], [place] [address] Piotr Marilee Eosinophils/100 WBC (Bld) 1.5 % Normal 0.9-7.0 [facility] Comment on above: Performed By: #### C BC #### [facility] [address] [place], [place] [address] Piotr Marilee Erythrocyte distribution width (RBC) [Ratio] 13.2 % Normal 11.0-15.0 [facility] Comment on above: Performed By: #### C BC #### [facility] [address] [place], [place] [address] Piotr Marilee Hematocrit (Bld) [Volume fraction] 47.0 % Normal 36.0-48.0 [facility] Comment on above: Performed By: #### C BC #### [facility] [address] [place], [place] [address] Piotr Marilee Hemoglobin (Bld) [Mass/Vol] 15.5 g/dL Normal 12.0-16.0 [facility] Comment on above: Performed By: #### C BC #### [facility] [address] [place], [place] [address] Piotr Marilee IG # 0.10 10e3/ul Critically high 0.00-0.03 [facility] Comment on above: Performed By: #### C BC #### [facility] [address] [id number] Piotr Marilee IG % 0.8 % Critically high 0.0-0.5 [facility] Comment on above: Performed By: #### C BC #### [facility] [address] [id number] Piotr Marilee Lymphocytes (Bld) [#/Vol] 3.3 103/ul Normal 1.2-3.8 [facility] Comment on above: Performed By: #### C BC #### [facility] [address] [place], [place] [address] Piotr Marilee Lymphocytes/100 WBC (Bld) 25.7 % Normal 20.5-60.0 [facility] Comment on above: Performed By: #### C BC #### [facility] [address] [place], [place] [address] Piotr Marilee MANUAL DIFF REQ NO Normal [facility] Comment on above: Performed By: #### C BC #### [facility] [address] [place], [place] [address] Piotr Marilee MCH (RBC) [Entitic mass] 29.5 pg Normal 26.7-34.0 [facility] Comment on above: Performed By: #### C BC #### [facility] [address] [place] [address] Piotr Marilee MCHC (RBC) [Mass/Vol] 33.0 g/dL Normal 29.9-35.2 [facility] Comment on above: Performed By: #### C BC #### [facility] [address] [place], [place] [address] Piotr Marilee MCV (RBC) [Entitic vol] 89.5 fL Normal 81.0-99.0 [facility] Comment on above: Performed By: #### C BC #### [facility] [address] [place], [place] [address] Piotr Marilee Monocytes (Bld) [#/Vol] 1.0 103/ul Critically high 0.3-0.8 [facility] Comment on above: Performed By: #### C BC #### [facility] [address] [place], [place] [address] Piotr Marilee Monocytes/100 WBC (Bld) 7.5 % Normal 1.7-12.0 [facility] Comment on above: Performed By: #### C BC #### [facility] [address] [place] [address] Piotr Marilee Neutrophils (Bld) [#/Vol] 8.1 103/ul Critically high 1.4-6.5 [facility] Comment on above: Performed By: #### C BC #### [facility] [address] [place], [place] [address] Piotr Marilee Neutrophils/100 WBC (Bld) 63.9 % Normal 43.0-75.0 [facility] Comment on above: Performed By: #### C BC #### [facility] [address] [place] [address] Piotr Marilee Platelet mean volume (Bld) [Entitic vol] 9.3 fL Critically low 9.5-13.5 [facility] Comment on above: Performed By: #### C BC #### [facility] [address] [place] [address] Piotr Marilee Platelets (Bld) [#/Vol] 319 103/ul Normal 150-450 [facility] Comment on above: Performed By: #### C BC #### [facility] [address] [place] [address] Piotr Marilee RBC (Bld) [#/Vol] 5.25 106/ul Normal 4.20-5.40 [facility] Comment on above: Performed By: #### C BC #### [facility] [address] [place] [address] Piotr Marilee WBC (Bld) [#/Vol] 12.7 103/ul Critically high 4.0-11.0 T [facility] Comment on above: Performed By: #### C #### [facility] [address] [place] HEAD WO CONon 05-22-2019 [...] time on May 22, 2019. Normal [facility] CTA HEAD NECK W CONTRASTon [...] John Jordan MD 05/22/19 Final result Normal [facility] Juancarlos, pn Incoming Radiant Results From [place]/[facility] - 05/22/2019 8:26 PM EDT EXAMINATION: CTA [...] occlusion detected within the head or neck. [place], [place] EXAMINATION: CTA OF THE HEAD AND [...] See separately dictated noncontrast head CT report. [place], [place] No cerebral aneurysm or vascular malformation visualized. No flow limiting stenosis or large vessel occlusion detected within the head or neck. [place] DRUG SCREEN MULTI URINEon Amphetamine Screen, Ur Negative NEGATIVE [place] Comment on above: (Positive cutoff 1000 ng/mL) Barbiturate Screen, Ur Negative NEGATIVE [place] Comment on above: (Positive cutoff 200 ng/mL) Benzodiazepine Screen, Urine Negative NEGATIVE [place] Comment on above: (Positive cutoff 200 ng/mL) Buprenorphine Urine NOT REPORTED NEGATIVE [place], [place] Cannabinoid Scrn, Ur Negative NEGATIVE [place] Comment on above: (Positive cutoff 50 ng/mL) Cocaine Metabolite, Urine Negative NEGATIVE [place] Comment on above: (Positive cutoff 300 ng/mL) MDMA, Urine NOT REPORTED NEGATIVE [place], [place] Methadone Screen, Urine Negative NEGATIVE [place] Comment on above: (Positive cutoff 300 ng/mL) Methamphetamine, Urine NOT REPORTED NEGATIVE [place] Opiates, Urine Negative NEGATIVE [place], [place] Comment on above: (Positive cutoff 300 ng/mL) Oxycodone Screen, Ur Negative NEGATIVE [place] Comment on above: (Positive cutoff 100 ng/mL) Phencyclidine, Urine Negative NEGATIVE [place] Comment on above: (Positive cutoff 25 ng/mL) Propoxyphene, Urine NOT REPORTED NEGATIVE [place], [place] Test Information Assay provides medic al screening only. The absence of expected drug(s) and/or metabolite(s) may indicate diluted or adulterated urine, limitations of testing or timing of collection. [place], [place] Comment on above: Testing for legal pu rposes should be confirmed by another method. To request confirmation of test result, please call the lab within 7 days of sample submission. Tricyclic Antidepressants, Urine NOT REPORTED NEGATIVE [place], [place] Drug Scr, Abuse, Uron 2019 Buprenorphrine, Ur NOT REPORTED Normal NEG [facility] Comment on above: Performed By: #### D AU #### [facility] [address] [place] [address] Coordinate Measuring Machine Operator: Zaki Humphries MD MDMA, Urine NOT REPORTED Normal NEG [facility] Comment on above: Performed By: #### D AU #### [facility] [address] [place] [address] Coordinate Measuring Machine Operator: Zaki Humphries MD Methamphetamine, Ur NOT REPORTED Normal NEG [facility] [place] Comment on above: Performed By: #### D AU #### [address] [address] Coordinate Measuring Machine Operator: Zaki Humphries MD Propoxyphene,Urine NOT REPORTED Normal NEG [facility] Comment on above: Performed By: #### D AU #### [address] [address] Coordinate Measuring Machine Operator: Zaki Humphries MD Tricyclic antidepressants Screen Ql (U) NOT REPORTED Normal NEG [facility] Comment on above: Performed By: #### D AU #### [address] [address] Coordinate Measuring Machine Operator: Zaki Humphries MD ER URINE PROFILEon 0 Bilirubin [Mass/Vol] Negative Normal NEGATIVE [facility] Comment on above: Performed By: #### E RUR ####[facility] [address] [place], [place] [address]Uevhsa Marilee BLOOD Negative Normal NEGATIVE [facility] Comment on above: Performed By: #### E RUR ####[facility] [address] [place], [place] [address]Nhyycz Marilee Clarity (U) CLEAR Normal [facility] Comment on above: Performed By: #### E RUR ####[facility] [address] [place], [place] [address]Chdrxw Marilee Color (U) LT. YELLOW Normal YELLOW [facility] Comment on above: Performed By: #### E RUR ####[facility] [address] [place] [address] Marilee ERUAHD A micrscopic examination will be performed if indicated. Normal [facility] Comment on above: Performed By: #### E RUR ####[facility] [address] [place] [address] Marilee Glucose [Mass/Vol] Negative Normal NEGATIVE [facility] Comment on above: Performed By: #### E RUR ####[facility] [address] [place] [address] Marilee Ketones Ql (U) Negative Normal NEGATIVE [facility] Comment on above: Performed By: #### E RUR ####[facility] [address] [place] [address] Marilee Nitrite Ql (U) Negative Normal NEGATIVE [facility] Comment on above: Performed By: #### E RUR ####[facility] [address] [place] [address] Marilee pH (Bld) 6.0 Normal 5-9 [facility] Comment on above: Performed By: #### E RUR ####[facility] [address] [place] [address] Marilee Protein (U) [Mass/Vol] Negative Normal [facility] Comment on above: Performed By: #### E RUR ####[facility] [address] [place] [address] Mairlee SPEC GRAVITY 1.010 Normal 1.005-<=1.025 [facility] Comment on above: Performed By: #### E RUR ####[facility] [address] [place] [address] Marilee UR MICRO IND NOT INDICATED Normal [facility] Comment on above: Performed By: #### E RUR ####[facility] [address] [place] [address] Marilee Urobilinogen Qn (U) 0.2 EU/dl Normal [facility] Comment on above: Performed By: #### E RUR ####[facility] [address] [place], [place] [address]Fcdjxu Marilee WBC (Bld) [#/Vol] Negative Normal NEGATIVE [facility] Comment on above: Performed By: #### E RUR ####[facility] [address] [place], [place] [address]Mttbci Marilee LACTATE/LACTIC ACIDon 2019 Lactate [Moles/Vol] 0.9 mmol/L Normal 0.7-2.0 [facility] Comment on above: Performed By: #### L ACT ####[facility] [address] [place], [place] [address]Wwzdeh Marilee MRI BRAIN W WO CONTRASTon MRI [...] Filiberto Chamberlain MD 05/22/19 Final result Normal [facility] Juancarlos, Mhpn Incoming Radiant Results From [place]/[facility] - 05/22/2019 8:06 PM EDT EXAMINATION: MRI [...] discussed with Dr. Iqbal at 7:56 p.m. [place], [place] Subarachnoid hemorrhage central sulcus on the [...] discussed with Dr. Iqbal at 7:56 p.m. [place] EXAMINATION: MRI OF THE BRAIN WITHOUT [...] signal within the mastoid air cells bilaterally. [place], [place] MRSA, DNA, Nasalon 0 Specimen Description .NASAL SWAB Normal [facility] [place] Comment on above: Performed By: #### M RSANO ####[address] [place] [address] Lab Director: Zaki Humphries MD PROF 14(COMP METB)on 020 Albumin [Mass/Vol] 3.8 g/dL Normal 3.5-5.0 [facility] Comment on above: Performed By: #### C MP, TROP, TSH #### [facility] [address] [place] [id number] Piotr Marilee Albumin/Globulin [Mass ratio] 0.9 {ratio} Normal [facility] Comment on above: Performed By: #### C MP, TROP, TSH #### [facility] [address] [place] [id number] Piotr Marilee ALP [Catalytic activity/Vol] 59 U/L Normal 38-126 [facility] Comment on above: Performed By: #### C MP, TROP, TSH #### [facility] [address] [place] [address] Piotr Marilee ALT [Catalytic activity/Vol] 64 U/L Critically high 9-52 [facility] Comment on above: Performed By: #### C MP, TROP, TSH #### [facility] [address] [place] [address] Piotr Marilee Anion gap [Moles/Vol] 15.5 mmol/L Normal [facility] Comment on above: Performed By: #### C MP, TROP, TSH #### [facility] [address] [place] [address] Piotr Marilee AST [Catalytic activity/Vol] 33 U/L Normal 14-36 [facility] Comment on above: Performed By: #### C MP, TROP, TSH #### [facility] [address] [id number] Piotr Marilee Bilirubin Ql (U) 0.3 mg/dL Normal 0.2-1.3 [facility] Comment on above: Performed By: #### C MP, TROP, TSH #### [facility] [address] [address] Piotr Marilee Calcium [Mass/Vol] 9.7 mg/dL Normal 8.4-10.2 [facility] Comment on above: Performed By: #### C MP, TROP, TSH #### [facility] [address] [place] [id number] Piotr Marilee Chloride [Moles/Vol] 100 mmol/L Normal 98-107 [facility] Comment on above: Performed By: #### C MP, TROP, TSH #### [facility] [address] [place] [address] Piotr Marilee CO2 [Moles/Vol] 27.2 mmol/L Normal 22.0-30.0 [facility] Comment on above: Performed By: #### C MP, TROP, TSH #### [facility] [address] [place] [address] Piotr Marilee Creatinine [Mass/Vol] 0.80 mg/dL Normal 0.52-1.04 [facility] Comment on above: Performed By: #### C MP, TROP, TSH #### [facility] [address] [place] [address] Piotr Marilee EGFR-AF GREEK >60 Normal >=60 [facility] Comment on above: Performed By: #### C MP, TROP, TSH #### [facility] [address] [place] [address] Piotr Marilee EGFR-NON AF GREEK >60 Normal >=60 [facility] Comment on above: Performed By: #### C MP, TROP, TSH #### [facility] [address] [place] [address] Piotr Marilee Globulin (S) [Mass/Vol] 4.2 g/dL Normal [facility] Comment on above: Performed By: #### C MP, TROP, TSH #### [facility] [address] [place] [address] Piotr Marilee Glucose [Mass/Vol] 97 mg/dL Normal 74-106 [facility] Comment on above: Performed By: #### C MP, TROP, TSH #### [facility] [address] [place] [address] Piotr Marilee Potassium [Moles/Vol] 3.7 mmol/L Normal 3.4-5.0 [facility] Comment on above: Performed By: #### C MP, TROP, TSH #### [facility] [address] [place] [address] Piotr Marilee Protein [Mass/Vol] 8.0 g/dL Normal 6.1-8.2 [facility] Comment on above: Performed By: #### C MP, TROP, TSH #### [facility] [address] [place] [address] Piotr Marilee Sodium [Moles/Vol] 139 mmol/L Normal 137-145 [facility] Comment on above: Performed By: #### C MP, TROP, TSH #### [facility] [address] [place] [address] Piotr Marilee Urea nitrogen [Mass/Vol] 20.0 mg/dL Critically high 7.0-17.0 [facility] Comment on above: Performed By: #### C MP TROP, TSH #### [facility] [address] [place] [address] Piotr Marilee Urea nitrogen/Creatinine [Mass ratio] 25.0 mg/mg Normal [facility] Comment on above: Performed By: #### C MP TROP, TSH #### [facility] [address] [place] [address] Piotr Marilee PROTIMEon 05-22-2019 INR Coag (PPP) [Relative time] 1.07 {INR} Normal [facility] Comment on above: Performed By: #### P T, PTT #### [facility] [address] [place] [address] Piotr Marilee PT Coag (PPP) [Time] SEE BELOW Normal [facility] Comment on above: Result Comment: DUONG RED INR: 2.0 - 3.0 CONDITIONS NOT LISTED BELOW 2.5 - 3.5 FOR PROSTHETIC HEART VALVE REPLACEMENT 2.5 - 3.5 RECURRENT THROMBOSIS Performed By: #### P T, PTT #### [facility] [address] [place], [place] [id number] Piotr Marilee PT Coag (PPP) [Time] 11.1 s Normal 9.0-11.6 [facility] Comment on above: Performed By: #### P T, PTT #### [facility] [address] [place] [address] Piotr Marilee PT Coag (PPP) [Time] PLEASE NOTE: NORMAL RANGE CHANGE 12-01-2013 DUE TO REAGENT LOT CHANGE Normal [facility] Comment on above: Performed By: #### P T, PTT #### [facility] [address] [place] [address] Piotr Hunt PTTon 05-22-2019 aPTT Coag (Bld) [Time] PLEASE NOTE: NORMAL RANGE CHANGE 02-07-2015 DUE TO REAGENT LOT CHANGE Normal [facility] Comment on above: Performed By: #### P T, PTT #### [facility] [address] [place] [address] Piotr Hunt aPTT Coag (Bld) [Time] 23.6 s Normal 22.3-36.2 [facility] Comment on above: Performed By: #### P T, PTT #### [facility] [address] [place] [address] Piotr Hunt TROPONIN - Ion 05-22-2019 Troponin I.cardiac [Mass/Vol] ng/mL Normal <=0.034 [facility] Comment on above: Performed By: #### C MP, TROP, TSH #### [facility] [address] [place] [address] Piotr Hunt Troponin I.cardiac [Mass/Vol] SEE BELOW Normal [facility] Comment on above: Result Comment: <0.0 34 ng/ml NEGATIVE 0.034-0.119 INDETERMINATE 0.120 AMI CUT OFF Performed By: #### C MP, TROP, TSH #### [facility] [address] [place] [address] Piotr Hunt TSHon 05-22-2019 TSH Qn 3.019 uIU/mL Normal 0.470-4.680 [facility] Comment on above: Performed By: #### C MP, TROP, TSH ####[facility] [id number] [place] [address]Gerelías Hunt TSH Qn SEE BELOW Normal [facility] Comment on above: Result Comment: <0.3 4 UIU/ml HYPERTHYROID 0.34-5.60 UIU/ml EUTHYROID >5.60 UIU/ml HYPOTHYROID Performed By: #### C MP, TROP, TSH ####[facility] [id number] [place] [address]Gerelías Hunt XR CHEST 2 Von 05-22-2019 XR CHEST 2 V EXAM: XR CHEST 2 V HISTORY: COUGH COMPARISON: None. TECHNIQUE: 2 views of the chest are submitted for review. FINDINGS: The heart size is normal. Lungs are clear. No focal consolidation, pneumothorax or pleural effusion is seen. The osseous structures appear unremarkable. IMPRESSION: No radiographic evidence for acute cardiopulmonary disease. Normal [facility] CONSULTATIONon 03-28-2019 CONSULTATION CONSULTATION PAIN [...] would like to proceed with Motrin 800 vimx-vpz-uqdrngg as this is more helpful than the [...] the office today. 3. We will add [place] 5/325 mg 1 p.o. b.i.d. p.r.n. pain. She is currently not on a opioid medication at this time. She last utilized tramadol in the past at a previous pain clinic and stated she had gastrointestinal issues as in nausea after taking the tramadol. The patient has been advised of the risks and benefits of the [place] medication. OARRS report is reviewed and no [...] her pain. Dictated by Yris Goins APRN [facility] Signed and Approved by: YRIS GOINS 04/04/2019 17:00:00 Normal [facility] CONSULTATIONon 12-20-2018 CONSULTATION CONSULTATION PAIN MANAGEMENT [...] upon her pain. The patient has failed prvz-ear-jdsyzyj antiinflammatories as well as Tylenol in regards [...] progress check. Dictated by Yris Goins APRN [facility] Signed and Approved by: YRIS GOINS 12/27/2018 15:18:00 Normal [facility] CONSULTATIONon 09-20-2018 CONSULTATION CONSULTATION PAIN MANAGEMENT [...] pain are sitting, baclofen 10 mg, and qdji-orr-hknltra medication Tylenol and Motrin. On August 31, [...] her pain. Dictated by Yris Goins APRN [facility] Signed and Approved by: YRIS GOINS 09/20/2018 13:40:00 Normal [facility] 08-17-2018 CONSULTATION CONSULTATION PAIN MANAGEMENT Consultation Date: 6-4-19 CHIEF COMPLAINT: 1. Sacral pain. 2. Low [...] and would like to proceed. cc:Dr. David [facility] Signed and Approved by: DR SELINA WADDELL 08/24/2018 08:28:00 Normal [facility] MG MAMM SCREEN LUIS W CADon 0 07-29-2018 MG MAMM SCREEN LUIS W CAD Patient: SULY HUFFMAN Exam Date: 07/29/2018 : 1960 Gender:F Ordering : MRS. GARFIELD ROJO PA Admission #: [id number] Family : Order #: [id number] CLICK HERE TO VIEW EXAM RADIOLOGY REPORT [...] lung cancer at age 76. LOCATION: [facility] BREAST COMPOSITION: Heterogeneously dense, which [...] Reza MD on 07/29/2018 at 16:46 Normal [facility] Vital Signs Date Time Vital Sign Value Performing Clinician Facility 05-27-2019 15:45-0400 Body Temperature 97.5 [degF] Yogesh [facility], [place] 05-27-2019 15:45-0400 BP Diastolic 70 mm[Hg] [facility] [place] 05-27-2019 15:45-0400 BP Systolic 155 mm[Hg] [facility] [place] 05-27-2019 15:45-0400 Pulse (Heart Rate) 58 /min Yogesh Rothman [facility], [place] 05-27-2019 15:45-0400 Pulse Oximetry 99 % [facility] [place] 05-27-2019 15:45-0400 Respiratory Rate 16 /min [place] 05-26-2019 14:09-0400 Body mass index (BMI) [Ratio] 9 AU/mL [facility] Comment on above: Result Comment: GBM [...] diagnosis. Performed By: #### D AU #### [employer] [address] [place] [address] Coordinate Measuring Machine Operator: Zaki Humphries MD 05-22-2019 21:05-0400 BMI (Body Mass Index) 31.93 kg/m2 Yogesh Rothman [place], [place] 05-22-2019 21:05-0400 Body weight 95.25 [place] 05-22-2019 21:05-0400 Height 172.7 cm [place] Encounters Encounter Date Encounter Type Care Provider Facility Start: 06-26-2023 End: 06-26-2023 ambulatory ELADIA DAVID Not Available Start: 06-08-2023 End: 06-08-2023 ambulatory BART LIZ Not Available Start: 06-05-2023 End: 06-05-2023 ambulatory Bart Liz Facility:[facility] Start: 06-05-2023 End: 06-05-2023 ambulatory Bart Agusto Work Phone: [facility] Work Phone: Start: 06-05-2023 End: 06-05-2023 Departed Referred Bart Agusto Work Phone: [facility] Start: 05-04-2023 End: 05-04-2023 ambulatory BART AGUSTO Not Available Start: 03-26-2023 End: 03-26-2023 ambulatory BART AGUSTO Not Available Start: 02-18-2023 End: 02-19-2023 ambulatory WHIT GODINEZ Not Available Start: 06-10-2019 End: 06-13-2019 Patient encounter procedure [facility] Start: 06-10-2019 End: 06-12-2019 Subsequent hospital visit by physician [facility] Radiology Comment on above: Subarachnoid hemorrh age (HCC) Vasculitis (HCC) Start: 05-22-2019 End: 05-27-2019 Evaluation and management of inpatient OSATRINI MICHAEL [facility] Start: 05-22-2019 End: 05-27-2019 Evaluation and management of inpatient [facility] Comment on above: TIA (transient [...] End: 07-30-2018 Patient encounter procedure ELADIA DAVID Facility: Procedures Date Procedure Procedure Detail Performing Clinician [...] Start: 05-27-2019 Blood count complete automated Cecilio Gage Work Phone: Start: 05-27-2019 INTAKE AND OUTPUT [...] Start: 05-25-2019 Glucose blood reagent strip Cecilio Gage Work Phone: Start: 05-25-2019 Gluc bld gluc [...] src gram/gi emsa stain bct fungi/cell Radha Bloomingdale Work Phone: Start: 05-25-2019 Cell count misc body fluids w/differential count Radha Bloomingdale Work Phone: Start: 05-25-2019 CSF DIFFERENTIAL Radha Bloomingdale Work Phone: Start: 05-25-2019 Glucose body fluid o ther than blood Radha Bloomingdale Work Phone: Start: 05-25-2019 Protein total xcpt refractometry ot src Radha Bloomingdale Work Phone: Start: 05-25-2019 IR LUMBAR PUNCTURE F OR DIAGNOSIS Radha Bloomingdale Work Phone: Start: 05-25-2019 Gluc bld gluc [...] strip Cecilio Gage Work Phone: Start: 05-24-2019 Gluc bld gluc [...] 05-24-2019 Clotting inhibitors protein c activity Radha Bloomingdale Work Phone: Start: 05-24-2019 Clotting inhibitors protein s free Radha Bloomingdale Work Phone: Start: 05-24-2019 Glucose blood reagent [...] Radiologic exam ches t single view Radha Bloomingdale Work Phone: Start: 05-24-2019 Acute hepatitis panel [...] Work Phone: Start: 05-24-2019 Antinuclear antibodies aroldo Lion Work Phone: Start: 05-24-2019 Assay of thyroid stimulating hormone tsh Courtney Lion Work Phone: Start: 05-24-2019 C-reactive protein Jack Lion Work Phone: Start: 05-24-2019 Complement antigen e ach component Courtney Lion Work Phone: Start: 05-24-2019 Flow cytometry cell surf marker techl only 1st Courtney Lion Work Phone: Start: 05-24-2019 Fluorescent nonnfct agt antb screen ea antibody Courtney Lisbon Work Phone: Start: 05-24-2019 GLOMERULAR BASEMENT MEMBRANE (GBM) ANTIBODY IGG [facility] Work Phone: Start: 05-24-2019 HIV REFLEX Courtney [facility] Work Phone: Start: 05-24-2019 Rheumatoid factor quantitative Courtney Lisbon Work Phone: Start: 05-24-2019 Sedimentation rate r [...] AL VTE PROPHYLAXIS OSAMA ZAIDAT Start: 05-22-2019 PEARL DIGGER EVAL AND TREAT OSAM A ZAIDAT Start: [...] IP CONSULT TO END[facility] SCULAR NEUROSURGERY OSAMA RIZWANAT Plan of Treatment Date Care Activity Detail Author Start: 10-03-2024 DTaP/Tdap/Td vaccine (2 - Td) DTaP/Tdap/Td vaccine (2 - Td) [place], [place] Start: 05-22-2022 Diabetes screen Diabetes screen [place], [place] Start: 05-26-2020 Creatinine monitoring Creatinine mon [place], [place] Start: 05-26-2020 Potassium monitoring Potassium monit [place], [place] Start: 05-24-2020 Creatinine monitoring Creatinine mon [place], [place] Start: 05-24-2020 Potassium monitoring Potassium monit [place], [place] Start: 05-22-2020 Lipid screen Lipid screen [place], [place] Start: 08-23-2019 End: 08-23-2019 Office Visit 08/23/2019 Office Visit Neurology Jose Michael MD [address] [facility] [address] [place] [address] [phone] [facility] Start: 07-05-2019 End: 07-05-2019 Office Visit 07/05/2019 Office Visit Neurology Ashleigh Mcmahon, COMPUTER DISCOVERY TEACHER - GUEST EXPERIENCE CAPTAIN [address] [facility] [address] [place], [place] [id number] [facility] Neurology Specialist Start: 06-17-2019 End: 06-17-2019 Office Visit 06/17/2019 Office Visit Neurology Gayathri Maradiaga MD [address] [facility] [address] [place] [address] [phone] [facility] Start: 06-10-2019 End: 05-26-2020 CTA HEAD W CONTRAST CTA HEAD W CONTRAST Imaging Routine Subarachnoid hemorrhage (HCC) Expected: 06/10/2019, Expires: 05/26/2020 [place], [place] Comment on above: Expected: 06/10/2019 , Expires: 05/26/2020 Start: 05-30-2019 Patient encounter procedure Ambulatory Facility: Start: 11-14-2018 Influenza vaccination Flu vaccine (# 1) [place], [place] Start: 2012 Breast cancer screen Breast cancer s creen [place], [place] Start: 2012 Colon cancer screen colonoscopy Colon cancer screen colonoscopy [place], [place] Start: 2012 Shingles Vaccine (1 of 2) Shingles Vaccine (1 of 2) [place], [place] Start: 12-14-1983 Cervical cancer screen Cervical canc er screen [place], [place] Start: 1977 HIV screen HIV screen [place], [place] End: 05-29-2019 Basic metabolic 2000 panel Basic metabolic panel Lab Routine Tomorrow AM for 7 Occurrences starting 05/23/2019 until 05/29/2019, 5 completed [place], [place] Comment on above: Tomorrow AM for 7 Oc currences starting 05/23/2019 until 05/29/2019, 5 completed End: 05-29-2019 CBC CBC Lab Routine Tomorrow AM for 7 Occurrences starting 05/23/2019 until 05/29/2019, [address] [facility], [place] Comment on above: Tomorrow AM for 7 Oc currences starting 05/23/2019 until 05/29/2019, 5 completed End: 05-24-2019 CRYOGLOBULIN CRYOGLOBULIN Lab Routine One Time for 1 Occurrences starting 05/24/2019 until 05/24/[address] [facility], [place] Comment on above: One Time for 1 Occur rences starting 05/24/2019 until 05/24/2019 CRYOGLOBULIN CRYOGLOBULIN Lab Routine 05/24/2019 11:29 AM EDT [facility], [place] End: 05-24-2019 FACTOR 5 LEIDEN FACTOR 5 LEIDEN Lab Routine One Time for 1 Occurrences starting 05/24/2019 until 05/24/[address] [facility] [place] Comment on above: One Time for 1 Occur rences starting 05/24/2019 until 05/24/2019 End: 05-25-2019 Factor V Leiden Mutation Factor V Leiden Mutation Lab Routine Once for 1 Occurrences starting 05/25/2019 until 05/25/[address] [facility] Comment on above: Once for 1 Occurrenc es starting 05/25/2019 until 05/25/2019 Initiate Oxygen Ther apy Protocol [facility] [place] Comment on above: Daily until disconti nued starting 05/22/2019 Daily until disconti nued starting 05/24/2019 IR ANGIOGRAM CAROTID C EREBRAL BILATERAL IR ANGIOGRAM CAROTID C EREBRAL BILATERAL Imaging Routine 05/24/2019 10:21 AM EDT [facility] End: 06-05-2019 Magnesium [Mass/Vol] Magnesium Lab Routine Daily for 14 Occurrences starting 05/23/2019 until 06/05/2019, [address] [facility] Comment on above: Daily for 14 Occurre nces starting 05/23/2019 until 06/05/2019, 5 completed End: 05-25-2019 Miscellaneous lab test #1 Miscellaneous lab test #1 Lab Add-On One Time for 1 Occurrences starting 05/25/2019 until 05/25/[address] [facility] Comment on above: One Time for 1 Occur rences starting 05/25/2019 until 05/25/2019 POCT glucose [facility], [place] Comment on above: 4X Daily (AC & HS) u ntil discontinued starting 05/24/2019 As Needed until disc ontinued starting 05/24/2019 Pulse Oximetry Spot Check Pulse Oximetry Spot Check Respiratory Care Routine As Needed until discontinued starting 05/24/[address] [facility], [place] Comment on above: As Needed until disc ontinued starting 05/24/2019 Pulse oximetry, continuous Pulse oximetry, continuous Respiratory Care Routine Every 4hr until discontinued starting 05/23/[address] 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 FRONTPATH xxxxxxxxxx 2014-Present [phone] [address] [place] [address] xxxxxxxxxx [id number] 1960 Unknown [id number] 2.16.840.1.564325.3.579.2.593 1960 Unknown [id number] 2.16.840.1.509117.3.579.2.593 1960 Unknown [id number] 2.16.840.1.892380.3.579.2.593 1960 Unknown [id number] 2.16.840.1.734108.3.579.2.593 1960 Unknown [id number] 2.16.840.1.655123.3.579.2.593 1960 Unknown [id number] 2.16.840.1.921500.3.579.2.593 1960 Unknown [id number] 2.16.840.1.688511.3.579.2.593 1960 Unknown [id number] 2.16.840.1.088764.3.579.2.593 1960 Unknown [id number] 2.16.840.1.259912.3.579.2.593 1960 Unknown [id number] 2.16.840.1.201708.3.579.2.593 1960 Unknown [id number] 2.16.840.1.186911.3.579.2.593 1960 Unknown [id number] 2.16.840.1.546207.3.579.2.176 1960 Unknown [id number] 2.16.840.1.139380.3.579.2.176 1960 Unknown [id number] 2.16.840.1.066476.3.579.2.176 1960 Unknown [id number] 2.16.840.1.139739.3.579.2.175 1960 Unknown [id number] 2.16.840.1.214972.3.579.2.125 9 1960 Unknown [id number] 2.16.840.1.525207.3.579.2.125 9 1960 Unknown [id number] 2.16.840.1.206617.3.579.2.125 9 1960 Unknown [id number] 2.16.840.1.101484.3.579.2.125 9 1960 Unknown [id number] 2.16.840.1.204312.3.579.2.125 9 1959 Unknown [id number] Unknown [id number] 2.16.840.1.230055.3.579.2.531 Social History Date Type Detail Facility Start: 05-22-2019 End: 01-14-2021 Tobacco smoking status NYIS Never smoker [facility] Start: 05-22-2019 Alcohol intake Current drinke r of alcohol (finding) [facility] Start: 05-22-2019 Alcohol Comment Socially [facility] Sex Assigned At Not on file [facility] Start: 1960 Sex Assigned At Female F [facility] Discharge summary note 11-17-2020 Note Date & Type Note Facility 11-17-2020 Note [facility] Patient: SLUY HUFFMAN [address] [place] [address] MR#: [id number] DISCHARGE SUMMARY : [birth year] Service Date: 11/17/20 [...] Ortho 11/21/20 For Providers: Anil Singer MD [address] [place] [address] CALL OFFICE ON THURSDAY FOR APPOINTMENT TIME ON THURSDAY FOR DRAIN REMOVAL Condition Improved, Stable, Good Disposition Home Electronically Signed eSign Date and Time Hina Richardsonn [facility] Evaluation note Note Date & Type Note Facility Evaluation note No assessment information availa [facility] Work Phone: Summary Purpose Family History No Family History Records Found Relationship Condition Age at Onset Recorded Date/T lily father Heart disease Unknown Malignant neoplasm Unknown Not Specified Hypertension Unknown sister Malignant neoplasm of thyroid gland Unkno wn Advance Directives No Advanced Directives Records FoundDocuments on File Type Date Recorded Patient President Ceo & Founder Expl anation Advance Directives and Living Will Power of Languages And Literature Instructor Latest Code Status on File Code Status Date Activated Date Inactivated Comments Full Code 05/24/2019 12:07 PM Full Code 05/22/2019 8:41 PM 05/24/2019 12:06 PM Documents on File Type Date Recorded Patient President Ceo & Founder Expl anation Advance Directives and Living Will Power of Languages And Literature Instructor Latest Code Status on File Code Status [...] CONTRAST Courtney Lion APRN - CNP [address] [facility] [address] [place] [address] Status Reason Specialty Diagnoses / Procedures Referre d By Contact Referred To Contact Closed Radiology Diagnoses Subarachnoid hemorrhage (HCC) Procedures CTA HEAD W CONTRAST HC CTA automobile sales representativeCourtney Lion APRN - CNP [address] [facility] [address] [place] [address] Discharge Instructions * Discharge Instr - Activity* [...] most local grocery stores, pharmacies, and chain Md7-stores. ? If you have any questions about [...] Agent's Name Healthcare Agent's Phone Number 05/22/19 [phone] No, patient does not have an advance [...] Independent Dressing Independent Toileting Independent Feeding Assisted Bookkeeping Teacher Independent Med Delivery crushed Wound Care Documentation [...] Respiratory Treatments: none Oxygen Therapy: {Therapy; copd oxygen:46644} Ventilator: { CC Vent List:074804434} Rehab Therapies: Speech/Language Therapy Weight Bearing Status/Restrictions: No weight bearing restirctions Other Medical Equipment (for information only, NOT a DME order): {EQUIPMENT:538605656} Other Treatments: Patient's personal belongings (please select all that are sent with patient): None RN SIGNATURE: CASE MANAGEMENT/SOCIAL WORK SECTION Inpatient Status Date: Readmission Risk Assessment Score: Readmission Risk Risk of Unplanned Readmission: 11 Discharging to Facility/ Agency Name: Address: Phone: Fax: Dialysis Facility (if applicable) Name: Address: Dialysis Schedule: Phone: Fax: Airport Operations Officer/Senior Litigation Paralegal signature: {Esignature:302359642} PHYSICIAN SECTION Prognosis: {Prognosis:2060495946} Condition at Discharge: { Patient Condition:715408974} Rehab Potential (if transferring to Rehab): {Prognosis:9878925153} Recommended Labs or Other Treatments After Discharge: Physician Certification: I certify the above information and transfer of Suly Huffman is necessary for the continuing treatment of the diagnosis listed and that she requires {Admit to Appropriate Level of Care:48690} for {GREATER/LESS:497650809} 30 days. Update Admission H&P: {CHP DME Changes in HandP:665425429} PHYSICIAN SIGNATURE: {Esignature:583372205} * Additional Instructions* Courtney Lion, CLIFFORD - GUEST EXPERIENCE CAPTAIN - 05/25/2019 Take your medications as prescribed. [...] be sent through Care Everywhere. * Seizure (Slovak) * Subarachnoid Hemorrhage: General Info (Slovak) documented in this encounter History of Present Illness * Kristin Rankin, PT - 05/26/2019 10:28 AM EDT Physical Therapy Facility/Department: [address] NEURO Daily Treatment Note NAME: Suly [...] 13 KRISTIN RANKIN PT * Sandra Lock, COMPUTER DISCOVERY TEACHER - GUEST EXPERIENCE CAPTAIN - 05/26/2019 7:36 AM EDT Daily Progress [...] depression who presents as a transfer from [facility] for subarachnoid hemorrhage with 3 [...] the day. Loaded with 2g Keppra followed [id number] BID. LTME started. 05/23: Two episodes of [...] mostly in the right anterior circulation, distal SEAFOOD AND SERVICE MEAT MANAGER branches with moderate focal segmental vasospasm. Findings [...] factor in 2015 and was evaluated at [facility], but specialist at that time did not feel it was clinically significant. Rheumatoid factor in 2016 was 120, 123 t his admission. Will continue Keppra 500 mg BID for focal seizure like activity. Solumedrol 1 g Daily, Day / - will see if rheumatology feels patient [...] F (36.6 C) Oral 61 17 05/25/19 195 (!) 153/72 97.6 F (36.4 C) Oral [...] mostly in the right anterior circulation, distal SEAFOOD AND SERVICE MEAT MANAGER branches with moderate focal segmental vasospasm - [...] Neuro Critical Care. Sandra Lock, [facility] - [facility] Neuro Critical Care Pager [phone] 05/26/2019 7:36 AM Associated attestation - Arleth Wilder MD - 05/27/2019 8:50 AM EDT Neuro critical care: CSF studies reviewed and WBCs elevated at 92 and RBC 10,000. Proteins elevated in 90s. Of note, patient reported today visiting [facility] year s ago for elevated RA factor in 120s. No followup , clinical issues or diagnosis since. RA factor elevated again in 120s. Rheumatology consulted to evaluate for suspicion/ differential of VESSEL CAPTAIN vasculitis. CSF sent to [facility] for autoimmune panel testing Continue keppra, [...] TRANSPORT. SAMPLES OBTAINED SENT TO LAB PER BARREL LOADER RN. * Kelly Pérezianna, MANAGER ACTIVITIES - 05/25/2019 11:38 AM EDT Occupational Therapy Facility/Department: [address] Daily Treatment Note NAME: Suly Huffman [...] activity in order to improve ROM and car supplier for ADL tasks, pt sabine Pak understanding. [...] needs. KRISTIN RANKIN PT * Courtney Lion, COMPUTER DISCOVERY TEACHER - GUEST EXPERIENCE CAPTAIN - 05/25/2019 8:05 AM EDT Daily Progress Note Neuro Critical Care Patient Name: Suly Huffman Patient : 1960 Room/Bed: [address] [place] [address] Code Status: FULL Allergies: Allergies Allergen Reactions Augmentin [Amoxicillin-Pot Clavulanate] Diarrhea CHIEF COMPLAINT: Intermittent left sided paresthesias and weakness INTERVAL HISTORY Initial Presentation (Admitted 05/22/19): The patient is a 58 yo female with history of HTN, HLD, and depression who presents as a transfer from [facility] for subarachnoid hemorrhage with 3 [...] the day. Loaded with 2g Keppra followed [id number] BID. LTME started. 05/23: Two episodes of [...] mostly in the right anterior circulation, distal SEAFOOD AND SERVICE MEAT MANAGER branches with moderate focal segmental vasospasm. Findings [...] mostly in the right anterior circulation, distal SEAFOOD AND SERVICE MEAT MANAGER branches with moderate focal segmental vasospasm - [...] Neuro Critical Care. Courtney Lion APRN - [facility] Neuro Critical Care Pager [phone] 05/25/2019 8:05 AM Associated attestation - Arleth [...] Vl Transcranial Doppler Complete Result Date: 05/23/2019 [facility] Vascular Transcranial Procedure Patient Name NATHANAEL Date of Study 05/23/2019 SULY Farmer Date of 1960 Gender Female Age 58 year(s) Race Room Number 0523 Corporate ID [id number] # Patient Acct [id number] # MR # [id number] Skin Lifter Bacon Carole Hooks RVT, DEV Interpreting Gunnar Morgan Physician Referring Referring Physician SANDRA LOCK APRN-GUEST EXPERIENCE CAPTAIN Nurse Practitioner Additional Comments CLASSIFICATION OF VASOSPASM [...] 85.1 Mid AMAIRANI: 83.9 Mid AMAIRANI: 105 SEAFOOD AND SERVICE MEAT MANAGER: 32.3 SEAFOOD AND SERVICE MEAT MANAGER: 22.7 T ICA: 40.4 T ICA: 37.7 [...] mostly in the right anterior circulation, distal SEAFOOD AND SERVICE MEAT MANAGER branches with moderate focal segmental vasospasm - [...] depression who presents as a transfer from [facility] for subarachnoid hemorrhage with 3 [...] the day. Loaded with 2g Keppra followed [id number] BID. LTME started. Last 24h: Two episodes [...] mostly in the right anterior circulation, distal SEAFOOD AND SERVICE MEAT MANAGER branches with moderate focal segmental vasospasm. Findings [...] mostly in the right anterior circulation, distal SEAFOOD AND SERVICE MEAT MANAGER branches with moderate focal segmental vasospasm - [...] Neuro Critical Care. 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 [...] Restraints Initially in place: No AM-PAC Score [facility] Inpatient Mobility Raw Score : 20 (05/23/191126) [...] 8 Minutes Blanka Alas PT * Archie Scott, OT - 05/23/2019 11:19 AM EDT Occupational [...] Ambulation Assistance: Independent Transfer Assistance: Independent Active Guest Experience Manager: Yes 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 Date of Eval: 05/23/2019 Evaluating Therapist: Diamond Barnes Primary Complaint: The patient is a 58 y.o. female presented as a transfer from [facility] after being found tohave subarachnoid [...] Verbal and written education provided. Recommendations: Requires PEARL DIGGER Intervention: No Plan: Goals: Patient/family involved in [...] Group Co-treatment Time In 914 Time Out 0926 Minutes 11 Completed by: Diamond Barnes, Glass Deposition Tender Clinician Cosigned By: Ashlee Grimm M.S.CCC/MANDI 05/23/2019 9:34 AM * Amita Navarro RCP [...] 8:35 AM * Sandra Lock APRN - GUEST EXPERIENCE CAPTAIN - 05/23/2019 8:26 AM EDT Daily Progress Note Neuro Critical Care Patient Name: Suly Huffman Patient : 1960 Room/Bed: 0523/0523-01 Code Status: Full Allergies: Allergies Allergen Reactions Augmentin [Amoxicillin-Pot Clavulanate] Diarrhea CHIEF COMPLAINT: Left sided numbness INTERVAL HISTORY Initial Presentation (Admitted 05/22/19): The patient is a 58 yo female with history of HTN, HLD, and depression who presents as a transfer from [facility] for subarachnoid hemorrhage with 3 [...] please contact Neuro Critical Care. Sandra Lock, COMPUTER DISCOVERY TEACHER - [facility] Neuro Critical Care Pager [phone] 05/23/2019 8:26 AM Associated attestation - Arleth [...] Attending Note I have reviewed the above [facility] resident progress note and I either [...] has loss of fine motor control. Weak car supplier, and able to weakly push/pull against resistance. [...] and content) DATE CREATED AUTHOR 05/24/2019 [facility] DATE CREATED AUTHOR AUTHOR'S ORGANIZ ATION 06/12/2019 [facility] DATE CREATED AUTHOR AUTHOR'S ORGANIZ ATION 06/14/2019 [facility] DATE CREATED AUTHOR AUTHOR'S ORGANIZ ATION 04/29/2021 [facility] DATE CREATED AUTHOR AUTHOR'S ORGANIZ ATION 09/11/2021 [facility] dical Specialist DATE CREATED AUTHOR AUTHOR'S ORGANIZ ATION 06/09/2023 [facility] DATE CREATED AUTHOR AUTHOR'S ORGANIZ ATION 06/27/2023 [facility] dical Specialists [facility] Reason for Visit (unrecogniz ed section and content) Reason Comments Headache Anterior headache Numbness Intermittent LUE and LLE numbness and tingling since Thursday, SAH on CT Status Reason Specialty Diagnoses / Procedures Referre d By Contact Referred To Contact Diagnoses Subarachnoid hemorrhage (HCC) Cecilio Sherman MD [address] [place] [address] [facility] Status Reason Specialty Diagnoses / Procedures Referre d By Contact Referred To Contact Closed Radiology Diagnoses Subarachnoid hemorrhage (HCC) Procedures CTA HEAD W CONTRAST HC CTA automobile sales representativeCourtney Lion, COMPUTER DISCOVERY TEACHER - GUEST EXPERIENCE CAPTAIN [address] [facility] [address] [place] [address] Goals (unrecognized section and content) Goals may be documented in a n alternate sectionGoals may be documented in an alternate section Care Teams (unrecognized sec tion and content) Team Status: Inactive Member Role Status Dates Bart Liz Attending Provider Active Start: [facility] 2023 End: June 05, 2023 FOR RECORDS [...] BE BASED ON THE PRIMARY CLINICAL RECORDS. [facility]. provides no warranty or guarantee of the accuracy or completeness of information in this document.
[2023-07-07] MEDS: REGADENOSON 0.4 MG/5 ML SYRINGE 0.400000000000000022 MG IV (08:25)
--- NOTE | 2023-07-07 09:33 | P.STRESS_ITS ---
Stress Test Stress Test Allergies Allergy/AdvReac Type Severity Reaction Status Date / Time amoxicillin [From Augmentin] Allergy Unknown Diarrhea Verified 06/18/23 09:20 clavulanic acid Allergy Unknown Diarrhea Verified 06/18/23 09:20 [From Augmentin] Requesting physician: NICOLA DAVID Procedure: Lexiscan Cardiolite stress test General Information: Reason for Stress Test: Abrnormal EKG Cardiac History and Risk Factors: Denies any personal history. Father had [place]. Resting 12 - Lead Electrocardiogram: Rate & rhythm: Sinus bradycardia at a rate of 53. [place]: Trend towards left axis deviation T-waves: Inverted in III, biphasic in V3 ST-segments: Downsloping in III PVC is present Comparison from 05/25/2023: Similar appearance, but aVF was more abnormal - similar to III Stress Test: Protocol: Cuong protocol was initiated, but due to lightheadedness, the exercise component was unable to achieve target heart rate and therefore canceled.? Testing was changed to Lexiscan protocol, with injection of 0.4mg Lexiscan IV push followed by Cardiolite. Blood pressure: Initial @ Lexiscan administration: 210/74 - also maximum Rate & rhythm: Patient remained in sinus rhythm during the exercise and recovery portions of the study.? The maximum heart rate was 78, which was 48% of the maximum predicted heart rate. ST-segments & T-waves: While patient was recovering from exercise, the abnormal T-waves and ST-down sloping in III assumed a positive orientation; T-waves inverted in aVL and persisted through the remainder of the testing. Patient response/symptoms: No complaints other than lightheadedness. Interpretation: Non-diagnostic Lexiscan with T-wave and ST segment changes noted in lead III and aVL. No chest pain reported. Cardiolite imaging interpretation will be reported separately. Clinical correlation required.?
== END 2023-07-07 06:15 | disposition home or self-care (01) ==
LOC: NM 06:14
PROVIDERS: PCP Family Medicine; Visit Provider Family Medicine
DX: R94.31 Abnormal electrocardiogram [ECG] [EKG] (principal)
CPT/HCPCS: 78452; 93017; A9500; J2785

== ENCOUNTER 2023-07-20 14:25 | Outpatient (OUT) | payer OTHER, SELFPAY ==
[2023-07-20 15:05] LABS: Basophils Absolute Auto 0.1 10^3/uL (0.0-0.1); Basophils Percent Auto 0.6 % (0.2-2.0); Eosinophils Absolute Auto 0.1 10^3/uL (0.0-0.7); Eosinophils Percent Auto 0.9 % (0.9-7.0); Hematocrit 42.9 % (36.0-48.0); Hemoglobin 14.3 g/dL (12.0-16.0); Immature Granulocytes Abs Auto 0.05 10^3/uL (0.00-0.03); Immature Granulocytes Pct Auto 0.4 % (0.0-0.5); Lymphocytes Absolute Auto 2.5 10^3/uL (1.2-3.8); Lymphocytes Percent Auto 20.4 % (20.5-60.0); Mean Corpuscular HGB Conc 33.3 g/dL (29.9-35.2); Mean Corpuscular Hemoglobin 28.4 pg (26.7-34.0); Mean Corpuscular Volume 85.3 fL (81.0-99.0); Mean Platelet Volume 9.8 fL (9.5-13.5); Monocytes Absolute Auto 0.7 10^3/uL (0.3-0.8); Monocytes Percent Auto 5.8 % (1.7-12.0); Neutrophils Absolute Auto 8.8 10^3/uL (1.4-6.5); Neutrophils Percent Auto 71.9 % (43.0-75.0); Platelet Count 283 10^3/uL (150-450); Red Blood Count 5.03 10^6/uL (4.20-5.40); Red Cell Distribution Width 13.5 % (11.0-15.0); White Blood Count 12.3 10^3/uL (4.0-11.0)
[2023-07-20 15:18] LABS: Alanine Aminotransferase 25 U/L (14-59); Albumin Level 3.6 g/dL (3.4-5.0); Alkaline Phosphatase 76 U/L (46-116); Anion Gap 12.6; Aspartate Amino Transferase 16 U/L (15-37); BUN Creatinine Ratio 17.1; Bilirubin Direct 0.1 mg/dL (0.0-0.2); Bilirubin Total 0.3 mg/dL (0.2-1.0); Calcium 9.5 mg/dL (8.5-10.1); Carbon Dioxide 29.9 mmol/L (21.0-32.0); Chloride 99 mmol/L (98-107); Estimated GFR (African America 54 (>=60); Estimated GFR (Non-African Ame 45 (>=60); Globulin 3.7 g/dL; Glucose 108 mg/dL (74-106); Potassium 3.5 mmol/L (3.5-5.1); Sodium 138 mmol/L (136-145); Total Protein 7.3 g/dL (6.4-8.2)
[2023-07-20 15:56] LABS: INR 1.03; Partial Thromboplastin Time 27.4 sec (22.3-36.2); Prothrombin Time 10.9 sec (9.0-11.6)
== END 2023-07-20 14:26 | disposition home or self-care (01) ==
LOC: PST 14:26
PROVIDERS: PCP Family Medicine; Visit Provider Obstetrics & Gynecology
DX: Z01.812 Encounter for preprocedural laboratory examination (principal); N92.0 Excessive and frequent menstruation with regular cycle; R10.2 Pelvic and perineal pain; N94.6 Dysmenorrhea, unspecified; N94.10 Unspecified dyspareunia
CPT/HCPCS: 36415; 80048; 80076; 85610; 85730; 86850; 86900; 86901

== ENCOUNTER 2023-07-22 06:15 | Day surgery (SDC) | payer OTHER, SELFPAY ==
[2023-06-18 09:35] VITALS: BP 108/62; PULSE 57; TEMP 36.3; O2SAT 97; BMI 33.0
[2023-07-20 14:45] VITALS: BP 118/78; PULSE 59; TEMP 36.3; O2SAT 97; BMI 32.4
[2023-07-22] VITALS (11 sets, daily range): BP systolic 102–126; BP diastolic 52–69; PULSE 58–90; TEMP 35.8–37.2; O2SAT 90–96
--- OUTSIDE RECORDS SUMMARY | 2023-07-22 06:18 | XMS_ITS | CCD ---
Author Organization [facility] Care Team Providers Care Documentation Supervisor Name Role Phone WADDELL, SELINA S Admitting [...] Primary Care Unavailable CLINKER, YRIS Consulting Unavailable WADEDLL, SELINA S Admitting Unavailable WADDELL, SELINA S [...] ELADIA BRAN Primary Care Un available NICOLASA MORGAN Referring Unavailable ELADIA BRAN Primary Care Un [...] Care Provi archana Bart Liz Attending Provider [phone] Bart Liz Attending Unavailable Bart Liz Admitting Unavailable BART LIZ Attending Unavailable BART LIZ Attending Unavailable BART LIZ Attending Unavailable ELADIA DAVID Attending Unavailable MELISSA MUJICA Attending Unavailable WHIT GODINEZ Attending Unavailable Allergies Allergy Classification Reported Allergen(s) Allergy Type Date of Onset Reaction(s) Facility (2 sources) Amoxicillin / Clavulanate Drug Allergy 7 [facility] (4 sources) Amoxicillin-Pot Clavulanate Propensity to adverse reactions to drug 0 [place], [place] (3 sources) Amoxicillin; Translations: [amoxicillin] Drug Allergy 1 [facility] [place] (3 sources) Clavulanate; Translations: [clavulanic acid] Drug Allergy 1 [facility] [place] Medications Current Medications Medication Drug Class(es) Dates [...] take 1 tablet by mouth once daily Triamterene-[place] chlorothiazid Active 1 TAB PO Daily January [...] by mouth every six hours Hydrocodone-Acetam inophen ([place]) 5-325 mg Tablet Discontinued 1 TAB PO Q6H January 11, 2021 12:00am November 1st, 2021 1:53pm benzonatate 100 mg oral capsule [...] 05-22-2019 Chronic Other aftercare (1 source) Other long term care phlebotomist (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; Translations: [OTH ALF CURRENT DRUG THERAPY] Onset: 05-24-2019 Episodic Other [...] Test Name Value Interpretation Reference Range Facility [facility] 06-04-2023 L Specimen: [id number] Received: 06/05/23 Status: SALVATORE King Num: [id number] Spec Type: Surgical Subm Dr: Bart Liz Tissues: A Endometrium - Curettings (EMC) Procedures: HE/2, Gross/Micro L4 Age/ Patient Sex Location Account Attending Physician Suly Huffman 62/F LABELL [id number] Bart Liz SPEC NUM: [id number] RECD: 06/05/23 STATUS: SALVATORE KING NUM: [id number] VICENTE: 06/04/[address]: Bart Liz ENTERED: [...] in one cassette labeled A1. CPT Codes 80685 ---- ---- Specimen: [id number] Received: 06/05/23 Status: SALVATORE King Num: [id number] Spec Type: Surgical Subm Dr: Bart Liz Tissues: A Endometrium - Curettings (EMC) Procedures: Temi RAY/Cliff L4 ---- Patient: Suly Huffman [id number] (Continued) ---- Signed (signature on file) Shea Jovel MD 06/08/23 1447 [facility] SCREENING MAMMOGRAM W/BOSSMAN, BILATERAL*on 09-10-2021 SCREENING MAMMOGRAM [...] VERY IMPORTANT TO YOUR HEALTH. THE CURRENT [place] [employer] GUIDELINES RECOMMENDS ANNUAL MAMMOGRAPHY BEGINNING AT AGE 42 THIS FACILITY USES A REMINDER SYSTEM TO ENSURE ALL PATIENTS RECEIVE REMINDER NOTIFICATIONS AT THE APPROPRIATE TIME BASED ON THE RECOMMENDATIONS OF THIS EXAM. Report reported and signed by Salo Pacheco on 09/10/2021 1532 Normal [facility] Specialist Discharge CCD Assessmenton 0 11-19-2020 Discharge CCD Assessment [facility] Patient: SULY HUFFMAN [address] [place], [place] [id number] MR#: [id number] DISCHARGE CCD ASSESSMENT : 64 Service Date: [...] prescribed. Electronically Signed eSign Date and Time daikavinHina varghese Residen Normal [facility] Anesthesia Noteon 11-17-2020 Anesthesia Note [facility] Patient: SULY HUFFMAN [address] [place] [id number] MR#: [id number] ANESTHESIA NOTE : Service Date: 11/17/20 1223 [...] Llamas 11/17/20 1224 Garland Harris MD Normal [facility] BASIC MET PANELon 11-17-2020 Anion gap [Moles/Vol] 12 mmol/L Normal 6-18 [facility] Comment on above: Performed By: #### L 500.85301, L500.15679 ####Test performed at: [address] [address] Calcium [Mass/Vol] 8.2 mg/dL Low 8.5-10.1 [facility] Comment on above: Performed By: #### L 500.69007, L500.99701 ####Test performed at: [address] [address] Chloride [Moles/Vol] 100 mmol/L Normal 98-107 [facility] Comment on above: Performed By: #### L 500.22409, L500.91407 ####Test performed at: [address] [address] CO2 [Moles/Vol] 27 mmol/L Normal 21-32 [facility] Comment on above: Performed By: #### L 500.65720, L500.59120 ####Test performed at: [address] [address] Creatinine [Mass/Vol] 0.909 mg/dL Normal 0.550-1.020 [facility] Comment on above: Performed By: #### L 500.92442, L500.10433 ####Test performed at: [address] [address] Glucose [Mass/Vol] 190 mg/dL High 70-99 [facility] Comment on above: Result Comment: Fast ing GLUCOSE reference range has been updated per (ADA) [place] Diabetes Association's recommendation. 06/08/2018 Performed By: #### L 500.54906, L500.78106 ####Test performed at: [address] [address] OSM 289 mosm/kg Normal 270-300 [facility] Comment on above: Performed By: #### L 500.37452, L500.11146 ####Test performed at: [address] [address] Potassium [Moles/Vol] 3.2 mmol/L Critically low 3.5-5.1 [facility] Comment on above: Result Comment: Crit ical Result(s) Called at: 09:36:29 on 11/17/2020 by: Diana Fontaine and read back by: trinh pandey Performed By: #### L 500.88991, L500.52964 ####Test performed at: [address] [address] Sodium [Moles/Vol] 136 mmol/L Normal 136-145 [facility] Comment on above: Performed By: #### L 500.82231, L500.10853 ####Test performed at: [address] [address] Urea nitrogen [Mass/Vol] 17 mg/dL Normal 7-18 [facility] Comment on above: Performed By: #### L 500.89998, L500.63335 ####Test performed at: [address] [address] GFR ESTIMATEon 11-17-2020 IF AMER > 60 Normal > 60 [facility] Comment on above: Result Comment: eGFR (Estimated GFR) Units of measure:mL/min/1.73 meters sq. *CALCULATION REVISED 01/02/2015;IDMS-traceable MDRD equation eGFR is derived from the reexpressed MDRD Study equation using the following parameters: serum creatinine, age, gender and race. An eGFR<60 mL/min/1.73m2 for >3 months is consistent with chronic kidney disease. Refer to KDOQI guidelines for clinical interpretation. Performed By: #### L 500.41218, L500.27129 ####Test performed at: [place] [address] IF non-AFR AMER > 60 Normal > 60 [facility] Comment on above: Performed By: #### L 500.13504, L500.42726 ####Test performed at: [place] [address] HGB AND HCTon 11-17-2020 Hematocrit (Bld) [Volume fraction] 39.2 % Normal 36.0-48.0 [facility] Comment on above: Performed By: #### L 200.86144 ####Test performed at: [place] [address] Hemoglobin (Bld) [Mass/Vol] 13.4 g/dL Normal 12.0-15.0 [facility] Comment on above: Performed By: #### L 200.28892 ####Test performed at: [place] [address] Internal Med Progress Noteon 11-17-2020 Internal Med Progress Note [facility] Patient: SULY HUFFMAN [address] [place] [address] MR#: [id number] PROGRESS NOTE - Internal Medicine : 64 Service Date: 11/17/20 0556 Assessment/Plan-Final Inspector al Med Be sure to note changes Be sure to note changes Electronically Signed eSign Date and Time Hina Richardson Residen Normal [facility] Internal Med Progress Note [facility] Patient: SULY HUFFMAN [address] [place] [address] MR#: [id number] PROGRESS NOTE - Internal Medicine : 64 [...] eight Weight PREADMISSION TESTING WGT easurement ethod Assessment/Plan-Final Inspector al Med Problem List 1. S/P laminectomy [...] CHRISTIE * Labs: wnl # hx of CHPAIS * Lexapro 20 mg daily po # DVT ppx * ICPDs * Ambulation Be sure to note changes Be sure to note changes DVT Prophylaxis ICPD, ambulation *Attending Attestation Attending Attestation Attending Attestation patient stable for dc All pertinent elements of history and physical exam were confirmed by me. Agree with above documentation. The [resident's, PA's, PICK UP DRIVER's] assessment and plan reflect my input. Discussed with documenting provider and patient. Plan is as outlined above. Electronically Signed eSign Date and Time Hina Richardson Massiel Res Hause-Wardega, Katarzyn a MD 11/17/20 1125 Normal [facility] OT Therapy Recommendationson 11-17-2020 OT Therapy Recommendations [facility] Patient: SULY HUFFMAN [address] [place] [address] MR#: [id number] OT THERAPY RECOMMENDATIONS : 64 Service Date: 11/17/20 1037 Therapy Recommendations Therapy Recommendations Recommendations Occupational therapy eval complete. Continue acute OT as per POC. Recommend d/c home with family assist. See OT eval for details. Electronically Signed eSign Date and Time Brynn Suero OT Rich 11/17/20 1038 Tammi Ham OT Normal [facility] PT Therapy Recommendationson 11-17-2020 PT Therapy Recommendations [facility] Patient: SULY HUFFMAN [address] [address] MR#: [id number] PT THERAPY RECOMMENDATIONS : 64 Service Date: 11/17/20 1123 Therapy Recommendations Therapy Recommendations Recommendations PT eval complete. No further acute PT needs. Recommend d/c home when medically cleared. Electronically Signed eSign Date and Time Bettie Sorensen PT 11/17/20 1123 Normal [facility] z OT Inpatient Evaluationon 11-17-2020 z OT Inpatient Evaluation [facility] Patient: SULY HUFFMAN [address] [address] MR#: [id number] OT INPATIENT EVALUATION : 64 Inpatient OT HPI Date of Service 11/17/20 Time In: 915 Time Out: 938 Total Treatment Time (Mins) 23 Visit Reason LUMBAR STENOSIS Surgery Type/Date L4-L5 decompressive laminectomy 11/16/20 Referral Date 11/17/20 Tx Diagnosis: LUMBAGO Insurance Name [facility] Course Pt is a 59 y/o F [...] ADL Equipment Elev. Toilet Seat w Arms, Botany Laboratory Assistant, Shower Chair Bedroom Location 1st Floor Bathroom [...] Gait Trainin (more content not included)... Normal [facility] z PT Inpatient Discharge Not efraín 11-17-2020 z PT Inpatient Discharge Note [facility] Patient: SULY HUFFMAN [address] [place] [id number] MR#: [id number] PT INPATIENT DISCHARGE NOTE : 64 Service [...] Time Bettie Sorensen PT 11/17/20 1436 Normal [facility] z PT Inpatient Evaluationon 11-17-2020 z PT Inpatient Evaluation [facility] Patient: SULY HUFFMAN [address] [place] [id number] MR#: [id number] PT INPATIENT EVALUATION : 64 Service Date: 11/17/20 1146 Inpatient PT HPI Date of Service 11/17/20 Time In: 914 Time Out: 0940 Total Treatment Time (Mins) 25 Room Number 617 Visit Reason LUMBAR STENOSIS Surgery Type: Luis L4-5 decompressive lami Surgery Date: 11/16/20 Referral Date 11/16/20 Tx Diagnosis: LOW BACK PAIN Insurance Name [facility] Course 59 y.o female at [facility] for above sx d/t lumbar stenosis. [...] Time Bettie Sorensen PT 11/17/20 1444 Normal [facility] H & Bj 11-16-2020 H & P [facility] Patient: SULY HUFFMAN [address] [place] [address] MR#: [id number] HISTORY and PHYSICAL : Service Date: 11/16/20 [...] Result Date Time Pulse Ox 100 11/16 112 B/P 169/88 11/16 112 Temp 37.1 11/16 112 Pulse 62 11/16 1121 Resp 18 11/16 112 Appearance Appearance Appears well, Awake, Alert, No [...] Non-tender Ext (more content not included)... Normal [facility] OPERATIVE REPORTon OPERATIVE REPORT This is a preliminar y report only. This report will be final only after practitioner review and authentication has occurred. NAME: SULY HUFFMAN MR#: [id number] SURGEON: Anil Singer MD DATE OF SURGERY: [...] L3-4 DICTATION ENDS HERE ANIL SINGER MD Madi/[facility]/[id number] E/S: Electronically Signed [facility] PT NAME: SULY HUFFMAN MR#: [id number] [address] [place] [address] ACCT: [id number] : 64 OPERATIVE REPORT Normal [facility] OPERATIVE REPORT NAME: SULY HUFFMAN MR#: [id number] SURGEON: Anil Singer MD DATE OF SURGERY: [...] paraspinal muscles were injected with RECKs. [facility], [facility] PT NAME: SULY HUFFMAN MR#: [id number] [address] [place] [address] ACCT: [id number] : 64 OPERATIVE REPORT subcutaneous tissues, and skin were closed in the usual manner. Dressings were applied. The patient was woken, taken to recovery room in excellent condition. There were no complications. MD EUFEMIA ROUSSEAU/LUCAS/[id number] E/S: Anil Singer MD 12/10/20 0937 Electronically Signed [facility] PT NAME: SULY HUFFMAN MR#: [id number] [address] [place], [place] [address] ACCT: [id number] : 64 OPERATIVE REPORT Normal [facility] Primary Residenton Primary Resident [facility] Pt Name: SULY HUFFMAN MR#: [id number] [address] [place] [address] ACCT: [id number] [place] [id number] : 64 Service Date: 11/16/202024 Primary Resident/Call Primary Resident: Miki Richardson After Hours Call: [phone] Red Team Electronically Signed eSign Date and Time Jean Claude Dalal [place] Resident 11/17/20 1151 Normal [facility] LUMBAR SPINE 2 OR 3 VIEWSon 11-15-2020 LUMBAR SPINE 2 OR 3 VIEWS STUDY: LUMBAR SPINE 2 OR 3 VIEWS; ; 11/16/2020 4:33 pm INDICATION: B/L L4-5 DECOMPRESSION LAMINECTOMY . COMPARISON: No imaging. ACCESSION NUMBER(S): [id number] ORDERING CLINICIAN: Anil Singer FINDINGS: Fluoroscopy time: 5 seconds. 2 intraoperative fluoroscopic still frame images of the lumbar spine were submitted. Images demonstrate localization at the L4-L5 interspace with probe/surgical component. IMPRESSION: Surgical localization at the L4-L5 interspace. Please see operative report regarding procedural details. Normal [facility] CORONAVIRUSon 11-13-2020 SARS-CoV-2 (COVID-19) RNA FERNY+probe Ql [...] on the FDA website: https://www.fda.gov/Me dicalDevices/Safety/ EmergencySituations/ o697496.htm COVID-19 Negative for COVID-19 (SARS-CoV-2 RNA) Normal [facility] Comment on above: Order Comment: CBN: YESCampus: MAINCOVID Testing: PRE-OP/PROCEDURE SCREENComment: GE at Spec VICENTE 59Report age at specimen VICENTE? YFirst test: UNKNOWNEmployed in Healthcare: NOSymptomatic as defined by CDC: NOHospitalized for COVID-19? NOICU: NOResident in a [facility] Care Setting: NOOrder Date: 11/13/20: Not Performed By: #### M 400.82610 ####Test performed at: [address] [address] COMP META PANELon 11-07-2020 Albumin [Mass/Vol] 3.9 g/dL Normal 3.4-5.0 [facility] Comment on above: Performed By: #### L 500.60483, L500.14332 #### Test performed at: [address] [address] ALK PHOS TOTAL 61 U/L Normal 45-117 [facility] Comment on above: Performed By: #### L 500.67174, L500.13232 #### Test performed at: [address] [address] ALT [Catalytic activity/Vol] 131 U/L High 13-61 [facility] Comment on above: Performed By: #### L 500.59005, L500.15397 #### Test performed at: [place] [address] AST [Catalytic activity/Vol] 126 U/L High 15-37 [facility] Comment on above: Performed By: #### L 500.01375, L500.12365 #### Test performed at: [address] [address] BILI TOTAL 0.4 mg/dL Normal 0.2-1.0 [facility] Comment on above: Performed By: #### L 500.96739, L500.27950 #### Test performed at: [address] [address] Calcium [Mass/Vol] 9.1 mg/dL Normal 8.5-10.1 [facility] Comment on above: Performed By: #### L 500.54429, L500.90079 #### Test performed at: [address] [address] Chloride [Moles/Vol] 102 mmol/L Normal 98-107 [facility] Comment on above: Performed By: #### L 500.90698, L500.87749 #### Test performed at: [address] [address] CO2 [Moles/Vol] 28 mmol/L Normal 21-32 [facility] Comment on above: Performed By: #### L 500.21730, L500.79933 #### Test performed at: [address] [address] Creatinine [Mass/Vol] 0.755 mg/dL Normal 0.550-1.020 [facility] Comment on above: Performed By: #### L 500.92987, L500.49123 #### Test performed at: [address] [address] Glucose [Mass/Vol] 75 mg/dL Normal 70-99 [facility] Comment on above: Result Comment: Fast ing GLUCOSE reference range has been updated per (ADA) [place] Diabetes Association's recommendation. 06/08/2018 Performed By: #### L 500.05398, L500.22122 #### Test performed at: [address] [address] Potassium [Moles/Vol] 3.6 mmol/L Normal 3.5-5.1 [facility] Comment on above: Performed By: #### L 500.79916, L500.59807 #### Test performed at: [address] [address] Protein [Mass/Vol] 7.1 g/dL Normal 6.4-8.2 [facility] Comment on above: Performed By: #### L 500.05217, L500.56452 #### Test performed at: [address] [address] Sodium [Moles/Vol] 137 mmol/L Normal 136-145 [facility] Comment on above: Performed By: #### L 500.09071, L500.21738 #### Test performed at: [address] [address] Urea nitrogen [Mass/Vol] 18 mg/dL Normal 7-18 [facility] Comment on above: Performed By: #### L 500.12775, L500.32759 #### Test performed at: [address] [address] GFR ESTIMATEon 11-07-2020 IF AMER > 60 Normal > 60 [facility] Comment on above: Result Comment: eGFR (Estimated GFR) Units of measure:mL/min/1.73 meters sq. *CALCULATION REVISED 01/02/2015;IDMS-traceable MDRD equation eGFR is derived from the reexpressed MDRD Study equation using the following parameters: serum creatinine, age, gender and race. An eGFR<60 mL/min/1.73m2 for >3 months is consistent with chronic kidney disease. Refer to KDOQI guidelines for clinical interpretation. Performed By: #### L 500.73361, L500.14236 #### Test performed at: [address] [address] IF non-AFR AMER > 60 Normal > 60 [facility] Comment on above: Performed By: #### L 500.99542, L500.18682 #### Test performed at: [address] [address] CBC W/DIFFon 11-06-2020 BASO ABS 0.1 K/uL Normal 0.0-0.2 [facility] Comment on above: Performed By: #### L 200.62299 #### Test performed at: [address] [address] Basophils/100 WBC (Bld) 0.9 % Normal [facility] Comment on above: Performed By: #### L 200.12779 #### Test performed at: [address] [address] EOS ABS 0.2 K/uL Normal 0.0-0.5 [facility] Comment on above: Performed By: #### L 200.43034 #### Test performed at: [address] [address] Eosinophils/100 WBC (Bld) 2.0 % Normal [facility] Comment on above: Performed By: #### L 200.13624 #### Test performed at: [address] [address] IG % 0.3 % Normal [facility] Comment on above: Performed By: #### L 200.58681 #### Test performed at: [address] [address] IG ABS 0.03 K/uL Normal 0-0.05 [facility] Comment on above: Performed By: #### L 200.68229 #### Test performed at: [address] [address] Lymphocytes (Bld) [#/Vol] 3.3 10*3/uL Normal 1.2-3.5 [facility] Comment on above: Performed By: #### L 200.49519 #### Test performed at: [address] [address] Lymphocytes/100 WBC (Bld) 36.1 % Normal [facility] Comment on above: Performed By: #### L 200.96829 #### Test performed at: [address] [address] MONO ABS 0.7 K/uL Normal 0.0-1.0 [facility] Comment on above: Performed By: #### L 200.59243 #### Test performed at: [address] [address] Monocytes/100 WBC (Bld) 7.9 % Normal [facility] Comment on above: Performed By: #### L 200.10399 #### Test performed at: [address] [address] NEUTROPHIL ABS 4.8 K/uL Normal 1.4-6.6 [facility] Comment on above: Performed By: #### L 200.38464 #### Test performed at: [address] [address] Neutrophils/100 WBC (Bld) 52.8 % Normal [facility] Comment on above: Performed By: #### L 200.71127 #### Test performed at: [address] [address] Erythrocyte distribution width (RBC) [Ratio] 14.1 % Normal 11.5-14.5 [facility] Comment on above: Performed By: #### L 200.80149 #### Test performed at: [address] [address] Hematocrit (Bld) [Volume fraction] 45.7 % Normal 36.0-48.0 [facility] Comment on above: Performed By: #### L 200.29717 #### Test performed at: [address] [address] Hemoglobin (Bld) [Mass/Vol] 14.8 g/dL Normal 12.0-15.0 [facility] Comment on above: Performed By: #### L 200.61501 #### Test performed at: [place] [address] MCH (RBC) [Entitic mass] 30.3 pg Normal 25.4-34.6 [facility] Comment on above: Performed By: #### L 200.94078 #### Test performed at: [address] [address] MCHC (RBC) [Mass/Vol] 32.4 g/dL Normal 31.5-36.5 [facility] Comment on above: Performed By: #### L 200.12793 #### Test performed at: [address] [address] MCV (RBC) [Entitic vol] 93.5 fL Normal 79.0-98.0 [facility] Comment on above: Performed By: #### L 200.28278 #### Test performed at: [address] [address] NRBC # 0.000 K/uL Normal 0-0.012 [facility] Comment on above: Performed By: #### L 200.41823 #### Test performed at: [address] [address] NRBC % 0.0 /100 WBC Normal 0-0.2 [facility] Comment on above: Performed By: #### L 200.39756 #### Test performed at: [address] [address] Platelet mean volume (Bld) [Entitic vol] 10.3 fL Normal 8.7-12.4 [facility] Comment on above: Performed By: #### L 200.17915 #### Test performed at: [address] [address] Platelets (Bld) [#/Vol] 219 10*3/uL Normal 140-440 [facility] Comment on above: Performed By: #### L 200.47770 #### Test performed at: [address] [address] RBC (Bld) [#/Vol] 4.89 10*6/uL Normal 3.5-5.5 [facility] Comment on above: Performed By: #### L 200.58916 #### Test performed at: [address] [address] WBC (Bld) [#/Vol] 9.1 10*3/uL Normal 3.9-11.0 [facility] Comment on above: Performed By: #### L 200.91604 #### Test performed at: [address] [address] CHEST PA/AP & LATERALon 10-15 CHEST PA/AP & LATERAL STUDY: CHEST PA/AP LATERAL; 11/06/2020 12:57 pm INDICATION: SOB/PAT. COMPARISON: None. ACCESSION NUMBER(S): [id number] ORDERING CLINICIAN: Ricky Adame FINDINGS: The lungs are clear without pleural effusion. Mild cardiomegaly. Otherwise unremarkable mediastinum, pedro, and pulmonary vasculature. IMPRESSION: No active disease in the chest. Normal [facility] CONSULTATION REPORTon 2020 CONSULTATION REPORT NAME: SULY HUFFMAN MR#: [id number] PRODUCTION MANUFACTURING WORKER: Ricky Adame MD DATE OF CONSULTATION: 11/06/2020 [...] is cleared for anesthesia with acceptable risk. [facility] PT NAME: SULY HUFFMAN MR#: [id number] [address] [place] [address] ACCT: [id number] : 64 CONSULTATION Thank you for the courtesy of this consultation. RICKY ADAME MD MS/ANABELL/[id number] E/S: Ricky Adame MD 11/06/20 1746 Electronically Signed [facility] PT NAME: SULY HUFFMAN MR#: [id number] [address] [place] [address] ACCT: [id number] : 64 CONSULTATION Normal [facility] OPERATIVE REPORTon OPERATIVE REPORT NAME: SULY HUFFMAN MR#: [id number] SURGEON: Anil Singer MD DATE OF SURGERY: [...] condition. There were no complications. MD EUFEMIA ROUSSEAU/ANABELL/[id number] E/S: Anil Singer MD 08/09/20 4167 Electronically Signed [facility] PT NAME: SULY HUFFMAN MR#: [id number] [address] [place] [address] ACCT: [id number] : 64 OPERATIVE REPORT Normal [facility] CORONAVIRUSon 07-20-2020 SARS-CoV-2 (COVID-19) RNA FERNY+probe Ql [...] on the FDA website: https://www.fda.gov/Me dicalDevices/Safety/ EmergencySituations/uc j386441.htm COVID-19 Negative for COVID-19 (SARS-CoV-2 RNA) Normal [facility] Comment on above: Order Comment: CBN: YES [place]: [facility]IN COVID Testing: PRE-OP/PROCEDURE SCREEN Comment: 07/24 AGE at Spec VICENTE 59 Report age at specimen VICENTE? Y First test: UNKNOWN Employed in Healthcare: NO Symptomatic as defined by CDC: NO Hospitalized for COVID-19? NO ICU: NO Resident in a Congregated Care Setting: NO Order Date: 07/20/20 : Not Performed By: #### M [id number] #### Test performed at: [place] [address] MRI LUMBAR SP WO CONTRASTon 07-04-2020 MRI LUMBAR SP WO CONTRAST STUDY: MRI LUMBAR SP WO CONTRAST; 07/04/2020 10:30 am INDICATION: BACK PAIN. COMPARISON: None. ACCESSION NUMBER(S): [id number] ORDERING CLINICIAN: Anil Singer TECHNIQUE: Sagittal T1, [...] Multifocal degenerative changes as described above Normal [facility] LUMB SP COMP W FLEX/EXT 6 VW Son 06-20-2020 LUMB SP COMP W FLEX/EXT 6 VWS STUDY: LUMB SP COMP W FLEX/EXT 6 VWS ; 06/20/2020 11:35 am INDICATION: PAIN. COMPARISON: None. ACCESSION NUMBER(S): [id number] ORDERING CLINICIAN: Anil Singer FINDINGS: Mild dextroscoliosis centered at L3-4. No acute fracture or subluxation of the lumbar spine. Moderate multilevel degenerative disc height loss most pronounced at L3-4. Scattered endplate osteophytes. Lower lumbar predominant facet arthropathy. No spondylolisthesis. No pars defects identified. No instability on flexion or extension. IMPRESSION: Degenerative changes and scoliosis of the lumbar spine without instability. Normal [facility] SACRUM/COCCYXon 06-20-2020 SACRUM/COCCYX STUDY: SACRUM/COCCYX; 06/20/2020 10:10 am INDICATION: PAIN. COMPARISON: None. ACCESSION NUMBER(S): [id number] ORDERING CLINICIAN: Anil Singer FINDINGS: Degenerative changes of the sacroiliac joints. No definite erosions. No definite acute fracture identified. IMPRESSION: Degenerative changes of the sacroiliac joints. Normal [facility] IR ANGIOGRAM CAROTID CEREBRA L BILATERALon 06-14-2019 [...] 70 minutes. Neurointerventionalist : Jose Michael MD [place]: MD Nicolasa Beard MD Comparison: None Fluoroscopy [...] a single-wall needle technique, and a 5 Ukrainian intravascular sheath was placed within the right common femoral artery, establishing arterial access. A 5 Ukrainian multipurpose catheter was then advanced over a [...] focal segmental narrowing. There is a right LICENSED PRACTICAL VOCATIONAL NURSE noted. Otherwise no other evidence of cerebral [...] and distal branches. There is a left LICENSED PRACTICAL VOCATIONAL NURSE noted. Inspection of the remaining left internal [...] and venous phase images were unremarkable. 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 2. 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 Vasculitis cannot be ruled out. 3. 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 Dr. Gayathri Maradiaga dictated this invasive procedure. [...] Jose Michael MD 06/14/19 Final result Normal [facility] CTA HEAD W CONTRASTon 2019 CTA [...] Dawna Meade MD 06/10/19 Final result Normal [facility] No intracranial flow-limiting stenosis or aneurysm. [facility], [place] EXAMINATION: CTA OF THE HEAD WITH CONTRAST [...] fluid collection. The varner-white differentiation is maintained. [place], [place], pn Incoming Radiant Results From [employer] - 06/10/2019 4:49 PM EDT EXAMINATION: CTA [...] IMPRESSION: No intracranial flow-limiting stenosis or aneurysm. [place] XR CHEST (2 VW)on 06-10-2019 XR CHEST (2 VW) EXAMINATION: TWO XRAY VIEWS OF THE CHEST 06/10/2019 11:09 am COMPARISON: Chest 05/24/2019 HISTORY: ORDERING SYSTEM PROVIDED HISTORY: Vasculitis ([facility]) TECHNOLOGIST PROVIDED HISTORY: Reason for Exam: vasculitis [...] Uzair Jon MD 06/10/19 Final result Normal [facility] XR CHEST STANDARD (2 VW)on 0 06-10-2019 Focal subsegmental atelectasis or focal pneumonia mid to lateral lower left lung. Chest radiograph series appears otherwise unremarkable. [place] EXAMINATION: TWO XRA Y VIEWS OF THE CHEST 06/10/2019 11:09 am COMPARISON: Chest 05/24/2019 HISTORY: ORDERING SYSTEM PROVIDED HISTORY: Vasculitis ([facility]) TECHNOLOGIST PROVIDED HISTORY: Reason for Exam: vasculitis Acuity: Acute Type of Exam: Initial FINDINGS: The cardiomediastinal and hilar silhouettes appear unremarkable. Focal density partially obscures mid to lateral aspect of the left hemidiaphragm on frontal view. The right lung appears clear. No pleural effusion evident. No pneumothorax is seen. No acute osseous abnormality is identified. [facility] [place] Juancarlos, Mhpn Incoming Radiant Results From [employer] - 06/10/2019 11:47 AM EDT EXAMINATION: TWO XRAY VIEWS OF THE CHEST 06/10/2019 11:09 am COMPARISON: Chest 05/24/2019 HISTORY: ORDERING SYSTEM PROVIDED HISTORY: Vasculitis ([facility]) TECHNOLOGIST PROVIDED HISTORY: Reason for Exam: vasculitis [...] lung. Chest radiograph series appears otherwise unremarkable. [facility] 05-30-2019 Cryoglobulins 0 mg/dL Normal 0-10 [facility] Comment on above: Performed By: #### C DP, BMP, LIPR, MG, GLYHGB #### [employer] [facility] [place] [address] Relay Checker: Zaki Humphries MD Basic Metabolic Profon 05-26 (cont.) Normal [facility] Comment on above: Result Comment: Aver age GFR for 50-59 years old: 93 mL/min/1.73sq m Chronic Kidney Disease: <60 mL/min/1.73sq m Kidney failure: <15 mL/min/1.73sq m eGFR calculated using average adult body mass. Additional eGFR calculator available at: http://www.[employer].9+/multiple_crcl_2012.htm Performed By: #### C DP, BMP, LIPR, MG, GLYHGB #### [address] [address] Relay Checker: Zaki Humphries MD Anion gap [Moles/Vol] 12 mmol/L Normal 9-17 [facility] Comment on above: Performed By: #### C DP, BMP, LIPR, MG, GLYHGB #### [address] [address] Relay Checker: Zaki Humphries MD Calcium [Mass/Vol] 9.0 mg/dL Normal 8.6-10.4 [facility] Comment on above: Performed By: #### C DP, BMP, LIPR, MG, GLYHGB #### [address] [address] Relay Checker: Zaki Humphries MD Chloride [Moles/Vol] 102 mmol/L Normal 98-107 [facility] Comment on above: Performed By: #### C DP, BMP, LIPR, MG, GLYHGB #### [address] [address] Relay Checker: Zaki Humphries MD CO2 [Moles/Vol] 23 mmol/L Normal 20-31 [facility] Comment on above: Performed By: #### C DP, BMP, LIPR, MG, GLYHGB #### [address] [address] Relay Checker: Zaki Humphries MD Creatinine [Mass/Vol] 0.59 mg/dL Normal 0.50-0.90 [facility] Comment on above: Performed By: #### C DP, BMP, LIPR, MG, GLYHGB #### [address] [address] Relay Checker: Zaki Humphries MD GFR, Amer >60 Normal >60 [facility] Comment on above: Performed By: #### C DP, BMP, LIPR, MG, GLYHGB #### [address] [address] Relay Checker: Zaki Humphries MD GFR,non Amer >60 Normal >60 [facility] Comment on above: Performed By: #### C DP, BMP, LIPR, MG, GLYHGB #### [address] [address] Relay Checker: Zaki Humphries MD Glucose [Mass/Vol] 217 mg/dL High 70-99 [facility] Comment on above: Performed By: #### C DP, BMP, LIPR, MG, GLYHGB #### [address] [address] Relay Checker: Zaki Humphries MD Potassium [Moles/Vol] 3.9 mmol/L Normal 3.7-5.3 [facility] Comment on above: Performed By: #### C DP, BMP, LIPR, MG, GLYHGB #### [address] [address] Relay Checker: Zaki Humphries MD Sodium [Moles/Vol] 137 mmol/L Normal 135-144 [facility] Comment on above: Performed By: #### C DP, BMP, LIPR, MG, GLYHGB #### [address] [address] Relay Checker: Zaki Humphries MD Urea nitrogen [Mass/Vol] 20 mg/dL Normal 6-20 [facility] Comment on above: Performed By: #### C DP, BMP, LIPR, MG, GLYHGB #### [address] [address] Relay Checker: Zaki Humphries MD BUN/CRE Ratio NOT REPORTED Normal 9-20 [facility] Comment on above: Performed By: #### C DP, BMP, LIPR, MG, GLYHGB #### [facility] [address] [place] [address], [place] [id number] Relay Checker: Zaki Humphries MD Staging: NOT REPORTED Normal [facility] Comment on above: Performed By: #### C DP, BMP, LIPR, MG, GLYHGB #### [facility] [address] [place], [place] [id number] Relay Checker: Zaki Humphries MD Basic metabolic panelon 05-14 Anion gap [Moles/Vol] 12 mmol/L 9 - 17 mmol/L [place] Bun/Cre Ratio NOT REPORTED [place] Calcium [Mass/Vol] 9.0 mg/dL 8.6 - 10. 4 mg/dL [place] Chloride [Moles/Vol] 102 mmol/L 98 - 10 7 mmol/L [place] CO2 [Moles/Vol] 23 mmol/L 20 - 31 mmol/L [place] Creatinine [Mass/Vol] 0.59 mg/dL 0.5 - 0.9 mg/dL [place] GFR >60 >60 mL/min [place] GFR Non- >60 >60 mL/min [place] GFR/1.73 sq M predicted among non-blacks MDRD (S/P/Bld) [Vol rate/Area] [place] Comment on above: Average GFR for 50-5 9 years old: 93 mL/min/1.73sq m Chronic Kidney Disease: <60 mL/min/1.73sq m Kidney failure: <15 mL/min/1.73sq m eGFR calculated using average adult body mass. Additional eGFR calculator available at: http://www.[employer].com/multiple_crcl_2012.htm GFR/1.73 sq M predicted among non-blacks MDRD (S/P/Bld) [Vol rate/Area] NOT REPORTED [place] Glucose [Mass/Vol] 217 mg/dL High 70 - 99 mg/dL [place] Potassium [Moles/Vol] 3.9 mmol/L 3.7 - 5.3 mmol/L [place] Sodium [Moles/Vol] 137 mmol/L 135 - 144 mmol/L [place] Urea nitrogen [Mass/Vol] 20 mg/dL 6 - 20 mg/dL [place] CBCon 05-27-2019 Erythrocyte distribution width (RBC) [Ratio] 13.4 % Normal 11.8-14.4 [facility] Comment on above: Performed By: #### C DP, BMP, LIPR, MG, GLYHGB #### [facility] [address] [place] [address] Relay Checker: Zaki Humphries MD Hematocrit (Bld) [Volume fraction] 40.2 % Normal 36.3-47.1 [facility] Comment on above: Performed By: #### C DP, BMP, LIPR, MG, GLYHGB #### [address] [address] Relay Checker: Zaki Humphries MD Hemoglobin (Bld) [Mass/Vol] 13.3 g/dL Normal 11.9-15.1 [facility] Comment on above: Performed By: #### C DP, BMP, LIPR, MG, GLYHGB #### [facility] [address] [place] [address] Relay Checker: Zaki Humphries MD MCH (RBC) [Entitic mass] 30.0 pg Normal 25.2-33.5 [facility] Comment on above: Performed By: #### C DP, BMP, LIPR, MG, GLYHGB #### [facility] [address] [place] [address] Relay Checker: Zaki Humphries MD MCHC (RBC) [Mass/Vol] 33.1 g/dL Normal 28.4-34.8 [facility] Comment on above: Performed By: #### C DP, BMP, LIPR, MG, GLYHGB #### [facility] [address] [place] [address] Relay Checker: Zaki Humphries MD MCV (RBC) [Entitic vol] 90.7 fL Normal 82.6-102.9 [facility] Comment on above: Performed By: #### C DP, BMP, LIPR, MG, GLYHGB #### [address] [address] Relay Checker: Zaki Humphries MD NRBC Automated 0.0 per 100 WBC Normal 0.0 [facility] Comment on above: Performed By: #### C DP, BMP, LIPR, MG, GLYHGB #### [address] [address] Relay Checker: Zaki Humphries MD Platelet mean volume (Bld) [Entitic vol] 10.5 fL Normal 8.1-13.5 [facility] Comment on above: Performed By: #### C DP, BMP, LIPR, MG, GLYHGB #### [address] [address] Relay Checker: Zaki Humphries MD Platelets (Bld) [#/Vol] 254 10*3/uL Normal 138-453 [facility] Comment on above: Performed By: #### C DP, BMP, LIPR, MG, GLYHGB #### [address] [address] Relay Checker: Zaki Humphries MD RBC (Bld) [#/Vol] 4.43 10*6/uL Normal 3.95-5.11 [facility] Comment on above: Performed By: #### C DP, BMP, LIPR, MG, GLYHGB #### [address] [address] Relay Checker: Zaki Humphries MD WBC (Bld) [#/Vol] 14.2 10*3/uL High 3.5-11.3 [facility] Comment on above: Performed By: #### C DP, BMP, LIPR, MG, GLYHGB #### [place] [address] [place] [id number] Relay Checker: Zaki Humphries MD Erythrocyte distribution width (RBC) [Ratio] 13.4 % 11.8 - 14.4 % [place] Hematocrit (Bld) [Volume fraction] 40.2 % 36.3 - 47.1 % [place] Hemoglobin (Bld) [Mass/Vol] 13.3 g/dL 11.9 - 15.1 g/dL [place] Interpretation and review of laboratory results Abnormal [place] MCH (RBC) [Entitic mass] 30.0 pg 25.2 - 33.5 pg [place] MCHC (RBC) [Mass/Vol] 33.1 g/dL 28.4 - 34.8 g/dL [place] MCV (RBC) [Entitic vol] 90.7 fL 82.6 - 102.9 fL [place] Platelet mean volume (Bld) [Entitic vol] 10.5 fL 8.1 - 13.5 fL [place] Platelets (Bld) [#/Vol] 254 10*3/uL [place] RBC (Bld) [#/Vol] 4.43 10*6/uL 3.95 - 5.1 1 m/uL [place] WBC (Bld) [#/Vol] 0.0 10*3/uL 0.0 per 10 0 WBC [place] WBC (Bld) [#/Vol] 14.2 10*3/uL High [place] CSF DIFFERENTIALon 0 Bands, CSF % [place] Baso, CSF % [place] Blasts, CSF % [place] Eosinophils, CSF % [place], [place] Fluid Diff Comment [place] Lymphs, CSF 92 % [place] Comment on above: The reference range and other method performance specifications have not been established for this body fluid. The test result must be integrated into the clinical context for interpretation. Metamyelocyte, CSF % [facility], [place] Gates/Macrophage, CSF % [facility], [place] Myelocyte, CSF % [facility], [place] Neutrophils, CSF 1 % [place] Comment on above: The reference range and other method performance specifications have not been established for this body fluid. The test result must be integrated into the clinical context for interpretation. Other Cells, Fluid MONOCYTES % [place] Comment on above: The reference range and other method performance specifications have not been established for this body fluid. The test result must be integrated into the clinical context for interpretation. CSF Differentialon 0 Other Cells MONOCYTES Normal [facility] Comment on above: Result Comment: The reference range and other method performance specifications have not been established for this body fluid. The test result must be integrated into the clinical context for interpretation. Performed By: #### C DP, BMP, LIPR, MG, GLYHGB #### [facility] [address] [place] [address] Relay Checker: Zaki Humphries MD HIV REFLEXon 05-27-2019 HIV Ag/Ab NONREACTIVE NONREACTIVE [place] Comment on above: No laboratory eviden ce of HIV infection. If acute HIV infection is suspected, consider testing for HIV-1 RNA. HIV Reflexon 05-27-2019 HIV Ag/Ab NONREACTIVE Normal NR [facility] Comment on above: Result Comment: No l aboratory evidence of HIV infection. If acute HIV infection is suspected, consider testing for HIV-1 RNA. Performed By: #### C DP, BMP, LIPR, MG, GLYHGB #### [facility] [address] [place] [address] Relay Checker: Zaki Humphries MD Magnesiumon 05-27-2019 Magnesium [Mass/Vol] 2.7 mg/dL High 1.6-2.6 [facility] Comment on above: Performed By: #### C DP, BMP, LIPR, MG, GLYHGB #### [facility] [address] [place] [address] Relay Checker: Zaki Humphries MD Magnesium [Mass/Vol] 2.7 mg/dL High 1.6 - 2 .6 mg/dL [place] Otheron 05-27-2019 Interpretation and review of laboratory results Abnormal [place] POC Glucose Fingerstickon Glucose [Mass/Vol] 230 mg/dL High 65 - 105 mg/dL [place] Interpretation and review of laboratory results Abnormal [place] Glucose [Mass/Vol] 225 mg/dL High 65 - 105 mg/dL [place] Interpretation and review of laboratory results Abnormal [place] Glucose [Mass/Vol] 216 mg/dL High 65 - 105 mg/dL [place] Interpretation and review of laboratory results Abnormal [place] PROTEIN S FUNCTIONALon 05-26 Interpretation and review of laboratory results Abnormal [place] Protein [Mass/Vol] g/dL High 59 - 130 % [place] Comment on above: Patients on oral [...] 020 Protein [Mass/Vol] 121 % Normal >80 [facility] Comment on above: Result Comment: Patients [...] C DP, BMP, LIPR, MG, GLYHGB #### [employer] [address] [place] [address] Relay Checker: Zaki Humphries MD Protein C Functionalon 05-26 Protein [Mass/Vol] 121 % >80 [place] Comment on above: Patients on oral [...] Activityon 020 Protein [Mass/Vol] g/dL High 59-130 [facility] Comment on above: Result Comment: Patients [...] C DP, BMP, LIPR, MG, GLYHGB #### [place] [address] Relay Checker: Zaki Humphries MD ANTI-NEUTROPHILIC CYTOPLASMI C ANTIBODYon 05-26-2019 ANCA Myeloperoxidase 8 AU/mL <100 [place] Comment on above: Reference Ranges (MPO and PR3): <100 AU/mL Negative 100-120 AU/mL Equivocal >120 AU/mL Positive Protein [Mass/Vol] 10 AU/mL <100 [place] Comment on above: Reference Ranges (MPO and PR3): <100 AU/mL Negative 100-120 AU/mL Equivocal >120 AU/mL Positive ANTI-PHOSPHOLIPID ABon 05-25 Anticardiolipin IgA 1.1 <12 APU [place] Comment on above: Reference Range: 12 - 15 Equivocal >15 Positive Anticardiolipin IgG 2.5 <20 GPU [place] Comment on above: Reference Range: 20.0 - 29.9 Low Positive 30.0 - 79.9 Moderate Positive >79.9 High Positive Cardiolipin Ab IgM 1.7 <20 MPU [place] Comment on above: Reference Range: 20.0 - 29.9 Low Positive 30.0 - 79.9 Moderate Positive >79.9 High Positive Anti-Phospholipid Abon 05-25 Antiphospholipid IgA 1.1 APU Normal <12 [facility] Comment on above: Result Comment: Reference Range: 12 - 15 Equivocal >15 Positive Performed By: #### D AU #### [address] [address] Relay Checker: Zaki Humphries MD Antiphospholipid IgG 2.5 GPU Normal <20 [facility] Comment on above: Result Comment: Reference Range: 20.0 - 29.9 Low Positive 30.0 - 79.9 Moderate Positive >79.9 High Positive Performed By: #### D AU #### [place] [address] Relay Checker: Zaki Humphries MD Antiphospholipid IgM 1.7 MPU Normal <20 [facility] Comment on above: Result Comment: Reference Range: 20.0 - 29.9 Low Positive 30.0 - 79.9 Moderate Positive >79.9 High Positive Performed By: #### D AU #### [place] [address] Relay Checker: Zaki Humphries MD Basic Metabolic Profon 05-25 (cont.) Normal [facility] Comment on above: Result Comment: Aver age GFR for 50-59 years old: 93 mL/min/1.73sq m Chronic Kidney Disease: <60 mL/min/1.73sq m Kidney failure: <15 mL/min/1.73sq m eGFR calculated using average adult body mass. Additional eGFR calculator available at: http://www.[employer].9+/multiple_crcl_2012.htm Performed By: #### C DP, BMP, LIPR, MG, GLYHGB #### [place] [address] Relay Checker: Zaki Humphries MD Anion gap [Moles/Vol] 12 mmol/L Normal 9-17 [facility] Comment on above: Performed By: #### C DP, BMP, LIPR, MG, GLYHGB #### [address] [address] Relay Checker: Zaki Humphries MD Calcium [Mass/Vol] 9.2 mg/dL Normal 8.6-10.4 [facility] Comment on above: Performed By: #### C DP, BMP, LIPR, MG, GLYHGB #### [address] [address] Relay Checker: Zaki Humphries MD Chloride [Moles/Vol] 103 mmol/L Normal 98-107 [facility] Comment on above: Performed By: #### C DP, BMP, LIPR, MG, GLYHGB #### [address] [address] Relay Checker: Zaki Humphries MD CO2 [Moles/Vol] 21 mmol/L Normal 20-31 [facility] Comment on above: Performed By: #### C DP, BMP, LIPR, MG, GLYHGB #### [address] [address] Relay Checker: Zaki Humphries MD Creatinine [Mass/Vol] 0.57 mg/dL Normal 0.50-0.90 [facility] Comment on above: Performed By: #### C DP, BMP, LIPR, MG, GLYHGB #### [address] [address] Relay Checker: Zaki Humphries MD GFR, Amer >60 Normal >60 [facility] Comment on above: Performed By: #### C DP, BMP, LIPR, MG, GLYHGB #### [address] [address] Relay Checker: Zaki Humphries MD GFR,non Amer >60 Normal >60 [facility] Comment on above: Performed By: #### C DP, BMP, LIPR, MG, GLYHGB #### [address] [address] Relay Checker: Zaki Humphries MD Glucose [Mass/Vol] 203 mg/dL High 70-99 [facility] Comment on above: Performed By: #### C DP, BMP, LIPR, MG, GLYHGB #### [facility] [address] [place] [address] Relay Checker: Zaki Humphries MD Potassium [Moles/Vol] 3.9 mmol/L Normal 3.7-5.3 [facility] Comment on above: Performed By: #### C DP, BMP, LIPR, MG, GLYHGB #### [facility] [address] [place] [address] Relay Checker: Zaki Humphries MD Sodium [Moles/Vol] 136 mmol/L Normal 135-144 [facility] Comment on above: Performed By: #### C DP, BMP, LIPR, MG, GLYHGB #### [facility] [address] [place] [address] Relay Checker: Zaki Humphries MD Urea nitrogen [Mass/Vol] 17 mg/dL Normal 6-20 [facility] Comment on above: Performed By: #### C DP, BMP, LIPR, MG, GLYHGB #### [facility] [address] [place] [address] Relay Checker: Zaki Humphries MD BUN/CRE Ratio NOT REPORTED Normal -20 [facility] Comment on above: Performed By: #### C DP, BMP, LIPR, MG, GLYHGB #### [facility] [address] [place] [address] Relay Checker: Zaki Humphries MD Staging: NOT REPORTED Normal [facility] Comment on above: Performed By: #### C DP, BMP, LIPR, MG, GLYHGB #### [facility] [address] [place] [address] Relay Checker: Zaki Humphries MD Basic metabolic panelon 05-14 Anion gap [Moles/Vol] 12 mmol/L 9 - 17 mmol/L [place] Bun/Cre Ratio NOT REPORTED [place] Calcium [Mass/Vol] 9.2 mg/dL 8.6 - 10. 4 mg/dL [place] Chloride [Moles/Vol] 103 mmol/L 98 - 10 7 mmol/L [place] CO2 [Moles/Vol] 21 mmol/L 20 - 31 mmol/L [place] Creatinine [Mass/Vol] 0.57 mg/dL 0.5 - 0.9 mg/dL [place] GFR >60 >60 mL/min [place] GFR Non- >60 >60 mL/min [place] GFR/1.73 sq M predicted among non-blacks MDRD (S/P/Bld) [Vol rate/Area] NOT REPORTED [place] GFR/1.73 sq M predicted among non-blacks MDRD (S/P/Bld) [Vol rate/Area] [place] Comment on above: Average GFR for 50-5 9 years old: 93 mL/min/1.73sq m Chronic Kidney Disease: <60 mL/min/1.73sq m Kidney failure: <15 mL/min/1.73sq m eGFR calculated using average adult body mass. Additional eGFR calculator available at: http://www.[employer].9+/multiple_crcl_2012.htm Glucose [Mass/Vol] 203 mg/dL High 70 - 99 mg/dL [place] Interpretation and review of laboratory results Abnormal [place] Potassium [Moles/Vol] 3.9 mmol/L 3.7 - 5.3 mmol/L [place] Sodium [Moles/Vol] 136 mmol/L 135 - 144 mmol/L [place] Urea nitrogen [Mass/Vol] 17 mg/dL 6 - 20 mg/dL [place] CBCon 05-26-2019 Erythrocyte distribution width (RBC) [Ratio] 13.7 % Normal 11.8-14.4 [facility] Comment on above: Performed By: #### C DP, BMP, LIPR, MG, GLYHGB #### [facility] [address] [place] [address] Relay Checker: Zaki Humphries MD Hematocrit (Bld) [Volume fraction] 39.0 % Normal 36.3-47.1 [facility] Comment on above: Performed By: #### C DP, BMP, LIPR, MG, GLYHGB #### [facility] [address] [place] [address] Relay Checker: Zaki Humphries MD Hemoglobin (Bld) [Mass/Vol] 13.0 g/dL Normal 11.9-15.1 [facility] Comment on above: Performed By: #### C DP, BMP, LIPR, MG, GLYHGB #### [facility] [address] [place] [address] Relay Checker: Zaki Humphries MD MCH (RBC) [Entitic mass] 30.5 pg Normal 25.2-33.5 [facility] Comment on above: Performed By: #### C DP, BMP, LIPR, MG, GLYHGB #### [facility] [address] [place] [address] Relay Checker: Zaki Humphries MD MCHC (RBC) [Mass/Vol] 33.3 g/dL Normal 28.4-34.8 [facility] Comment on above: Performed By: #### C DP, BMP, LIPR, MG, GLYHGB #### [place] [address] Relay Checker: Zaki Humphries MD MCV (RBC) [Entitic vol] 91.5 fL Normal 82.6-102.9 [facility] Comment on above: Performed By: #### C DP, BMP, LIPR, MG, GLYHGB #### [address] [address] Relay Checker: Zaki Humphries MD NRBC Automated 0.0 per 100 WBC Normal 0.0 [facility] Comment on above: Performed By: #### C DP, BMP, LIPR, MG, GLYHGB #### [address] [address] Relay Checker: Zaki Humphries MD Platelet mean volume (Bld) [Entitic vol] 9.9 fL Normal 8.1-13.5 [facility] Comment on above: Performed By: #### C DP, BMP, LIPR, MG, GLYHGB #### [address] [address] Relay Checker: Zaki Humphries MD Platelets (Bld) [#/Vol] 234 10*3/uL Normal 138-453 [facility] Comment on above: Performed By: #### C DP, BMP, LIPR, MG, GLYHGB #### [address] [address] Relay Checker: Zaki Humphries MD RBC (Bld) [#/Vol] 4.26 10*6/uL Normal 3.95-5.11 [facility] Comment on above: Performed By: #### C DP, BMP, LIPR, MG, GLYHGB #### [address] [address] Relay Checker: Zaki Humphries MD WBC (Bld) [#/Vol] 18.3 10*3/uL High 3.5-11.3 [facility] Comment on above: Performed By: #### C DP, BMP, LIPR, MG, GLYHGB #### [address] [address] Relay Checker: Zaki Humphries MD Erythrocyte distribution width (RBC) [Ratio] 13.7 % 11.8 - 14.4 % [place] Hematocrit (Bld) [Volume fraction] 39.0 % 36.3 - 47.1 % [place] Hemoglobin (Bld) [Mass/Vol] 13.0 g/dL 11.9 - 15.1 g/dL [place] Interpretation and review of laboratory results Abnormal [place] MCH (RBC) [Entitic mass] 30.5 pg 25.2 - 33.5 pg [place] MCHC (RBC) [Mass/Vol] 33.3 g/dL 28.4 - 34.8 g/dL [place] MCV (RBC) [Entitic vol] 91.5 fL 82.6 - 102.9 fL [place] Platelet mean volume (Bld) [Entitic vol] 9.9 fL 8.1 - 13.5 fL [place] Platelets (Bld) [#/Vol] 234 10*3/uL [place] RBC (Bld) [#/Vol] 4.26 10*6/uL 3.95 - 5.1 1 m/uL [place] WBC (Bld) [#/Vol] 18.3 10*3/uL High [place] WBC (Bld) [#/Vol] 0.0 10*3/uL 0.0 per 10 0 WBC [place] GLOMERULAR BASEMENT MEMBRANE (GBM) ANTIBODY IGGon 05-26-2019 GBM Ab, IgG 9 AU/mL <100 [place] Comment on above: GBM Reference Range: [...] 05-26-2019 Magnesium [Mass/Vol] 2.6 mg/dL Normal 1.6-2.6 [facility] Comment on above: Performed By: #### C DP, BMP, LIPR, MG, GLYHGB #### [facility] [address] [place] [address] [phone] Relay Checker: Zaki Humphries MD Magnesium [Mass/Vol] 2.6 mg/dL 1.6 - 2 .6 mg/dL [place] Neutrophil Cytopl Abon 05-25 MPO-ANCA 8 AU/mL Normal <100 [facility] Comment on above: Result Comment: Reference Ranges (MPO and PR3): <100 AU/mL Negative 100-120 AU/mL Equivocal >120 AU/mL Positive Performed By: #### D AU #### [address] [phone] Relay Checker: Zaki Humphries MD PR3-ANCA 10 AU/mL Normal <100 [facility] Comment on above: Result Comment: Reference Ranges (MPO and PR3): <100 AU/mL Negative 100-120 AU/mL Equivocal >120 AU/mL Positive Performed By: #### D AU #### [address] [phone] Relay Checker: Zaki Humphries MD POC Glucose Fingerstickon Glucose [Mass/Vol] 278 mg/dL High 65 - 105 mg/dL [place] Interpretation and review of laboratory results Abnormal [place] Glucose [Mass/Vol] 227 mg/dL High 65 - 105 mg/dL [place] Interpretation and review of laboratory results Abnormal [place] Glucose [Mass/Vol] 179 mg/dL High 65 - 105 mg/dL [place] Interpretation and review of laboratory results Abnormal [place] Glucose [Mass/Vol] 186 mg/dL High 65 - 105 mg/dL [place] Interpretation and review of laboratory results Abnormal [place] AROLDO SCREEN WITH REFLEXon Nuclear Ab IF (S) [Titer] Negative NEGATIVE [place] Comment on above: This test was run on the [employer] AROLDO test system. The system provides ten test results (HEp-2NA, dsDNA, SSA, SSB, Sm, SERVICE OPERATOR, Scl-70, Sabine-1, Centromere and Histone analytes) from a single patient sample. A negative AROLDO screen indicates that the specimen was negative for all ten markers. AROLDO Screenon 05-25-2019 AROLDO Screen Negative Normal NEG [facility] Comment on above: Result Comment: This test was run on the [employer] AROLDO test system. The system provides ten test results (HEp-2NA, dsDNA, SSA, SSB, Sm, SERVICE OPERATOR, Scl-70, Sabine-1, Centromere and Histone analytes) from a single patient sample. A negative AROLDO screen indicates that the specimen was negative for all ten markers. Performed By: #### D AU #### [employer] [address] [place] [address] Relay Checker: Zaki Humphries MD Basic Metabolic Profon 05-24 (cont.) Normal [facility] Comment on above: Result Comment: Aver age GFR for 50-59 years old: 93 mL/min/1.73sq m Chronic Kidney Disease: <60 mL/min/1.73sq m Kidney failure: <15 mL/min/1.73sq m eGFR calculated using average adult body mass. Additional eGFR calculator available at: http://www.[employer]erraSky/multiple_crcl_2012.htm Performed By: #### C DP, BMP, LIPR, MG, GLYHGB #### [employer] [address] [place], [place] [id number] Relay Checker: Zaki Humphries MD Anion gap [Moles/Vol] 12 mmol/L Normal 9-17 [facility] Comment on above: Performed By: #### C DP, BMP, LIPR, MG, GLYHGB #### [employer] [address] [place], [place] [id number] Relay Checker: Zaki Humphries MD Calcium [Mass/Vol] 8.9 mg/dL Normal 8.6-10.4 [facility] Comment on above: Performed By: #### C DP, BMP, LIPR, MG, GLYHGB #### [employer] [address] [place] [address] Relay Checker: Zaki Humphries MD Chloride [Moles/Vol] 109 mmol/L High 98-107 [facility] Comment on above: Performed By: #### C DP, BMP, LIPR, MG, GLYHGB #### [address] [address] Relay Checker: Zaki Humphries MD CO2 [Moles/Vol] 17 mmol/L Low 20-31 [facility] Comment on above: Performed By: #### C DP, BMP, LIPR, MG, GLYHGB #### [facility] [address] [place] [address] Relay Checker: Zaki Humphries MD Creatinine [Mass/Vol] 0.54 mg/dL Normal 0.50-0.90 [facility] Comment on above: Performed By: #### C DP, BMP, LIPR, MG, GLYHGB #### [address] [address] Relay Checker: Zaki Humphries MD GFR, Amer >60 Normal >60 [facility] Comment on above: Performed By: #### C DP, BMP, LIPR, MG, GLYHGB #### [address] [address] Relay Checker: Zaki Humphries MD GFR,non Amer >60 Normal >60 [facility] Comment on above: Performed By: #### C DP, BMP, LIPR, MG, GLYHGB #### [facility] [address] [place] [address] Relay Checker: Zaki Humphries MD Glucose [Mass/Vol] 183 mg/dL High 70-99 [facility] Comment on above: Performed By: #### C DP, BMP, LIPR, MG, GLYHGB #### [address] [address] Relay Checker: Zaki Humphries MD Potassium [Moles/Vol] 4.3 mmol/L Normal 3.7-5.3 [facility] Comment on above: Result Comment: SPEC IMEN SLIGHTLY HEMOLYZED, RESULTS MAY BE ADVERSELY AFFECTED. Performed By: #### C DP, BMP, LIPR, MG, GLYHGB #### [address] [address] Relay Checker: Zaki Humphries MD Sodium [Moles/Vol] 138 mmol/L Normal 135-144 [facility] Comment on above: Performed By: #### C DP, BMP, LIPR, MG, GLYHGB #### [address] [address] Relay Checker: Zaki Humphries MD Urea nitrogen [Mass/Vol] 17 mg/dL Normal 6-20 [facility] Comment on above: Performed By: #### C DP, BMP, LIPR, MG, GLYHGB #### [address] [address] Relay Checker: Zaki Humphries MD BUN/CRE Ratio NOT REPORTED Normal -20 [facility] Comment on above: Performed By: #### C DP, BMP, LIPR, MG, GLYHGB #### [address] [address] Relay Checker: Zaki Humphries MD Staging: NOT REPORTED Normal [facility] Comment on above: Performed By: #### C DP, BMP, LIPR, MG, GLYHGB #### [address] [address] Relay Checker: Zaki Humphries MD Basic metabolic panelon - Anion gap [Moles/Vol] 12 mmol/L 9 - 17 mmol/L [place] Bun/Cre Ratio NOT REPORTED [place] Calcium [Mass/Vol] 8.9 mg/dL 8.6 - 10. 4 mg/dL [place] Chloride [Moles/Vol] 109 mmol/L High 98 - 10 7 mmol/L [place] CO2 [Moles/Vol] 17 mmol/L Low 20 - 31 mmol/L [place] Creatinine [Mass/Vol] 0.54 mg/dL 0.5 - 0.9 mg/dL [place] GFR >60 >60 mL/min [place] GFR Non- >60 >60 mL/min [place] GFR/1.73 sq M predicted among non-blacks MDRD (S/P/Bld) [Vol rate/Area] [place] Comment on above: Average GFR for 50-5 9 years old: 93 mL/min/1.73sq m Chronic Kidney Disease: <60 mL/min/1.73sq m Kidney failure: <15 mL/min/1.73sq m eGFR calculated using average adult body mass. Additional eGFR calculator available at: http://www.[employer]erraSky/multiple_crcl_2012.htm GFR/1.73 sq M predicted among non-blacks MDRD (S/P/Bld) [Vol rate/Area] NOT REPORTED [place] Glucose [Mass/Vol] 183 mg/dL High 70 - 99 mg/dL [place] Interpretation and review of laboratory results Abnormal [place] Potassium [Moles/Vol] 4.3 mmol/L 3.7 - 5.3 mmol/L [place] Comment on above: SPECIMEN SLIGHTLY HE MOLYZED, RESULTS MAY BE ADVERSELY AFFECTED. Sodium [Moles/Vol] 138 mmol/L 135 - 144 mmol/L [place] Urea nitrogen [Mass/Vol] 17 mg/dL 6 - 20 mg/dL [place] CBCon 05-25-2019 Erythrocyte distribution width (RBC) [Ratio] 13.2 % Normal 11.8-14.4 [facility] Comment on above: Performed By: #### C DP, BMP, LIPR, MG, GLYHGB #### [address] [address] Relay Checker: Zaki Humphries MD Hematocrit (Bld) [Volume fraction] 42.5 % Normal 36.3-47.1 [facility] Comment on above: Performed By: #### C DP, BMP, LIPR, MG, GLYHGB #### [address] [address] Relay Checker: Zaki Humphries MD Hemoglobin (Bld) [Mass/Vol] 13.7 g/dL Normal 11.9-15.1 [facility] Comment on above: Performed By: #### C DP, BMP, LIPR, MG, GLYHGB #### [address] [address] Relay Checker: Zaki Humphries MD MCH (RBC) [Entitic mass] 29.8 pg Normal 25.2-33.5 [facility] Comment on above: Performed By: #### C DP, BMP, LIPR, MG, GLYHGB #### [address] [address] Relay Checker: Zaki Humphries MD MCHC (RBC) [Mass/Vol] 32.2 g/dL Normal 28.4-34.8 [facility] Comment on above: Performed By: #### C DP, BMP, LIPR, MG, GLYHGB #### [address] [address] Relay Checker: Zaki Humphries MD MCV (RBC) [Entitic vol] 92.4 fL Normal 82.6-102.9 [facility] Comment on above: Performed By: #### C DP, BMP, LIPR, MG, GLYHGB #### [address] [address] Relay Checker: Zaki Humphries MD NRBC Automated 0.0 per 100 WBC Normal 0.0 [facility] Comment on above: Performed By: #### C DP, BMP, LIPR, MG, GLYHGB #### [facility] [address] [place] [address] Relay Checker: Zaki Humphries MD Platelet mean volume (Bld) [Entitic vol] 10.1 fL Normal 8.1-13.5 [facility] Comment on above: Performed By: #### C DP, BMP, LIPR, MG, GLYHGB #### [facility] [address] [place] [address] Relay Checker: Zaki Humphries MD Platelets (Bld) [#/Vol] 288 10*3/uL Normal 138-453 [facility] Comment on above: Performed By: #### C DP, BMP, LIPR, MG, GLYHGB #### [place] [address] Relay Checker: Zaki Humphries MD RBC (Bld) [#/Vol] 4.60 10*6/uL Normal 3.95-5.11 [facility] Comment on above: Performed By: #### C DP, BMP, LIPR, MG, GLYHGB #### [facility] [address] [place] [address] Relay Checker: Zaki Humphries MD WBC (Bld) [#/Vol] 14.5 10*3/uL High 3.5-11.3 [facility] Comment on above: Performed By: #### C DP, BMP, LIPR, MG, GLYHGB #### [facility] [address] [place] [address] Relay Checker: Zaki Humphries MD Erythrocyte distribution width (RBC) [Ratio] 13.2 % 11.8 - 14.4 % [place] Hematocrit (Bld) [Volume fraction] 42.5 % 36.3 - 47.1 % [place] Hemoglobin (Bld) [Mass/Vol] 13.7 g/dL 11.9 - 15.1 g/dL [place] Interpretation and review of laboratory results Abnormal [place] MCH (RBC) [Entitic mass] 29.8 pg 25.2 - 33.5 pg [place] MCHC (RBC) [Mass/Vol] 32.2 g/dL 28.4 - 34.8 g/dL [place] MCV (RBC) [Entitic vol] 92.4 fL 82.6 - 102.9 fL [place] Platelet mean volume (Bld) [Entitic vol] 10.1 fL 8.1 - 13.5 fL [place] Platelets (Bld) [#/Vol] 288 10*3/uL [place] RBC (Bld) [#/Vol] 4.60 10*6/uL 3.95 - 5.1 1 m/uL [place] WBC (Bld) [#/Vol] 0.0 10*3/uL 0.0 per 10 0 WBC [place] WBC (Bld) [#/Vol] 14.5 10*3/uL High [place] CSF Cell Counton 05-25-2019 Appearance (U) SLIGHTLY BLOODY Normal [facility] Comment on above: Performed By: #### C DP, BMP, LIPR, MG, GLYHGB #### [facility] [address] [place] [address] Relay Checker: Zaki Humphries MD RBC (Bld) [#/Vol] 308[address] /mm3 High 0 [facility] Comment on above: Performed By: #### C DP, BMP, LIPR, MG, GLYHGB #### [facility] [address] [place] [address] Relay Checker: Zaki Humphries MD Tube Number 3 Normal [facility] Comment on above: Performed By: #### C DP, BMP, LIPR, MG, GLYHGB #### [facility] [address] [place] [address] Relay Checker: Zaki Humphries MD WBC (Bld) [#/Vol] 92 /mm3 High <5 [facility] Comment on above: Performed By: #### C DP, BMP, LIPR, MG, GLYHGB #### [facility] [address] [place] [address] Relay Checker: Zaki Humphries MD Xanthochromia PRESENT Normal [facility] Comment on above: Performed By: #### C DP, BMP, LIPR, MG, GLYHGB #### [facility] [address] [place] [address] Relay Checker: Zaki Humphries MD Color (U) NOT REPORTED Normal [facility] Comment on above: Performed By: #### C DP, BMP, LIPR, MG, GLYHGB #### [facility] [address] [place] [address] Relay Checker: Zaki Humphries MD Volume 5 Normal [facility] Comment on above: Performed By: #### C DP, BMP, LIPR, MG, GLYHGB #### [facility] [address] [place] [address] Relay Checker: Zaki Humphries MD CSF Cell Count with Travis clark 05-25-2019 Appearance, CSF SLIGHTLY BLOODY [facility] Interpretation and review of laboratory results Abnormal [facility] [place] RBC, CSF 17167 /mm3 High 0 [facility] [place] Supernatant Color, CSF NOT REPORTED [facility] Tube Number, CSF 3 [facility] [place] Volume, CSF 5 [facility] WBC (Bld) [#/Vol] 92 /mm3 High <5 [facility] [place] Xanthochromia [facility]ENT [facility] [place] [place] CSF Differentialon 0 Lymphocytes/100 WBC (Bld) 92 % Normal [facility] Comment on above: Result Comment: The reference range and other method performance specifications have not been established for this body fluid. The test result must be integrated into the clinical context for interpretation. Performed By: #### C DP, BMP, LIPR, MG, GLYHGB #### [facility] [address] [place] [address] Relay Checker: Zaki Humphries MD Neutrophils/100 WBC (Bld) 1 % Normal [facility] Comment on above: Result Comment: The reference range and other method performance specifications have not been established for this body fluid. The test result must be integrated into the clinical context for interpretation. Performed By: #### C DP, BMP, LIPR, MG, GLYHGB #### [facility] [address] [place] [address] Relay Checker: Zaki Humphries MD Bands NOT REPORTED Normal [facility] Comment on above: Performed By: #### C DP, BMP, LIPR, MG, GLYHGB #### [facility] [address] [place] [address] Relay Checker: Zaki Humphries MD Basophils/100 WBC (Bld) NOT REPORTED Normal [facility] Comment on above: Performed By: #### C DP, BMP, LIPR, MG, GLYHGB #### [facility] [address] [place] [address] Relay Checker: Zaki Humphries MD Blast NOT REPORTED Normal [facility] Comment on above: Performed By: #### C DP, BMP, LIPR, MG, GLYHGB #### [facility] [address] [place] [address] Relay Checker: Zaki Humphries MD Comment NOT REPORTED Normal [facility] Comment on above: Performed By: #### C DP, BMP, LIPR, MG, GLYHGB #### [facility] [address] [place] [address] Relay Checker: Zaki Humphries MD Eosinophils (Bld) [#/Vol] NOT REPORTED Normal [facility] Comment on above: Performed By: #### C DP, BMP, LIPR, MG, GLYHGB #### [facility] [address] [place] [address] Relay Checker: Zaki Humphries MD Metamyelocytes/100 WBC (Bld) NOT REPORTED Normal [facility] Comment on above: Performed By: #### C DP, BMP, LIPR, MG, GLYHGB #### [facility] [address] [place] [address] Relay Checker: Zaki Humphries MD Gates/Macrophage NOT REPORTED Normal [facility] Comment on above: Performed By: #### C DP, BMP, LIPR, MG, GLYHGB #### [facility] [address] [place] [address] Relay Checker: Zaki Humphries MD Myelocyte NOT REPORTED Normal [facility] Comment on above: Performed By: #### C DP, BMP, LIPR, MG, GLYHGB #### [facility] [address] [place] [address] Relay Checker: Zaki Humphries MD Echo Completeon 05-25-2019 Juanc[facility]os, [facility] Incoming Cardio Results From [facility]/ - 05/25/2019 6:26 PM EDT Transthoracic Echocardiography Report (TTE) Patient Name NATHANAEL Date of Study 05/25/2019 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 Procedure Date Date: 05/25/2019 Start: 04:30 PM Study Location: [facility] Technical Quality: Fair visualization History / [...] Wall E' velocity:0.12 m/s Lateral Wall E/E':7.3 [place] Glucose, CSFon 05-25-2019 Glucose, CSF 97 mg/dL High 40 - 70 mg/dL [facility] [place] [facility] Glucose [Mass/Vol] 97 mg/dL High 40-70 [facility] Comment on above: Performed By: #### C DP, BMP, LIPR, MG, GLYHGB #### [facility] [place] [address] Relay Checker: Zaki Humphries MD Gram Stainon 05-25-2019 Microscopic observation Gram stain Nom (Unsp spec) Specimen Description .CSF Special Requests NOT REPORTED Direct Exam FEW MONONUCLEAR WHITE BLOOD CELLS SEEN NO BACTERIA SEEN Gram stain made from cytocentrifuged specimen. Organisms and cells will be concentrated. Report Status FINAL 05/25/2019 Normal [facility] Comment on above: Performed By: #### C DP, BMP, LIPR, MG, GLYHGB #### [facility] [place] [address] Relay Checker: Zaki Humphries MD Direct Exam Gram stain made from cytocentrifuged specimen. Organisms and cells will be concentrated. [facility] Direct Exam NO BACTERIA SEEN [facility] [place] Direct Exam FEW MONONUCLEAR WHIT E BLOOD CELLS SEEN Abnormal [facility] [place] Interpretation and review of laboratory results Abnormal [facility] [place] Special Requests NOT REPORTED [place] Specimen Description .CSF [facility] [place] IR LUMBAR PUNCTURE FOR DIAGN OSISon 05-25-2019 IR LUMBAR PUNCTURE FOR DIAGNOSIS EXAMINATION: FLUOROSCOPIC GUIDED LUMBAR PUNCTURE 05/25/2019 12:01 pm HISTORY: ORDERING SYSTEM PROVIDED HISTORY: vasculitis TECHNOLOGIST PROVIDED HISTORY: vasculitis Subarachnoid hemorrhage, workup for subarachnoid hemorrhage FLUOROSCOPY DOSE AND TYPE OR TIME AND EXPOSURES: DAP 134 cGy cm squared PROCEDURE: TRANSFER ENGINEER: Geraldine Husain MD Informed consent was obtained after the risks and benefits of the procedure were discussed with the patient and all questions were answered fully. [place] protocol was observed and a standard timeout [...] Geraldine Husain MD 05/25/19 Final result Normal [facility] Successful fluoroscopic-guided lumbar puncture. [place], [place] Juancarlos, [facility] Incoming Radiant Results From [employer] - 05/25/2019 2:58 PM EDT EXAMINATION: FLUOROSCOPIC GUIDED LUMBAR PUNCTURE 05/25/2019 12:01 pm HISTORY: ORDERING SYSTEM PROVIDED HISTORY: vasculitis TECHNOLOGIST PROVIDED HISTORY: vasculitis Subarachnoid hemorrhage, workup for subarachnoid hemorrhage FLUOROSCOPY DOSE AND TYPE OR TIME AND EXPOSURES: DAP 134 cGy cm squared PROCEDURE: TRANSFER ENGINEER: Geraldine Husain MD Informed consent was obtained after the risks and benefits of the procedure were discussed with the patient and all questions were answered fully. [place] protocol was observed and a standard timeout [...] procedure well. IMPRESSION: Successful fluoroscopic-guided lumbar puncture. [place] EXAMINATION: FLUOROSCOPIC GUIDED LUMBAR PUNCTURE 05/25/2019 12:01 pm HISTORY: ORDERING SYSTEM PROVIDED HISTORY: vasculitis TECHNOLOGIST PROVIDED HISTORY: vasculitis Subarachnoid hemorrhage, workup for subarachnoid hemorrhage FLUOROSCOPY DOSE AND TYPE OR TIME AND EXPOSURES: DAP 134 cGy cm squared PROCEDURE: TRANSFER ENGINEER: Geraldine Husain MD Informed consent was obtained after the risks and benefits of the procedure were discussed with the patient and all questions were answered fully. [place] protocol was observed and a standard timeout [...] and the patient tolerated the procedure well. [place] Magnesiumon 05-25-2019 Magnesium [Mass/Vol] 2.4 mg/dL Normal 1.6-2.6 [facility] Comment on above: Performed By: #### C DP, BMP, LIPR, MG, GLYHGB #### [facility] [address] [place] [address] [phone] Relay Checker: Zaki Humphries MD Magnesium [Mass/Vol] 2.4 mg/dL 1.6 - 2 .6 mg/dL [place] Otheron 05-25-2019 Interpretation and review of laboratory results Abnormal [place] POC Glucose Fingerstickon Glucose [Mass/Vol] 218 mg/dL High 65 - 105 mg/dL [place] Interpretation and review of laboratory results Abnormal [place] Glucose [Mass/Vol] 242 mg/dL High 65 - 105 mg/dL [place] Interpretation and review of laboratory results Abnormal [place] Glucose [Mass/Vol] 165 mg/dL High 65 - 105 mg/dL [place] Interpretation and review of laboratory results Abnormal [place] Protein, CSFon 05-25-2019 Protein, CSF 69.2 mg/dL High 15 - 45 mg/dL [place] Protein, Total, CSFon 2019 Total Protein - CSF 69.2 mg/dL High 15.0-45.0 [facility] Comment on above: Performed By: #### C DP, BMP, LIPR, MG, GLYHGB #### [facility] [address] [place] [address] [phone] Relay Checker: Zaki Humphries MD RA Screenon 05-25-2019 RA Screen 123.0 IU/mL High <14 [facility] Comment on above: Performed By: #### D AU #### [facility] [address] [place] [address] [phone] Relay Checker: Zaki Humphries MD RHEUMATOID FACTORon 05-25-19 20 Interpretation and review of laboratory results Abnormal [place] Rheumatoid Factor 123 High <14 IU/mL [facility] [place] [place] Basic Metabolic Profon 05-23 (cont.) Normal [facility] Comment on above: Result Comment: Aver age GFR for 50-59 years old: 93 mL/min/1.73sq m Chronic Kidney Disease: <60 mL/min/1.73sq m Kidney failure: <15 mL/min/1.73sq m eGFR calculated using average adult body mass. Additional eGFR calculator available at: http://www.TerraSky/multiple_crcl_2012.htm Performed By: #### C BC, BMP, MG ####[facility] [address] [place] [address] Lab Director: Zaki Humphries MD Anion gap [Moles/Vol] 12 mmol/L Normal 9-17 [facility] Comment on above: Performed By: #### C BC, BMP, MG ####[facility] [address] [place], [place] [address])[phone] Director: Zaki Humphries MD Calcium [Mass/Vol] 9.2 mg/dL Normal 8.6-10.4 [facility] Comment on above: Performed By: #### C BC, BMP, MG ####[facility] [address] [place], [place] [phone] Director: Zaki Humphries MD Chloride [Moles/Vol] 104 mmol/L Normal 98-107 [facility] Comment on above: Performed By: #### C BC, BMP, MG ####[facility] [address] [place], [place] [phone] Director: Zaki Humphries MD CO2 [Moles/Vol] 21 mmol/L Normal 20-31 [facility] Comment on above: Performed By: #### C BC, BMP, MG ####[facility] [address] [place], [place] [phone] Director: Zaki Humphries MD Creatinine [Mass/Vol] 0.65 mg/dL Normal 0.50-0.90 [facility] Comment on above: Performed By: #### C BC, BMP, MG ####[facility] [address] [place] [address] Lab Director: Zaki Humphries MD GFR, Amer >60 Normal >60 [facility] Comment on above: Performed By: #### C BC, BMP, MG ####[facility] [address] [place] [address] Lab Director: Zaki Humphries MD GFR,non Amer >60 Normal >60 [facility] Comment on above: Performed By: #### C BC, BMP, MG ####[facility] [address] [place] [address] Lab Director: Zaki Humphries MD Glucose [Mass/Vol] 102 mg/dL High 70-99 [facility] Comment on above: Performed By: #### C BC, BMP, MG ####[facility] [address] [place] [address] Lab Director: Zaki Humphries MD Potassium [Moles/Vol] 4.0 mmol/L Normal 3.7-5.3 [facility] Comment on above: Performed By: #### C BC, BMP, MG ####[facility] [address] [place] [address] Lab Director: Zaki Humphries MD Sodium [Moles/Vol] 137 mmol/L Normal 135-144 [facility] Comment on above: Performed By: #### C BC, BMP, MG ####[facility] [address]asx[address] [place] [address] Lab Director: Zaki Humphries MD Urea nitrogen [Mass/Vol] 17 mg/dL Normal 6-20 [facility] Comment on above: Performed By: #### C BC, BMP, MG ####[facility] [address] [place], [place] [phone] lab Director: Zaki Humphries MD BUN/CRE Ratio NOT REPORTED Normal - [facility] Comment on above: Performed By: #### C BC, BMP, MG ####[facility] [address] [place] [address] lab Director: Zaki Humphries MD Staging: NOT REPORTED Normal [facility] Comment on above: Performed By: #### C BC, BMP, MG ####[facility] [address] [place], [place] [phone] lab Director: Zaki Humphries MD Basic metabolic panelon 05-14 Anion gap [Moles/Vol] 12 mmol/L 9 - 17 mmol/L [place] Bun/Cre Ratio NOT REPORTED [place] Calcium [Mass/Vol] 9.2 mg/dL 8.6 - 10. 4 mg/dL [place] Chloride [Moles/Vol] 104 mmol/L 98 - 10 7 mmol/L [place] CO2 [Moles/Vol] 21 mmol/L 20 - 31 mmol/L [place] Creatinine [Mass/Vol] 0.65 mg/dL 0.5 - 0.9 mg/dL [place] GFR >60 >60 mL/min [place] GFR Non- >60 >60 mL/min [place] GFR/1.73 sq M predicted among non-blacks MDRD (S/P/Bld) [Vol rate/Area] [place] Comment on above: Average GFR for 50-5 9 years old: 93 mL/min/1.73sq m Chronic Kidney Disease: <60 mL/min/1.73sq m Kidney failure: <15 mL/min/1.73sq m eGFR calculated using average adult body mass. Additional eGFR calculator available at: http://www.A LITTLE WORLD.9+/multiple_crcl_2012.htm GFR/1.73 sq M predicted among non-blacks MDRD (S/P/Bld) [Vol rate/Area] NOT REPORTED [place] Glucose [Mass/Vol] 102 mg/dL High 70 - 99 mg/dL [place], [place] Interpretation and review of laboratory results Abnormal [place] Potassium [Moles/Vol] 4.0 mmol/L 3.7 - 5.3 mmol/L [place] Sodium [Moles/Vol] 137 mmol/L 135 - 144 mmol/L [place] Urea nitrogen [Mass/Vol] 17 mg/dL 6 - 20 mg/dL [place] C-REACTIVE PROTEIN 020 CRP [Mass/Vol] 4.7 mg/L 0 - 5 mg/L [place] C-Reactive Protein 020 CRP [Mass/Vol] 4.7 mg/L Normal 0.0-5.0 [facility] Comment on above: Performed By: #### D AU #### [facility] [place], [place] [phone] Relay Checker: Zaki Humphries MD C3on 05-24-2019 C3 140 mg/dL Normal 90-180 [facility] Comment on above: Performed By: #### C 3, C4, CRP, TSHX, PHEP, SED, RA, ANASCX, ANCACP, GBMG, APA, HIVX, CRYO ####[facility] [address] [place], [place] [phone] Lab Director: Zaki Humphries MD C3 COMPLEMENTon 05-24-2019 Complement C3 140 mg/dL 90 - 180 mg/dL [place] C4on 05-24-2019 C4 23 mg/dL Normal 10-40 [facility] Comment on above: Performed By: #### D AU #### [facility] [address] [place], [place] [phone] Relay Checker: Zaki Humphries MD C4 COMPLEMENTon 05-24-2019 Complement C4 23 mg/dL 10 - 40 mg/dL [place], [place] CBCon 03-10-2020 Erythrocyte distribution width (RBC) [Ratio] 13.1 % Normal 11.8-14.4 [facility] Comment on above: Performed By: #### C BC BMP, MG ####[facility] [address]ik[address] [place] [address] Lab Director: Zaki Humphries MD Hematocrit (Bld) [Volume fraction] 43.2 % Normal 36.3-47.1 [facility] Comment on above: Performed By: #### C BC, BMP, MG ####[facility] [address] [place], [place] [phone] Director: Zaki Humphries MD Hemoglobin (Bld) [Mass/Vol] 14.0 g/dL Normal 11.9-15.1 [facility] Comment on above: Performed By: #### C BC, BMP, MG ####[facility] [address] [place] [phone])[phone] Director: Zaki Humphries MD MCH (RBC) [Entitic mass] 30.2 pg Normal 25.2-33.5 [facility] Comment on above: Performed By: #### C LAURA BMP, MG ####[facility] [address] [place] [address] [phone] Director: Zaki Humphries MD MCHC (RBC) [Mass/Vol] 32.4 g/dL Normal 28.4-34.8 [facility] Comment on above: Performed By: #### C BC, BMP, MG ####[facility] [address] [place], [place] [address])[phone] Director: Zaki Humphries MD MCV (RBC) [Entitic vol] 93.3 fL Normal 82.6-102.9 [facility] Comment on above: Performed By: #### C BC, BMP, MG ####[facility] [address] [place] [address] Lab Director: Zaki Humphries MD NRBC Automated 0.0 per 100 WBC Normal 0.0 [facility] Comment on above: Performed By: #### C BC BMP, MG ####[facility] [address]zgcupr[address] [place] [address] Lab Director: Zaki Humphries MD Platelet mean volume (Bld) [Entitic vol] 9.3 fL Normal 8.1-13.5 [facility] Comment on above: Performed By: #### C BC BMP, MG ####[facility] [address] [place] [address] Lab Director: Zaki Humphries MD Platelets (Bld) [#/Vol] 262 10*3/uL Normal 138-453 [facility] Comment on above: Performed By: #### C LAURA BMP, MG ####[facility] [address]urt[address]shr4735 [place] [address] Lab Director: Zaki Humphries MD RBC (Bld) [#/Vol] 4.63 10*6/uL Normal 3.95-5.11 [facility] Comment on above: Performed By: #### C LAURA BMP, MG ####[facility] [address] [place] [address] Lab Director: Zaki Humphries MD WBC (Bld) [#/Vol] 11.0 10*3/uL Normal 3.5-11.3 [facility] Comment on above: Performed By: #### C BC BMP, MG ####[facility] [address]dfys[address] [place] [address] Lab Director: Zaki Humphries MD Erythrocyte distribution width (RBC) [Ratio] 13.1 % 11.8 - 14.4 % [place] Hematocrit (Bld) [Volume fraction] 43.2 % 36.3 - 47.1 % [place] Hemoglobin (Bld) [Mass/Vol] 14.0 g/dL 11.9 - 15.1 g/dL [place] MCH (RBC) [Entitic mass] 30.2 pg 25.2 - 33.5 pg [place] MCHC (RBC) [Mass/Vol] 32.4 g/dL 28.4 - 34.8 g/dL [place] MCV (RBC) [Entitic vol] 93.3 fL 82.6 - 102.9 fL [place] Platelet mean volume (Bld) [Entitic vol] 9.3 fL 8.1 - 13.5 fL [place] Platelets (Bld) [#/Vol] 262 10*3/uL [place] RBC (Bld) [#/Vol] 4.63 10*6/uL 3.95 - 5.1 1 m/uL [place] WBC (Bld) [#/Vol] 0.0 10*3/uL 0.0 per 10 0 WBC [place] WBC (Bld) [#/Vol] 11.0 10*3/uL [place] DNA Testingon 05-24-2019 DNA Testing (NOTE) Specimen(s) Received: Peripheral blood, [facility]VLI Clinical Information: TIA RESULTS: MOLECULAR GENETIC DIAGNOSIS: Negative for Factor V Leiden Mutation INTERPRETATION: The Factor V Leiden mutation (1691GA) [c.1601G>A(p.[id number] )] was not detected in this study. This patient may, however, still be at risk for venous thrombosis due to another genetic predisposition including the Factor II (Prothrombin 43332QS) mutation or either of the 5, 10-methylenetetrahydro folate reductase (MTHFR) mutations (677T and G5205D) Additional molecular testing is available for these [...] which predicts a single amino acid replacement ([id number]) at one of three activated protein C [...] the Invader Factor V test that utilizes PartyWithMe chemistry for detecting gene-specific sequences. Target amplification [...] Invader and Cleavase are registered trademarks of [employer] This test is performed pursuant to an agreement with [employer] Electronically Signed Out Archie Robison M.D. [facility] [address] [place] [phone] FACTOR V LEIDEN MUTATION ANALYSIS REPORT [facility] Jorge Wilde MD, Archie Robison MD [facility] Comment on above: Performed By: #### C DP, BMP, LIPR, MG, GLYHGB #### [facility] [place] [address] Relay Checker: Zaki Humphries MD HEPATITIS PANEL, [facility] HAV IgM IA Qn (S) NONREACTIVE NONREACTIVE [facility], [place] Hep B Core Ab, IgM NONREACTIVE NONREACTIVE [facility] Hepatitis B Surface Ag NONREACTIVE NONREACTIVE [facility] Hepatitis C Ab NONREACTIVE NONREACTIVE [facility], [place] Comment on above: The hepatitis C procedure [...] ordering HCV RNA by PCR. Hepatitis Acute [facility] 05-23 Hep A Ab,IgM NONREACTIVE Normal NR [facility] Comment on above: Performed By: #### D AU #### [facility] [address] [place] [address] Relay Checker: Zaki Humphries MD Hep B Core Ab,IgM NONREACTIVE Normal NR [facility] Comment on above: Performed By: #### D AU #### [facility] [address] [place] [address] Relay Checker: Zaki Humphries MD Hep B Surf Ag NONREACTIVE Normal NR [facility] Comment on above: Performed By: #### D AU #### [facility] [address] [place] [address] Relay Checker: Zaki Humphries MD Hep C Ab NONREACTIVE Normal NR [facility] Comment on above: Result Comment: [...] PCR. Performed By: #### D AU #### [facility] [address] [place] [address] Relay Checker: Zaki Humphries MD Magnesiumon 05-24-2019 Magnesium [Mass/Vol] 2.4 mg/dL Normal 1.6-2.6 [facility] Comment on above: Performed By: #### C BC, BMP, MG ####[facility] [employer] [address] [place] [address] Lab Director: Zaki Humphries MD Magnesium [Mass/Vol] 2.4 mg/dL 1.6 - 2 .6 mg/dL [place] POC Glucose Fingerstickon Glucose [Mass/Vol] 190 mg/dL High 65 - 105 mg/dL [place] Interpretation and review of laboratory results Abnormal [place] Glucose [Mass/Vol] 170 mg/dL High 65 - 105 mg/dL [place] Interpretation and review of laboratory results Abnormal [place] Glucose [Mass/Vol] 85 mg/dL 65 - 105 mg/dL [place] Sedimentation Rateon 020 Sedimentation Rate 10 mm Normal 0-20 [facility] Comment on above: Performed By: #### D AU #### [facility] [address] [place] [address] Relay Checker: Zaki Humphries MD Sed Rate 10 mm 0 - 20 mm [place] TSH w/reflex to FT4on 2019 TSH Qn 3.52 m[IU]/L Normal 0.30-5.00 [facility] Comment on above: Performed By: #### D AU #### [facility] [address] [place] [address] Relay Checker: Zaki Humphries MD TSH with Reflexon 05-24-2019 TSH Qn 3.52 m[IU]/L [place] XR CHEST PORTABLEon 05-24-19 20 XR [...] Suresh Sanderson MD 05/24/19 Final result Normal [facility] No acute cardiopulmonary process. [facility] [place] EX[facility]: ONE XRA Y VIEW OF THE [...] unremarkable. There is no acute osseous abnormality. [place] Juancarlos, Mhpn Incoming Radiant Results From [employer] - 05/24/2019 2:28 PM EDT EXAMINATION: ONE XRAY VIEW OF THE CHEST 05/24/2019 2:14 pm COMPARISON: Chest radiograph performed 05/22/2019. HISTORY: ORDERING SYSTEM PROVIDED HISTORY: cough TECHNOLOGIST PROVIDED HISTORY: cough Reason for Exam: supine port Acuity: Unknown Type of Exam: Unknown FINDINGS: There is no acute consolidation or effusion. There is no pneumothorax. The mediastinal structures are unremarkable. The upper abdomen is unremarkable. The extrathoracic soft tissues are unremarkable. There is no acute osseous abnormality. IMPRESSION: No acute cardiopulmonary process. [facility] APTTon 05-23-2019 aPTT Coag (Bld) [Time] 24.3 s Normal 20.5-30.5 [facility] Comment on above: Performed By: #### P TT, PT ####[id number] [place] [address] [facility] Director: Zaki Humphries MD aPTT Coag (Bld) [Time] 24.3 s [place] BASIC METABOLIC PANELon Anion gap [Moles/Vol] 13 mmol/L 9 - 17 mmol/L [place] Bun/Cre Ratio NOT REPORTED [place] Calcium [Mass/Vol] 9.3 mg/dL 8.6 - 10. 4 mg/dL [place] Chloride [Moles/Vol] 98 mmol/L 98 - 10 7 mmol/L [place] CO2 [Moles/Vol] 23 mmol/L 20 - 31 mmol/L [place] Creatinine [Mass/Vol] 0.63 mg/dL 0.5 - 0.9 mg/dL [place] GFR >60 >60 mL/min [place] GFR Non- >60 >60 mL/min [place] GFR/1.73 sq M predicted among non-blacks MDRD (S/P/Bld) [Vol rate/Area] [place] Comment on above: Average GFR for 50-5 9 years old: 93 mL/min/1.73sq m Chronic Kidney Disease: <60 mL/min/1.73sq m Kidney failure: <15 mL/min/1.73sq m eGFR calculated using average adult body mass. Additional eGFR calculator available at: http://www.TerraSky/multiple_crcl_2012.htm GFR/1.73 sq M predicted among non-blacks MDRD (S/P/Bld) [Vol rate/Area] NOT REPORTED [place], [place] Glucose [Mass/Vol] 110 mg/dL High 70 - 99 mg/dL [place] Potassium [Moles/Vol] 3.4 mmol/L Low 3.7 - 5.3 mmol/L [place] Sodium [Moles/Vol] 134 mmol/L Low 135 - 144 mmol/L [place] Urea nitrogen [Mass/Vol] 16 mg/dL 6 - 20 mg/dL [place] Basic Metabolic Profon 05-22 (cont.) Normal [facility] Comment on above: Result Comment: Aver age GFR for 50-59 years old: 93 mL/min/1.73sq m Chronic Kidney Disease: <60 mL/min/1.73sq m Kidney failure: <15 mL/min/1.73sq m eGFR calculated using average adult body mass. Additional eGFR calculator available at: http://www.[employer] LITTLE WORLD.9+/multiple_crcl_2012.htm Performed By: #### C BC, BMP, MG #### [facility] [address] [place] [address] Relay Checker: Zaki Humphries MD Anion gap [Moles/Vol] 13 mmol/L Normal 9-17 [facility] Comment on above: Performed By: #### C BC, BMP, MG #### [facility] [address] [place] [address] Relay Checker: Zaki Humphries MD Calcium [Mass/Vol] 9.2 mg/dL Normal 8.6-10.4 [facility] Comment on above: Performed By: #### C BC, BMP, MG #### [facility] [address] [place] [address] Relay Checker: Zaki Humphries MD Chloride [Moles/Vol] 99 mmol/L Normal 98-107 [facility] Comment on above: Performed By: #### C BC, BMP, MG #### [facility] [address] [place] [address] Relay Checker: Zaki Humphries MD CO2 [Moles/Vol] 24 mmol/L Normal 20-31 [facility] Comment on above: Performed By: #### C BC, BMP, MG #### [facility] [address] [place] [address] Relay Checker: Zaki Humphries MD Creatinine [Mass/Vol] 0.72 mg/dL Normal 0.50-0.90 [facility] Comment on above: Performed By: #### C BC, BMP, MG #### [employer] [address] [place] [address] Relay Checker: Zaki Humphries MD GFR, Amer >60 Normal >60 [facility] Comment on above: Performed By: #### C BC, BMP, MG #### [facility] [address] [place] [address] Relay Checker: Zaki Humphries MD GFR,non Amer >60 Normal >60 [facility] Comment on above: Performed By: #### C BC, BMP, MG #### [facility] [address] [place] [address] Relay Checker: Zaki Humphries MD Glucose [Mass/Vol] 99 mg/dL Normal 70-99 [facility] Comment on above: Performed By: #### C BC, BMP, MG #### [facility] [address] [place] [address] Relay Checker: Zaki Humphries MD Potassium [Moles/Vol] 3.9 mmol/L Normal 3.7-5.3 [facility] Comment on above: Performed By: #### C BC, BMP, MG #### [facility] [address] [place] [address] Relay Checker: Zaki Humphries MD Sodium [Moles/Vol] 136 mmol/L Normal 135-144 [facility] Comment on above: Performed By: #### C BC, BMP, MG #### [facility] [address] [place] [address] Relay Checker: Zaki Humphries MD Urea nitrogen [Mass/Vol] 15 mg/dL Normal 6-20 [facility] Comment on above: Performed By: #### C BC, BMP, MG #### [facility] [address] [place] [address] Relay Checker: Zaki Humphries MD BUN/CRE Ratio NOT REPORTED Normal 9-20 [facility] Comment on above: Performed By: #### C BC, BMP, MG #### [address] [phone] Relay Checker: Zaki Humphries MD Staging: NOT REPORTED Normal [facility] Comment on above: Performed By: #### C BC, BMP, MG #### [address] [phone] Relay Checker: Zaki Humphries MD (cont.) Normal [facility] Comment on above: Result Comment: Aver age GFR for 50-59 years old: 93 mL/min/1.73sq m Chronic Kidney Disease: <60 mL/min/1.73sq m Kidney failure: <15 mL/min/1.73sq m eGFR calculated using average adult body mass. Additional eGFR calculator available at: http://www.[employer]ITTLE WORLD.9+/multiple_crcl_2011.htm Performed By: #### C DP, BMP, LIPR, MG, GLYHGB #### [address] [address] Relay Checker: Zaki Humphries MD Anion gap [Moles/Vol] 13 mmol/L Normal 9-17 [facility] Comment on above: Performed By: #### C DP, BMP, LIPR, MG, GLYHGB #### [address] [phone] Relay Checker: Zaki Humphries MD Calcium [Mass/Vol] 9.3 mg/dL Normal 8.6-10.4 [facility] Comment on above: Performed By: #### C DP, BMP, LIPR, MG, GLYHGB #### [address] [address] Relay Checker: Zaki Humphries MD Chloride [Moles/Vol] 98 mmol/L Normal 98-107 [facility] Comment on above: Performed By: #### C DP, BMP, LIPR, MG, GLYHGB #### [address] [address] Relay Checker: Zaki Humphries MD CO2 [Moles/Vol] 23 mmol/L Normal 20-31 [facility] Comment on above: Performed By: #### C DP, BMP, LIPR, MG, GLYHGB #### [address] [address] Relay Checker: Zaki Humphries MD Creatinine [Mass/Vol] 0.63 mg/dL Normal 0.50-0.90 [facility] Comment on above: Performed By: #### C DP, BMP, LIPR, MG, GLYHGB #### [address] [address] Relay Checker: Zaki Humphries MD GFR, Amer >60 Normal >60 [facility] Comment on above: Performed By: #### C DP, BMP, LIPR, MG, GLYHGB #### [address] [address] Relay Checker: Zaki Humphries MD GFR,non Amer >60 Normal >60 [facility] Comment on above: Performed By: #### C DP, BMP, LIPR, MG, GLYHGB #### [address] [address] Relay Checker: Zaki Humphries MD Glucose [Mass/Vol] 110 mg/dL High 70-99 [facility] Comment on above: Performed By: #### C DP, BMP, LIPR, MG, GLYHGB #### [address] [address] Relay Checker: Zaki Humphries MD Potassium [Moles/Vol] 3.4 mmol/L Low 3.7-5.3 [facility] Comment on above: Performed By: #### C DP, BMP, LIPR, MG, GLYHGB #### [facility] [address] [place] [address] Relay Checker: Zaki Humphries MD Sodium [Moles/Vol] 134 mmol/L Low 135-144 [facility] Comment on above: Performed By: #### C DP, BMP, LIPR, MG, GLYHGB #### [facility] [address] [place] [address] Relay Checker: Zaki Humphries MD Urea nitrogen [Mass/Vol] 16 mg/dL Normal -20 [facility] Comment on above: Performed By: #### C DP, BMP, LIPR, MG, GLYHGB #### [facility] [address] [place] [address] Relay Checker: Zaki Humphries MD BUN/CRE Ratio NOT REPORTED Normal - [facility] Comment on above: Performed By: #### C DP, BMP, LIPR, MG, GLYHGB #### [facility] [address] [place] [address] [phone] Relay Checker: Zaki Humphries MD Staging: NOT REPORTED Normal [facility] Comment on above: Performed By: #### C DP, BMP, LIPR, MG, GLYHGB #### [facility] [address] [place] [address] Relay Checker: Zaki Humphries MD Basic metabolic panelon Anion gap [Moles/Vol] 13 mmol/L 9 - 17 mmol/L [place] Bun/Cre Ratio NOT REPORTED [facility] [place], [place] Calcium [Mass/Vol] 9.2 mg/dL 8.6 - 10. 4 mg/dL [place] Chloride [Moles/Vol] 99 mmol/L 98 - 10 7 mmol/L [place] CO2 [Moles/Vol] 24 mmol/L 20 - 31 mmol/L [place] Creatinine [Mass/Vol] 0.72 mg/dL 0.5 - 0.9 mg/dL [place] GFR >60 >60 mL/min [place] GFR Non- >60 >60 mL/min [place] GFR/1.73 sq M predicted among non-blacks MDRD (S/P/Bld) [Vol rate/Area] [place] Comment on above: Average GFR for 50-5 9 years old: 93 mL/min/1.73sq m Chronic Kidney Disease: <60 mL/min/1.73sq m Kidney failure: <15 mL/min/1.73sq m eGFR calculated using average adult body mass. Additional eGFR calculator available at: http://www.TerraSky/TVDeck_crcl_2012.htm GFR/1.73 sq M predicted among non-blacks MDRD (S/P/Bld) [Vol rate/Area] NOT REPORTED [place], [place] Glucose [Mass/Vol] 99 mg/dL 70 - 99 mg/dL [place] Potassium [Moles/Vol] 3.9 mmol/L 3.7 - 5.3 mmol/L [place] Sodium [Moles/Vol] 136 mmol/L 135 - 144 mmol/L [place] Urea nitrogen [Mass/Vol] 15 mg/dL 6 - 20 mg/dL [place] CBCon 05-23-2019 Erythrocyte distribution width (RBC) [Ratio] 13.2 % Normal 11.8-14.4 [facility] Comment on above: Performed By: #### C KATHY SANCHEZ, MG #### [employer] [address] [place] [address] Relay Checker: Zaki Humphries MD Hematocrit (Bld) [Volume fraction] 47.1 % Normal 36.3-47.1 [facility] Comment on above: Performed By: #### C BC BMP, MG #### [employer] [address] [place] [address] [phone] Relay Checker: Zaki Humphries MD Hemoglobin (Bld) [Mass/Vol] 15.0 g/dL Normal 11.9-15.1 [facility] Comment on above: Performed By: #### C BC, BMP, MG #### [facility] [address] [place] [address] Relay Checker: Zaki Humphries MD MCH (RBC) [Entitic mass] 29.6 pg Normal 25.2-33.5 [facility] Comment on above: Performed By: #### C BC, BMP, MG #### [facility] [address] [place] [address] Relay Checker: Zaki Humphries MD MCHC (RBC) [Mass/Vol] 31.8 g/dL Normal 28.4-34.8 [facility] Comment on above: Performed By: #### C BC, BMP, MG #### [address] [address] Relay Checker: Zaki Humphries MD MCV (RBC) [Entitic vol] 92.9 fL Normal 82.6-102.9 [facility] Comment on above: Performed By: #### C BC BMP, MG #### [address] [address] Relay Checker: Zaki Humphries MD NRBC Automated 0.0 per 100 WBC Normal 0.0 [facility] Comment on above: Performed By: #### C BC, BMP, MG #### [facility] [address] [place] [address] Relay Checker: Zaki Humphries MD Platelet mean volume (Bld) [Entitic vol] 9.6 fL Normal 8.1-13.5 [facility] Comment on above: Performed By: #### C BC, BMP, MG #### [facility] [address] [place] [address] Relay Checker: Zaki Humphries MD Platelets (Bld) [#/Vol] 300 10*3/uL Normal 138-453 [facility] Comment on above: Performed By: #### C BC, BMP, MG #### [facility] [address] [place], [place] [phone] Relay Checker: Zaki Humphries MD RBC (Bld) [#/Vol] 5.07 10*6/uL Normal 3.95-5.11 [facility] Comment on above: Performed By: #### C BC, BMP, MG #### [facility] [address] [place], [place] [phone] Relay Checker: Zaki Humphries MD WBC (Bld) [#/Vol] 14.1 10*3/uL High 3.5-11.3 [facility] Comment on above: Performed By: #### C BC, BMP, MG #### [facility] [address] [place], [place] [phone] Relay Checker: Zaki Humphries MD Erythrocyte distribution width (RBC) [Ratio] 13.2 % 11.8 - 14.4 % [place] Hematocrit (Bld) [Volume fraction] 47.1 % 36.3 - 47.1 % [place] Hemoglobin (Bld) [Mass/Vol] 15.0 g/dL 11.9 - 15.1 g/dL [place] Interpretation and review of laboratory results Abnormal [place] MCH (RBC) [Entitic mass] 29.6 pg 25.2 - 33.5 pg [place] MCHC (RBC) [Mass/Vol] 31.8 g/dL 28.4 - 34.8 g/dL [place] MCV (RBC) [Entitic vol] 92.9 fL 82.6 - 102.9 fL [place] Platelet mean volume (Bld) [Entitic vol] 9.6 fL 8.1 - 13.5 fL [place] Platelets (Bld) [#/Vol] 300 10*3/uL [place] RBC (Bld) [#/Vol] 5.07 10*6/uL 3.95 - 5.1 1 m/uL [place] WBC (Bld) [#/Vol] 0.0 10*3/uL 0.0 per 10 0 WBC [place] WBC (Bld) [#/Vol] 14.1 10*3/uL High [place] CBC WITH AUTO DIFFERENTIALon 05-23-2019 Basophils (Bld) [#/Vol] 0.09 10*3/uL [place] Basophils/100 WBC (Bld) 1 % 0 - 2 % [place] Differential Type NOT REPORTED [place] Eosinophils (Bld) [#/Vol] 0.16 10*3/uL [place] Eosinophils/100 WBC (Bld) 1 % 1 - 4 % [place] Erythrocyte distribution width (RBC) [Ratio] 13.2 % 11.8 - 14.4 % [place] Hematocrit (Bld) [Volume fraction] 47.0 % 36.3 - 47.1 % [place] Hemoglobin (Bld) [Mass/Vol] 14.8 g/dL 11.9 - 15.1 g/dL [place] Immature granulocytes (Bld) [#/Vol] 0.11 10*3/uL [place] Immature granulocytes (Bld) [#/Vol] 1 % High 0 [place] Interpretation and review of laboratory results Abnormal [place] Lymphocytes (Bld) [#/Vol] 4.10 10*3/uL [place] Lymphocytes/100 WBC (Bld) 26 % 24 - 43 % [place] MCH (RBC) [Entitic mass] 29.6 pg 25.2 - 33.5 pg [place] MCHC (RBC) [Mass/Vol] 31.5 g/dL 28.4 - 34.8 g/dL [place] MCV (RBC) [Entitic vol] 94.0 fL 82.6 - 102.9 fL [place] Monocytes (Bld) [#/Vol] 1.05 10*3/uL [place] Monocytes/100 WBC (Bld) 7 % 3 - 12 % [place] Platelet mean volume (Bld) [Entitic vol] 9.3 fL 8.1 - 13.5 fL [place] Platelets (Bld) [#/Vol] 296 10*3/uL [place] Platelets (Bld) [#/Vol] NOT REPORTED [place] RBC (Bld) [#/Vol] 5.00 10*6/uL 3.95 - 5.1 1 m/uL [place] RBC morphology finding Nom (Bld) NOT REPORTED [place] Segmented neutrophils/100 WBC (Bld) 64 % 36 - 65 % [place] Segs Absolute 10.39 High [place] WBC (Bld) [#/Vol] 0.0 10*3/uL 0.0 per 10 0 WBC [place] WBC (Bld) [#/Vol] 15.9 10*3/uL [place] WBC Morphology NOT REPORTED [place], [place] CBC with Diffon 05-23-2019 Abs. Basophil 0.09 k/uL Normal 0.00-0.20 [facility] Comment on above: Performed By: #### C DP, BMP, LIPR, MG, GLYHGB #### [facility] [address] [place] [address] [phone] Relay Checker: Zaki Humphries MD Abs.Imm.Granulocyte 0.11 k/uL Normal 0.00-0.30 [facility] Comment on above: Performed By: #### C DP, BMP, LIPR, MG, GLYHGB #### [facility] [address] [place] [address] [phone] Relay Checker: Zaki Humphries MD Abs.Neutrophil (Seg) 10.39 k/uL High 1.50-8.10 [facility] Comment on above: Performed By: #### C DP, BMP, LIPR, MG, GLYHGB #### [facility] [address] [place] [address] Relay Checker: Zaki Humphries MD Basophils/100 WBC (Bld) 1 % Normal 0-2 [facility] Comment on above: Performed By: #### C DP, BMP, LIPR, MG, GLYHGB #### [address] [address] Relay Checker: Zaki Humphries MD Eosinophils (Bld) [#/Vol] 0.16 10*3/uL Normal 0.00-0.44 [facility] Comment on above: Performed By: #### C DP, BMP, LIPR, MG, GLYHGB #### [facility] [address] [place] [address] Relay Checker: Zaki Humphries MD Eosinophils/100 WBC (Bld) 1 % Normal 1-4 [facility] Comment on above: Performed By: #### C DP, BMP, LIPR, MG, GLYHGB #### [place] [address] Relay Checker: Zaki Humphries MD Erythrocyte distribution width (RBC) [Ratio] 13.2 % Normal 11.8-14.4 [facility] Comment on above: Performed By: #### C DP, BMP, LIPR, MG, GLYHGB #### [place] [address] Relay Checker: Zaki Humphries MD Hematocrit (Bld) [Volume fraction] 47.0 % Normal 36.3-47.1 [facility] Comment on above: Performed By: #### C DP, BMP, LIPR, MG, GLYHGB #### [facility] [address] [place] [address] Relay Checker: Zaki Humphries MD Hemoglobin (Bld) [Mass/Vol] 14.8 g/dL Normal 11.9-15.1 [facility] Comment on above: Performed By: #### C DP, BMP, LIPR, MG, GLYHGB #### [address] [address] Relay Checker: Zaki Humphries MD Immature granulocytes (Bld) [#/Vol] 1 % High 0 [facility] Comment on above: Performed By: #### C DP, BMP, LIPR, MG, GLYHGB #### [address] [address] Relay Checker: Zaki Humphries MD Lymphocytes (Bld) [#/Vol] 4.10 10*3/uL High 1.10-3.70 [facility] Comment on above: Performed By: #### C DP, BMP, LIPR, MG, GLYHGB #### [place] [address] Relay Checker: Zaki Humphries MD Lymphocytes/100 WBC (Bld) 26 % Normal 24-43 [facility] Comment on above: Performed By: #### C DP, BMP, LIPR, MG, GLYHGB #### [place] [address] Relay Checker: Zaki Humphries MD MCH (RBC) [Entitic mass] 29.6 pg Normal 25.2-33.5 [facility] Comment on above: Performed By: #### C DP, BMP, LIPR, MG, GLYHGB #### [place] [address] Relay Checker: Zaki Humphries MD MCHC (RBC) [Mass/Vol] 31.5 g/dL Normal 28.4-34.8 [facility] Comment on above: Performed By: #### C DP, BMP, LIPR, MG, GLYHGB #### [address] [address] Relay Checker: Zaki Humphries MD MCV (RBC) [Entitic vol] 94.0 fL Normal 82.6-102.9 [facility] Comment on above: Performed By: #### C DP, BMP, LIPR, MG, GLYHGB #### [address] [address] Relay Checker: Zaki Humphries MD Monocytes (Bld) [#/Vol] 1.05 10*3/uL Normal 0.10-1.20 [facility] Comment on above: Performed By: #### C DP, BMP, LIPR, MG, GLYHGB #### [address] [address] Relay Checker: Zaki Humphries MD Monocytes/100 WBC (Bld) 7 % Normal 3-12 [facility] Comment on above: Performed By: #### C DP, BMP, LIPR, MG, GLYHGB #### [address] [address] Relay Checker: Zaki Humphries MD Neutrophil (Seg) 64 % Normal 36-65 [facility] Comment on above: Performed By: #### C DP, BMP, LIPR, MG, GLYHGB #### [address] [address] Relay Checker: Zaki Humphries MD NRBC Automated 0.0 per 100 WBC Normal 0.0 [facility] Comment on above: Performed By: #### C DP, BMP, LIPR, MG, GLYHGB #### [address] [address] Relay Checker: Zaki Humphries MD Platelet mean volume (Bld) [Entitic vol] 9.3 fL Normal 8.1-13.5 [facility] Comment on above: Performed By: #### C DP, BMP, LIPR, MG, GLYHGB #### [address] [address] Relay Checker: Zaki Humphries MD Platelets (Bld) [#/Vol] 296 10*3/uL Normal 138-453 [facility] Comment on above: Performed By: #### C DP, BMP, LIPR, MG, GLYHGB #### [address] [address] Relay Checker: Zaki Humphries MD RBC (Bld) [#/Vol] 5.00 10*6/uL Normal 3.95-5.11 [facility] Comment on above: Performed By: #### C DP, BMP, LIPR, MG, GLYHGB #### [address] [address] Relay Checker: Zaki Humphries MD WBC (Bld) [#/Vol] 15.9 10*3/uL High 3.5-11.3 [facility] Comment on above: Performed By: #### C DP, BMP, LIPR, MG, GLYHGB #### [address] [address] Relay Checker: Zaki Humphries MD Auto Diff Performed NOT REPORTED Normal [facility] Comment on above: Performed By: #### C DP, BMP, LIPR, MG, GLYHGB #### [address] [address] Relay Checker: Zaki Humphries MD Platelets (Bld) [#/Vol] NOT REPORTED Normal [facility] Comment on above: Performed By: #### C DP, BMP, LIPR, MG, GLYHGB #### [address] [address] Relay Checker: Zaki Humphries MD RBC morphology finding Nom (Bld) NOT REPORTED Normal [facility] Comment on above: Performed By: #### C DP, BMP, LIPR, MG, GLYHGB #### [address] [address] Relay Checker: Zaki Humphries MD WBC Morphology NOT REPORTED Normal [facility] Comment on above: Performed By: #### C DP, BMP, LIPR, MG, GLYHGB #### [facility] [address] [place] [address] Relay Checker: Zaki Humphries MD Drug Scr, Abuse, Uron 2019 Amphetamine(s),Ur Negative Normal NEG [facility] Comment on above: Result Comment: (Positive cutoff 1000 ng/mL) Performed By: #### D AU #### [address] [address] Relay Checker: Zaki Humphries MD Barbiturate(s),Ur Negative Normal NEG [facility] Comment on above: Result Comment: (Positive cutoff 200 ng/mL) Performed By: #### D AU #### [address] [address] Relay Checker: Zaki Humphries MD Base excess Calc (Bld) [Moles/Vol] Negative Normal NEG [facility] Comment on above: Result Comment: (Positive cutoff 300 ng/mL) Performed By: #### D AU #### [address] [address] Relay Checker: Zaki Humphries MD Benzodiazepine(s) Negative Normal NEG [facility] Comment on above: Result Comment: (Positive cutoff 200 ng/mL) Performed By: #### D AU #### [facility] [address] [place] [address] Relay Checker: Zaki Humphries MD Cannabinoid(s),Ur Negative Normal NEG [facility] Comment on above: Result Comment: (Positive cutoff 50 ng/mL) Performed By: #### D AU #### [facility] [address] [place] [address] Relay Checker: Zaki Humphries MD Interpretive Info Assay provides medic al screening only. The absence of expected drug(s) and/or Normal [facility] Comment on above: Result Comment: meta bolite(s) may indicate diluted or adulterated urine, limitations of testing or timing of collection. Testing for legal purposes should be confirmed by another method. To request confirmation of test result, please call the lab within 7 days of sample submission. Performed By: #### D AU #### [address] [address] Relay Checker: Zaki Humphries MD Methadone Ql (U) Negative Normal NEG [facility] Comment on above: Result Comment: (Positive cutoff 300 ng/mL) Performed By: #### D AU #### [address] [address] Relay Checker: Zaki Humphries MD Opiate(s), Ur Negative Normal NEG [facility] Comment on above: Result Comment: (Positive cutoff 300 ng/mL) Performed By: #### D AU #### [address] [address] Relay Checker: Zaki Humphries MD Oxycodone, Urine Negative Normal NEG [facility] Comment on above: Result Comment: (Positive cutoff 100 ng/mL) Performed By: #### D AU #### [address] [address] Relay Checker: Zaki Humphries MD Phencyclidine, Ur Negative Normal NEG [facility] Comment on above: Result Comment: (Positive cutoff 25 ng/mL) Performed By: #### D AU #### [address] [address] Relay Checker: Zaki Humphries MD EEG video monitoringon 05-22 Meño Reyez MD 05/23/2019 9:31 PM LONG-TERM EEG-VIDEO MONITORING CLINICAL NEUROPHYSIOLOGY LABORATORY DEPARTMENT OF NEUROLOGY [facility] Patient: Suly Huffman Age: 58 y.o. Referring Physician: No ref. provider found History: The patient is a 58 y.o. female who presented breakthrough seizure/encephalopathy . This long-term video-EEG monitoring study was performed to determine the nature of the patient's clinical events. The patient is on neuroactive medications. Suly Farmer Nathanael Current Facility-Administered Medications Medication Dose Route Frequency Provider Last Rate Last Dose benzonatate (TESSALON) capsule 100 mg 100 mg Oral TID PRN Sandra Lock APRN - PRINTER'S ASSISTANT 100 mg at 05/23/19 1012 fluticasone (FLONASE) 50 MCG/ACT nasal spray 1 spray 1 spray Each Nostril Daily Sandra Lock APRN - PRINTER'S ASSISTANT 1 spray at 05/23/19 1012 levETIRAcetam (KEPPRA) tablet 500 mg 500 mg Oral BID Bettie Horn, sodium chloride flush 0.9 % injection 10 mL 10 mL Intravenous PRN Sandra Lock APRN - PRINTER'S ASSISTANT sodium chloride flush 0.9 % injection 10 [...] mg 4 mg Intravenous Q6H PRN Bettie Horn, DO atorvastatin (LIPITOR) tablet 40 mg 40 mg Oral Nightly Bettie Horn DO 40 mg at 05/22/19 2210 labetalol (NORMODYNE;TRANDATE) injection syringe 10 mg 10 mg Intravenous Q10 Min PRN Bettie Justina, DO hydrALAZINE (APRESOLINE) injection 10 mg 10 mg Intravenous Q6H PRN Bettie Justina, DO 0.9 % sodium chloride infusion Intravenous Continuous Bettie Horn, DO 100 mL/hr at 05/23/19 0905 Technical [...] revealed no abnormalities. MEÑO REYEZ MD Diplomate, [place] [employer] and Neurology Diplomate, [place] Board of Clinical Neurophysiology Diplomate, [place] Board of Epilepsy Please note this is a preliminary report and updated daily. The final report will have a summary of behavior and electrographic findings with clinical correlation. [facility], [place] EKG 12 Leadon 05-23-2019 Atrial Rate 52 BPM [facility] P Mason 32 degrees [facility] P-R Interval 194 ms [facility], [place] Q-T Interval 468 ms [facility] QRS Duration 86 ms [facility] QTc Calculation (Bazett) 435 ms [facility] R Mason -30 degrees [facility], [place] T Mason -5 degrees [facility], [place] Ventricular Rate 52 BPM [facility], [place] Sinus bradycardia Le ft axis deviation Abnormal ECG No previous ECGs available [facility] [facility], [facility] Incoming E kg Results From [email or web address] 05/23/2019 2:16 PM EDT Sinus bradycardia Left axis deviation Abnormal ECG No previous ECGs available [place] HEMOGLOBIN A1Con 05-23-2019 Glucose [Mass/Vol] 111 mg/dL [place] Comment on above: The ADA and AACC rec ommend providing the estimated average glucose result to permit better patient understanding of their HBA1c result. HbA1c (Bld) [Mass fraction] 5.5 % 4 - 6 % [place] Hemoglobin A1Con 05-23-2019 HbA1c (Bld) [Mass fraction] 5.5 % Normal 4.0-6.0 [facility] Comment on above: Performed By: #### C DP, BMP, LIPR, MG, GLYHGB #### [facility] [address] [place] [address] [phone] Relay Checker: Zaki Humphries MD HbA1c (Bld) [Mass fraction] 111 mg/dL Normal [facility] Comment on above: Result Comment: The ADA and AACC recommend providing the estimated average glucose result to permit better patient understanding of their HBA1c result. Performed By: #### C DP, BMP, LIPR, MG, GLYHGB #### [facility] [address] [place] [address] [phone] Relay Checker: Zaki Humphries MD LIPID PANELon 05-23-2019 Cholesterol [Mass/Vol] 150 mg/dL <200 [place] Comment on above: Cholesterol Guidelines: <200 Desirable 200-240 Borderline >240 Undesirable Cholesterol in HDL [Mass/Vol] 31 mg/dL Low >40 [place] Comment on above: HDL Guidelines: <40 Undesirable 40-59 Borderline >59 Desirable Cholesterol in LDL [Mass/Vol] 74 mg/dL 0 - 130 mg/dL [place] Comment on above: LDL Guidelines: <100 Desirable 100-129 Near to/above Desirable 130-159 Borderline >159 Undesirable Direct (measured) LDL and calculated LDL are not interchangeable tests. Cholesterol in VLDL [Mass/Vol] NOT REPORTED High 1 - 30 mg/dL [place] Cholesterol.total/Ch olesterol in HDL [Mass ratio] 4.8 {ratio} <5 [place] Triglyceride [Mass/Vol] 226 mg/dL High <150 [place] Comment on above: Triglyceride Guidelines: <150 Desirable 150-199 Borderline 200-499 High >499 Very high Based on AHA Guidelines for fasting triglyceride, December 2011. Lipid Profileon 05-23-2019 Cholesterol [Mass/Vol] 150 mg/dL Normal <200 [facility] Comment on above: Result Comment: Cholesterol Guidelines: <200 Desirable 200-240 Borderline >240 Undesirable Performed By: #### C DP, BMP, LIPR, MG, GLYHGB #### [facility] [address] [place] [address] [phone] Relay Checker: Zaki Humphries MD Cholesterol in HDL [Mass/Vol] 31 mg/dL Low >40 [facility] Comment on above: Result Comment: HDL Guidelines: <40 Undesirable 40-59 Borderline >59 Desirable Performed By: #### C DP, BMP, LIPR, MG, GLYHGB #### [facility] [address] [place] [address] [phone] Relay Checker: Zaki Humphries MD Cholesterol in LDL [Mass/Vol] 74 mg/dL Normal 0-130 [facility] Comment on above: Result Comment: LDL Guidelines: <100 Desirable 100-129 Near to/above Desirable 130-159 Borderline >159 Undesirable Direct (measured) LDL and calculated LDL are not interchangeable tests. Performed By: #### C DP, BMP, LIPR, MG, GLYHGB #### [facility] [address] [place] [address] Relay Checker: Zaki Humphries MD Cholesterol.total/Ch olesterol in HDL [Mass ratio] 4.8 {ratio} Normal <5 [facility] Comment on above: Performed By: #### C DP, BMP, LIPR, MG, GLYHGB #### [facility] [address] [place] [address] Relay Checker: Zaki Humphries MD Triglyceride [Mass/Vol] 226 mg/dL High <150 [facility] Comment on above: Result Comment: Triglyceride Guidelines: <150 Desirable 150-199 Borderline 200-499 High >499 Very high Based on AHA Guidelines for fasting triglyceride, December 2011. Performed By: #### C DP, BMP, LIPR, MG, GLYHGB #### [facility] [address] [place] [address] Relay Checker: Zaki Humphries MD Cholesterol in VLDL [Mass/Vol] NOT REPORTED Normal 04-14 [facility] Comment on above: Performed By: #### C DP, BMP, LIPR, MG, GLYHGB #### [facility] [address] [place] [address] Relay Checker: Zaki Humphries MD MAGNESIUMon 05-23-2019 Magnesium [Mass/Vol] 2.4 mg/dL 1.6 - 2 .6 mg/dL [place] MRSA DNA Probe, Nasalon MRSA, DNA, Nasal NEGATIVE: MRSA DNA n ot detected by nucleic acid amplification. NEGATIVE: MRSA DNA not detected by nucleic acid amplificati [place] Comment on above: Results should be used as an adjunct to nosocomial control efforts to identify patients needing enhanced precautions. The test is not intended to identify patients with staphylococcal infections. Results should not be used to guide or monitor treatment for MRSA infections. Specimen Description .NASAL SWAB [place] MRSA, DNA, Nasalon 0 MRSA, DNA, Nasal NEGATIVE: MRSA DNA n ot detected by nucleic acid amplification. Normal NMRSAA [facility] Comment on above: Result Comment: Results should be used as an adjunct to nosocomial control efforts to identify patients needing enhanced precautions. The test is not intended to identify patients with staphylococcal infections. Results should not be used to guide or monitor treatment for MRSA infections. Performed By: #### M RSANO ####[address] [address] Lab Director: Zaki Humphries MD Magnesiumon 05-23-2019 Magnesium [Mass/Vol] 2.4 mg/dL Normal 1.6-2.6 [facility] Comment on above: Performed By: #### C BC, BMP, MG ####[facility] [address] [place] [address] Lab Director: Zaki Humphries MD Magnesium [Mass/Vol] 2.4 mg/dL 1.6 - 2 .6 mg/dL [place] Magnesium [Mass/Vol] 2.4 mg/dL Normal 1.6-2.6 [facility] Comment on above: Performed By: #### C DP, BMP, LIPR, MG, GLYHGB #### [facility] [address] [place], [place] [phone] Relay Checker: Zaki Humphries MD Otheron 05-23-2019 Interpretation and review of laboratory results Abnormal [place] PROTIME-INRon 05-23-2019 INR Coag (PPP) [Relative time] 1.0 {INR} [place] Comment on above: Therapeutic Range: Moderate Anticoagulant Intensity: INR = 2.0-3.0 High Anticoagulant Intensity: INR = 2.5-3.5 PT Coag (PPP) [Time] 11 s [place] PTon 05-23-2019 INR Coag (PPP) [Relative time] 1.0 {INR} Normal [facility] Comment on above: Result Comment: Therapeutic Range: Moderate Anticoagulant Intensity: INR = 2.0-3.0 High Anticoagulant Intensity: INR = 2.5-3.5 Performed By: #### P TT, PT ####[facility] [address] [place] [address] Lab Director: Zaki Humphries MD PT Coag (PPP) [Time] 11.0 s Normal 9.0-12.0 [facility] Comment on above: Performed By: #### P TT, PT ####[facility] [address] [place] [address] Lab Director: Zaki Humphries MD Troponinon 05-23-2019 Troponin I.cardiac [Mass/Vol] 7 ng/L Normal 0-14 [facility] Comment on above: Result Comment: High Sensitivity Troponin values cannot be compared with other Troponin methodologies. Patients with high levels of Biotin oral intake (i.e >5mg/day) may have falsely decreased Troponin levels. Samples collected within 8 hours of biotin intake may require additional information for diagnosis. Performed By: #### T ROPI ####[facility] [address] [place] [address] Lab Director: Zaki Humphries MD Troponin I.cardiac [Mass/Vol] NOT REPORTED Normal <0.03 [facility] Comment on above: Performed By: #### T ROPI ####[facility] [address] [place] [address] Lab Director: Zaki Humphries MD Troponin I.cardiac [Mass/Vol] NOT REPORTED [place] Troponin T.cardiac [Mass/Vol] NOT REPORTED <0.03 ng/mL [place] Troponin, High Sensitivity 7 ng/L 0 - 14 ng/L [place] Comment on above: High Sensitivity Troponin values cannot be compared with other Troponin methodologies. Patients with high levels of Biotin oral intake (i.e >5mg/day) may have falsely decreased Troponin levels. Samples collected within 8 hours of biotin intake may require additional information for diagnosis. Troponin I.cardiac [Mass/Vol] 7 ng/L Normal 0-14 [facility] Comment on above: Result Comment: High Sensitivity Troponin values cannot be compared with other Troponin methodologies. Patients with high levels of Biotin oral intake (i.e >5mg/day) may have falsely decreased Troponin levels. Samples collected within 8 hours of biotin intake may require additional information for diagnosis. Performed By: #### T ROPI ####[facility] [address] [place] [address] Lab Director: Zaki Humphries MD Troponin I.cardiac [Mass/Vol] NOT REPORTED Normal [facility] Comment on above: Performed By: #### T ROPI ####[facility] [address] [place] [address] Lab Director: Zaki Humphries MD Troponin I.cardiac [Mass/Vol] NOT REPORTED [place] Troponin T.cardiac [Mass/Vol] NOT REPORTED <0.03 ng/mL [place] Troponin, High Sensitivity 7 ng/L 0 - 14 ng/L [place] Comment on above: High Sensitivity Troponin values cannot be compared with other Troponin methodologies. Patients with high levels of Biotin oral intake (i.e >5mg/day) may have falsely decreased Troponin levels. Samples collected within 8 hours of biotin intake may require additional information for diagnosis. VL TRANSCRANIAL DOPPLER COMP LETEon 05-23-2019 [facility], [facility] Incoming Cardio Results From [facility] - 05/23/2019 5:15 PM EDT [facility] Vascular Transcranial Procedure Patient Name NATHANAEL Date of Study 05/23/2019 SULY Farmer Date of 1960 Gender Female Age 58 year(s) Race Room Number 0523 Corporate ID [id number] # Patient Acct [id number] # MR # [id number] Device Test Engineer Carole Hooks, [place], [facility] Interpreting Gunnar Morgan Physician Referring Referring Physician SANDRA LOCK APRN-PRINTER'S ASSISTANT Nurse Practitioner Additional Comments CLASSIFICATION OF VASOSPASM [...] 85.1 Mid AMAIRANI: 83.9 Mid AMAIRANI: 105 LICENSED PRACTICAL VOCATIONAL NURSE: 32.3 LICENSED PRACTICAL VOCATIONAL NURSE: 22.7 T ICA: 40.4 T ICA: 37.7 [...] ! + +-------+- ------+--------+------ -+-------+--------+--- --------- + [facility]- [place], [facility] Vascular Transcranial Procedure Patient Name NATHANAEL Date of Study 05/23/2019 SULY Farmer Date of 1960 Gender Female Age 58 year(s) Race Room Number 0523 Corporate ID [id number] # Patient Acct [id number] # MR # [id number] Device Test Engineer Carole Hooks, [place], [facility] Interpreting Gunnar Morgan Physician Referring Referring Physician SANDRA LOCK APRN-PRINTER'S ASSISTANT Nurse Practitioner Additional Comments CLASSIFICATION OF VASOSPASM [...] 85.1 Mid AMAIRANI: 83.9 Mid AMAIRANI: 105 LICENSED PRACTICAL VOCATIONAL NURSE: 32.3 LICENSED PRACTICAL VOCATIONAL NURSE: 22.7 T ICA: 40.4 T ICA: 37.7 [...] ! ! + +-------+- ------+--------+------ -+-------+--------+--- ---------+ [facility]- [place], [place] CBC AUTO DIFFon 05-22-2019 Basophils (Bld) [#/Vol] 0.1 103/ul Normal 0.0-0.1 [facility] Comment on above: Performed By: #### C BC #### [facility] [address] [place] [address] Piotr Marilee Basophils/100 WBC (Bld) 0.6 % Normal 0.2-2.0 [facility] Comment on above: Performed By: #### C BC #### [facility] [address] [place] [address] Piotr Marilee Eosinophils (Bld) [#/Vol] 0.2 103/ul Normal 0.0-0.7 [facility] Comment on above: Performed By: #### C BC #### [facility] [address] [place], [place] [address] Piotr Marilee Eosinophils/100 WBC (Bld) 1.5 % Normal 0.9-7.0 [facility] Comment on above: Performed By: #### C BC #### [facility] [address] [place], [place] [address] Piotr Marilee Erythrocyte distribution width (RBC) [Ratio] 13.2 % Normal 11.0-15.0 [facility] Comment on above: Performed By: #### C BC #### [facility] [address] [place] [address] Piotr Marilee Hematocrit (Bld) [Volume fraction] 47.0 % Normal 36.0-48.0 [facility] Comment on above: Performed By: #### C BC #### [facility] [address] [place], [place] [address] Piotr Marilee Hemoglobin (Bld) [Mass/Vol] 15.5 g/dL Normal 12.0-16.0 [facility] Comment on above: Performed By: #### C BC #### [facility] [address] [place], [place] [address] Piotr Marilee IG # 0.10 10e3/ul Critically high 0.00-0.03 [facility] Comment on above: Performed By: #### C BC #### [facility] [address] [place] [id number] Piotr Marilee IG % 0.8 % Critically high 0.0-0.5 [facility] Comment on above: Performed By: #### C BC #### [facility] [address] [place], [place] [address] Piotr Marilee Lymphocytes (Bld) [#/Vol] 3.3 103/ul Normal 1.2-3.8 [facility] Comment on above: Performed By: #### C BC #### [facility] [address] [place], [place] [address] Piotr Marilee Lymphocytes/100 WBC (Bld) 25.7 % Normal 20.5-60.0 [facility] Comment on above: Performed By: #### C BC #### [facility] [address] [place], [place] [address] Piotr Marilee MANUAL DIFF REQ NO Normal [facility] Comment on above: Performed By: #### C BC #### [facility] [address] [place], [place] [address] Piotr Marilee MCH (RBC) [Entitic mass] 29.5 pg Normal 26.7-34.0 [facility] Comment on above: Performed By: #### C BC #### [facility] [address] [place], [place] [address] Piotr Marilee MCHC (RBC) [Mass/Vol] 33.0 g/dL Normal 29.9-35.2 [facility] Comment on above: Performed By: #### C BC #### [facility] [address] [place], [place] [address] Piotr Marilee MCV (RBC) [Entitic vol] 89.5 fL Normal 81.0-99.0 [facility] Comment on above: Performed By: #### C BC #### [facility] [address] [place], [place] [address] Piotr Marilee Monocytes (Bld) [#/Vol] 1.0 103/ul Critically high 0.3-0.8 [facility] Comment on above: Performed By: #### C BC #### [facility] [address] [place], [place] [address] Piotr Marilee Monocytes/100 WBC (Bld) 7.5 % Normal 1.7-12.0 [facility] Comment on above: Performed By: #### C BC #### [facility] [address] [place] [address] Piotr Marilee Neutrophils (Bld) [#/Vol] 8.1 103/ul Critically high 1.4-6.5 [facility] Comment on above: Performed By: #### C BC #### [facility] [address] [place], [place] [address] Piotr Marilee Neutrophils/100 WBC (Bld) 63.9 % Normal 43.0-75.0 [facility] Comment on above: Performed By: #### C BC #### [facility] [address] [place] [address] Piotr Marilee Platelet mean volume (Bld) [Entitic vol] 9.3 fL Critically low 9.5-13.5 [facility] Comment on above: Performed By: #### C BC #### [facility] [address] [place] [address] Piotr Marilee Platelets (Bld) [#/Vol] 319 103/ul Normal 150-450 [facility] Comment on above: Performed By: #### C BC #### [facility] [address] [place] [address] Piotr Marilee RBC (Bld) [#/Vol] 5.25 106/ul Normal 4.20-5.40 [facility] Comment on above: Performed By: #### C BC #### [facility] [address] [place] [address] Piotr Marilee WBC (Bld) [#/Vol] 12.7 103/ul Critically high 4.0-11.0 [facility] Comment on above: Performed By: #### C #### [facility] [address] [place] [id number] [address] HEAD WO CONon 05-22-2019 [...] time on May 22, 2019. Normal [facility] CTA HEAD NECK W CONTRASTon 0 [...] John Jordan MD 05/22/19 Final result Normal [facility] [place], [facility] Incoming Radiant Results From [employer] - 05/22/2019 8:26 PM EDT EXAMINATION: CTA [...] occlusion detected within the head or neck. [facility], [place] EXAMINATION: CTA OF THE HEAD AND NECK [...] See separately dictated noncontrast head CT report. [place], [place] No cerebral aneurysm or vascular malformation visualized. No flow limiting stenosis or large vessel occlusion detected within the head or neck. [place], [place] DRUG SCREEN MULTI URINEon Amphetamine Screen, Ur Negative NEGATIVE [place] Comment on above: (Positive cutoff 1000 ng/mL) Barbiturate Screen, Ur Negative NEGATIVE [place] Comment on above: (Positive cutoff 200 ng/mL) Benzodiazepine Screen, Urine Negative NEGATIVE [place] Comment on above: (Positive cutoff 200 ng/mL) Buprenorphine Urine NOT REPORTED NEGATIVE [place], [place] Cannabinoid Scrn, Ur Negative NEGATIVE [place], [place] Comment on above: (Positive cutoff 50 ng/mL) Cocaine Metabolite, Urine Negative NEGATIVE [place] Comment on above: (Positive cutoff 300 ng/mL) MDMA, Urine NOT REPORTED NEGATIVE [place], [place] Methadone Screen, Urine Negative NEGATIVE [place] Comment on above: (Positive cutoff 300 ng/mL) Methamphetamine, Urine NOT REPORTED NEGATIVE [place] Opiates, Urine Negative NEGATIVE [place], [place] Comment on above: (Positive cutoff 300 ng/mL) Oxycodone Screen, Ur Negative NEGATIVE [place] Comment on above: (Positive cutoff 100 ng/mL) Phencyclidine, Urine Negative NEGATIVE [place] Comment on above: (Positive cutoff 25 ng/mL) Propoxyphene, Urine NOT REPORTED NEGATIVE [place], [place] Test Information Assay provides medic al screening only. The absence of expected drug(s) and/or metabolite(s) may indicate diluted or adulterated urine, limitations of testing or timing of collection. [place], [place] Comment on above: Testing for legal pu rposes should be confirmed by another method. To request confirmation of test result, please call the lab within 7 days of sample submission. Tricyclic Antidepressants, Urine NOT REPORTED NEGATIVE [place] Drug Scr, Abuse, Uron 2019 Buprenorphrine, Ur NOT REPORTED Normal NEG [facility] Comment on above: Performed By: #### D AU #### [facility] [address] [place] [address] Relay Checker: Zaki Humphries MD MDMA, Urine NOT REPORTED Normal NEG [facility] Comment on above: Performed By: #### D AU #### [facility] [address] [place] [address] Relay Checker: Zaki Humphries MD Methamphetamine, Ur NOT REPORTED Normal NEG [facility] Comment on above: Performed By: #### D AU #### [address] [address] Relay Checker: Zaki Humphries MD Propoxyphene,Urine NOT REPORTED Normal NEG [facility] Comment on above: Performed By: #### D AU #### [facility] [address] [place] [address] Relay Checker: Zaki Humphries MD Tricyclic antidepressants Screen Ql (U) NOT REPORTED Normal NEG [facility] Comment on above: Performed By: #### D AU #### [address] [address] Relay Checker: Zaki Humphries MD ER URINE PROFILEon 0 Bilirubin [Mass/Vol] Negative Normal NEGATIVE [facility] Comment on above: Performed By: #### E RUR ####[facility] [address] [place] BLOOD Negative Normal NEGATIVE [facility] Comment on above: Performed By: #### E RUR ####[facility] [address] [place] Clarity (U) CLEAR Normal [facility] Comment on above: Performed By: #### E RUR ####[facility] [address] [place] Color (U) LT. YELLOW Normal YELLOW [facility] Comment on above: Performed By: #### E RUR ####[facility] [address] [place] [address] Mar[place] ERUAHD A micrscopic examination will be performed if indicated. Normal [facility] Comment on above: Performed By: #### E RUR ####[facility] [address] [place] [address] [place] Glucose [Mass/Vol] Negative Normal NEGATIVE [facility] Comment on above: Performed By: #### E RUR ####[facility] [address] [place] [address] [place] Ketones Ql (U) Negative Normal NEGATIVE The [facility] [place] Comment on above: Performed By: #### E RUR ####[facility] [address] [place] [address] [place] Nitrite Ql (U) Negative Normal NEGATIVE The [facility] [place] Comment on above: Performed By: #### E RUR ####[facility] [address] [place] [address] [place] pH (Bld) 6.0 Normal 5-9 [facility] Comment on above: Performed By: #### E RUR ####[facility] [address] [place] [address] [place] Protein (U) [Mass/Vol] Negative Normal [facility] Comment on above: Performed By: #### E RUR ####[facility] [address] [place] [address] [place] SPEC GRAVITY 1.010 Normal 1.005-<=1.025 [facility] Comment on above: Performed By: #### E RUR ####[facility] [address] [place] [address] Mar[place] UR MICRO IND NOT INDICATED Normal [facility] Comment on above: Performed By: #### E RUR ####[facility] [address] [place] [address] [place] Urobilinogen Qn (U) 0.2 EU/dl Normal The [facility] Comment on above: Performed By: #### E RUR ####[facility] [address] [place], [place] [address]Yufofo Marilee WBC (Bld) [#/Vol] Negative Normal NEGATIVE The [facility] Comment on above: Performed By: #### E RUR ####[facility] [address] [place] [id number] Mar[place] LACTATE/LACTIC ACIDon 2019 Lactate [Moles/Vol] 0.9 mmol/L Normal 0.7-2.0 [facility] Comment on above: Performed By: #### L ACT ####[facility] [address] MRI BRAIN W WO CONTRASTon MRI BRAIN [...] Filiberto Chamberlain MD 05/22/19 Final result Normal [facility], [facility] Incoming Radiant Results From [employer] - 05/22/2019 8:06 PM EDT EXAMINATION: MRI [...] discussed with Dr. Iqbal at 7:56 p.m. [place] Subarachnoid hemorrhage central sulcus on the [...] discussed with Dr. Iqbal at 7:56 p.m. [place] EXAMINATION: MRI OF THE BRAIN WITHOUT [...] signal within the mastoid air cells bilaterally. [place], [place] MRSA, DNA, Nasalon 0 Specimen Description .NASAL SWAB Normal [facility] Comment on above: Performed By: #### M RSANO ####[facility] [address] [place] [address] Lab Director: Zaki Humphries MD PROF 14(COMP METB)on 020 Albumin [Mass/Vol] 3.8 g/dL Normal 3.5-5.0 The [facility] [place] Comment on above: Performed By: #### C MP, TROP, TSH #### [facility] [address] [place], [place] [address] Piotr Marilee Albumin/Globulin [Mass ratio] 0.9 {ratio} Normal [facility] Comment on above: Performed By: #### C MP, TROP, TSH #### [facility] [address] [place] [address] Piotr Marilee ALP [Catalytic activity/Vol] 59 U/L Normal 38-126 [facility] Comment on above: Performed By: #### C MP, TROP, TSH #### [facility] [address] [place] [address] Ipotr Marilee ALT [Catalytic activity/Vol] 64 U/L Critically high 9-52 [facility] Comment on above: Performed By: #### C MP, TROP, TSH #### [facility] [address] [place] [address] Piotr Marilee Anion gap [Moles/Vol] 15.5 mmol/L Normal [facility] Comment on above: Performed By: #### C MP, TROP, TSH #### [facility] [address] [place] [address] Piotr Marilee AST [Catalytic activity/Vol] 33 U/L Normal 14-36 [facility] Comment on above: Performed By: #### C MP, TROP, TSH #### [facility] [address] [place] [address] Piotr Marilee Bilirubin Ql (U) 0.3 mg/dL Normal 0.2-1.3 The [facility] Comment on above: Performed By: #### C MP, TROP, TSH #### [facility] [address] [place] [id number] Piotr Marilee Calcium [Mass/Vol] 9.7 mg/dL Normal 8.4-10.2 The [facility] [place] Comment on above: Performed By: #### C MP, TROP, TSH #### [facility] [address] [place] [address] Piotr Marilee Chloride [Moles/Vol] 100 mmol/L Normal 98-107 [facility] Comment on above: Performed By: #### C MP, TROP, TSH #### [facility] [address] [place] [address] Piotr Marilee CO2 [Moles/Vol] 27.2 mmol/L Normal 22.0-30.[address] [facility] Comment on above: Performed By: #### C MP, TROP, TSH #### [facility] [address] [place] [address] Piotr Marilee Creatinine [Mass/Vol] 0.80 mg/dL Normal 0.52-1.04 [facility] Comment on above: Performed By: #### C MP, TROP, TSH #### [facility] [address] [place] [address] Piotr Marilee EGFR-AF AUSTRALIAN >60 Normal >=[address] [facility] Comment on above: Performed By: #### C MP, TROP, TSH #### [facility] [address] [place] [address] Piotr Marilee EGFR-NON AF AUSTRALIAN >60 Normal >=60 [facility] Comment on above: Performed By: #### C MP, TROP, TSH #### [facility] [address] [place] [address] Piotr Marilee Globulin (S) [Mass/Vol] 4.2 g/dL Normal [facility] Comment on above: Performed By: #### C MP, TROP, TSH #### [facility] [address] [place] [address] Piotr Marilee Glucose [Mass/Vol] 97 mg/dL Normal 74-106 [facility] Comment on above: Performed By: #### C MP, TROP, TSH #### [facility] [address] [place] [address] Piotr Marilee Potassium [Moles/Vol] 3.7 mmol/L Normal 3.4-5.0 [facility] Comment on above: Performed By: #### C MP, TROP, TSH #### [facility] [address] [place] [address] Piotr Marilee Protein [Mass/Vol] 8.0 g/dL Normal 6.1-8.2 The [facility] [place] Comment on above: Performed By: #### C J CARLOS TROP, TSH #### [facility] [address] [place] [address] Piotr Marilee Sodium [Moles/Vol] 139 mmol/L Normal 137-145 The [facility] [place] Comment on above: Performed By: #### C J CARLOS TROP, TSH #### [facility] [address] [place] [address] Piotr Marilee Urea nitrogen [Mass/Vol] 20.0 mg/dL Critically high 7.0-17.0 [facility] Comment on above: Performed By: #### C ANGELA WHITMAN, TSH #### [facility] [address] [place] [address] Piotr Marilee Urea nitrogen/Creatinine [Mass ratio] 25.0 mg/mg Normal [facility] Comment on above: Performed By: #### C J CARLOS TROP, TSH #### [facility] [address] [place] [address] Piotr Marilee PROTIMEon 05-22-2019 INR Coag (PPP) [Relative time] 1.07 {INR} Normal [facility] Comment on above: Performed By: #### P T, PTT #### [facility] [address] [place] [address] Piotr Marilee PT Coag (PPP) [Time] SEE BELOW Normal [facility] Comment on above: Result Comment: DUONG RED INR: 2.0 - 3.0 CONDITIONS NOT LISTED BELOW 2.5 - 3.5 FOR PROSTHETIC HEART VALVE REPLACEMENT 2.5 - 3.5 RECURRENT THROMBOSIS Performed By: #### P T, PTT #### [facility] [address] [place], [place] [address] Piotr Marilee PT Coag (PPP) [Time] 11.1 s Normal 9.0-11.6 [facility] Comment on above: Performed By: #### P T, PTT #### [facility] [address] [place] [address] Piotr Marilee PT Coag (PPP) [Time] PLEASE NOTE: NORMAL RANGE CHANGE 12-01-2013 DUE TO REAGENT LOT CHANGE Normal [facility] Comment on above: Performed By: #### P T, PTT #### [facility] [address] [place] [address] Piotr Hunt PTTon 05-22-2019 aPTT Coag (Bld) [Time] PLEASE NOTE: NORMAL RANGE CHANGE 02-07-2015 DUE TO REAGENT LOT CHANGE Normal [facility] Comment on above: Performed By: #### P T, PTT #### [facility] [address] [place] [address] Piotr Hunt aPTT Coag (Bld) [Time] 23.6 s Normal 22.3-36.2 [facility] Comment on above: Performed By: #### P T, PTT #### [facility] [address] [place] [address] Piotr Hunt TROPONIN - Ion 05-22-2019 Troponin I.cardiac [Mass/Vol] ng/mL Normal <=0.034 [facility] Comment on above: Performed By: #### C MP, TROP, TSH #### [facility] [address] [place] [address] Piotr Hunt Troponin I.cardiac [Mass/Vol] SEE BELOW Normal [facility] Comment on above: Result Comment: <0.0 34 ng/ml NEGATIVE 0.034-0.119 INDETERMINATE 0.120 AMI CUT OFF Performed By: #### C MP, TROP, TSH #### [facility] [address] [place] [address] Piotr Hunt TSHon 05-22-2019 TSH Qn 3.019 uIU/mL Normal 0.470-4.680 The [facility] Comment on above: Performed By: #### C MP, TROP, TSH ####[facility] [address] [place] [address]Gerelías Hunt TSH Qn SEE BELOW Normal [facility] Comment on above: Result Comment: <0.3 4 UIU/ml HYPERTHYROID 0.34-5.60 UIU/ml EUTHYROID >5.60 UIU/ml HYPOTHYROID Performed By: #### C MP, TROP, TSH ####[facility] [address] [place], [place] [address]LhylbePiotr Hunt XR CHEST 2 Von 05-22-2019 XR CHEST 2 V EXAM: XR CHEST 2 V HISTORY: COUGH COMPARISON: None. TECHNIQUE: 2 views of the chest are submitted for review. FINDINGS: The heart size is normal. Lungs are clear. No focal consolidation, pneumothorax or pleural effusion is seen. The osseous structures appear unremarkable. IMPRESSION: No radiographic evidence for acute cardiopulmonary disease. Normal [facility] CONSULTATIONon 03-28-2019 CONSULTATION CONSULTATION PAIN MANAGEMENT [...] would like to proceed with Motrin 800 [id number]-ypzlvbb as this is more helpful than the [...] the office today. 3. We will add [place] 5/325 mg 1 p.o. b.i.d. p.r.n. pain. She is currently not on a opioid medication at this time. She last utilized tramadol in the past at a previous pain clinic and stated she had gastrointestinal issues as in nausea after taking the tramadol. The patient has been advised of the risks and benefits of the [place] medication. OARRS report is reviewed and no [...] her pain. Dictated by Yris Goins APRN [facility] Signed and Approved by: YRIS GOINS 04/04/2019 17:00:00 Normal [facility] CONSULTATIONon 12-20-2018 CONSULTATION CONSULTATION PAIN MANAGEMENT Consultation [...] upon her pain. The patient has failed ejxm-khk-uyxewpf antiinflammatories as well as Tylenol in regards [...] progress check. Dictated by Yris Goins APRN [facility] Signed and Approved by: YRIS GOINS 12/27/2018 15:18:00 Normal [facility] CONSULTATIONon 09-20-2018 CONSULTATION CONSULTATION PAIN MANAGEMENT Consultation [...] pain are sitting, baclofen 10 mg, and zict-cuf-jdfsguu medication Tylenol and Motrin. On August 31, [...] her pain. Dictated by Yris Goins APRN [facility] Signed and Approved by: YRIS GOINS 09/20/2018 13:40:[address] [facility] 08-17-2018 CONSULTATION CONSULTATION PAIN MANAGEMENT Consultation Date: [...] and would like to proceed. cc:Dr. David [facility] Signed and Approved by: DR SELINA WADDELL 08/24/2018 08:28:00 Normal [facility] MG MAMM SCREEN LUIS W CADon 0 07-29-2018 MG MAMM SCREEN LUIS W CAD Patient: SULY HUFFMAN Exam Date: 07/29/2018 : 1960 Gender:F Ordering : MRS. GARFIELD ROJO MAGDALENO Admission #: [id number] Family : Order #: [id number] CLICK HERE TO VIEW EXAM RADIOLOGY REPORT [...] lung cancer at age 76. LOCATION: [facility] BREAST COMPOSITION: Heterogeneously dense, which may [...] Reza MD on 07/29/2018 at 16:46 Normal [facility] Vital Signs Date Time Vital Sign Value Performing Clinician Facility 05-27-2019 15:45-0400 Body Temperature 97.5 [degF] [facility], [place] 05-27-2019 15:45-0400 BP Diastolic 70 mm[Hg] Yogesh [facility] , [place] 05-27-2019 15:45-0400 BP Systolic 155 mm[Hg] Yogesh [facility] , [place] 05-27-2019 15:45-0400 Pulse (Heart Rate) 58 /min Yogesh [place] 05-27-2019 15:45-0400 Pulse Oximetry 99 % [place] 05-27-2019 15:45-0400 Respiratory Rate 16 /min [facility] include 234 beds at the [facility], [place] 05-26-2019 14:09-0400 Body mass index (BMI) [Ratio] 9 AU/mL [facility] Comment on above: Result Comment: [...] diagnosis. Performed By: #### D AU #### [employer] [address] [place] [address] Relay Checker: Zaki Humphries MD 05-22-2019 21:05-0400 BMI (Body Mass Index) 31.93 kg/m2 [place] 05-22-2019 21:05-0400 Body weight 95.25 kg [place], [place] 05-22-2019 21:05-0400 Height 172.7 cm [place] Encounters Encounter Date Encounter Type Care Provider Facility Start: 07-07-2023 End: 07-07-2023 ambulatory MELISSA MUJICA Not Available Start: 06-26-2023 End: 06-26-2023 ambulatory ELADIA DAVID Not Available Start: 06-08-2023 End: 06-08-2023 ambulatory BART LIZ Not Available Start: 06-05-2023 End: 06-05-2023 ambulatory Bart Agusto Facility:[facility] Start: 06-05-2023 End: 06-05-2023 ambulatory Bart Agusto Work Phone: [facility] Work Phone: Start: 06-05-2023 End: 06-05-2023 Departed Referred Bart Agusto Work Phone: [facility] Start: 05-04-2023 End: 05-04-2023 ambulatory BART AGUSTO Not Available Start: 03-26-2023 End: 03-26-2023 ambulatory BART AGUSTO Not Available Start: 02-18-2023 End: 02-19-2023 ambulatory WHIT Mikaela GODINEZ Not Available Start: 06-10-2019 End: 06-13-2019 Patient encounter procedure [facility] Start: 06-10-2019 End: 06-12-2019 Subsequent hospital visit by physician Ct 1 [facility] Comment on above: Subarachnoid hemorrh age (HCC) Vasculitis (HCC) Start: 05-22-2019 End: 05-27-2019 Evaluation and management of inpatient JOSE MICHAEL [facility] Start: 05-22-2019 End: 05-27-2019 Evaluation and management of inpatient Yogesh Rothman [facility] Phone: [facility] Comment on above: TIA (transient ische saroj attack) (Primary Dx); Subarachnoid hemorrhage (HCC); Subdural hematoma (HCC); SAH (subarachnoid hemorrhage) (HCC) Start: 05-22-2019 End: 05-22-2019 Patient encounter procedure ELADIA DAVID Facility:H1 Start: 05-17-2019 Patient encounter procedure SELINA S BAIRON Facility:H1 Start: 03-28-2019 End: 03-29-2019 Patient encounter procedure SELINA S BAIRON Facility:H1 Start: 12-20-2018 End: 12-21-2018 Patient encounter procedure SELINA WADDELL Facility:H1 Start: 11-30-2018 End: 11-30-2018 Patient encounter procedure SELINA S BAIRON Facility:H1 Start: 09-20-2018 End: 09-21-2018 Patient encounter [...] Radiologic exam ches t 2 views Nicolasa Heatherthanh Work Phone: Start: 05-27-2019 DISCHARGE PATIENT OSAMA [...] Basic metabolic pane l calcium total Cecilio Gage Work Phone: Start: 05-27-2019 Blood count complete [...] OSAMA ZAIDAT Start: 05-26-2019 Assay of magnesium Ceciloi Sherman Work Phone: Start: 05-26-2019 Basic metabolic pane l calcium total Cecilio Gage Work Phone: Start: 05-26-2019 Blood count complete [...] src gram/gi emsa stain bct fungi/cell Radha Swatara Work Phone: Start: 05-25-2019 Cell count misc body fluids w/differential count Radha Swatara Work Phone: Start: 05-25-2019 CSF DIFFERENTIAL Radha Swatara Work Phone: Start: 05-25-2019 Glucose body fluid o ther than blood Radha Swatara Work Phone: Start: 05-25-2019 Protein total xcpt refractometry ot src Radha Swatara Work Phone: Start: 05-25-2019 IR LUMBAR PUNCTURE F OR DIAGNOSIS Radha Swatara Work Phone: Start: 05-25-2019 Gluc bld gluc [...] 05-24-2019 Clotting inhibitors protein c activity Radha Swatara Work Phone: Start: 05-24-2019 Clotting inhibitors protein s free Radha Swatara Work Phone: Start: 05-24-2019 Glucose blood reagent [...] Radiologic exam ches t single view Radha Swatara Work Phone: Start: 05-24-2019 Acute hepatitis panel [...] Lion Work Phone: Start: 05-24-2019 C-reactive protein Jackbrenda Lion Work Phone: Start: 05-24-2019 Complement antigen e ach component [facility] Work Phone: Start: 05-24-2019 Flow cytometry cell surf marker techl only 1st [facility] Work Phone: Start: 05-24-2019 Fluorescent nonnfct agt antb screen ea antibody [facility] Work Phone: Start: 05-24-2019 GLOMERULAR BASEMENT MEMBRANE (GBM) ANTIBODY IGG [facility] Work Phone: Start: 05-24-2019 HIV REFLEX [facility] Work Phone: Start: 05-24-2019 Rheumatoid factor quantitative [facility] Work Phone: Start: 05-24-2019 Sedimentation rate r bc automated [facility] Work Phone: Start: 05-24-2019 INITIATE OXYGEN THER [...] AL VTE PROPHYLAXIS OSAMA ZAIDAT Start: 05-22-2019 BICYCLE TAXI DRIVER EVAL AND TREAT OSAM A ZAIDAT Start: [...] Start: 05-22-2019 VITAL SIGNS - NOTIFY MD PÉREZTRINI LOPEZNAVT Start: 05-22-2019 Ct angiography head w/contrast/noncontrast OSAMA ZAIDAT Start: 05-22-2019 Drug screen class list a Bettie Justina Work Phone: Start: 05-22-2019 Iadna s aureus methi cillin resist amp probe tq Marty Limon Work Phone: Start: 05-22-2019 Mri brain brain stem w/o w/contrast material OSAMA ZAIDAT Start: 05-22-2019 Speech and language therapy regime Bettie Horn Work Phone: Start: 05-22-2019 PATIENT STATUS (FROM ED OR OR/PROCEDURAL) OSATRINI LOPEZIDAT Start: 05-22-2019 TELEMETRY MONITORING OS AMA ZAIDAT Start: 05-22-2019 Ct angiography neck w/contrast/noncontrast Sandra Lock Work Phone: Start: 05-22-2019 IP CONSULT TO NEUROC RITICAL CARE OSAMA ZANAVT Start: 05-22-2019 IP CONSULT TO NEUROSURGERY OSAMA ZAIDAT Start: 05-22-2019 Mri brain brain stem w/o w/contrast material Sandra Lock Work Phone: Start: 05-22-2019 IP CONSULT TO TRAUMA SURGERY OSAMA ZANAVT Start: 05-22-2019 IP CONSULT TO ENDOVA SCULAR NEUROSURGERY OSAMA RIZWANAT Plan of Treatment Date Care Activity Detail Author Start: 10-03-2024 DTaP/Tdap/Td vaccine (2 - Td) DTaP/Tdap/Td vaccine (2 - Td) [place], [place] Start: 05-22-2022 Diabetes screen Diabetes screen [place], [place] Start: 05-26-2020 Creatinine monitoring Creatinine mon [place], [place] Start: 05-26-2020 Potassium monitoring Potassium monit oring [place] Start: 05-24-2020 Creatinine monitoring Creatinine mon [facility], [place] Start: 05-24-2020 Potassium monitoring Potassium monit [place]ing [place] Start: 05-22-2020 Lipid screen Lipid screen [place], [place] Start: 08-23-2019 End: 08-23-2019 Office Visit 08/23/2019 Office Visit Neurology Jose Michael MD [address] [facility] [address] [place], [place] [id number] [facility] Start: 07-05-2019 End: 07-05-2019 Office Visit 07/05/2019 Office Visit Neurology Ashleigh Mcmahon, STRIP DEBURRER - PRINTER'S ASSISTANT [address] [place], [place] [id number] [facility] Specialist Start: 06-17-2019 End: 06-17-2019 Office Visit 06/17/2019 Office Visit Neurology Gayathri Maradiaga MD [address] [facility] [address] [place], [place] [id number] [facility] Start: 06-10-2019 End: 05-26-2020 CTA HEAD W CONTRAST CTA HEAD W CONTRAST Imaging Routine Subarachnoid hemorrhage (HCC) Expected: 06/10/2019, Expires: 05/26/2020 [place], [place] Comment on above: Expected: 06/10/2019 , Expires: 05/26/2020 Start: 05-30-2019 Patient encounter procedure Ambulatory Facility: Start: 11-14-2018 Influenza vaccination Flu vaccine (# 1) [place], [place] Start: 2012 Breast cancer screen Breast cancer s creen [place], [place] Start: 2012 Colon cancer screen colonoscopy Colon cancer screen colonoscopy [place], [place] Start: 2012 Shingles Vaccine (1 of 2) Shingles Vaccine (1 of 2) [place] Start: 12-14-1983 Cervical cancer screen Cervical canc er screen [place], [place] Start: 1977 HIV screen HIV screen [place], [place] End: 05-29-2019 Basic metabolic 2000 panel Basic metabolic panel Lab Routine Tomorrow AM for 7 Occurrences starting 05/23/2019 until 05/29/2019, [facility] above: Tomorrow AM for 7 Oc currences starting 05/23/2019 until 05/29/2019, 5 completed End: 05-29-2019 CBC CBC Lab Routine Tomorrow AM for 7 Occurrences starting 05/23/2019 until 05/29/2019, 5 completed [facility] [place] Comment on above: Tomorrow AM for 7 Oc currences starting 05/23/2019 until 05/29/2019, 5 completed End: 05-24-2019 CRYOGLOBULIN CRYOGLOBULIN Lab Routine One Time for 1 Occurrences starting 05/24/2019 until 05/24/2019 [facility] Comment on above: One Time for 1 Occur rences starting 05/24/2019 until 05/24/2019 CRYOGLOBULIN CRYOGLOBULIN Lab Routine 05/24/2019 11:29 AM EDT [facility] End: 05-24-2019 FACTOR 5 LEIDEN FACTOR 5 LEIDEN Lab Routine One Time for 1 Occurrences starting 05/24/2019 until 05/24/2019 [facility] [place] Comment on above: One Time for 1 Occur rences starting 05/24/2019 until 05/24/2019 End: 05-25-2019 Factor V Leiden Mutation Factor V Leiden Mutation Lab Routine Once for 1 Occurrences starting 05/25/2019 until 05/25/2019 [facility] [place] Comment on above: Once for 1 Occurrenc es starting 05/25/2019 until 05/25/2019 Initiate Oxygen Ther apy Protocol [facility] Comment on above: Daily until disconti nued starting 05/22/2019 Daily until disconti nued starting 05/24/2019 IR ANGIOGRAM CAROTID C EREBRAL BILATERAL IR ANGIOGRAM CAROTID C EREBRAL BILATERAL Imaging Routine 05/24/2019 10:21 AM EDT [facility] End: 06-05-2019 Magnesium [Mass/Vol] Magnesium Lab Routine Daily for 14 Occurrences starting 05/23/2019 until 06/05/2019, 5 completed [facility] [place] Comment on above: Daily for 14 Occurre nces starting 05/23/2019 until 06/05/2019, 5 completed End: 05-25-2019 Miscellaneous lab test #1 Miscellaneous lab test #1 Lab Add-On One Time for 1 Occurrences starting 05/25/2019 until 05/25/2019 [place] Comment on above: One Time for 1 Occur rences starting 05/25/2019 until 05/25/2019 POCT glucose [place] Comment on above: 4X Daily (AC & HS) u ntil discontinued starting 05/24/2019 As Needed until disc ontinued starting 05/24/2019 Pulse Oximetry Spot Check Pulse Oximetry Spot Check Respiratory Care Routine As Needed until discontinued starting 05/24/2019 [place] Comment on above: As Needed until disc ontinued starting 05/24/2019 Pulse oximetry, continuous Pulse oximetry, continuous Respiratory Care Routine Every 4hr until discontinued starting 05/23/2019 [place] Comment on above: Every 4hr until disc ontinued starting 05/23/2019 Payers Date Payer Category Payer Self-pay [id number] 2014 Unknown NWO PLUMBERS PIP EFITTERS RET NWO ASSEMBLER HANDBAGS FEEDER CATCHER TOBACCO FRONTPATH xxxxxxxxxx 2014-Present [phone] [address] [place] [address] xxxxxxxxxx [id number] 1960 Unknown [id number] 2.840.1.134419.3.579.2.593 1960 Unknown [id number] 2.840.1.510488.3.579.2.593 1962 Unknown [id number] 2.840.1.961044.3.579.2.59 1962 Unknown [id number] 2.16840.1.170388.3.579.2.593 1962 Unknown [id number] 2.16840.1.157694.3.579.2.593 1962 Unknown [id number] 2.16.840.1.190288.3.579.2.593 1962 Unknown [id number] 2.16.840.1.667432.3.579.2.593 1962 Unknown [id number] 2.16.840.1.004216.3.579.2.593 1962 Unknown [id number] 2.16.840.1.473023.3.579.2.593 1962 Unknown [id number] 2.16.840.1.307555.3.579.2.593 1962 Unknown [id number] 2.16.840.1.994541.3.579.2.593 1962 Unknown [id number] 2.16.840.1.986338.3.579.2.176 1962 Unknown [id number] 2.16.840.1.446782.3.579.2.176 1962 Unknown [id number] 2.16.840.1.077897.3.579.2.176 1962 Unknown [id number] 2.16.840.1.208114.3.579.2.175 1962 Unknown [id number] 2.16.840.1.442785.3.579.2.125 9 1962 Unknown [id number] 2.16.840.1.712654.3.579.2.125 9 1962 Unknown [id number] 2.16.840.1.760393.3.579.2.125 9 1962 Unknown [id number] 2.16.840.1.779454.3.579.2.125 9 1962 Unknown [id number] 2.16.840.1.642414.3.579.2.125 9 1962 Unknown [id number] 2.16.840.1.817707.3.579.2.125 9 1959 Unknown [id number] Unknown [id number] 2.16.840.1.947737.3.579.2.531 Social History Date Type Detail Facility Start: 05-22-2019 End: 01-14-2021 Tobacco smoking status NHIS Never smoker [facility] Start: 05-22-2019 Alcohol intake Current drinke r of [facility] (finding) [facility] Start: 05-22-2019 Alcohol Comment Socially [facility] Sex Assigned At Not on file [facility] Start: 1960 Sex Assigned At Female F [facility] Discharge summary note 11-17-2020 Note Date & Type Note Facility 11-17-2020 Note [facility] Patient: SULY HUFFMAN [facility] [place] [address] MR#: [id number] DISCHARGE SUMMARY : 64 Service Date: 11/17/20 [...] Ortho 11/21/20 For Providers: Anil Singer MD [address] [place] [address] CALL OFFICE ON THURSDAY FOR APPOINTMENT TIME ON THURSDAY FOR DRAIN REMOVAL Condition Improved, Stable, Good Disposition Home Electronically Signed eSign Date and Time Hina Richardson Residen [facility] Evaluation note Note Date & Type Note Facility Evaluation note No assessment [facility]: Summary Purpose Family History No Family History Records Found Relationship Condition Age at Onset Recorded Date/T lily father Heart disease Unknown Malignant neoplasm Unknown Not Specified Hypertension Unknown sister Malignant neoplasm of thyroid gland Unkno wn Advance Directives No Advanced Directives Records FoundDocuments on File Type Date Recorded Patient Marker Maker Expl anation Advance Directives and Living Will Power of Automatic Engraver Latest Code Status on File Code Status Date Activated Date Inactivated Comments Full Code 05/24/2019 12:07 PM Full Code 05/22/2019 8:41 PM 05/24/2019 12:06 PM Documents on File Type Date Recorded Patient Marker Maker Expl anation Advance Directives and Living Will Power of Automatic Engraver Latest Code Status on File Code Status [...] CONTRAST Courtney Lion APRN - CNP [address] [place] [address] Status Reason Specialty Diagnoses / Procedures Referre d By Contact Referred To Contact Closed Radiology Diagnoses Subarachnoid hemorrhage (HCC) Procedures CTA HEAD W CONTRAST HC CTA forklift mechanicCourtney Lion APRN - CNP [address] [facility] [address] [place] [address] Discharge Instructions * Discharge Instr - Activity* [...] Agent's Name Healthcare Agent's Phone Number 05/22/19 [phone] No, patient does not have an advance [...] Independent Dressing Independent Toileting Independent Feeding Assisted Construction Analyst Independent Med Delivery crushed Wound Care Documentation [...] Respiratory Treatments: none Oxygen Therapy: {Therapy; copd oxygen:90327} Ventilator: { CC Vent List:276737352} Rehab Therapies: Speech/Language Therapy Weight Bearing Status/Restrictions: No weight bearing restirctions Other Medical Equipment (for information only, NOT a DME order): {EQUIPMENT:056946755} Other Treatments: Patient's personal belongings (please select all that are sent with patient): None RN SIGNATURE: CASE MANAGEMENT/SOCIAL WORK SECTION Inpatient Status Date: Readmission Risk Assessment Score: Readmission Risk Risk of Unplanned Readmission: 11 Discharging to Facility/ Agency Name: Address: Phone: Fax: Dialysis Facility (if applicable) Name: Address: Dialysis Schedule: Phone: Fax: Nuclear Physics Professor/Plaster Die Maker signature: {Esignature:430519029} PHYSICIAN SECTION Prognosis: {Prognosis:2848333968} Condition at Discharge: { Patient Condition:363618334} Rehab Potential (if transferring to Rehab): {Prognosis:8783157787} Recommended Labs or Other Treatments After Discharge: Physician Certification: I certify the above information and transfer of Suly Huffman is necessary for the continuing treatment of the diagnosis listed and that she requires {Admit to Appropriate Level of Care:77947} for {GREATER/LESS:626444737} 30 days. Update Admission H&P: {CHP DME Changes in HandP:860911834} PHYSICIAN SIGNATURE: {Esignature:733002079} * Additional Instructions* Courtney Lion APRN - NIKITA - 05/25/2019 Take your medications as prescribed. [...] be sent through Care Everywhere. * Seizure (Mauritanian) * Subarachnoid Hemorrhage: General Info (Mauritanian) documented in this encounter History of Present Illness * Kristin Rankin, PT - 05/26/2019 10:28 AM EDT Physical Therapy Facility/Department: [address] NEURO Daily Treatment Note NAME: Suly [...] 13 KRISTIN RANKIN PT * Sandra Lock, STRIP DEBURRER - PRINTER'S ASSISTANT - 05/26/2019 7:36 AM EDT Daily Progress [...] depression who presents as a transfer from [facility] for subarachnoid hemorrhage with 3 mm [...] the day. Loaded with 2g Keppra followed [id number] BID. LTME started. 05/23: Two episodes of [...] mostly in the right anterior circulation, distal LICENSED PRACTICAL VOCATIONAL NURSE branches with moderate focal segmental vasospasm. Findings [...] factor in 2015 and was evaluated at [facility], but specialist at that time did [...] mostly in the right anterior circulation, distal LICENSED PRACTICAL VOCATIONAL NURSE branches with moderate focal segmental vasospasm - [...] Neuro Critical Care. Sandra Lock APRN - [facility] Neuro Critical Care Pager [phone] 05/26/2019 7:36 AM Associated attestation - Arleth Wilder MD - 05/27/2019 8:50 AM EDT Neuro critical care: CSF studies reviewed and WBCs elevated at 92 and RBC 10,000. Proteins elevated in 90s. Of note, patient reported today visiting [facility] 5 year s ago for elevated RA factor in 120s. No followup , clinical issues or diagnosis since. RA factor elevated again in 120s. Rheumatology consulted to evaluate for suspicion/ differential of GLASS FURNACE TENDER vasculitis. CSF sent to [facility] for autoimmune panel testing Continue keppra, [...] TRANSPORT. SAMPLES OBTAINED SENT TO LAB PER PATTERN AND CHAIN MAKER RN. * Nancy Pérez OTA - 05/25/2019 11:38 AM EDT Occupational Therapy Facility/Department: [address] Daily Treatment Note NAME: Suly Huffman [...] of Care Patient Education: purpose of OT; [facility] activity Barriers to Learning: pt sabine Pak [...] activity in order to improve ROM and cuffer for ADL tasks, pt sabine Pak understanding. [...] 23 Timed Code Treatment Minutes: 23 Minutes LARUEN Vann/Mikaela * Kristin Rankin, PT - 05/25/2019 [...] No further needs. KRISTIN RANKIN PT * LionCourtney, CLIFFORD - PRINTER'S ASSISTANT - 05/25/2019 8:05 AM EDT Daily Progress Note Neuro Critical Care Patient Name: Suly Huffman Patient : 1960 Room/Bed: [facility]/0523-01 Code Status: FULL Allergies: Allergies Allergen Reactions Augmentin [Amoxicillin-Pot Clavulanate] Diarrhea CHIEF COMPLAINT: Intermittent left sided paresthesias and weakness INTERVAL HISTORY Initial Presentation (Admitted 05/22/19): The patient is a 58 yo female with history of HTN, HLD, and depression who presents as a transfer from [facility] for subarachnoid hemorrhage with 3 mm [...] the day. Loaded with 2g Keppra followed [id number] BID. LTME started. 05/23: Two episodes of [...] mostly in the right anterior circulation, distal LICENSED PRACTICAL VOCATIONAL NURSE branches with moderate focal segmental vasospasm. Findings [...] mostly in the right anterior circulation, distal LICENSED PRACTICAL VOCATIONAL NURSE branches with moderate focal segmental vasospasm - [...] Neuro Critical Care. Courtney Lion APRN - [facility] Neuro Critical Care Pager [phone] 05/25/2019 8:05 AM Associated attestation - Arleth [...] Will continue to monitor. * Maliha Gu, AINSLEY - 05/24/2019 2:28 PM EDT Physical Therapy [...] Vl Transcranial Doppler Complete Result Date: 05/23/2019 [facility] Vascular Transcranial Procedure Patient Name NATHANAEL Date of Study 05/23/2019 SULY Farmer Date of 1960 Gender Female Age 58 year(s) Race Room Number 0523 Corporate ID [id number] # Patient Acct [id number] # MR # [id number] Device Test Engineer Carole Hooks RVT, [facility] Interpreting Gunnar Morgan Physician Referring Referring Physician SANDRA LOCK APRN-[facility] Nurse Practitioner Additional Comments CLASSIFICATION OF [...] 85.1 Mid AMAIRANI: 83.9 Mid AMAIRANI: 105 LICENSED PRACTICAL VOCATIONAL NURSE: 32.3 LICENSED PRACTICAL VOCATIONAL NURSE: 22.7 T ICA: 40.4 T ICA: 37.7 [...] mostly in the right anterior circulation, distal LICENSED PRACTICAL VOCATIONAL NURSE branches with moderate focal segmental vasospasm - Neuro critical care possibly plan for LP for CSF studies to r/o possible vasculitis - Neurosurgery will sign off at this time Please contact neurosurgery with any changes in patients neurologic status. Garfield Dumont, PRINTER'S ASSISTANT 05/24/19 12:18 PM I have seen and [...] 10 daily * Courtney Lion, CLIFFORD - PRINTER'S ASSISTANT - 05/24/2019 7:41 AM EDT Daily Progress Note Neuro Critical Care Patient Name: Suly Huffman Patient : 1960 Room/Bed: [facility]/0523-01 Code Status: FULL Allergies: Allergies Allergen Reactions Augmentin [Amoxicillin-Pot Clavulanate] Diarrhea CHIEF COMPLAINT: Intermittent left sided paresthesias and weakness INTERVAL HISTORY Initial Presentation (Admitted 05/22/19): The patient is a 58 yo female with history of HTN, HLD, and depression who presents as a transfer from [facility] for subarachnoid hemorrhage with 3 mm [...] the day. Loaded with 2g Keppra followed [id number] BID. LTME started. Last 24h: Two episodes [...] mostly in the right anterior circulation, distal LICENSED PRACTICAL VOCATIONAL NURSE branches with moderate focal segmental vasospasm. Findings [...] 14 05/24/19 0110 (!) 145/60 58 18 03/10/20 0046 (!) 138/50 98 F (36.7 C) Oral 53 17 05/23/19 2303 (!) 114/45 58 18 (!) 87 % 05/23/192202 (!) 154/60 57 17 90 % 05/23/19 [...] mostly in the right anterior circulation, distal LICENSED PRACTICAL VOCATIONAL NURSE branches with moderate focal segmental vasospasm - [...] Neuro Critical Care. 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 [...] of Movement Other Comment: Pt demo'd poor [id number] test after episode this date, pt performed [...] Equipment Evaluation, Education, & procurement, Balance Training [facility] Inpatient Daily Activity Raw Score: 20 (05/23/191114) [facility] Inpatient ADL T-Scale Score : 42.03 (05/23/191114) ADL Inpatient CMS 0-100% Score: 38.32 (05/23/191114) ADL Inpatient [facility] G-Code Modifier : CJ (05/23/191114) Goals Short [...] 9:33 AM EDT Speech Language Pathology Facility/Department: [address] Initial Speech/Language/Cognitive Assessment NAME: Suly Huffman : 1960 ADMISSION DATE: 05/22/2019 ADMITTING DIAGNOSIS: has Subarachnoid hemorrhage (HCC) on their problem list. Date of Eval: 05/23/2019 Evaluating Therapist: Diamond Barnes Primary Complaint: The patient is a 58 y.o. female presented as a transfer from [facility] after being found tohave subarachnoid hemorrhage [...] Verbal and written education provided. Recommendations: Requires BICYCLE TAXI DRIVER Intervention: No Plan: Goals: Patient/family involved in [...] Time: Individual Concurrent Group Co-treatment Time In 0915 Time Out 0926 Minutes 11 Completed by: Diamond Barnes, Crimping Press Operator Clinician Cosigned By: Ashlee Grimm M.S.CCC/MANDI 05/23/2019 [...] AMITA NAVARRO 8:35 AM * Sandra Lock, STRIP DEBURRER - PRINTER'S ASSISTANT - 05/23/2019 8:26 AM EDT Daily Progress Note Neuro Critical Care Patient Name: Suly Huffman Patient : 1960 Room/Bed: [address] [place] [address] Code Status: Full Allergies: Allergies Allergen Reactions Augmentin [Amoxicillin-Pot Clavulanate] Diarrhea CHIEF COMPLAINT: Left sided numbness INTERVAL HISTORY Initial Presentation (Admitted 05/22/19): The patient is a 58 yo female with history of HTN, HLD, and depression who presents as a transfer from [facility] for subarachnoid hemorrhage with 3 mm [...] INFUSIONS: sodium chloride 100 mL/hr at 05/22/19 0933 PRN MEDICATIONS: benzonatate, sodium chloride flush, sodium [...] data in the 24 hours ending 05/23/19 0826 IMAGING: VL TRANSCRANIAL DOPPLER COMPLETE Final Result [...] Neuro Critical Care. Sandra Lock APRN - [facility] Neuro Critical Care Pager [phone] 05/23/2019 8:26 AM Associated attestation - Arleth [...] Attending Note I have reviewed the above [facility] resident progress note and I either performed the rushing elements of the medical history and physical exam or was present when the resident performed them. I have discussed the findings, established the care plan and recommendations with resident, [facility] nurse Kenneth and bedside nurse. The following [...] has loss of fine motor control. Weak cuffer, and able to weakly push/pull against resistance. [...] content) DATE CREATED AUTHOR 05/24/2019 [facility] DATE CREATED AUTHOR AUTHOR'S ORGANIZ ATION 06/12/2019 [facility] DATE CREATED AUTHOR AUTHOR'S ORGANIZ ATION 06/14/2019 [facility] DATE CREATED AUTHOR AUTHOR'S ORGANIZ ATION 04/29/2021 [facility] DATE CREATED AUTHOR AUTHOR'S ORGANIZ ATION 09/11/2021 [facility] DATE CREATED AUTHOR AUTHOR'S ORGANIZ ATION 06/09/2023 [facility] [place] DATE CREATED AUTHOR AUTHOR'S ORGANIZ ATION 07/08/2023 [facility] EPIC Reason for Visit (unrecogniz ed section and content) Reason Comments Headache Anterior headache Numbness Intermittent LUE and LLE numbness and tingling since Thursday, SAH on CT Status Reason Specialty Diagnoses / Procedures Referre d By Contact Referred To Contact Diagnoses Subarachnoid hemorrhage (HCC) Cecilio Sherman MD [address] [place] [address] [facility] Status Reason Specialty Diagnoses / Procedures Referre d By Contact Referred To Contact Closed Radiology Diagnoses Subarachnoid hemorrhage (HCC) Procedures CTA HEAD W CONTRAST HC CTA forklift mechanicCourtney Lion, STRIP DEBURRER - PRINTER'S ASSISTANT [address] [place] [address] Goals (unrecognized section and content) Goals may be documented in a n alternate sectionGoals may be documented in an alternate section Care Teams (unrecognized sec tion and content) Team Status: Inactive Member Role Status Dates Bart Liz Attending Provider Active Start: [facility] 2023 End: June 05, 2023 FOR RECORDS [...] BE BASED ON THE PRIMARY CLINICAL RECORDS. [facility] [employer] provides no warranty or guarantee of the accuracy or completeness of information in this document.
[2023-07-22] MEDS: LACTATED RINGER'S SOLUTION 1,000 ML 50 ML IV (07:10)
[2023-07-22] MEDS: CIPROFLOXACIN IN 5 % DEXTROSE 400 MG/200 ML PIGGYBACK 200 MG IV (07:10)
[2023-07-22] MEDS: METRONIDAZOLE/SODIUM CHLORIDE 500 MG/100 ML PREMIX 100 MG IV ×2 (08:20→16:17)
[2023-07-22] MEDS: LACTATED RINGER'S SOLUTION 1,000 ML 75 ML IV (11:14)
--- NOTE | 2023-07-22 12:53 | P.ON_ITS ---
Brief Operative Note Date of procedure: 07/22/23 Pre-op diagnosis general: uterine fibroid(large), dyspareunia, dyspareunia Post-op diagnosis: same as pre-op Procedure: NAME OF PROCEDURE: ? Robotic assisted laparoscopic hysterectomy with cystoscopy, bilateral salpingoopherectomy PROCEDURE:? The patient was taken back to the operating room, where she was prepped and draped in the normal sterile fashion after being placed in the dorsal lithotomy position.? Patient?s anesthesia was found to be adequate.? Surgical timeout was performed using two patient identifiers.? SCDs were on and in place.? Two grams of Ancef were given prior to the surgery.? Sterile Lui catheter was inserted.? Standard size VCare was secured to the uterine cervix and the surgeon changed gloves.? Attention then was turned to the patient's abdomen, where a supraumbilical incision was then made.? Two S retractors were used to identify the patient?s fascia.? The fascia was then tented up using Octaviano clamps and the patient?s fascia was incised sharply.? Patient?s abdomen was identified and entered bluntly.? The patient had the trocar placed and a pneumoperitoneum was obtained.? Approximately 4 liters of CO2 gas was used.? The camera was then placed through the trocar.? At this time, two robot trocars were placed in the patient?s left and right side, two hand widths from the midline, and this was p laced under direct visualization.? The patient?s rt tube and ovary was tented up and the vessel sealer was then used to come across the mesosalpinx and infundibular pelvic ligament, and this was carried down to the uterine ovarian ligament.? The vessel sealer was carried down serially to the broad ligament, to the area of the bladder flap, which was then created anteriorly, and the uterine arteries were skeletonized and sealed using the vessel sealer.? This was performed on the contralateral side. The colpotomy was made using the monopolar cautery on cut, and this was carried circumferentially, posteriorly to anteriorly, until the uterus was amputated.? The specimen was then removed intact through the vagina, without difficulty.? The vagina was then closed using two running V-Loc in a non-lock fashion.? The robot was undocked.? The abdomen was desufflated.? The skin defects were closed using 4-0 Vicryl.? Please note, the fascia was closed using 0 Vicryl.? Sponge, lap and needle counts were correct x2.? Patient was taken to recovery room in stable condition.? The patient was awakened by Anesthesia first.? Patient tolerated procedure well.??Please note left ovarian cystectomy was performed using the vessel sealer Anesthesia: YOLY Surgeon: Bart Liz Game Attendant: Larissa Irwin Estimated blood loss (mL): 100 Pathology: other (uterus tubes ovaries and cervix) Condition: stable Disposition: PACU Urinary Catheter Management Urinary Catheter Management Urethral: Cath placed during this visit: no
[2023-07-22] MEDS: DOCUSATE SODIUM 100 MG CAPSULE PO (17:08)
[2023-07-22] MEDS: OXYCODONE HCL/ACETAMINOPHEN 5MG/325MG 1 TAB PO ×2 (17:08→22:42)
[2023-07-22] MEDS: KETOROLAC TROMETHAMINE 30 MG/ML VIAL IVP (18:28)
[2023-07-22] MEDS: LACTATED RINGER'S SOLUTION 1,000 ML 125 ML IV (18:33)
[2023-07-22] MEDS: TEMAZEPAM 15 MG CAPSULE 30 MG PO (22:42)
[2023-07-23] MEDS: KETOROLAC TROMETHAMINE 30 MG/ML VIAL IVP (02:29)
[2023-07-23] MEDS: OXYCODONE HCL/ACETAMINOPHEN 5MG/325MG 2 TAB PO (02:29)
[2023-07-23] MEDS: LACTATED RINGER'S SOLUTION 1,000 ML 125 ML IV (02:30)
[2023-07-23 04:00] VITALS: BP 114/66; PULSE 69; TEMP 36.3; O2SAT 95
[2023-07-23 07:47] LABS: Basophils Percent Auto 0.1 % (0.2-2.0); Hematocrit 36.2 % (36.0-48.0); Hemoglobin 12.1 g/dL (12.0-16.0); Immature Granulocytes Abs Auto 0.07 10^3/uL (0.00-0.03); Immature Granulocytes Pct Auto 0.3 % (0.0-0.5); Lymphocytes Absolute Auto 1.3 10^3/uL (1.2-3.8); Lymphocytes Percent Auto 6.2 % (20.5-60.0); Mean Corpuscular HGB Conc 33.4 g/dL (29.9-35.2); Mean Corpuscular Hemoglobin 28.9 pg (26.7-34.0); Mean Corpuscular Volume 86.4 fL (81.0-99.0); Mean Platelet Volume 9.7 fL (9.5-13.5); Monocytes Absolute Auto 1.2 10^3/uL (0.3-0.8); Monocytes Percent Auto 5.7 % (1.7-12.0); Neutrophils Absolute Auto 17.6 10^3/uL (1.4-6.5); Neutrophils Percent Auto 87.7 % (43.0-75.0); Platelet Count 219 10^3/uL (150-450); Red Blood Count 4.19 10^6/uL (4.20-5.40); Red Cell Distribution Width 13.3 % (11.0-15.0); White Blood Count 20.1 10^3/uL (4.0-11.0)
[2023-07-23 08:00] VITALS: BP 110/57; PULSE 65; TEMP 36.3; O2SAT 98
[2023-07-23] MEDS: SIMETHICONE 80 MG TAB.CHEW PO (08:02)
[2023-07-23] MEDS: MAGNESIUM HYDROXIDE 2,400 MG/10 ML ORAL.SUSP 2400 MG PO (08:02)
[2023-07-23] MEDS: ENOXAPARIN SODIUM 40 MG/0.4 ML SYRINGE SUBQ (08:02)
[2023-07-23] MEDS: OXYCODONE HCL/ACETAMINOPHEN 5MG/325MG 1 TAB PO (08:44)
== END 2023-07-23 09:54 | disposition home or self-care (01) ==
LOC: SURGOUT 13:00 → MS 13:35 → SURGOUT 14:03 → MS 14:35
PROVIDERS: PCP Family Medicine; Visit Provider Obstetrics & Gynecology
PROC: (CPT 840; principal; 2023-07-22 07:30)
DX: N94.10 Unspecified dyspareunia (principal); N80.03 Adenomyosis of the uterus; R10.2 Pelvic and perineal pain; N94.6 Dysmenorrhea, unspecified; Z79.899 Other long term (current) drug therapy; E78.00 Pure hypercholesterolemia, unspecified; N95.0 Postmenopausal bleeding; I10 Essential (primary) hypertension; R79.89 Other specified abnormal findings of blood chemistry; R94.31 Abnormal electrocardiogram [ECG] [EKG]; F41.9 Anxiety disorder, unspecified; M47.812 Spondylosis without myelopathy or radiculopathy, cervical region; G62.9 Polyneuropathy, unspecified; E55.9 Vitamin D deficiency, unspecified; K21.9 Gastro-esophageal reflux disease without esophagitis; E66.9 Obesity, unspecified; Z68.33 Body mass index [BMI] 33.0-33.9, adult
CPT/HCPCS: 58571; 36415; 85025; 88307; 94667; 94668; 96372; 96374; J1094; J1170; J2704